=== PATIENT | female | born 1965 | race Hispanic/Latino ===

== ENCOUNTER 2017-12-25 00:12 | Emergency (ER) | payer OTHER, SELFPAY ==
[2017-12-25 00:47] LABS: Urine Bacteria <20 /HPF (<20); Urine Culture Reflex Order REFLEXED; Urine RBC 20-50 /HPF (NONE SEEN)
[2017-12-25 00:52] LABS: Urine Blood 1+ (NEG); Urine Glucose TRACE (NEG); Urine Protein 2+ (NEG); Urine Specific Gravity 1.015 (1.005-1.030)
[2017-12-25] MEDS ORDERED: MORPHINE 4 MG/ML SYR ONE (01:25)
[2017-12-25] MEDS ORDERED: ONDANSETRON 4 MG/2 ML VIAL ONE (01:26)
[2017-12-25 01:29] LABS: Absolute Lymphocytes (CBC) 1.8 K/uL (0.7-4.9); Absolute Monocytes 0.6 K/uL (0.1-1.3); Absolute Neutrophil 4.7 K/uL (1.8-8.0); Basophils % 0.4 % (0-1.3); Eosinophils % 2.8 % (0-4.4); Hematocrit 34.9 % (36.0-45.0); Lymphocytes % 24.3 % (15.3-44.8); MCH 26.4 pg (27.0-35.0); MCV 80.6 fL (80-100); MPV 8.3 fL (7.6-11.3); Monocytes % 8.2 % (3.3-12.3); RBC Red Blood Cell Count 4.33 M/uL (3.86-4.86)
[2017-12-25 01:46] LABS: Bicarbonate 27 mEq/L (21-31); Glucose Level 111 mg/dL (65-120); Potassium 3.4 mEq/L (3.6-5.0); Sodium Level 139 mEq/L (135-145)
[2017-12-25 01:49] LABS: ALT/SGPT 16 IU/L (10-60); AST/SGOT 22 IU/L (10-42); Albumin 3.9 g/dL (3.2-5.5); BUN Blood Urea Nitrogen 8 mg/dL (6-20); Bilirubin Total 0.8 mg/dL (0.3-1.2); Protein, Total 7.7 g/dL (6.0-8.3)
[2017-12-25] MEDS ORDERED: NA CHLORIDE 0.9% 1,000 ML ONE (01:50)
[2017-12-25 01:52] LABS: Amylase Level 69 U/L (28-100); Bilirubin Direct < 0.1 mg/dL (0-0.2)
[2017-12-25 02:11] LABS: Alkaline Phosphatase 107 IU/L (42-121); Lipase 23 U/L (22-51)
[2017-12-25] MEDS ORDERED: POTASSIUM CL SA 10 MEQ TAB PO ONE (03:31)
[2017-12-25] MEDS ORDERED: CEFTRIAXONE/SWI 1gm 1 GM/10 ML SYR ONE (04:10)
--- NOTE | 2017-12-25 04:21 | ER ---
Nurse's Notes [facility] Name: Mi Escoto Age: 52 yrs Sex: Female : 1965 Arrival Date: 12/25/2017 Time: 00:15 Bed 20 Private MD: Diagnosis: Abdominal pain Urinary tract infection Presentation: 12/25 00:33 Presenting complaint: Patient states: she started having lower abdominal pain and bb difficulty urinating since approx 2200 last night. Transition of care: patient was not received from another setting of care. Onset of symptoms was December 24, 2017. Initial Sepsis Screen: Does the patient meet any 2 criteria? No. Patient's initial sepsis screen is negative. Does the patient have a suspected source of infection? No. Patient's initial sepsis screen is negative. Care prior to arrival: None. 00:33 Method Of Arrival: Ambulatory bb 00:33 Acuity: CARMEN 3 bb Triage Assessment: 00:35 General: Appears uncomfortable, Behavior is cooperative, anxious. Pain: Complains of bb pain in abdomen Pain currently is 10 out of 10 on a pain scale. Neuro: Level of Consciousness is awake, alert, obeys commands, Oriented to person, place, time, situation. Cardiovascular: No deficits noted. Respiratory: Respiratory effort is even, unlabored. GI: Abdomen is non-distended. GI: Reports lower abdominal pain. : Reports burning with urination. Derm: Skin is pink, warm \T\ dry. Musculoskeletal: Circulation, motion, and sensation intact. 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 - Social history:: Smoking status: Patient/guardian denies using tobacco, Patient/guardian denies using alcohol, street drugs. Screenin:37 Abuse screen: Denies threats or abuse. Nutritional screening: No deficits noted. bb Tuberculosis screening: No symptoms or risk factors identified. Fall Risk None identified. Assessment: 00:37 Reassessment: No changes from previously documented assessment. see triage assessment. bb 00:38 GI: Bowel sounds present X 4 quads. Abd is soft X 4 quads. bb 01:48 Reassessment: Patient and/or family updated on plan of care and expected duration. Pain bb level reassessed. Patient is alert, oriented x 3, equal unlabored respirations, skin warm/dry/pink. Patient states feeling better. 02:25 Reassessment: pt returned from CT scan via wheelchair tolerated procedure well. bb 03:00 Reassessment: pt appears to be sleeping, eyes closed, resp unlabored, states she is bb feeling better awaiting results of CT scan, IV site intact, patent, with fluids infusing, family at bedside. 04:15 Reassessment: Patient and/or family updated on plan of care and expected duration. Pain bb level reassessed. Patient is alert, oriented x 3, equal unlabored respirations, skin warm/dry/pink. Dr Godfrey at bedside for discussion of findings and recommendations pt to be discharged home on antibiotics and follow-up with PCP as needed. Pt verbalized understanding of and agrees to plan of care discharge instructions given. 04:30 Reassessment: Patient is alert, oriented x 3, equal unlabored respirations, skin bb warm/dry/pink. pt states pain is gone, verbalized understanding of and agrees to plan of care discharge instructions given pt ambulated with steady gait accompanied by spouse. Vital Signs: 00:35 BP 150 / 103; Pulse 110; Resp 20 S; Temp 99(O); Pulse Ox 96% on R/A; Weight 83.01 kg bb (R); Height 5 ft. 5 in. (165.10 cm) (R); Pain 10/10; 01:47 BP 146 / 86; Pulse 70; Resp 20 S; Pulse Ox 97% on R/A; Pain 6/10; bb 02:59 BP 125 / 73; Pulse 67; Resp 18 S; Pulse Ox 96% on R/A; bb 04:16 BP 134 / 82; Pulse 67; Resp 16 S; Temp 98.1(O); Pulse Ox 99% on R/A; Pain 0/10; bb 00:35 Body Mass Index 30.45 (83.01 kg, 165.10 cm) bb ED Course: 00:15 Patient arrived in ED. es 00:22 Jarred Godfrey MD is Attending Physician. pkl 00:31 Josie Flynn, LOGAN is Primary Nurse. bb 00:34 Triage completed. bb 00:35 Arm band placed on Patient placed in an exam room, on a stretcher, on pulse oximetry. bb Family accompanied patient. 00:37 Patient has correct armband on for positive identification. Call light in reach. Side bb rails up X 1. Adult w/ patient. Pulse ox on. NIBP on. 00:37 Urine collected: clean catch specimen. bb 01:20 Initial lab(s) drawn, by me, sent to lab. Inserted saline lock: 20 gauge in right bb antecubital area, using aseptic technique. Blood collected. 02:[address] nj 02:22 CT completed. Patient tolerated procedure well. Patient moved back from [place]. nj 02:23 CT Abd/Pelvis - W/Contrast In Process Unspecified. EDMS 02:57 Urine Culture Sent. bb 04:31 No provider procedures requiring assistance completed. IV discontinued, intact, bb bleeding controlled, No redness/swelling at site. Pressure dressing applied. Administered Medications: 01:27 Drug: morphine 4 mg Route: IVP; Site: right antecubital; bb 01:48 Follow up: Response: No adverse reaction; Pain is decreased bb 01:28 Drug: Zofran 4 mg Route: IVP; Site: right antecubital; bb 01:48 Follow up: Response: No adverse reaction bb 01:47 Drug: NS 0.9% 1000 ml Route: IV; Rate: 1000 ml; Site: right antecubital; bb 03:34 Follow up: IV Status: Completed infusion; IV Intake: 1000ml bb 03:34 Drug: K-Dur 20 mEq Route: PO; bb 04:03 Follow up: Response: No adverse reaction bb 04:15 Drug: Rocephin 1 grams Route: IV; Rate: calculated rate; Site: right antecubital; bb 04:20 Follow up: IV Status: Completed infusion; IV Intake: 10ml bb Intake: 03:34 IV: 1000ml; Total: 1000ml. bb 04:20 IV: 10ml; Total: 1010ml. bb Outcome: 04:20 Discharge ordered by . pkl 04:32 Discharged to home ambulatory, with family. bb 04:32 Condition: stable 04:32 Discharge instructions given to patient, Instructed on discharge instructions, follow up and referral plans. medication usage, Demonstrated understanding of instructions, follow-up care, medications, Prescriptions given X 2. 04:32 Patient left the ED. [email or web address] Addendum: 12/28/2017 08:17 Addendum: Culture Results: Positive urine culture. No further action required. Bacteria a a5 sensitive to prescribed antibiotic. Signatures: Dispatcher [employer] Jarred Nolasco MD MD pkl Salyer, Edna es Ballard, Brenda RN RN Tanya Roman RN RN aa5 Patrick Stacy
--- NOTE | 2017-12-25 04:21 | EDPHYS ---
Physician Documentation [facility] Name: Mi Escoto Age: 52 yrs Sex: Female : 1965 Arrival Date: 12/25/2017 Time: 00:15 Bed 20 Private MD: ED Physician Jarred Godfrey HPI: 12/25 01:39 This 52 yrs old Female presents to ER via Ambulatory with complaints of pkl Abdominal Pain. 01:39 The patient presents with pelvic pain, urinary symptoms, dysuria, frequency. Onset: The pkl symptoms/episode began/occurred just prior to arrival, 3 hour(s) ago. 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 - Social history:: Smoking status: Patient/guardian denies using tobacco, Patient/guardian denies using alcohol, street drugs. ROS: 01:39 Positive for urinary symptoms, urinary frequency, burning with urination, difficulty pkl urinating. 01:39 Eyes: Negative for injury, pain, redness, and discharge, ENT: Negative for injury, pain, and discharge, Neck: Negative for injury, pain, and swelling, Cardiovascular: Negative for chest pain, palpitations, and edema, Respiratory: Negative for shortness of breath, cough, wheezing, and pleuritic chest pain. 01:39 Abdomen/GI: Positive for abdominal pain, of the right lower quadrant and left lower quadrant. 01:39 Back: Negative for acute changes. 01:39 MS/extremity: Negative for acute changes. 01:39 Skin: Negative for rash. 01:39 Neuro: Negative for altered mental status. Exam: 01:39 Head/Face: Normocephalic, atraumatic. Eyes: Pupils equal round and reactive to light, pkl extra-ocular motions intact. Lids and lashes normal. Conjunctiva and sclera are non-icteric and not injected. Cornea within normal limits. Periorbital areas with no swelling, redness, or edema. ENT: Nares patent. No nasal discharge, no septal abnormalities noted. Tympanic membranes are normal and external auditory canals are clear. Oropharynx with no redness, swelling, or masses, exudates, or evidence of obstruction, uvula midline. Mucous membranes moist. Neck: Trachea midline, no thyromegaly or masses palpated, and no cervical lymphadenopathy. Supple, full range of motion without nuchal rigidity, or vertebral point tenderness. No Meningismus. Chest/axilla: Normal chest wall appearance and motion. Nontender with no deformity. No lesions are appreciated. Cardiovascular: Regular rate and rhythm with a normal S1 and S2. No gallops, murmurs, or rubs. Normal PMI, no JVD. No pulse deficits. Respiratory: Lungs have equal breath sounds bilaterally, clear to auscultation and percussion. No rales, rhonchi or wheezes noted. No increased work of breathing, no retractions or nasal flaring. 01:39 Abdomen/GI: Bowel sounds: normal, Palpation: soft, in the right lower quadrant and left lower quadrant, mild abdominal tenderness. 01:39 Back: Exam negative for acute changes. 01:39 Musculoskeletal/extremity: Exam is negative for abrasion. 01:39 Skin: Exam negative for rash. 01:39 Neuro: Orientation: is normal, Mentation: is normal, Cranial nerves: grossly normal, Motor: is normal. Vital Signs: 00:35 BP 150 / 103; Pulse 110; Resp 20 S; Temp 99(O); Pulse Ox 96% on R/A; Weight 83.01 kg bb (R); Height 5 ft. 5 in. (165.10 cm) (R); Pain 10/10; 01:47 BP 146 / 86; Pulse 70; Resp 20 S; Pulse Ox 97% on R/A; Pain 6/10; bb 02:59 BP 125 / 73; Pulse 67; Resp 18 S; Pulse Ox 96% on R/A; bb 04:16 BP 134 / 82; Pulse 67; Resp 16 S; Temp 98.1(O); Pulse Ox 99% on R/A; Pain 0/10; bb 00:35 Body Mass Index 30.45 (83.01 kg, 165.10 cm) MDM: 00:22 Patient medically screened. pkl 04:19 Data reviewed: vital signs, nurses notes, lab test result(s), radiologic studies, CT pkl scan. 12/25 00:32 Order name: Urine Dipstick--Ancillary (enter results); Complete Time: 01:30 12/25 00:32 Order name: UA MICROSCOPIC; Complete Time: 01:30 12/25 00:49 Order name: Urine Culture EDMS 12/25 01:15 Order name: Amylase, Serum; Complete Time: 03:13 12/25 01:15 Order name: Basic Metabolic Panel; Complete Time: 03:13 12/25 01:15 Order name: CBC with Diff; Complete Time: 01:42 12/25 01:15 Order name: Hepatic Function; Complete Time: 03:13 12/25 01:15 Order name: Lipase; Complete Time: 03:13 12/25 01:50 Order name: CT Abd/Pelvis - W/Contrast pkl 12/25 00:32 Order name: Urine Dipstick-Ancillary (obtain specimen); Complete Time: 00:32 12/25 01:15 Order name: IV Saline Lock; Complete Time: 01:15 12/25 01:15 Order name: Labs collected and sent; Complete Time: 01:23 bb Administered Medications: 01:27 Drug: morphine 4 mg Route: IVP; Site: right antecubital; bb 01:48 Follow up: Response: No adverse reaction; Pain is decreased bb 01:28 Drug: Zofran 4 mg Route: IVP; Site: right antecubital; bb 01:48 Follow up: Response: No adverse reaction bb 01:47 Drug: NS 0.9% 1000 ml Route: IV; Rate: 1000 ml; Site: right antecubital; bb 03:34 Follow up: IV Status: Completed infusion; IV Intake: 1000ml bb 03:34 Drug: K-Dur 20 mEq Route: PO; bb 04:03 Follow up: Response: No adverse reaction bb 04:15 Drug: Rocephin 1 grams Route: IV; Rate: calculated rate; Site: right antecubital; bb 04:20 Follow up: IV Status: Completed infusion; IV Intake: 10ml bb Disposition: 12/25/17 04:20 Discharged to Home. Impression: Abdominal pain Urinary tract infection. - Condition is Stable. - Prescriptions for Ultram 50 mg Oral Tablet - take 1 tablet by ORAL route every 8 hours As needed; 20 tablet. Cipro 500 mg Oral Tablet - take 1 tablet by ORAL route every 12 hours for 7 days; 14 tablet. - Medication Reconciliation Form, Thank You Letter, Antibiotic Education, Prescription Opioid Use, Work release form form. - Follow up: Private Physician; When: 2 - 3 days; Reason: Re-evaluation by your physician. - Problem is new. - Symptoms have improved. Signatures: Dispatcher [employer] [facility] Jarred Godfrey MD MD pkl Josie Flynn RN RN bb Corrections: (The following items were deleted from the chart) 01:26 01:15 Creatinine for Radiology+C.LAB.BRZ ordered. [facility] EDPA 04:32 04:20 12/25/2017 04:20 Discharged to Home. Impression: Abdominal pain Urinary tract bb infection. Condition is Stable. Forms are Work release form, Medication Reconciliation Form, Thank You Letter, Antibiotic Education, Prescription Opioid Use. Follow up: Private Physician; When: 2 - 3 days; Reason: Re-evaluation by your physician. Problem is new. Symptoms have improved. pkl
[2017-12-25 04:44] VITALS: BP 134/82; TEMP 98.1; O2SAT 99
--- NOTE | 2017-12-25 09:28 | RAD REPORT ---
EXAM DESCRIPTION: CT - Abdomen Pelvis W Contrast - 12/25/2017 6:05 am CLINICAL HISTORY: Abdominal pain with dysuria COMPARISON: none. TECHNIQUE: Computed axial tomography of the abdomen pelvis was obtained. 100 cc Isovue-300 was admin istered intravenously. Oral contrast was not requested which limits evaluation of bowel. Preliminary report was generated a virtual radiologic and reviewed prior to this dictation All CT scans are performed using dose optimization technique as appropriate and may include automated exposure control or mA/KV adjustment according to patient size. FINDINGS: The liver, spleen, pancreas, adrenal and kidneys appear unremarkable. There is no evidence of diverticulitis. The appendix is normal. An adnexal mass is not seen IMPRESSION: No acute abnormality is displayed.
== END 2017-12-25 04:32 | disposition home or self-care (01) ==
LOC: ER 00:12
DX: N39.0 Urinary tract infection, site not specified (principal); I10 Essential (primary) hypertension
CPT/HCPCS: 36415; 74177; 80048; 80076; 81003; 81015; 82150; 83690; 85025; 87077; 87086; 87088; 87186; 96361; 96374; 96375; 99284; J0696; J2405; J7030; Q9967

== ENCOUNTER 2018-01-14 22:20 | Observation (INO) | payer SELFPAY ==
[2018-01-15] MEDS ORDERED: FAMOTIDINE 20 MG/2 ML VIAL IV ONE (00:16)
[2018-01-15] MEDS ORDERED: ONDANSETRON 4 MG/2 ML VIAL ONE ×2 (00:17→01:21)
[2018-01-15 00:25] LABS: Absolute Lymphocytes (CBC) 0.8 K/uL (0.7-4.9); Absolute Monocytes 0.9 K/uL (0.1-1.3); Absolute Neutrophil 11.2 K/uL (1.8-8.0); Basophils % 0.2 % (0-1.3); Eosinophils % 0.2 % (0-4.4); Hematocrit 35.9 % (36.0-45.0); Lymphocytes % 6.5 % (15.3-44.8); MCH 26.6 pg (27.0-35.0); MCV 82.1 fL (80-100); MPV 8.7 fL (7.6-11.3); RBC Red Blood Cell Count 4.37 M/uL (3.86-4.86)
[2018-01-15 00:35] LABS: Potassium 3.5 mEq/L (3.6-5.0)
[2018-01-15] MEDS ORDERED: MORPHINE 4 MG/ML SYR ONE (00:38)
[2018-01-15 00:42] LABS: Albumin 4.3 g/dL (3.2-5.5); Bilirubin Direct 0.1 mg/dL (0-0.2); Bilirubin Total 0.9 mg/dL (0.3-1.2); Protein, Total 8.4 g/dL (6.0-8.3)
[2018-01-15 01:02] LABS: Blood Morphology Comment NOT SEEN (NOT SEEN); Platelet Estimate ADEQ
--- NOTE | 2018-01-15 05:42 | EDPHYS ---
Physician Documentation [facility] Name: Mi Escoto Age: 52 yrs Sex: Female : 1965 Arrival Date: 01/14/2018 Time: 22:26 Bed 19 Private MD: ED Physician Jarred Godfrey HPI: 01/14 23:50 This 52 yrs old Female presents to ER via Ambulatory with complaints of Flank cp Pain, Epigastric Pain. 23:50 The patient presents with abdominal pain in the epigastric area. The symptoms radiate cp to right back. 23:50 Associated signs and symptoms: Pertinent positives: nausea and vomiting, Pertinent cp negatives: anorexia, blood in stools, constipation, diarrhea, dysuria, fever, vomiting blood. The symptoms are described as constant. Modifying factors: the symptoms are aggravated by pressure. Severity of pain: in the emergency department the pain is unchanged despite home interventions. 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 - Social history:: Smoking status: Patient/guardian denies using tobacco. - Ebola Screening: : Patient negative for fever greater than or equal to 101.5 degrees Fahrenheit, and additional compatible Ebola Virus Disease symptoms. ROS: 01/15 00:00 Constitutional: Negative for body aches, chills, fever. cp 00:00 Eyes: Negative for injury, pain, redness, and discharge. cp 00:00 ENT: Negative for drainage from ear(s), ear pain, sore throat, difficulty swallowing, difficulty handling secretions. 00:00 Cardiovascular: Negative for edema, palpitations. 00:00 Respiratory: Negative for cough, shortness of breath, wheezing. 00:00 Abdomen/GI: Positive for abdominal pain, nausea, vomiting, of the epigastric area, Negative for diarrhea, constipation, hematemesis, black/tarry stool, rectal bleeding. 00:00 Back: Positive for radiated pain, of the right mid back, Negative for injury or acute deformity, decreased range of motion. 00:00 : Negative for urinary symptoms, hematuria. 00:00 Skin: Negative for cellulitis, rash. 00:00 Neuro: Negative for altered mental status, dizziness, headache, weakness. 00:00 All other systems are negative. Exam: 00:05 Constitutional: The patient appears in no acute distress, alert, awake, cp non-diaphoretic, non-toxic, well developed, well nourished, uncomfortable. 00:05 Head/Face: Normocephalic, atraumatic. Eyes: Pupils equal round and reactive to light, cp extra-ocular motions intact. Lids and lashes normal. Conjunctiva and sclera are non-icteric and not injected. Cornea within normal limits. Periorbital areas with no swelling, redness, or edema. ENT: Nares patent. No nasal discharge, no septal abnormalities noted. Tympanic membranes are normal and external auditory canals are clear. Oropharynx with no redness, swelling, or masses, exudates, or evidence of obstruction, uvula midline. Mucous membranes moist. Neck: Trachea midline, no thyromegaly or masses palpated, and no cervical lymphadenopathy. Supple, full range of motion without nuchal rigidity, or vertebral point tenderness. No Meningismus. 00:05 Chest/axilla: Inspection: normal, Palpation: crepitus, is not appreciated, tenderness, that is mild, of the xyphoid area and mid-sternal area. 00:05 Cardiovascular: Rate: normal, Rhythm: regular, Pulses: Pulses are 2+ in right radial artery and left radial artery. 00:05 Respiratory: the patient does not display signs of respiratory distress, Respirations: normal, no use of accessory muscles, no retractions, no splinting, no tachypnea, labored breathing, is not present, Breath sounds: are clear throughout, no decreased breath sounds, no stridor, no wheezing. 00:05 Abdomen/GI: Inspection: scar(s), are noted in the lower anterior aspect of right cp lateral abdomen, Bowel sounds: active, all quadrants, Palpation: soft, in all quadrants, severe abdominal tenderness, in the epigastric area, rebound tenderness, is not appreciated, voluntary guarding, is elicited in the epigastric area. 00:05 Back: pain, that is moderate, of the right mid back, ROM is painful. 00:05 Skin: cellulitis, is not appreciated, no rash present. 00:05 Neuro: Orientation: to person, place \T\ time. Mentation: lucid, able to follow commands, cp Cerebellar function: is grossly normal, Motor: moves all fours, strength is normal, Sensation: no obvious gross deficits. Vital Signs: 01/14 22:54 BP 140 / 91; Pulse 82; Resp 19 S; Temp 98.1(O); Pulse Ox 99% on R/A; Weight 81.65 kg jd3 (R); Height 5 ft. 5 in. (165.10 cm) (R); Pain 04/16; 01/15 01:43 BP 148 / 90; Pulse 69; Resp 18 S; Pulse Ox 99% on R/A; Pain 04/16; jd3 02:48 BP 133 / 76; Pulse 75; Resp 17 S; Pulse Ox 97% on R/A; jd3 04:21 BP 111 / 71; Pulse 71; Resp 17 S; Pulse Ox 95% on R/A; jd3 05:22 BP 131 / 86; Pulse 71; Resp 17 S; Pulse Ox 97% on R/A; jd3 06:54 BP 139 / 91; Pulse 71; Resp 17 S; Pulse Ox 99% on R/A; jd3 01/14 22:54 Body Mass Index 29.95 (81.65 kg, 165.10 cm) jd3 MDM: 01/14 23:26 Patient medically screened. cp 01/15 00:00 Differential diagnosis: cholecystitis, Cholelithiasis, gastritis, pancreatitis, Peptic cp Ulcer Disease, Perf. Duodenal Ulcer, Perf. Gastric Ulcer, Ureterolithiasis, urinary tract infection, acute kidney failure. 03:55 Transition of care: After a detail discussion of the patient's case, care is cp transferred to Jarred Godfrey MD. 05:39 Data reviewed: vital signs, nurses notes, radiologic studies, CT scan. ED course: pkl Talked to Dr. Almeida, for observation. 01/14 23:46 Order name: Amylase, Serum; Complete Time: 01:12 cp 01/14 23:46 Order name: Basic Metabolic Panel; Complete Time: 01:12 cp 01/15 01:14 Interpretation: Normal except: K 3.5; CRE 1.33; GFR 42. 01/14 23:46 Order name: CBC with Diff; Complete Time: 01:12 01/15 01:14 Interpretation: Normal except: WBC 13.0; HGB 11.6; HCT 35.9; MCH 26.6; RDW 15.4; TAMICA% cp 86.1; LYM% 6.5; NEUT A 11.2. 01/14 23:46 Order name: Creatinine for Radiology; Complete Time: 01:12 01/14 23:46 Order name: Hepatic Function; Complete Time: 01:12 01/14 23:46 Order name: Lipase; Complete Time: 01:12 01/14 23:46 Order name: Urine Microscopic Only; Complete Time: 19:06 01/14 23:46 Order name: Troponin I; Complete Time: 01:12 01/15 00:27 Order name: Manual Differential; Complete Time: 01:12 [facility] 01/15 01:15 Interpretation: Normal except: BANDS [F] 6; LYM 10. 01/15 04:01 Order name: Urine Dipstick--Ancillary (enter results) [facility] 01/15 04:01 Order name: Urine --Ancillary (enter results) [facility] 01/15 04:01 Order name: Urine Dipstick-Ancillary; Complete Time: 19:06 [facility] 01/15 04:02 Order name: Urine --Ancillary; Complete Time: 19:06 [facility] 01/15 05:48 Order name: Basic Metabolic Panel [facility] 01/14 23:46 Order name: Urine Test (obtain specimen); Complete Time: 04:22 01/14 23:46 Order name: IV Saline Lock; Complete Time: 00:20 01/14 23:46 Order name: Labs collected and sent; Complete Time: 00:20 01/14 23:46 Order name: Urine Dipstick-Ancillary (obtain specimen); Complete Time: 04:22 01/14 23:46 Order name: EKG; Complete Time: 23:47 01/14 23:49 Order name: XRAY Chest (1 view); Complete Time: 19:06 01/15 01:21 Order name: CT Abd/Pelvis - Without Cont: elevated creatine; Complete Time: 19:06 01/15 05:48 Order name: Basic Metabolic Panel [facility] 01/15 05:48 Order name: CBC with Automated Diff EDMS 01/15 05:48 Order name: CBC with Automated Diff EDMS 01/14 23:46 Order name: EKG - Nurse/Tech; Complete Time: 01:02 cp Administered Medications: 00:45 Drug: morphine 4 mg Route: IVP; Site: right antecubital; jd3 06:52 Follow up: Response: No adverse reaction; Pain is decreased jd3 00:45 Drug: Zofran 4 mg Route: IVP; Site: right antecubital; jd3 06:53 Follow up: Response: No adverse reaction jd3 00:45 Drug: Pepcid 20 mg Route: IVP; Site: right antecubital; jd3 06:53 Follow up: Response: No adverse reaction jd3 01:39 Drug: Zofran 4 mg Route: IVP; Site: right antecubital; jd3 06:53 Follow up: Response: No adverse reaction; Nausea is decreased jd3 05:50 Drug: NS 0.9% 500 ml Route: IV; Rate: bolus; Site: right antecubital; jd3 06:52 Follow up: Response: No adverse reaction; IV Status: Completed infusion; IV Intake: jd3 500ml Disposition: 05:39 Co-signature as Attending Physician, Jarred Godfrey MD. [facility] Disposition: 01/15/18 05:42 Hospitalization ordered by Ghanshyam Almeida for Observation. Preliminary diagnosis is Abdominal pain. Transduodenal internal hernia containing the proximal-mid sigmoid colon. - Bed requested for Telemetry/MedSurg (observation). - Status is Observation. ph - Condition is Stable. - Problem is new. - Symptoms have improved. UTI on Admission? No Signatures: Dispatcher [employer] [facility] Brii Ruiz RN RN mw Lam, Pin, MD MD pkDeepika Hicks RN RN ph Page, Corey, PA PA cp Davies, Jonathon, RN RN jd3 Corrections: (The following items were deleted from the chart) 02:04 01/14 23:47 Abdomen Pelvis W Con+CT.RAD.BRZ ordered. [facility] EDVT 01/15 05:51 05:42 Hospitalization Ordered by Ghanshyam Almeida MD for Observation. Preliminary diagnosis is Abdominal pain. Transduodenal internal hernia containing the proximal-mid sigmoid colon. Bed requested for Telemetry/MedSurg (observation). Status is Observation. Condition is Stable. Problem is new. Symptoms have improved. UTI on Admission? No. pkl 05:58 05:51 01/15/2018 05:42 Hospitalization Ordered by Ghanshyam Almeida MD for Observation. mw Preliminary diagnosis is Abdominal pain. Transduodenal internal hernia containing the proximal-mid sigmoid colon. Bed requested for Telemetry/MedSurg (observation). Status is Observation. Condition is Stable. Problem is new. Symptoms have improved. UTI on Admission? No. mw 08:26 05:58 01/15/2018 05:42 Hospitalization Ordered by Ghanshyam Almeida MD for Observation. ph Preliminary diagnosis is Abdominal pain. Transduodenal internal hernia containing the proximal-mid sigmoid colon. Bed requested for Telemetry/MedSurg (observation). Status is Observation. Condition is Stable. Problem is new. Symptoms have improved. UTI on Admission? No. mw
--- NOTE | 2018-01-15 05:42 | ER ---
Nurse's Notes [facility] Name: Mi Escoto Age: 52 yrs Sex: Female : 1965 Arrival Date: 01/14/2018 Time: 22:26 Bed 19 Private MD: Diagnosis: Abdominal pain. Transduodenal internal hernia containing the proximal-mid sigmoid colon Presentation: 01/14 22:51 Presenting complaint: Patient states: "the upper part of my stomach hurts, and the pain jd3 comes around to my back.". Transition of care: patient was not received from another setting of care. Onset of symptoms was January 13, 2018. Risk Assessment: Do you want to hurt yourself or someone else? Patient reports no desire to harm self or others. Initial Sepsis Screen: Does the patient meet any 2 criteria? No. Patient's initial sepsis screen is negative. Does the patient have a suspected source of infection? No. Patient's initial sepsis screen is negative. Care prior to arrival: None. 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 - Social history:: Smoking status: Patient/guardian denies using tobacco. - Ebola Screening: : Patient negative for fever greater than or equal to 101.5 degrees Fahrenheit, and additional compatible Ebola Virus Disease symptoms. Screenin:58 Abuse screen: Denies threats or abuse. Nutritional screening: No deficits noted. jd3 Tuberculosis screening: No symptoms or risk factors identified. Fall Risk Gait- Normal/Bed Rest/Wheelchair (0 pts) Mental Status- Oriented to own ability (0 pts). Total King Fall Scale indicates No Risk (0-24 pts). Assessment: 22:55 General: Appears uncomfortable, Behavior is cooperative, appropriate for age. Pain: jd3 Complains of pain in epigastric area Pain radiates to back Pain currently is 9 out of 10 on a pain scale. Quality of pain is described as aching, sharp, Pain began 1 day ago. Is continuous, Also complains of nausea. Neuro: Level of Consciousness is awake, alert, obeys commands, Oriented to person, place, time, situation. Cardiovascular: Heart tones S1 S2 present Capillary refill < 3 seconds Patient's skin is warm and dry. Respiratory: Airway is patent Respiratory effort is even, unlabored, Respiratory pattern is regular, symmetrical, Breath sounds are clear bilaterally. GI: Abdomen is round Bowel sounds present X 4 quads. Abd is soft and non tender X 4 quads. Abdomen is tender to palpation in epigastric area Reports nausea, vomiting. : No signs and/or symptoms were reported regarding the genitourinary system. EENT: No signs and/or symptoms were reported regarding the EENT system. Derm: Skin is intact, Skin is dry, Skin is normal, Skin temperature is warm. Musculoskeletal: Circulation, motion, and sensation intact. Range of motion: intact in all extremities. 01/15 01:44 Reassessment: Patient appears in no apparent distress at this time. Patient and/or jd3 family updated on plan of care and expected duration. Pain level reassessed. Patient is alert, oriented x 3, equal unlabored respirations, skin warm/dry/pink. 01:53 Reassessment: CT notified of pt finishing oral contrast. jd3 02:49 Reassessment: Patient appears in no apparent distress at this time. Patient and/or jd3 family updated on plan of care and expected duration. Pain level reassessed. Patient is alert, oriented x 3, equal unlabored respirations, skin warm/dry/pink. awaiting CT scan. 04:21 Reassessment: Patient appears in no apparent distress at this time. Patient and/or jd3 family updated on plan of care and expected duration. Pain level reassessed. Patient is alert, oriented x 3, equal unlabored respirations, skin warm/dry/pink. awaiting CT results and providers disposition. 05:21 Reassessment: Patient appears in no apparent distress at this time. Patient and/or jd3 family updated on plan of care and expected duration. Pain level reassessed. Patient is alert, oriented x 3, equal unlabored respirations, skin warm/dry/pink. waiting on disposition after the provider speaks to surgeon. 06:56 Reassessment: Patient appears in no apparent distress at this time. Patient and/or jd3 family updated on plan of care and expected duration. Pain level reassessed. Patient is alert, oriented x 3, equal unlabored respirations, skin warm/dry/pink. pt waiting for after shift change to be admitted. 08:22 Reassessment: Patient appears in no apparent distress at this time. Patient and/or ph family updated on plan of care and expected duration. Pain level reassessed. Patient is alert, oriented x 3, equal unlabored respirations, skin warm/dry/pink. Report called to Vaishali FORD, pt taken to second floor via wheelchair. Vital Signs: 01/14 22:54 BP 140 / 91; Pulse 82; Resp 19 S; Temp 98.1(O); Pulse Ox 99% on R/A; Weight 81.65 kg jd3 (R); Height 5 ft. 5 in. (165.10 cm) (R); Pain /; 01/15 01:43 BP 148 / 90; Pulse 69; Resp 18 S; Pulse Ox 99% on R/A; Pain 9/10; jd3 02:48 BP 133 / 76; Pulse 75; Resp 17 S; Pulse Ox 97% on R/A; jd3 04:21 BP 111 / 71; Pulse 71; Resp 17 S; Pulse Ox 95% on R/A; jd3 05:22 BP 131 / 86; Pulse 71; Resp 17 S; Pulse Ox 97% on R/A; jd3 06:54 BP 139 / 91; Pulse 71; Resp 17 S; Pulse Ox 99% on R/A; jd3 01/14 22:54 Body Mass Index 29.95 (81.65 kg, 165.10 cm) jd3 ED Course: 01/14 22:26 Patient arrived in ED. am2 22:51 Sarwat Ruiz, LOGAN is Primary Nurse. jd3 22:53 Triage completed. jd3 22:55 Arm band placed on. jd3 22:58 Patient has correct armband on for positive identification. Placed in gown. Bed in low jd3 position. Call light in reach. Side rails up X 1. Adult w/ patient. 23:20 Marciano Pearson PA is PHCP. cp 23:20 Jarred Godfrey MD is Attending Physician. cp 01/15 00:02 Inserted saline lock: 22 gauge in right antecubital area, using aseptic technique. jd3 Blood collected. 00:21 X-ray completed. Portable x-ray completed in exam room. Patient tolerated procedure kw well. 00:22 XRAY Chest (1 view) In Process Unspecified. EDMS 04:08 CT Abd/Pelvis - Without Cont: elevated creatine In Process Unspecified. EDMS 04:12 CT completed. Patient tolerated procedure well. Patient moved to CT via stretcher. Patient moved back from CT. 05:40 Ghanshyam Almeida MD is Hospitalizing Provider. pkl 06:55 No provider procedures requiring assistance completed. Patient admitted, IV remains in jd3 place. Administered Medications: 00:45 Drug: morphine 4 mg Route: IVP; Site: right antecubital; jd3 06:52 Follow up: Response: No adverse reaction; Pain is decreased jd3 00:45 Drug: Zofran 4 mg Route: IVP; Site: right antecubital; jd3 06:53 Follow up: Response: No adverse reaction jd3 00:45 Drug: Pepcid 20 mg Route: IVP; Site: right antecubital; jd3 06:53 Follow up: Response: No adverse reaction jd3 01:39 Drug: Zofran 4 mg Route: IVP; Site: right antecubital; jd3 06:53 Follow up: Response: No adverse reaction; Nausea is decreased jd3 05:50 Drug: NS 0.9% 500 ml Route: IV; Rate: bolus; Site: right antecubital; jd3 06:52 Follow up: Response: No adverse reaction; IV Status: Completed infusion; IV Intake: jd3 500ml Intake: 06:52 IV: 500ml; Total: 500ml. jd3 Outcome: 05:42 Decision to Hospitalize by Provider. pkl 08:25 Admitted to Med/surg accompanied by tech, family with patient, via wheelchair, room ph 211, with chart, Report called to LOGAN Garcia 08:25 Condition: stable 08:25 Instructed on the need for admit. 08:26 Patient left the ED. ph Signatures: Dispatcher [employer] EDJarred Smith MD MD pkl Kaushal, LgMarsha Galindo Patricia, RN RN ph Lili, LEYDI Tariq cp, Amanda am2 Sarwat Ruiz RN RN jd3
[2018-01-15] MEDS ORDERED: MORPHINE 4 MG/ML SYR IV PRN (05:46)
[2018-01-15] MEDS ORDERED: ONDANSETRON 4 MG/2 ML VIAL IV PRN (05:46)
[2018-01-15] MEDS ORDERED: NA CHLORIDE 0.9% 500 ML ONE (05:55)
[2018-01-15 06:01] LABS: Urine Blood NEGATIVE (NEG); Urine Glucose NEGATIVE (NEG); Urine Protein TRACE (NEG); Urine Specific Gravity 1.015 (1.005-1.030); Urine pH 6.5 (5.0-7.0)
[2018-01-15 06:02] LABS: Urine Bacteria <20 /HPF (<20); Urine RBC <5 /HPF (NONE SEEN)
[2018-01-15 06:03] LABS: Urine Culture Reflex Order NOT NEEDED
--- NOTE | 2018-01-15 06:28 | EKG ---
Test Date: 2018-01-15 Test Time: 00:54:42 Phy Therapist: MARY MEASUREMENT RESULTS: Intervals: Rate: 71 WA: 172 QRSD: 78 QT: 436 QTc: 473 Moos[place]: P: 58 WA: 172 QRS: 76 T: 75 INTERPRETIVE STATEMENTS: Normal sinus rhythm Normal ECG Compared to ECG 11/18/2015 10:42:53 No significant changes Electronically Signed On 01-15-18 06:27:52 CDT by Ab Jesus
--- NOTE | 2018-01-15 08:14 | RAD REPORT ---
EXAM DESCRIPTION: Kitty Single View01/15/2018 12:21 am CLINICAL HISTORY: Abdominal pain COMPARISON: April 2017 FINDINGS: The lungs appear clear of acute infiltrate. The heart is normal size IMPRESSION: No acute abnormalities displayed
--- NOTE | 2018-01-15 09:59 | RAD REPORT ---
EXAM DESCRIPTION: CT - Abdomen Pelvis Wo Contrast - 01/15/2018 4:35 am CLINICAL HISTORY: Abdominal pain with with nausea and vomiting. Epigastric pain COMPARISON: December 2017 TECHNIQUE: Computed axial tomography of the abdomen and pelvis was obtained. IV was not requested. O ral contrast was given. Coronal reconstructions performed.A preliminary report was generated by joi pina and reviewed prior to this dictation All CT scans are performed using dose optimization technique as appropriate and may include automated exposure control or mA/KV adjustment according to patient size. FINDINGS: The evaluation of solid organs and vessels is limited secondary to the lack of contrast a dministration. The liver, spleen, pancreas, adrenals and kidneys appear grossly normal. A loop of sigmoid colon measuring 3.9 centimeters has a U shaped appearance within the distal left ab domen at the level of the kidneys. This has developed since the prior exam. The the colon proximal an d distal to this is normal caliber. An adnexal mass is not seen. A trace amount of free fluid is present within the pelvis. IMPRESSION: Loop of sigmoid colon with a U shaped appearance and mild narrowing of the proximal and distal component within the left abdomen may indicate an internal hernia. Currently it does not resul t in an obstruction.
[2018-01-15] MEDS: D5 0.45 NS 1,000 ML IV SCH ×3 (11:27→22:00)
[2018-01-15 11:32] VITALS: BMI 29.9
[2018-01-15] MEDS: ACETAMINOPHEN 500 MG TAB PO PRN (11:39)
--- NOTE | 2018-01-15 14:58 | P.HP ---
Date of Service: 01/15/18 PC: This 52-year-old female presents emergency room with severe abdominal pain for diagnosis and treatment. HPC: Patient had sudden onset of abdominal pain, describes it as severe, associated with nausea and vomiting. Located in the upper portion of her abdomen. No aggravating factors. Had been out working in the [employer] during the weekend. PMH: Takes lisinopril for hypertension PSHx: Previous tubal ligation in [place] SOC: No known allergies SYS REVIEW: No cough, wheeze, shortness of breath. No chest pain or palpitations. No change in bowel habit. States he has otherwise been a healthy lady. No urinary complaints. Good exercise tolerance O/E awake alert comfortable at the moment HEENT: Not jaundice Chest: Clear ABD: Soft nontender no masses are palpable. Abdomen is flat. LOCO: Intact DATA: Elevated white cell count on admission, CT scan suggests some type of internal hernia ever sigmoid colon IMPRESSION: Patient is relatively asymptomatic at the moment. PLAN: Get patient up ambulating, IV fluids, will start on liquid diet and if tolerated anticipate will also give her some mineral oil. She could follow up with her primary care physician. She does not require emergency intervention at this time.
[2018-01-15] MEDS ORDERED: MINERAL OIL 30 ML UCUP PO ONE (16:00)
[2018-01-15 21:52] LABS: Urine Appearance CLEAR; Urine Bilirubin NEGATIVE (NEG); Urine Blood NEGATIVE (NEG); Urine Color YELLOW; Urine Glucose NEGATIVE (NEG); Urine Protein NEGATIVE (NEG); Urine Specific Gravity <=1.005 (1.005-1.030); Urine Urobilinogen 0.2 mg/dL (0.2-1.0); Urine pH 6.5 (5.0-7.0)
[2018-01-15 21:55] LABS: Urine Microscopic Reflex NO UMIC
[2018-01-15 22:46] VITALS: O2SAT 97
[2018-01-16 05:46] LABS: Potassium 3.6 mEq/L (3.6-5.0)
[2018-01-16 05:51] LABS: Absolute Lymphocytes (CBC) 1.7 K/uL (0.7-4.9); Absolute Monocytes 0.5 K/uL (0.1-1.3); Absolute Neutrophil 1.7 K/uL (1.8-8.0); Basophils % 0.7 % (0-1.3); Eosinophils % 5.9 % (0-4.4); Lymphocytes % 40.7 % (15.3-44.8); MCH 26.9 pg (27.0-35.0); MCV 82.4 fL (80-100); MPV 8.6 fL (7.6-11.3); Monocytes % 12.1 % (3.3-12.3)
[2018-01-16] MEDS: D5 0.45 NS 1,000 ML IV SCH ×2 (06:10→14:00)
[2018-01-16] MEDS: ACETAMINOPHEN 500 MG TAB PO PRN (06:14)
[2018-01-16 17:23] VITALS: BP 141/75; TEMP 97.7
== END 2018-01-16 19:36 | disposition home or self-care (01) ==
LOC: ER 22:20 → ERHOLD 01-15 05:48 → 2ND 01-15 06:15
PROVIDERS: ADMIT Surgery; ATTEND Surgery
DX: R10.10 Upper abdominal pain, unspecified (principal); R11.2 Nausea with vomiting, unspecified; I10 Essential (primary) hypertension
CPT/HCPCS: 36415; 71045; 74176; 80048; 80076; 81003; 81015; 81025; 82150; 83690; 84484; 85025; 93005; 96361; 96374; 96375; 99285; G0378; J2405

== ENCOUNTER 2019-06-09 09:39 | Emergency (ER) | payer OTHER ==
[2019-06-09] MEDS ORDERED: HYDROCODONE/APAP 10/325 TAB ONE (10:19)
--- NOTE | 2019-06-09 11:01 | ER ---
Nurse's Notes [facility] Name: Mi Escoto Age: 53 yrs Sex: Female : 1965 Arrival Date: 06/09/2019 Time: 09:41 Bed 6 Private MD: Diagnosis: Pain in left foot Presentation: 06/09 09:43 Presenting complaint: Patient states: Left foot pain since last night, no trauma la1 reported. Transition of care: patient was not received from another setting of care. Onset of symptoms was June 09, 2019. Risk Assessment: Do you want to hurt yourself or someone else? Patient reports no desire to harm self or others. Initial Sepsis Screen: Does the patient meet any 2 criteria? No. Patient's initial sepsis screen is negative. Does the patient have a suspected source of infection? No. Patient's initial sepsis screen is negative. Care prior to arrival: None. 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 - Social history:: Smoking status: Patient/guardian denies using tobacco. - Ebola Screening: : No symptoms or risks identified at this time. - Family history:: not pertinent. - Hospitalizations: : No recent hospitalization is reported. Screenin:59 Abuse screen: Denies threats or abuse. Denies injuries from another. Nutritional ch screening: No deficits noted. Tuberculosis screening: No symptoms or risk factors identified. Fall Risk None identified. Assessment: 09:51 General: Appears in no apparent distress. comfortable, Behavior is calm, cooperative, ch appropriate for age. Pain: Complains of pain in left foot Pain currently is 7 out of 10 on a pain scale. Neuro: No deficits noted. Cardiovascular: No deficits noted. Respiratory: Airway is patent Respiratory effort is even, unlabored, Breath sounds are clear bilaterally. GI: No signs and/or symptoms were reported involving the gastrointestinal system. Derm: Skin is pink, warm \T\ dry. Reports pain that is 7 out of 10 on a pain scale. Musculoskeletal: Capillary refill < 3 seconds, Range of motion: intact in all extremities, Swelling absent Tenderness present in ball of left foot and dorsum of left foot. 10:51 Reassessment: Patient appears in no apparent distress at this time. Patient and/or ch family updated on plan of care and expected duration. Pain level reassessed. Patient is alert, oriented x 3, equal unlabored respirations, skin warm/dry/pink. 11:11 Reassessment: Patient appears in no apparent distress at this time. Patient and/or ch family updated on plan of care and expected duration. Pain level reassessed. Patient is alert, oriented x 3, equal unlabored respirations, skin warm/dry/pink. Patient states feeling better. Patient states symptoms have improved. Vital Signs: 09:44 BP 114 / 80; Pulse 84; Resp 16; Temp 97.5; Pulse Ox 100% on R/A; Weight 86.18 kg; la1 Height 5 ft. 5 in. (165.10 cm); 10:51 BP 120 / 78; Pulse 65; Resp 14; Temp 98.5; Pulse Ox 99% on R/A; Pain 7/10; ch 09:44 Body Mass Index 31.62 (86.18 kg, 165.10 cm) la1 ED Course: 09:41 Patient arrived in ED. as 09:44 Triage completed. la1 09:45 Colt Gusman MD is Attending Physician. rn 09:45 Arm band placed on left wrist. la1 09:47 Marion Christensen, LOGAN is Primary Nurse. jl7 09:51 Deena Crocker, RN is Primary Nurse. ch 09:59 No apparent distress. Resting quietly. ch 09:59 Patient has correct armband on for positive identification. Bed in low position. Call light in reach. Side rails up X 1. Warm blanket given. 09:59 No provider procedures requiring assistance completed. Patient did not have IV access ch during this emergency room visit. 10:23 XRAY Foot LEFT 3 View In Process Unspecified. EDMS Administered Medications: 10:25 Drug: [place] 10 mg-325 mg 1 tabs Route: PO; ch 10:51 Follow up: Response: No adverse reaction ch Outcome: 11:01 Discharge ordered by . rn 11:11 Discharged to home ambulatory, with family. ch 11:11 Condition: stable 11:11 Discharge instructions given to patient, family, Instructed on discharge instructions, follow up and referral plans. medication usage, Demonstrated understanding of instructions, follow-up care, medications, Prescriptions given X 1. 11:13 Discharged to home ambulatory. jl7 11:13 Condition: stable 11:13 Discharge instructions given to patient, Instructed on discharge instructions, follow up and referral plans. medication usage, Demonstrated understanding of instructions, follow-up care, medications, Prescriptions given X 1. 11:14 Patient left the ED. jl7 Signatures: Dispatcher [employer] EDMS Deena Crocker, RN RN Eliana Delatorre Roman, MD MD rn Attema, Lee, RN RN Marion Babin RN RN jl7
--- NOTE | 2019-06-09 11:01 | EDPHYS ---
Physician Documentation [facility] Name: Mi Escoto Age: 53 yrs Sex: Female : 1965 Arrival Date: 06/09/2019 Time: 09:41 Bed 6 Private MD: ED Physician Colt Gusman HPI: 06/09 09:52 This 53 yrs old Female presents to ER via Ambulatory with complaints of Foot rn Pain. 09:52 The patient presents with pain. The complaints affect the left foot. Onset: The rn symptoms/episode began/occurred last night. Modifying factors: The symptoms are alleviated by nothing, the symptoms are aggravated by weight bearing, movement. Severity of symptoms: At their worst the symptoms were moderate, in the emergency department the symptoms are unchanged. The patient has experienced a previous episode. Reports left foot pain, worse with ambulation, no injury, no new shoes, no known trauma. Reports happened once before and got better with OTC meds and home remedy. Reports injury to foot with fractures 1 year ago. . 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 - Social history:: Smoking status: Patient/guardian denies using tobacco. - Ebola Screening: : No symptoms or risks identified at this time. - Family history:: not pertinent. - Hospitalizations: : No recent hospitalization is reported. ROS: 09:52 Constitutional: Negative for fever, chills, and weight loss, MS/Extremity: Negative for rn injury and deformity, Skin: Negative for injury, rash, and discoloration, Neuro: Negative for weakness, numbness, tingling, and seizure. Exam: 09:52 Constitutional: This is a well developed, well nourished patient who is awake, alert, rn and in no acute distress. MS/ Extremity: Pulses equal, no cyanosis. Neurovascular intact. Full, normal range of motion. Equal circumference. + pain with squeezing mid-foot of left foot but no focal bony tenderness or deformity. NO pain with ROM of any toes. No skin changes or cellulitis. Vital Signs: 09:44 BP 114 / 80; Pulse 84; Resp 16; Temp 97.5; Pulse Ox 100% on R/A; Weight 86.18 kg; la1 Height 5 ft. 5 in. (165.10 cm); 10:51 BP 120 / 78; Pulse 65; Resp 14; Temp 98.5; Pulse Ox 99% on R/A; Pain 7/10; ch 09:44 Body Mass Index 31.62 (86.18 kg, 165.10 cm) la1 MDM: 09:45 Patient medically screened. rn 09:52 ED course: Reports feels like burning sensation. . rn 11:00 Differential diagnosis: sprain, arthritis, gout. Data reviewed: vital signs, nurses rn notes, radiologic studies, plain films, and as a result, I will discharge patient. Counseling: I had a detailed discussion with the patient and/or guardian regarding: the historical points, exam findings, and any diagnostic results supporting the discharge/admit diagnosis, radiology results, the need for outpatient follow up, to return to the emergency department if symptoms worsen or persist or if there are any questions or concerns that arise at home. Response to treatment: the patient's symptoms have mildly improved after treatment, and as a result, I will discharge patient. ED course: Ambulatory to bathroom, no acute findings on xray foot. . 06/09 09:51 Order name: XRAY Foot LEFT 3 View rn Administered Medications: 10:25 Drug: [place] 10 mg-325 mg 1 tabs Route: PO; 10:51 Follow up: Response: No adverse reaction Disposition: 06/09/19 11:01 Discharged to Home. Impression: Pain in left foot. - Condition is Stable. - Discharge Instructions: Musculoskeletal Pain, Pain Without a Known Cause, Foot Pain. - Prescriptions for Ultram 50 mg Oral Tablet - take 1 tablet by ORAL route every 6 hours As needed; 15 tablet. - Medication Reconciliation Form, Thank You Letter, Antibiotic Education, Prescription Opioid Use form. - Follow up: Private Physician; When: As needed; Reason: Recheck today's complaints, Re-evaluation by your physician. - Problem is new. - Symptoms have improved. Signatures: Dispatcher [employer] EDMS Deena Crocker RN RN Colt Gusman MD MD rn Attema, Lee, RN RN la1 Marion Christensen RN RN jl7 Corrections: (The following items were deleted from the chart) 11:14 11:01 06/09/2019 11:01 Discharged to Home. Impression: Pain in left foot. Condition is jl7 Stable. Forms are Medication Reconciliation Form, Thank You Letter, Antibiotic Education, Prescription Opioid Use. Follow up: Private Physician; When: As needed; Reason: Recheck today's complaints, Re-evaluation by your physician. Problem is new. Symptoms have improved. rn
[2019-06-09 11:57] VITALS: BP 120/78; TEMP 98.5; O2SAT 99
--- NOTE | 2019-06-09 13:07 | RAD REPORT ---
EXAM DESCRIPTION: RAD - Foot Left 3 View - 06/09/2019 10:20 am CLINICAL HISTORY: PAIN COMPARISON: <Comparisons> FINDINGS: No fracture, dislocation or aggressive marrow pattern. Small calcaneal spurs.
== END 2019-06-09 11:14 | disposition home or self-care (01) ==
LOC: ER 09:39
DX: M79.672 Pain in left foot (principal)
CPT/HCPCS: 99283

== ENCOUNTER 2019-07-14 10:36 | Emergency (ER) | payer OTHER ==
--- OUTSIDE RECORDS SUMMARY | 2019-07-14 10:38 | XMS REPORT ---
:1965 [facility] [address] [place] [address] Dr. Lopez [address] [place] [id number] Care Team Providers Name Role Phone Unavailable Unavailable Unavailable Problems This patient has no known problems. Allergies, Adverse Reactions, Alerts This patient has no known allergies or adverse reactions. Medications This patient has no known medications.
[2019-07-14] MEDS ORDERED: dexAMETHasone 10 MG/ML VIAL ONE (11:13)
--- NOTE | 2019-07-14 11:50 | EDPHYS ---
Physician Documentation [facility] Name: Mi Escoto Age: 53 yrs Sex: Female : 1965 Arrival Date: 07/14/2019 Time: 10:39 Bed 11 Private MD: ED Physician Pedro Pablo Ralph HPI: 07/14 11:07 This 53 yrs old Female presents to ER via Ambulatory with complaints of Sore jmm Throat. 11:07 The patient presents with sore throat. The patient describes throat pain as burning. jmm Onset: The symptoms/episode began/occurred gradually, 3 day(s) ago. Modifying factors: The symptoms are alleviated by nothing, the symptoms are aggravated by nothing. Associated signs and symptoms: Pertinent positives: chills, cough. This is a 53 year old female with a history of htn, that presents to the ED with complaints of sore throat, chills, sinus pressure beginning 3 days ago. . Historical: - Allergies: 10:41 NKA; sg - Home Meds: 10:41 fluoxetine 20 mg Oral cap 1 cap once daily [Active]; lisinopril-hydrochlorothiazide sg 10-12.5 mg Oral tab 1 tab twice a day [Active]; - PMHx: 10:41 Arthritis; Hypertension; sg - Immunization history:: Adult Immunizations up to date. - Social history:: Smoking status: . - Ebola Screening: : Patient negative for fever greater than or equal to 101.5 degrees Fahrenheit, and additional compatible Ebola Virus Disease symptoms Patient denies exposure to infectious person Patient denies travel to an Ebola-affected area in the 21 days before illness onset No symptoms or risks identified at this time. ROS: 11:07 Constitutional: Positive for body aches, chills. jmm 11:07 ENT: Positive for sore throat. 11:07 Respiratory: Positive for cough. 11:07 All other systems are negative. Exam: 11:07 Constitutional: This is a well developed, well nourished patient who is awake, alert, jmm and in no acute distress. Head/Face: atraumatic. Eyes: EOMI, no conjunctival erythema appreciated ENT: Moist Mucus Membranes Neck: Trachea midline, Supple Chest/axilla: Normal chest wall appearance and motion. Cardiovascular: Regular rate and rhythm. No edema appreciated Respiratory: Normal respirations, no respiratory distress appreciated Abdomen/GI: Non distended, soft Back: Normal ROM Skin: General appearance color normal MS/ Extremity: Moves all extremities, no obvious deformities appreciated, no edema noted to the lower extremities Neuro: Awake and alert, normal gait Psych: Behavior is normal, Mood is normal, Patient is cooperative and pleasant 11:07 ENT: Posterior pharynx: Airway: normal, Uvula: midline, erythema, that is moderate. Vital Signs: 10:42 BP 124 / 88; Pulse 87; Resp 16; Temp 98.3; Pulse Ox 99% on R/A; iw MDM: 11:04 Patient medically screened. [facility] 11:45 Data reviewed: vital signs, nurses notes. Counseling: I had a detailed discussion with [facility] the patient and/or guardian regarding: the historical points, exam findings, and any diagnostic results supporting the discharge/admit diagnosis, lab results, the need for outpatient follow up, to return to the emergency department if symptoms worsen or persist or if there are any questions or concerns that arise at home. ED course: Patient is alert and non toxic in appearance in the ED. Advised to follow up with pcp and otherwise given strict return precautions. Patient understood and agrees with the plan of care. . 07/14 11:07 Order name: Flu; Complete Time: 11:45 [facility] 12 11:07 Order name: Strep; Complete Time: 11:45 [facility] 07/14 11:37 Order name: Throat Culture EDMS Administered Medications: 11:17 Drug: Dexamethasone 10 mg Route: IM; Site: left deltoid; iw Disposition: 07/15 08:31 Co-signature as Attending Physician, Pedro Pablo Ralph MD I agree with the assessment and kdr plan of care. Disposition: 07/14/19 11:48 Discharged to Home. Impression: Acute pharyngitis. - Condition is Stable. - Discharge Instructions: Pharyngitis. - Prescriptions for Zithromax Z- Oleg 250 mg Oral Tablet - take 1 tablet by ORAL route as directed for 5 days Day 1 - take two (2) tablets one time. Day 2, 3, 4 , 5 take one (1) tablet once daily.; 6 tablet. - Medication Reconciliation Form, Thank You Letter, Antibiotic Education, Prescription Opioid Use form. - Follow up: Private Physician; When: 2 - 3 days; Reason: Recheck today's complaints, Continuance of care, Re-evaluation by your physician. Signatures: Dispatcher [employer] Tiago Angeles, RN RN Pedro Pablo Abel MD MD kdr Mickail, Joel, PA PA jmm Williams, Irene, RN RN iw Corrections: (The following items were deleted from the chart) 07/14 11:56 11:48 07/14/2019 11:48 Discharged to Home. Impression: Acute pharyngitis. Condition is iw Stable. Forms are Medication Reconciliation Form, Thank You Letter, Antibiotic Education, Prescription Opioid Use. Follow up: Private Physician; When: 2 - 3 days; Reason: Recheck today's complaints, Continuance of care, Re-evaluation by your physician. aletha
--- NOTE | 2019-07-14 11:50 | ER ---
Nurse's Notes [facility] Name: Mi Escoto Age: 53 yrs Sex: Female : 1965 Arrival Date: 07/14/2019 Time: 10:39 Bed 11 Private MD: Diagnosis: Acute pharyngitis Presentation: 07/14 10:42 Presenting complaint: Patient states: Sorethroat, jaw pain and pain when swallowing x3 sg days, reports painful with deep breathing in chest as well, unsure if any fever at home. Transition of care: patient was not received from another setting of care. Onset of symptoms was July 14, 2019. Risk Assessment: Do you want to hurt yourself or someone else? Patient reports no desire to harm self or others. Initial Sepsis Screen: Does the patient meet any 2 criteria? No. Patient's initial sepsis screen is negative. Does the patient have a suspected source of infection? No. Patient's initial sepsis screen is negative. Care prior to arrival: None. 10:42 Method Of Arrival: Ambulatory sg 10:42 Acuity: CARMEN 4 sg Historical: - Allergies: 10:41 NKA; sg - Home Meds: 10:41 fluoxetine 20 mg Oral cap 1 cap once daily [Active]; lisinopril-hydrochlorothiazide sg 10-12.5 mg Oral tab 1 tab twice a day [Active]; - PMHx: 10:41 Arthritis; Hypertension; sg - Immunization history:: Adult Immunizations up to date. - Social history:: Smoking status: . - Ebola Screening: : Patient negative for fever greater than or equal to 101.5 degrees Fahrenheit, and additional compatible Ebola Virus Disease symptoms Patient denies exposure to infectious person Patient denies travel to an Ebola-affected area in the 21 days before illness onset No symptoms or risks identified at this time. Assessment: 10:39 Pain: Complains of pain in left aspect of posterior pharynx, right aspect of posterior sg pharynx, right jaw and left jaw Quality of pain is described as aching. Cardiovascular: Capillary refill is brisk in bilateral fingers Patient's skin is warm and dry. Chest pain is denied. Respiratory: Reports pain with respiration Airway is patent Respiratory effort is even, unlabored, Respiratory pattern is regular, symmetrical, Breath sounds are clear. GI: Abdomen is round non-distended. : No signs and/or symptoms were reported regarding the genitourinary system. EENT: Oral mucosa is moist. Throat is reddened. Derm: Skin is pink, warm \T\ dry. Musculoskeletal: Circulation, motion, and sensation intact. Range of motion: intact in all extremities. Vital Signs: 10:42 BP 124 / 88; Pulse 87; Resp 16; Temp 98.3; Pulse Ox 99% on R/A; iw ED Course: 10:39 Patient arrived in ED. mr 10:41 Arm band placed on. sg 10:42 Triage completed. sg 10:50 Adan Ordonez PA is PHCP. [facility] 10:51 Pedro Pablo Ralph MD is Attending Physician. [facility] 11:10 Mirela Vang, LOGAN is Primary Nurse. iw 11:13 Flu and/or RSV swab sent to lab. St[facility] sg Administered Medications: 11:17 Drug: Dexamethasone 10 mg Route: IM; Site: left deltoid; iw Outcome: 11:48 Discharge ordered by . [facility] 11:56 Patient left the ED. iw Signatures: Tiago Nuñez, RN RN Adan Ordonez PA PA jmm Rivera, Mary mr Mirela Vang, LOGAN RN iw Corrections: (The following items were deleted from the chart) 11:18 10:42 BP 124 / 88; Pulse 87bpm; Resp 16bpm; Pulse Ox 99% RA; sg iw
[2019-07-14 12:39] VITALS: BP 124/88; TEMP 98.3; O2SAT 99
== END 2019-07-14 11:56 | disposition home or self-care (01) ==
LOC: ER 10:36
DX: J02.9 Acute pharyngitis, unspecified (principal); I10 Essential (primary) hypertension
CPT/HCPCS: 87070; 87081; 87804 ×2; 96372; 99283; J1100

== ENCOUNTER 2019-09-05 14:36 | Emergency (ER) | payer OTHER ==
--- OUTSIDE RECORDS SUMMARY | 2019-09-05 14:37 | XMS REPORT ---
:1965 [facility] Address [address] [place] [address] Dr. Osborn[address] [place] [id number] Care Team Providers Name Role Phone Unavailable Unavailable Unavailable Problems This patient has no known problems. Allergies, Adverse Reactions, Alerts This patient has no known allergies or adverse reactions. Medications This patient has no known medications.
--- NOTE | 2019-09-05 15:45 | EDPHYS ---
Physician Documentation [facility] Name: Mi Ortiz Age: 54 yrs Sex: Female : 1965 Arrival Date: 09/05/2019 Time: 14:38 Bed 26 Private MD: ED Physician Colt Gusman HPI: 09/05 15:41 This 54 yrs old Female presents to ER via Ambulatory with complaints of Pain kb With Urination. 15:41 The patient presents with urinary symptoms, dysuria. Onset: The symptoms/episode kb began/occurred 1 week(s) ago. Modifying factors: The symptoms are alleviated by nothing, the symptoms are aggravated by urinating. Associated signs and symptoms: Pertinent positives: dysuria. Severity of symptoms: At their worst the symptoms were moderate, in the emergency department the symptoms are unchanged. The patient has not experienced similar symptoms in the past. The patient has not recently seen a physician. Dysuria for one week. Reports has had bladder prolapse for 6 months. 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 - Coronavirus screen:: The patient has NOT traveled to [place], [place], or [place] in the past 14 days. The patient has NOT had contact with known/suspected case of Coronavirus?. - Social history:: Smoking status: Patient denies any tobacco usage or history of. - Ebola Screening: : Patient negative for fever greater than or equal to 101.5 degrees Fahrenheit, and additional compatible Ebola Virus Disease symptoms Patient denies exposure to infectious person Patient denies travel to an Ebola-affected area in the 21 days before illness onset No symptoms or risks identified at this time. ROS: 15:34 Constitutional: Negative for fever, chills, and weight loss, Cardiovascular: Negative kb for chest pain, palpitations, and edema, Respiratory: Negative for shortness of breath, cough, wheezing, and pleuritic chest pain, Abdomen/GI: Negative for abdominal pain, nausea, vomiting, diarrhea, and constipation, Back: Negative for injury and pain, MS/Extremity: Negative for injury and deformity, Skin: Negative for injury, rash, and discoloration, Neuro: Negative for headache, weakness, numbness, tingling, and seizure. 15:34 : Positive for burning with urination. Exam: 15:34 Constitutional: This is a well developed, well nourished patient who is awake, alert, kb and in no acute distress. Head/Face: Normocephalic, atraumatic. ENT: Nares patent. No nasal discharge, no septal abnormalities noted. Tympanic membranes are normal and external auditory canals are clear. Oropharynx with no redness, swelling, or masses, exudates, or evidence of obstruction, uvula midline. Mucous membranes moist. Neck: Trachea midline, no thyromegaly or masses palpated, and no cervical lymphadenopathy. Supple, full range of motion without nuchal rigidity, or vertebral point tenderness. No Meningismus. Chest/axilla: Normal chest wall appearance and motion. Nontender with no deformity. No lesions are appreciated. Cardiovascular: Regular rate and rhythm with a normal S1 and S2. No gallops, murmurs, or rubs. Normal PMI, no JVD. No pulse deficits. Respiratory: Lungs have equal breath sounds bilaterally, clear to auscultation and percussion. No rales, rhonchi or wheezes noted. No increased work of breathing, no retractions or nasal flaring. Abdomen/GI: Soft, non-tender, with normal bowel sounds. No distension or tympany. No guarding or rebound. No evidence of tenderness throughout. Skin: Warm, dry with normal turgor. Normal color with no rashes, no lesions, and no evidence of cellulitis. MS/ Extremity: Pulses equal, no cyanosis. Neurovascular intact. Full, normal range of motion. Neuro: Awake and alert, GCS 15, oriented to person, place, time, and situation. Cranial nerves II-XII grossly intact. Motor strength 5/5 in all extremities. Sensory grossly intact. Cerebellar exam normal. Normal gait. 15:34 : Pelvic Exam: pelvic organ prolapse. Vital Signs: 14:48 BP 102 / 65; Pulse 64; Resp 19 S; Temp 98(O); Pulse Ox 99% on R/A; Weight 88.45 kg (R); ca1 Height 5 ft. 5 in. (165.10 cm); 16:09 BP 118 / 77; Pulse 73; Resp 16; Pulse Ox 100% ; sv 14:48 Body Mass Index 32.45 (88.45 kg, 165.10 cm) ca1 MDM: 14:51 Patient medically screened. kb 15:40 Data reviewed: vital signs, nurses notes. Data interpreted: Pulse oximetry: on room air kb is 99 %. Interpretation: normal. Counseling: I had a detailed discussion with the patient and/or guardian regarding: the historical points, exam findings, and any diagnostic results supporting the discharge/admit diagnosis, lab results, the need for outpatient follow up, a family practitioner, an OB/Gyne specialist, to return to the emergency department if symptoms worsen or persist or if there are any questions or concerns that arise at home. 09/05 15:05 Order name: Urine Dipstick--Ancillary (enter results); Complete Time: 16:06 eb 09/05 14:39 Order name: Urine Dipstick-Ancillary (obtain specimen); Complete Time: 15:05 kb 09/05 15:05 Order name: Urine --Ancillary (enter results); Complete Time: 16:06 eb Administered Medications: 16:08 Drug: Macrobid 100 mg Route: PO; sv 16:08 Follow up: Response: Medication administered at discharge. sv Disposition: 17:09 Co-signature as Attending Physician, Colt Gusman MD. rn Disposition: 09/05/19 15:45 Discharged to Home. Impression: Urinary tract infection, site not specified. - Condition is Stable. - Discharge Instructions: Urinary Tract Infection, Adult, [id number], Pelvic Organ Prolapse. - Prescriptions for Macrobid 100 mg Oral Capsule - take 1 capsule by ORAL route every 12 hours for 10 days; 20 capsule. - Medication Reconciliation Form, Thank You Letter, Antibiotic Education, Prescription Opioid Use form. - Work release form (09/05/19 16:17). kb - Follow up: Emergency Department; When: As needed; Reason: Worsening of condition. Follow up: Private Physician; When: 2 - 3 days; Reason: Recheck today's complaints, Continuance of care, Re-evaluation by your physician. Signatures: Dispatcher [employer] Rhiannon Ramirez, Rafaela Calderon RN RN sv Colt Gusman MD MD rn Acob, Tiffani RN RN ca1 Corrections: (The following items were deleted from the chart) 15:41 15:40 Counseling: I had a detailed discussion with the patient and/or guardian susie regarding: the historical points, exam findings, and any diagnostic results supporting the discharge/admit diagnosis, lab results, the need for outpatient follow up, a family practitioner, to return to the emergency department if symptoms worsen or persist or if there are any questions or concerns that arise at home, susie 16:09 15:45 09/05/2019 15:45 Discharged to Home. Impression: Urinary tract infection, site sv not specified. Condition is Stable. Forms are Medication Reconciliation Form, Thank You Letter, Antibiotic Education, Prescription Opioid Use. Follow up: Emergency Department; When: As needed; Reason: Worsening of condition. Follow up: Private Physician; When: 2 - 3 days; Reason: Recheck today's complaints, Continuance of care, Re-evaluation by your physician. kb
--- NOTE | 2019-09-05 15:45 | ER ---
Nurse's Notes [facility] Name: Mi Ortiz Age: 54 yrs Sex: Female : 1965 Arrival Date: 09/05/2019 Time: 14:38 Bed 26 Private MD: Diagnosis: Urinary tract infection, site not specified Presentation: 09/05 14:45 Presenting complaint: Patient states: Vaginal pain and pain with urination x 1 weak. ca1 Denies fever, N/V. Transition of care: patient was not received from another setting of care. Onset of symptoms was September 05, 2019. Risk Assessment: Do you want to hurt yourself or someone else? Patient reports no desire to harm self or others. Initial Sepsis Screen: Does the patient meet any 2 criteria? No. Patient's initial sepsis screen is negative. Does the patient have a suspected source of infection? No. Patient's initial sepsis screen is negative. Care prior to arrival: None. 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 - Coronavirus screen:: The patient has NOT traveled to [place], [place], or [place] in the past 14 days. The patient has NOT had contact with known/suspected case of Coronavirus?. - Social history:: Smoking status: Patient denies any tobacco usage or history of. - Ebola Screening: : Patient negative for fever greater than or equal to 101.5 degrees Fahrenheit, and additional compatible Ebola Virus Disease symptoms Patient denies exposure to infectious person Patient denies travel to an Ebola-affected area in the 21 days before illness onset No symptoms or risks identified at this time. Screenin:10 Abuse screen: Denies threats or abuse. Nutritional screening: No deficits noted. vc Tuberculosis screening: No symptoms or risk factors identified. Fall Risk None identified. Assessment: 15:06 General: Appears in no apparent distress. uncomfortable, Behavior is calm, cooperative, vc quiet. Pain: Complains of pain in burning with urination. Neuro: Level of Consciousness is awake, alert, obeys commands, Oriented to person, place, time. Cardiovascular: Capillary refill < 3 seconds Patient's skin is warm and dry. Respiratory: Airway Respiratory effort is even, unlabored, Respiratory pattern is regular. GI: No deficits noted. : Urine is cloudy, Reports burning with urination, pain with urination. EENT: No signs and/or symptoms were reported regarding the EENT system. Derm: Skin temperature is warm. Musculoskeletal: Circulation, motion, and sensation intact. Range of motion: intact in all extremities. 16:08 Reassessment: Patient appears in no apparent distress at this time. No changes from sv previously documented assessment. Patient and/or family updated on plan of care and expected duration. Pain level reassessed. Patient is alert, oriented x 3, equal unlabored respirations, skin warm/dry/pink. Vital Signs: 14:48 BP 102 / 65; Pulse 64; Resp 19 S; Temp 98(O); Pulse Ox 99% on R/A; Weight 88.45 kg (R); ca1 Height 5 ft. 5 in. (165.10 cm); 16:09 BP 118 / 77; Pulse 73; Resp 16; Pulse Ox 100% ; sv 14:48 Body Mass Index 32.45 (88.45 kg, 165.10 cm) ca1 ED Course: 14:38 Patient arrived in ED. as 14:39 Rhiannon Ramirez FNP-C is [facility]. kb 14:39 Colt Gusman MD is Attending Physician. kb 14:47 Triage completed. ca1 14:48 Arm band placed on right wrist. ca1 14:55 Angela Rothman, RN is Primary Nurse. vc 15:10 Patient has correct armband on for positive identification. vc 16:09 Patient did not have IV access during this emergency room visit. sv 16:09 Assist provider with pelvic exam: Set up pelvic tray. Performed by Rhiannon SALAZAR Patient tolerated well. Administered Medications: 16:08 Drug: Macrobid 100 mg Route: PO; sv 16:08 Follow up: Response: Medication administered at discharge. sv Outcome: 15:45 Discharge ordered by . kb 16:09 Discharged to home ambulatory, with family. sv 16:09 Condition: stable 16:09 Discharge instructions given to patient, family, Instructed on discharge instructions, follow up and referral plans. medication usage, increase fluid intake Demonstrated understanding of instructions, follow-up care, medications, Prescriptions given X 1. 16:09 Patient left the ED. sv Signatures: Rhiannon Ramirez FNP-C FNP-Rafaela Davis RN RN Eliana Lara Cheryl RN LOGAN ca1 Angela Rothman RN RN vc Corrections: (The following items were deleted from the chart) 19:03 16:09 No provider procedures requiring assistance completed. sv vc
[2019-09-05] MEDS ORDERED: NITROFURAN MACRO 100 MG CAP PO ONE (16:03)
[2019-09-05 16:06] LABS: Urine Blood NEGATIVE (NEG); Urine Glucose NEGATIVE (NEG); Urine Protein NEGATIVE (NEG); Urine Specific Gravity 1.025 (1.005-1.030)
[2019-09-05 20:00] VITALS: TEMP 98
[2019-09-05 20:02] VITALS: BP 118/77; O2SAT 100
== END 2019-09-05 16:09 | disposition home or self-care (01) ==
LOC: ER 14:36
DX: N39.0 Urinary tract infection, site not specified (principal)
CPT/HCPCS: 81003; 81025; 99283

== ENCOUNTER 2019-10-19 13:41 | Emergency (ER) | payer OTHER ==
--- OUTSIDE RECORDS SUMMARY | 2019-10-19 13:43 | XMS REPORT ---
:1965 [facility] Address [address] [place] [address] Dr. Lopez [address] [place] [id number] Care Team Providers Name Role Phone Unavailable Unavailable Unavailable Problems This patient has no known problems. Allergies, Adverse Reactions, Alerts This patient has no known allergies or adverse reactions. Medications This patient has no known medications.
[2019-10-19 16:05] LABS: Absolute Lymphocytes (CBC) 1.5 K/uL (0.7-4.9); Basophils % 0.7 % (0-1.3); Hematocrit 37.1 % (36.0-45.0); Lymphocytes % 20.5 % (15.3-44.8); MPV 8.8 fL (7.6-11.3); RBC Red Blood Cell Count 4.59 M/uL (3.86-4.86)
[2019-10-19 16:08] LABS: Protime INR 1.1
[2019-10-19 16:23] LABS: ALT/SGPT 21 U/L (12-78); AST/SGOT 20 U/L (15-37); Albumin 3.9 g/dL (3.4-5.0); Alkaline Phosphatase 110 U/L (45-117); BUN Blood Urea Nitrogen 8 mg/dL (7-18); Bicarbonate 28 mmol/L (21-32); Bilirubin Direct 0.1 mg/dL (0-0.2); Bilirubin Total 0.5 mg/dL (0.2-1.0); Glucose Level 84 mg/dL (74-106); NT PRO-BNP 168 pg/mL (<125); Potassium 3.5 mmol/L (3.5-5.1); Protein, Total 8.7 g/dL (6.4-8.2); Sodium Level 140 mmol/L (136-145); Troponin (Emerg Dept Use Only) < 0.02 ng/mL (0.0-0.045)
--- NOTE | 2019-10-19 17:48 | RAD REPORT ---
EXAM DESCRIPTION: CT - Angio Aorta For Dissection - 10/19/2019 4:54 pm CLINICAL HISTORY: chest pain, abdominal pain COMPARISON: CT angio dissection November 2015 TECHNIQUE: Dynamically enhanced 3 mm thick images of the chest, abdomen, and upper pelvis were obtai roger during administration of approximately 150mL Isovue 370 IV contrast. Sagittal and coronal reconst ruction images were generated using MIP and reviewed. Exam utilizes a protocol to evaluate entire cou rse of the aorta. All CT scans are performed using dose optimization technique as appropriate and may include automated exposure control or mA/KV adjustment according to patient size. FINDINGS: Aorta is normal in diameter with no dissection or other acute aortic findings. Reconstruct ion images show no significant findings. Pulmonary arteries are normal as well. No cardiomegaly, pericardial thickening or pericardial effusio n. No mass or infiltrate in the lung parenchyma. No pleural thickening, pleural effusion or pneumothorax . No abnormal mediastinal or hilar mass or lymphadenopathy seen. No chest wall mass or abnormal axillar y lymphadenopathy. Celiac, SMA and renal arteries show no suspicious findings. Solid abdominal viscera and bowel show no significant findings. No mass or abnormal lymphadenopathy. No free air, free fluid or inflammatory stranding. No urinary bladder abnormality. Uterus and ovaries show no suspicious findings. No acute bone finding. IMPRESSION: Negative CT scan of the aorta. No other significant findings on chest, abdomen and upper pelvis examination.
--- NOTE | 2019-10-19 17:52 | ER ---
Nurse's Notes [facility] Name: Mi Ortiz Age: 54 yrs Sex: Female : 1965 Arrival Date: 10/19/2019 Time: 13:45 Bed 18 Private MD: Diagnosis: Acute upper respiratory infection, unspecified Presentation: 10/18 14:09 Chief complaint: Patient states: cough congestion x 3 days, pain in chest and back, dm5 unknown temp at home but reports sometimes being hot and sometimes being cold. Pain in left groin area. Coronavirus screen: The patient has NOT traveled to a country currently being monitored by the [facility] within the last 14 days. Proceed with normal triage procedures. The patient has NOT had contact with any known and/or suspected case of coronavirus. Proceed with normal triage procedures. Ebola Screen: Patient negative for fever greater than or equal to 101.5 degrees Fahrenheit, and additional compatible Ebola Virus Disease symptoms Patient denies exposure to infectious person. Patient denies travel to an Ebola-affected area in the 21 days before illness onset. No symptoms or risks identified at this time. Resp Distress? No respiratory distress is noted at this time. Initial Sepsis Screen: Does the patient meet any 2 criteria? No. Patient's initial sepsis screen is negative. Does the patient have a suspected source of infection? No. Patient's initial sepsis screen is negative. Risk Assessment: Do you want to hurt yourself or someone else? Patient reports no desire to harm self or others. 14:09 Method Of Arrival: Ambulatory dm5 14:09 Acuity: CARMEN 4 dm5 15:09 Onset of symptoms was October 16, 2019. jl7 Triage Assessment: 15:16 General: Appears Behavior is. 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 - Social history:: Smoking status: unknown. Screenin:10 Abuse screen: Denies threats or abuse. Denies injuries from another. Nutritional jl7 screening: No deficits noted. Tuberculosis screening: No symptoms or risk factors identified. 15:51 Fall Risk IV access (20 points). Total King Fall Scale indicates No Risk (0-24 pts). jl7 Assessment: 15:17 General: Appears in no apparent distress. uncomfortable, Behavior is calm, cooperative, jl7 appropriate for age. Pain: Complains of pain in chest Pain currently is 9 out of 10 on a pain scale. Quality of pain is described as hurts from coughing Pain began 2-3 days ago. Neuro: Level of Consciousness is awake, alert, obeys commands, Oriented to person, place, time, situation. Cardiovascular: Heart tones S1 S2 present Patient's skin is warm and dry. Respiratory: Airway is patent Respiratory effort is even, unlabored, Respiratory pattern is regular, symmetrical, Breath sounds are clear bilaterally. Derm: Skin is pink, warm \T\ dry. 15:30 Reassessment: LEYDI Arellano at bedside. jl7 17:00 Reassessment: Patient appears in no apparent distress at this time. No changes from jl7 previously documented assessment. Patient and/or family updated on plan of care and expected duration. Pain level reassessed. Patient is alert, oriented x 3, equal unlabored respirations, skin warm/dry/pink. Vital Signs: 14:09 BP 134 / 96; Pulse 77; Resp 18; Temp 98.7; Pulse Ox 98% on R/A; Weight 87.09 kg (R); dm5 Height 5 ft. 5 in. (165.10 cm); Pain 9/10; 15:10 BP 132 / 76; Pulse 68; Resp 16 S; Pulse Ox 100% on R/A; Pain 9/10; jl7 16:07 BP 120 / 88; Pulse 70; Resp 16; Temp 97.6(TE); Pulse Ox 98% on R/A; mh5 17:30 BP 122 / 71; Pulse 67; Resp 16 S; Pulse Ox 100% on R/A; jl7 14:09 Body Mass Index 31.95 (87.09 kg, 165.10 cm) 5 ED Course: 13:45 Patient arrived in ED. mr 14:13 Triage completed. 5 14:20 Flu and/or RSV swab sent to lab. Strep swab sent to lab. jl7 14:56 Adan Ordonez PA is PHCP. [facility] 14:56 Marciano Olivas MD is Attending Physician. [facility] 15:08 Marion Christensen, RN is Primary Nurse. jl 15:10 Patient has correct armband on for positive identification. Placed in gown. Bed in low jl7 position. Call light in reach. Side rails up X 1. cardiac monitor on. Pulse ox on. NIBP on. Warm blanket given. 15:16 Arm band placed on right wrist. jl7 15:51 Initial lab(s) drawn, by co, sent to lab. Inserted saline lock: 20 gauge in left jl7 forearm, using aseptic technique. Blood collected. 16:52 CT completed. Patient tolerated procedure well. Patient moved back from CT. 17:01 CT Aorta for Dissection In Process Unspecified. EDMS 18:34 No provider procedures requiring assistance completed. IV discontinued, intact, jl7 bleeding controlled, No redness/swelling at site. Pressure dressing applied. Administered Medications: No medications were administered Outcome: 17:51 Discharge ordered by MD. [facility] 18:34 Discharged to home ambulatory. jl 18:34 Condition: stable 18:34 Discharge instructions given to patient, Instructed on discharge instructions, follow up and referral plans. medication usage, Demonstrated understanding of instructions, follow-up care, medications, Prescriptions given X 1. 18:36 Patient left the ED. jl7 Signatures: Dispatcher [employer] EDMS Aleisha Murdock, RN RN dm5 Adan Ordonez PA PA [facility] FlynnWendy mr Israel Snehal [facility] [place] [id number] Marion Christensen, RN RN jl7
--- NOTE | 2019-10-19 17:52 | EDPHYS ---
Physician Documentation [facility] Name: Mi Ortiz Age: 54 yrs Sex: Female : 1965 Arrival Date: 10/19/2019 Time: 13:45 Bed 18 Private MD: ED Physician Marciano Olivas HPI: 10/18 16:35 This 54 yrs old Female presents to ER via Ambulatory with complaints of Cough, jmm Congestion. 16:35 The patient or guardian reports cough. Onset: The symptoms/episode began/occurred jmm gradually, 3 day(s) ago. Modifying factors: The symptoms are alleviated by nothing, the symptoms are aggravated by nothing. This is a 54 year old female with a history of htn that presents to the ED with complaints of flu like symptoms beginning 3 days ago. Cough, sore throat headache, patient states she then developed chest pain which radiates to the back along with left lower abdominal pain which radiates down her left leg. Denies vomiting or diarrhea. . 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 - Social history:: Smoking status: unknown. ROS: 16:35 Back: Negative for injury and pain. jmm 16:35 Constitutional: Positive for body aches, fever. 16:35 Respiratory: Positive for cough. 16:35 Abdomen/GI: Positive for abdominal pain. 16:35 MS/extremity: Positive for pain. 16:35 Neuro: Positive for headache. 16:35 All other systems are negative. Exam: 16:35 Constitutional: This is a well developed, well nourished patient who is awake, alert, jmm and in no acute distress. Head/Face: atraumatic. Eyes: EOMI, no conjunctival erythema appreciated Neck: Trachea midline, Supple 16:35 Respiratory: Normal respirations, no respiratory distress appreciated 16:35 Back: Normal ROM Skin: General appearance color normal MS/ Extremity: Moves all extremities, no obvious deformities appreciated, no edema noted to the lower extremities Neuro: Awake and alert, normal gait Psych: Behavior is normal, Mood is normal, Patient is cooperative and pleasant 16:35 ENT: Posterior pharynx: erythema, that is moderate. 16:35 Abdomen/GI: Inspection: abdomen appears normal, Bowel sounds: normal, Palpation: soft, mild abdominal tenderness, in the left lower quadrant. Vital Signs: 14:09 BP 134 / 96; Pulse 77; Resp 18; Temp 98.7; Pulse Ox 98% on R/A; Weight 87.09 kg (R); dm5 Height 5 ft. 5 in. (165.10 cm); Pain 9/10; 15:10 BP 132 / 76; Pulse 68; Resp 16 S; Pulse Ox 100% on R/A; Pain 9/10; jl7 16:07 BP 120 / 88; Pulse 70; Resp 16; Temp 97.6(TE); Pulse Ox 98% on R/A; 5 17:30 BP 122 / 71; Pulse 67; Resp 16 S; Pulse Ox 100% on R/A; jl7 14:09 Body Mass Index 31.95 (87.09 kg, 165.10 cm) [facility] MDM: 15:00 Patient medically screened. jay 17:50 Data reviewed: vital signs, nurses notes. Counseling: I had a detailed discussion with aletha the patient and/or guardian regarding: the historical points, exam findings, and any diagnostic results supporting the discharge/admit diagnosis, lab results, radiology results, the need for outpatient follow up, to return to the emergency department if symptoms worsen or persist or if there are any questions or concerns that arise at home. ED course: Patient is alert and non toxic in appearance. Imaging studies negative. Patient is advised to follow up with pcp and otherwise given strict return precautions. Patient understood and agrees with the plan of care. . 10/18 14:14 Order name: Flu; Complete Time: 15:08 [facility] 10/18 14:14 Order name: Strep; Complete Time: 15:08 [facility] 10/18 14:52 Order name: Throat Culture [facility] 10/18 15:36 Order name: Basic Metabolic Panel; Complete Time: 16:28 [facility] 10/18 15:36 Order name: CBC with Diff; Complete Time: 16:22 [facility] 10/18 15:36 Order name: LFT's; Complete Time: 16:28 [facility] 10/18 15:36 Order name: Magnesium; Complete Time: 16:28 [facility] 10/18 15:36 Order name: NT PRO-BNP; Complete Time: 16:28 [facility] 10/18 15:36 Order name: PT-INR; Complete Time: 17:10 [facility] 10/18 15:36 Order name: Troponin (emerg Dept Use Only); Complete Time: 16:28 [facility] 10/18 15:36 Order name: EKG; Complete Time: 15:38 [facility] 10/18 15:36 Order name: Cardiac monitoring; Complete Time: 15:38 [facility] 10/18 15:36 Order name: EKG - Nurse/Tech; Complete Time: 15:38 [facility] 10/18 15:37 Order name: CT Aorta for Dissection [facility] 10/18 15:36 Order name: IV Saline Lock; Complete Time: 15:54 [facility] 10/18 15:36 Order name: Labs collected and sent; Complete Time: 15:54 [facility] 10/18 15:36 Order name: O2 Per Protocol; Complete Time: 15:53 [facility] 10/18 15:36 Order name: O2 Sat Monitoring; Complete Time: 15:53 [facility] Administered Medications: No medications were administered Disposition: 10/19/19 17:51 Discharged to Home. Impression: Acute upper respiratory infection, unspecified. - Condition is Stable. - Discharge Instructions: Upper Respiratory Infection, Adult. - Prescriptions for Bromfed DM 2- 30-10 mg/5 mL Oral syrup - take 10 milliliter by ORAL route every 4 hours; 1 bottle. - Medication Reconciliation Form, Thank You Letter, Antibiotic Education, Prescription Opioid Use form. - Follow up: Private Physician; When: 2 - 3 days; Reason: Recheck today's complaints, Continuance of care, Re-evaluation by your physician. Addendum: 10/21/2019 09:22 Co-signature as Attending Physician, Marciano Olivas MD I agree with the assessment and c roque plan of care. Signatures: Dispatcher [employer] Marciano Vallejo MD MD cha Mickail, Joel, PA PA Marion García, RN RN jl7 Corrections: (The following items were deleted from the chart) 10/18 18:36 17:51 10/19/2019 17:51 Discharged to Home. Impression: Acute upper respiratory jl7 infection, unspecified. Condition is Stable. Forms are Medication Reconciliation Form, Thank You Letter, Antibiotic Education, Prescription Opioid Use. Follow up: Private Physician; When: 2 - 3 days; Reason: Recheck today's complaints, Continuance of care, Re-evaluation by your physician. aletha
[2019-10-19 19:09] VITALS: O2SAT 100
[2019-10-19 19:14] VITALS: BP 122/71
[2019-10-19 19:15] VITALS: TEMP 97.6
--- NOTE | 2019-10-21 06:57 | EKG ---
Test Date: 2019-10-19 Test Time: 15:47:37 Manager Market Development: SHRUTI MEASUREMENT RESULTS: Intervals: Rate: 65 [place]: 162 QRSD: 74 QT: 422 QTc: 438 [place]: P: 65 [place]: 162 QRS: 79 T: 81 INTERPRETIVE STATEMENTS: Normal sinus rhythm Normal ECG No previous ECG available for comparison Electronically Signed On 10-21-19 06:55:10 CDT by Dudley Valdez
== END 2019-10-19 18:36 | disposition home or self-care (01) ==
LOC: ER 13:41
DX: J06.9 Acute upper respiratory infection, unspecified (principal); R10.32 Left lower quadrant pain; R07.9 Chest pain, unspecified; I10 Essential (primary) hypertension
CPT/HCPCS: 93005; 87070; 85025; 80048; 36415; 83735; 85610; 80076; 87081; 84484; 83880; 87804 ×2; 71275; 74175; 99285; Q9967

== ENCOUNTER 2019-10-27 | Emergency (ER) | payer OTHER ==
--- OUTSIDE RECORDS SUMMARY | 2019-10-27 14:32 | XMS REPORT ---
:1965 [facility] Address [address] [place] [address] Dr. Lopez [address] [place] [id number] Care Team Providers Name Role Phone Unavailable Unavailable Unavailable Problems This patient has no known problems. Allergies, Adverse Reactions, Alerts This patient has no known allergies or adverse reactions. Medications This patient has no known medications.
--- NOTE | 2019-10-27 15:01 | ER ---
Nurse's Notes [facility] Name: Mi Ortiz Age: 54 yrs Sex: Female : 1965 Arrival Date: 10/27/2019 Time: 14:32 Bed 24 Private MD: Diagnosis: Conjunctival hemorrhage, right eye Presentation: 10/26 14:59 Chief complaint: Patient states: redness to right eye X 3 days, denies injury. iw Coronavirus screen: Patient denies fever greater than 100.4F, cough, shortness of breath, or difficulty breathing. Proceed with normal triage process. Ebola Screen: Patient negative for fever greater than or equal to 101.5 degrees Fahrenheit, and additional compatible Ebola Virus Disease symptoms Patient denies exposure to infectious person. Patient denies travel to an Ebola-affected area in the 21 days before illness onset. No symptoms or risks identified at this time. Initial Sepsis Screen: Does the patient meet any 2 criteria? No. Patient's initial sepsis screen is negative. Does the patient have a suspected source of infection? No. Patient's initial sepsis screen is negative. Risk Assessment: Do you want to hurt yourself or someone else? Patient reports no desire to harm self or others. 14:59 Method Of Arrival: Ambulatory iw 14:59 Acuity: CARMEN 5 iw Historical: - Allergies: 15:02 NKA; iw - Home Meds: 15:02 fluoxetine 20 mg Oral cap 1 cap once daily [Active]; lisinopril-hydrochlorothiazide iw 10-12.5 mg Oral tab 1 tab twice a day [Active]; - PMHx: 15:02 Arthritis; Hypertension; iw - Immunization history:: Adult Immunizations. - Social history:: Smoking status: Patient denies any tobacco usage or history of. Assessment: 15:05 General: Appears Behavior is calm, cooperative. Pain: Denies pain. Neuro: Level of iw Consciousness is awake, alert, obeys commands, Oriented to person, place, time, situation, Moves all extremities. Full function. Cardiovascular: Capillary refill < 3 seconds in bilateral fingers Patient's skin is warm and dry. Respiratory: Respiratory effort is even, unlabored, Respiratory pattern is regular, symmetrical. Derm: Skin is intact. Musculoskeletal: Capillary refill < 3 seconds, in bilateral fingers. Vital Signs: 14:59 BP 110 / 81; Pulse 74; Resp 16; Temp 98.2; Pulse Ox 99% on R/A; Weight 87.09 kg; Height iw 5 ft. 5 in. (165.10 cm); Pain 0/10; 14:59 Body Mass Index 31.95 (87.09 kg, 165.10 cm) iw ED Course: 14:32 Patient arrived in ED. as 14:40 Luis Daniel Waldron FNP-C is [facility]. la1 14:40 Pedro Pablo Ralph MD is Attending Physician. la1 14:48 Mirela Vang, RN is Primary Nurse. iw 15:01 Triage completed. iw 15:03 Arm band placed on. iw Administered Medications: No medications were administered Outcome: 15:01 Discharge ordered by . la1 15:20 Patient left the ED. lt1 Signatures: Eliana Sparks as Mirela Vang, RN RN iw Luis Daniel Waldron FNP-C FNP-Cla1 Joslyn Shultz lt1
--- NOTE | 2019-10-27 15:02 | EDPHYS ---
Physician Documentation [facility] Name: Mi Ortiz Age: 54 yrs Sex: Female : 1965 Arrival Date: 10/27/2019 Time: 14:32 Bed 24 Private MD: ED Physician Pedro Pablo Ralph HPI: 10/26 14:57 This 54 yrs old Female presents to ER via Unassigned with complaints of la1 Redness of Eye. 14:57 The patient is experiencing redness, to the right eye. Onset: The symptoms/episode la1 began/occurred yesterday. Duration: the symptoms are continuous. Associated signs and symptoms: Pertinent negatives: chills, dizziness, ear ache, fever, headache, runny nose. Patient does not utilize any form of vision correction. Severity of symptoms: in the emergency department the symptoms are unchanged. The patient has not experienced similar symptoms in the past. Historical: - Allergies: 15:02 NKA; iw - Home Meds: 15:02 fluoxetine 20 mg Oral cap 1 cap once daily [Active]; lisinopril-hydrochlorothiazide iw 10-12.5 mg Oral tab 1 tab twice a day [Active]; - PMHx: 15:02 Arthritis; Hypertension; iw - Immunization history:: Adult Immunizations. - Social history:: Smoking status: Patient denies any tobacco usage or history of. ROS: 14:58 Constitutional: Negative for fever, chills, and weight loss, ENT: Negative for injury, la1 pain, and discharge, Cardiovascular: Negative for chest pain, palpitations, and edema, Respiratory: + cough Abdomen/GI: Negative for abdominal pain, nausea, vomiting, diarrhea, and constipation, MS/Extremity: Negative for injury and deformity, Skin: Negative for injury, rash, and discoloration. 14:58 Eyes: Positive for redness, of the inner aspect of conjuctiva of right eye. Exam: 14:58 Visual Acuity: Visual acuity is within normal limits. la1 14:58 Constitutional: This is a well developed, well nourished patient who is awake, alert, and in no acute distress. Head/Face: Normocephalic, atraumatic. 14:58 Chest/axilla: Normal chest wall motion. Cardiovascular: Regular rate and rhythm with a normal S1 and S2. Respiratory: No increased work of breathing Skin: Warm, dry with normal turgor. Normal color with no rashes, no lesions, and no evidence of cellulitis. Neuro: Awake and alert, GCS 15, oriented to person, place, time, and situation. 14:58 Eyes: Periorbital structures: appear normal, Pupils: no acute changes, equal, round, and reactive to light and accomodation, Extraocular movements: intact throughout, Conjunctiva: subconjunctival hemorrhage(s), seen in the right eye. Vital Signs: 14:59 BP 110 / 81; Pulse 74; Resp 16; Temp 98.2; Pulse Ox 99% on R/A; Weight 87.09 kg; Height iw 5 ft. 5 in. (165.10 cm); Pain 0/10; 14:59 Body Mass Index 31.95 (87.09 kg, 165.10 cm) iw MDM: 14:53 Patient medically screened. la1 15:00 Data reviewed: vital signs, nurses notes. Data interpreted: Pulse oximetry: on room air la1 is 99 %. Interpretation: normal. Administered Medications: No medications were administered Disposition: 18:12 Co-signature as Attending Physician, Pedro Pablo Ralph MD I agree with the assessment and kdr plan of care. Disposition: 10/27/19 15:01 Discharged to Home. Impression: Conjunctival hemorrhage, right eye. - Condition is Stable. - Discharge Instructions: Subconjunctival Hemorrhage. - Medication Reconciliation Form, Thank You Letter form. - Follow up: Private Physician; When: As needed. - Problem is new. - Symptoms are unchanged. Signatures: Pedro Pablo Ralph MD MD [facility] Mirela Vang RN RN iw Luis Daniel Waldron, STACKER TENDER-C STACKER TENDER-Cla1 Joslyn Shultz [facility] Corrections: (The following items were deleted from the chart) 15:20 15:01 10/27/2019 15:01 Discharged to Home. Impression: Conjunctival hemorrhage, right lt1 eye. Condition is Stable. Forms are Medication Reconciliation Form, Thank You Letter, Antibiotic Education, Prescription Opioid Use. Follow up: Private Physician; When: As needed. Problem is new. Symptoms are unchanged. la1
== END 2019-10-27 15:20 | disposition home or self-care (01) ==
DX: H11.31 Conjunctival hemorrhage, right eye (principal)
CPT/HCPCS: 99281

== ENCOUNTER 2019-12-20 21:40 | Emergency (ER) | payer OTHER ==
--- OUTSIDE RECORDS SUMMARY | 2019-12-20 21:42 | XMS REPORT ---
:1965 Author Organization [facility] t Address [address] [place] [address] Dr. Lopez [address] [place] [address] Care Team Providers Name Role Phone Unavailable Unavailable Unavailable Problems This patient has no known problems. Allergies, Adverse Reactions, Alerts This patient has no known allergies or adverse reactions. Medications This patient has no known medications. Procedures This patient has no known procedures. Results This patient has no known results.
--- NOTE | 2019-12-20 22:34 | ER ---
Nurse's Notes [facility] Name: Mi Ortiz Age: 54 yrs Sex: Female : 1965 Arrival Date: 12/20/2019 Time: 21:41 Bed 7 Private MD: Diagnosis: Dry mouth, unspecified Presentation: 12/19 21:53 Chief complaint: Patient states: having dry mouth and in my throat for one month. rr5 denies pain, cough, fever. Coronavirus screen: Proceed with normal triage. Ebola Screen: Patient negative for fever greater than or equal to 101.5 degrees Fahrenheit, and additional compatible Ebola Virus Disease symptoms Patient denies exposure to infectious person. Patient denies travel to an Ebola-affected area in the 21 days before illness onset. Initial Sepsis Screen: Does the patient meet any 2 criteria? No. Patient's initial sepsis screen is negative. Does the patient have a suspected source of infection? No. Patient's initial sepsis screen is negative. Risk Assessment: Do you want to hurt yourself or someone else? Patient reports no desire to harm self or others. Onset of symptoms was November 2019. 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 - Social history:: Smoking status: unknown Patient/guardian denies using alcohol, street drugs, tobacco products. - Family history:: not pertinent. Screenin:57 Abuse screen: Denies threats or abuse. Denies injuries from another. Nutritional rr5 screening: No deficits noted. Tuberculosis screening: No symptoms or risk factors identified. Fall Risk None identified. Total King Fall Scale indicates No Risk (0-24 pts). 22:08 Patient has been NPO before screening. The patient is alert, able to follow commands. rr5 The patient does not exhibit slurred or garbled speech The patient is not exhibiting difficulty speaking. The patient does not exhibit difficulty understanding words. The patient is able to swallow own secretions with no drooling or need for suction. Patient tolerated one teaspoon of water. No drooling, immediate coughing, gurgling, or clearing of the throat was noted. The patient tolerated 90mL of water. No drooling, immediate coughing, gurgling, or clearing of the throat was noted. The patient passed the bedside swallow screening. Oral medications may be given as ordered. Contact Physician for further diet orders. Provider notified of bedside swallow screening results: Marciano Olivas MD. Assessment: 21:55 General: Appears in no apparent distress. comfortable, Behavior is calm, cooperative, rr5 appropriate for age. 21:55 Pain: Denies pain. Neuro: Level of Consciousness is awake, alert, Oriented to person, rr5 place, time. Cardiovascular: Capillary refill < 3 seconds Patient's skin is warm and dry. Respiratory: Airway is patent Respiratory effort is even, unlabored, Respiratory pattern is regular, symmetrical, Breath sounds are clear bilaterally. GI: No signs and/or symptoms were reported involving the gastrointestinal system. : No signs and/or symptoms were reported regarding the genitourinary system. EENT: Throat is clear with gag reflex present, Reports dry mouth and throat. Derm: Skin is intact, is healthy with good turgor, Skin temperature is warm. Musculoskeletal: Circulation, motion, and sensation intact. Capillary refill < 3 seconds. 22:57 Reassessment: Patient appears in no apparent distress at this time. Patient is alert, rr5 oriented x 3, equal unlabored respirations, skin warm/dry/pink. discharge instruction given and explained without complaints made. Vital Signs: 21:53 BP 126 / 80; Pulse 82; Resp 20; Temp 98.6; Pulse Ox 99% ; Weight 88.9 kg; Height 5 ft. rr5 5 in. (165.10 cm); Pain 0/10; 22:50 BP 121 / 70; Pulse 85; Resp 19; Pulse Ox 99% ; rr5 21:53 Body Mass Index 32.62 (88.90 kg, 165.10 cm) rr5 ED Course: 21:41 Patient arrived in ED. ds1 21:44 Marciano Olivas MD is Attending Physician. [facility] 21:45 Irwin Hodgson, RN is Primary Nurse. rr5 21:55 Triage completed. rr5 21:56 Arm band placed on right wrist. rr5 21:57 Patient has correct armband on for positive identification. Bed in low position. Call rr5 light in reach. 22:25 Neck Soft Tissue XRAY In Process Unspecified. EDID 22:33 Amanda Araiza MD is Referral Physician. [facility] 22:33 Rafaela Hill MD is Referral Physician. jay 22:57 No provider procedures requiring assistance completed. Patient did not have IV access rr5 during this emergency room visit. Administered Medications: No medications were administered Outcome: 22:33 Discharge ordered by . jay 22:57 Discharged to home ambulatory. rr5 22:57 Condition: stable 22:57 Discharge instructions given to patient, Instructed on discharge instructions, follow up and referral plans. medication usage, Demonstrated understanding of instructions, follow-up care, medications, Prescriptions given X 1. 22:58 Patient left the ED. rr5 Signatures: Dispatcher [employer] EDID Marciano Olivas MD MD cha Sanford, Demi ds1 Irwin Hodgson, RN RN rr5
--- NOTE | 2019-12-20 22:34 | EDPHYS ---
Physician Documentation [facility] Name: Mi Ortiz Age: 54 yrs Sex: Female : 1965 Arrival Date: 12/20/2019 Time: 21:41 Bed 7 Private MD: LEATHA Physician Marciano Olivas HPI: 12/19 21:55 This 54 yrs old Female presents to ER via Unassigned with complaints of Sore jay Throat. 21:55 The patient presents with sore throat, dysphagia. The patient describes throat pain as jay dry. Onset: The symptoms/episode began/occurred 1 month(s) ago. Severity of symptoms: At their worst the symptoms were mild, in the emergency department the symptoms are unchanged. Modifying factors: The symptoms are alleviated by fluids, the symptoms are aggravated by foods, swallowing, Patient's oral intake status: good. Associated signs and symptoms: The patient has no apparent associated signs or symptoms. The patient has experienced similar episodes in the past, chronically, for about a month. 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 - Social history:: Smoking status: unknown Patient/guardian denies using alcohol, street drugs, tobacco products. - Family history:: not pertinent. ROS: 21:55 Constitutional: Negative for fever, chills, and weight loss, Eyes: Negative for injury, jay pain, redness, and discharge, Neck: Negative for injury, pain, and swelling, Cardiovascular: Negative for chest pain, palpitations, and edema, Respiratory: Negative for shortness of breath, cough, wheezing, and pleuritic chest pain, Abdomen/GI: Negative for abdominal pain, nausea, vomiting, diarrhea, and constipation, Back: Negative for injury and pain, : Negative for injury, bleeding, discharge, and swelling, MS/Extremity: Negative for injury and deformity, Skin: Negative for injury, rash, and discoloration, Neuro: Negative for headache, weakness, numbness, tingling, and seizure, Psych: Negative for depression, anxiety, suicide ideation, homicidal ideation, and hallucinations, Allergy/Immunology: Negative for hives, rash, and allergies, Endocrine: Negative for neck swelling, polydipsia, polyuria, polyphagia, and marked weight changes, Hematologic/Lymphatic: Negative for swollen nodes, abnormal bleeding, and unusual bruising. 21:55 ENT: Positive for difficulty swallowing, sore throat, mouth feels dry, on lisinopril for years, no med changes. Exam: 21:55 Constitutional: This is a well developed, well nourished patient who is awake, alert, jay and in no acute distress. Head/Face: Normocephalic, atraumatic. Eyes: Pupils equal round and reactive to light, extra-ocular motions intact. Lids and lashes normal. Conjunctiva and sclera are non-icteric and not injected. Cornea within normal limits. Periorbital areas with no swelling, redness, or edema. Neck: Trachea midline, no thyromegaly or masses palpated, and no cervical lymphadenopathy. Supple, full range of motion without nuchal rigidity, or vertebral point tenderness. No Meningismus. Chest/axilla: Normal chest wall appearance and motion. Nontender with no deformity. No lesions are appreciated. Cardiovascular: Regular rate and rhythm with a normal S1 and S2. No gallops, murmurs, or rubs. Normal PMI, no JVD. No pulse deficits. Respiratory: Lungs have equal breath sounds bilaterally, clear to auscultation and percussion. No rales, rhonchi or wheezes noted. No increased work of breathing, no retractions or nasal flaring. Abdomen/GI: Soft, non-tender, with normal bowel sounds. No distension or tympany. No guarding or rebound. No evidence of tenderness throughout. Back: No spinal tenderness. No costovertebral tenderness. Full range of motion. Skin: Warm, dry with normal turgor. Normal color with no rashes, no lesions, and no evidence of cellulitis. MS/ Extremity: Pulses equal, no cyanosis. Neurovascular intact. Full, normal range of motion. Neuro: Awake and alert, GCS 15, oriented to person, place, time, and situation. Cranial nerves II-XII grossly intact. Motor strength 5/5 in all extremities. Sensory grossly intact. Cerebellar exam normal. Normal gait. Psych: Awake, alert, with orientation to person, place and time. Behavior, mood, and affect are within normal limits. 21:59 ENT: Posterior pharynx: no acute changes, Airway: normal, no evidence of obstruction, jay Tonsils: are normal in appearance, Uvula: normal, midline, non-edematous, no erythema, peritonsillar mass, is not appreciated, pooling of secretions, is not appreciated, Dental exam: dental caries, that is mild, gum swelling, not appreciated, malocclusion, is not appreciated, missing teeth, diffusely. Vital Signs: 21:53 BP 126 / 80; Pulse 82; Resp 20; Temp 98.6; Pulse Ox 99% ; Weight 88.9 kg; Height 5 ft. rr5 5 in. (165.10 cm); Pain 0/10; 22:50 BP 121 / 70; Pulse 85; Resp 19; Pulse Ox 99% ; rr5 21:53 Body Mass Index 32.62 (88.90 kg, 165.10 cm) rr5 MDM: 21:46 Patient medically screened. [facility] 22:00 Data reviewed: vital signs, nurses notes, radiologic studies, plain films. [facility] 22:00 Differential diagnosis: group A strep tonsillitis, pharyngitis, retropharyngeal abcess jay tonsillitis, upper respiratory infection, uvulitis. Data interpreted: nuclear monitoring technician: not applicable for this patient encounter. Pulse oximetry: on room air is 99 %. Counseling: I had a detailed discussion with the patient and/or guardian regarding: the historical points, exam findings, and any diagnostic results supporting the discharge/admit diagnosis, the need for outpatient follow up, for definitive care, an ENT specialist, a manager infrastructure. 22:09 ED course: no new meds, lisinipril/ hctz/ prozac.... soft tissue neck neg, will follow [facility] up , return if worse, Biotene perscribed otc. 22:32 ED course: soft tissue of the neck , negative. [facility] 12/19 21:51 Order name: Neck Soft Tissue XRAY [facility] 12/19 21:51 Order name: PO challenge; Complete Time: 22:07 jay Administered Medications: No medications were administered Disposition: 12/20/19 22:33 Discharged to Home. Impression: Dry mouth, unspecified. - Condition is Stable. - Discharge Instructions: Dysphagia. - Medication Reconciliation Form, Thank You Letter, Antibiotic Education, Prescription Opioid Use form. - Follow up: Private Physician; When: 2 - 3 days; Reason: Recheck today's complaints, Continuance of care, Re-evaluation by your physician. Follow up: Amanda Araiza; When: 2 - 3 days; Reason: Recheck today's complaints, Re-evaluation by your physician. Follow up: Rafaela Hill; When: 2 - 3 days; Reason: Recheck today's complaints, Re-evaluation by your physician. - Problem is new. - Symptoms have improved. Signatures: Dispatcher [employer] EDMarciano Kevin MD MD cha Roque, Raymond RN RN rr5 Corrections: (The following items were deleted from the chart) 22:58 22:33 12/20/2019 22:33 Discharged to Home. Impression: Dry mouth, unspecified. rr5 Condition is Stable. Discharge Instructions: Dysphagia. Forms are Medication Reconciliation Form, Thank You Letter, Antibiotic Education, Prescription Opioid Use. Follow up: Private Physician; When: 2 - 3 days; Reason: Recheck today's complaints, Continuance of care, Re-evaluation by your physician. Follow up: Amanda Araiza; When: 2 - 3 days; Reason: Recheck today's complaints, Re-evaluation by your physician. Follow up: Rafaela Hill; When: 2 - 3 days; Reason: Recheck today's complaints, Re-evaluation by your physician. Problem is new. Symptoms have improved. jay
[2019-12-20 23:04] VITALS: TEMP 98.6; O2SAT 99
[2019-12-20 23:05] VITALS: BP 121/70
--- NOTE | 2019-12-21 08:53 | RAD REPORT ---
EXAM DESCRIPTION: RAD - Neck Soft Tissue - 12/20/2019 10:26 pm CLINICAL HISTORY: Sore throat;Pain COMPARISON: None. TECHNIQUE: Single lateral soft tissue neck exam performed. FINDINGS: No prevertebral soft tissue thickening. No foreign body or abnormal air density. Epiglotti s is prominent but not clearly outside of range of normal. Tonsillar and adenoid tissue within normal limits as well. No acute disc or bone abnormality of the cervical spine. Lucent striations in the n dominique soft tissues on the AP projection may reflect external artifact. These are not as lucent as the a ir in the trachea. Soft tissue neck area is not suspected. IMPRESSION: Soft tissue neck examination shows no significant finding. If symptoms persist and there is concern for cervical soft tissue abnormality, follow-up contrast CT neck examination could be performed.
== END 2019-12-20 22:58 | disposition home or self-care (01) ==
LOC: ER 21:40
DX: R68.2 Dry mouth, unspecified (principal); I10 Essential (primary) hypertension
CPT/HCPCS: 70360; 99283

== ENCOUNTER 2020-01-27 23:16 | Emergency (ER) | payer OTHER ==
--- OUTSIDE RECORDS SUMMARY | 2020-01-27 23:18 | XMS REPORT | Continuity of Care Document ---
:1965 Author Organization [facility] t Address [address] [place] [address] Care Team Providers Name Role Phone Lesvia Aparicio Attending Clinician Problems This patient has no known problems. Allergies, Adverse Reactions, Alerts This patient has no known allergies or adverse reactions. Medications This patient has no known medications. Procedures This patient has no known procedures. Encounters Start End Encounter Admission Attending Care Care Encounter Source Date/Time Date/Time Type Type Clinicians Facility Department ID 2020-01-27 2020-01-27 Office ANABELLA Denson [phone] [id number] 10:43:44 11:39:23 Visit Lesvia COE [id number] [place] [id number] Results This patient has no known results.
--- OUTSIDE RECORDS SUMMARY | 2020-01-27 23:18 | XMS REPORT | Summary of Care ---
:1965 Author Organization [facility] Address [address] [place] [address] Care Team Providers Name Role Phone Pcp, Patient Does Not Have A Primary Care Provider +1-000-00 0-0000 Reason for Referral (Routine) Status Reason Specialty Diagnoses / Referred By Referred To Procedures Contact Contact New Request Speech-Language Diagnoses Dysphagia, oropharyngeal phase Jarett, Pathologist Procedures CONSULT SPEECH VARGAS [address] [place] [address] (Routine) Status Reason Specialty Diagnoses / Referred By Referred To Procedures Contact Contact New Request Diagnostic Diagnoses Dysphagia, oropharyngeal phase Lesvia Denson Radiology Procedures MOD BARIUM SWALLOW, (ARIS JOHNSON [address] [place] [address] [address] [place] [address] Reason for Visit Reason Comments Establish Care Encounter Details Date Type Department Care Team Description 01/27/2020 Office Visit [facility] Lesvia Denson, Dysphagia , oropharyngeal phase (Primary Dx); [facility] [address] [facility] [address] [place] [place] [address] [address] [place], [place] [phone] [phone] Allergies No Known Allergiesdocumented as of this encounter (statuses as of 01/27/2020) Medications Medication Sig Dispensed Refills Start Date End Date Status hydroCHLOROthiazide 25 mg Take 1 tablet 30 tablet 0 06/13/2017 Active tablet by mouth every morning. ibuprofen 800 mg tablet Take 1 tablet 30 tablet 0 05/03/2018 Active by mouth every 8 (eight) hours. diazePAM (VALIUM) 5 mg Take 1 tablet 20 tablet 0 05/03/2018 Active tablet by mouth 2 (two) times daily as needed for Muscle Spasms. traMADOL (ULTRAM) 50 mg Take 1 tablet 20 tablet 0 10/14/2018 Active tabletIndications: Dental by mouth abscess, Uterine prolapse every 6 (six) hours as needed for Pain (scale 7-10). clindamycin 300 mg Take 1 21 capsule 0 10/14/2018 Active capsuleIndications: Dental capsule by abscess, Uterine prolapse mouth 3 (three) times daily. pantoprazole 40 mg EC Take 1 tablet 30 tablet 2 01/27/2020 Active tabletIndications: by mouth Dysphagia, oropharyngeal daily. phase documented as of this encounter (statuses as of 01/27/2020) Active Problems Problem Noted Date BMI 29.0-29.9,adult 06/16/2017 Prolapse of female bladder, acquired 06/16/2017 Prolapse of anterior vaginal wall 03/15/2017 Obesity 05/12/2016 Encounter for screening breast examination 05/12/2016 Depo-Provera contraceptive status 06/26/2015 Essential hypertension, benign 06/26/2015 Contraceptive management 06/19/2015 Acute cystitis without hematuria 06/17/2015 documented as of this encounter (statuses as of 01/27/2020) Resolved Problems Problem Noted Date Resolved Date Cervicitis 06/26/2015 09/14/2015 Vaginal bleeding, abnormal 11/24/2013 06/19/2015 Elevated blood pressure reading without diagnosis of 014 06/26/2015 hypertension documented as of this encounter (statuses as of 01/27/2020) Immunizations Name Administration Dates Next Due TDAP (ADACEL) VACCINE 02/04/2015 documented as of this encounter Social History Tobacco Use Types Packs/Day Years Used Date Never Smoker Smokeless Tobacco: Never Used Alcohol Use Drinks/Week oz/Week Comments No 0 Standard drinks or equivalent 0.0 Sex Assigned at Date Recorded Not on file Job Start Date Occupation Industry Not on file Not on file Not on file Travel History Travel Start Travel End No recent travel history available. COVID-19 Exposure Response Date Recorded In the last month, have you been in contact with No / Unsure 01/27/2020 10:33 AM CDT someone who was confirmed or suspected to have Coronavirus / COVID-19? documented as of this encounter Last Filed Vital Signs Vital Sign Reading Time Taken Comments Blood Pressure 126/89 01/27/2020 10:55 AM CDT Pulse 83 01/27/2020 10:55 AM CDT Temperature 36.3 C (97.4 F) 01/27/2020 10:55 AM CDT Respiratory Rate - - Oxygen Saturation - - Inhaled Oxygen Concentration - - Weight 87.9 kg (193 lb 12.8 oz) 01/27/2020 10:55 AM CDT Height 165.1 cm (5' 5") 01/27/2020 10:55 AM CDT Body Mass Index 32.25 01/27/2020 10:55 AM CDT documented in this encounter Progress Notes Lesvia Denson, ARIS - 01/27/2020 10:30 AM CDT GI Clinic Note Date: 01/27/2020 11:15 Chief Complaint: dysphagia History of Present Illness: Mi Escoto is a 54 year old female with PHx of HTN presents in the clinic for dysphagia. She reports that >6 months ago her throat feels dry and sore and has difficulty swallowing and feels like food gets stuck in back of throat. She thinks the "dryness" causes her to have increased coughing. So she has to swallow multiple times to get the foods down. This does not occur with liquids. She was initially told she had allergies but did not take any allergy medications. She also reports a"little white ball" in back of throat that she was given antibiotics for this, denies any pain from this and it comes and goes. Denies heartburn, reflux, nausea, vomiting, taking NSAIDs, drinking etoh, smoking. She is taking weight loss pills and has lost 10 lbs in the last 3 months. Her smokes cigarettes and she reports the smoke and smell bothers her a lot. She is unsure if this worsens herswallowing or not. She has sinus congestions and reports having to clear her throat often. At outside facility she had an ultrasound done and was told she has fatty liver. She is currently trying to lose weight with phentermine. Past Medical History: Past Medical History: Diagnosis Date Anemia not sure if she still has anemia has not followe up Blood transfusion, without reported diagnosis 10/30/2013 Cervicitis 06/26/2015 resolved Essential hypertension, benign 06/26/2015 ongoing, on medication Past Surgical History: She has a past surgical history that includes umbiliculectomy. Social History: Her reports that she has never smoked. She has never used smokeless tobacco. She reports that she does not drink alcohol or use drugs., , Family History: She family history includes Asthma in her mother; Breast Cancer in her mother. Allergies: has No Known Allergies. Medications: Scheduled Medications: Current Outpatient Medications Medication Sig Dispense Refill traMADOL (ULTRAM) 50 mg tablet Take 1 tablet by mouth every 6 (six) hours as needed for Pain (scale 7-10). 20 tablet 0 diazePAM (VALIUM) 5 mg tablet Take 1 tablet by mouth 2 (two) times daily as needed for Muscle Spasms. 20 tablet 0 ibuprofen 800 mg tablet Take 1 tablet by mouth every 8 (eight) hours. 30 tablet 0 hydroCHLOROthiazide 25 mg tablet Take 1 tablet by mouth every morning. 30 tablet 0 clindamycin 300 mg capsule Take 1 capsule by mouth 3 (three) times daily. 21 capsule 0 No current facility-administered medications for this visit. Review of Systems: General: No recent fever or chills, no recent weight loss nor weight gain CVS: No chest pain, palpitations Resp: No dyspnea, asthma GI: No abdominal pain, nausea, vomiting, diarrhea, constipation, melena, hematochezia, hematemesis Neuro: No seizures, nor stroke Endo: No diabetes nor thyroid disease Heme: No clotting or bleeding disorders Skin: No rash, suspicious skin lesions, skin cancer nor skin ulcers Psych: No depression, anxiety Physical Exam: Temp: [36.3 C (97.4 F)] Pulse: [83] BP: (126)/(89) @LASTSAO2(3)@ General: no acute distress, ambul atory without assistance Head: normocephalic, no hair loss Eyes: no pallor/erythema/icterus Mouth: tongue wnl, no ulcers/lesions in mouth Neck: thyroid wnl, no LAD Abdomen: soft, non-distended, non-tender, no organomegaly/mass/ascites Extremities: no oakes erythema/rashes Skin: no jaundice/rash/pallor Psych: good affect with clear mentation, no asterixis Labs: CBC WBC x10^3 (/uL) Date Value 10/08/2014 5.2 WBC (10*3/uL) Date Value 06/13/2017 6.70 RBC x10^6 (/uL) Date Value 10/08/2014 4.86 RBC (10*6/uL) Date Value 06/13/2017 4.57 PLT x10^3 (/uL) Date Value 10/08/2014 333 PLT (10*3/uL) Date Value 06/13/2017 269 HGB Date Value 06/13/2017 11.7 g/dL (L) 10/08/2014 9.9 G/DL (L) HCT (%) Date Value 06/13/2017 36.6 (L) 10/08/2014 33.5 (L) CMP NA (mmol/L) Date Value 06/13/2017 142 K Date Value 06/13/2017 4.2 mmol/L 12/10/2014 4.3 MMOL/L CALCIUM Date Value 06/13/2017 9.0 mg/dL 12/10/2014 9.1 MG/DL CL (mmol/L) Date Value 06/13/2017 108 BUN (mg/dL) Date Value 06/13/2017 8 CREATININE Date Value 06/13/2017 0.60 mg/dL 12/10/2014 0.71 MG/DL GLUCOSE (mg/dL) Date Value 06/13/2017 99 CO2 TOTAL (mmol/L) Date Value 06/13/2017 24 ALBUMIN (g/dL) Date Value 06/13/2017 4.5 T PROTEIN (g/dL) Date Value 06/13/2017 8.1 TOTAL BILI (mg/dL) Date Value 06/13/2017 0.6 ALT(SGPT) (U/L) Date Value 06/13/2017 30 AST(SGOT) (U/L) Date Value 06/13/2017 31 ALK PHOS (U/L) Date Value 06/13/2017 116 Radiology: Endoscopy: Assessment and Plan: Dysphagia - experiencing dysphagia to solids and liquids - start pantoprazole 40mg daily - modified barium swallow - consider EGD - consider ENT referral as patient complaints of sinus congestion and frequent throat clearing Fatty liver - request ultrasound results from outside facility - recommended to avoid alcohol and continue weight loss with diet and exercise Follow-up in 4 weeks Signed: Lesvia Denson, Nurse Practitioner Department of Internal Medicine - Gastroenterology and Hepatology documented in this encounter Plan of Treatment Date Type Specialty Care Team Description 02/24/2020 Office Visit Gastroenterology Lesvia Denson ACNP [address] [facility] [address] [place] [address] [phone] Name Type Priority Associated Diagnoses Order S chedule MOD BARIUM SWALLOW, IMAGING Routine Dysphagia, oropharyng eal Expected: 01/27/2020, (COOKIE) phase Expires: 2020 Health Maintenance Due Date Last Done Comments Breast Cancer Screening 03/09/2016 03/09/2015, 03/11/2014, (MAMMOGRAM) 11/12/2012, Additional history exists PAP SMEAR 12/27/2016 12/27/2013, 04/28/2010, 04/09/2009, Additional history exists COLONOSCOPY 2017 Zoster Recombinant Vaccine 2017 (SHINGRIX) (1 of 2) INFLUENZA VACCINE (Season 04/07/2020 Ended) Depression Screening 01/26/2021 01/27/2020 DTaP,Tdap,and Td Vaccines 02/04/2025 02/04/2015 (2 - Td) PNEUMOCOCCAL 0-64 YEARS Aged Out No longe r eligible COMBINED SERIES based on patient 's age to complete this topic documented as of this encounter Results Not on filedocumented in this encounter Visit Diagnoses Diagnosis Dysphagia, oropharyngeal phase - Primary Fatty liver Other chronic nonalcoholic liver disease documented in this encounter documented as of this encounter Advance Directives Type Date Recorded Patient Chemistry Teacher Explanati on Advance Directives and Living 03/11/2015 2:54 PM Will Power of Docent Coordinator Name Relationship Healthcare Agent Communication Relationship Dre Vazquez Spouse Primary healthcare agent Neshaashok Callahan Child First [facility] [phone] agent (Mobile)
--- OUTSIDE RECORDS SUMMARY | 2020-01-27 23:18 | XMS REPORT | Summary of Care ---
:1965 Author Organization [facility] - [facility] Address [address] [place] [id number] Care Team Providers Name Role Phone Pcp, Patient Does Not Have A Primary Care Provider +[id number] 0-0000 Encounter Details Date Type Department Care Team Description 01/27/2020 Orders Only [facility] Doctor Unassigned, No [address] [facility] [place] [address] [address] [place] [address] Allergies No Known Allergiesdocumented as of this [...] Uterine prolapse mouth 3 (three) times daily. documented as of this encounter (statuses as [...] of this encounter Last Filed Vital Signs Not on filedocumented in this encounter Plan of Treatment Health Maintenance Due Date Last Done Comments Depression Screening 1979 Breast Cancer Screening 03/09/2016 03/09/2015, 03/11/2014, (MAMMOGRAM) 11/12/2012, Additional history exists PAP SMEAR 12/27/2016 12/27/2013, 04/28/2010, 04/09/2009, Additional history exists COLONOSCOPY 2017 Zoster Recombinant Vaccine 2017 (SHINGRIX) (1 of 2) INFLUENZA VACCINE (Season 04/07/2020 Ended) DTaP,Tdap,and Td Vaccines 02/04/2025 02/04/2015 (2 - Td) PNEUMOCOCCAL 0-64 YEARS Aged Out No longe r eligible COMBINED SERIES based on patient 's age to complete this topic documented as of this encounter Procedures Procedure Name Priority Date/Time Associated Diagnosis Comme nts ASSIGNMENT OF BENEFITS Routine 01/27/2020 10:36 AM CDT documented in this encounter Results Not on filedocumented in this encounter Insurance Payer Benefit Plan / Group Subscriber ID Effective Dates Phone Address Type REYNA[employer]O [employer] T[employer] CARE [id number] 2014-Present PPO [employer] [facility] CARE [id number] 2019-Present PPO documented as of this encounter Advance Directives Type Date Recorded Patient [employer] Sprayer Explanati on Advance Directives and Living 03/11/2015 2:54 PM Will Power of Electronic Science Teacher Name Relationship Healthcare Agent Communication Relationship Dre Vazquez Spouse Primary healthcare agent Nesha Callahan Child First [facility] healthcare agent (Mobile)
--- OUTSIDE RECORDS SUMMARY | 2020-01-27 23:19 | XMS REPORT | Summary of Care ---
:1965 Author Organization [facility] Address [address] [place] [address] Care Team Providers Name Role Phone Pcp, Patient Does Not Have A Primary Care Provider +[id number] 0-0000 Reason for Referral (Routine) Status Reason Specialty Diagnoses / Referred By Referred To Procedures Contact Contact New Request Speech-Language Diagnoses Dysphagia, oropharyngeal phase Jarett, Pathologist Procedures CONSULT SPEECH VARGAS [address] [place] [address] (Routine) Status Reason Specialty Diagnoses / Referred By Referred To Procedures Contact Contact New Request Diagnostic Diagnoses Dysphagia, oropharyngeal phase Lesvia Denson Radiology Procedures MOD BARIUM SWALLOW, (ARIS JOHNSON [address] [place] [address] [address] [place] [address] Reason for Visit Reason Comments Establish Care Encounter Details Date Type Department Care Team Description 01/27/2020 Office Visit [facility] Lesvia Denson, Dysphagia , oropharyngeal phase (Primary Dx); Gastroenterology-[facility] Fatty liver ves[facility] [address] [facility] [address] [place] [place] [address], 6[address] [address] [place], [place] [phone] [id number] [phone] Allergies No Known Allergiesdocumented as of this [...] Office Visit Gastroenterology Lesvia Denson ACNP [address] [facility] [address] [place] [address] [phone] Name Type Priority Associated Diagnoses Order S [...] encounter Advance Directives Type Date Recorded Patient Measurement Coordinator Explanati on Advance Directives and Living 03/11/2015 2:54 PM Will Power of Distribution Sales Manager Name Relationship Healthcare Agent Communication Relationship Dre Vazquez Spouse Primary healthcare agent Neshaashok Callahan Child [facility] agent (Mobile)
[2020-01-28] MEDS ORDERED: ONDANSETRON 4 MG/2 ML VIAL ONE (01:29)
[2020-01-28] MEDS ORDERED: NA CHLORIDE 0.9% 1,000 ML ONE (01:29)
[2020-01-28] MEDS ORDERED: FAMOTIDINE 20 MG/2 ML VIAL IV ONE (01:29)
[2020-01-28] MEDS ORDERED: MORPHINE 4 MG/ML SYR ONE (01:29)
[2020-01-28 02:08] LABS: Absolute Lymphocytes (CBC) 0.9 K/uL (0.7-4.9); Basophils % 0.3 % (0-1.3); Hematocrit 39.5 % (36.0-45.0); Lymphocytes % 9.4 % (15.3-44.8); MPV 8.6 fL (7.6-11.3); RBC Red Blood Cell Count 4.78 M/uL (3.86-4.86)
[2020-01-28 02:09] LABS: Albumin 4.1 g/dL (3.4-5.0); Bilirubin Direct 0.1 mg/dL (0-0.2); Bilirubin Total 0.6 mg/dL (0.2-1.0); Potassium 3.3 mmol/L (3.5-5.1); Protein, Total 8.8 g/dL (6.4-8.2)
[2020-01-28 03:06] LABS: Urine Blood NEGATIVE (NEG); Urine Glucose NEGATIVE (NEG); Urine Protein NEGATIVE (NEG); Urine Specific Gravity >1.030 (1.005-1.030)
--- NOTE | 2020-01-28 04:45 | EDPHYS ---
Physician Documentation [facility] Name: Mi Ortiz Age: 54 yrs Sex: Female : 1965 Arrival Date: 01/27/2020 Time: 23:18 Bed 14 Private MD: LEATHA Physician Robert Hargrove HPI: 01/27 01:11 This 54 yrs old Female presents to ER via Ambulatory with complaints of mh7 Vomiting. 01:11 The patient presents to the emergency department with nausea, that is moderate, mh7 vomiting, that is intermittent, 2 times since the onset of symptoms, diarrhea, that is intermittent, 7 times since the onset of symptoms, abdominal pain, of the epigastric area, described as intermittent, vague,\E\ waxing and waning. Onset: The symptoms/episode began/occurred last night. Possible causes: bad food exposure, chicken. The symptoms are aggravated by nothing. The symptoms are alleviated by nothing. Associated signs and symptoms: Pertinent positives: abdominal pain, diarrhea, nausea, vomiting, Pertinent negatives: anorexia, belching, constipation, dysuria, fever, flatulence, GI bleeding, hematuria, vaginal discharge. Severity of symptoms: At their worst the symptoms were moderate today, in the emergency department the symptoms have improved moderately. Historical: - Allergies: 01/26 23:48 NKA; sg - PMHx: 23:48 Arthritis; Hypertension; sg - PSHx: 23:48 umbilical surgery; sg - Immunization history:: Adult Immunizations up to date. - Social history:: Smoking status: Patient denies any tobacco usage or history of. ROS: 01/27 01:11 Constitutional: Negative for fever, chills, and weight loss, Eyes: Negative for injury, mh7 pain, redness, and discharge, ENT: Negative for injury, pain, and discharge, Neck: Negative for injury, pain, and swelling, Cardiovascular: Negative for chest pain, palpitations, and edema, Respiratory: Negative for shortness of breath, cough, wheezing, and pleuritic chest pain, Back: Negative for injury and pain, : Negative for injury, bleeding, discharge, and swelling, MS/Extremity: Negative for injury and deformity, Skin: Negative for injury, rash, and discoloration, Neuro: Negative for headache, weakness, numbness, tingling, and seizure, Psych: Negative for depression, anxiety, suicide ideation, homicidal ideation, and hallucinations, Allergy/Immunology: Negative for hives, rash, and allergies, Endocrine: Negative for neck swelling, polydipsia, polyuria, polyphagia, and marked weight changes, Hematologic/Lymphatic: Negative for swollen nodes, abnormal bleeding, and unusual bruising. Exam: 01:11 Constitutional: This is a well developed, well nourished patient who is awake, alert, mh7 and in no acute distress. Head/Face: Normocephalic, atraumatic. Neck: Trachea midline, no thyromegaly or masses palpated, and no cervical lymphadenopathy. Supple, full range of motion without nuchal rigidity, or vertebral point tenderness. No Meningismus. Chest/axilla: Normal chest wall appearance and motion. Nontender with no deformity. No lesions are appreciated. Cardiovascular: Regular rate and rhythm with a normal S1 and S2. No gallops, murmurs, or rubs. Normal PMI, no JVD. No pulse deficits. 01:11 Back: No spinal tenderness. No costovertebral tenderness. Full range of motion. Skin: Warm, dry with normal turgor. Normal color with no rashes, no lesions, and no evidence of cellulitis. MS/ Extremity: Pulses equal, no cyanosis. Neurovascular intact. Full, normal range of motion. Neuro: Awake and alert, GCS 15, oriented to person, place, time, and situation. Cranial nerves II-XII grossly intact. Motor strength 5/5 in all extremities. Sensory grossly intact. Cerebellar exam normal. Normal gait. Psych: Awake, alert, with orientation to person, place and time. Behavior, mood, and affect are within normal limits. 01:11 Abdomen/GI: Inspection: abdomen appears normal, Bowel sounds: normal, in all quadrants, Palpation: moderate abdominal tenderness, in the epigastric area, Rectal exam: the exam is deferred, because of patient request, Indicators: McBurney's point is not tender, Johnson's sign is negative, Rovsing's sign is negative, Obturator sign is negative, Psoas sign is negative, Liver: no appreciated palpable abnormalities, Hernia: not appreciated. Vital Signs: 00:00 BP 126 / 84; Pulse 66; Resp 18; Temp 98.2(O); Pulse Ox 98% on R/A; Weight 87.54 kg (R); jb4 Height 5 ft. 5 in. (165.10 cm) (R); Pain 7/10; 01:30 BP 114 / 73; Pulse 80; Resp 16; Pulse Ox 100% on R/A; jb4 02:45 BP 119 / 78; Pulse 80; Resp 16; Pulse Ox 98% on R/A; jb4 04:30 BP 106 / 69; Pulse 76; Resp 16; Pulse Ox 99% on R/A; jb4 00:00 Body Mass Index 32.12 (87.54 kg, 165.10 cm) 4 MDM: 00:52 Patient medically screened. [facility] 04:41 Differential diagnosis: Nonspecific abd pain, gastritis, cholecystitis, pancreatitis, mh7 appendicitis, diverticulitis, viral gastroenteritis, gastroenteritis. Data reviewed: vital signs, nurses notes, lab test result(s), CBC, electrolytes, urinalysis, radiologic studies, CT scan. Data interpreted: Pulse oximetry: on room air is 98 %. Interpretation: normal. Counseling: I had a detailed discussion with the patient and/or guardian regarding: the historical points, exam findings, and any diagnostic results supporting the discharge/admit diagnosis, lab results, radiology results, the need for outpatient follow up, to return to the emergency department if symptoms worsen or persist or if there are any questions or concerns that arise at home. Response to treatment: the patient's symptoms have resolved after treatment, the patient's blood pressure is in an acceptable range, mental status has returned to baseline, the patient no longer shows bradycardia, the patient is not short of breath, the patient is not tachycardic, the patient's pain is gone, the patient's temperature has normalized. 01/27 00:54 Order name: Basic Metabolic Panel; Complete Time: 02:48 [facility] 01/27 00:54 Order name: CBC with Diff; Complete Time: 02:48 [facility] 01/27 00:54 Order name: Hepatic Function; Complete Time: 02:48 [facility] 01/27 00:54 Order name: Lipase; Complete Time: 02:48 [facility] 01/27 01:45 Order name: CT Abd/Pelvis - IV Contrast Only [facility] 01/27 02:06 Order name: Urine Dipstick--Ancillary (enter results); Complete Time: 03:21 [facility] 01/27 00:54 Order name: IV Saline Lock; Complete Time: 01:38 01/27 00:54 Order name: Labs collected and sent; Complete Time: :38 01/27 00:54 Order name: Urine Dipstick-Ancillary (obtain specimen); Complete Time: 01:57 01/27 01:14 Order name: EKG - Nurse/Tech; Complete Time: 02:15 7 Administered Medications: 01:37 Drug: Pepcid 20 mg Route: IVP; Site: left antecubital; ea 02:00 Follow up: Response: No adverse reaction 4 01:37 Drug: NS 0.9% 1000 ml Route: IV; Rate: 1000 ml; Site: left antecubital; ea 02:30 Follow up: Response: No adverse reaction; IV Status: Completed infusion 4 :38 Drug: morphine 4 mg Route: IVP; Site: left antecubital; ea 02:00 Follow up: Response: No adverse reaction; Pain is decreased; RASS: Alert and Calm (0) [facility] :38 Drug: Zofran (Ondansetron) 4 mg Route: IVP; Site: left antecubital; ea 02:00 Follow up: Response: No adverse reaction; Nausea is decreased [facility] Disposition: 01/28/20 04:45 Discharged to Home. Impression: Gastroenteritis. - Condition is Stable. - Discharge Instructions: Salmonella Gastroenteritis, Adult. - Prescriptions for Zofran ODT 4 mg Oral tablet,disintegrating - place 1 tablet by TRANSLINGUAL route every 8 hours; 10 tablet. Bentyl 20 mg Oral Tablet - take 1 tablet by ORAL route every 6 hours As needed; 20 tablet. Pepcid 20 mg Oral Tablet - take 1 tablet by ORAL route every 12 hours for 5 days; 10 tablet. Bactrim DS 800- 160 mg Oral Tablet - take 1 tablet by ORAL route every 12 hours for 7 days; 14 tablet. - Work release form, Medication Reconciliation Form, Thank You Letter, Antibiotic Education, Prescription Opioid Use form. - Follow up: Private Physician; When: 1 - 2 days; Reason: Worsening of condition, Recheck today's complaints, Re-evaluation by your physician. - Problem is new. - Symptoms have improved. Signatures: Dispatcher [employer] EDTiago Pettit RN RN sg Dominique Madden, AMMONIA OPERATOR-C AMMONIA OPERATOR-Csnw Ghanshyam Brown, RN RN jb4 Jo Ann Patel, RN RN oRbert Brady MD MD mh7 Corrections: (The following items were deleted from the chart) 05:11 04:45 01/28/2020 04:45 Discharged to Home. Impression: Gastroenteritis. Condition is jb4 Stable. Forms are Medication Reconciliation Form, Thank You Letter, Antibiotic Education, Prescription Opioid Use. Follow up: Private Physician; When: 1 - 2 days; Reason: Worsening of condition, Recheck today's complaints, Re-evaluation by your physician. Problem is new. Symptoms have improved. mh7
--- NOTE | 2020-01-28 04:45 | ER ---
Nurse's Notes [facility] Name: Mi Ortiz Age: 54 yrs Sex: Female : 1965 Arrival Date: 01/27/2020 Time: 23:18 Bed 14 Private MD: Diagnosis: Gastroenteritis Presentation: 01/26 23:49 Chief complaint: Patient states: I have had diarrhea,watery stool and vomiting that sg began this morning, worsening this evening, feeling weak now, denies chills/fever at this time. Coronavirus screen: Proceed with normal triage. Ebola Screen: Patient negative for fever greater than or equal to 101.5 degrees Fahrenheit, and additional compatible Ebola Virus Disease symptoms Patient denies exposure to infectious person. Patient denies travel to an Ebola-affected area in the 21 days before illness onset. No symptoms or risks identified at this time. Initial Sepsis Screen: Does the patient meet any 2 criteria? No. Patient's initial sepsis screen is negative. Does the patient have a suspected source of infection? No. Patient's initial sepsis screen is negative. Onset of symptoms was January 27, 2020. Care prior to arrival: None. Transition of care: patient was not received from another setting of care. 23:49 Method Of Arrival: Ambulatory sg 23:49 Acuity: CARMEN 3 sg 01/27 00:00 Risk Assessment: Do you want to hurt yourself or someone else? Patient reports no jb4 desire to harm self or others. Historical: - Allergies: 01/26 23:48 NKA; sg - PMHx: 23:48 Arthritis; Hypertension; sg - PSHx: 23:48 umbilical surgery; sg - Immunization history:: Adult Immunizations up to date. - Social history:: Smoking status: Patient denies any tobacco usage or history of. Screenin/23 00:00 Abuse screen: Denies threats or abuse. Nutritional screening: No deficits noted. jb4 Tuberculosis screening: No symptoms or risk factors identified. Fall Risk None identified. Assessment: 00:00 General: Appears in no apparent distress. uncomfortable, Behavior is calm, cooperative, jb4 appropriate for age, Pt reports that her and her son both began having abdominal pain with vomiting after eating the same meal. Her son began to have a fever, pt denies fever.. Pain: Complains of pain in epigastric area Pain radiates to back Pain currently is 7 out of 10 on a pain scale. Quality of pain is described as burning, crampy, Pain began 1 day ago. Neuro: Level of Consciousness is awake, alert, obeys commands, Oriented to person, place, time, situation. Cardiovascular: Patient's skin is warm and dry. Respiratory: Airway is patent Respiratory effort is even, unlabored, Respiratory pattern is regular, symmetrical. GI: Abdomen is non-distended, obese, Bowel sounds present X 4 quads. Abd is soft and non tender X 4 quads. Abdomen is tender to palpation in epigastric area Reports upper abdominal pain, cramping, indigestion, nausea. : No signs and/or symptoms were reported regarding the genitourinary system. EENT: No signs and/or symptoms were reported regarding the EENT system. Derm: Skin is intact, Skin is pink, warm \T\ dry. Musculoskeletal: Circulation, motion, and sensation intact. Range of motion: intact in all extremities. 01:00 Reassessment: Patient appears in no apparent distress at this time. Patient and/or jb4 family updated on plan of care and expected duration. Pain level reassessed. Patient is alert, oriented x 3, equal unlabored respirations, skin warm/dry/pink. 02:00 Reassessment: Patient appears in no apparent distress at this time. Patient and/or jb4 family updated on plan of care and expected duration. Pain level reassessed. Patient is alert, oriented x 3, equal unlabored respirations, skin warm/dry/pink. 03:00 Reassessment: Patient appears in no apparent distress at this time. Patient and/or jb4 family updated on plan of care and expected duration. Pain level reassessed. Patient is alert, oriented x 3, equal unlabored respirations, skin warm/dry/pink. Patient states feeling better. 04:00 Reassessment: Patient appears in no apparent distress at this time. Patient and/or jb4 family updated on plan of care and expected duration. Pain level reassessed. Patient is alert, oriented x 3, equal unlabored respirations, skin warm/dry/pink. 05:06 Reassessment: Patient appears in no apparent distress at this time. Patient and/or jb4 family updated on plan of care and expected duration. Pain level reassessed. Patient is alert, oriented x 3, equal unlabored respirations, skin warm/dry/pink. Vital Signs: 00:00 BP 126 / 84; Pulse 66; Resp 18; Temp 98.2(O); Pulse Ox 98% on R/A; Weight 87.54 kg (R); jb4 Height 5 ft. 5 in. (165.10 cm) (R); Pain 7/10; 01:30 BP 114 / 73; Pulse 80; Resp 16; Pulse Ox 100% on R/A; jb4 02:45 BP 119 / 78; Pulse 80; Resp 16; Pulse Ox 98% on R/A; jb4 04:30 BP 106 / 69; Pulse 76; Resp 16; Pulse Ox 99% on R/A; jb4 00:00 Body Mass Index 32.12 (87.54 kg, 165.10 cm) jb4 ED Course: 01/26 23:18 Patient arrived in ED. ag3 23:48 Arm band placed on. sg 23:50 Triage completed. sg 01/27 00:00 Patient has correct armband on for positive identification. Bed in low position. Call jb4 light in reach. Side rails up X 1. Pulse ox on. NIBP on. 00:20 Robert Hargrove MD is Attending Physician. 7 00:24 Ghanshyam Brown, RN is Primary Nurse. jb4 01:37 Inserted saline lock: 20 gauge in left antecubital area, using aseptic technique. Blood ea collected. 03:25 CT Abd/Pelvis - IV Contrast Only In Process Unspecified. EDMS 05:10 No provider procedures requiring assistance completed. IV discontinued, intact, jb4 bleeding controlled, No redness/swelling at site. Pressure dressing applied. Administered Medications: 01:37 Drug: Pepcid 20 mg Route: IVP; Site: left antecubital; ea 02:00 Follow up: Response: No adverse reaction jb4 01:37 Drug: NS 0.9% 1000 ml Route: IV; Rate: 1000 ml; Site: left antecubital; ea 02:30 Follow up: Response: No adverse reaction; IV Status: Completed infusion jb4 01:38 Drug: morphine 4 mg Route: IVP; Site: left antecubital; ea 02:00 Follow up: Response: No adverse reaction; Pain is decreased; RASS: Alert and Calm (0) jb4 01:38 Drug: Zofran (Ondansetron) 4 mg Route: IVP; Site: left antecubital; ea 02:00 Follow up: Response: No adverse reaction; Nausea is decreased jb4 Outcome: 04:45 Discharge ordered by . adonay 05:10 Discharged to home ambulatory. jb4 05:10 Condition: stable 05:10 Discharge instructions given to patient, Instructed on discharge instructions, follow up and referral plans. medication usage, Demonstrated understanding of instructions, follow-up care, medications, Prescriptions given X 4. 05:11 Patient left the ED. jb4 Signatures: Dispatcher [employer] EDMS Tiago Nuñez RN Ghanshyam Cabello RN LOGAN jb4 Jo Ann Patel RN Telma Flowers ea, Maurice, MD MD mh7 Corrections: (The following items were deleted from the chart) 00:40 00:00 General: Appears in no apparent distress. uncomfortable, Behavior is calm, jb4 cooperative, appropriate for age, jb4
[2020-01-28 05:19] VITALS: TEMP 98.2
[2020-01-28 05:24] VITALS: BP 106/69; O2SAT 99
--- NOTE | 2020-01-29 12:26 | EKG ---
Test Date: 2020-01-28 Test Time: 02:11:06 Director Asset: TT MEASUREMENT RESULTS: Intervals: Rate: 77 CA: 160 QRSD: 76 QT: 418 QTc: 473 [place]: P: 63 CA: 160 QRS: 66 T: 64 INTERPRETIVE STATEMENTS: Normal sinus rhythm Normal ECG Compared to ECG 10/19/2019 15:47:37 No significant changes Electronically Signed On 01-29-20 12:22:37 CDT by Dudley Valdez
--- NOTE | 2020-01-29 14:21 | RAD REPORT ---
EXAM DESCRIPTION: CT - Abdomen Pelvis W Contrast - 01/28/2020 7:10 am CLINICAL HISTORY: ABD PAIN COMPARISON: None. TECHNIQUE: CT ABDOMEN PELVIS WITH IV CONTRAST on 01/28/2020 1:45 AM CDT This exam was performed according to our departmental dose-optimization program, which includes autom ated exposure control, adjustment of the mA and/or kV according to patient size and/or use of iterati ve reconstruction technique. FINDINGS: Lower lungs are clear. Abdomen: The liver is normal in appearance. There is no biliary dilatation. Gallbladder is normal in appearance. The pancreas and spleen are normal in appearance. The adrenal glands and kidneys are unre markable. Abdominal aorta is normal in course and caliber without aneurysm. There is no free air. There is no r etroperitoneal adenopathy. Pelvis: There is no bowel obstruction. Urinary bladder is unremarkable. There is no free fluid. Appen juanito is normal. Uterus is normal in size. Skeleton: There are no acute osseous findings. No suspicious bony lesions. IMPRESSION: No definite acute inflammatory process. Electronically signed by: Rajat Clark MD 01/28/2020 4:28 AM CDT Due to temporary technical issues with the PACS/Fluency reporting system, reports are being signed by the in house radiologist without review as a courtesy to ensure prompt reporting. The interpreting r adiologist is fully responsible for the content of the report.
== END 2020-01-28 05:11 | disposition home or self-care (01) ==
LOC: ER 23:16
DX: K52.9 Noninfective gastroenteritis and colitis, unspecified (principal); I10 Essential (primary) hypertension
CPT/HCPCS: 96361; 93005; 85025; 80048; 36415; 80076; 81003; 83690; 74177; 96375; 96374; 99284; Q9967; J7030; J2405

== ENCOUNTER 2020-03-23 18:58 | Emergency (ER) | payer OTHER ==
--- OUTSIDE RECORDS SUMMARY | 2020-03-23 19:00 | XMS REPORT | Continuity of Care Document ---
:1965 Author Organization [facility] t Address [address] [place] [address] Care Team Providers Name Role Phone Doctor Unassigned, [place] Attending Clinician Unavailable Swallows, Speech Modified Barium Attending Clinician Suzanne HURST, E Attending Clinician Problems This patient has no known problems. Allergies, Adverse Reactions, Alerts This patient has no known allergies or adverse reactions. Medications This patient has no known medications. Procedures This patient has no known procedures. Encounters Start End Encounter Admission Attending Care Care Encounter Source Date/Time Date/Time Type Type Clinicians Facility Department ID 2020-03-02 2020-03-02 Orders Doctor ONESIMO [id number] 00:00:00 00:00:00 Only Unassigned, EUNICE [id number] [place] [facility] [id number] 2020-02-13 2020-02-13 Ancillary Swallows, [facility] [id number] 11:00:12 11:30:12 Visit Gal Speech Y [id number] Modified NATIONAL [id number] [facility] [id number] BLDG. [id number] 2020-01-27 2020-01-27 Office ANABELLA Denson [id number] 10:43:44 11:39:23 Visit [facility] [id number] [facility] [id number] Results This patient has no known results.
--- OUTSIDE RECORDS SUMMARY | 2020-03-23 19:01 | XMS REPORT | Summary of Care ---
:1965 Author Organization [facility] - Health Address [address] [place] [address] Care Team Providers Name Role Phone Pcp, Patient Does Not Have A Primary Care Provider +1-000-00 0-0000 Reason for Visit Reason Comments Swallowing Problem (Routine) Status Reason Specialty Diagnoses / Referred By Referred To Procedures Contact Contact Closed Speech-Language Diagnoses Dysphagia, oropharyngeal phase Lesvia Denson-Speech Pathologist Procedures CONSULT SPEECH SC EVAL,SWALLOW FUNCTION,CINE/VIDEO RECORD E, ACNP [address] [place] [address] 3rd [address] [place] [address] Phone: Encounter Details Date Type Department Care Team Description 02/13/2020 Ancillary Visit [facility] Janet Mckeon, PHD [address] [facility] [id number] [place], [place] [id number] Dysphagia, oropharyngeal phase (Primary Dx); for Audiology & Swallows, Jasper Dempsey Modified Barium Feeding difficulty Speech Pathology [address] [place] [address] 3rd [place] [address] Allergies No Known Allergiesdocumented as of this encounter (statuses as of 02/13/2020) Medications Medication Sig Dispensed Refills Start Date [...] as of this encounter (statuses as of 02/13/2020) Active Problems Problem Noted Date BMI 29.0-29.9,adult 06/16/2017 Prolapse of female bladder, acquired 06/16/2017 Prolapse of anterior vaginal wall 03/15/2017 Obesity 05/12/2016 Encounter for screening breast examination 05/12/2016 Depo-Provera contraceptive status 06/26/2015 Essential hypertension, benign 06/26/2015 Contraceptive management 06/19/2015 Acute cystitis without hematuria 06/17/2015 documented as of this encounter (statuses as of 02/13/2020) Resolved Problems Problem Noted Date Resolved Date Cervicitis 06/26/2015 09/14/2015 Vaginal bleeding, abnormal 11/24/2013 06/19/2015 Elevated blood pressure reading without diagnosis of 014 06/26/2015 hypertension documented as of this encounter (statuses as of 02/13/2020) Immunizations Name Administration Dates Next Due TDAP [...] Signs Not on filedocumented in this encounter Progress Notes Miri Chand, CHRIS - 02/13/2020 9:00 AM CDT Modified Barium Swallow Speech-Language Pathology Services Mi Escoto : 1965 Age: [age] year old Sex: female RAMOS: 02/13/2020 Time In/Out: Referring Physician: Lesvia Denson ACNP Date of Referral: 01/27/2020 Medical Diagnosis: oropharyngeal dysphagia; feeding difficulty Reason for Referral: r/o aspiration; objectively evaluate the oropharyngeal swallow with imaging; SUBJECTIVE: Patient arrived ambulatory, accompanied by her granddaughter and agreeable to participate. 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 She reports that she has occasional difficulty swallowing, stating that it feels as though "things get stuck". This reportedly began ~3 months ago without clear cause. She denies recent pna/uri, reflux, or unexplained weight loss. OBJECTIVE: Mi Escoto was seen for modified barium swallow study (MBS). Patient is a 54 year old female with PMH significant for HTN, otherwise as stated below. Pertinent Imaging: No final results containing an impression from the past 30 days were found. Previous TOURIST AGENT Services/Swallow History: None identified by chart or reported by patient. Past Medical History: Diagnosis Date Anemia not sure if she still has anemia has not followe up Blood transfusion, without reported diagnosis 10/30/2013 Cervicitis 06/26/2015 resolved Essential hypertension, benign 06/26/2015 ongoing, on medication Past Surgical History: Procedure Laterality Date UMBILICULECTOMY 28 years ago General Behavior: Alert and Cooperative Hearing: Within Functional Limits for speech Oral Mechanism: Structure: dentate - missing some teeth; moist oral mucosa Function: Unremarkable - no facial droop/weakness, no subjective trismus, symmetric labial spread and pucker, lingual protrusion midline with equal lateralization, symmetrical palatal retraction, no dysphonia, no dysarthria, no apraxia Respiratory Status: room air Orientation/Cognition: - Patient oriented to: person, place, time and situation - Response type: verbal - If verbal, describe speech: clear - Follows 1-step commands: Yes EVALUATION: Patient presented with barium in thin liquids, nectar-thick liquids, puree and chewable solid consistencies viewed under fluoroscopy in the lateral and A/P plane with Dr. Martinez from radiology. COMPONENTS AND SCORES ORAL IMPAIRMENT Component 1-Lip Closure: 0= No labial escape Component 2-Tongue Control During Bolus Hold: 0= Cohesive bolus between tongue to palatal seal Component 3-Bolus Preparation/Mastication: 0= Timely & efficient chewing and mashing Component 4-Bolus Transport/Lingual Motion: typically 0= Brisk tongue action though occasionally 1= Delayed initiation of tongue motion Component 5-Oral Residue: 1= Trace residue lining oral structures Component 6-Initiation of Pharyngeal Swallow: 1= Bolus head in valleculae and 3= Bolus head in pyriforms with thin liquids PHARYNGEAL IMPAIRMENT Component 7-Soft Palate Elevation: 1= Trace column of contrast or air between SP and PW Component 8-Laryngeal Elevation: 0= Complete superior movement of thyroid cartilage with complete approximation of arytenoids to epiglottic petiole Component 9-Anterior Hyoid Excursion: 0= Complete anterior movement Component 10-Epiglottic Movement: 0= Complete inversion Component 11-Laryngeal Vestibular Closure-Height Swallow: 0=Complete; no air/contrast in laryngeal vestibule Component 12-Pharyngeal Stripping Wave: 0= Present - complete Component 13-Pharyngeal Contraction (A/P view only): 0= Complete Component 14-Pharyngoesophageal Segment Openin= Complete distension and complete duration; no obstruction of flow Component 15-Tongue Base (TB) Retraction: 0= No contrast between TB and posterior pharyngeal wall (PW) Component 16-Pharyngeal Residue: 0= Complete pharyngeal clearance ESOPHAGEAL IMPAIRMENT Component 17-Esophageal Clearance Upright Position: 0= Complete clearance; esophageal coating and occasional 2= Esophageal retention with retrograde flow below pharyngoesophageal segment (PES) PENETRATION/ASPIRATION thin liquid: Penetration occurred: single event. Aspiration did not occur: N/A PAS: 1-material does not enter airway nectar thick liquid: Penetration did not occur: N/A. Aspiration did not occur: N/A PAS: 1-material does not enter airway puree: Penetration did not occur: N/A. Aspiration did not occur: N/A PAS: 1- material does not enter airway chewable solids: Penetration did not occur: N/A. Aspiration did not occur: N/A PAS: 1-material does not enter airway Penetration/Aspiration Scale Legend: 1-material does not enter airway 2-enters the airway, remains above vocal folds and is ejected 3-enters the airway, remains above vocal cords and is not ejected 4-enters the airway, contacts the vocal folds and is ejected 5-enters the airway, contacts the vocal folds and is not ejected 6-enters the airway, passes below the vocal folds and is ejected into the larynx or out of the airway 7-enters the airway, passes below the vocal folds and is not ejected from the trachea despite effort 8-enters the airway, passes below the vocal folds and no effort is made to eject FACILITATIVE TECHNIQUES ATTEMPTED: bolus modification and mode of presentation Images/loops available for review in PACS. Patient/Family Education: Provided verbally. Reviewed MBS loops/images. Patient/Family Goal: safe po intake, more comfortable po intake ASSESSMENT: Mi Escoto presents with grossly safe and functional oropharyngeal swallow. Patient did have intermittently prolonged oral phase/bolus holding behavior which she reported to be due to distaste of barium though this TOURIST AGENT suspects fear/anxiety related to swallowing to be a possible factor. Swallow initiation occurs at the level of the vallecula in the majority of trials though occasionally at the level of the pyriforms with thin liquids which resulted in intermittent flash penetration of thin liquids that was immediately/spontaneously ejected (PAS 2). Patient otherwise demonstrates adequate airway protection with no other instances of penetration/aspiration observed. Tongue base retraction and pharyngeal constriction are evident resulting in complete pharyngeal clearance. Of note, patient had somewhat poor tolerance of exam/distaste of barium and had occasional gagging behaviors. This seemingly resulted in what appeared to be occasional retrograde flow of material below the UES. However, given that radiologist also noted delayed motility through the esophagus in the A-P view, it is possible that patient has an underlying esophageal dysphagia. Given results today, patient is safe for continuedPO diet from an oropharyngeal standpoint. Results/recs discussed thoroughly with patient and granddaughter who verbalized understanding. No further acute TOURIST AGENT services indicated at this time. Impressions: grossly safe and functional oropharyngeal swallow; intermittent flash penetration of thin liquids (PAS 2); no aspiration Prognosis is good for safe po intake with adherence to swallow precautions due to above findings. PLAN: 1. Recommend patient continue a regular-textured diet with thin liquids and swallow precautions: sitfully upright/chair, small single sips/bites, alternate sips/bites and remain upright for 30 minutesafter meals 2. Patient would benefit from continued, close follow up with GI. May consider further investigationof possible esophageal dysphagia with completion of full barium swallow study. May also consider psych consult given possible fear/anxiety related to swallowing especially if further work-up is negative. 3. No further TOURIST AGENT services indicated at this time. Please re-consult if indicated. Thank you. Miri Chand MS, CCC-TOURIST AGENT Speech Language Pathology Pager: [phone] Office Number: [phone] signed by Miri Chand, TOURIST AGENT at 02/13/2020 11:27 AM CDTdocumented in this encounter Plan of Treatment Date Type Specialty Care Team Description 02/24/2020 Office Visit Gastroenterology Lesvia Denson, [facility] [address] [place] [address] [place] [address] [phone] Health Maintenance Due Date Last Done Comments Breast Cancer Screening 03/09/2016 03/09/2015, 03/11/2014, (MAMMOGRAM) 11/12/2012, Additional history exists PAP SMEAR 12/27/2016 12/27/2013, 04/28/2010, 04/09/2009, Additional history exists COLONOSCOPY 2017 Zoster Recombinant Vaccine 2017 (SHINGRIX) (1 of 2) INFLUENZA VACCINE (#1) 2020 Depression Screening 01/26/2021 01/27/2020 DTaP,Tdap,and Td Vaccines 02/04/2025 02/04/2015 (2 - Td) PNEUMOCOCCAL 0-64 YEARS Aged Out No longe r eligible COMBINED SERIES based on patient 's age to complete this topic documented as of this encounter Results Not on filedocumented in this encounter Visit Diagnoses Diagnosis Dysphagia, oropharyngeal phase - Primary Feeding difficulty Feeding difficulties and mismanagement documented in this encounter documented as of this encounter Advance Directives Type Date Recorded 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
--- OUTSIDE RECORDS SUMMARY | 2020-03-23 19:01 | XMS REPORT | Summary of Care ---
:1965 Author Organization [facility] - Health Address [address] [place] [address] Care Team Providers Name Role Phone Pcp, Patient Does Not Have A Primary Care Provider +1-000-00 0-0000 Encounter Details Date Type Department Care Team Description 03/02/2020 Orders Only [facility] Doctor Unassigned, No [address] [facility] [place] [address] [address] [place] [address] Allergies No Known Allergiesdocumented as of this encounter (statuses as of 03/02/2020) Medications Medication Sig Dispensed Refills Start Date [...] as of this encounter (statuses as of 03/02/2020) Active Problems Problem Noted Date BMI 29.0-29.9,adult 06/16/2017 Prolapse of female bladder, acquired 06/16/2017 Prolapse of anterior vaginal wall 03/15/2017 Obesity 05/12/2016 Encounter for screening breast examination 05/12/2016 Depo-Provera contraceptive status 06/26/2015 Essential hypertension, benign 06/26/2015 Contraceptive management 06/19/2015 Acute cystitis without hematuria 06/17/2015 documented as of this encounter (statuses as of 03/02/2020) Resolved Problems Problem Noted Date Resolved Date Cervicitis 06/26/2015 09/14/2015 Vaginal bleeding, abnormal 11/24/2013 06/19/2015 Elevated blood pressure reading without diagnosis of 014 06/26/2015 hypertension documented as of this encounter (statuses as of 03/02/2020) Immunizations Name Administration Dates Next Due TDAP [...] Travel End No recent travel history available. 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
--- NOTE | 2020-03-23 21:56 | ER ---
Nurse's Notes [facility] Name: Mi Ortiz Age: 54 yrs Sex: Female : 1965 Arrival Date: 03/23/2020 Time: 19:00 Bed 16 Private MD: Diagnosis: Pain in left foot Presentation: 03/23 19:21 Chief complaint: Patient states: 4th toe pain on L foot, sole on L foot pain x 1 week. ca1 Denies injury. Coronavirus screen: Client denies travel out of the [place] in the last 14 days. At this time, the client does not indicate any symptoms associated with coronavirus-19. Ebola Screen: Patient negative for fever greater than or equal to 101.5 degrees Fahrenheit, and additional compatible Ebola Virus Disease symptoms Patient denies exposure to infectious person. Patient denies travel to an Ebola-affected area in the 21 days before illness onset. No symptoms or risks identified at this time. Initial Sepsis Screen: Does the patient meet any 2 criteria? No. Patient's initial sepsis screen is negative. Does the patient have a suspected source of infection? No. Patient's initial sepsis screen is negative. Risk Assessment: Do you want to hurt yourself or someone else? Patient reports no desire to harm self or others. Onset of symptoms was March 23, 2020. 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 - Social history:: Smoking status: Patient denies any tobacco usage or history of. Screenin:07 Abuse screen: Denies threats or abuse. Denies injuries from another. Nutritional mg2 screening: No deficits noted. Tuberculosis screening: No symptoms or risk factors identified. Fall Risk None identified. Assessment: 21:06 General: Appears in no apparent distress. comfortable, Behavior is calm, cooperative. mg2 Pain: Complains of pain in left foot Pain does not radiate. Pain currently is 3 out of 10 on a pain scale. Quality of pain is described as aching. Neuro: Level of Consciousness is awake, alert, obeys commands, Oriented to person, place, time, situation. Cardiovascular: Capillary refill < 3 seconds Patient's skin is warm and dry. Respiratory: Airway is patent Respiratory effort is even, unlabored, Respiratory pattern is regular, symmetrical. GI: No signs and/or symptoms were reported involving the gastrointestinal system. : No signs and/or symptoms were reported regarding the genitourinary system. EENT: No signs and/or symptoms were reported regarding the EENT system. Derm: Skin is intact, is healthy with good turgor, Skin is pink, warm \T\ dry. normal. Musculoskeletal: Circulation, motion, and sensation intact. Capillary refill < 3 seconds, Reports pain in left foot. Vital Signs: 19:21 BP 128 / 82; Pulse 81; Resp 15; Temp 98.6(O); Pulse Ox 100% on R/A; Weight 84.37 kg ca1 (R); Height 5 ft. 5 in. (165.10 cm) (R); 22:14 BP 121 / 80; Pulse 80; Resp 18; Temp 98; Pulse Ox 100% on R/A; mg2 19:21 Body Mass Index 30.95 (84.37 kg, 165.10 cm) ca1 ED Course: 19:00 Patient arrived in ED. as 19:21 Arm band placed on right wrist. ca1 19:23 Triage completed. ca1 20:30 Carson Carpenter PA is PHCP. jr8 20:30 Marciano Olivas MD is Attending Physician. jr8 20:42 Salvatore Brewster, LOGAN is Primary Nurse. mg2 21:07 No provider procedures requiring assistance completed. Patient did not have IV access mg2 during this emergency room visit. 21:08 Patient has correct armband on for positive identification. mg2 21:55 Juma Amor DPM is Referral Physician. jr8 22:06 XRAY Foot LEFT 3 View In Process Unspecified. EDMS Administered Medications: No medications were administered Outcome: 21:55 Discharge ordered by . jr8 22:14 Discharged to home ambulatory. mg2 22:14 Condition: stable 22:14 Discharge instructions given to patient, Instructed on discharge instructions, follow up and referral plans. medication usage, Demonstrated understanding of instructions, follow-up care, medications, Prescriptions given X 1. 22:14 Patient left the ED. mg2 Signatures: Dispatcher [employer] Eliana Small Josh, PA PA jr8 Salvatore Brewster RN RN mg2 Tiffani Louis RN RN ca1 Corrections: (The following items were deleted from the chart) 19:24 19:21 Pulse 81bpm; Resp 15bpm; Pulse Ox 100% RA; Temp 98.6F Oral; 84.37 kg Reported; ca1 Height 5 ft. 5 in. Reported; BMI: 30.9; ca1
--- NOTE | 2020-03-23 21:56 | EDPHYS ---
Physician Documentation [facility] Name: Mi Ortiz Age: 54 yrs Sex: Female : 1965 Arrival Date: 03/23/2020 Time: 19:00 Bed 16 Private MD: LEATHA Physician Marciano Olivas HPI: 03/23 21:51 This 54 yrs old Female presents to ER via Ambulatory with complaints of Foot jr8 Pain. 21:51 The patient presents with pain. The complaints affect the dorsum of left foot. Onset: jr8 The symptoms/episode began/occurred acutely, today. Modifying factors: The symptoms are alleviated by nothing. the symptoms are aggravated by movement, weight bearing. Associated signs and symptoms: The patient has no apparent associated signs or symptoms. Severity of symptoms: At their worst the symptoms were moderate, in the emergency department the symptoms are unchanged. The patient has not experienced similar symptoms in the past. The patient has not recently seen a physician. 21:51 Patient states that she has had foot pain in past from previous injury but denies jr8 recent injury to affected foot. Stated that it started to hurt and will not go away . 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 - Social history:: Smoking status: Patient denies any tobacco usage or history of. ROS: 21:51 Eyes: Negative for injury, pain, redness, and discharge, ENT: Negative for injury, jr8 pain, and discharge, Neck: Negative for injury, pain, and swelling, Cardiovascular: Negative for chest pain, palpitations, and edema, Respiratory: Negative for shortness of breath, cough, wheezing, and pleuritic chest pain, Abdomen/GI: Negative for abdominal pain, nausea, vomiting, diarrhea, and constipation, Back: Negative for injury and pain, Skin: Negative for injury, rash, and discoloration, Neuro: Negative for headache, weakness, numbness, tingling, and seizure. 21:51 MS/extremity: Positive for pain, tenderness, of the dorsum of left foot. Exam: 21:51 Constitutional: This is a well developed, well nourished patient who is awake, alert, jr8 and in no acute distress. Cardiovascular: Regular rate and rhythm with a normal S1 and S2. No gallops, murmurs, or rubs. Normal PMI, no JVD. No pulse deficits. Respiratory: Lungs have equal breath sounds bilaterally, clear to auscultation and percussion. No rales, rhonchi or wheezes noted. No increased work of breathing, no retractions or nasal flaring. Skin: Warm, dry with normal turgor. Normal color with no rashes, no lesions, and no evidence of cellulitis. Neuro: Awake and alert, GCS 15, oriented to person, place, time, and situation. Cranial nerves II-XII grossly intact. Motor strength 5/5 in all extremities. Sensory grossly intact. Cerebellar exam normal. Normal gait. 21:51 Musculoskeletal/extremity: Extremities: grossly normal except: noted in the left foot: Patient has tenderness to 2nd digit and MTP joint without bruising or swelling noted , ROM: intact in all extremities, full active range of motion, full passive range of motion, Circulation is intact in all extremities. Sensation intact. Vital Signs: 19:21 BP 128 / 82; Pulse 81; Resp 15; Temp 98.6(O); Pulse Ox 100% on R/A; Weight 84.37 kg ca1 (R); Height 5 ft. 5 in. (165.10 cm) (R); 22:14 BP 121 / 80; Pulse 80; Resp 18; Temp 98; Pulse Ox 100% on R/A; mg2 19:21 Body Mass Index 30.95 (84.37 kg, 165.10 cm) ca1 MDM: 20:31 Patient medically screened. jr8 21:51 Data reviewed: vital signs, nurses notes, radiologic studies, plain films. Data jr8 interpreted: Pulse oximetry: on room air is 100 %. Interpretation: normal. 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 ED course: No acute fracture noted to left foot. Will put on NSAID based product and have patient f/u with podiatry. Knows to come back if worse. Patient good with plan . 03/23 21:06 Order name: XRAY Foot LEFT 3 View jr8 Administered Medications: No medications were administered Disposition: 03/24 10:50 Co-signature as Attending Physician, Marciano Olivas MD I agree with the assessment and jay plan of care. Disposition: 03/23/20 21:55 Discharged to Home. Impression: Pain in left foot. - Condition is Stable. - Discharge Instructions: Foot Pain. - Prescriptions for meloxicam 15 mg Oral tablet - take 1 tablet by ORAL route once daily As needed; 20 tablet. - Medication Reconciliation Form, Thank You Letter, Antibiotic Education, Prescription Opioid Use form. - Follow up: Juma Amor DPM; When: 5 - 6 days; Reason: Recheck today's complaints, Continuance of care, Re-evaluation by your physician. - Problem is new. - Symptoms have improved. Signatures: Dispatcher [employer] EDMS Marciano Olivas MD MD cha Roszak, Josh, PA PA jr8 Salvatore Brewster, RN RN mg2 Tiffani Louis RN RN ca1 Corrections: (The following items were deleted from the chart) 03/23 22:14 21:55 03/23/2020 21:55 Discharged to Home. Impression: Pain in left foot. Condition is mg2 Stable. Forms are Medication Reconciliation Form, Thank You Letter, Antibiotic Education, Prescription Opioid Use. Follow up: Dr. Juma Amor; When: 5 - 6 days; Reason: Recheck today's complaints, Continuance of care, Re-evaluation by your physician. Problem is new. Symptoms have improved. jr8
--- NOTE | 2020-03-23 22:34 | RAD REPORT ---
EXAM DESCRIPTION: RAD - Foot Left 3 View - 03/23/2020 10:05 pm CLINICAL HISTORY: PAIN COMPARISON: Foot Left 3 View dated 06/09/2019 FINDINGS: Small posterior calcaneal spur is present. No acute fracture or dislocation is seen.
[2020-03-23 23:22] VITALS: O2SAT 100
[2020-03-23 23:26] VITALS: BP 121/80; TEMP 98
== END 2020-03-23 22:14 | disposition home or self-care (01) ==
LOC: ER 18:58
DX: M79.672 Pain in left foot (principal); I10 Essential (primary) hypertension

== ENCOUNTER 2020-06-02 09:22 | Day surgery (SDC) | payer BC ==
[2020-05-26 10:51] LABS: Absolute Lymphocytes (CBC) 1.8 K/uL (0.7-4.9); Basophils % 0.6 % (0-1.3); Hematocrit 37.7 % (36.0-45.0); Lymphocytes % 30.9 % (15.3-44.8); MPV 8.5 fL (7.6-11.3); RBC Red Blood Cell Count 4.45 M/uL (3.86-4.86)
[2020-05-26 10:56] LABS: Protime INR 1.06
[2020-05-26 11:16] LABS: Potassium 3.7 mmol/L (3.5-5.1)
[2020-05-26 11:59] LABS: Urine Appearance CLEAR; Urine Bilirubin NEGATIVE (NEG); Urine Blood NEGATIVE (NEG); Urine Color YELLOW; Urine Glucose NEGATIVE (NEG); Urine Protein NEGATIVE (NEG); Urine Urobilinogen 0.2 mg/dL (0.2-1.0)
[2020-05-26 12:27] LABS: Urine Microscopic Reflex NO UMIC
--- OUTSIDE RECORDS SUMMARY | 2020-06-02 09:45 | XMS REPORT | Continuity of Care Document ---
:1965 Author Organization [facility] t Address [address] [place] [address] Care Team Providers Name Role Phone Doctor Unassigned, [place] Attending Clinician Unavailable Swallows, Speech Modified Barium [...] ID 2020-03-02 2020-03-02 Orders Doctor ONESIMO [id number] 00:00:00 00:00:00 Only UnassignedEUNICE [id number] [place] [facility] [id number] 2020-02-13 2020-02-13 Ancillary Swallows, UNIVERSIT [id number] 11:00:12 11:30:12 Visit Gal Speech Y [id number] Modified NATIONAL [id number] [facility] [id number] BLDG. 145 2020-01-27 2020-01-27 Office ANABELLA Denson [id number] 10:43:44 11:39:23 Visit [facility] [id number] [facility] [id number] Results This patient has no known results.
[2020-06-02] MEDS ORDERED: Ringers Lactate 1,000 ML IV ONE ×4 (09:56→16:52)
[2020-06-02] MEDS ORDERED: SCOPOLAMINE HYDROBROMIDE PATCH TD ONE (09:56)
[2020-06-02] MEDS ORDERED: CEFAZOLIN/SWI 2gm 2 GM/20 ML SYR ONE (09:57)
[2020-06-02] MEDS ORDERED: BUPIVACAINE 0.25% PF 30 ML VIAL ONE (11:04)
[2020-06-02] MEDS ORDERED: NA CHLORIDE 0.9% 100 ML IV ONE (11:04)
[2020-06-02] MEDS ORDERED: CEFAZOLIN/SWI 1gm 1 GM/10 ML SYR ONE (11:05)
[2020-06-02] MEDS ORDERED: Phenylephrine HCl 10 MG/ML 1 ML VIAL ONE (11:45)
[2020-06-02] MEDS ORDERED: NS 0.9% VIAL 10 ML ONE (11:46)
[2020-06-02] MEDS ORDERED: propofoL 200 MG/20 ML VIAL IV ONE (13:13)
[2020-06-02] MEDS ORDERED: KETOROLAC 30 MG/ML INJ ONE (13:13)
[2020-06-02] MEDS ORDERED: ROCURONIUM 50 MG/5 ML VIAL IV ONE (13:13)
[2020-06-02] MEDS ORDERED: FENTANYL CITR 100 MCG/2 ML ONE ×2 (13:13→14:26)
[2020-06-02] MEDS ORDERED: MIDAZOLAM HCL 2 MG/2 ML INJ ONE (13:13)
[2020-06-02] MEDS ORDERED: ONDANSETRON 4 MG/2 ML VIAL ONE (13:13)
[2020-06-02] MEDS ORDERED: dexAMETHasone 4 MG/ML VIAL ONE (13:13)
[2020-06-02] MEDS ORDERED: LIDOCAINE 2% MPF 5 ML VIAL ONE (13:13)
[2020-06-02] MEDS ORDERED: CEFAZOLIN SODIUM 1 GM/VIAL ONE (14:21)
[2020-06-02] MEDS ORDERED: NS 0.9% VIAL 20 ML ONE (14:21)
[2020-06-02] MEDS: VASOPRESSIN 20 UNIT/ML VIAL ONE ×2 (14:45→15:30)
[2020-06-02] MEDS ORDERED: GLYCOPYRROLATE 0.2 MG/ML SYR ONE (15:42)
[2020-06-02] MEDS ORDERED: NEOSTIGMINE 1 MG/ML -5 ML ONE (15:42)
[2020-06-02] MEDS: HYDROMORPHONE HCL 1 MG/ML INJ ONE ×2 (16:37→16:42)
[2020-06-02] MEDS ORDERED: PROMETHAZINE INJ 25 MG/ML AMP ONE (16:51)
[2020-06-02] MEDS ORDERED: HYDROCODONE/APAP 5/325 MG TAB ONE (19:48)
[2020-06-02 20:54] VITALS: BP 127/84; TEMP 97.7; O2SAT 96
--- NOTE | 2020-06-04 02:20 | OP ---
Date of Procedure: 06/02/2020 Surgeon: Cindy Celaya MD Commercial Leasing Agent: Leeann Rodriguez. Preoperative Diagnoses: Incomplete uterovaginal prolapse, mixed urinary incontinence, pelvic pain. Postoperative Diagnoses: Stage II uterovaginal prolapse, pelvic pain, mixed urinary incontinence, an d rectocele. Procedures Performed: 1.Total laparoscopic hysterectomy, bilateral salpingo-oophorectomy. 2.Bilateral uterosacral ligament suspension colpopexy. 3.Mid urethral sling and cystoscopy (tension-free vaginal tape obturator). 4.Posterior colporrhaphy, perineorrhaphy. Anesthesia: General endotracheal. Estimated Blood Loss: 100. Urine Output: 300. Specimens: Uterus, bilateral tubes and ovaries. Complication: None. Drains: Wilkes catheter and vaginal packing. Findings: Pop-Q is as follows 0, +1, -2. Size moderate, 7, -2, -1, and -3. Ov diamond and tubes and uterus unremarkable. There was anterior wall left epigastric vessel bleeding from Antonio-Maty ne edle entry to retract suture. This was tied with the help of 3-0 Monocryl suture and it was complete ly hemostatic without any problems. Uterosacral suspension was performed with the help of Miami-Isaías sutures, 1 Ethibond and 1 Miami-Isaías sut ure on the right, and both Miami-Isaías sutures on the left side. There is posterior repair in the dista l half and the sling was TVT-O placed without any problems. Description Of Procedure: After informed consent was verified, the patient was taken back to OR and placed in supine fashion on the operating table. 3 g of Ancef were given, SCDs were started, and she was placed in a supine fashion on the operating table. General anesthesia was given and she was sumi matthew in a dorsal lithotomy position. Using Sumanth stirrups, arms tucked by the side and positioning ch ecked. SCDs were started. Time-out was done. Abdomen, vulva, vagina, and perineum were prepped and draped in a sterile fashion. Wilkes was draining the bladder and attached for retrograde filling and large VCare introduced into the uterus and fixed in place. On the abdomen, an incision was made at the level of the umbilical scar. The umbilicus was absent for this patient due to prior umbilical re moval in 1988. Fascia was incised, tagged with 0 Vicryl sutures, S-retractors placed, and after the peritoneum was entered bluntly, then Tanya was introduced. The peritoneal cavity was insufflated wi th carbon dioxide, and site of entry was checked, unremarkable. She was placed in a Trendelenburg po sition and completely unremarkable uterus, tubes. No adhesions. The patient's trocars were placed, 10 suprapubic and 2 right and left, 5 ports were placed. A left upper quadrant entry was made for a 3-0 Monocryl that was placed on the epiploica of the sigmoid colon for retraction; however, when I wa s retracting this and pulling out the suture retracting this through the left upper quadrant, there w as a vessel injury that was bleeding and so a 3-0 Monocryl suture was placed on each side and tied do wn at the level of the fascia and there was excellent hemostasis. Then, the Antonio-Maty needle w as reintroduced lateral to it and the suture was retracted and there were no problems during the enti re case, and after desufflation was done, this was also checked and there was no bleeding. The hysterectomy was performed first. Utero-ovarian ligament, mesosalpinx, round ligament, broad lig ament were all taken down. Bladder flap was raised. Bladder was dissected inferiorly. Anterior vag inal wall was opened up and vesicovaginal space was opened up. Posteriorly, dissection tearing to the posterior wall, here there was a detachment of the posterior v aginal connective tissue to the apical wall. The peritoneum was incised. Then, on the opposite side , similar dissection was performed. Utero-ovarian ligament was taken down, mesosalpinx taken down th e round ligament, broad ligament, and then the bladder flap anteriorly connected by dissecting inferi mala and completely exposing the anterior vaginal wall for the colpotomy and posteriorly taken down t o the posterior peritoneum around the VCare cup. Then, vessels were taken down on the right side and on the left side with the help of the LigaSure and the cardinal ligaments as well was left with them . After the vessels were taken down on both sides, a circumferential colpotomy was performed with a mon opolar hook blade and the specimen detached and pulled out through the vagina. Thorough irrigation and suction were performed. There was a very small amount of bleeding from the r ight lateral wall. Here, this was cauterized with the tip of a bipolar [place]. There was moderate hemostasis, but later on there was excellent hemostasis without any further cautery, should have bee n in a small vessel that was bleeding that completely stopped. The vaginal cuff was closed with the help of a 2-0 PDS, 2 simple angle sutures, and 3 [id number]-hk-yupix in the center. There was excellent closure. Then, after this the dissection of the anterior vagina l wall was conducted pushing the bladder down for at least another 2 cm and posterior wall was expose d here as well for another centimeter and a half. Then, uterosacral ligaments were picked up. These were pre-prominent. In the distal one-half, a 3-0 Monocryl suture was placed for traction on the ut erosacral at least 5 cm away from the distal attachment a stitch was taken with the Ethibond medial t o lateral and lateral to medial, then passing through the posterior wall connective tissue and the an terior wall connective tissue. The suture was held on a hemostat. Then, the Miami-Isaías suture was yojana en and placed proximally through the uterosacral ligament again from lateral to medial and medial to lateral and taken up to the posterior vaginal wall connective tissue and anterior vaginal connective tissue onto the right side. So, these 2 sutures were first tied down. Once this was done, then the stay suture was placed with a 3-0 Monocryl on the left uterosacral. Once this was pulled up adequate ly and at least 4-5 cm proximal from the distal end of the attachment without kinking the ureter, two Miami-Isaías sutures were placed in a U-shaped fashion and then through the posterior vaginal and anteri or vaginal alvarez pulling up the entire vaginal apex and the anterior wall straightening it out. Dist al suture was placed laterally and proximal suture was placed medially to pull the cuff up to the lig aments. Once these sutures were tied down snugly without being too tight, then the entire area was i rrigated with warm normal saline. There was excellent peristalsis of ureters from both sides without any displacement. No evidence of any bleeding. Cystoscopy was performed with a 17-English sheath, 3 0-degree lens, and normal saline. There were excellent squirts of urine from both ureteric orifices. The one on the left side was initially slow but later reassuring. No evidence of any sutures or foreign body in the bladder. No tumors. The bladder was drained Wilkes was replaced. Gloves were changed. The closure was done after the ports were removed, gas was desufflated, injected with Marcaine at the entry and exit for all the ports, and after the stay suture was removed from the epiploicae, there w as no bleeding here and no bleeding at the site of entry. All the skin incisions were closed with the help of 4-0 Vicryl interrupted sutures. The fascia at th e umbilicus and the suprapubic area was closed with 0 Vicryl sutures. Staple for closure. After the catheter was retracted superiorly, midurethral area was picked up with Allis clamps, inject ed with dilute vasopressin 20 units mixed with 50 cc of normal saline and 10 cc was injected for hydr odissection and on the lateral aspects as well hugging the inferior pubic ramus. 1 cm incision was m robbie in the mid urethral area slightly more proximal through the epithelium, sub-epithelium, and conne ctive tissue. Then, a track was made on each side at a 40-degrees angle to the horizontal and vertic al planes towards the ipsilateral shoulder hugging the inferior pubic ramus. Once the track was crea leroy and the obturator space was entered, the membrane was perforated and track was opened up. Simila r dissection was performed on the opposite side. Then, wing guide was taken and placed on the left s anne first and spike was passed without any problems exiting at a horizontal line dropped 2 cm above t he level of the external meatus, 1 cm outside the groin fold, and a cut was made on the skin, metal p in removed, and then plastic dilator pulled out from the skin mesh and the plastic sheaths were held with Gerda's and the dilator cut. On the opposite side, similar pass was taken without any problems at a very similar location on the o pposite side. Then once both sheaths then mesh were held, tensioning was performed in the center wit h the help of Metzenbaum scissors, and once well tensioned, the sheaths were pulled out and mesh trim med very flushed with the skin. There was slight bleeding from the left groin incision and pressure was held and there was excellent hemostasis. The closure after antibiotic irrigation was done at the epithelium with the help of 3-0 Vicryl in a continuous running horizontal mattress fashion. There w as good hemostasis. Cystoscopy was performed. No evidence of any trauma or foreign body here. Fole y was replaced. Then, posterior repair was done at the level of the hymen. Two Allis clamps were placed, injected th e posterior 1/3rd with the help of dilute vasopressin 30 cc. Then, a elizabeth-shaped incision was mad e and skin excised. There was 1 area of defect in the right lateral aspect distally towards the jimy brandee body, so once this was reflected and the connective tissue defect was well visualized, then all the epithelial edges were raised and the remnants of the fascial attachments were picked up, perineal body was rebuilt with the help of interrupted 2-0 Vicryl sutures. Then, with the help of 2-0 PDS, t he connective tissue defect was closed in a continuous running fashion. Then, 2-0 Vicryl was used to bring together an another stitch with a pair for the perineal body, and after this was satisfactory, the epithelium was closed with the help of 2-0 Vicryl in a continuous running fashion all the way to the hymen and then tied and sent. The perineal body defect was repair was done at this site and the n closure was performed. Rectal exam was performed. No evidence of any trauma. Vaginal packing was done after gloves were ch anged. Dermabond was placed on the skin incisions. Instrument, needle, and sponge counts were corre ct at the end of the case. The patient tolerated the procedure well. Wilkes was left in place. She was discharged home without any problems and she has a voiding trial on Monday. Vaginal packing inst ructions were given to be removed on Monday morning. Pain prescription Tylenol No. 3 called in an d instructions were given in Slovak. SARIKA/MANUEL Voice ID: [id number] Report ID: [id number]
== END 2020-06-02 20:40 | disposition home or self-care (01) ==
LOC: OR 09:22
PROVIDERS: ATTEND Obstetrics & Gynecology
PROC: 0UT24ZZ Resection of Bilateral Ovaries, Percutaneous Endoscopic Approach (ICD-10-PCS; 2020-06-02)
PROC: 0UT74ZZ Resection of Bilateral Fallopian Tubes, Percutaneous Endoscopic Approach (ICD-10-PCS; 2020-06-02)
PROC: 0TSD4ZZ Reposition Urethra, Percutaneous Endoscopic Approach (ICD-10-PCS; 2020-06-02)
PROC: 0USG7ZZ Reposition Vagina, Via Natural or Artificial Opening (ICD-10-PCS; 2020-06-02)
PROC: 0JQC0ZZ Repair Pelvic Region Subcutaneous Tissue and Fascia, Open Approach (ICD-10-PCS; 2020-06-02)
PROC: 0HQ9XZZ Repair Perineum Skin, External Approach (ICD-10-PCS; 2020-06-02)
PROC: 0UT94ZZ Resection of Uterus, Percutaneous Endoscopic Approach (ICD-10-PCS; principal; 2020-06-02 10:30)
DX: N81.2 Incomplete uterovaginal prolapse (principal); N39.46 Mixed incontinence; R10.2 Pelvic and perineal pain; N95.2 Postmenopausal atrophic vaginitis; I10 Essential (primary) hypertension; E03.9 Hypothyroidism, unspecified; N84.0 Polyp of corpus uteri; R12 Heartburn; Z20.828 Contact with and (suspected) exposure to other viral communicable diseases
CPT/HCPCS: 58571; 57288; 57283; 57250; 85025; 80048; 36415; 86900; 86850; 85610; 86901; 88305; 85730; 81003; U0002; J2704; J1100; J2550; J2370; J2250; J3010 ×2; J1170; J2710; J0690 ×3; J7120 ×4; J2405; 88307

== ENCOUNTER 2020-06-12 10:15 | Emergency (ER) | payer BC ==
[2020-06-12] MEDS ORDERED: LORazepam 2 MG/ML VIAL ONE (10:51)
[2020-06-12 11:03] LABS: Absolute Lymphocytes (CBC) 1.8 K/uL (0.7-4.9); Basophils % 0.8 % (0-1.3); Hematocrit 37.1 % (36.0-45.0); Lymphocytes % 23.4 % (15.3-44.8); MPV 8.5 fL (7.6-11.3); RBC Red Blood Cell Count 4.51 M/uL (3.86-4.86)
[2020-06-12 11:04] LABS: Protime INR 1.1
[2020-06-12 11:13] LABS: Albumin 3.7 g/dL (3.4-5.0); Bilirubin Total 0.4 mg/dL (0.2-1.0); Potassium 3.7 mmol/L (3.5-5.1); Protein, Total 8.5 g/dL (6.4-8.2)
--- NOTE | 2020-06-12 11:14 | RAD REPORT ---
EXAM DESCRIPTION: CTAbdomen Pelvis W Contrast - 06/12/2020 11:07 am CLINICAL HISTORY: Abdominal pain. pelvic pain, s/p surgery COMPARISON: Abdomen Pelvis W Contrast dated 01/28/2020; Abdomen Pelvis W Contrast dated 12/25/2017 TECHNIQUE: Biphasic CT imaging of the abdomen and pelvis was performed with 100 ml non-ionic IV cont rast. All CT scans are performed using dose optimization technique as appropriate and may include automated exposure control or mA/KV adjustment according to patient size. FINDINGS: The lung bases are clear. The liver, spleen, pancreas, adrenal glands and kidneys are within normal limits. No bowel obstruction, free air, free fluid or abscess. The appendix is normal. No evidence of signi ficant lymphadenopathy. No suspicious bony findings. IMPRESSION: No acute intra-abdominal or pelvic finding.
--- NOTE | 2020-06-12 11:57 | RAD REPORT ---
EXAM DESCRIPTION: US - Extremity Venous Uni Ltd - 06/12/2020 11:51 am CLINICAL HISTORY: pain, s/p surgery Leg swelling and edema. COMPARISON: Extrem Venous W Compress Pietro dated 11/19/2015 FINDINGS: Right lower extremity venous system was interrogated with Doppler technique. Normal flow, compressibility and augmentation was noted. There is no DVT present. IMPRESSION: No evidence of right lower extremity deep venous thrombosis.
--- NOTE | 2020-06-12 12:21 | ER ---
Nurse's Notes [facility] Name: Mi Ortiz Age: 54 yrs Sex: Female : 1965 Arrival Date: 06/12/2020 Time: 10:19 Bed 18 Private MD: Lubna Bentley Diagnosis: Pain in right leg Presentation: 06/12 10:30 Chief complaint: Patient states: pain to R groin and upper thigh since having bladder ss sling and partial hysterectomy on 06/02. Sent by Dr. Celaya for further evaluation and treatment. Coronavirus screen: Client denies travel out of the [place] in the last 14 days. Ebola Screen: Patient denies exposure to infectious person. Patient denies travel to an Ebola-affected area in the 21 days before illness onset. Initial Sepsis Screen: Does the patient meet any 2 criteria? No. Patient's initial sepsis screen is negative. Does the patient have a suspected source of infection? No. Patient's initial sepsis screen is negative. Risk Assessment: Do you want to hurt yourself or someone else? Patient reports no desire to harm self or others. Onset of symptoms was June 02, 2020. 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 - Social history:: Smoking status: Patient denies any tobacco usage or history of. Screenin:28 Abuse screen: Denies threats or abuse. Denies injuries from another. Nutritional sv screening: No deficits noted. Tuberculosis screening: No symptoms or risk factors identified. 10:40 Fall Risk No fall in past 12 months (0 pts). No secondary diagnosis (0 pts). IV access sv (20 points). Ambulatory Aid- None/Bed Rest/Nurse Assist (0 pts). Gait- Normal/Bed Rest/Wheelchair (0 pts) Mental Status- Oriented to own ability (0 pts). Total King Fall Scale indicates No Risk (0-24 pts). Assessment: 10:40 General: Appears in no apparent distress. uncomfortable, well groomed, well developed, sv Behavior is calm, cooperative, appropriate for age. Pain: Complains of pain in right femoral area, right inguinal area and right leg. Neuro: Level of Consciousness is awake, alert, obeys commands, Oriented to person, place, time, situation, Moves all extremities. Full function Gait is steady. Respiratory: Airway is patent Respiratory effort is even, unlabored, Respiratory pattern is regular, symmetrical. Derm: Skin is intact, Skin is pink, warm \T\ dry. Musculoskeletal: Range of motion: intact in all extremities. 11:20 Reassessment: Patient appears in no apparent distress at this time. Patient and/or sv family updated on plan of care and expected duration. Pain level reassessed. Patient is alert, oriented x 3, equal unlabored respirations, skin warm/dry/pink. 12:40 Reassessment: Patient appears in no apparent distress at this time. Patient and/or sv family updated on plan of care and expected duration. Pain level reassessed. Patient is alert, oriented x 3, equal unlabored respirations, skin warm/dry/pink. Patient states feeling better. Patient states symptoms have improved. Vital Signs: 10:30 BP 128 / 82; Pulse 90; Resp 17; Temp 98.4(TE); Pulse Ox 99% on R/A; Weight 79.83 kg; ss Height 5 ft. 5 in. (165.10 cm); Pain 0/10; 10:30 Body Mass Index 29.29 (79.83 kg, 165.10 cm) ED Course: 10:19 Patient arrived in ED. mr 10:19 Lubna Bentley is Private Physician. mr 10:24 Adan Ordonez PA is PHCP. jmm 10:24 Pedro Pablo Ralph MD is Attending Physician. [facility] 10:28 Rafaela Strickland RN is Primary Nurse. sv 10:28 Nurse Practitioner and/or Physician Telephone Coin Box Collector to see patient. sv 10:28 Patient has correct armband on for positive identification. Bed in low position. Call sv light in reach. Adult w/ patient. Pulse ox on. NIBP on. 10:30 Arm band placed on right wrist. ss 10:34 Triage completed. ss 10:40 Inserted saline lock: 20 gauge in right forearm, using aseptic technique. Blood sv collected. Flushed right forearm with 5 ml normal saline. 10:[address] Scan, Awaiting: and Ultrasound. sv 11:07 CT Abd/Pelvis - IV Contrast Only In Process Unspecified. EDMS 11:52 US Extremity Venous Unilateral Ltd In Process Unspecified. EDMS 12:41 No provider procedures requiring assistance completed. IV discontinued, intact, ss bleeding controlled, No redness/swelling at site. Pressure dressing applied. Administered Medications: 10:49 Drug: Ativan 1 mg Route: IVP; Site: right forearm; sv 11:00 Follow up: Response: No adverse reaction sv Outcome: 12:20 Discharge ordered by MD. malam 12:41 Discharged to home via wheelchair, with family. ss 12:41 Condition: good 12:41 Discharge instructions given to patient, family, Instructed on discharge instructions, follow up and referral plans. medication usage, Demonstrated understanding of instructions, follow-up care, medications, Prescriptions given X 1. 12:41 Patient left the ED. ss Signatures: Dispatcher [employer] Rafaela Barrera, RN RN Adan Ordonez PA PA jmm Rivera, Mary mr Madison Delgado, RN RN
--- NOTE | 2020-06-12 12:21 | EDPHYS ---
Physician Documentation [facility] Name: Mi Ortiz Age: 54 yrs Sex: Female : 1965 Arrival Date: 06/12/2020 Time: 10:19 Bed 18 Private MD: Lubna Bentley ED Physician Pedro Pablo Ralph HPI: 06/12 10:36 This 54 yrs old Female presents to ER via Ambulatory with complaints of Leg jmm Pain, Unable to sleep. 10:36 The patient presents with pain. Onset: The symptoms/episode began/occurred gradually, 3 jmm day(s) ago. Modifying factors: The symptoms are alleviated by nothing. the symptoms are aggravated by nothing. Associated signs and symptoms: Pertinent negatives swelling. This is a 54 year old female with a history of arthritis, htn that presents to the ED with complaints of right groin discomfort and right leg pain. S/p hysterectomy and surgical bladder suspension. Patient denies fever, vomiting, chest pain. . 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 - Social history:: Smoking status: Patient denies any tobacco usage or history of. ROS: 10:36 Constitutional: Negative for fever, chills, and weight loss, Cardiovascular: Negative jmm for chest pain, palpitations, and edema, Respiratory: Negative for shortness of breath, cough, wheezing, and pleuritic chest pain. 10:36 MS/extremity: Positive for pain. 10:36 All other systems are negative. Exam: 10:36 Constitutional: This is a well developed, well nourished patient who is awake, alert, jmm and in no acute distress. Head/Face: atraumatic. Eyes: EOMI, no conjunctival erythema appreciated ENT: Moist Mucus Membranes Neck: Trachea midline, Supple Chest/axilla: Normal chest wall appearance and motion. Cardiovascular: Regular rate and rhythm. No edema appreciated Respiratory: Normal respirations, no respiratory distress appreciated Abdomen/GI: Non distended, soft Back: Normal ROM Skin: General appearance color normal MS/ Extremity: Moves all extremities, no obvious deformities appreciated, no edema noted to the lower extremities Neuro: Awake and alert, normal gait Psych: Behavior is normal, Mood is normal, Patient is cooperative and pleasant Vital Signs: 10:30 BP 128 / 82; Pulse 90; Resp 17; Temp 98.4(TE); Pulse Ox 99% on R/A; Weight 79.83 kg; ss Height 5 ft. 5 in. (165.10 cm); Pain 0/10; 10:30 Body Mass Index 29.29 (79.83 kg, 165.10 cm) ss MDM: 10:26 Patient medically screened. [facility] 12:19 Data reviewed: vital signs, nurses notes. Counseling: I had a detailed discussion with [facility] the patient and/or guardian regarding: the historical points, exam findings, and any diagnostic results supporting the discharge/admit diagnosis, lab results, radiology results, the need for outpatient follow up, to return to the emergency department if symptoms worsen or persist or if there are any questions or concerns that arise at home. ED course: Patient is alert and non toxic in appearance in the ED. Patient is advised to follow up with Dr. Celaya for further evaluation. Patient understood and agrees with the plan of care. . 06/12 10:35 Order name: CBC with Diff; Complete Time: 11:13 [facility] 06/12 10:35 Order name: CMP; Complete Time: 11:13 [facility] 06/12 10:35 Order name: PT-INR; Complete Time: 11:13 [facility] 06/12 10:35 Order name: US Extremity Venous Unilateral Ltd; Complete Time: 12:02 [facility] 06/12 11:38 Order name: CREATININE WHOLE BLOOD; Complete Time: 11:49 [facility] [place] 06/12 12:31 Order name: Urine Dipstick--Ancillary (enter results) 06/12 10:35 Order name: Saline Lock; Complete Time: 10:49 [facility] 06/12 10:35 Order name: CT Abd/Pelvis - IV Contrast Only; Complete Time: 11:15 [facility] 06/12 10:36 Order name: Urine Dipstick-Ancillary (obtain specimen); Complete Time: 12:19 [facility] Administered Medications: 10:49 Drug: Ativan 1 mg Route: IVP; Site: right forearm; sv 11:00 Follow up: Response: No adverse reaction sv Disposition: 11/06/20 12:20 Discharged to Home. Impression: Pain in right leg. - Condition is Stable. - Prescriptions for Hydroxyzine HCl 50 mg Oral Tablet - take 1 tablet by ORAL route every 8 hours As needed; 20 tablet. - Medication Reconciliation Form, Thank You Letter, Antibiotic Education, Prescription Opioid Use form. - Follow up: Private Physician; When: 2 - 3 days; Reason: Recheck today's complaints, Continuance of care, Re-evaluation by your physician. Addendum: 06/14/2020 18:41 Co-signature as Attending Physician, Pedro Pablo Ralph MD I agree with the assessment and k dr plan of care. Signatures: Dispatcher [employer] Rafaela Barrera, RN RN Pedro Pablo Ralph MD MD kdr Mickail, Joel, PA PA jmm Smirch, Shelby, RN RN ss Corrections: (The following items were deleted from the chart) 06/12 12:41 12:20 06/12/2020 12:20 Discharged to Home. Impression: Pain in right leg. Condition is ss Stable. Forms are Medication Reconciliation Form, Thank You Letter, Antibiotic Education, Prescription Opioid Use. Follow up: Private Physician; When: 2 - 3 days; Reason: Recheck today's complaints, Continuance of care, Re-evaluation by your physician. aletha
[2020-06-12 12:52] VITALS: BP 128/82; TEMP 98.4; O2SAT 99
[2020-06-12 13:04] LABS: Urine Blood 1+ (NEG); Urine Glucose NEGATIVE (NEG); Urine Protein NEGATIVE (NEG); Urine Specific Gravity 1.015 (1.005-1.030)
== END 2020-06-12 12:41 | disposition home or self-care (01) ==
LOC: ER 10:15
DX: M79.604 Pain in right leg (principal); Z90.710 Acquired absence of both cervix and uterus; I10 Essential (primary) hypertension
CPT/HCPCS: 85025; 36415; 85610; 82565; 81003; 80053; 74177; 93971; 96374; 99284; Q9967

== ENCOUNTER 2020-08-17 22:54 | Emergency (ER) | payer BC ==
--- OUTSIDE RECORDS SUMMARY | 2020-08-17 22:56 | XMS REPORT | Continuity of Care Document ---
:1965 Author Organization [facility] t Address [address] [place] [address] Dr. Lopez [address] [place] [address] Care Team Providers Name Role Phone Doctor Unassigned, [place] Attending Clinician Unavailable Swallows, Speech Modified [place]ium Attending Clinician Suzanne Denson ACNP, E Attending Clinician Problems This patient has no known problems. Allergies, Adverse Reactions, Alerts This patient has no known allergies or adverse reactions. Medications This patient has no known medications. Procedures This patient has no known procedures. Encounters Start End Encounter Admission Attending Care Care Encounter Source Date/Time Date/Time Type Type Clinicians Facility Department ID 2020-03-02 2020-03-02 Orders Doctor ONESIMO [id number] 00:00:00 00:00:00 Only Unassigned, EUNICE [id number] [place] [facility] [id number] 2020-02-13 2020-02-13 Ancillary Swallows, UNIV[place] [id number] 11:00:12 11:30:12 Visit Gal Speech Y [id number] Modified NATIONAL [id number] [facility] [id number] BLDG. 145 2020-01-27 2020-01-27 Office ANABELLA Denson [id number] 10:43:44 11:39:23 Visit [facility] [id number] [facility] [id number] Results This patient has no known results.
[2020-08-17 23:40] LABS: Absolute Lymphocytes (CBC) 1.9 K/uL (0.7-4.9); Basophils % 0.4 % (0-1.3); Hematocrit 36.7 % (36.0-45.0); MPV 8.1 fL (7.6-11.3); RBC Red Blood Cell Count 4.42 M/uL (3.86-4.86)
[2020-08-17 23:58] LABS: ALT/SGPT 17 U/L (12-78); AST/SGOT 15 U/L (15-37); Albumin 3.9 g/dL (3.4-5.0); Alkaline Phosphatase 134 U/L (45-117); BUN Blood Urea Nitrogen 16 mg/dL (7-18); Bicarbonate 27 mmol/L (21-32); Bilirubin Direct < 0.1 mg/dL (0-0.2); Bilirubin Total 0.4 mg/dL (0.2-1.0); Glucose Level 114 mg/dL (74-106); Lipase 103 U/L (73-393); Protein, Total 8.7 g/dL (6.4-8.2); Sodium Level 139 mmol/L (136-145)
[2020-08-18] MEDS ORDERED: NA CHLORIDE 0.9% 1,000 ML ONE (00:14)
[2020-08-18] MEDS ORDERED: MORPHINE 4 MG/ML SYR ONE (00:14)
[2020-08-18] MEDS ORDERED: ONDANSETRON 4 MG/2 ML VIAL ONE (00:14)
[2020-08-18 00:45] LABS: Troponin (Emerg Dept Use Only) < 0.02 ng/mL (0.0-0.045)
--- NOTE | 2020-08-18 02:04 | EDPHYS ---
Physician Documentation [facility] Name: Mi Ortiz Age: 55 yrs Sex: Female : 1965 Arrival Date: 08/17/2020 Time: 22:58 Bed 28 Private MD: ED Physician Jarred Godfrey HPI: 08/18 00:08 This 55 yrs old Female presents to ER via EMS with complaints of Abdominal pkl Pain. 00:08 The patient presents with abdominal pain in the epigastric area. Onset: The pkl symptoms/episode began/occurred suddenly, just prior to arrival. The symptoms do not radiate. Associated signs and symptoms: Pertinent positives: diaphoresis both hands. The patient has not experienced similar symptoms in the past. Historical: - Allergies: 08/17 23:08 NKA; vg1 - Home Meds: 23:08 fluoxetine 20 mg Oral cap 1 cap once daily [Active]; lisinopril-hydrochlorothiazide vg1 10-12.5 mg Oral tab 1 tab twice a day [Active]; - PMHx: 23:08 Arthritis; Hypertension; vg1 - Immunization history:: Adult Immunizations up to date, Flu vaccine is up to date. - Social history:: Smoking status: Patient denies any tobacco usage or history of. ROS: 08/18 00:08 Eyes: Negative for injury, pain, redness, and discharge, ENT: Negative for injury, pkl pain, and discharge, Neck: Negative for injury, pain, and swelling, Cardiovascular: Negative for chest pain, palpitations, and edema, Respiratory: Negative for shortness of breath, cough, wheezing, and pleuritic chest pain. Abdomen/GI: Positive for abdominal pain, nausea. Back: Negative for acute changes. : Negative for urinary symptoms. MS/extremity: Negative for acute changes. Skin: Positive for diaphoresis, of the both hands. Neuro: Negative for altered mental status, loss of consciousness. Exam: 00:08 Head/Face: Normocephalic, atraumatic. Eyes: Pupils equal round and reactive to light, pkl extra-ocular motions intact. Lids and lashes normal. Conjunctiva and sclera are non-icteric and not injected. Cornea within normal limits. Periorbital areas with no swelling, redness, or edema. ENT: Nares patent. No nasal discharge, no septal abnormalities noted. Tympanic membranes are normal and external auditory canals are clear. Oropharynx with no redness, swelling, or masses, exudates, or evidence of obstruction, uvula midline. Mucous membranes moist. Neck: Trachea midline, no thyromegaly or masses palpated, and no cervical lymphadenopathy. Supple, full range of motion without nuchal rigidity, or vertebral point tenderness. No Meningismus. Chest/axilla: Normal chest wall appearance and motion. Nontender with no deformity. No lesions are appreciated. Cardiovascular: Regular rate and rhythm with a normal S1 and S2. No gallops, murmurs, or rubs. Normal PMI, no JVD. No pulse deficits. Respiratory: Lungs have equal breath sounds bilaterally, clear to auscultation and percussion. No rales, rhonchi or wheezes noted. No increased work of breathing, no retractions or nasal flaring. 00:08 Abdomen/GI: Bowel sounds: normal, Palpation: soft, mild abdominal tenderness, in the epigastric area. 00:08 Back: Exam negative for acute changes. 00:08 : Exam negative for acute changes. 00:08 Musculoskeletal/extremity: Exam is negative for acute changes. 00:08 Skin: Exam negative for rash. 00:08 Neuro: Orientation: is normal, Mentation: is normal, Cranial nerves: grossly normal, Motor: is normal. Vital Signs: 08/17 23:04 BP 126 / 88; Pulse 75; Resp 20; Temp 98.0; Pulse Ox 100% on R/A; Weight 83.01 kg; vg1 Height 5 ft. 5 in. (165.10 cm); Pain 10/10; 08/18 00:00 BP 125 / 85; Pulse 71; Resp 20; Pulse Ox 100% on R/A; vg1 08/17 23:04 Body Mass Index 30.45 (83.01 kg, 165.10 cm) vg1 MDM: 08/17 23:44 Patient medically screened. pkl 08/18 00:15 Data reviewed: vital signs, nurses notes. pkl 02:01 Data reviewed: lab test result(s), radiologic studies, CT scan. ED course: Patient pkl feeling better. Discussed lab and CT Scan result with patient. Advised to follow up with her PCP in 2 to 3 days. Patient understood instructions. 08/17 23:14 Order name: Basic Metabolic Panel; Complete Time: 01:58 5 08/17 23:14 Order name: CBC with Diff; Complete Time: 23:50 [facility] 08/17 23:14 Order name: Hepatic Function; Complete Time: 01:58 5 08/17 23:14 Order name: Lipase; Complete Time: 01:58 5 08/18 00:22 Order name: Troponin (Emerg Dept Use Only); Complete Time: 01:58 [facility] 08/17 23:14 Order name: IV Saline Lock; Complete Time: 23:21 5 08/17 23:14 Order name: Labs collected and sent; Complete Time: 23:28 5 08/17 23:54 Order name: CT Abd/Pelvis - IV Contrast Only pkl Administered Medications: 00:09 Drug: NS 0.9% 1000 ml Route: IV; Rate: 1000 ml; Site: right antecubital; vg1 00:09 Drug: morphine 4 mg {Note: rass 1.} Route: IVP; Site: right antecubital; vg1 00:09 Drug: Zofran (Ondansetron) 4 mg Route: IVP; Site: right antecubital; vg1 02:13 Drug: Cipro 500 mg Route: PO; dm5 Disposition: 08/18/20 02:03 Discharged to Home. Impression: Abdominal pain. Colitis. - Condition is Stable. - Prescriptions for Zofran 4 mg Oral Tablet - take 1 tablet by ORAL route every 12 hours As needed; 10 tablet. Cipro 500 mg Oral Tablet - take 1 tablet by ORAL route every 12 hours for 5 days; 10 tablet. - Medication Reconciliation Form, Thank You Letter, Antibiotic Education, Prescription Opioid Use form. - Follow up: Private Physician; When: 2 - 3 days; Reason: Re-evaluation by your physician. - Problem is new. - Symptoms have improved. Signatures: Dispatcher [employer] [facility] Aleisha Murdock, RN RN dm5 Jarred Godfrey MD MD pkNicky Grant RN RN vg1 Corrections: (The following items were deleted from the chart) 00:22 00:15 TROPONIN (EMERG DEPT USE ONLY)+C.LAB.BRZ ordered. [facility] EDMS 02:51 02:03 08/18/2020 02:03 Discharged to Home. Impression: Abdominal pain. Colitis. dm5 Condition is Stable. Forms are Medication Reconciliation Form, Thank You Letter, Antibiotic Education, Prescription Opioid Use. Follow up: Private Physician; When: 2 - 3 days; Reason: Re-evaluation by your physician. Problem is new. Symptoms have improved. pkl
--- NOTE | 2020-08-18 02:04 | ER ---
Nurse's Notes [facility] Name: Mi Ortiz Age: 55 yrs Sex: Female : 1965 Arrival Date: 08/17/2020 Time: 22:58 Bed 28 Private MD: Diagnosis: Abdominal pain. Colitis Presentation: 08/17 23:04 Chief complaint: EMS states: Patient had sudden ABD pain and became diaphoretic and vg1 hands and feet became tingling. Patient was given 1000 mg of Tylenol upon transportation. Coronavirus screen: Client denies travel out of the [place] in the last 14 days. Ebola Screen: Patient negative for fever greater than or equal to 101.5 degrees Fahrenheit, and additional compatible Ebola Virus Disease symptoms. Initial Sepsis Screen: Does the patient meet any 2 criteria? No. Patient's initial sepsis screen is negative. Does the patient have a suspected source of infection? No. Patient's initial sepsis screen is negative. Risk Assessment: Do you want to hurt yourself or someone else? Patient reports no desire to harm self or others. Onset of symptoms was August 17, 2020. 23:04 Method Of Arrival: EMS: [facility] vg1 23:04 Acuity: CARMEN 3 vg1 Historical: - Allergies: 23:08 NKA; vg1 - Home Meds: 23:08 fluoxetine 20 mg Oral cap 1 cap once daily [Active]; lisinopril-hydrochlorothiazide vg1 10-12.5 mg Oral tab 1 tab twice a day [Active]; - PMHx: 23:08 Arthritis; Hypertension; vg1 - Immunization history:: Adult Immunizations up to date, Flu vaccine is up to date. - Social history:: Smoking status: Patient denies any tobacco usage or history of. Screenin:10 Abuse screen: Denies threats or abuse. Nutritional screening: No deficits noted. vg1 Tuberculosis screening: No symptoms or risk factors identified. Fall Risk None identified. Assessment: 23:09 General: Appears in no apparent distress. uncomfortable, Behavior is calm, cooperative. vg1 Pain: Complains of pain in abdomen Pain currently is 10 out of 10 on a pain scale. Pain began 1 hour ago. Neuro: Level of Consciousness is awake, alert, obeys commands, Oriented to person, place, time, situation. Cardiovascular: Patient's skin is warm and dry. Respiratory: Airway is patent Respiratory effort is even, unlabored, Respiratory pattern is regular, symmetrical. GI: Bowel sounds present X 4 quads. Abd is soft and non tender Reports constipation, Patient currently denies diarrhea, nausea, vomiting. : No signs and/or symptoms were reported regarding the genitourinary system. EENT: No signs and/or symptoms were reported regarding the EENT system. Derm: Skin is intact, is healthy with good turgor. Musculoskeletal: Circulation, motion, and sensation intact. 08/18 00:11 Reassessment: Patient is alert, oriented x 3, equal unlabored respirations, skin vg1 warm/dry/pink. Patient is grimacing and guarding ABD. States pain is still 05/16. Vital Signs: 08/17 23:04 BP 126 / 88; Pulse 75; Resp 20; Temp 98.0; Pulse Ox 100% on R/A; Weight 83.01 kg; vg1 Height 5 ft. 5 in. (165.10 cm); Pain 05/16; 08/18 00:00 BP 125 / 85; Pulse 71; Resp 20; Pulse Ox 100% on R/A; vg1 08/17 23:04 Body Mass Index 30.45 (83.01 kg, 165.10 cm) vg1 ED Course: 08/17 22:58 Patient arrived in ED. mw2 23:04 Nicky Fagan, RN is Primary Nurse. vg1 23:07 Triage completed. vg1 23:10 Maintain EMS IV. Dressing intact. Good blood return noted. Site clean \T\ dry. Gauge \T\ vg 1 site: 20 G R AC. 23:10 Arm band placed on. vg1 23:10 Patient has correct armband on for positive identification. Bed in low position. Call vg1 light in reach. Side rails up X2. 23:29 Initial lab(s) drawn, by me, sent to lab. vg1 23:44 Jarred Godfrey MD is Attending Physician. pkl 08/18 00:42 CT Abd/Pelvis - IV Contrast Only In Process Unspecified. EDMS Administered Medications: 00:09 Drug: NS 0.9% 1000 ml Route: IV; Rate: 1000 ml; Site: right antecubital; vg1 00:09 Drug: morphine 4 mg {Note: rass 1.} Route: IVP; Site: right antecubital; vg1 00:09 Drug: Zofran (Ondansetron) 4 mg Route: IVP; Site: right antecubital; vg1 02:13 Drug: Cipro 500 mg Route: PO; dm5 Outcome: 02:03 Discharge ordered by MD. turk 02:51 Patient left the ED. dm5 Signatures: Dispatcher [employer] Aleisha Raymundo RN RN dm5 Jarred Godfrey MD MD pkl [place], MyKena mw2 Nicky Fagan RN RN vg1 Corrections: (The following items were deleted from the chart) 08/17 23:30 23:10 Maintain EMS IV. Dressing intact. Gauge \T\ site: 20 G R AC. vg1 vg1
[2020-08-18] MEDS ORDERED: CIPROFLOXACIN HCL 500 MG TAB ONE (02:30)
[2020-08-18 02:57] VITALS: TEMP 98; O2SAT 100
[2020-08-18 02:58] VITALS: BP 125/85
[2020-08-18] MEDS ORDERED: ONDANSETRON 4 MG (ODT) TAB ONE (03:08)
--- NOTE | 2020-08-18 12:28 | RAD REPORT ---
EXAM DESCRIPTION: CT - Abdomen Pelvis W Contrast - 08/18/2020 6:22 am CLINICAL HISTORY: The patient is 55 years old and is Female; ABD PAIN TECHNIQUE: Axial computed tomography images of the abdomen and pelvis with intravenous contrast. S agittal and coronal reformatted images were created and reviewed. This CT exam was performed using one or more of the following dose reduction techniques: automated exposure control, adjustment of t he mA and/or kV according to patient size, and/or use of iterative reconstruction technique. COMPARISON: CT of the abdomen and pelvis June 12, 2020 FINDINGS: LUNG BASES: Unremarkable. No mass. No consolidation. ABDOMEN: LIVER: Unremarkable. No mass. GALLBLADDER AND BILE DUCTS: The gallbladder is physiologically distended. PANCREAS: No ductal dilation. No mass. SPLEEN: Unremarkable. ADRENALS: Unremarkable. No mass. KIDNEYS AND URETERS: Unremarkable. The kidneys enhance symmetrically. No obstructing renal or ur eteral calculus is seen. No hydronephrosis or hydroureter. No perinephric fluid or stranding. STOMACH AND BOWEL: The stomach is distended with food contents. The small bowel is normal in tuyet iber. Stool is present throughout colon. Mild mucosal enhancement/thickening involving the left colon at the level of the rectum is noted. A few scattered colonic diverticula are present without surroun ding inflammation. There is no bowel obstruction. PELVIS: APPENDIX: The appendix is normal in caliber without surrounding inflammation. BLADDER: The bladder is moderately distended. REPRODUCTIVE: The patient is status post hysterectomy. ABDOMEN and PELVIS: INTRAPERITONEAL SPACE: Unremarkable. No free air. No significant fluid collection. BONES/JOINTS: No acute fracture. SOFT TISSUES: The soft tissues are normal. VASCULATURE: Several calcified phleboliths are present within the pelvis. The vascular structure s are normal in course and caliber and patent. No abdominal aortic aneurysm. LYMPH NODES: Unremarkable. No enlarged lymph nodes. IMPRESSION: Findings suggest mild colitis involving the left colon. There is no evidence of obstruct ion. Electronically signed by: Alanis Calderón MD 08/18/2020 12:57 AM SAS SQL DEVELOPER Due to temporary technical issues with the PACS/Fluency reporting system, reports are being signed by the in house radiologist without review as a courtesy to ensure prompt reporting. The interpreting r adiologist is fully responsible for the content of the report.
== END 2020-08-18 02:51 | disposition home or self-care (01) ==
LOC: ER 22:54
DX: K52.9 Noninfective gastroenteritis and colitis, unspecified (principal); I10 Essential (primary) hypertension
CPT/HCPCS: 85025; 80048; 36415; 80076; 84484; 83690; 74177; Q9967; 96374; 96375; 99284

== ENCOUNTER 2020-11-01 15:20 | Emergency (ER) | payer BC ==
--- OUTSIDE RECORDS SUMMARY | 2020-11-01 15:22 | XMS REPORT | Continuity of Care Document ---
:1965 Author Organization [facility] t Address [address] [place] [address] Dr. Lopez [address] [place] [address] Care Team Providers Name Role Phone Doctor Unassigned, [place] Attending Clinician Unavailable Swallows, Speech Modified Barium [...] ID 2020-03-02 2020-03-02 Orders Doctor ONESIMO [id number] 00:00:00 00:00:00 Only Unassigned, EUNICE [id number] [place] [facility] [id number] 2020-02-13 2020-02-13 Ancillary Swallows, UN[place] [id number] 11:00:12 11:30:12 Visit Gal Speech Y [id number] Modified NATIONAL [id number] Barium BANK [id number] BLDG. 145 2020-01-27 2020-01-27 Office ANABELLA Denson [id number] 10:43:44 11:39:23 Visit [facility] [id number] [facility] [id number] Results This patient has no known results.
--- NOTE | 2020-11-01 16:53 | RAD REPORT ---
EXAM DESCRIPTION: RAD - Knee Right 3 View - 11/01/2020 4:46 pm CLINICAL HISTORY: Right knee pain status post injury FINDINGS: No fracture or dislocation is seen. Small joint effusion. If patient continues have symptoms to suggest an occult fracture, ligamentous or meniscal injury then MRI would be recommended
--- NOTE | 2020-11-01 17:22 | EDPHYS ---
Physician Documentation [facility] Name: Mi Ortiz Age: 55 yrs Sex: Female : 1965 Arrival Date: 11/01/2020 Time: 15:24 Bed Waiting Private MD: ED Physician Colt Gusman HPI: 11/01 17:43 This 55 yrs old Female presents to ER via Ambulatory with complaints of Knee kb Pain. 17:44 The patient presents with pain, that is acute. The complaints affect the right knee. kb Context: The problem was sustained at home, resulted from the patient falling, the patient can fully bear weight, the patient is able to ambulate. Onset: The symptoms/episode began/occurred last week, and became worse 3 day(s) ago. Modifying factors: The symptoms are alleviated by nothing. the symptoms are aggravated by movement. Associated signs and symptoms: The patient has no apparent associated signs or symptoms. Treatment prior to arrival includes: no previous treatment. Severity of symptoms: At their worst the symptoms were moderate, in the emergency department the symptoms are unchanged. The patient has not experienced similar symptoms in the past. The patient has not recently seen a physician. pt reports right knee pain. STates she feels like it clicks when she walks and when she's sleeping. 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 - Social history:: Smoking status: Patient denies any tobacco usage or history of. ROS: 17:54 Constitutional: Negative for fever, chills, and weight loss, Skin: Negative for injury, kb rash, and discoloration, Neuro: Negative for headache, weakness, numbness, tingling, and seizure. 17:54 MS/extremity: Positive for pain, of the right knee. Exam: 17:55 Constitutional: This is a well developed, well nourished patient who is awake, alert, kb and in no acute distress. Head/Face: Normocephalic, atraumatic. Respiratory: Respirations even and unlabored. No increased work of breathing, no retractions or nasal flaring. Skin: Warm, dry with normal turgor. Normal color. MS/ Extremity: Pulses equal, no cyanosis. Neurovascular intact. Full, normal range of motion. Neuro: Awake and alert, GCS 15, oriented to person, place, time, and situation. Moves all extremities. Normal gait. Vital Signs: 15:37 BP 125 / 90; Pulse 73; Resp 16; Temp 98.3; Pulse Ox 100% ; Weight 83.46 kg; Height 5 ll1 ft. 5 in. (165.10 cm); Pain 7/10; 15:37 Body Mass Index 30.62 (83.46 kg, 165.10 cm) ll1 MDM: 17:17 Patient medically screened. kb 17:43 Data reviewed: vital signs, nurses notes. Data interpreted: Pulse oximetry: on room air kb is 100 %. Interpretation: normal. Counseling: I had a detailed discussion with the patient and/or guardian regarding: the historical points, exam findings, and any diagnostic results supporting the discharge/admit diagnosis, radiology results, the need for outpatient follow up, a orthopedic surgeon, to return to the emergency department if symptoms worsen or persist or if there are any questions or concerns that arise at home. 11/01 16:06 Order name: Knee Right 3 View XRAY; Complete Time: 16:56 kb 11/01 17:21 Order name: Knee Immobilizer; Complete Time: 17:30 kb Administered Medications: No medications were administered Disposition: 17:44 Co-signature as Attending Physician, Colt Gusman MD. rn Disposition: 11/01/20 17:21 Discharged to Home. Impression: Pain in right knee. - Condition is Stable. - Discharge Instructions: Knee Pain, [id number]. - Prescriptions for Cyclobenzaprine 10 mg Oral Tablet - take 1 tablet by ORAL route every 8 hours As needed; 21 tablet. Diclofenac Sodium 75 mg Oral Tablet, Delayed Release (E.C.) - take 1 tablet by ORAL route 2 times per day As needed; 30 tablet. - Medication Reconciliation Form, Thank You Letter, Antibiotic Education, Prescription Opioid Use form. - Follow up: Emergency Department; When: As needed; Reason: Worsening of condition. Follow up: Private Physician; When: 2 - 3 days; Reason: Recheck today's complaints, Continuance of care, Re-evaluation by your physician. Signatures: Dispatcher [employer] Rhiannon Ramirez, CERTIFIED VEHICLE FIRE INVESTIGATOR-C CERTIFIED VEHICLE FIRE INVESTIGATOR-Ckb Colt Gusman MD MD rn Lewis, Lynsay, RN RN ll1 Corrections: (The following items were deleted from the chart) 17:32 17:21 11/01/2020 17:21 Discharged to Home. Impression: Pain in right knee. Condition is ll1 Stable. Forms are Medication Reconciliation Form, Thank You Letter, Antibiotic Education, Prescription Opioid Use. Follow up: Emergency Department; When: As needed; Reason: Worsening of condition. Follow up: Private Physician; When: 2 - 3 days; Reason: Recheck today's complaints, Continuance of care, Re-evaluation by your physician. kb
--- NOTE | 2020-11-01 17:22 | ER ---
Nurse's Notes [facility] Name: Mi Ortiz Age: 55 yrs Sex: Female : 1965 Arrival Date: 11/01/2020 Time: 15:24 Bed Waiting Private MD: Diagnosis: Pain in right knee Presentation: 11/01 15:37 Chief complaint: Patient states: R knee pain for 1 week. s/p slip and fall last week. ll1 Pain has gotten worse the past 2 days. Gait steady. Coronavirus screen: Client denies travel out of the [place] in the last 14 days. At this time, the client does not indicate any symptoms associated with coronavirus-19. Ebola Screen: Patient denies travel to an Ebola-affected area in the 21 days before illness onset. Initial Sepsis Screen: Does the patient meet any 2 criteria? No. Patient's initial sepsis screen is negative. Does the patient have a suspected source of infection? Yes: Bone or joint infection. Risk Assessment: Do you want to hurt yourself or someone else? Patient reports no desire to harm self or others. Onset of symptoms was October 25, 2020. 15:37 Method Of Arrival: Ambulatory ll1 15:37 Acuity: CARMEN 4 ll1 Triage Assessment: 15:40 General: Appears uncomfortable, Behavior is calm, cooperative, appropriate for age. ll1 Pain: Complains of pain in R knee Quality of pain is described as aching, Aggravated by increased activity. Neuro: No deficits noted. Cardiovascular: No deficits noted. Respiratory: No deficits noted. GI: No deficits noted. Musculoskeletal: Circulation, motion, and sensation intact. Capillary refill < 3 seconds, Range of motion: intact in all extremities, Tenderness present in R knee Reports pain in R knee. Injury Description: Bruise. 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 - Social history:: Smoking status: Patient denies any tobacco usage or history of. Screenin:15 Abuse screen: Denies threats or abuse. Nutritional screening: No deficits noted. ll1 Tuberculosis screening: No symptoms or risk factors identified. Fall Risk None identified. Gait- Weak (10 pts.). Total King Fall Scale indicates No Risk (0-24 pts). Assessment: 17:31 Reassessment: No changes from previously documented assessment. Patient and/or family ll1 updated on plan of care and expected duration. Pain level reassessed. Patient is alert, oriented x 3, equal unlabored respirations, skin warm/dry/pink. Musculoskeletal: Circulation, motion, and sensation intact. Capillary refill < 3 seconds, Range of motion: intact in all extremities. Vital Signs: 15:37 BP 125 / 90; Pulse 73; Resp 16; Temp 98.3; Pulse Ox 100% ; Weight 83.46 kg; Height 5 ll1 ft. 5 in. (165.10 cm); Pain 7/10; 15:37 Body Mass Index 30.62 (83.46 kg, 165.10 cm) ll1 ED Course: 15:24 Patient arrived in ED. mr 15:39 Triage completed. ll1 15:39 Arm band placed on Patient notified of wait time. ll1 16:46 Knee Right 3 View XRAY In Process Unspecified. EDMS 16:56 Rhiannon Ramirez FNP-C is PSYCHIATRICP. kb 16:56 Colt Gusman MD is Attending Physician. kb 17:16 Patient has correct armband on for positive identification. Bed in low position. Call ll1 light in reach. Side rails up X 1. Cardiac monitoring not applicable on this patient. 17:30 Knee immobilizer applied on right knee. ll1 17:31 No provider procedures requiring assistance completed. Patient did not have IV access ll1 during this emergency room visit. Administered Medications: No medications were administered Outcome: 17:21 Discharge ordered by . kb 17:32 Discharged to home ambulatory. ll1 17:32 Condition: stable 17:32 Discharge instructions given to patient, Instructed on discharge instructions, follow up and referral plans. no drinking with medication, medication usage, Demonstrated understanding of instructions, follow-up care, medications, splint care, Prescriptions given X 2. 17:32 Patient left the ED. ll1 Signatures: Dispatcher [employer] EDMS Rhiannon Ramirez FNP-C FNP-Ckb Rivera, Mary mr Lala Kim, RN RN ll1
[2020-11-01 17:41] VITALS: BP 125/90; TEMP 98.3; O2SAT 100
== END 2020-11-01 17:32 | disposition home or self-care (01) ==
LOC: ER 15:20
DX: M25.561 Pain in right knee (principal); I10 Essential (primary) hypertension
CPT/HCPCS: 99283

== ENCOUNTER 2021-04-22 20:54 | Emergency (ER) | payer BC ==
[2021-04-22] MEDS ORDERED: IBUPROFEN 400 MG TAB ONE (21:56)
[2021-04-22] MEDS ORDERED: IBUPROFEN 200 MG TAB PO ONE (21:56)
--- NOTE | 2021-04-22 22:10 | RAD REPORT ---
EXAM DESCRIPTION: RAD - Knee Right 3 View - 04/22/2021 9:52 pm CLINICAL HISTORY: PAIN COMPARISON: Knee Right 3 View dated 11/01/2020; Knee Right 3 View dated 04/16/2016 FINDINGS: No acute fracture. No malalignment. Mild medial and lateral compartment narrowing. Small k nee effusion which is likely related to underlying degenerative changes. IMPRESSION: No acute osseous abnormality involving the right knee.
--- NOTE | 2021-04-22 22:14 | ER ---
Nurse's Notes [facility] Name: Mi Ortiz Age: 55 yrs Sex: Female : 1965 Arrival Date: 04/22/2021 Time: 20:56 Bed Treatment Private MD: Diagnosis: Right knee pain Presentation: 04/22 21:09 Chief complaint: Patient states: mechanical fall today, has been having right knee pain em for 6 months and today fell on right knee, denies other injuries. Coronavirus screen: Vaccine status: Patient reports being unvaccinated. Ebola Screen: Patient negative for fever greater than or equal to 101.5 degrees Fahrenheit, and additional compatible Ebola Virus Disease symptoms Patient denies exposure to infectious person. Patient denies travel to an Ebola-affected area in the 21 days before illness onset. No symptoms or risks identified at this time. Initial Sepsis Screen: Does the patient meet any 2 criteria? Does the patient have a suspected source of infection? No. Patient's initial sepsis screen is negative. Risk Assessment: Do you want to hurt yourself or someone else? Patient reports no desire to harm self or others. Onset of symptoms was April 22, 2021. 21:09 Method Of Arrival: Ambulatory em 21:09 Acuity: CARMEN 4 em 21:41 Care prior to arrival: None. Mechanism of Injury: Fall. Trauma event details: Injury bc5 occurred: April 22, 2021. Triage Assessment: 21:41 General: Appears in no apparent distress. Behavior is calm, cooperative, appropriate bc5 for age. Pain: Complains of pain in right leg. GROUP DIRECTOR: 21:43 LMP N/A - Post-menopause bc5 Trauma Activation: Physician: ED Physician; Name: ; Notified At: ; Arrived At: Physician: General Surgeon; Name: ; Notified At: ; Arrived At: Physician: Radiology; Name: ; Notified At: ; Arrived At: Physician: Respiratory; Name: ; Notified At: ; Arrived At: Physician: Lab; Name: ; Notified At: ; Arrived At: 21:41 NA bc5 Historical: - Allergies: 21:12 NKA; em - PMHx: 21:12 Arthritis; Hypertension; em - PSHx: 21:12 None; em - Immunization history:: Adult Immunizations up to date. - Social history:: Smoking status: Patient denies any tobacco usage or history of. - Immunization history: Last tetanus immunization: > 10 years ago. Screenin:39 Abuse screen: Denies threats or abuse. Denies injuries from another. Nutritional bc5 screening: No deficits noted. Tuberculosis screening: No symptoms or risk factors identified. Fall Risk Fall in past 12 months (25 points). No secondary diagnosis (0 pts). No IV (0 pts). Ambulatory Aid- None/Bed Rest/Nurse Assist (0 pts). Gait- Normal/Bed Rest/Wheelchair (0 pts) Mental Status- Oriented to own ability (0 pts). Total King Fall Scale indicates Low Risk Score (25-44 pts). Fall prevention measures have been instituted. Frequent Obs/Assesments occuring As available Patient and Family Educated on Fall Prevention Program and strategies. Primary Survey: 21:39 NO uncontrolled hemorrhage observed. A: Airway: patent. Breathing/Chest: Respiratory bc5 pattern: regular, Respiratory effort: spontaneous, unlabored. Circulation: NA. Disability Alert. Exposure/Environment: No obvious injuries are noted at this time. Reassessment Airway Airway Patent Breathing/Chest Respiratory pattern Regular Respiratory effort Spontaneous Unlabored Circulation Other Disability Alert. Vital Signs: 21:09 Pulse 69; Resp 18; Temp 97.8; Pulse Ox 100% on R/A; Weight 83.01 kg; em 21:15 BP 131 / 92; em 22:59 BP 135 / 95; Pulse 75; Resp 15; Temp 98.7(O); Pulse Ox 100% on R/A; Pain 2/10; bc5 [place] Coma Score: 21:40 Eye Response: spontaneous(4). Verbal Response: oriented(5). Motor Response: obeys bc5 commands(6). Total: 15. Trauma Score (Adult): 21:40 Eye Response: spontaneous(1); Verbal Response: oriented(1); Motor Response: obeys bc5 commands(2); Systolic BP: > 89 mm Hg(4); Respiratory Rate: 10 to 29 per min(4); Zach Score: 15; Trauma Score: 12 ED Course: 20:56 Patient arrived in ED. wm 21:12 Triage completed. em 21:12 Arm band placed on. em 21:17 Nida Richardson, RN is Primary Nurse. bc5 21:21 Jarred Godfrey MD is Attending Physician. pkl 21:41 No provider procedures requiring assistance completed. Patient did not have IV access bc5 during this emergency room visit. 21:42 Patient maintains SpO2 saturation greater than 95% on room air. Thermoregulation: NA. bc5 21:43 Patient has correct armband on for positive identification. Call light in reach. bc5 21:52 Knee Right 3 View XRAY In Process Unspecified. EDMS 22:13 Tiago Zimmerman MD is Referral Physician. pkl Administered Medications: 21:38 Drug: Motrin (ibuprofen) 600 mg Route: PO; bc5 23:00 Follow up: Response: Pain is decreased bc5 Intake: 21:40 NA bc5 Outcome: 22:14 Discharge ordered by . pkl 22:57 Discharged to home ambulatory, via wheelchair, with crutches. bc5 22:57 Condition: improved 22:57 Discharge instructions given to patient, Instructed on discharge instructions, follow up and referral plans. medication usage, crutch walking. 23:00 Patient left the ED. bc5 Signatures: Dispatcher [employer] EDLA Jarred Godfrey MD MD pkVirgilio Alvarez, RN RN Abimbola Carranza Bella, RN RN bc5
--- NOTE | 2021-04-22 22:14 | EDPHYS ---
Physician Documentation [facility] Name: Mi Ortiz Age: 55 yrs Sex: Female : 1965 Arrival Date: 04/22/2021 Time: 20:56 Bed Treatment Private MD: ED Physician Jarred Godfrey HPI: 04/22 22:06 This 55 yrs old Female presents to ER via Ambulatory with complaints of Fall pkl Injury. 22:06 Details of fall: The patient fell from an upright position, Heavy object fell on right pkl knee. Onset: The symptoms/episode began/occurred today. Associated injuries: The patient sustained right knee, contusion. Patient said she has pain in her right knee for about 6 months. Pain is now worse after injury today. 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 - Social history:: Smoking status: Patient denies any tobacco usage or history of. - Immunization history: Last tetanus immunization: > 10 years ago. ROS: 22:06 Eyes: Negative for injury, pain, redness, and discharge, ENT: Negative for injury, pkl pain, and discharge, Neck: Negative for injury, pain, and swelling, Cardiovascular: Negative for chest pain, palpitations, and edema, Respiratory: Negative for shortness of breath, cough, wheezing, and pleuritic chest pain, Abdomen/GI: Negative for abdominal pain, nausea, vomiting, diarrhea, and constipation, Back: Negative for injury and pain, : Negative for injury, bleeding, discharge, and swelling, Skin: Negative for injury, rash, and discoloration, Neuro: Negative for headache, weakness, numbness, tingling, and seizure. 22:06 MS/extremity: Positive for contusion, pain, of the right knee. Exam: 22:06 Head/Face: Normocephalic, atraumatic. Eyes: Pupils equal round and reactive to light, pkl extra-ocular motions intact. Lids and lashes normal. Conjunctiva and sclera are non-icteric and not injected. Cornea within normal limits. Periorbital areas with no swelling, redness, or edema. ENT: Nares patent. No nasal discharge, no septal abnormalities noted. Tympanic membranes are normal and external auditory canals are clear. Oropharynx with no redness, swelling, or masses, exudates, or evidence of obstruction, uvula midline. Mucous membranes moist. Neck: Trachea midline, no thyromegaly or masses palpated, and no cervical lymphadenopathy. Supple, full range of motion without nuchal rigidity, or vertebral point tenderness. No Meningismus. Chest/axilla: Normal chest wall appearance and motion. Nontender with no deformity. No lesions are appreciated. Cardiovascular: Regular rate and rhythm with a normal S1 and S2. No gallops, murmurs, or rubs. Normal PMI, no JVD. No pulse deficits. Respiratory: Lungs have equal breath sounds bilaterally, clear to auscultation and percussion. No rales, rhonchi or wheezes noted. No increased work of breathing, no retractions or nasal flaring. Abdomen/GI: Soft, non-tender, with normal bowel sounds. No distension or tympany. No guarding or rebound. No evidence of tenderness throughout. Back: No spinal tenderness. No costovertebral tenderness. Full range of motion. Skin: Warm, dry with normal turgor. Normal color with no rashes, no lesions, and no evidence of cellulitis. Neuro: Awake and alert, GCS 15, oriented to person, place, time, and situation. Cranial nerves II-XII grossly intact. Motor strength 5/5 in all extremities. Sensory grossly intact. Cerebellar exam normal. Normal gait. 22:06 Musculoskeletal/extremity: Extremities: grossly normal except: noted in the right knee: contusion, pain. Vital Signs: 21:09 Pulse 69; Resp 18; Temp 97.8; Pulse Ox 100% on R/A; Weight 83.01 kg; em 21:15 BP 131 / 92; em 22:59 BP 135 / 95; Pulse 75; Resp 15; Temp 98.7(O); Pulse Ox 100% on R/A; Pain 2/10; bc5 Zach Coma Score: 21:40 Eye Response: spontaneous(4). Verbal Response: oriented(5). Motor Response: obeys bc5 commands(6). Total: 15. Trauma Score (Adult): 21:40 Eye Response: spontaneous(1); Verbal Response: oriented(1); Motor Response: obeys bc5 commands(2); Systolic BP: > 89 mm Hg(4); Respiratory Rate: 10 to 29 per min(4); [place] Score: 15; Trauma Score: 12 MDM: 21:21 Patient medically screened. pkl 22:06 Data reviewed: vital signs, nurses notes, radiologic studies, plain films. ED course: pkl Discussed X' rays result with patient. Advised to follow up with Orthopedist in 2 to 3 days. Patient understood instructions. 04/22 21:15 Order name: Knee Right 3 View XRAY; Complete Time: 22:14 em 04/22 22:15 Order name: Jason Wrap; Complete Time: 23:00 pkl 04/22 22:15 Order name: Crutches; Complete Time: 23:00 pkl Administered Medications: 21:38 Drug: Motrin (ibuprofen) 600 mg Route: PO; bc5 23:00 Follow up: Response: Pain is decreased bc5 Disposition Summary: 04/22/21 22:14 Discharge Ordered Location: Home pkl Problem: new pkl Symptoms: are unchanged pkl Condition: Stable pkl Diagnosis - Right knee pain pkl Followup: pkl - With: Tiago Zimmerman MD - When: 2 - 3 days - Reason: Re-evaluation by your physician Discharge Instructions: - Discharge Summary Sheet pkl Forms: - Medication Reconciliation Form pkl - Thank You Letter pkl - Antibiotic Education pkl - Work release form pkl - Prescription Opioid Use pkl Prescriptions: - Diclofenac Sodium 75 mg Oral tablet,delayed release (DR/EC) - take 1 tablet by ORAL route 2 times per day; 20 tablet; Refills: 0, Product pkl Selection Permitted Signatures: Dispatcher [employer] Jarred Nolasco MD MD pkl Virgilio Abel, RN RN Nida Loomis, RN RN bc5
[2021-04-23 00:20] VITALS: O2SAT 100
[2021-04-23 00:23] VITALS: BP 135/95; TEMP 98.7
== END 2021-04-22 23:00 | disposition home or self-care (01) ==
LOC: ER 20:54
DX: S80.01XA Contusion of right knee, initial encounter (principal); W22.8XXA Striking against or struck by other objects, initial encounter; I10 Essential (primary) hypertension
CPT/HCPCS: 99284

== ENCOUNTER 2021-06-25 12:24 | Emergency (ER) | payer BC ==
--- OUTSIDE RECORDS SUMMARY | 2021-06-25 12:28 | XMS REPORT | Continuity of Care Document ---
:1965 Author Organization [facility] t Address [address] [place] [place] [address] Care Team Providers Name Role Phone Doctor Unassigned, [place] Attending Clinician Unavailable Jarett ACNP, E Attending Clinician Pamela CYR Attending Clinician Unavailable Swallows, Speech Modified Barium Attending Clinician Suzanne Mckeon PHD, L Attending Clinician Silas MCKEON Attending Clinician Unavailable Payers Payer Name Policy Type Policy Number Effective Date Expiration Date S ource Problems Condition Condition Condition Status Onset Resolution Last Treating Co mments Source Name Details Category Date Date Treatment Clinician Date BMI BMI Disease Active 2016-08 Univers 29.0-29.9, 29.0-29.9, 1-10 it y of adult adult 00:00: [place] 00 Medical Branch Prolapse Prolapse Disease Active 2016-08 Unive rs of female of female 1-10 ity of bladder, bladder, 00:00: [place] acquired acquired 00 Medica l Branch BMI BMI Disease Active 2016-08 Univers 29.0-29.9, 29.0-29.9, 1-10 it y of adult adult 00:00: [place] 00 Medical Branch Prolapse Prolapse Disease Active Unive rs of of 8-09 ity of anterior anterior 00:00: [place] vaginal vaginal 00 Medical wall wall Branch Obesity Obesity Disease Active 2015-08 Univers 0-06 ity of 00:00: [place] 00 Medical Branch Encounter Encounter Disease Active 2015-08 Uni vers for for 0-06 [place] breast 00 [place] examinatio examinatio Br anch n n Depo-Prove Depo-Prove Disease Active 2014-08 U oswaldo ra ra 1-20 [place] contrace[place]pt [place] status 00 Nv dical Branch Essential Essential Disease Active 2014-08 Uni vers hypertensi hypertensi 20 [place] of [place], benign [place], benign [place] Contracept Contracept Disease Active 2014-08 U oswaldo millere yulisa 1-13 [place] [facility] Acute Acute Disease Active 2014-08 Univers cystitis cystitis 1 ity of without without 00:00: [place] hematuria hematuria 00 [facility] Allergies, Adverse Reactions, Alerts Allergy Allergy Status Severity Reaction(s) Onset Inactive Treating Comm ents Source Name Type Date Date Clinician NO KNOWN Drug Active Univers ALLERGIE Class ity of S [facility] Social History Social Habit Start Date Stop Date Quantity Comments Source Exposure to Not sure [facility] SARS-CoV-2 [facility] (event) Branch Alcohol intake 2020-01-27 2020-01-27 Current [facility] 00:00:00 00:00:00 non-drinker of [facility] alcohol [place] (finding) Tobacco use and 2020-01-27 2020-01-27 Never used Universit y of exposure 00:00:00 00:00:00 [facility] Sex Ass[birth year] At [birth year] Universit y of 00:00:00 00:00:00 [facility] Smoking Status Start Date Stop Date Source Never smoker [facility] Medications Ordered Filled Start Stop Current Ordering Indication Dosage Frequency Signature Comments Components Source Medication Medication Date Date Medication? Clinician (SIG) Name Name pantoprazol Yes [id number] 40mg Take 1 Univers e 40 mg EC 6-22 tablet by ity of tablet 00:00: mouth 00 daily. Medical Branch pantoprazol Yes [id number] 40mg Take 1 Univers e 40 mg EC 6-22 tablet by ity of tablet 00:00: mouth daily. Medical Branch pantoprazol Yes [id number] 40mg Take 1 Univers e 40 mg EC 6-22 tablet by ity of tablet 00:00: mouth [place] 00 daily. Medical Branch pantoprazol 2019-0 Yes [id number] 40mg Take 1 Univers e 40 mg EC 6-22 tablet by ity of tablet 00:00: mouth [place] 00 daily. Medical Branch pantoprazol 2019-0 Yes [id number] 40mg Take 1 Univers e 40 mg EC 6-22 tablet by ity of tablet 00:00: mouth [place] 00 daily. Medical Branch pantoprazol 2019-0 Yes [id number] 40mg Take 1 Univers e 40 mg EC 6-22 tablet by ity of tablet 00:00: mouth [place] 00 daily. Medical Branch traMADOL 2018-0 Yes [id number] 50mg Take 1 Uni vers (ULTRAM) 50 3-10 tablet by ity of mg tablet 00:00: mouth [place] 00 every 6 Medical (six) Branch hours as needed for Pain (scale 7-10). clindamycin 0 Yes [id number] 300mg Take 1 Univers 300 mg 3-10 capsule by ity of capsule 00:00: mouth 3 (three) Medical times Branch daily. traMADOL 0 Yes [id number] 50mg Take 1 Uni vers (ULTRAM) 50 3-10 tablet by ity of mg tablet 00:00: mouth [place] 00 every 6 Medical (six) Branch hours as needed for Pain (scale 7-10). clindamycin 2018-0 Yes [id number] 300mg Take 1 Univers 300 mg 3-10 capsule by ity of capsule 00:00: mouth 3 00 (three) Medical times Branch daily. traMADOL 2018-0 Yes [id number] 50mg Take 1 Uni vers (ULTRAM) 50 3-10 tablet by ity of mg tablet 00:00: mouth [place] 00 every 6 Medical (six) Branch hours as needed for Pain (scale 7-10). clindamycin 2019-0 Yes [id number] 300mg Take 1 Univers 300 mg 3-10 capsule by ity of capsule 00:00: mouth 3 00 (three) Medical times Branch daily. traMADOL 2019-0 Yes [id number] 50mg Take 1 Uni vers (ULTRAM) 50 3-10 tablet by ity of mg tablet 00:00: mouth [place] 00 every 6 Medical (six) Branch hours as needed for Pain (scale 7-10). clindamycin 2019-0 Yes [id number] 300mg Take 1 Univers 300 mg 3-10 capsule by ity of capsule 00:00: mouth 3 00 (three) Medical times Branch daily. traMADOL 2019-0 Yes [id number] 50mg Take 1 Uni vers (ULTRAM) 50 3-10 tablet by ity of mg tablet 00:00: mouth [place] 00 every 6 Medical (six) Branch hours as needed for Pain (scale 7-10). clindamycin 2019-0 Yes [id number] 300mg Take 1 Univers 300 mg 3-10 capsule by ity of capsule 00:00: mouth 3 [place] 00 (three) Medical times Branch daily. traMADOL 2019-0 Yes [id number] 50mg Take 1 Uni vers (ULTRAM) 50 3-10 tablet by ity of mg tablet 00:00: mouth [place] 00 every 6 Medical (six) Branch hours as needed for Pain (scale 7-10). clindamycin 2019-0 Yes [id number] 300mg Take 1 Univers 300 mg 3-10 capsule by ity of capsule 00:00: mouth 3 00 (three) Medical times Branch daily. traMADOL 2019-0 Yes [id number] 50mg Take 1 Uni vers (ULTRAM) 50 3-10 tablet by ity of mg tablet 00:00: mouth [place] 00 every 6 Medical (six) Branch hours as needed for Pain (scale 7-10). clindamycin 2019-0 Yes [id number] 300mg Take 1 Univers 300 mg 3-10 capsule by ity of capsule 00:00: mouth 3 00 (three) Medical times Branch daily. ibuprofen 2018-0 Yes 800mg Take 1 Unive rs 800 mg 9-27 tablet by ity of tablet 00:00: mouth [place] 00 every 8 Medical (eight) Branch hours. diazePAM 2018-0 Yes 5mg Take 1 Univers (VALIUM) 5 9-27 tablet by ity of mg tablet 00:00: mouth 2 [place] 00 (two) Medical times Branch daily as needed for Muscle Spasms. ibuprofen 2018-0 Yes 800mg Take 1 Unive rs 800 mg 9-27 tablet by ity of tablet 00:00: mouth [place] 00 every 8 Medical (eight) Branch hours. diazePAM 2018-0 Yes 5mg Take 1 Univers (VALIUM) 5 9-27 tablet by ity of mg tablet 00:00: mouth 2 00 (two) Medical times Branch daily as needed for Muscle Spasms. ibuprofen 2018-0 Yes 800mg Take 1 Unive rs 800 mg 9-27 tablet by ity of tablet 00:00: mouth [place] 00 every 8 Medical (eight) Branch hours. diazePAM 2018-0 Yes 5mg Take 1 Univers (VALIUM) 5 9-27 tablet by ity of mg tablet 00:00: mouth 2 [place] 00 (two) Medical times Branch daily as needed for Muscle Spasms. ibuprofen 2018-0 Yes 800mg Take 1 Unive rs 800 mg 9-27 tablet by ity of tablet 00:00: mouth [place] 00 every 8 Medical (eight) Branch hours. diazePAM 2018-0 Yes 5mg Take 1 Univers (VALIUM) 5 9-27 tablet by ity of mg tablet 00:00: mouth 2 [place] 00 (two) Medical times Branch daily as needed for Muscle Spasms. ibuprofen 2018-0 Yes 800mg Take 1 Unive rs 800 mg 9-27 tablet by ity of tablet 00:00: mouth [place] 00 every 8 Medical (eight) Branch hours. diazePAM 2018-0 Yes 5mg Take 1 Univers (VALIUM) 5 9-27 tablet by ity of mg tablet 00:00: mouth 2 [place] 00 (two) Medical times Branch daily as needed for Muscle Spasms. ibuprofen 2018-0 Yes 800mg Take 1 Unive rs 800 mg 9-27 tablet by ity of tablet 00:00: mouth [place] 00 every 8 Medical (eight) Branch hours. diazePAM 2018-0 Yes 5mg Take 1 Univers (VALIUM) 5 9-27 tablet by ity of mg tablet 00:00: mouth 2 [place] 00 (two) Medical times Branch daily as needed for Muscle Spasms. ibuprofen 2018-0 Yes 800mg Take 1 Unive rs 800 mg 9-27 tablet by ity of tablet 00:00: mouth [place] 00 every 8 Medical (eight) Branch hours. diazePAM 2018-0 Yes 5mg Take 1 Univers (VALIUM) 5 9-27 tablet by ity of mg tablet 00:00: mouth 2 [place] 00 (two) Medical times Branch daily as needed for Muscle Spasms. hydroCHLORO 2017-1 Yes 25mg Take 1 Univ ers thiazide 25 1-07 tablet by ity of mg tablet 00:00: mouth [place] 00 every Medical morning. Branch hydroCHLORO 2017-1 Yes 25mg Take 1 Univ ers thiazide 25 1-07 tablet by ity of mg tablet 00:00: mouth [place] 00 every Medical morning. Branch hydroCHLORO 2016-08 Yes 25mg Take 1 Univ ers thiazide 25 1-07 tablet by ity of mg tablet 00:00: mouth [place] 00 every Medical morning. Branch hydroCHLORO 2016-08 Yes 25mg Take 1 Univ ers thiazide 25 1-07 tablet by ity of mg tablet 00:00: mouth [place] 00 every Medical morning. Branch hydroCHLORO 2016-08 Yes 25mg Take 1 Univ ers thiazide 25 1-07 tablet by ity of mg tablet 00:00: mouth [place] 00 every Medical morning. Branch hydroCHLORO 2016-08 Yes 25mg Take 1 Univ ers thiazide 25 1-07 tablet by ity of mg tablet 00:00: mouth [place] 00 every Medical morning. Branch hydroCHLORO 2016-08 Yes 25mg Take 1 Univ ers thiazide 25 1-07 tablet by ity of mg tablet 00:00: mouth [place] 00 every Medical morning. Branch Immunizations Ordered Filled Immunization Date Status Comments [facility] Immunization Name Name TDAP (ADACEL) 2015-02-04 Completed University of VACCINE 00:00:00 [facility] TDAP (ADACEL) 2015-02-04 Completed University of VACCINE 00:00:00 [facility] TDAP (ADACEL) 2015-02-04 Completed University of VACCINE 00:00:00 [facility] TDAP (ADACEL) 2015-02-04 Completed University of VACCINE 00:00:00 [facility] TDAP (ADACEL) 2015-02-04 Completed University of VACCINE 00:00:00 [facility] TDAP (ADACEL) 2015-02-04 Completed University of VACCINE 00:00:00 [facility] TDAP (ADACEL) 2015-02-04 Completed University of VACCINE 00:00:00 [facility] Vital Signs Vital Name Observation Time Observation Value Comments Source Systolic blood 2020-01-27 15:55:00 126 mm[Hg] Univer sity of pressure [facility] Diastolic blood 2020-01-27 15:55:00 89 mm[Hg] Unive rsity of pressure [facility] Heart rate 2020-01-27 15:55:00 83 /min General acute hospital Body temperature 2020-01-27 15:55:[address] [facility] Body height 2020-01-27 15:55:00 165.1 cm General acute hospital Body weight 2020-01-27 15:55:00 87.907 kg Universi ty of [facility] BMI 2020-01-27 15:55:00 32.25 kg/m2 Universi ty of [facility] Systolic blood 2020-01-27 15:55:00 126 mm[Hg] Univer sity of pressure [facility] Diastolic blood 2020-01-27 15:55:00 89 mm[Hg] Unive rsity of pressure [facility] Heart rate 2020-01-27 15:55:00 83 /min Universi ty of [facility] Body temperature 2020-01-27 15:55:00 36.33 [place] Univ ersity of [facility] Body height 2020-01-27 15:55:00 165.1 cm Universi ty of [facility] Body weight 2020-01-27 15:55:[address] [facility] BMI 2020-01-27 15:55:00 32.25 kg/m2 Universi ty [facility] Procedures Procedure Date / Time Performed Performing Clinician [facility] EXTERNAL PROVIDER 2021-02-17 05:01:00 Doctor Unassigned, No [facility] Branch EXTERNAL PROVIDER 2020-03-02 05:01:00 Doctor Unassigned, No [facility] Name Medical [place] ASSIGNMENT OF BENEFITS 2020-01-27 15:36:07 Doctor Unassigned, No [facility] Encounters Start End Encounter Admission Attending Care Care Encounter Source Date/Time Date/Time Type Type Clinicians Facility Department ID 2021-02-17 2021-02-17 Orders Doctor ECHOLS [id number] Univers 00:00:00 00:00:00 Only Unassigned, EUNICE 350.1.13.10 ity of [place] [facility] 4.2.7.2.686 Isaías as [phone] [facility] 009 Branch 2021-02-09 2021-02-09 Telephone ANABELLA Cyr [id number] Univers 00:00:00 00:00:00 Annmarie E Y HEALTH 350.1.13.10 ity of [place] 4[place]2.[place] [phone] [facility] 071 Branch 2020-03-02 2020-03-02 Orders Doctor ONESIMO 1.2.840.114 [id number] 00:00:00 00:00:00 Only Unassigned, EUNICE [id number] [place] [facility] 4.2.7.2.686 [id number] 2020-03-02 2020-03-02 Orders Doctor ONESIMO 1.2.840.114 [id number] Univers 00:00:00 00:00:00 Only Unassigned, EUNICE [id number] ity of [place] [facility] 4.2.7.2.686 Isaías as [id number] [address] 2020-02-24 2020-02-24 [facility] [id number] Univers 10:30:00 10:30:00 ANNMARIE whitman o [facility] 2020-02-24 2020-02-24 Outpatient R [facility] [id number] Univers 10:30:00 10:30:00 ANNMARIE j carlos o [facility] 2020-02-13 2020-02-13 Ancillary Swallows, UNIVERSIT 1.2.840.114 [id number] 11:00:12 11:30:12 Visit Gal Speech Y 350.1.13.10 Modified NATIONAL 4.2.7.2.686 [place] BANK [id number] [facility]. 145 2020-02-13 2020-02-13 Ancillary Swallows, Gal Speech Modifie d Barium UNIVERSIT 1.2.840.114 [id number] Univers 11:00:12 11:30:12 Visit Yee Mckeon 350.1.13.10 ity of NATIONAL 4.2.7.2.686 Isaías as [id number] [facility] [place] 2020-02-13 2020-02-13 [facility] [id number] Univers 09:00:00 09:00:00 ANNMARIE harrietty o [facility] 2020-02-13 2020-02-13 [facility] [id number] Univers 09:00:00 09:00:00 YEE whitman of [facility] 2020-01-27 2020-01-27 Office [facility], [facility] [id number] 10:43:44 11:39:23 Visit [facility] HEALTH [id number] CLINICS 4.2.7.2.686 [id number] [facility] 2020-01-27 2020-01-27 Office ANABELLA Cyr [id number] [facility] 10:43:44 11:39:23 Visit Annmarie E Y HEALTH [id number] ity of CL[place]ICS 4[place].2.[place] [id number] [place] [address] Branch 2020-01-27 2020-01-27 [facility] [id number] Univers 10:30:00 10:30:00 ANNMARIE [id number] j carlos garcia [facility] 2020-01-27 2020-01-27 [facility] [id number] Univers 10:30:00 10:30:00 ANNMARIE partida [facility] 2020-01-27 2020-01-27 Orders Doctor ONESIMO 1.2.840.114 [id number] Univers 00:00:00 00:00:00 Only Unassigned, EUNICE 350.1.13.10 ity of [place] [facility] 4.2.7.2.686 Isaías as [phone] [place] [address] Branch Results This patient has no known results.
[2021-06-25 13:09] LABS: Urine Bacteria <20 /HPF (<20); Urine RBC <5 /HPF (NONE SEEN)
--- NOTE | 2021-06-25 14:40 | RAD REPORT ---
EXAM DESCRIPTION: CT - Stone Protocol - 06/25/2021 2:19 pm CLINICAL HISTORY: Abdominal pain. COMPARISON: August 2020 TECHNIQUE: Computed axial tomography of the abdomen pelvis was obtained without oral or IV contrast. Lack of IV and oral contrast limits evaluation of solid organs, bowel, and vessels. Coronal reformat leroy images were obtained and reviewed. All CT scans are performed using dose optimization technique as appropriate and may include automated exposure control or mA/KV adjustment according to patient size. FINDINGS: A renal calculus is not seen. An ureteral calculus is not noted. A bladder calculus is not present. The liver, spleen, pancreas and adrenals appear grossly normal There is no evidence of diverticulitis. A hysterectomy. No adnexal mass IMPRESSION: Negative for a genitourinary calculus
--- NOTE | 2021-06-25 14:42 | ER ---
Nurse's Notes [facility] Name: Mi Ortiz Age: 55 yrs Sex: Female : 1965 Arrival Date: 06/25/2021 Time: 12:29 Bed Treatment Private MD: Diagnosis: Dysuria Presentation: 06/25 12:35 Chief complaint: Patient states: pain when she urinates and feels pressure inside her iw pelvic region X 4days , vomited yesterday and feels nauseous after she eats. Coronavirus screen: At this time, the client does not indicate any symptoms associated with coronavirus-19. Ebola Screen: Patient negative for fever greater than or equal to 101.5 degrees Fahrenheit, and additional compatible Ebola Virus Disease symptoms Patient denies exposure to infectious person. Patient denies travel to an Ebola-affected area in the 21 days before illness onset. No symptoms or risks identified at this time. Initial Sepsis Screen: Does the patient meet any 2 criteria? No. Patient's initial sepsis screen is negative. Does the patient have a suspected source of infection? No. Patient's initial sepsis screen is negative. Risk Assessment: Do you want to hurt yourself or someone else?. Onset of symptoms was June 21, 2021. 12:35 Method Of Arrival: Ambulatory iw 12:35 Acuity: CARMEN 3 iw Historical: - Allergies: 12:37 NKA; iw - Home Meds: 12:37 fluoxetine 20 mg Oral cap 1 cap once daily [Active]; lisinopril-hydrochlorothiazide iw 10-12.5 mg Oral tab 1 tab twice a day [Active]; - PMHx: 12:37 Arthritis; Hypertension; iw - PSHx: 12:37 hysterectomy; iw - Immunization history:: Client reports receiving the 2nd dose of the Covid vaccine. - Social history:: Smoking status: Patient denies any tobacco usage or history of. Screenin:02 Abuse screen: Denies threats or abuse. Denies injuries from another. Nutritional aj1 screening: No deficits noted. Tuberculosis screening: No symptoms or risk factors identified. Assessment: 13:02 General: Appears in no apparent distress. uncomfortable, Behavior is calm, cooperative, aj1 appropriate for age. Pain: Complains of pain in pelvis Quality of pain is described as pressure. Neuro: Level of Consciousness is awake, alert, obeys commands, Oriented to person, place, time, situation. Cardiovascular: Patient's skin is warm and dry. Respiratory: Airway is patent Respiratory effort is even, unlabored, Respiratory pattern is regular, symmetrical. GI: Abdomen is flat, non-distended, Reports nausea, vomiting, Patient currently denies fever. : Reports burning with urination, pelvic pressure. EENT: No signs and/or symptoms were reported regarding the EENT system. Derm: No signs and/or symptoms reported regarding the dermatologic system. Skin is pink, warm \T\ dry. normal. Musculoskeletal: No signs and/or symptoms reported regarding the musculoskeletal system. Circulation, motion, and sensation intact. 14:06 Reassessment: Patient appears in no apparent distress at this time. No changes from aj1 previously documented assessment. Patient and/or family updated on plan of care and expected duration. Pain level reassessed. Patient is alert, oriented x 3, equal unlabored respirations, skin warm/dry/pink. 15:09 Reassessment: Patient appears in no apparent distress at this time. No changes from aj1 previously documented assessment. Patient and/or family updated on plan of care and expected duration. Pain level reassessed. Patient is alert, oriented x 3, equal unlabored respirations, skin warm/dry/pink. Vital Signs: 12:35 BP 107 / 79; Pulse 78; Resp 16; Temp 98.1; Pulse Ox 98% on R/A; iw ED Course: 12:29 Patient arrived in ED. mr 12:37 Triage completed. iw 12:38 Arm band placed on. iw 12:40 Rhiannon Ramirez FNP-C [facility] kb 12:40 Pedro Pablo Ralph MD is Attending Physician. kb 13:01 Anisa Mott, RN is Primary Nurse. aj1 13:02 Patient has correct armband on for positive identification. Bed in low position. Call aj1 light in reach. Side rails up X 1. 13:02 No provider procedures requiring assistance completed. aj1 13:46 TRANSLATE IVORIAN SPEAKING ONLY. [facility] 14:18 CT Stone Protocol In Process Unspecified. EDMS 15:09 Patient did not have IV access during this emergency room visit. aj1 Administered Medications: No medications were administered Outcome: 14:42 Discharge ordered by . kb 15:12 Discharged to home ambulatory. aj1 15:12 Condition: good 15:12 Discharge instructions given to patient, Instructed on discharge instructions, follow up and referral plans. medication usage, Demonstrated understanding of instructions, follow-up care, medications, Prescriptions given X 1. 15:12 Patient left the ED. aj1 Signatures: Dispatcher [employer] EDGA Rhiannon Ramirez, PER DIEM NURSEClaytonC RAFAEL-Anisa Ward RN RN aj1 Wendy Flynn Irene, RN RN Maryjane Sparks [facility] Corrections: (The following items were deleted from the chart) 12:37 12:35 Chief complaint: Patient states: pain when she urinates and feels pressure inside iw her pelvic region X 4days iw
--- NOTE | 2021-06-25 14:42 | EDPHYS ---
Physician Documentation [facility] Name: Mi Ortiz Age: 55 yrs Sex: Female : 1965 Arrival Date: 06/25/2021 Time: 12:29 Bed Treatment Private MD: ED Physician Pedro Pablo Ralph HPI: 06/25 15:01 This 55 yrs old Female presents to ER via Ambulatory with complaints of kb Urinary Problem. 15:01 The patient presents with urinary symptoms, dysuria. Onset: The symptoms/episode kb began/occurred 4 day(s) ago. Modifying factors: The symptoms are alleviated by nothing, the symptoms are aggravated by urinating. Associated signs and symptoms: Pertinent positives: dysuria, Pertinent negatives: fever. Severity of symptoms: At their worst the symptoms were moderate, in the emergency department the symptoms are unchanged. The patient has not experienced similar symptoms in the past. The patient has not recently seen a physician. Historical: - Allergies: 12:37 NKA; iw - Home Meds: 12:37 fluoxetine 20 mg Oral cap 1 cap once daily [Active]; lisinopril-hydrochlorothiazide iw 10-12.5 mg Oral tab 1 tab twice a day [Active]; - PMHx: 12:37 Arthritis; Hypertension; iw - PSHx: 12:37 hysterectomy; iw - Immunization history:: Client reports receiving the 2nd dose of the Covid vaccine. - Social history:: Smoking status: Patient denies any tobacco usage or history of. ROS: 15:00 Constitutional: Negative for fever, chills, and weight loss. kb 15:00 : Positive for burning with urination. 15:00 All other systems are negative. Exam: 15:01 Constitutional: This is a well developed, well nourished patient who is awake, alert, kb and in no acute distress. Head/Face: Normocephalic, atraumatic. ENT: Moist Mucous membranes Respiratory: Respirations even and unlabored. No increased work of breathing, no retractions or nasal flaring. Abdomen/GI: Soft, non-tender. No distention Skin: Warm, dry with normal turgor. Normal color. MS/ Extremity: Pulses equal, no cyanosis. Neurovascular intact. Full, normal range of motion. Neuro: Awake and alert, GCS 15, oriented to person, place, time, and situation. Moves all extremities. Normal gait. Psych: Awake, alert, with orientation to person, place and time. Behavior, mood, and affect are within normal limits. Vital Signs: 12:35 BP 107 / 79; Pulse 78; Resp 16; Temp 98.1; Pulse Ox 98% on R/A; iw MDM: 12:40 Patient medically screened. kb 15:00 Data reviewed: vital signs, nurses notes. Data interpreted: Pulse oximetry: on room air kb is 98 %. Interpretation: normal. Counseling: I had a detailed discussion with the patient and/or guardian regarding: the historical points, exam findings, and any diagnostic results supporting the discharge/admit diagnosis, lab results, radiology results, the need for outpatient follow up, a family practitioner, to return to the emergency department if symptoms worsen or persist or if there are any questions or concerns that arise at home. 06/25 12:40 Order name: Urine Microscopic Only; Complete Time: 13:24 kb 06/25 13:10 Order name: Urine Culture [facility] 06/25 12:40 Order name: Urine Dipstick-Ancillary (obtain specimen); Complete Time: 12:49 kb 06/25 13:45 Order name: CT Stone Protocol; Complete Time: 14:41 kb Administered Medications: No medications were administered Disposition: 17:58 Co-signature as Attending Physician, Pedro Pablo Ralph MD I agree with the assessment and kdr plan of care. Disposition Summary: 06/25/21 14:42 Discharge Ordered Location: Home kb Condition: Stable kb Diagnosis - Dysuria kb Followup: kb - With: Emergency Department - When: As needed - Reason: Worsening of condition Followup: kb - With: Private Physician - When: 2 - 3 days - Reason: Recheck today's complaints, Continuance of care, Re-evaluation by your physician Discharge Instructions: - Discharge Summary Sheet kb - Dysuria kb Forms: - Medication Reconciliation Form kb - Thank You Letter kb - Antibiotic Education kb - Prescription Opioid Use kb Prescriptions: - Pyridium 200 mg Oral Tablet - take 1 tablet by ORAL route every 8 hours for 3 days; 9 tablet; Refills: 0, kb Product Selection Permitted Signatures: Dispatcher [employer] [facility] Rhiannon Ramirez, RAFAEL-C INFRASTRUCTURE MANAGER-Ckb Rittger, Pedro Pablo, MD MD kdr Taj, Mirela, RN RN iw
[2021-06-25 15:32] VITALS: BP 107/79; TEMP 98.1; O2SAT 98
== END 2021-06-25 15:12 | disposition home or self-care (01) ==
LOC: ER 12:24
DX: R30.0 Dysuria (principal); I10 Essential (primary) hypertension
CPT/HCPCS: 74176; 76377; 81015; 87086; 87088; 99283

== ENCOUNTER 2021-08-28 10:37 | Emergency (ER) | payer BC ==
--- OUTSIDE RECORDS SUMMARY | 2021-08-28 10:40 | XMS REPORT | Continuity of Care Document ---
:1965 Author Organization [facility] t Address [address] [place] [address] Care Team Providers Name Role Phone Doctor Unassigned, [place] Attending Clinician Unavailable Jarett ACNP, E Attending [...] 1-10 it y of adult adult 00:00: [place] 00 Medical Branch Prolapse Prolapse Disease Active [...] [place]isa status yulisa status 00 Wi dical Branch Essential Essential Disease Active 2014-08 Uni vers hypertensi hypertensi 20 it [place] of [place], benign [place], benign [place] Contracept Contracept Disease Active 2014-08 U oswaldo millere yulisa 1-13 [place] of management [place] [facility] Acute Acute Disease Active 2014-08 Univers cystitis cystitis 1 ity of without without 00:00: [place] hematuria hematuria 00 [facility] Allergies, Adverse Reactions, Alerts Allergy Allergy Status Severity Reaction(s) Onset Inactive Treating Comm ents Source Name Type Date Date Clinician NO KNOWN Drug Active Univers ALLERGIE Class ity of S [facility] Social History Social Habit Start Date Stop Date Quantity Comments Source Exposure to Not sure [facility] SARS-CoV-2 [facility] (event) Branch Alcohol intake 2020-01-27 2020-01-27 Current [facility] 00:00:00 00:00:00 non-drinker of [facility] alcohol [place] (finding) Tobacco use and 2020-01-27 2020-01-27 Never used Universit y of exposure 00:00:00 00:00:00 [facility] Sex Ass[birth year] At [birth year] Universit y of 00:00:00 00:00:00 [facility] Smoking Status Start Date Stop Date Source Never smoker [facility] Medications Ordered Filled Start Stop Current Ordering Indication Dosage Frequency Signature Comments Components Source Medication Medication Date Date Medication? Clinician (SIG) Name Name pantoprazol Yes [id number] 40mg Take 1 Univers e 40 mg EC 6-22 tablet by ity of tablet 00:00: mouth 00 daily. Medical Branch pantoprazol Yes [id number] 40mg Take 1 Univers e 40 mg EC 6-22 tablet by ity of tablet 00:00: mouth daily. Medical Branch pantoprazol Yes [id number] 40mg Take 1 Univers e 40 mg EC 6-22 tablet by ity of tablet 00:00: mouth [place] 00 daily. Medical Branch pantoprazol 2019-0 Yes [id number] 40mg Take 1 Univers e 40 mg EC 6-22 tablet by ity of tablet 00:00: mouth [place] 00 daily. Medical Branch pantoprazol 2019-0 Yes [id number] 40mg Take 1 Univers e 40 mg EC 6-22 tablet by ity of tablet 00:00: mouth [place] 00 daily. Medical Branch pantoprazol 2019-0 Yes [id number] 40mg Take 1 Univers e 40 mg EC 6-22 tablet by ity of tablet 00:00: mouth [place] 00 daily. Medical Branch traMADOL 2018-0 Yes [id number] 50mg Take 1 Uni vers (ULTRAM) 50 3-10 tablet by ity of mg tablet 00:00: mouth [place] 00 every 6 Medical (six) Branch hours as needed for Pain (scale 7-10). clindamycin 0 Yes [id number] 300mg Take 1 Univers 300 mg 3-10 capsule by ity of capsule 00:00: mouth 3 (three) Medical times Branch daily. traMADOL 0 Yes [id number] 50mg Take 1 Uni vers (ULTRAM) 50 3-10 tablet by ity of mg tablet 00:00: mouth [place] 00 every 6 Medical (six) Branch hours as needed for Pain (scale 7-10). clindamycin 2018-0 Yes [id number] 300mg Take 1 Univers 300 mg 3-10 capsule by ity of capsule 00:00: mouth 3 00 (three) Medical times Branch daily. traMADOL 2018-0 Yes [id number] 50mg Take 1 Uni vers (ULTRAM) 50 3-10 tablet by ity of mg tablet 00:00: mouth [place] 00 every 6 Medical (six) Branch hours as needed for Pain (scale 7-10). clindamycin 2019-0 Yes [id number] 300mg Take 1 Univers 300 mg 3-10 capsule by ity of capsule 00:00: mouth 3 00 (three) Medical times Branch daily. traMADOL 2019-0 Yes [id number] 50mg Take 1 Uni vers (ULTRAM) 50 3-10 tablet by ity of mg tablet 00:00: mouth [place] 00 every 6 Medical (six) Branch hours as needed for Pain (scale 7-10). clindamycin 2019-0 Yes [id number] 300mg Take 1 Univers 300 mg 3-10 capsule by ity of capsule 00:00: mouth 3 00 (three) Medical times Branch daily. traMADOL 2019-0 Yes [id number] 50mg Take 1 Uni vers (ULTRAM) 50 3-10 tablet by ity of mg tablet 00:00: mouth [place] 00 every 6 Medical (six) Branch hours as needed for Pain (scale 7-10). clindamycin 2019-0 Yes [id number] 300mg Take 1 Univers 300 mg 3-10 capsule by ity of capsule 00:00: mouth 3 [place] 00 (three) Medical times Branch daily. traMADOL 2019-0 Yes [id number] 50mg Take 1 Uni vers (ULTRAM) 50 3-10 tablet by ity of mg tablet 00:00: mouth [place] 00 every 6 Medical (six) Branch hours as needed for Pain (scale 7-10). clindamycin 2019-0 Yes [id number] 300mg Take 1 Univers 300 mg 3-10 capsule by ity of capsule 00:00: mouth 3 00 (three) Medical times Branch daily. traMADOL 2019-0 Yes [id number] 50mg Take 1 Uni vers (ULTRAM) 50 3-10 tablet by ity of mg tablet 00:00: mouth [place] 00 every 6 Medical (six) Branch hours as needed for Pain (scale 7-10). clindamycin 2019-0 Yes [id number] 300mg Take 1 Univers 300 mg 3-10 [...] Immunizations Ordered Filled Immunization Date Status Comments [facility] e Immunization Name Name TDAP (ADACEL) 2015-02-04 Completed University of VACCINE 00:00:00 [facility] TDAP (ADACEL) 2015-02-04 Completed University of VACCINE 00:00:00 [facility] TDAP (ADACEL) 2015-02-04 Completed University of VACCINE 00:00:00 [facility] TDAP (ADACEL) 2015-02-04 Completed University of VACCINE 00:00:00 [facility] TDAP (ADACEL) 2015-02-04 Completed University of VACCINE 00:00:00 [facility] TDAP (ADACEL) 2015-02-04 Completed University of VACCINE 00:00:00 [facility] TDAP (ADACEL) 2015-02-04 Completed University of VACCINE 00:00:00 [facility] Vital Signs Vital Name Observation Time Observation Value Comments Source Systolic blood 2020-01-27 15:55:00 126 mm[Hg] Univer sity of pressure [facility] Diastolic blood 2020-01-27 15:55:00 89 mm[Hg] Unive rsity of pressure [facility] Heart rate 2020-01-27 15:55:00 83 /min [facility] Body temperature 2020-01-27 15:55:00 36.33 Rossi Univ ersity [facility] Body height 2020-01-27 15:55:00 165.1 cm [facility] Body weight 2020-01-27 15:55:00 87.907 kg Universi ty of [facility] BMI 2020-01-27 15:55:00 32.25 kg/m2 Universi ty of [facility] Systolic blood 2020-01-27 15:55:00 126 mm[Hg] Univer sity of pressure [facility] Diastolic blood 2020-01-27 15:55:00 89 mm[Hg] Unive rsity of pressure [facility] Heart rate 2020-01-27 15:55:00 83 /min Universi ty of [facility] Body temperature 2020-01-27 15:55:00 36.33 Rossi Univ ersity of [facility] Body height 2020-01-27 15:55:00 165.1 cm Universi ty of [facility] Body weight 2020-01-27 15:55:00 87.907 kg Universi ty [facility] BMI 2020-01-27 15:55:00 32.25 kg/m2 Universi ty [facility] Procedures Procedure Date / Time Performed Performing Clinician [facility] e EXTERNAL PROVIDER 2021-02-17 05:01:00 Doctor Unassigned, No [facility] Medical Branch EXTERNAL PROVIDER 2020-03-02 05:01:00 Doctor Unassigned, No [facility] Name Medical [place] ASSIGNMENT OF BENEFITS 2020-01-27 15:36:07 Doctor Unassigned, No [facility] Encounters Start End Encounter Admission Attending Care Care Encounter Source Date/Time Date/Time Type Type Clinicians Facility Department ID 2021-02-17 2021-02-17 Orders Doctor ECHOLS [id number] Univers 00:00:00 00:00:00 Only Unassigned, EUNICE [id number] ity of [place] [facility] [id number] Isaías as [id number] [facility] 009 Branch 2021-02-09 2021-02-09 Telephone ANABELLA Cyr [id number] Univers 00:00:00 00:00:00 Annmarie E Y HEALTH [id number] ity of [id number] [id number] [facility] 071 Branch 2020-03-02 2020-03-02 Orders Doctor ONESIMO [id number] 00:00:00 00:00:00 Only Unassigned, EUNICE [id number] [place] [facility] [id number] 2020-03-02 2020-03-02 Orders Doctor ONESIMO [id number] Univers 00:00:00 00:00:00 Only Unassigned, EUNICE [id number] ity of [place] [facility] [id number] Isaías as [id number] [address] 2020-02-24 2020-02-24 [facility] [id number] Univers 10:30:00 10:30:00 ANNMARIE whitman o [facility] 2020-02-24 2020-02-24 Outpatient R [facility] [id number] Univers 10:30:00 10:30:00 ANNMARIE j carlos o [facility] 2020-02-13 2020-02-13 Ancillary Swallows, UNIVERSIT [id number] 11:00:12 11:30:12 Visit Gal Speech Y [id number] Modified NATIONAL [id number] [facility] [id number] [facility]. 145 2020-02-13 2020-02-13 Ancillary Swallows, Gal Speech Modifie d Barium UNIVERSIT [id number] Univers 11:00:12 11:30:12 Visit Yee Mckeon [id number] ity of NATIONAL [id number] Isaías as BANK [phone] [facility] [place] 2020-02-13 2020-02-13 [facility] [id number] Univers 09:00:00 09:00:00 ANNMARIE harrietty o [facility] 2020-02-13 2020-02-13 [facility] [id number] Univers 09:00:00 09:00:00 YEE whitman of [facility] 2020-01-27 2020-01-27 Office [facility], [facility] [id number] 10:43:44 11:39:23 Visit [facility] HEALTH [id number] CLINICS [id number] [facility] 2020-01-27 2020-01-27 Office ANABELLA Cyr [id number] [facility] 10:43:44 11:39:23 Visit Annmarie E Y HEALTH [id number] ity of [id number] [id number] [place] [address] Branch 2020-01-27 2020-01-27 [facility] [id number] Univers 10:30:00 10:30:00 ANNMARIE [id number] j carlos garcia [facility] 2020-01-27 2020-01-27 Outpatient [facility] [id number] Univers 10:30:00 10:30:00 ANNMARIE partida [facility] 2020-01-27 2020-01-27 Orders Doctor ONESIMO [id number] [id number] Univers 00:00:00 00:00:00 Only Unassigned, EUNICE [id number] ity of [place] [facility] [id number] Isaías as [phone] [place] [address] Branch Results This patient has no known results.
--- NOTE | 2021-08-28 10:59 | ER ---
Nurse's Notes [facility] Name: Mi Ortiz Age: 56 yrs Sex: Female : 1965 Arrival Date: 08/28/2021 Time: 10:40 Bed 10 Private MD: Diagnosis: Pain in right knee Presentation: 08/28 10:51 Chief complaint: Patient states: C/o R upper leg pain x 5 days. Denies recent trauma. ic1 States she usually has pain in that leg. Coronavirus screen: Vaccine status: Patient reports receiving the 2nd dose of the covid vaccine. Ebola Screen: No symptoms or risks identified at this time. Initial Sepsis Screen: Does the patient meet any 2 criteria? No. Patient's initial sepsis screen is negative. Does the patient have a suspected source of infection? No. Patient's initial sepsis screen is negative. Risk Assessment: Do you want to hurt yourself or someone else? Patient reports no desire to harm self or others. Onset of symptoms is unknown. 10:51 Method Of Arrival: Ambulatory ic1 10:51 Acuity: CARMEN 4 ic1 Triage Assessment: 10:53 General: Appears in no apparent distress. comfortable, Behavior is calm, cooperative. ic1 Pain: Complains of pain in right leg. 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 - Social history:: Smoking status: Patient denies any tobacco usage or history of. - Family history:: not pertinent. - Hospitalizations: : No recent hospitalization is reported. Screenin:08 Abuse screen: Denies threats or abuse. Denies injuries from another. Nutritional roque screening: No deficits noted. Tuberculosis screening: No symptoms or risk factors identified. Fall Risk None identified. Vital Signs: 10:51 BP 113 / 62; Pulse 71; Resp 16; Temp 97.5(T); Pulse Ox 100% on R/A; Weight 88 kg (M); ic1 ED Course: 10:40 Patient arrived in ED. as 10:48 Colt Gusman MD is Attending Physician. rn 10:53 Triage completed. ic1 11:08 Patient has correct armband on for positive identification. Bed in low position. roque 11:08 Arm band placed on. roque 11:08 No provider procedures requiring assistance completed. roque 11:15 Patient did not have IV access during this emergency room visit. roque Administered Medications: 11:15 Drug: Ketorolac 30 mg Route: IM; Site: right gluteus; roque 11:15 Follow up: Response: No adverse reaction roque Outcome: 10:59 Discharge ordered by . rn 11:15 Discharged to home roque 11:15 Condition: good 11:15 Discharge instructions given to patient, Prescriptions given X 1. 11:16 Patient left the ED. roque Signatures: Eliana Sparks as Colt Gusman MD MD rn Au-StagerNikki RN RN roque Cynthia Arellano RN RN ic1
--- NOTE | 2021-08-28 10:59 | EDPHYS ---
Physician Documentation [facility] Name: Mi Ortiz Age: 56 yrs Sex: Female : 1965 Arrival Date: 08/28/2021 Time: 10:40 Bed 10 Private MD: ED Physician Colt Gusman HPI: 08/28 10:56 This 56 yrs old Female presents to ER via Ambulatory with complaints of Leg rn Pain. 10:56 The patient presents with pain, that is chronic. The complaints affect the right knee. rn Onset: The symptoms/episode began/occurred at an unknown time. Modifying factors: The symptoms are alleviated by nothing. the symptoms are aggravated by movement, weight bearing, bending knee. Associated signs and symptoms: Pertinent negatives fever, numbness, rash, tingling, warmth, weakness. Severity of symptoms: At their worst the symptoms were moderate, in the emergency department the symptoms are unchanged. The patient has experienced similar episodes in the past, chronically. The patient has been recently seen by a physician:. Patient reports chronic knee pain, has been seen multiple times for this in the past. Denies any new injury or symptoms. Reports lately has been causing more pain and pain is shooting upward toward the right hip. Hurts to walk and bend right knee. No warmth or fever.. 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 - Social history:: Smoking status: Patient denies any tobacco usage or history of. - Family history:: not pertinent. - Hospitalizations: : No recent hospitalization is reported. ROS: 10:56 Constitutional: Negative for fever, chills, and weight loss, Cardiovascular: Negative rn for chest pain, palpitations, and edema, Respiratory: Negative for shortness of breath, cough, wheezing, and pleuritic chest pain, Abdomen/GI: Negative for abdominal pain, nausea, vomiting, diarrhea, and constipation, Back: Negative for injury and pain, MS/Extremity: Positive for right knee pain Skin: Negative for injury, rash, and discoloration, Neuro: Negative for headache, weakness, numbness, tingling, and seizure. Exam: 10:56 Constitutional: This is a well developed, well nourished patient who is awake, alert, rn and in no acute distress. Skin: Warm, dry MS/ Extremity: Pulses equal, no cyanosis. Neurovascular intact. Full, passive range of motion. Mild pain with active range of motion of right knee. No warmth or erythema of the knee. No focal bony tenderness. Equal circumference. Vital Signs: 10:51 BP 113 / 62; Pulse 71; Resp 16; Temp 97.5(T); Pulse Ox 100% on R/A; Weight 88 kg (M); ic1 MDM: 10:48 Patient medically screened. rn 10:56 Differential diagnosis: tendonitis, arthritis, chronic knee pain. Data reviewed: vital rn signs, nurses notes, old medical records, and as a result, I will discharge patient. Counseling: I had a detailed discussion with the patient and/or guardian regarding: the historical points, exam findings, and any diagnostic results supporting the discharge/admit diagnosis, the need for outpatient follow up, to return to the emergency department if symptoms worsen or persist or if there are any questions or concerns that arise at home. Special discussion: I discussed with the patient/guardian in detail that at this point there is no indication for admission to the hospital. It is understood, however, that if the symptoms persist or worsen the patient needs to return immediately for re-evaluation. Further emergent ED testing is not indicated at this point in time. I discussed with the patient/guardian in detail the need to arrange with the PCP or specialist further outpatient testing, MRI, Based on the history and exam findings, there is no indication for further emergent testing or inpatient evaluation. I discussed with the patient/guardian the need to see the orthopedic surgeon for further evaluation of the symptoms. Administered Medications: 11:15 Drug: Ketorolac 30 mg Route: IM; Site: right gluteus; roque 11:15 Follow up: Response: No adverse reaction roque Disposition Summary: 08/28/21 10:59 Discharge Ordered Location: Home rn Problem: chronic rn Symptoms: have improved rn Condition: Stable rn Diagnosis - Pain in right knee rn Followup: rn - With: Private Physician - When: As needed - Reason: Recheck today's complaints, Re-evaluation by your physician Discharge Instructions: - Discharge Summary Sheet rn - Joint Pain rn Forms: - Medication Reconciliation Form rn - Thank You Letter rn - Antibiotic turning sander tender - Prescription Opioid Use rn Prescriptions: - Diclofenac Sodium 75 mg Oral tablet,delayed release (DR/EC) - take 1 tablet by ORAL route 2 times per day; 20 tablet; Refills: 0, Product rn Selection Permitted Signatures: Colt Gusman MD MD rn Dixie-StagerNikki RN RN Cynthia Marsh RN RN ic1
[2021-08-28 11:34] VITALS: BP 113/62; TEMP 97.5; O2SAT 100
== END 2021-08-28 11:16 | disposition home or self-care (01) ==
LOC: ER 10:37
DX: M25.561 Pain in right knee (principal); I10 Essential (primary) hypertension
CPT/HCPCS: 96372; 99283

== ENCOUNTER 2021-10-06 18:09 | Emergency (ER) | payer BC ==
--- OUTSIDE RECORDS SUMMARY | 2021-10-06 18:13 | XMS REPORT | Continuity of Care Document ---
:1965 Author Organization [facility] t Address [address] [place] [address] Care Team Providers Name Role Phone PCP, PATIENT DOES NOT HAVE A Primary Care Physician Unavaila ble Only, Pob2 Test Attending Clinician Unavailable Branden Pisano DO Attending Clinician BRANDEN PISANO Attending Clinician Unavailable Rivka RN Attending Clinician Unavailable Jsoe FORD, T Attending Clinician Unavailable Doctor Unassigned, Name Attending Clinician Unavailable Jarett ACNP, E Attending Clinician Pamela CYR Attending Clinician Unavailable Swallows, Speech Modified Barium Attending Clinician Unashilpa Mckeon PHD, L Attending Clinician Silas MCKEON Attending Clinician Unavailable Payers Payer Name Policy Type Policy Number Effective Date Expiration Date S ource Problems Condition Condition Condition Status Onset Resolution Last Treating Co mments Source Name Details Category Date Date Treatment Clinician Date BMI BMI Disease Active 2016-08 Univers 29.0-29.9, 29.0-29.9, 1-10 it y of adult adult 00:00: [place] 00 Medical Branch Prolapse Prolapse Disease Active [...] n Depo-Prove Depo-Prove Disease Active 2014-08 U nivers ra ra 1-20 [place] y[place]isa status 00 Me dical Branch Essential Essential Disease Active 2014-08 Uni vers hypertensi hypertensi 1-20 [place] benign [place] Contracept Contracept Disease Active 2014-08 U oswaldo millere yulisa 1-13 [place] [facility] Branch Acute Acute Disease Active 2014-08 Univers cystitis cystitis 1-11 ity of without without 00:00: [place] hematuria hematuria 00 [facility] Allergies, Adverse Reactions, Alerts Allergy Allergy Status Severity Reaction(s) Onset Inactive Treating Comm ents Source Name Type Date Date Clinician NO KNOWN Drug Active Univers ALLERGIE Class ity of S [facility] Social History Social Habit Start Date Stop Date Quantity Comments Source Exposure to Not sure [facility] SARS-CoV-2 (event) Medica l Branch Alcohol intake 2020-01-27 2020-01-27 0 /d [facility] 00:00:00 00:00:00 [facility] Tobacco use and 2013-11-20 2013-11-20 Never used [facility] exposure 00:00:00 00:00:00 [facility] Sex [birth year] [facility] 00:00:00 00:00:00 [facility] Smoking Status Start Date Stop Date Source Never smoker [facility] Medications Ordered Filled Start Stop Current Ordering Indication Dosage Frequency Signature Comments Components Source Medication Medication Date Date Medication? Clinician (SIG) Name Name pantoprazol Yes [id number] 40mg Take 1 Univers e 40 mg EC 6-22 tablet by ity of tablet 00:00: [facility] 00 daily. Medical Branch pantoprazol Yes [id number] 40mg Take 1 Univers e 40 mg EC 6-22 tablet by ity of tablet 00:00: mouth [place] 00 daily. Medical Branch pantoprazol 2019-0 Yes [id number] 40mg Take 1 Univers e 40 mg EC 6-22 tablet by ity of tablet 00:00: mouth [place] 00 daily. Medical Branch pantoprazol 2019-0 Yes [id number] 40mg Take 1 Univers e 40 mg EC 6-22 tablet by ity of tablet 00:00: mouth [place] 00 daily. Medical Branch pantoprazol 2019-0 Yes [id number] 40mg Take 1 Univers e 40 mg EC 6-22 tablet by ity of tablet 00:00: mouth [place] 00 daily. Medical Branch pantoprazol 2019-0 Yes [id number] 40mg Take 1 Univers e 40 mg EC 6-22 tablet by ity of tablet 00:00: mouth [place] 00 daily. Medical Branch pantoprazol 2019-0 Yes [id number] 40mg Take 1 Univers e 40 mg EC 6-22 tablet by ity of tablet 00:00: mouth [place] 00 daily. Medical Branch pantoprazol 2019-0 Yes [id number] 40mg Take 1 Univers e 40 mg EC 6-22 tablet by ity of tablet 00:00: mouth [place] 00 daily. Medical Branch pantoprazol 2019-0 Yes [id number] 40mg Take 1 Univers e 40 mg EC 6-22 tablet by ity of tablet 00:00: mouth [place] 00 daily. Medical Branch pantoprazol 2019-0 Yes [id number] 40mg Take 1 Univers e 40 mg EC 6-22 tablet by ity of tablet 00:00: mouth [place] 00 daily. Medical Branch traMADOL 2019-0 Yes [id number] 50mg Take 1 Uni vers (ULTRAM) 50 3-10 tablet by ity of mg tablet 00:00: mouth [place] 00 every 6 Medical (six) Branch hours as needed for Pain (scale 7-10). clindamycin 2019-0 Yes [id number] 300mg Take 1 Univers 300 mg 3-10 capsule by ity of capsule 00:00: mouth 3 [place] 00 (three) Medical times Branch daily. traMADOL 2019-0 Yes [id number] 50mg Take 1 Uni vers (ULTRAM) 50 3-10 tablet by ity of mg tablet 00:00: mouth [place] 00 every 6 Medical (six) Branch hours as needed for Pain (scale 7-10). clindamycin 2019-0 Yes [id number] 300mg Take 1 Univers 300 mg 3-10 capsule by ity of capsule 00:00: mouth 3 00 (three) Medical times Branch daily. traMADOL 2019-0 Yes [id number] 50mg Take 1 Uni vers (ULTRAM) 50 3-10 tablet by ity of mg tablet 00:00: mouth [place] 00 every 6 Medical (six) Branch hours as needed for Pain (scale 7-10). clindamycin 2019-0 Yes [id number] 300mg Take 1 Univers 300 mg 3-10 capsule by ity of capsule 00:00: mouth 3 00 (three) Medical times Branch daily. traMADOL 2019-0 Yes [id number] 50mg Take 1 Uni vers (ULTRAM) 50 3-10 tablet by ity of mg tablet 00:00: mouth [place] 00 every 6 Medical (six) Branch hours as needed for Pain (scale 7-10). clindamycin 2019-0 Yes [id number] 300mg Take 1 Univers 300 mg 3-10 capsule by ity of capsule 00:00: mouth (three) Medical times Branch daily. traMADOL 2019-0 Yes [id number] 50mg Take 1 Uni vers (ULTRAM) 50 3-10 tablet by ity of mg tablet 00:00: mouth [place] 00 every 6 Medical (six) Branch hours as needed for Pain (scale 7-10). clindamycin 2019-0 Yes [id number] 300mg Take 1 Univers 300 mg 3-10 capsule by ity of capsule 00:00: mouth (three) Medical times Branch daily. traMADOL 2019-0 Yes [id number] 50mg Take 1 Uni vers (ULTRAM) 50 3-10 tablet by ity of mg tablet 00:00: mouth [place] 00 every 6 Medical (six) Branch hours as needed for Pain (scale 7-10). clindamycin 2019-0 Yes [id number] 300mg Take 1 Univers 300 mg 3-10 capsule by ity of capsule 00:00: mouth 3 00 (three) Medical times Branch daily. traMADOL 2019-0 Yes [id number] 50mg Take 1 Uni vers (ULTRAM) 50 3-10 tablet by ity of mg tablet 00:00: mouth [place] 00 every 6 Medical (six) Branch hours as needed for Pain (scale 7-10). clindamycin 2019-0 Yes [id number] 300mg Take 1 Univers 300 mg 3-10 capsule by ity of capsule 00:00: mouth 3 (three) Medical times Branch daily. traMADOL 2019-0 Yes [id number] 50mg Take 1 Uni vers (ULTRAM) 50 3-10 tablet by ity of mg tablet 00:00: mouth [place] 00 every 6 Medical (six) Branch hours as needed for Pain (scale 7-10). clindamycin 2019-0 Yes [id number] 300mg Take 1 Univers 300 mg 3-10 capsule by ity of capsule 00:00: mouth 3 (three) Medical times Branch daily. traMADOL 2019-0 Yes [id number] 50mg Take 1 Uni vers (ULTRAM) 50 3-10 tablet by ity of mg tablet 00:00: mouth [place] 00 every 6 Medical (six) Branch hours as needed for Pain (scale 7-10). clindamycin 2019-0 Yes [id number] 300mg Take 1 Univers 300 mg 3-10 capsule by ity of capsule 00:00: mouth (three) Medical times Branch daily. traMADOL 2019-0 Yes [id number] 50mg Take 1 Uni vers (ULTRAM) 50 3-10 tablet by ity of mg tablet 00:00: mouth [place] 00 every 6 Medical (six) Branch hours as needed for Pain (scale 7-10). clindamycin 2019-0 Yes [id number] 300mg Take 1 Univers 300 mg 3-10 capsule by ity of capsule 00:00: mouth (three) Medical times Branch daily. traMADOL 2019-0 Yes [id number] 50mg Take 1 Uni vers (ULTRAM) 50 3-10 tablet by ity of mg tablet 00:00: mouth [place] 00 every 6 Medical (six) Branch hours as needed for Pain (scale 7-10). clindamycin 2019-0 Yes [id number] 300mg Take 1 Univers 300 mg 3-10 capsule by ity of capsule 00:00: mouth 3 (three) Medical times Branch daily. ibuprofen 2018-0 Yes 800mg Take 1 Unive rs 800 mg 9-27 tablet by ity of tablet 00:00: mouth [place] 00 every 8 Medical (eight) Branch hours. diazePAM 2018-0 Yes 5mg Take 1 Univers (VALIUM) 5 9-27 tablet by ity of mg tablet 00:00: mouth 2 (two) Medical times Branch daily as needed [...] ity of mg tablet 00:00: mouth 2 (two) Medical times Branch daily as needed for Muscle Spasms. ibuprofen 2018-0 Yes 800mg Take 1 Unive rs 800 mg 9-27 tablet by ity of tablet 00:00: mouth [place] 00 every 8 Medical (eight) Branch hours. diazePAM 2018-0 Yes 5mg Take 1 Univers (VALIUM) 5 9-27 tablet by ity of mg tablet 00:00: mouth (two) Medical times Branch daily as needed for Muscle Spasms. ibuprofen 2018-0 Yes 800mg Take 1 Unive rs 800 mg 9-27 tablet by ity of tablet 00:00: mouth [place] 00 every 8 Medical (eight) Branch hours. diazePAM 2018-0 Yes 5mg Take 1 Univers (VALIUM) 5 9-27 tablet by ity of mg tablet 00:00: mouth 2 (two) Medical times Branch daily as needed [...] daily as needed for Muscle Spasms. hydroCHLORO 2017- Yes 25mg Take 1 Univ ers thiazide 25 1-07 tablet by ity of mg tablet 00:00: mouth [place] 00 every Medical morning. Branch hydroCHLORO 2016- Yes 25mg Take 1 Univ ers thiazide 25 1-07 tablet by ity of mg tablet 00:00: mouth [place] 00 every Medical morning. Branch hydroCHLORO 2016- Yes 25mg Take 1 Univ ers thiazide 25 1-07 tablet by ity of mg tablet 00:00: mouth [place] 00 every Medical morning. Branch hydroCHLORO 2016 Yes 25mg Take 1 Univ ers thiazide [...] 00:00: mouth [place] 00 every Medical morning. [place] Immunizations Ordered Filled Immunization Date Status Comments [facility] e Immunization Name Name TDAP (ADACEL) 2015-02-04 Completed University of VACCINE 00:00:00 [facility] TDAP (ADACEL) 2015-02-04 Completed University of VACCINE 00:00:00 [facility] TDAP (ADACEL) 2015-02-04 Completed University of VACCINE 00:00:00 [facility] TDAP (ADACEL) 2015-02-04 Completed University of VACCINE 00:00:00 [facility] TDAP (ADACEL) 2015-02-04 Completed University of VACCINE 00:00:00 [facility] TDAP (ADACEL) 2015-02-04 Completed University of VACCINE 00:00:00 [facility] TDAP (ADACEL) 2015-02-04 Completed University of VACCINE 00:00:00 [facility] TDAP (ADACEL) 2015-02-04 Completed University of VACCINE 00:00:00 [facility] TDAP (ADACEL) 2015-02-04 Completed University of VACCINE 00:00:00 [facility] TDAP (ADACEL) 2015-02-04 Completed University of VACCINE 00:00:00 [facility] TDAP (ADACEL) 2015-02-04 Completed University of VACCINE 00:00:00 [facility] Vital Signs Vital Name Observation Time Observation Value Comments Source Systolic blood 2020-01-27 15:55:00 126 mm[Hg] Univer sity of pressure [facility] Diastolic blood 2020-01-27 15:55:00 89 mm[Hg] Unive rsity of pressure [facility] Heart rate 2020-01-27 15:55:00 83 /min Universi ty of [facility] Body temperature 2020-01-27 15:55:00 36.33 Rossi [address] [facility] Body height 2020-01-27 15:55:00 165.[address] [facility] Body weight 2020-01-27 15:55:00 87.[address] [facility] BMI 2020-01-27 15:55:00 32.25 kg/m2 Universi ty of [facility] Systolic blood 2020-01-27 15:55:00 126 mm[Hg] Univer sity of pressure [facility] Diastolic blood 2020-01-27 15:55:00 89 mm[Hg] Unive rsity of pressure [facility] Heart rate 2020-01-27 15:55:00 83 /min Universi ty of [facility] Body temperature 2020-01-27 15:55:00 36.33 Rossi [address] of [facility] Body height 2020-01-27 15:55:00 165.[address] [facility] Body weight 2020-01-27 15:55:00 87.907 kg Universi ty of [place] [facility] BMI 2020-01-27 15:55:00 32.25 kg/m2 Universi ty of [facility] Branch Procedures Procedure Date / Time Performed Performing Clinician Abdon e EXTERNAL PROVIDER 2021-02-17 05:01:00 Doctor Unassigned, No Univ ersity of [place] RECORDS Name Medical Branch EXTERNAL PROVIDER 2020-03-02 05:01:00 Doctor Unassigned, No Univ ersity [facility] RECORDS Name Medical Branch ASSIGNMENT OF BENEFITS 2020-01-27 15:36:07 Doctor Unassigned, No [facility] Name Medical Branch Encounters Start End Encounter Admission Attending Care Care Encounter Source Date/Time Date/Time Type Type Clinicians Facility Department ID 2021-09-01 2021-09-01 Laboratory Only, Adc Pob2 Test [facility] 1.2 .840.114 [id number] Univers 11:00:00 11:15:00 Only Gibran Pisano 350.1.13 .10 ity [facility] [id number] PROF[place] [phone] Wy dical NAL [address] [place] [address] 2021-09-01 2021-09-01 Outpatient R SELENA [facility] [id number] Univers 11:00:00 11:05:11 GIBRAN ity [facility] 2021-09-01 2021-09-01 Outpatient R [facility] [id number] Univers 11:00:00 11:00:00 [id number] ity [facility] 2021-09-01 2021-09-01 Telephone ONESIMO Tineo [id number] Univers 00:00:00 00:00:00 Izabela DAWSON 350.1.13.10 it [facility] [id number] Isaías as [phone] [address] 2021-08-30 2021-08-30 Outpatient R SELENA [facility] [id number] Univers 10:30:00 10:41:00 GIBRAN whitman [facility] 2021-08-30 2021-08-30 Laboratory Only, Adc Pob2 Test [facility] 1.2 .840.114 [id number] Univers 10:30:00 10:41:00 Only Gibran Pisano 350.1.13 .10 ity [facility] [id number] PROF[place] [phone] Wy dical NAL [address] [place] [address] 2021-08-30 2021-08-30 Outpatient R [facility] [id number] Univers 10:30:00 10:30:00 [id number] ity [facility] 2021-08-30 2021-08-30 Letter ONESIMO Garcia 1.2.840.114 [id number] Univers 00:00:00 00:00:00 (Out) Elicia T EUNICE [id number] it y of HOSPITAL [id number] Isaías as [phone] [facility] 019 Branch 2021-02-17 2021-02-17 Orders Doctor ONESIMO 1.2.840.114 [id number] Univers 00:00:00 00:00:00 Only Unassigned, EUNICE 350.1.13.10 ity of [facility] 4.2.7.2.686 Isaías as [phone] [facility] 009 Branch 2021-02-09 2021-02-09 Telephone Jarett, UNIVERSIT 1.2.840.114 [id number] Univers 00:00:00 00:00:00 Annmarie E Y HEALTH [id number] ity of [place] [phone] [address] 2020-03-02 2020-03-02 Orders Doctor ONESIMO 1.2.840.114 [id number] 00:00:00 00:00:00 Only Unassigned, EUNICE 350.1.13.10 [facility] 4.2.7.2.686 [id number] [facility] 2020-03-02 2020-03-02 Orders Doctor ONESIMO 1.2.840.114 [id number] Univers 00:00:00 00:00:00 Only Unassigned, EUNICE 350.1.13.10 ity of [place] 4.2.7.2.686 Isaías as [id number] [address] 2020-02-24 2020-02-24 [facility] [id number] Univers 10:30:00 10:30:00 ANNMARIE ity o f [facility] 2020-02-24 2020-02-24 [facility] [id number] Univers 10:30:00 10:30:00 ANNMARIE [id number] ity o f [facility] 2020-02-13 2020-02-13 Ancillary Elijah, UNIVERSIT 1.2.840.114 [id number] 11:00:12 11:30:12 Visit Gal Speech Y 350.1.13.10 Modified NATIONAL [id number] [facility] BANK [phone] BLDG. 145 2020-02-13 2020-02-13 Ancillary Swallows, Gal Speech Modifie d Barium UNIVERSIT 1.2.840.114 [id number] Univers 11:00:12 11:30:12 Visit Mckeon, Yee Ross 350.1.13.10 ity of [facility] 4.2.7.2.686 Isaías as BANK [phone] [facility] BLDG. 145 Branch 2020-02-13 2020-02-13 [facility] [id number] Univers 09:00:00 09:00:00 ANNMARIE [id number] ity o f [facility] 2020-02-13 2020-02-13 Outpatient [facility] [id number] Univers 09:00:00 09:00:[address] [facility] 2020-01-27 2020-01-27 Office [facility], [facility] [id number] 10:43:44 11:39:23 Visit Annmarie E Y HEALTH 350.1.13.10 CLINICS 4.2.7.2.686 [phone] [facility] 2020-01-27 2020-01-27 Office [facility] [id number] Univers 10:43:44 11:39:23 Visit Annmarie E Y HEALTH 350.1.13.10 ity of [facility] 4.2.7.2.[place] [id number] [place] [address] Branch 2020-01-27 2020-01-27 Out[facility] [id number] Univers 10:30:00 10:30:00 ANNMARIE [id number] ity o f [facility] 2020-01-27 2020-01-27 [facility] [id number] Univers 10:30:00 10:30:00 [address]ARIE ity o f [facility] 2020-01-27 2020-01-27 Orders Doctor ECHOLS 1.2.840.114 [id number] Univers 00:00:00 00:00:00 Only Unassigned, EUNICE 350.1.13.10 ity of [place] [facility] [id number] Isaías as [phone] Medi tuyet 009 Branch Results This patient has no known results.
--- NOTE | 2021-10-06 19:24 | ER ---
Nurse's Notes [facility] Name: Mi Ortiz Age: 56 yrs Sex: Female : 1965 Arrival Date: 10/06/2021 Time: 18:17 Bed 15 Private MD: Diagnosis: Acute gingivitis;Dental caries, unspecified Presentation: 10/06 18:58 Chief complaint: Patient states: painful gums starting yesterday but worse today, jg9 redness noted. Coronavirus screen: Vaccine status: Patient reports receiving the 2nd dose of the covid vaccine. not sure which one she received. Ebola Screen: Patient negative for fever greater than or equal to 101.5 degrees Fahrenheit, and additional compatible Ebola Virus Disease symptoms Patient denies exposure to infectious person. Patient denies travel to an Ebola-affected area in the 21 days before illness onset. Initial Sepsis Screen: Does the patient meet any 2 criteria? No. Patient's initial sepsis screen is negative. Does the patient have a suspected source of infection? No. Patient's initial sepsis screen is negative. Risk Assessment: Do you want to hurt yourself or someone else? Patient reports no desire to harm self or others. 18:58 Method Of Arrival: Ambulatory [facility] 18:58 Acuity: CARMEN 5 [facility] 19:05 Onset of symptoms was October 05, 2021. j9 Triage Assessment: 19:04 General: Appears uncomfortable, Behavior is restless. Pain: Complains of pain in jg9 mouth-gums. 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 - Social history:: Smoking status: Patient denies any tobacco usage or history of. - Family history:: not pertinent. - Hospitalizations: : No recent hospitalization is reported. Screenin:04 Abuse screen: Denies threats or abuse. Denies injuries from another. Nutritional j9 screening: Difficulty chewing/swallowing? Yes. Tuberculosis screening: No symptoms or risk factors identified. Fall Risk None identified. Assessment: 19:31 General: Appears uncomfortable, Behavior is calm, cooperative, appropriate for age. tk1 19:41 Pain: Complains of pain in mouth Pain does not radiate. Pain currently is 10 out of 10 tk1 on a pain scale. Quality of pain is described as aching, Pain began gradually, 2-3 days ago. Is continuous. Neuro: Level of Consciousness is awake, alert, obeys commands, Oriented to person, place, time, situation, Appropriate for age Pelt Salter are equal bilaterally Moves all extremities. Gait is steady, Speech is normal, Facial symmetry appears normal, Pupils are PERRLA. Cardiovascular: Capillary refill < 3 seconds is brisk in bilateral fingers. Respiratory: Airway is patent Trachea midline Respiratory effort is even, unlabored, Respiratory pattern is regular, symmetrical. GI: No deficits noted. No signs and/or symptoms were reported involving the gastrointestinal system. : No deficits noted. No signs and/or symptoms were reported regarding the genitourinary system. EENT: Oral mucosa is moist. Poor dentition noted. edema to gums. Derm: No deficits noted. No signs and/or symptoms reported regarding the dermatologic system. Musculoskeletal: No deficits noted. No signs and/or symptoms reported regarding the musculoskeletal system. 20:06 Reassessment: D/C per MD order. Discharge/Prescription instructions given to patient. tk1 Verbalized understanding. Vital Signs: 18:58 BP 128 / 95; Pulse 66; Resp 17 S; Temp 97.7(TE); Pulse Ox 100% on R/A; Weight 76.2 kg; jg9 Height 5 ft. 5 in. (165.10 cm) (R); 19:41 BP 125 / 88 LA Sitting (auto/reg); Pulse 60 MON; Resp 18 S; Temp 98(O); Pulse Ox 100% tk1 on R/A; Pain 10/10; 18:58 Body Mass Index 27.96 (76.20 kg, 165.10 cm) jg9 ED Course: 18:17 Patient arrived in ED. ds1 19:03 Triage completed. jg9 19:04 Arm band placed on right wrist. jg9 19:06 Colt Gusman MD is Attending Physician. rn 19:31 Molly Molina is Primary Nurse. tk1 19:41 Patient has correct armband on for positive identification. Bed in low position. Call tk1 light in reach. 19:41 No provider procedures requiring assistance completed. Patient did not have IV access tk1 during this emergency room visit. Administered Medications: 19:41 Drug: Ketorolac 30 mg Route: IM; Site: right gluteus; tk1 20:07 Follow up: Response: No adverse reaction; Medication administered at discharge. tk1 19:41 Drug: predniSONE 60 mg Route: PO; tk1 20:07 Follow up: Response: No adverse reaction tk1 Outcome: 19:23 Discharge ordered by . rn 20: Discharged to home ambulatory. tk1 20:07 Condition: stable 20:07 Discharge instructions given to patient, Instructed on discharge instructions, follow up and referral plans. medication usage, Demonstrated understanding of instructions, follow-up care, medications. 20:17 Patient left the ED. tk1 Signatures: Ela Goins ds1 Colt Gusman MD MD rn Gilmore, Jennifer, RN RN jg9 Molly Molina tk1
--- NOTE | 2021-10-06 19:24 | EDPHYS ---
Physician Documentation [facility] Name: Mi Ortiz Age: 56 yrs Sex: Female : 1965 Arrival Date: 10/06/2021 Time: 18:17 Bed 15 Private MD: ED Physician Colt Gusman HPI: 10/06 19:21 This 56 yrs old Female presents to ER via Ambulatory with complaints of Mouth rn Problem. 19:21 The patient presents with pain, redness. The problem is located in the mouth. Onset: rn The symptoms/episode began/occurred 1 week(s) ago. Duration: The symptoms are continuous. Modifying factors: The symptoms are alleviated by nothing, the symptoms are aggravated by chewing. Associated signs and symptoms: Pertinent negatives: fever, inability to eat. Severity of symptoms: At their worst the symptoms were mild, in the emergency department the symptoms are unchanged. The patient has experienced similar episodes in the past. The patient has not recently seen a physician. Pt reports chronic dental problems and pain, worse over last week, feels like gums hurt and are swollen. No fever. Is able to eat. Denies trauma. . 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 - Social history:: Smoking status: Patient denies any tobacco usage or history of. - Family history:: not pertinent. - Hospitalizations: : No recent hospitalization is reported. ROS: 19:21 Constitutional: Negative for fever, chills, and weight loss, Eyes: Negative for injury, rn pain, redness, and discharge, ENT: + dental and gingival pain Neck: Negative for injury, pain, and swelling, Cardiovascular: Negative for chest pain, palpitations, and edema, Respiratory: Negative for shortness of breath, cough, wheezing, and pleuritic chest pain, Abdomen/GI: Negative for abdominal pain, nausea, vomiting, diarrhea, and constipation, Neuro: Negative for headache, weakness, numbness, tingling, and seizure. Exam: 19:21 Constitutional: This is a well developed, well nourished patient who is awake, alert, rn and in no acute distress. Head/Face: Normocephalic, atraumatic. Eyes: Pupils equal round and reactive to light, extra-ocular motions intact. Lids and lashes normal. Conjunctiva and sclera are non-icteric and not injected. Cornea within normal limits. Periorbital areas with no swelling, redness, or edema. ENT: Poor dentition, mild hyperemia of gums, no signs of abscess, no focal swelling. NO stridor. NO oral lesions. Neck: Trachea midline, no thyromegaly or masses palpated, and no cervical lymphadenopathy. Supple, full range of motion without nuchal rigidity, or vertebral point tenderness. No Meningismus. Cardiovascular: Regular rate and rhythm . No pulse deficits. Respiratory: No increased work of breathing, no retractions or nasal flaring. Vital Signs: 18:58 BP 128 / 95; Pulse 66; Resp 17 S; Temp 97.7(TE); Pulse Ox 100% on R/A; Weight 76.2 kg; jg9 Height 5 ft. 5 in. (165.10 cm) (R); 19:41 BP 125 / 88 LA Sitting (auto/reg); Pulse 60 MON; Resp 18 S; Temp 98(O); Pulse Ox 100% tk1 on R/A; Pain 10/10; 18:58 Body Mass Index 27.96 (76.20 kg, 165.10 cm) jg9 MDM: 19:06 Patient medically screened. rn 19:21 Differential diagnosis: dental caries, gingivitis. Data reviewed: vital signs, nurses rn notes, and as a result, I will discharge patient. Counseling: I had a detailed discussion with the patient and/or guardian regarding: the historical points, exam findings, and any diagnostic results supporting the discharge/admit diagnosis, the need for outpatient follow up, to return to the emergency department if symptoms worsen or persist or if there are any questions or concerns that arise at home. Response to treatment: the patient's symptoms have mildly improved after treatment, and as a result, I will discharge patient. Special discussion: I discussed with the patient/guardian in detail that at this point there is no indication for admission to the hospital. It is understood, however, that if the symptoms persist or worsen the patient needs to return immediately for re-evaluation. Based on the history and exam findings, there is no indication for further emergent testing or inpatient evaluation. I discussed with the patient/guardian the need to see a dentist for further evaluation of the symptoms. ED course: States making dental appt tomorrow.. Administered Medications: 19:41 Drug: Ketorolac 30 mg Route: IM; Site: right gluteus; tk1 20:07 Follow up: Response: No adverse reaction; Medication administered at discharge. tk1 19:41 Drug: predniSONE 60 mg Route: PO; tk1 20:07 Follow up: Response: No adverse reaction tk1 Disposition Summary: 10/06/21 19:23 Discharge Ordered Location: Home rn Problem: an ongoing problem rn Symptoms: have improved rn Condition: Stable rn Diagnosis - Acute gingivitis rn - Dental caries, unspecified rn Followup: rn - With: Private Physician - When: As needed - Reason: Recheck today's complaints, Re-evaluation by your physician Discharge Instructions: - Discharge Summary Sheet rn - Dental Caries, Adult rn - Dental Pain rn Forms: - Medication Reconciliation Form rn - Thank You Letter rn - Antibiotic emergency department rn - Prescription Opioid Use rn Prescriptions: - chlorhexidine gluconate 0.12 % Mucous Membrane mouthwash - place 15 milliliter by MUCOUS MEMBRANE route 2 times per day for 10 days after rn brushing teeth, swish in mouth for 30 seconds then spit out; 1 bottle; Refills: 0, Product Selection Permitted - Augmentin 875-125 mg Oral Tablet - take 1 tablet by ORAL route every 12 hours for 10 days; 20 tablet; Refills: 0, rn Product Selection Permitted - Tramadol 50 mg Oral Tablet - take 1 tablet by ORAL route every 8 hours as needed; 12 tablet; Refills: 0, rn Product Selection Permitted Signatures: Colt Gusman MD MD rn Gilmore, Jennifer, RN RN ambrociogMolly Donohue tk1
[2021-10-06] MEDS ORDERED: KETOROLAC 30 MG/ML INJ ONE (19:39)
[2021-10-06] MEDS ORDERED: predniSONE 20 MG TAB ONE (19:39)
[2021-10-06 20:33] VITALS: BP 125/88; TEMP 98; O2SAT 100
== END 2021-10-06 20:17 | disposition home or self-care (01) ==
LOC: ER 18:09
DX: K02.9 Dental caries, unspecified (principal); K05.00 Acute gingivitis, plaque induced
CPT/HCPCS: 96372; 99283; J7512

== ENCOUNTER 2021-10-08 06:30 | Emergency (ER) | payer BC ==
--- OUTSIDE RECORDS SUMMARY | 2021-10-08 06:33 | XMS REPORT | Continuity of Care Document ---
:1965 Author Organization [facility] t Address [address] [place] [address] Care Team Providers Name Role Phone PCP, PATIENT DOES NOT HAVE A Primary Care Physician Unavaila ble Only, Pob2 Test Attending Clinician Unavailable Branden Pisano DO Attending Clinician BRANDEN PISANO Attending Clinician Unavailable Rivka RN Attending Clinician Unavailable Jose FORD, T Attending Clinician Unavailable Doctor Unassigned, [...] it[place] of [place] [facility] Acute Acute Disease Active 2014-08 Univers cystitis cystitis 1-11 ity of without without 00:00: [place] hematuria hematuria 00 [facility] Allergies, Adverse Reactions, Alerts Allergy Allergy Status Severity Reaction(s) Onset Inactive Treating Comm ents Source Name Type Date Date Clinician NO KNOWN Drug Active Univers ALLERGIE Class ity of S [facility] Social History Social Habit Start Date Stop Date Quantity Comments Source Exposure to Not sure [facility] SARS-CoV-2 (event) Medica l Branch Alcohol intake 2020-01-27 2020-01-27 0 /d [facility] 00:00:00 00:00:00 [facility] Tobacco use and 2013-11-20 2013-11-20 Never used [facility] exposure 00:00:00 00:00:00 [facility] Sex Ass[birth year] [facility] 00:00:00 00:00:00 [facility] Smoking Status Start Date Stop Date Source Never smoker [facility] Medications Ordered Filled Start Stop Current Ordering Indication Dosage Frequency Signature Comments Components Source Medication Medication Date Date Medication? Clinician (SIG) Name Name pantoprazol Yes [id number] 40mg Take 1 Univers e 40 mg EC 6-22 tablet by ity of tablet 00:00: [facility] 00 daily. Medical Branch pantoprazol Yes [id number] 40mg Take 1 Univers e 40 mg EC 6-22 tablet by ity of tablet 00:00: mouth [place] 00 daily. Medical Branch pantoprazol 2019-0 Yes [id number] 40mg Take 1 Univers e 40 mg EC 6-22 tablet by ity of tablet 00:00: mouth [place] 00 daily. Medical Branch pantoprazol 2019-0 Yes [id number] 40mg Take 1 Univers e 40 mg EC 6-22 tablet by ity of tablet 00:00: mouth [place] 00 daily. Medical Branch pantoprazol 2019-0 Yes [id number] 40mg Take 1 Univers e 40 mg EC 6-22 tablet by ity of tablet 00:00: mouth [place] 00 daily. Medical Branch pantoprazol 2019-0 Yes [id number] 40mg Take 1 Univers e 40 mg EC 6-22 tablet by ity of tablet 00:00: mouth [place] 00 daily. Medical Branch pantoprazol 2019-0 Yes [id number] 40mg Take 1 Univers e 40 mg EC 6-22 tablet by ity of tablet 00:00: mouth [place] 00 daily. Medical Branch pantoprazol 2019-0 Yes [id number] 40mg Take 1 Univers e 40 mg EC 6-22 tablet by ity of tablet 00:00: mouth [place] 00 daily. Medical Branch pantoprazol 2019-0 Yes [id number] 40mg Take 1 Univers e 40 mg EC 6-22 tablet by ity of tablet 00:00: mouth [place] 00 daily. Medical Branch pantoprazol 2019-0 Yes [id number] 40mg Take 1 Univers e 40 mg EC 6-22 tablet by ity of tablet 00:00: mouth [place] 00 daily. Medical Branch traMADOL 2019-0 Yes [id number] 50mg Take 1 Uni vers (ULTRAM) 50 3-10 tablet by ity of mg tablet 00:00: mouth [place] 00 every 6 Medical (six) Branch hours as needed for Pain (scale 7-10). clindamycin 2019-0 Yes [id number] 300mg Take 1 Univers 300 mg 3-10 capsule by ity of capsule 00:00: mouth 3 [place] 00 (three) Medical times Branch daily. traMADOL 2019-0 Yes [id number] 50mg Take 1 Uni vers (ULTRAM) 50 3-10 tablet by ity of mg tablet 00:00: mouth [place] 00 every 6 Medical (six) Branch hours as needed for Pain (scale 7-10). clindamycin 2019-0 Yes [id number] 300mg Take 1 Univers 300 mg 3-10 capsule by ity of capsule 00:00: mouth 3 00 (three) Medical times Branch daily. traMADOL 2019-0 Yes [id number] 50mg Take 1 Uni vers (ULTRAM) 50 3-10 tablet by ity of mg tablet 00:00: mouth [place] 00 every 6 Medical (six) Branch hours as needed for Pain (scale 7-10). clindamycin 2019-0 Yes [id number] 300mg Take 1 Univers 300 mg 3-10 capsule by ity of capsule 00:00: mouth 3 00 (three) Medical times Branch daily. traMADOL 2019-0 Yes [id number] 50mg Take 1 Uni vers (ULTRAM) 50 3-10 tablet by ity of mg tablet 00:00: mouth [place] 00 every 6 Medical (six) Branch hours as needed for Pain (scale 7-10). clindamycin 2019-0 Yes [id number] 300mg Take 1 Univers 300 mg 3-10 capsule by ity of capsule 00:00: mouth (three) Medical times Branch daily. traMADOL 2019-0 Yes [id number] 50mg Take 1 Uni vers (ULTRAM) 50 3-10 tablet by ity of mg tablet 00:00: mouth [place] 00 every 6 Medical (six) Branch hours as needed for Pain (scale 7-10). clindamycin 2019-0 Yes [id number] 300mg Take 1 Univers 300 mg 3-10 capsule by ity of capsule 00:00: mouth (three) Medical times Branch daily. traMADOL 2019-0 Yes [id number] 50mg Take 1 Uni vers (ULTRAM) 50 3-10 tablet by ity of mg tablet 00:00: mouth [place] 00 every 6 Medical (six) Branch hours as needed for Pain (scale 7-10). clindamycin 2019-0 Yes [id number] 300mg Take 1 Univers 300 mg 3-10 capsule by ity of capsule 00:00: mouth 3 00 (three) Medical times Branch daily. traMADOL 2019-0 Yes [id number] 50mg Take 1 Uni vers (ULTRAM) 50 3-10 tablet by ity of mg tablet 00:00: mouth [place] 00 every 6 Medical (six) Branch hours as needed for Pain (scale 7-10). clindamycin 2019-0 Yes [id number] 300mg Take 1 Univers 300 mg 3-10 capsule by ity of capsule 00:00: mouth 3 (three) Medical times Branch daily. traMADOL 2019-0 Yes [id number] 50mg Take 1 Uni vers (ULTRAM) 50 3-10 tablet by ity of mg tablet 00:00: mouth [place] 00 every 6 Medical (six) Branch hours as needed for Pain (scale 7-10). clindamycin 2019-0 Yes [id number] 300mg Take 1 Univers 300 mg 3-10 capsule by ity of capsule 00:00: mouth 3 (three) Medical times Branch daily. traMADOL 2019-0 Yes [id number] 50mg Take 1 Uni vers (ULTRAM) 50 3-10 tablet by ity of mg tablet 00:00: mouth [place] 00 every 6 Medical (six) Branch hours as needed for Pain (scale 7-10). clindamycin 2019-0 Yes [id number] 300mg Take 1 Univers 300 mg 3-10 capsule by ity of capsule 00:00: mouth (three) Medical times Branch daily. traMADOL 2019-0 Yes [id number] 50mg Take 1 Uni vers (ULTRAM) 50 3-10 tablet by ity of mg tablet 00:00: mouth [place] 00 every 6 Medical (six) Branch hours as needed for Pain (scale 7-10). clindamycin 2019-0 Yes [id number] 300mg Take 1 Univers 300 mg 3-10 capsule by ity of capsule 00:00: mouth (three) Medical times Branch daily. traMADOL 2019-0 Yes [id number] 50mg Take 1 Uni vers (ULTRAM) 50 3-10 tablet by ity of mg tablet 00:00: mouth [place] 00 every 6 Medical (six) Branch hours as needed for Pain (scale 7-10). clindamycin 2019-0 Yes [id number] 300mg Take 1 Univers 300 mg 3-10 [...] 00:00: mouth [place] 00 every Medical morning. [place] Immunizations Ordered Filled Immunization Date Status Comments [facility] e Immunization Name Name TDAP (ADACEL) 2015-02-04 Completed University of VACCINE 00:00:00 [facility] TDAP (ADACEL) 2015-02-04 Completed University of VACCINE 00:00:00 [facility] TDAP (ADACEL) 2015-02-04 Completed University of VACCINE 00:00:00 [facility] TDAP (ADACEL) 2015-02-04 Completed University of VACCINE 00:00:00 [facility] TDAP (ADACEL) 2015-02-04 Completed University of VACCINE 00:00:00 [facility] TDAP (ADACEL) 2015-02-04 Completed University of VACCINE 00:00:00 [facility] TDAP (ADACEL) 2015-02-04 Completed University of VACCINE 00:00:00 [facility] TDAP (ADACEL) 2015-02-04 Completed University of VACCINE 00:00:00 [facility] TDAP (ADACEL) 2015-02-04 Completed University of VACCINE 00:00:00 [facility] TDAP (ADACEL) 2015-02-04 Completed University of VACCINE 00:00:00 [facility] TDAP (ADACEL) 2015-02-04 Completed University of VACCINE 00:00:00 [facility] Vital Signs Vital Name Observation Time Observation Value Comments Source Systolic blood 2020-01-27 15:55:00 126 mm[Hg] Univer sity of pressure [facility] Diastolic blood 2020-01-27 15:55:00 89 mm[Hg] Unive rsity of pressure [facility] Heart rate 2020-01-27 15:55:00 83 /min Universi ty of [facility] Body temperature 2020-01-27 15:55:00 36.33 Rossi Univ ersity of [facility] Body height 2020-01-27 15:55:00 165.1 cm Universi ty of [facility] Body weight 2020-01-27 15:55:00 87.907 kg Universi ty of [facility] BMI 2020-01-27 15:55:00 32.25 kg/m2 Universi ty of [facility] Systolic blood 2020-01-27 15:55:00 126 mm[Hg] Univer sity of pressure [facility] Diastolic blood 2020-01-27 15:55:00 89 mm[Hg] Unive rsity of pressure [facility] Heart rate 2020-01-27 15:55:00 83 /min Universi ty of [facility] Body temperature 2020-01-27 15:55:00 36.33 Rossi Univ ersity of [facility] Body height 2020-01-27 15:55:00 165.1 cm Universi ty of [facility] Body weight 2020-01-27 15:55:00 87.907 kg Universi ty of [place] [facility] BMI 2020-01-27 15:55:00 32.25 kg/m2 Universi ty of [facility] Branch Procedures Procedure Date / Time Performed Performing Clinician Abdon e EXTERNAL PROVIDER 2021-02-17 05:01:00 Doctor Unassigned, No Univ ersity of [place] RECORDS Name Medical Branch EXTERNAL PROVIDER 2020-03-02 05:01:00 Doctor Unassigned, No Univ ersity [facility] RECORDS Name Medical Branch ASSIGNMENT OF BENEFITS 2020-01-27 15:36:07 Doctor Unassigned, No [facility] Name Medical Branch Encounters Start End Encounter Admission Attending Care Care Encounter Source Date/Time Date/Time Type Type Clinicians Facility Department ID 2021-09-01 2021-09-01 Laboratory Only, Adc Pob2 Test [facility] 1.2 .840.114 [id number] Univers 11:00:00 11:15:00 Only Gibran Pisano 350.1.13 .10 ity [facility] [id number] [id number] [place] N[place] [address] [place] [address] 2021-09-01 2021-09-01 Outpatient R SELENA [facility] [id number] Univers 11:00:00 11:05:11 GIBRAN ity [facility] 2021-09-01 2021-09-01 Outpatient R [facility] [id number] Univers 11:00:00 11:00:00 [id number] ity [facility] 2021-09-01 2021-09-01 Telephone ONESIMO Tineo [id number] Univers 00:00:00 00:00:00 Izabela DAWSON [id number] it [facility] [id number] Isaías as [phone] [address] 2021-08-30 2021-08-30 Outpatient R SELENA [facility] [id number] Univers 10:30:00 10:41:00 GIBRAN whitman [facility] 2021-08-30 2021-08-30 Laboratory Only, Adc Pob2 Test [facility] 1.2 .840.114 [id number] Univers 10:30:00 10:41:00 Only Gibran Pisano 350.1.13 .10 ity [facility] [id number] [id number] [place] N[place] [address] [place] [address] 2021-08-30 2021-08-30 Outpatient R [facility] [id number] Univers 10:30:00 10:30:00 [id number] ity [facility] 2021-08-30 2021-08-30 Letter ONESIMO Garcia [id number] Univers 00:00:00 00:00:00 (Out) Elicia T EUNICE [id number] it y of HOSPITAL [id number] [facility] 019 Branch 2021-02-17 2021-02-17 Orders Doctor ONESIMO 1.2.840.114 [id number] Univers 00:00:00 00:00:00 Only Unassigned, EUNICE [id number] ity of [place] [facility] 4.2.7.2.[id number] [facility] 009 Branch 2021-02-09 2021-02-09 Telephone Jarett, UNIVERSIT 1.2.840.114 [id number] Univers 00:00:00 00:00:00 Annmarie E Y HEALTH [id number] ity of [place] [id number] [address] 2020-03-02 2020-03-02 Orders Doctor ONESIMO 1.2.840.114 [id number] 00:00:00 00:00:00 Only Unassigned, EUNICE 350.1.13.10 [place] [facility] 4.2.7.2.686 [id number] [facility] 2020-03-02 2020-03-02 Orders Doctor ONESIMO 1.2.840.114 [id number] Univers 00:00:00 00:00:00 Only Unassigned, EUNICE [id number] ity of [place] [facility] 4.2.7.2.686 Isaías as [id number] [address] 2020-02-24 2020-02-24 [facility] [id number] Univers 10:30:00 10:30:00 ANNMARIE ity o f [facility] 2020-02-24 2020-02-24 [facility] [id number] Univers 10:30:00 10:30:00 ANNMARIE [id number] ity o f [facility] 2020-02-13 2020-02-13 Ancillary Elijah, UNIVERSIT 1.2.840.114 [id number] 11:00:12 11:30:12 Visit Gal Speech Y [id number] Modified NATIONAL [id number] [facility] BANK [id number] BLDG. 145 2020-02-13 2020-02-13 Ancillary Swallows, Gal Speech Modifie d Barium UNIVERSIT 1.2.840.114 [id number] Univers 11:00:12 11:30:12 Visit Mckeon, Yee Ross 350.1.13.10 ity of [facility] [id number] Isaías as BANK [id number] [facility] BLDG. 145 Branch 2020-02-13 2020-02-13 [facility] [id number] Univers 09:00:00 09:00:00 ANNMARIE [id number] ity o f [facility] 2020-02-13 2020-02-13 Out[facility] [id number] Univers 09:00:00 09:00:00 YEE whitman of [facility] 2020-01-27 2020-01-27 Office [facility], [facility] [id number] 10:43:44 11:39:23 Visit Annmarie E Y HEALTH [id number] CLINICS [id number] [id number] [facility] 2020-01-27 2020-01-27 Office [facility] [id number] Univers 10:43:44 11:39:23 Visit Annmarie E Y HEALTH [id number] [facility] 4[place]2.7.2.[place] [id number] [address] Branch 2020-01-27 2020-01-27 Out[facility] [id number] Univers 10:30:00 10:30:00 ANNMARIE [id number] ity o f [facility] 2020-01-27 2020-01-27 [facility] [id number] Univers 10:30:00 10:30:00 ANNMARIE ity o f [facility] 2020-01-27 2020-01-27 Orders Doctor ECHOLS 1.2.840.114 [id number] Univers 00:00:00 00:00:00 Only Unassigned, EUNICE [id number] ity of [place] [facility] [id number] Isaías as [id number] Medi tuyet 009 Branch Results This patient has no known results.
[2021-10-08] MEDS ORDERED: dexAMETHasone 10 MG/ML VIAL ONE (06:52)
[2021-10-08] MEDS ORDERED: KETOROLAC 30 MG/ML INJ ONE (06:52)
--- NOTE | 2021-10-08 07:21 | EDPHYS ---
Physician Documentation [facility] Name: Mi Ortiz Age: 56 yrs Sex: Female : 1965 Arrival Date: 10/08/2021 Time: 06:33 Bed 13 Private MD: ED Physician Marciano Olivas HPI: 10/08 06:47 This 56 yrs old Female presents to ER via Ambulatory with complaints of jmm Itching. 06:47 The patient's rash thought to be caused by an unknown cause. The rash is located on the jmm body diffusely. Is a 56-year-old female with recent prescription for Augmentin that presents the ED with a facial, chest, arm rash pain last night. Patient describes it is pruritic. Denies shortness of breath, vomiting. Patient complains of ongoing dental pain as well. 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 - Social history:: Smoking status: Patient denies any tobacco usage or history of. ROS: 06:47 Constitutional: Negative for fever, chills, and weight loss, Cardiovascular: Negative jmm for chest pain, palpitations, and edema, Respiratory: Negative for shortness of breath, cough, wheezing, and pleuritic chest pain. 06:47 ENT: Positive for dental pain. 06:47 Skin: Positive for rash. 06:47 All other systems are negative. Exam: 06:47 Constitutional: This is a well developed, well nourished patient who is awake, alert, jmm and in no acute distress. 06:47 Eyes: EOMI, no conjunctival erythema appreciated 06:47 Neck: Trachea midline, Supple Chest/axilla: Normal chest wall appearance and motion. Cardiovascular: Regular rate and rhythm. No edema appreciated Respiratory: Normal respirations, no respiratory distress appreciated Abdomen/GI: Non distended, soft Back: Normal ROM 06:47 Head/face: Noted is rash. 06:47 ENT: Dental exam: dental caries, that is moderate, diffusely. 06:47 ENT: No pharyngeal edema appreciated. 06:47 Skin: on the face, chest, right arm and left arm. 06:47 Neuro: Orientation: is normal, Mentation: is normal, Memory: is normal. 06:47 Psych: Behavior/mood is pleasant, cooperative. Vital Signs: 06:55 BP 124 / 83 LA Sitting (auto/reg); Pulse 80 MON; Resp 18 S; Pulse Ox 99% on R/A; Pain sv1 0/10; 07:36 BP 122 / 78; Pulse 77; Resp 18; Temp 98.6; Pulse Ox 99% ; Pain 0/10; cb5 MDM: 06:47 Patient medically screened. [facility] 07:20 Data reviewed: vital signs, nurses notes. Counseling: I had a detailed discussion with [facility] the patient and/or guardian regarding: the historical points, exam findings, and any diagnostic results supporting the discharge/admit diagnosis, the need for outpatient follow up, to return to the emergency department if symptoms worsen or persist or if there are any questions or concerns that arise at home. ED course: Patient patient is advised to discontinue Augmentin. Will prescribe an alternative antibiotic. . Administered Medications: 06:54 Drug: Ketorolac 30 mg Route: IM; Site: right deltoid; sv1 06:55 Drug: Decadron (dexamethasone) 10 mg Route: IM; Site: right deltoid; sv1 Disposition Summary: 10/08/21 07:21 Discharge Ordered Location: Home [facility] Condition: Stable [facility] Diagnosis - Rash and other nonspecific skin eruption [facility] Followup: [facility] - With: Private Physician - When: 2 - 3 days - Reason: Recheck today's complaints, Continuance of care, Re-evaluation by your physician Discharge Instructions: - Discharge Summary Sheet [facility] - Rash, Adult [facility] Forms: - Medication Reconciliation Form [facility] - Thank You Letter [facility] - Antibiotic Education [facility] - Prescription Opioid Use [facility] Prescriptions: - Clindamycin HCl 300 mg Oral Capsule - take 1 capsule by ORAL route every 6 hours for 10 days; 40 capsule; Refills: 0, [facility] Product Selection Permitted - Hydroxyzine HCl 25 mg Oral Tablet - take 1 tablet by ORAL route every 6 hours As needed; 30 tablet; Refills: 0, [facility] Product Selection Permitted - Pepcid 20 mg Oral Tablet - take 1 tablet by ORAL route every 12 hours for 10 days; 20 tablet; Refills: 0, [facility] Product Selection Permitted - Diclofenac Sodium 75 mg Oral Tablet Sustained Release - take 1 tablet by ORAL route 2 times per day; 30 tablet; Refills: 0, Product aletha Selection Permitted Signatures: Adan Ordonez PA PA jmm Villicano, Steven RN RN sv1 Corrections: (The following items were deleted from the chart) : 07:01 Allergies: NKA; sv1 sv1 : 07:01 PMHx: Hypertension; sv1 sv1 07: 07:01 PMHx: Arthritis; sv1 1 : 07:01 PSHx: hysterectomy; sv1 sv1
--- NOTE | 2021-10-08 07:21 | ER ---
Nurse's Notes [facility] Name: Mi Ortiz Age: 56 yrs Sex: Female : 1965 Arrival Date: 10/08/2021 Time: 06:33 Bed 13 Private MD: Diagnosis: Rash and other nonspecific skin eruption Presentation: 10/08 06:55 Chief complaint: Patient states: oral and body rash and itching. Coronavirus screen: sv1 Client denies travel out of the [place] in the last 14 days. Ebola Screen: No symptoms or risks identified at this time. Onset: The symptoms/episode began/occurred acutely. Anaphylaxis evaluation, no signs or symptoms of anaphylaxis were noted. Initial Sepsis Screen: Does the patient meet any 2 criteria? No. Patient's initial sepsis screen is negative. Initial Sepsis Screen: Does the patient have a suspected source of infection? No. Patient's initial sepsis screen is negative. Risk Assessment: Do you want to hurt yourself or someone else?. Onset of symptoms was October 07, 2021. 06:55 Method Of Arrival: Ambulatory sv1 06:55 Acuity: CARMEN 3 sv1 Triage Assessment: 07:01 General: Appears distressed. Pain: Denies pain. 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 - Social history:: Smoking status: Patient denies any tobacco usage or history of. Screenin:05 Abuse screen: Denies threats or abuse. Nutritional screening: No deficits noted. sv1 Tuberculosis screening: No symptoms or risk factors identified. Fall Risk None identified. Assessment: 07:08 Respiratory: Airway. Respiratory: Respiratory effort is even, unlabored, Breath sounds sv1 are clear. Vital Signs: 06:55 BP 124 / 83 LA Sitting (auto/reg); Pulse 80 MON; Resp 18 S; Pulse Ox 99% on R/A; Pain sv1 0/10; 07:36 BP 122 / 78; Pulse 77; Resp 18; Temp 98.6; Pulse Ox 99% ; Pain 0/10; cb5 ED Course: 06:33 Patient arrived in ED. wm 06:36 Adan Ordonez PA is PHCP. [facility] 06:36 Marciano Olivas MD is Attending Physician. [facility] 06:46 Tiago Campos, RN is Primary Nurse. sv1 07:01 Triage completed. sv1 07:01 Arm band placed on right wrist. sv1 07:05 Patient has correct armband on for positive identification. Bed in low position. Call sv1 light in reach. Side rails up X2. 07:05 No provider procedures requiring assistance completed. Patient did not have IV access sv1 during this emergency room visit. Administered Medications: 06:54 Drug: Ketorolac 30 mg Route: IM; Site: right deltoid; sv1 06:55 Drug: Decadron (dexamethasone) 10 mg Route: IM; Site: right deltoid; sv1 Outcome: 07:21 Discharge ordered by . [facility] 07:35 Discharged to home ambulatory. cb5 07:35 Condition: stable 07:35 Discharge instructions given to patient. 07:36 Patient left the ED. cb5 Signatures: Adan Ordonez PA PA [facility] [place] Tiago Campos, LOGAN RN [facility] Annelise Lee RN RN cb5 Corrections: (The following items were deleted from the chart) 07:03 07:01 Allergies: NKA; sv1 sv1 07:03 07:01 PMHx: Hypertension; sv1 sv1 07:03 07:01 PMHx: Arthritis; sv1 sv1 07:03 07:01 PSHx: hysterectomy; sv1 sv1
[2021-10-08 08:53] VITALS: O2SAT 99
[2021-10-08 08:56] VITALS: BP 122/78; TEMP 98.6
== END 2021-10-08 07:36 | disposition home or self-care (01) ==
LOC: ER 06:30
DX: R21 Rash and other nonspecific skin eruption (principal); Z88.1 Allergy status to other antibiotic agents
CPT/HCPCS: 96372; 99283; J1100

== ENCOUNTER 2021-11-14 22:12 | Emergency (ER) | payer BC ==
--- OUTSIDE RECORDS SUMMARY | 2021-11-14 22:16 | XMS REPORT | Continuity of Care Document ---
:1965 Author Organization [facility] t Address [address] [place] [address] Care Team Providers Name Role Phone PCP, [...] 1-10 it y of adult adult 00:00: [place] 00 Medical Branch Prolapse Prolapse Disease Active [...] it[place] of management [place] [facility] Acute Acute Disease Active 2014-08 Univers cystitis cystitis 1-11 ity of without without 00:00: [place] hematuria hematuria 00 [facility] Allergies, Adverse Reactions, Alerts Allergy Allergy Status Severity Reaction(s) Onset Inactive Treating Comm ents Source Name Type Date Date Clinician NO KNOWN Drug Active Univers ALLERGIE Class ity of [facility] Social History Social Habit Start Date Stop Date Quantity Comments Source Exposure to Not sure [facility] SARS-CoV-2 (event) Medica l Branch Alcohol intake 2020-01-27 2020-01-27 0 /d [facility] 00:00:00 00:00:00 [facility] Tobacco use and 2013-11-20 2013-11-20 Never used [facility] exposure 00:00:00 00:00:00 [facility] Sex Ass[birth year] At [birth year] [facility] 00:00:00 00:00:00 [facility] Smoking Status Start Date Stop Date Source Never smoker [facility] Medications Ordered Filled Start Stop Current Ordering Indication Dosage Frequency Signature Comments Components Source Medication Medication Date Date Medication? Clinician (SIG) Name Name pantoprazol Yes [id number] 40mg Take 1 Univers e 40 mg EC 6-22 tablet by ity of tablet 00:00: [facility] 00 daily. Medical Branch pantoprazol Yes [id number] 40mg Take 1 Univers e 40 mg EC 6-22 tablet by ity of tablet 00:00: mouth [place] 00 daily. Medical Branch pantoprazol 2019-0 Yes [id number] 40mg Take 1 Univers e 40 mg EC 6-22 tablet by ity of tablet 00:00: mouth [place] 00 daily. Medical Branch pantoprazol 2019-0 Yes [id number] 40mg Take 1 Univers e 40 mg EC 6-22 tablet by ity of tablet 00:00: mouth [place] 00 daily. Medical Branch pantoprazol 2019-0 Yes [id number] 40mg Take 1 Univers e 40 mg EC 6-22 tablet by ity of tablet 00:00: mouth [place] 00 daily. Medical Branch pantoprazol 2019-0 Yes [id number] 40mg Take 1 Univers e 40 mg EC 6-22 tablet by ity of tablet 00:00: mouth [place] 00 daily. Medical Branch pantoprazol 2019-0 Yes [id number] 40mg Take 1 Univers e 40 mg EC 6-22 tablet by ity of tablet 00:00: mouth [place] 00 daily. Medical Branch pantoprazol 2019-0 Yes [id number] 40mg Take 1 Univers e 40 mg EC 6-22 tablet by ity of tablet 00:00: mouth [place] 00 daily. Medical Branch pantoprazol 2019-0 Yes [id number] 40mg Take 1 Univers e 40 mg EC 6-22 tablet by ity of tablet 00:00: mouth [place] 00 daily. Medical Branch pantoprazol 2019-0 Yes [id number] 40mg Take 1 Univers e 40 mg EC 6-22 tablet by ity of tablet 00:00: mouth [place] 00 daily. Medical Branch traMADOL 2019-0 Yes [id number] 50mg Take 1 Uni vers (ULTRAM) 50 3-10 tablet by ity of mg tablet 00:00: mouth [place] 00 every 6 Medical (six) Branch hours as needed for Pain (scale 7-10). clindamycin 2019-0 Yes [id number] 300mg Take 1 Univers 300 mg 3-10 capsule by ity of capsule 00:00: mouth 3 [place] 00 (three) Medical times Branch daily. traMADOL 2019-0 Yes [id number] 50mg Take 1 Uni vers (ULTRAM) 50 3-10 tablet by ity of mg tablet 00:00: mouth [place] 00 every 6 Medical (six) Branch hours as needed for Pain (scale 7-10). clindamycin 2019-0 Yes [id number] 300mg Take 1 Univers 300 mg 3-10 capsule by ity of capsule 00:00: mouth 3 00 (three) Medical times Branch daily. traMADOL 2019-0 Yes [id number] 50mg Take 1 Uni vers (ULTRAM) 50 3-10 tablet by ity of mg tablet 00:00: mouth [place] 00 every 6 Medical (six) Branch hours as needed for Pain (scale 7-10). clindamycin 2019-0 Yes [id number] 300mg Take 1 Univers 300 mg 3-10 capsule by ity of capsule 00:00: mouth 3 00 (three) Medical times Branch daily. traMADOL 2019-0 Yes [id number] 50mg Take 1 Uni vers (ULTRAM) 50 3-10 tablet by ity of mg tablet 00:00: mouth [place] 00 every 6 Medical (six) Branch hours as needed for Pain (scale 7-10). clindamycin 2019-0 Yes [id number] 300mg Take 1 Univers 300 mg 3-10 capsule by ity of capsule 00:00: mouth (three) Medical times Branch daily. traMADOL 2019-0 Yes [id number] 50mg Take 1 Uni vers (ULTRAM) 50 3-10 tablet by ity of mg tablet 00:00: mouth [place] 00 every 6 Medical (six) Branch hours as needed for Pain (scale 7-10). clindamycin 2019-0 Yes [id number] 300mg Take 1 Univers 300 mg 3-10 capsule by ity of capsule 00:00: mouth (three) Medical times Branch daily. traMADOL 2019-0 Yes [id number] 50mg Take 1 Uni vers (ULTRAM) 50 3-10 tablet by ity of mg tablet 00:00: mouth [place] 00 every 6 Medical (six) Branch hours as needed for Pain (scale 7-10). clindamycin 2019-0 Yes [id number] 300mg Take 1 Univers 300 mg 3-10 capsule by ity of capsule 00:00: mouth 3 00 (three) Medical times Branch daily. traMADOL 2019-0 Yes [id number] 50mg Take 1 Uni vers (ULTRAM) 50 3-10 tablet by ity of mg tablet 00:00: mouth [place] 00 every 6 Medical (six) Branch hours as needed for Pain (scale 7-10). clindamycin 2019-0 Yes [id number] 300mg Take 1 Univers 300 mg 3-10 capsule by ity of capsule 00:00: mouth 3 (three) Medical times Branch daily. traMADOL 2019-0 Yes [id number] 50mg Take 1 Uni vers (ULTRAM) 50 3-10 tablet by ity of mg tablet 00:00: mouth [place] 00 every 6 Medical (six) Branch hours as needed for Pain (scale 7-10). clindamycin 2019-0 Yes [id number] 300mg Take 1 Univers 300 mg 3-10 capsule by ity of capsule 00:00: mouth 3 (three) Medical times Branch daily. traMADOL 2019-0 Yes [id number] 50mg Take 1 Uni vers (ULTRAM) 50 3-10 tablet by ity of mg tablet 00:00: mouth [place] 00 every 6 Medical (six) Branch hours as needed for Pain (scale 7-10). clindamycin 2019-0 Yes [id number] 300mg Take 1 Univers 300 mg 3-10 capsule by ity of capsule 00:00: mouth (three) Medical times Branch daily. traMADOL 2019-0 Yes [id number] 50mg Take 1 Uni vers (ULTRAM) 50 3-10 tablet by ity of mg tablet 00:00: mouth [place] 00 every 6 Medical (six) Branch hours as needed for Pain (scale 7-10). clindamycin 2019-0 Yes [id number] 300mg Take 1 Univers 300 mg 3-10 capsule by ity of capsule 00:00: mouth (three) Medical times Branch daily. traMADOL 2019-0 Yes [id number] 50mg Take 1 Uni vers (ULTRAM) 50 3-10 tablet by ity of mg tablet 00:00: mouth [place] 00 every 6 Medical (six) Branch hours as needed for Pain (scale 7-10). clindamycin 2019-0 Yes [id number] 300mg Take 1 Univers 300 mg 3-10 [...] 00:00: mouth [place] 00 every Medical morning. [place] Immunizations Ordered Filled Immunization Date Status Comments [facility] e Immunization Name Name TDAP (ADACEL) 2015-02-04 Completed University of VACCINE 00:00:00 [facility] TDAP (ADACEL) 2015-02-04 Completed University of VACCINE 00:00:00 [facility] TDAP (ADACEL) 2015-02-04 Completed University of VACCINE 00:00:00 [facility] TDAP (ADACEL) 2015-02-04 Completed University of VACCINE 00:00:00 [facility] TDAP (ADACEL) 2015-02-04 Completed University of VACCINE 00:00:00 [facility] TDAP (ADACEL) 2015-02-04 Completed University of VACCINE 00:00:00 [facility] TDAP (ADACEL) 2015-02-04 Completed University of VACCINE 00:00:00 [facility] TDAP (ADACEL) 2015-02-04 Completed University of VACCINE 00:00:00 [facility] TDAP (ADACEL) 2015-02-04 Completed University of VACCINE 00:00:00 [facility] TDAP (ADACEL) 2015-02-04 Completed University of VACCINE 00:00:00 [facility] TDAP (ADACEL) 2015-02-04 Completed University of VACCINE 00:00:00 [facility] Vital Signs Vital Name Observation Time Observation Value Comments Source Systolic blood 2020-01-27 15:55:00 126 mm[Hg] Univer sity of pressure [facility] Diastolic blood 2020-01-27 15:55:00 89 mm[Hg] Unive rsity of pressure [facility] Heart rate 2020-01-27 15:55:00 83 /min Universi ty of [facility] Body temperature 2020-01-27 15:55:00 36.33 Rossi Univ ersity of [facility] Body height 2020-01-27 15:55:00 165.1 cm Universi ty of [facility] Body weight 2020-01-27 15:55:00 87.907 kg Universi ty of [facility] BMI 2020-01-27 15:55:00 32.25 kg/m2 Universi ty of [facility] Systolic blood 2020-01-27 15:55:00 126 mm[Hg] Univer sity of pressure [facility] Diastolic blood 2020-01-27 15:55:00 89 mm[Hg] Unive rsity of pressure [facility] Heart rate 2020-01-27 15:55:00 83 /min Universi ty of [facility] Body temperature 2020-01-27 15:55:00 36.33 Rossi Univ ersity of [facility] Body height 2020-01-27 15:55:00 165.1 cm Universi ty of [facility] Body weight 2020-01-27 15:55:00 87.907 kg Universi ty of [place] [facility] BMI 2020-01-27 15:55:00 32.25 kg/m2 Universi ty of [facility] Branch Procedures Procedure Date / Time Performed Performing Clinician Abdon e EXTERNAL PROVIDER 2021-02-17 05:01:00 Doctor Unassigned, No Univ ersity of [place] RECORDS Name Medical Branch EXTERNAL PROVIDER 2020-03-02 05:01:00 Doctor Unassigned, No Univ ersity [facility] RECORDS Name Medical Branch ASSIGNMENT OF BENEFITS 2020-01-27 15:36:07 Doctor Unassigned, No [facility] Name Medical Branch Encounters Start End Encounter Admission Attending Care Care Encounter Source Date/Time Date/Time Type Type Clinicians Facility Department ID 2021-09-01 2021-09-01 Laboratory Only, Adc Pob2 Test [facility] [id number] .840.114 [id number] Univers 11:00:00 11:15:00 Only Gibran Pisano [id number] .10 ity [facility] [id number] PROF[place] [phone] Ma dical NAL [address] [place] [address] 2021-09-01 2021-09-01 Outpatient R SELENA [facility] [id number] Univers 11:00:00 11:05:11 GIBRAN ity [facility] 2021-09-01 2021-09-01 Outpatient R [facility] [id number] Univers 11:00:00 11:00:00 [id number] ity [facility] 2021-09-01 2021-09-01 Telephone ONESIMO Tineo [id number] Univers 00:00:00 00:00:00 Izabela DAWSON [id number] it [facility] [id number] Isaías as [phone] [address] 2021-08-30 2021-08-30 Outpatient R SELENA [facility] [id number] Univers 10:30:00 10:41:00 GIBRAN whitman [facility] 2021-08-30 2021-08-30 Laboratory Only, Adc Pob2 Test [facility] 1.2 .840.114 [id number] Univers 10:30:00 10:41:00 Only Gibran Pisano 350.1.13 .10 ity [facility] [id number] [phone] Ma dical NAL [address] [place] [address] 2021-08-30 2021-08-30 Outpatient R [facility] [id number] Univers 10:30:00 10:30:00 [id number] ity [facility] 2021-08-30 2021-08-30 Letter ONESIMO Garcia [id number] Univers 00:00:00 00:00:00 (Out) Elicia T EUNICE [id number] it y of HOSPITAL [id number] Isaías as [phone] [facility] 019 Branch 2021-02-17 2021-02-17 Orders Doctor ONESIMO 1.2.840.114 [id number] Univers 00:00:00 00:00:00 Only Unassigned, EUNICE [id number] ity of [place] [facility] [id number] Isaías as [phone] [facility] 009 Branch 2021-02-09 2021-02-09 Telephone Jarett, UNIVERSIT 1.2.840.114 [id number] Univers 00:00:00 00:00:00 Annmarie E Y HEALTH [id number] ity of [id number] [id number] [address] 2020-03-02 2020-03-02 Orders Doctor ONESIMO 1.2.840.114 [id number] 00:00:00 00:00:00 Only Unassigned, EUNICE [id number] [place] [facility] [phone] [facility] 2020-03-02 2020-03-02 Orders Doctor ONESIMO 1.2.840.114 [id number] Univers 00:00:00 00:00:00 Only Unassigned, EUNICE [id number] ity of [place] [facility] [id number] Isaías as [phone] [address] 2020-02-24 2020-02-24 Outpatient [place]ell [place] [id number] Univers 10:30:00 10:30:00 ANNMARIE ity o f [facility] 2020-02-24 2020-02-24 Outpatient R [place] [id number] Univers 10:30:00 10:30:00 ANNMARIE [id number] ity o f [facility] 2020-02-13 2020-02-13 Ancillary Elijah, UNIVERSIT 1.2.840.114 [id number] 11:00:12 11:30:12 Visit Gal Speech Y [id number] Modified NATIONAL [id number] [facility] BANK [id number] BLDG. 145 2020-02-13 2020-02-13 Ancillary Swallows, Gal Speech Modifie d Barium UNIVERSIT 1.2.840.114 [id number] Univers 11:00:12 11:30:12 Visit Mckeon, Yee Ross [id number] ity of [facility] [id number] Isaías as BANK [phone] [facility] BLDG. 145 Branch 2020-02-13 2020-02-13 [facility] [id number] Univers 09:00:00 09:00:00 ANNMARIE [id number] ity o f [facility] 2020-02-13 2020-02-13 Outpatient [place] [id number] Univers 09:00:00 09:00:00 YEE whitman of [facility] 2020-01-27 2020-01-27 Office [facility], [facility] [id number] 10:43:44 11:39:23 Visit Annmarie E Y HEALTH [id number] CLINICS [id number] [id number] [facility] 2020-01-27 2020-01-27 Office [facility] [id number] Univers 10:43:44 11:39:23 Visit Annmarie E Y HEALTH [id number] ity of [facility] [id number] [phone] [place] [address] Branch 2020-01-27 2020-01-27 Outpatient [place] [id number] Univers 10:30:00 10:30:00 ANNMARIE [id number] ity o f [facility] 2020-01-27 2020-01-27 Outpatient [place] [id number] Univers 10:30:00 10:30:00 ANNMARIE ity o f [facility] 2020-01-27 2020-01-27 Orders Doctor ECHOLS 1.2.840.114 [id number] Univers 00:00:00 00:00:00 Only Unassigned, EUNICE [id number] ity of [place] [facility] [id number] Isaías as [phone] Medi tuyet 009 Branch Results This patient has no known results.
[2021-11-14] MEDS ORDERED: dexAMETHasone 10 MG/ML VIAL ONE (23:01)
[2021-11-14] MEDS ORDERED: DIPHENHYDRAMINE 50 MG/ML VIAL ONE (23:01)
[2021-11-14] MEDS ORDERED: FAMOTIDINE 20 MG/2 ML VIAL IV ONE (23:01)
[2021-11-14] MEDS ORDERED: KETOROLAC 30 MG/ML INJ ONE (23:01)
--- NOTE | 2021-11-14 23:51 | EDPHYS ---
Physician Documentation [facility] Name: Mi Ortiz Age: 56 yrs Sex: Female : 1965 Arrival Date: 11/14/2021 Time: 22:16 Bed 11 Private MD: LEATHA Physician Robert Hargrove HPI: 11/14 23:46 This 56 yrs old Female presents to ER via Ambulatory with complaints of pm1 Possible allergic reaction, itchy all over. 23:46 Onset: The symptoms/episode began/occurred today. Associated signs and symptoms: pm1 Pertinent positives: rash and itching, Pertinent negatives: shortness of breath, sore throat. Modifying factors: The patient symptoms are alleviated by nothing, the patient symptoms are aggravated by unknown. The patient has not experienced similar symptoms in the past. The patient has not recently seen a physician. 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 - Social history:: Smoking status: Patient denies any tobacco usage or history of. ROS: 23:46 Constitutional: Negative for fever, chills, and weight loss, ENT: Negative for injury, pm1 pain, and discharge, Cardiovascular: Negative for chest pain, palpitations, and edema, Respiratory: Negative for shortness of breath, cough, wheezing, and pleuritic chest pain, Abdomen/GI: Negative for abdominal pain, nausea, vomiting, diarrhea, and constipation, MS/Extremity: Negative for injury and deformity. 23:46 Skin: Positive for rash, diffusely. 23:46 All other systems are negative. pm1 Exam: 23:46 Constitutional: This is a well developed, well nourished patient who is awake, alert, pm1 and in no acute distress. Head/Face: Normocephalic, atraumatic. 23:46 MS/ Extremity: Pulses equal, no cyanosis. Neurovascular intact. Full, normal range of motion. 23:46 ENT: Exam is negative for acute changes, Mouth: Lips: normal, Oral mucosa: normal, pink and intact, moist, Gums: normal with healthy appearance. 23:46 Cardiovascular: Exam negative for acute changes, Rate: normal, Rhythm: regular, Pulses: no pulse deficits are appreciated. 23:46 Respiratory: Exam negative for acute changes, respiratory distress, shortness of breath, Breath sounds: are clear throughout. 23:46 Skin: Appearance: normal except for affected area, consistent with urticaria, and is diffusely located. Vital Signs: 22:42 BP 141 / 91; Pulse 64; Resp 18; Temp 97.2(TE); Pulse Ox 100% on R/A; Weight 73.48 kg lp1 (R); Height 5 ft. 5 in. (165.10 cm); 23:21 BP 141 / 92; Pulse 64; Resp 16; Temp 98.8; Pulse Ox 100% ; Pain 8/10; eb1 22:42 Body Mass Index 26.96 (73.48 kg, 165.10 cm) lp1 MDM: 22:45 Patient medically screened. pm1 22:51 ED course: Patient asking for medications for her dental pain, will give Toradol along pm1 with medications for her allergic reaction. 23:46 Data reviewed: vital signs. Data interpreted: Pulse oximetry: on room air is 100 %. pm1 Interpretation: normal. 23:46 Counseling: I had a detailed discussion with the patient and/or guardian regarding: the pm1 historical points, exam findings, and any diagnostic results supporting the discharge/admit diagnosis, the need for outpatient follow up, an allergy/machine shop specialist, a family practitioner, to return to the emergency department if symptoms worsen or persist or if there are any questions or concerns that arise at home. 11/15 00:07 ED course: Patient is requesting medications for her dental pain. Will discharge pm1 patient with antibiotics for follow-up with dentist. 11/14 22:51 Order name: IV Saline Lock; Complete Time: 23:20 pm1 Administered Medications: 11/14 23:20 Drug: Ketorolac 30 mg Route: IVP; Site: left antecubital; eb1 23:57 Follow up: Response: No adverse reaction eb1 23:20 Drug: Benadryl (diphenhydrAMINE) 12.5 mg Route: IVP; Site: left antecubital; eb1 23:36 Drug: Pepcid (famotidine) 20 mg Route: IVP; Site: left antecubital; eb1 23:57 Follow up: Response: No adverse reaction eb1 23:37 Drug: Decadron - Dexamethasone 10 mg Route: IVP; Site: left antecubital; eb1 23:57 Follow up: Response: No adverse reaction; Pain is decreased eb1 Disposition: 11/15 03:35 Co-signature as Attending Physician, Robert Hargrove MD. 7 Disposition Summary: 11/14/21 23:50 Discharge Ordered Location: Home pm1 Problem: new pm1 Symptoms: have improved pm1 Condition: Stable pm1 Diagnosis - Urticaria, unspecified pm1 Followup: pm1 - With: Emergency Department - When: As needed - Reason: Worsening of condition Followup: pm1 - With: Private Physician - When: 2 - 3 days - Reason: Recheck today's complaints, Continuance of care, Re-evaluation by your physician Discharge Instructions: - Discharge Summary Sheet pm1 - Dental Caries, Adult pm1 - Hives pm1 - Rash, Adult pm1 Forms: - Medication Reconciliation Form pm1 - Thank You Letter pm1 - Antibiotic Education pm1 - Prescription Opioid Use pm1 Prescriptions: - Benadryl 25 mg Oral Capsule - take 1 capsule by ORAL route every 6 hours As needed; 30 tablet; Refills: 0, pm1 Product Selection Permitted - Clindamycin HCl 300 mg Oral Capsule - take 1 capsule by ORAL route every 6 hours for 10 days; 40 capsule; Refills: 0, pm1 Product Selection Permitted - Pepcid 20 mg Oral Tablet - take 1 tablet by ORAL route every 12 hours for 10 days; 20 tablet; Refills: 0, pm1 Product Selection Permitted - Medrol (Oleg) 4 mg Oral Tablets, Dose Pack - take 1 tablet by ORAL route as directed - follow package instructions; 1 pm1 packet; Refills: 0, Product Selection Permitted Signatures: Malka Godfrey RN RN 1 Tyson Momin NP LINE UP EXAMINER pm1 Maura Ulrich RN RN eb1 Robert Hargrove MD MD 7
--- NOTE | 2021-11-14 23:51 | ER ---
Nurse's Notes [facility] Name: Mi Ortiz Age: 56 yrs Sex: Female : 1965 Arrival Date: 11/14/2021 Time: 22:16 Bed 11 Private MD: Diagnosis: Urticaria, unspecified Presentation: 11/14 22:42 Chief complaint: Patient states: Rash to face that began this morning, states similar lp1 reaction with Amoxicillin, but has not taken any new meds or foods; States itching to general body, no relief with Benadryl ointment applied to face, itching significant to left ear. Coronavirus screen: At this time, the client does not indicate any symptoms associated with coronavirus-19. Ebola Screen: No symptoms or risks identified at this time. Initial Sepsis Screen: Does the patient meet any 2 criteria? No. Patient's initial sepsis screen is negative. Does the patient have a suspected source of infection? No. Patient's initial sepsis screen is negative. Risk Assessment: Do you want to hurt yourself or someone else? Patient reports no desire to harm self or others. Onset of symptoms was November 14, 2021. 22:42 Method Of Arrival: Ambulatory lp1 22:42 Acuity: CARMEN 4 lp1 22:45 Note Patient reports she does not know if this is related to her bad tooth, requesting lp1 antibiotics for tooth. Triage Assessment: 22:45 General: Appears in no apparent distress. Behavior is calm, cooperative. Neuro: Level lp1 of Consciousness is awake, alert, obeys commands. Cardiovascular: Patient's skin is warm and dry. Respiratory: Airway is patent Respiratory effort is even, unlabored. Derm: Rash noted that is papular, red, raised, on left gnosticism, left ear, left zygomatic area, left cheek, right gnosticism and right zygomatic area. 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 - Social history:: Smoking status: Patient denies any tobacco usage or history of. Screenin:46 Abuse screen: Denies threats or abuse. Denies injuries from another. Nutritional lp1 screening: No deficits noted. Tuberculosis screening: No symptoms or risk factors identified. Fall Risk None identified. Assessment: 23:20 General: Appears in no apparent distress. uncomfortable, Behavior is calm, cooperative, eb1 appropriate for age. Pain: Complains of pain in left ear Pain currently is 8 out of 10 on a pain scale. Neuro: No deficits noted. Cardiovascular: No deficits noted. Respiratory: No deficits noted. GI: No deficits noted. No signs and/or symptoms were reported involving the gastrointestinal system. : No deficits noted. No signs and/or symptoms were reported regarding the genitourinary system. EENT: No deficits noted. No signs and/or symptoms were reported regarding the EENT system. Derm: No deficits noted. No signs and/or symptoms reported regarding the dermatologic system. Musculoskeletal: No deficits noted. No signs and/or symptoms reported regarding the musculoskeletal system. 11/15 00:05 Reassessment: Patient appears in no apparent distress at this time. No changes from eb1 previously documented assessment. Patient and/or family updated on plan of care and expected duration. Pain level reassessed. Patient is alert, oriented x 3, equal unlabored respirations, skin warm/dry/pink. Patient states feeling better. Patient states symptoms have improved. Vital Signs: 04 22:42 BP 141 / 91; Pulse 64; Resp 18; Temp 97.2(TE); Pulse Ox 100% on R/A; Weight 73.48 kg lp1 (R); Height 5 ft. 5 in. (165.10 cm); 23:21 BP 141 / 92; Pulse 64; Resp 16; Temp 98.8; Pulse Ox 100% ; Pain 8/10; eb1 22:42 Body Mass Index 26.96 (73.48 kg, 165.10 cm) lp1 ED Course: 22:16 Patient arrived in ED. kz 22:45 Triage completed. lp1 22:45 Tyson Momin NP is PHCP. pm1 22:45 Robert Hargrove MD is Attending Physician. pm1 22:45 Arm band placed on. lp1 22:46 Patient has correct armband on for positive identification. lp1 22:46 No provider procedures requiring assistance completed. lp1 23:21 Inserted saline lock: 22 gauge in left antecubital area, using aseptic technique. eb1 11/15 00:05 No apparent distress. Awaiting disposition. eb1 00:05 IV discontinued, intact, bleeding controlled, No redness/swelling at site. Pressure eb1 dressing applied. Administered Medications: 11/14 23:20 Drug: Ketorolac 30 mg Route: IVP; Site: left antecubital; eb1 23:57 Follow up: Response: No adverse reaction eb1 23:20 Drug: Benadryl (diphenhydrAMINE) 12.5 mg Route: IVP; Site: left antecubital; eb1 23:36 Drug: Pepcid (famotidine) 20 mg Route: IVP; Site: left antecubital; eb1 23:57 Follow up: Response: No adverse reaction eb1 23:37 Drug: Decadron - Dexamethasone 10 mg Route: IVP; Site: left antecubital; eb1 23:57 Follow up: Response: No adverse reaction; Pain is decreased eb1 Outcome: 23:50 Discharge ordered by MD. pm1 23:58 Condition: improved eb1 11/15 00:05 Discharged to home ambulatory. eb1 Discharge instructions given to patient, Instructed on discharge instructions, follow up and referral plans. Demonstrated understanding of instructions, follow-up care, medications, Prescriptions given X 4. 00:19 Patient left the ED. eb1 Signatures: Malka Godfrey RN RN lp1 Tyson Momin NP ACID MAKER pm1 Maura Ulrich RN RN eb1 Gerda Vázquez
[2021-11-15 03:35] VITALS: O2SAT 100
[2021-11-15 03:37] VITALS: BP 141/92; TEMP 98.8
== END 2021-11-15 00:19 | disposition home or self-care (01) ==
LOC: ER 22:12
DX: L50.9 Urticaria, unspecified (principal); I10 Essential (primary) hypertension; Z88.1 Allergy status to other antibiotic agents
CPT/HCPCS: 96375; 96374; 99283; J1200; J1100

== ENCOUNTER 2022-01-05 04:45 | Emergency (ER) | payer BC ==
--- OUTSIDE RECORDS SUMMARY | 2022-01-05 04:48 | XMS REPORT | Continuity of Care Document ---
:1965 Author Organization [facility] t Address [address] [place] [address] Care Team Providers Name Role Phone PCP, [...] 1-10 it y of adult adult 00:00: [place] 00 Medical Branch Prolapse Prolapse Disease Active [...] ity of management [place] [facility] Branch Acute Acute Disease Active 2014-08 Univers cystitis cystitis 1-11 ity of without without 00:00: [place] hematuria hematuria 00 [facility] Allergies, Adverse Reactions, Alerts Allergy Allergy Status Severity Reaction(s) Onset Inactive Treating Comm ents Source Name Type Date Date Clinician NO KNOWN Drug Active Univers ALLERGIE Class ity of S [facility] Social History Social Habit Start Date Stop Date Quantity Comments Source Exposure to Not sure [facility] SARS-CoV-2 (event) Medica l Branch Alcohol intake 2020-01-27 2020-01-27 0 /d [facility] 00:00:00 00:00:00 [facility] Tobacco use and 2013-11-20 2013-11-20 Never used [facility] exposure 00:00:00 00:00:00 [facility] Sex [birth year] At [birth year] [facility] 00:00:00 00:00:00 [facility] Smoking Status Start Date Stop Date Source Never smoker [facility] Medications Ordered Filled Start Stop Current Ordering Indication Dosage Frequency Signature Comments Components Source Medication Medication Date Date Medication? Clinician (SIG) Name Name pantoprazol Yes [id number] 40mg Take 1 Univers e 40 mg EC 6-22 tablet by ity of tablet 00:00: [facility] 00 daily. Medical Branch pantoprazol Yes [id number] 40mg Take 1 Univers e 40 mg EC 6-22 tablet by ity of tablet 00:00: mouth [place] 00 daily. Medical Branch pantoprazol 2019-0 Yes [id number] 40mg Take 1 Univers e 40 mg EC 6-22 tablet by ity of tablet 00:00: mouth [place] 00 daily. Medical Branch pantoprazol 2019-0 Yes [id number] 40mg Take 1 Univers e 40 mg EC 6-22 tablet by ity of tablet 00:00: mouth [place] 00 daily. Medical Branch pantoprazol 2019-0 Yes [id number] 40mg Take 1 Univers e 40 mg EC 6-22 tablet by ity of tablet 00:00: mouth [place] 00 daily. Medical Branch pantoprazol 2019-0 Yes [id number] 40mg Take 1 Univers e 40 mg EC 6-22 tablet by ity of tablet 00:00: mouth [place] 00 daily. Medical Branch pantoprazol 2019-0 Yes [id number] 40mg Take 1 Univers e 40 mg EC 6-22 tablet by ity of tablet 00:00: mouth [place] 00 daily. Medical Branch pantoprazol 2019-0 Yes [id number] 40mg Take 1 Univers e 40 mg EC 6-22 tablet by ity of tablet 00:00: mouth [place] 00 daily. Medical Branch pantoprazol 2019-0 Yes [id number] 40mg Take 1 Univers e 40 mg EC 6-22 tablet by ity of tablet 00:00: mouth [place] 00 daily. Medical Branch pantoprazol 2019-0 Yes [id number] 40mg Take 1 Univers e 40 mg EC 6-22 tablet by ity of tablet 00:00: mouth [place] 00 daily. Medical Branch traMADOL 2019-0 Yes [id number] 50mg Take 1 Uni vers (ULTRAM) 50 3-10 tablet by ity of mg tablet 00:00: mouth [place] 00 every 6 Medical (six) Branch hours as needed for Pain (scale 7-10). clindamycin 2019-0 Yes [id number] 300mg Take 1 Univers 300 mg 3-10 capsule by ity of capsule 00:00: mouth 3 [place] 00 (three) Medical times Branch daily. traMADOL 2019-0 Yes [id number] 50mg Take 1 Uni vers (ULTRAM) 50 3-10 tablet by ity of mg tablet 00:00: mouth [place] 00 every 6 Medical (six) Branch hours as needed for Pain (scale 7-10). clindamycin 2019-0 Yes [id number] 300mg Take 1 Univers 300 mg 3-10 capsule by ity of capsule 00:00: mouth 3 00 (three) Medical times Branch daily. traMADOL 2019-0 Yes [id number] 50mg Take 1 Uni vers (ULTRAM) 50 3-10 tablet by ity of mg tablet 00:00: mouth [place] 00 every 6 Medical (six) Branch hours as needed for Pain (scale 7-10). clindamycin 2019-0 Yes [id number] 300mg Take 1 Univers 300 mg 3-10 capsule by ity of capsule 00:00: mouth 3 00 (three) Medical times Branch daily. traMADOL 2019-0 Yes [id number] 50mg Take 1 Uni vers (ULTRAM) 50 3-10 tablet by ity of mg tablet 00:00: mouth [place] 00 every 6 Medical (six) Branch hours as needed for Pain (scale 7-10). clindamycin 2019-0 Yes [id number] 300mg Take 1 Univers 300 mg 3-10 capsule by ity of capsule 00:00: mouth (three) Medical times Branch daily. traMADOL 2019-0 Yes [id number] 50mg Take 1 Uni vers (ULTRAM) 50 3-10 tablet by ity of mg tablet 00:00: mouth [place] 00 every 6 Medical (six) Branch hours as needed for Pain (scale 7-10). clindamycin 2019-0 Yes [id number] 300mg Take 1 Univers 300 mg 3-10 capsule by ity of capsule 00:00: mouth (three) Medical times Branch daily. traMADOL 2019-0 Yes [id number] 50mg Take 1 Uni vers (ULTRAM) 50 3-10 tablet by ity of mg tablet 00:00: mouth [place] 00 every 6 Medical (six) Branch hours as needed for Pain (scale 7-10). clindamycin 2019-0 Yes [id number] 300mg Take 1 Univers 300 mg 3-10 capsule by ity of capsule 00:00: mouth 3 00 (three) Medical times Branch daily. traMADOL 2019-0 Yes [id number] 50mg Take 1 Uni vers (ULTRAM) 50 3-10 tablet by ity of mg tablet 00:00: mouth [place] 00 every 6 Medical (six) Branch hours as needed for Pain (scale 7-10). clindamycin 2019-0 Yes [id number] 300mg Take 1 Univers 300 mg 3-10 capsule by ity of capsule 00:00: mouth 3 (three) Medical times Branch daily. traMADOL 2019-0 Yes [id number] 50mg Take 1 Uni vers (ULTRAM) 50 3-10 tablet by ity of mg tablet 00:00: mouth [place] 00 every 6 Medical (six) Branch hours as needed for Pain (scale 7-10). clindamycin 2019-0 Yes [id number] 300mg Take 1 Univers 300 mg 3-10 capsule by ity of capsule 00:00: mouth 3 (three) Medical times Branch daily. traMADOL 2019-0 Yes [id number] 50mg Take 1 Uni vers (ULTRAM) 50 3-10 tablet by ity of mg tablet 00:00: mouth [place] 00 every 6 Medical (six) Branch hours as needed for Pain (scale 7-10). clindamycin 2019-0 Yes [id number] 300mg Take 1 Univers 300 mg 3-10 capsule by ity of capsule 00:00: mouth (three) Medical times Branch daily. traMADOL 2019-0 Yes [id number] 50mg Take 1 Uni vers (ULTRAM) 50 3-10 tablet by ity of mg tablet 00:00: mouth [place] 00 every 6 Medical (six) Branch hours as needed for Pain (scale 7-10). clindamycin 2019-0 Yes [id number] 300mg Take 1 Univers 300 mg 3-10 capsule by ity of capsule 00:00: mouth (three) Medical times Branch daily. traMADOL 2019-0 Yes [id number] 50mg Take 1 Uni vers (ULTRAM) 50 3-10 tablet by ity of mg tablet 00:00: mouth [place] 00 every 6 Medical (six) Branch hours as needed for Pain (scale 7-10). clindamycin 2019-0 Yes [id number] 300mg Take 1 Univers 300 mg 3-10 [...] 00:00: mouth [place] 00 every Medical morning. [place] Immunizations Ordered Filled Immunization Date Status Comments [facility] e Immunization Name Name TDAP (ADACEL) 2015-02-04 Completed University of VACCINE 00:00:00 [facility] TDAP (ADACEL) 2015-02-04 Completed University of VACCINE 00:00:00 [facility] TDAP (ADACEL) 2015-02-04 Completed University of VACCINE 00:00:00 [facility] TDAP (ADACEL) 2015-02-04 Completed University of VACCINE 00:00:00 [facility] TDAP (ADACEL) 2015-02-04 Completed University of VACCINE 00:00:00 [facility] TDAP (ADACEL) 2015-02-04 Completed University of VACCINE 00:00:00 [facility] TDAP (ADACEL) 2015-02-04 Completed University of VACCINE 00:00:00 [facility] TDAP (ADACEL) 2015-02-04 Completed University of VACCINE 00:00:00 [facility] TDAP (ADACEL) 2015-02-04 Completed University of VACCINE 00:00:00 [facility] TDAP (ADACEL) 2015-02-04 Completed University of VACCINE 00:00:00 [facility] TDAP (ADACEL) 2015-02-04 Completed University of VACCINE 00:00:00 [facility] Vital Signs Vital Name Observation Time Observation Value Comments Source Systolic blood 2020-01-27 15:55:00 126 mm[Hg] Univer sity of pressure [facility] Diastolic blood 2020-01-27 15:55:00 89 mm[Hg] Unive rsity of pressure [facility] Heart rate 2020-01-27 15:55:00 83 /min Universi ty of [facility] Body temperature 2020-01-27 15:55:00 36.33 Rossi Univ ersity of [facility] Body height 2020-01-27 15:55:00 165.1 cm Universi ty of [facility] Body weight 2020-01-27 15:55:00 87.907 kg Universi ty of [facility] BMI 2020-01-27 15:55:00 32.25 kg/m2 Universi ty of [facility] Systolic blood 2020-01-27 15:55:00 126 mm[Hg] Univer sity of pressure [facility] Diastolic blood 2020-01-27 15:55:00 89 mm[Hg] Unive rsity of pressure [facility] Heart rate 2020-01-27 15:55:00 83 /min Universi ty of [facility] Body temperature 2020-01-27 15:55:00 36.33 Rossi Univ ersity of [facility] Body height 2020-01-27 15:55:00 165.1 cm Universi ty of [facility] Body weight 2020-01-27 15:55:00 87.907 kg Universi ty of [place] Medical Branch BMI 2020-01-27 15:55:00 32.25 kg/m2 Universi ty of [facility] Branch Procedures Procedure Date / Time Performed Performing Clinician Abdon e EXTERNAL PROVIDER 2021-02-17 05:01:00 Doctor Unassigned, No Univ ersity of [place] RECORDS Name Medical Branch EXTERNAL PROVIDER 2020-03-02 05:01:00 Doctor Unassigned, No Univ ersity [facility] RECORDS Name Medical Branch ASSIGNMENT OF BENEFITS 2020-01-27 15:36:07 Doctor Unassigned, No [facility] Name Medical Branch Encounters Start End Encounter Admission Attending Care Care Encounter Source Date/Time Date/Time Type Type Clinicians Facility Department ID 2021-09-01 2021-09-01 Laboratory Only, Adc Pob2 Test [facility] 1.2 .840.114 [id number] Univers 11:00:00 11:15:00 Only Gibran Pisano 350.1.13 .10 ity [facility] 4[place]2.7.2.[place] [id number] Hi dical NAL [address] [place] [address] 2021-09-01 2021-09-01 Outpatient R SELENA [facility] [id number] Univers 11:00:00 11:05:11 GIBRAN ity [facility] 2021-09-01 2021-09-01 Outpatient R [facility] [id number] Univers 11:00:00 11:00:00 [id number] ity [facility] 2021-09-01 2021-09-01 Telephone ONEISMO Tineo [id number] Univers 00:00:00 00:00:00 Izabela DAWSON 350.1.13.10 it [facility] [id number] Isaías as [id number] [address] 2021-08-30 2021-08-30 Outpatient R SELENA [facility] [id number] Univers 10:30:00 10:41:00 GIBRAN whitman [facility] 2021-08-30 2021-08-30 Laboratory Only, Adc Pob2 Test [facility] 1.2 .840.114 [id number] Univers 10:30:00 10:41:00 Only Gibran Pisano 350.1.13 .10 ity [facility] 4[place].2.[place] [id number] Hi dical NAL [address] [place] [address] 2021-08-30 2021-08-30 Outpatient R [facility] [id number] Univers 10:30:00 10:30:00 [id number] ity [facility] 2021-08-30 2021-08-30 Letter ONESIMO Garcia 1.2.840.114 [id number] Univers 00:00:00 00:00:00 (Out) Elicia T EUNICE 350.1.13.10 it y of HOSPITAL 4.2.7.2.686 Isaías as [phone] [facility] 019 Branch 2021-02-17 2021-02-17 Orders Doctor ONESIMO 1.2.840.114 [id number] Univers 00:00:00 00:00:00 Only Unassigned, EUNICE 350.1.13.10 ity of [place] [facility] 4.2.7.2.686 Isaías as [id number] [facility] 009 Branch 2021-02-09 2021-02-09 Telephone Jarett, UNIVERSIT 1.2.840.114 [id number] Univers 00:00:00 00:00:00 Annmarie E Y HEALTH 350.1.13.10 ity of [place] [id number] [address] 2020-03-02 2020-03-02 Orders Doctor ONESIMO 1.2.840.114 [id number] 00:00:00 00:00:00 Only Unassigned, EUNICE 350.1.13.10 [place] [facility] 4.2.7.2.686 [id number] [facility] 2020-03-02 2020-03-02 Orders Doctor ONESIMO 1.2.840.114 [id number] Univers 00:00:00 00:00:00 Only Unassigned, EUNICE 350.1.13.10 ity of [place] [facility] 4.2.7.2.686 Isaías as [id number] [address] 2020-02-24 2020-02-24 [facility] [id number] Univers 10:30:00 10:30:00 ANNMARIE ity o f [facility] 2020-02-24 2020-02-24 [facility] [id number] Univers 10:30:00 10:30:00 ANNMARIE [id number] ity o f [facility] 2020-02-13 2020-02-13 Ancillary Elijah, UNIVERSIT 1.2.840.114 [id number] 11:00:12 11:30:12 Visit Gal Speech Y 350.1.13.10 Modified NATIONAL 4.2.7.2.686 [facility] [id number] BLDG. 145 2020-02-13 2020-02-13 Ancillary Swallows, Gal Speech Modifie d Barium UNIVERSIT 1.2.840.114 [id number] Univers 11:00:12 11:30:12 Visit Mckeon, Yee Ross 350.1.13.10 ity of [facility] 4.2.7.2.686 Isaías as BANK [id number] [facility] BLDG. 145 Branch 2020-02-13 2020-02-13 [facility] [id number] Univers 09:00:00 09:00:00 ANNMARIE [id number] ity o f [facility] 2020-02-13 2020-02-13 [facility] [id number] Univers 09:00:00 09:00:00 YEE whitman of [facility] 2020-01-27 2020-01-27 Office [facility], [facility] [id number] 10:43:44 11:39:23 Visit Annmarie E Y HEALTH 350.1.13.10 CLINICS 4.2.7.2.686 [id number] [facility] 2020-01-27 2020-01-27 Office [facility] [id number] Univers 10:43:44 11:39:23 Visit Annmarie E Y HEALTH 350.1.13.10 ity of [facility] 4.2.7.2.[place] [id number] [place] [address] Branch 2020-01-27 2020-01-27 [facility] [id number] Univers 10:30:00 10:30:00 ANNMARIE [id number] ity o f [facility] 2020-01-27 2020-01-27 [facility] [id number] Univers 10:30:00 10:30:00 ANNMARIE ity o f [facility] 2020-01-27 2020-01-27 Orders Doctor ECHOLS 1.2.840.114 [id number] Univers 00:00:00 00:00:00 Only Unassigned, EUNICE 350.1.13.10 ity of [place] [facility] 4.2.7.2.686 Isaías as [phone] Medi tuyet 009 Branch Results This patient has no known results.
--- NOTE | 2022-01-05 06:58 | ER ---
Nurse's Notes [facility] Name: Mi Ortiz Age: 56 yrs Sex: Female : 1965 Arrival Date: 01/05/2022 Time: 04:49 Bed 26 Private MD: Diagnosis: Presentation: 01/05 05:50 Chief complaint: Patient states: States yesterday throat was hurting, then today the ll3 pain is also in right ear and right eye, c/o pain 05/16. Coronavirus screen: Vaccine status: Patient reports receiving the 2nd dose of the covid vaccine. At this time, the client does not indicate any symptoms associated with coronavirus-19. Ebola Screen: No symptoms or risks identified at this time. Initial Sepsis Screen: Does the patient meet any 2 criteria? No. Patient's initial sepsis screen is negative. Does the patient have a suspected source of infection? No. Patient's initial sepsis screen is negative. Risk Assessment: Do you want to hurt yourself or someone else? Patient reports no desire to harm self or others. Onset of symptoms was January 04, 2022. 05:50 Method Of Arrival: Ambulatory ll3 05:50 Acuity: CARMEN 3 ll3 Triage Assessment: 05:52 General: Appears comfortable, Behavior is cooperative, crying. Pain: Complains of pain ll3 in left aspect of posterior pharynx and right aspect of posterior pharynx, right ear, right eye Pain currently is 10 out of 10 on a pain scale. Pain began 1 day ago. Is continuous. EENT: Reports pain in left aspect of posterior pharynx and right aspect of posterior pharynx Right ear and right eye pain since this morning. Neuro: No deficits noted. Respiratory: Respiratory effort is even, unlabored, Respiratory pattern is regular, symmetrical. Derm: Skin is pink, warm \T\ dry. 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 - Social history:: Smoking status: Patient denies any tobacco usage or history of. Screenin:55 Abuse screen: Denies threats or abuse. Nutritional screening: No deficits noted. ll3 Tuberculosis screening: No symptoms or risk factors identified. Assessment: 05:55 General: See triage assessment. ll3 Vital Signs: 05:50 BP 154 / 103; Pulse 68; Resp 15; Temp 97.8(TE); Pulse Ox 100% on R/A; Weight 72.57 kg ll3 (R); Height 5 ft. 5 in. (165.10 cm) (R); Pain 10/10; 05:50 Body Mass Index 26.63 (72.57 kg, 165.10 cm) ll3 ED Course: 04:49 Patient arrived in ED. bp1 05:50 Padmini Thomson, RN is Primary Nurse. 3 05:52 Triage completed. 3 05:52 Arm band placed on Patient placed in an exam room, on a stretcher, on pulse oximetry. ll3 05:55 Patient has correct armband on for positive identification. Bed in low position. Call 3 light in reach. Side rails up X 1. 06:52 Robert Hargrove MD is Attending Physician. [facility] 06:56 No provider procedures requiring assistance completed. Patient did not have IV access ll3 during this emergency room visit. Administered Medications: No medications were administered Outcome: 06:56 Eloped from patient exam room, before seeing physician 3 06:56 Condition: stable 06:57 Patient left the ED. 3 Signatures: Ofelia Joel Maurice, MD MD [facility] Padmini Thomson, RN RN 3
[2022-01-05 07:17] VITALS: BP 154/103; TEMP 97.8; O2SAT 100
== END 2022-01-05 06:57 | disposition left against medical advice (07) ==
LOC: ER 04:45
DX: Z53.21 Procedure and treatment not carried out due to patient leaving prior to being seen by health care provider (principal)
CPT/HCPCS: 99282

== ENCOUNTER 2022-01-14 18:06 | Emergency (ER) | payer BC ==
--- OUTSIDE RECORDS SUMMARY | 2022-01-14 18:10 | XMS REPORT | Continuity of Care Document ---
:1965 Author Organization [facility] t Address [address] [place] [address] Care Team Providers Name Role Phone PCP, [...] 1-10 it y of adult adult 00:00: [place] 00 Medical Branch Prolapse Prolapse Disease Active [...] it[place] of management [place] [facility] Acute Acute Disease Active 2014-08 Univers cystitis cystitis 1-11 ity of without without 00:00: [place] hematuria hematuria 00 [facility] Allergies, Adverse Reactions, Alerts Allergy Allergy Status Severity Reaction(s) Onset Inactive Treating Comm ents Source Name Type Date Date Clinician NO KNOWN Drug Active Univers ALLERGIE Class ity of S [facility] Social History Social Habit Start Date Stop Date Quantity Comments Source Exposure to Not sure [facility] SARS-CoV-2 (event) Medica l Branch Alcohol intake 2020-01-27 2020-01-27 0 /d [facility] 00:00:00 00:00:00 [facility] Tobacco use and 2013-11-20 2013-11-20 Never used [facility] exposure 00:00:00 00:00:00 [facility] Sex [birth year] At [birth year] [facility] 00:00:00 00:00:00 [facility] Smoking Status Start Date Stop Date Source Never smoker [facility] Medications Ordered Filled Start Stop Current Ordering Indication Dosage Frequency Signature Comments Components Source Medication Medication Date Date Medication? Clinician (SIG) Name Name pantoprazol Yes [id number] 40mg Take 1 Univers e 40 mg EC 6-22 tablet by ity of tablet 00:00: [facility] 00 daily. Medical Branch pantoprazol Yes [id number] 40mg Take 1 Univers e 40 mg EC 6-22 tablet by ity of tablet 00:00: mouth [place] 00 daily. Medical Branch pantoprazol 2019-0 Yes [id number] 40mg Take 1 Univers e 40 mg EC 6-22 tablet by ity of tablet 00:00: mouth [place] 00 daily. Medical Branch pantoprazol 2019-0 Yes [id number] 40mg Take 1 Univers e 40 mg EC 6-22 tablet by ity of tablet 00:00: mouth [place] 00 daily. Medical Branch pantoprazol 2019-0 Yes [id number] 40mg Take 1 Univers e 40 mg EC 6-22 tablet by ity of tablet 00:00: mouth [place] 00 daily. Medical Branch pantoprazol 2019-0 Yes [id number] 40mg Take 1 Univers e 40 mg EC 6-22 tablet by ity of tablet 00:00: mouth [place] 00 daily. Medical Branch pantoprazol 2019-0 Yes [id number] 40mg Take 1 Univers e 40 mg EC 6-22 tablet by ity of tablet 00:00: mouth [place] 00 daily. Medical Branch pantoprazol 2019-0 Yes [id number] 40mg Take 1 Univers e 40 mg EC 6-22 tablet by ity of tablet 00:00: mouth [place] 00 daily. Medical Branch pantoprazol 2019-0 Yes [id number] 40mg Take 1 Univers e 40 mg EC 6-22 tablet by ity of tablet 00:00: mouth [place] 00 daily. Medical Branch pantoprazol 2019-0 Yes [id number] 40mg Take 1 Univers e 40 mg EC 6-22 tablet by ity of tablet 00:00: mouth [place] 00 daily. Medical Branch traMADOL 2019-0 Yes [id number] 50mg Take 1 Uni vers (ULTRAM) 50 3-10 tablet by ity of mg tablet 00:00: mouth [place] 00 every 6 Medical (six) Branch hours as needed for Pain (scale 7-10). clindamycin 2019-0 Yes [id number] 300mg Take 1 Univers 300 mg 3-10 capsule by ity of capsule 00:00: mouth 3 [place] 00 (three) Medical times Branch daily. traMADOL 2019-0 Yes [id number] 50mg Take 1 Uni vers (ULTRAM) 50 3-10 tablet by ity of mg tablet 00:00: mouth [place] 00 every 6 Medical (six) Branch hours as needed for Pain (scale 7-10). clindamycin 2019-0 Yes [id number] 300mg Take 1 Univers 300 mg 3-10 capsule by ity of capsule 00:00: mouth 3 00 (three) Medical times Branch daily. traMADOL 2019-0 Yes [id number] 50mg Take 1 Uni vers (ULTRAM) 50 3-10 tablet by ity of mg tablet 00:00: mouth [place] 00 every 6 Medical (six) Branch hours as needed for Pain (scale 7-10). clindamycin 2019-0 Yes [id number] 300mg Take 1 Univers 300 mg 3-10 capsule by ity of capsule 00:00: mouth 3 00 (three) Medical times Branch daily. traMADOL 2019-0 Yes [id number] 50mg Take 1 Uni vers (ULTRAM) 50 3-10 tablet by ity of mg tablet 00:00: mouth [place] 00 every 6 Medical (six) Branch hours as needed for Pain (scale 7-10). clindamycin 2019-0 Yes [id number] 300mg Take 1 Univers 300 mg 3-10 capsule by ity of capsule 00:00: mouth (three) Medical times Branch daily. traMADOL 2019-0 Yes [id number] 50mg Take 1 Uni vers (ULTRAM) 50 3-10 tablet by ity of mg tablet 00:00: mouth [place] 00 every 6 Medical (six) Branch hours as needed for Pain (scale 7-10). clindamycin 2019-0 Yes [id number] 300mg Take 1 Univers 300 mg 3-10 capsule by ity of capsule 00:00: mouth (three) Medical times Branch daily. traMADOL 2019-0 Yes [id number] 50mg Take 1 Uni vers (ULTRAM) 50 3-10 tablet by ity of mg tablet 00:00: mouth [place] 00 every 6 Medical (six) Branch hours as needed for Pain (scale 7-10). clindamycin 2019-0 Yes [id number] 300mg Take 1 Univers 300 mg 3-10 capsule by ity of capsule 00:00: mouth 3 00 (three) Medical times Branch daily. traMADOL 2019-0 Yes [id number] 50mg Take 1 Uni vers (ULTRAM) 50 3-10 tablet by ity of mg tablet 00:00: mouth [place] 00 every 6 Medical (six) Branch hours as needed for Pain (scale 7-10). clindamycin 2019-0 Yes [id number] 300mg Take 1 Univers 300 mg 3-10 capsule by ity of capsule 00:00: mouth 3 (three) Medical times Branch daily. traMADOL 2019-0 Yes [id number] 50mg Take 1 Uni vers (ULTRAM) 50 3-10 tablet by ity of mg tablet 00:00: mouth [place] 00 every 6 Medical (six) Branch hours as needed for Pain (scale 7-10). clindamycin 2019-0 Yes [id number] 300mg Take 1 Univers 300 mg 3-10 capsule by ity of capsule 00:00: mouth 3 (three) Medical times Branch daily. traMADOL 2019-0 Yes [id number] 50mg Take 1 Uni vers (ULTRAM) 50 3-10 tablet by ity of mg tablet 00:00: mouth [place] 00 every 6 Medical (six) Branch hours as needed for Pain (scale 7-10). clindamycin 2019-0 Yes [id number] 300mg Take 1 Univers 300 mg 3-10 capsule by ity of capsule 00:00: mouth (three) Medical times Branch daily. traMADOL 2019-0 Yes [id number] 50mg Take 1 Uni vers (ULTRAM) 50 3-10 tablet by ity of mg tablet 00:00: mouth [place] 00 every 6 Medical (six) Branch hours as needed for Pain (scale 7-10). clindamycin 2019-0 Yes [id number] 300mg Take 1 Univers 300 mg 3-10 capsule by ity of capsule 00:00: mouth (three) Medical times Branch daily. traMADOL 2019-0 Yes [id number] 50mg Take 1 Uni vers (ULTRAM) 50 3-10 tablet by ity of mg tablet 00:00: mouth [place] 00 every 6 Medical (six) Branch hours as needed for Pain (scale 7-10). clindamycin 2019-0 Yes [id number] 300mg Take 1 Univers 300 mg 3-10 [...] 00:00: mouth [place] 00 every Medical morning. [place] Immunizations Ordered Filled Immunization Date Status Comments [facility] Immunization Name Name TDAP (ADACEL) 2015-02-04 Completed University of VACCINE 00:00:00 [facility] TDAP (ADACEL) 2015-02-04 Completed University of VACCINE 00:00:00 [facility] TDAP (ADACEL) 2015-02-04 Completed University of VACCINE 00:00:00 [facility] TDAP (ADACEL) 2015-02-04 Completed University of VACCINE 00:00:00 [facility] TDAP (ADACEL) 2015-02-04 Completed University of VACCINE 00:00:00 [facility] TDAP (ADACEL) 2015-02-04 Completed University of VACCINE 00:00:00 [facility] TDAP (ADACEL) 2015-02-04 Completed University of VACCINE 00:00:00 [facility] TDAP (ADACEL) 2015-02-04 Completed University of VACCINE 00:00:00 [facility] TDAP (ADACEL) 2015-02-04 Completed University of VACCINE 00:00:00 [facility] TDAP (ADACEL) 2015-02-04 Completed University of VACCINE 00:00:00 [facility] TDAP (ADACEL) 2015-02-04 Completed University of VACCINE 00:00:00 [facility] Vital Signs Vital Name Observation Time Observation Value Comments Source Systolic blood 2020-01-27 15:55:00 126 mm[Hg] Univer sity of pressure [facility] Diastolic blood 2020-01-27 15:55:00 89 mm[Hg] Unive rsity of pressure [facility] Heart rate 2020-01-27 15:55:00 83 /min Universi ty of [facility] Body temperature 2020-01-27 15:55:00 36.33 Rossi Univ ersity of [facility] Body height 2020-01-27 15:55:00 165.1 cm Universi ty of [facility] Body weight 2020-01-27 15:55:00 87.907 kg Universi ty of [facility] BMI 2020-01-27 15:55:00 32.25 kg/m2 Universi ty of [facility] Systolic blood 2020-01-27 15:55:00 126 mm[Hg] Univer sity of pressure [facility] Diastolic blood 2020-01-27 15:55:00 89 mm[Hg] Unive rsity of pressure [facility] Heart rate 2020-01-27 15:55:00 83 /min Universi ty of [facility] Body temperature 2020-01-27 15:55:00 36.33 Rossi Univ ersity of [facility] Body height 2020-01-27 15:55:00 165.1 cm Universi ty of [facility] Body weight 2020-01-27 15:55:00 87.907 kg Universi ty of [place] Medical Branch BMI 2020-01-27 15:55:00 32.25 kg/m2 Universi ty of [facility] Branch Procedures Procedure Date / Time Performed Performing Clinician Abdon e EXTERNAL PROVIDER 2021-02-17 05:01:00 Doctor Unassigned, No Univ ersity of [place] RECORDS Name Medical Branch EXTERNAL PROVIDER 2020-03-02 05:01:00 Doctor Unassigned, No Univ ersity [facility] RECORDS Name Medical Branch ASSIGNMENT OF BENEFITS 2020-01-27 15:36:07 Doctor Unassigned, No [facility] Name Medical Branch Encounters Start End Encounter Admission Attending Care Care Encounter Source Date/Time Date/Time Type Type Clinicians Facility Department ID 2021-09-01 2021-09-01 Laboratory Only, Adc Pob2 Test [facility] 1.2 .840.114 [id number] Univers 11:00:00 11:15:00 Only Gibran Pisano 350.1.13 .10 ity [facility] [place].2.[place] [phone] Ne dical NAL [address] [place] [address] 2021-09-01 2021-09-01 Outpatient R SELENA [facility] [id number] Univers 11:00:00 11:05:11 GIBRAN ity [facility] 2021-09-01 2021-09-01 Outpatient R [facility] [id number] Univers 11:00:00 11:00:00 [id number] ity [facility] 2021-09-01 2021-09-01 Telephone ONESIMO Tineo [id number] Univers 00:00:00 00:00:00 Izabela DAWSON 350.1.13.10 it [facility] [id number] Isaías as [id number] [address] 2021-08-30 2021-08-30 Outpatient R SELENA [facility] [id number] Univers 10:30:00 10:41:00 GIBRAN whitman [facility] 2021-08-30 2021-08-30 Laboratory Only, Adc Pob2 Test [facility] 1.2 .840.114 [id number] Univers 10:30:00 10:41:00 Only Gibran Pisano 350.1.13 .10 ity [facility] 4[place] [id number] Ne dical NAL [address] [place] [address] 2021-08-30 2021-08-30 Outpatient R [facility] [id number] Univers 10:30:00 10:30:00 [id number] ity [facility] 2021-08-30 2021-08-30 Letter ONESIMO Garcia 1.2.840.114 [id number] Univers 00:00:00 00:00:00 (Out) Elicia T EUNICE [id number] it y of HOSPITAL 4.2.7.2.686 Isaías as [id number] [facility] 019 Branch 2021-02-17 2021-02-17 Orders Doctor ONESIMO 1.2.840.114 [id number] Univers 00:00:00 00:00:00 Only Unassigned, EUNICE [id number] ity of [facility] 4.2.7.2.686 Isaías as [phone] [facility] 009 Branch 2021-02-09 2021-02-09 Telephone Jarett, UNIVERSIT 1.2.840.114 [id number] Univers 00:00:00 00:00:00 Annmarie E Y HEALTH [id number] ity of CL[place] [id number] [address] 2020-03-02 2020-03-02 Orders Doctor ONESIMO 1.2.840.114 [id number] 00:00:00 00:00:00 Only Unassigned, EUNICE 350.1.13.10 [facility] 4.2.7.2.686 [id number] [facility] 2020-03-02 2020-03-02 Orders Doctor ONESIMO 1.2.840.114 [id number] Univers 00:00:00 00:00:00 Only Unassigned, EUNICE [id number] ity of [facility] 4.2.7.2.686 Isaías as [id number] [address] 2020-02-24 2020-02-24 [facility] [id number] Univers 10:30:00 10:30:00 ANNMARIE ity o f [facility] 2020-02-24 2020-02-24 [facility] [id number] Univers 10:30:00 10:30:00 ANNMARIE [id number] ity o f [facility] 2020-02-13 2020-02-13 Ancillary Elijah, UNIVERSIT 1.2.840.114 [id number] 11:00:12 11:30:12 Visit Gal Speech Y 350.1.13.10 Modified NATIONAL 4.2.7.2.686 [facility] BANK [phone] BLDG. 145 2020-02-13 2020-02-13 Ancillary Swallows, Gal Speech Modifie d Barium UNIVERSIT 1.2.840.114 [id number] Univers 11:00:12 11:30:12 Visit Mckeon, Yee Ross 350.1.13.10 ity of [facility] 4.2.7.2.686 Isaías as BANK [phone] [facility] BLDG. 145 Branch 2020-02-13 2020-02-13 [facility]patient [facility] [id number] Univers 09:00:00 09:00:00 ANNMARIE [id number] ity o f [facility] 2020-02-13 2020-02-13 [facility] [id number] Univers 09:00:00 09:00:00 YEE whitman of [facility] 2020-01-27 2020-01-27 Office [facility], [facility] [id number] 10:43:44 11:39:23 Visit Annmarie E Y HEALTH 350.1.13.10 CLINICS [id number] [facility] 2020-01-27 2020-01-27 Office [facility] [id number] Univers 10:43:44 11:39:23 Visit Annmarie E Y HEALTH 350.1.13.10 ity of [facility] 4.2.7.2.[place] [phone] [place] [address] Branch 2020-01-27 2020-01-27 [facility] [id number] Univers 10:30:00 10:30:00 ANNMARIE [id number] ity o f [facility] 2020-01-27 2020-01-27 [facility] [id number] Univers 10:30:00 10:30:00 ANNMARIE ity o f [facility] 2020-01-27 2020-01-27 Orders Doctor ECHOLS 1.2.840.114 [id number] Univers 00:00:00 00:00:00 Only Unassigned, EUNICE [id number] ity of [place] [facility] 4.2.7.2.686 Isaías as [phone] Medi tuyet 009 Branch Results This patient has no known results.
[2022-01-14] MEDS ORDERED: ONDANSETRON 4 MG/2 ML VIAL ONE (18:26)
[2022-01-14] MEDS ORDERED: NA CHLORIDE 0.9% 1,000 ML ONE (18:26)
[2022-01-14] MEDS ORDERED: MORPHINE 4 MG/ML SYR ONE (18:40)
[2022-01-14 18:57] LABS: Absolute Lymphocytes (CBC) 1.8 K/uL (0.7-4.9); Albumin 4.1 g/dL (3.4-5.0); Bilirubin Total 0.8 mg/dL (0.2-1.0); Hematocrit 40.4 % (36.0-45.0); Lymphocytes % 25.1 % (15.3-44.8); MPV 8.3 fL (7.6-11.3); Potassium 3.7 mmol/L (3.5-5.1); Protein, Total 8.8 g/dL (6.4-8.2); RBC Red Blood Cell Count 4.79 M/uL (3.86-4.86)
--- NOTE | 2022-01-14 19:51 | RAD REPORT ---
EXAM DESCRIPTION: CT - Abdomen Pelvis W Contrast - 01/14/2022 7:42 pm CLINICAL HISTORY: Rule out bowel obstruction COMPARISON: Abdomen Pelvis W Contrast dated 08/18/2020 TECHNIQUE: Biphasic, helical CT imaging of the abdomen and pelvis was performed following 100 ml non -ionic IV contrast. No oral contrast administered. All CT scans are performed using dose optimization technique as appropriate and may include automated exposure control or mA/KV adjustment according to patient size. FINDINGS: No suspicious findings in the lung bases. The liver, spleen, and pancreas show no suspicious findings. Gallbladder size is normal with no wall thickening or edema seen. Stones can be occult on CT imaging. There is mild biliary tree dilatation w ithout pancreatic or duodenal mass. Duct stones can be occult. Biliary tree size is increased compare d to the August 2020 study. Symmetric renal function is seen with no hydronephrosis or suspicious renal mass. No pyelonephritis o r acute parenchymal process. No bladder abnormalities. No adrenal abnormalities. Uterus is absent. Ov diamond are absent or atrophic. Food fills but does not dilate the stomach. No gastric wall thickening, mass or edema. No small bowel abnormality. There is fecalized bowel content in the terminal ileum. Large amount of stool is presen t distending the entirety of the colon. The colon wall mass or focal area of colon wall thickening is not identified. No free air, free fluid or inflammatory stranding. No hernia, mass or bulky lymphadenopathy. No suspicious bony findings. IMPRESSION: Constipation pattern with a large amount of stool distending the entirety of the rectum. Mild intrahepatic and extrahepatic biliary tree dilatation with no acute gallbladder finding. No obst ructing mass identified. Duct stones can be occult. Correlation is needed with any clinical or labora tory findings of biliary obstruction.
[2022-01-14] MEDS ORDERED: LACTULOSE 20 GM/30 ML UCUP ONE ×2 (21:12→21:16)
[2022-01-14] MEDS ORDERED: FLEET ENEMA ADULT PR ONE (21:13)
--- NOTE | 2022-01-14 21:48 | ER ---
Nurse's Notes [facility] Name: Mi Ortiz Age: 56 yrs Sex: Female : 1965 Arrival Date: 01/14/2022 Time: 18:08 Bed 2 Private MD: Diagnosis: Constipation Presentation: 01/14 18:13 Chief complaint: Patient states: Constipation X 2 weeks. Abdominal pain since noon ld1 today. C/O ABD pain, nausea. Coronavirus screen: At this time, the client does not indicate any symptoms associated with coronavirus-19. Ebola Screen: No symptoms or risks identified at this time. Initial Sepsis Screen: Does the patient meet any 2 criteria? No. Patient's initial sepsis screen is negative. Does the patient have a suspected source of infection? No. Patient's initial sepsis screen is negative. Risk Assessment: Do you want to hurt yourself or someone else? Patient reports no desire to harm self or others. Onset of symptoms was January 14, 2022 at 18:14. 18:13 Method Of Arrival: Ambulatory ld1 18:13 Acuity: CARMEN 3 ld1 Triage Assessment: 18:14 General: Appears in no apparent distress. uncomfortable, Behavior is cooperative, ld1 appropriate for age, anxious. Pain: Complains of pain in abdomen Pain does not radiate. Pain currently is 10 out of 10 on a pain scale. Quality of pain is described as sharp, shooting, throbbing. EENT: No signs and/or symptoms were reported regarding the EENT system. Neuro: Level of Consciousness is awake, alert, obeys commands, Oriented to person, place, time, situation. Cardiovascular: Capillary refill < 3 seconds Patient's skin is warm and dry. Respiratory: Airway is patent Respiratory effort is even, unlabored. GI: Abdomen is round non-distended, Reports constipation, nausea. : No signs and/or symptoms were reported regarding the genitourinary system. Derm: No signs and/or symptoms reported regarding the dermatologic system. Musculoskeletal: No signs and/or symptoms reported regarding the musculoskeletal system. 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 - Social history:: Smoking status: Patient denies any tobacco usage or history of. Patient/guardian denies using alcohol. Screenin:04 Abuse screen: Denies threats or abuse. Denies injuries from another. Nutritional sm5 screening: No deficits noted. Tuberculosis screening: No symptoms or risk factors identified. Fall Risk None identified. Assessment: 20:45 General: Appears in no apparent distress. Behavior is cooperative. Pain: Complains of sm5 pain in abdomen. Neuro: No deficits noted. Mayes Agitation-Sedation Scale (RASS): 0 - Alert and Calm Level of Consciousness is awake, alert, obeys commands, Oriented to person, place, time, situation. Cardiovascular: No deficits noted. Capillary refill < 3 seconds Patient's skin is warm and dry. Respiratory: No deficits noted. Airway is patent Trachea midline Respiratory effort is even, unlabored. GI: Abdomen is flat, Bowel sounds present X 4 quads. Abd is soft. 21:47 Reassessment: Pt had large bowel movement after administration of lactulose and enema, sm5 stating she feels much better. Provider made aware. Vital Signs: 18:13 BP 146 / 84; Pulse 74; Resp 18; Temp 98.7(TE); Pulse Ox 98% on R/A; Weight 72.57 kg; ld1 Height 5 ft. 4 in. (162.56 cm); Pain 10/10; 18:13 Body Mass Index 27.46 (72.57 kg, 162.56 cm) ld1 ED Course: 18:08 Patient arrived in ED. jj6 18:14 Triage completed. ld1 18:14 Arm band placed on right wrist. ld1 18:31 Inserted saline lock: 20 gauge in left antecubital area, using aseptic technique. Blood ld1 collected. 18:33 Bonita Zapata FNP is [facility]. 7 18:33 Marciano Olivas MD is Attending Physician. [facility] 19:44 CT Abd/Pelvis - IV Contrast Only In Process Unspecified. EDMS 20:34 Mary Ellen Youssef, LOGAN is Primary Nurse. 5 22:05 Patient has correct armband on for positive identification. Bed in low position. Call sm5 light in reach. Side rails up X2. 22:05 No provider procedures requiring assistance completed. IV discontinued, intact, sm5 bleeding controlled, No redness/swelling at site. Pressure dressing applied. Administered Medications: 18:30 Drug: NS 0.9% 1000 ml Route: IV; Rate: 1 bolus; Site: left femoral; ld1 22:06 Follow up: IV Status: Completed infusion; IV Intake: 1000ml 5 18:30 Drug: Zofran (Ondansetron) 4 mg Route: IVP; Site: left antecubital; ld1 22:06 Follow up: Response: No adverse reaction sm5 18:36 Drug: morphine 4 mg Route: IVP; Infused Over: 4 mins; Site: left antecubital; ld1 22:06 Follow up: Response: No adverse reaction 5 21:20 Drug: Lactulose 30 grams Volume: 45 ml; Route: PO; sm5 22:06 Follow up: Response: Marked relief of symptoms 5 21:23 Drug: Fleet Enema (sodium phosphate) 133 ml Route: PA; sm5 22:05 Follow up: Response: Marked relief of symptoms 5 Medication: 22:05 VIS not applicable for this client. sm5 Intake: 22:06 IV: 1000ml; Total: 1000ml. 5 Outcome: 21:48 Discharge ordered by . [facility] 22:05 Discharged to home ambulatory, with significant other. 5 22:05 Condition: stable 22:05 Discharge instructions given to patient, significant other, Instructed on discharge instructions, follow up and referral plans. medication usage, Demonstrated understanding of instructions, follow-up care, medications, Prescriptions given X 1. 22:06 Patient left the ED. 5 Signatures: Dispatcher [employer] EDMS Nahomi Ramos RN RN ld1 Bonita Olivares jj6 Mary Ellen Youssef RN RN sm5 Bonita Zapata, GRAPHIC DESIGN PROFESSOR GRAPHIC DESIGN PROFESSOR 7
--- NOTE | 2022-01-14 21:49 | EDPHYS ---
Physician Documentation [facility] Name: Mi Ortiz Age: 56 yrs Sex: Female : 1965 Arrival Date: 01/14/2022 Time: 18:08 Bed 2 Private MD: Marciano Harris HPI: 01/14 18:15 This 56 yrs old Female presents to ER via Ambulatory with complaints of jh7 Abdominal Pain, Abdominal Cramping, Constipation. 18:15 The patient presents with abdominal pain that is diffuse. Onset: The symptoms/episode jh7 began/occurred acutely. Patient presents with diffuse abdominal pain and nausea starting today. Reports that her last bowel movement was 2 weeks ago. States that she tried stool softeners yesterday with no relief.. 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 - Social history:: Smoking status: Patient denies any tobacco usage or history of. Patient/guardian denies using alcohol. ROS: 18:15 Constitutional: Negative for fever, chills, and weight loss, ENT: Negative for injury, jh7 pain, and discharge, Neck: Negative for injury, pain, and swelling, Cardiovascular: Negative for chest pain, palpitations, and edema, Respiratory: Negative for shortness of breath, cough, wheezing, and pleuritic chest pain, Back: Negative for injury and pain, Skin: Negative for injury, rash, and discoloration, Neuro: Negative for headache, weakness, numbness, tingling, and seizure. 18:15 Abdomen/GI: Positive for abdominal pain, nausea, constipation, Negative for vomiting, diarrhea. 18:15 All other systems are negative. Exam: 18:15 Constitutional: This is a well developed, well nourished patient who is awake, alert, jh7 and in no acute distress. 18:15 ENT: Nares patent. No nasal discharge, no septal abnormalities noted. Tympanic membranes are normal and external auditory canals are clear. Oropharynx with no redness, swelling, or masses, exudates, or evidence of obstruction, uvula midline. Mucous membranes moist. Neck: Trachea midline, no thyromegaly or masses palpated, and no cervical lymphadenopathy. Supple, full range of motion without nuchal rigidity, or vertebral point tenderness. No Meningismus. Cardiovascular: Regular rate and rhythm with a normal S1 and S2. No gallops, murmurs, or rubs. Normal PMI, no JVD. No pulse deficits. Respiratory: Lungs have equal breath sounds bilaterally, clear to auscultation and percussion. No rales, rhonchi or wheezes noted. No increased work of breathing, no retractions or nasal flaring. Back: No spinal tenderness. No costovertebral tenderness. Full range of motion. Skin: Warm, dry with normal turgor. Normal color with no rashes, no lesions, and no evidence of cellulitis. MS/ Extremity: Pulses equal, no cyanosis. Neurovascular intact. Full, normal range of motion. Neuro: Awake and alert, GCS 15, oriented to person, place, time, and situation. Motor strength 5/5 in all extremities. Sensory grossly intact. Normal gait. 18:15 Abdomen/GI: Inspection: abdomen appears normal, Bowel sounds: normal, Palpation: moderate abdominal tenderness, in all quadrants. Vital Signs: 18:13 BP 146 / 84; Pulse 74; Resp 18; Temp 98.7(TE); Pulse Ox 98% on R/A; Weight 72.57 kg; ld1 Height 5 ft. 4 in. (162.56 cm); Pain 10/10; 18:13 Body Mass Index 27.46 (72.57 kg, 162.56 cm) ld1 MDM: 18:15 Differential diagnosis: bowel obstruction, gastritis, non-specific abd pain. Data [facility] reviewed: vital signs, nurses notes, lab test result(s), EKG, radiologic studies, CT scan. Data interpreted: Pulse oximetry: is 98 %. Interpretation: normal. Counseling: I had a detailed discussion with the patient and/or guardian regarding: the historical points, exam findings, and any diagnostic results supporting the discharge/admit diagnosis, to return to the emergency department if symptoms worsen or persist or if there are any questions or concerns that arise at home. Response to treatment: the patient's symptoms have resolved after treatment, the patient's pain is gone, Patient produced a large bowel movement. ED course: Reviewed the patient's labs and CT scan findings. She was able to produce a large bowel movement after the lactulose and enema were administered. She stated that her pain was gone and she felt so much better. Advised her to increase her p.o. fluid intake at home, increase her fiber intake, and to take the stool softeners as needed. If she develops any new concerning symptoms, she should return to the ER for further eval.. 19:46 Patient medically screened. [facility] 01/14 18:17 Order name: CBC with Diff; Complete Time: 20:34 ld1 01/14 18:17 Order name: CMP; Complete Time: 20:34 ld1 01/14 18:17 Order name: Lipase; Complete Time: 20:34 ld1 01/14 18:32 Order name: CT Abd/Pelvis - IV Contrast Only; Complete Time: 20:34 ld1 01/14 18:17 Order name: IV Saline Lock; Complete Time: 18:30 ld1 01/14 18:17 Order name: Labs collected and sent; Complete Time: 18:30 ld1 Administered Medications: 18:30 Drug: NS 0.9% 1000 ml Route: IV; Rate: 1 bolus; Site: left femoral; ld1 22:06 Follow up: IV Status: Completed infusion; IV Intake: 1000ml sm5 18:30 Drug: Zofran (Ondansetron) 4 mg Route: IVP; Site: left antecubital; ld1 22:06 Follow up: Response: No adverse reaction sm5 18:36 Drug: morphine 4 mg Route: IVP; Infused Over: 4 mins; Site: left antecubital; ld1 22:06 Follow up: Response: No adverse reaction sm5 21:20 Drug: Lactulose 30 grams Volume: 45 ml; Route: PO; sm5 22:06 Follow up: Response: Marked relief of symptoms sm5 21:23 Drug: Fleet Enema (sodium phosphate) 133 ml Route: VA; sm5 22:05 Follow up: Response: Marked relief of symptoms sm5 Disposition Summary: 01/14/22 21:48 Discharge Ordered Location: Home [facility] Problem: new [facility] Symptoms: have improved [facility] Condition: Stable [facility] Diagnosis - Constipation 7 Followup: [facility] - With: Private Physician - When: 2 - 3 days - Reason: Continuance of care Discharge Instructions: - Discharge Summary Sheet jh7 - Constipation, Adult [facility] Forms: - Medication Reconciliation Form jh7 - Thank You Letter jh7 Prescriptions: - Colace 100 mg Oral Tablet - take 1 tablet by ORAL route every 12 hours; 14 tablet; Refills: 0, Product [facility] Selection Permitted Signatures: Dispatcher [employer] Nahomi Patel RN RN ld1 Mary Ellen Youssef RN RN sm5 Bonita Zapata FNP CMS EXPERT [facility]
[2022-01-14 22:13] VITALS: BP 146/84; TEMP 98.7; O2SAT 98
== END 2022-01-14 22:06 | disposition home or self-care (01) ==
LOC: ER 18:06
DX: K59.00 Constipation, unspecified (principal); R10.9 Unspecified abdominal pain
CPT/HCPCS: 96361; 85025; 36415; 83690; 80053; 74177; 96375; 96374; 99284; Q9967; J7030; J2405

== ENCOUNTER 2022-02-09 15:11 | Emergency (ER) | payer BC ==
[2022-02-09 16:21] LABS: Absolute Lymphocytes (CBC) 2.1 K/uL (0.7-4.9); Lymphocytes % 21.9 % (15.3-44.8); MCV 84.5 fL (80-100); MPV 8.2 fL (7.6-11.3)
[2022-02-09 16:38] LABS: Bilirubin Total 0.9 mg/dL (0.2-1.0); Potassium 3.7 mmol/L (3.5-5.1); Protein, Total 8.4 g/dL (6.4-8.2)
--- NOTE | 2022-02-09 17:04 | RAD REPORT ---
EXAM DESCRIPTION: CTAbdomen Pelvis W Contrast - 02/09/2022 4:53 pm CLINICAL HISTORY: Abdominal pain. LUQ abdominal pain COMPARISON: Abdomen Pelvis W Contrast dated 01/14/2022; Abdomen Pelvis W Contrast dated 08/18/2020 ; Abdomen Pelvis W Contrast dated 06/12/2020 TECHNIQUE: Biphasic CT imaging of the abdomen and pelvis was performed with 100 ml non-ionic IV cont rast. All CT scans are performed using dose optimization technique as appropriate and may include automated exposure control or mA/KV adjustment according to patient size. FINDINGS: The lung bases are clear. The liver, spleen, pancreas, adrenal glands and kidneys are within normal limits. No bowel obstruction, free air, free fluid or abscess. There is mild inflammation seen left lower qu adrant adjacent to the portion of the sigmoid colon where several diverticula are present. Nonvisuali zed appendix. Stool retention. No evidence of significant lymphadenopathy. No suspicious bony findings. IMPRESSION: Mild/ early acute sigmoid diverticulitis is suspected left lower quadrant.
[2022-02-09] MEDS ORDERED: ONDANSETRON 4 MG/2 ML VIAL ONE (18:23)
[2022-02-09] MEDS ORDERED: metroNIDAZOLE 500 MG TABLET ONE (18:23)
[2022-02-09] MEDS ORDERED: CIPROFLOXACIN HCL 500 MG TAB ONE (18:23)
[2022-02-09] MEDS ORDERED: DICYCLOMINE HCL 20 MG/2 ML AMP IM ONE (18:24)
[2022-02-09] MEDS ORDERED: NA CHLORIDE 0.9% 500 ML ONE (18:24)
[2022-02-09 18:28] LABS: Urine Blood Negative (Negative); Urine Glucose Negative (Negative); Urine Protein Negative (Negative); Urine pH 6.5 (5.0-7.0)
--- NOTE | 2022-02-09 18:39 | ER ---
Nurse's Notes [facility] Name: Mi Ortiz Age: 56 yrs Sex: Female : 1965 Arrival Date: 02/09/2022 Time: 15:13 Bed 11 Private MD: Diagnosis: Diverticulitis of large intestine without perforation or abscess without bleeding Presentation: 02/09 15:57 Chief complaint: Patient states: Left sided abdominal pain since last night. Denies ld1 N/V/D. Coronavirus screen: At this time, the client does not indicate any symptoms associated with coronavirus-19. Ebola Screen: No symptoms or risks identified at this time. Initial Sepsis Screen: Does the patient meet any 2 criteria? No. Patient's initial sepsis screen is negative. Does the patient have a suspected source of infection? No. Patient's initial sepsis screen is negative. Risk Assessment: Do you want to hurt yourself or someone else? Patient reports no desire to harm self or others. Onset of symptoms was February 09, 2022 at 15:58. 15:57 Method Of Arrival: Ambulatory ld1 15:57 Acuity: CARMEN 3 ld1 Triage Assessment: 15:58 General: Appears in no apparent distress. comfortable, Behavior is calm, cooperative, ld1 appropriate for age. Pain: Complains of pain in left upper quadrant and left lower quadrant Pain does not radiate. Pain currently is 9 out of 10 on a pain scale. Quality of pain is described as sharp, shooting. EENT: No signs and/or symptoms were reported regarding the EENT system. Neuro: Level of Consciousness is awake, alert, obeys commands, Oriented to person, place, time, situation. Cardiovascular: Capillary refill < 3 seconds Patient's skin is warm and dry. Respiratory: Airway is patent Respiratory effort is even, unlabored. GI: Abdomen is round non-distended, Reports lower abdominal pain, upper abdominal pain, nausea. : No signs and/or symptoms were reported regarding the genitourinary system. Derm: No signs and/or symptoms reported regarding the dermatologic system. Musculoskeletal: No signs and/or symptoms reported regarding the musculoskeletal system. 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 - Social history:: Smoking status: Patient denies any tobacco usage or history of. Patient/guardian denies using alcohol. Screenin:18 Abuse screen: Denies threats or abuse. Denies injuries from another. Nutritional ld1 screening: No deficits noted. Tuberculosis screening: No symptoms or risk factors identified. Fall Risk None identified. Vital Signs: 15:57 BP 125 / 81; Pulse 81; Resp 18; Temp 97.9(TE); Pulse Ox 99% on R/A; Weight 69.85 kg; ld1 Height 5 ft. 5 in. (165.10 cm); Pain 9/10; 15:57 Body Mass Index 25.63 (69.85 kg, 165.10 cm) ld1 ED Course: 15:13 Patient arrived in ED. rg4 15:19 Marciano Pearson PA is PHCP. cp 15:19 Pedro Pablo Ralph MD is Attending Physician. cp 15:58 Triage completed. ld1 15:58 Arm band placed on right wrist. ld1 16:04 Inserted saline lock: 20 gauge in right antecubital area, using aseptic technique. ld1 Blood collected. 16:55 CT Abd/Pelvis - IV Contrast Only In Process Unspecified. EDMS 18:12 Nahomi Ramos, LOGAN is Primary Nurse. ld1 18:38 Miguel Queen MD is Referral Physician. cp 19:18 Patient has correct armband on for positive identification. Placed in gown. Bed in low ld1 position. Call light in reach. Side rails up X2. Pulse ox on. NIBP on. Door closed. Noise minimized. Warm blanket given. 19:18 No provider procedures requiring assistance completed. IV discontinued, intact, ld1 bleeding controlled, No redness/swelling at site. Administered Medications: 18:23 Drug: NS 0.9% 500 ml Route: IV; Rate: bolus; Site: right antecubital; ld1 18:23 Drug: Cipro (ciprofloxacin) 500 mg Route: PO; ld1 18:23 Drug: metroNIDAZOLE 500 mg Route: PO; ld1 18:23 Drug: Bentyl (dicyclomine) 20 mg Route: IM; Site: right deltoid; ld1 18:23 Drug: Zofran (Ondansetron) 4 mg Route: IVP; Site: right antecubital; ld1 Medication: 19:18 VIS not applicable for this client. ld1 Outcome: 18:38 Discharge ordered by . jose 19:18 Discharged to home ambulatory. ld1 19:18 Condition: stable 19:18 Discharge instructions given to patient, Instructed on discharge instructions, follow up and referral plans. Demonstrated understanding of instructions, follow-up care. 19:18 Patient left the ED. ld1 Signatures: Dispatcher [employer] EDMS Marciano Pearson PA PA cp Garcia, Rubi rg4 Nahomi Ramos, RN RN ld1
--- NOTE | 2022-02-09 18:39 | EDPHYS ---
Physician Documentation 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 - Social history:: Smoking status: Patient denies any tobacco usage or history of. Patient/guardian denies using alcohol. Vital Signs: 15:57 BP 125 / 81; Pulse 81; Resp 18; Temp 97.9(TE); Pulse Ox 99% on R/A; Weight 69.85 kg; ld1 Height 5 ft. 5 in. (165.10 cm); Pain 9/10; 15:57 Body Mass Index 25.63 (69.85 kg, 165.10 cm) ld1 MDM: 18:06 Patient medically screened. 02/09 16:04 Order name: CBC with Diff; Complete Time: 17:56 [facility] 02/09 17:56 Interpretation: Reviewed. 02/09 16:04 Order name: CMP; Complete Time: 17:56 [facility] 02/09 17:56 Interpretation: Normal except: ALK 119; TP 8.4; GLOB 4.4; A/G 0.9. 02/09 16:04 Order name: Lipase; Complete Time: 17:56 [facility] 02/09 16:06 Order name: CT Abd/Pelvis - IV Contrast Only; Complete Time: 17:56 [facility] 02/09 18:29 Order name: Urine Dipstick-Ancillary [facility] 02/09 18:34 Order name: Urine --Ancillary (enter results) [facility] 02/09 16:04 Order name: IV Saline Lock; Complete Time: 16:04 ld1 02/09 16:04 Order name: Labs collected and sent; Complete Time: 16:04 1 07/06 16:04 Order name: Urine Dipstick-Ancillary (obtain specimen); Complete Time: 18:39 ld1 Administered Medications: 18:23 Drug: NS 0.9% 500 ml Route: IV; Rate: bolus; Site: right antecubital; ld1 18:23 Drug: Cipro (ciprofloxacin) 500 mg Route: PO; ld1 18:23 Drug: metroNIDAZOLE 500 mg Route: PO; ld1 18:23 Drug: Bentyl (dicyclomine) 20 mg Route: IM; Site: right deltoid; ld1 18:23 Drug: Zofran (Ondansetron) 4 mg Route: IVP; Site: right antecubital; ld1 Disposition Summary: 02/09/22 18:38 Discharge Ordered Location: Home cp Problem: new cp Symptoms: have improved cp Condition: Stable cp Diagnosis - Diverticulitis of large intestine without perforation or abscess without bleeding cp Followup: cp - With: Miguel Queen MD - When: 1 week - Reason: Recheck today's complaints Discharge Instructions: - Discharge Summary Sheet cp - High-Fiber Diet cp - Diverticulitis cp Forms: - Medication Reconciliation Form cp - Thank You Letter cp - Antibiotic Education cp - Prescription Opioid Use cp Prescriptions: - Zofran 4 mg Oral Tablet - take 1 tablet by ORAL route every 12 hours As needed; 20 tablet; Refills: 0, cp Product Selection Permitted - Cipro 500 mg Oral Tablet - take 1 tablet by ORAL route every 12 hours for 10 days; 20 tablet; Refills: 0, cp Product Selection Permitted - Metronidazole 500 mg Oral Tablet - take 1 tablet by ORAL route every 8 hours; 30 tablet; Refills: 0, Product cp Selection Permitted - dicyclomine 20 mg Oral Tablet - take 1 tablet by ORAL route 4 times per day; 20 tablet; Refills: 0, Product cp Selection Permitted Signatures: Dispatcher [employer] EDMS Marciano Pearson PA PA cp Nahomi Ramos RN RN ld1 Corrections: (The following items were deleted from the chart) 17:56 17:56 Normal except. cp cp
[2022-02-09 20:21] VITALS: BP 125/81; TEMP 97.9; O2SAT 99
== END 2022-02-09 19:18 | disposition home or self-care (01) ==
LOC: ER 15:11
DX: K57.32 Diverticulitis of large intestine without perforation or abscess without bleeding (principal); I10 Essential (primary) hypertension; Z88.1 Allergy status to other antibiotic agents
CPT/HCPCS: 85025; 36415; 81025; 81003; 83690; 80053; 74177; Q9967; J0500; J7040; J2405

== ENCOUNTER 2022-03-07 08:20 | Emergency (ER) | payer BC ==
[2022-03-07 10:02] VITALS: BP 123/87; TEMP 98.2; O2SAT 99
--- NOTE | 2022-03-09 09:19 | ER ---
Nurse's Notes [facility] Name: Mi Ortiz Age: 56 yrs Sex: Female : 1965 Arrival Date: 03/07/2022 Time: 08:26 Bed 14 Private MD: Diagnosis: Viral syndrome;Cough;Diarrhea, unspecified Presentation: 03/07 08:33 Chief complaint: Patient states: pt presented diarrhea and cough. Coronavirus screen: roque Vaccine status: Patient reports receiving the 2nd dose of the covid vaccine. Ebola Screen: Patient denies travel to an Ebola-affected area in the 21 days before illness onset. Initial Sepsis Screen: Does the patient meet any 2 criteria? No. Patient's initial sepsis screen is negative. Does the patient have a suspected source of infection? No. Patient's initial sepsis screen is negative. Risk Assessment: Do you want to hurt yourself or someone else? Patient reports no desire to harm self or others. Onset of symptoms was March 06, 2022. 08:33 Method Of Arrival: Ambulatory 08:33 Acuity: CARMEN 3 roque Triage Assessment: 08:37 General: Appears in no apparent distress. comfortable, Behavior is calm, cooperative, bp appropriate for age. Pain: Denies pain. EENT: No deficits noted. Neuro: No deficits noted. Cardiovascular: No deficits noted. Respiratory: No deficits noted. GI: Reports diarrhea. : No signs and/or symptoms were reported regarding the genitourinary system. Derm: No signs and/or symptoms reported regarding the dermatologic system. Musculoskeletal: No deficits noted. Historical: - Allergies: 08:34 amoxicillin-pot clavulanate; roque - Home Meds: 08:34 lisinopril 10 mg Oral tab 1 tab once daily [Active]; roque - PMHx: 08:34 Hypertensive disorder; roque - PSHx: 08:34 Cholecystectomy; roque - Immunization history:: Adult Immunizations up to date. - Social history:: Smoking status: Patient denies any tobacco usage or history of. - Family history:: not pertinent. - Hospitalizations: : No recent hospitalization is reported. Screenin:38 Abuse screen: Denies threats or abuse. Denies injuries from another. Nutritional bp screening: No deficits noted. Tuberculosis screening: No symptoms or risk factors identified. Fall Risk None identified. Assessment: 08:38 General: SEE TRIAGE NOTE. bp 09:04 Reassessment: PT D/C HOME AMBULATORY, TO BE CONTACTED IF RESULTS POSITIVE. [phone] Vital Signs: 08:33 BP 123 / 87; Pulse 71; Resp 17; Temp 98.2(T); Pulse Ox 99% ; Weight 75.75 kg; Height 5 roque ft. 5 in. (165.10 cm); 08:33 Body Mass Index 27.79 (75.75 kg, 165.10 cm) roque ED Course: 08:26 Patient arrived in ED. am2 08:28 Colt Gusman MD is Attending Physician. rn 08:34 Triage completed. roque 08:36 Juma Brown, LOGAN is Primary Nurse. bp 08:38 Arm band placed on. bp 08:38 Patient has correct armband on for positive identification. Bed in low position. Call bp light in reach. Side rails up X2. 09:05 No provider procedures requiring assistance completed. Patient did not have IV access bp during this emergency room visit. 09:05 SARS-COV-2 RT PCR (Document "Date of Onset" if Symptomatic) Sent. bp 09:06 Flu Sent. bp Administered Medications: No medications were administered Medication: 08:38 VIS not applicable for this client. bp Outcome: 08:53 Discharge ordered by . rn 09:05 Discharged to home ambulatory. bp 09:05 Condition: stable 09:05 Discharge instructions given to patient, Instructed on discharge instructions, follow up and referral plans. Demonstrated understanding of instructions, follow-up care. 09:06 Patient left the ED. bp Signatures: Colt Gusman MD MD rn Moreno, Amanda am2 Juma Brown, RN LOGAN bp Au-StagerNikki RN RN
--- NOTE | 2022-03-09 09:19 | EDPHYS ---
Physician Documentation [facility] Name: Mi Ortiz Age: 56 yrs Sex: Female : 1965 Arrival Date: 03/07/2022 Time: 08:26 Bed 14 Private MD: ED Physician Colt Gusman HPI: 03/07 08:49 This 56 yrs old Female presents to ER via Ambulatory with complaints of Cough, rn Diarrhea. 08:49 The patient or guardian reports cough. rn 08:49 Onset: The symptoms/episode began/occurred 2 day(s) ago. Severity of symptoms: At their rn worst the symptoms were mild, in the emergency department the symptoms have improved. Modifying factors: The symptoms are alleviated by nothing, the symptoms are aggravated by nothing. Associated signs and symptoms: Pertinent positives: diarrhea, rhinorrhea, Pertinent negatives: fever. The patient has not experienced similar symptoms in the past. The patient has not recently seen a physician. Pt reports cough and diarrhea for 2 days, now better, has appetite, no fever. Took 2 COVID tests at home, first was positive 4 days ago, then last night was negative. States feels fine now, but would like to know if she has COVID because is diabetic.. Historical: - Allergies: 08:34 amoxicillin-pot clavulanate; roque - Home Meds: 08:34 lisinopril 10 mg Oral tab 1 tab once daily [Active]; roque - PMHx: 08:34 Hypertensive disorder; roque - PSHx: 08:34 Cholecystectomy; roque - Immunization history:: Adult Immunizations up to date. - Social history:: Smoking status: Patient denies any tobacco usage or history of. - Family history:: not pertinent. - Hospitalizations: : No recent hospitalization is reported. ROS: 08:49 Constitutional: Negative for fever, chills, and weight loss, Eyes: Negative for injury, rn pain, redness, and discharge, ENT: Negative for injury, pain, and discharge, Neck: Negative for injury, pain, and swelling, Cardiovascular: Negative for chest pain, palpitations, and edema, Respiratory: + cough, neg for sob Abdomen/GI: + diarrhea yesterday, none today. Neg for abd pain/vomiting MS/Extremity: Negative for injury and deformity, Skin: Negative for injury, rash, and discoloration, Neuro: Negative for headache, weakness, numbness, tingling, and seizure. Exam: 08:49 Constitutional: This is a well developed, well nourished patient who is awake, alert, rn and in no acute distress. Head/Face: Normocephalic, atraumatic. Eyes: Periorbital areas with no swelling, redness, or edema. ENT: No stridor. No swelling. Mucous membranes moist. Neck: Trachea midline, no thyromegaly or masses palpated, and no cervical lymphadenopathy. Supple, full range of motion without nuchal rigidity, or vertebral point tenderness. No Meningismus. Cardiovascular: Regular rate and rhythm. No pulse deficits. Respiratory: No increased work of breathing, no retractions or nasal flaring. Abdomen/GI: Soft, non-tender Skin: Warm, dry MS/ Extremity: Pulses equal, no cyanosis. Neuro: Awake and alert, GCS 15 Vital Signs: 08:33 BP 123 / 87; Pulse 71; Resp 17; Temp 98.2(T); Pulse Ox 99% ; Weight 75.75 kg; Height 5 roque ft. 5 in. (165.10 cm); 08:33 Body Mass Index 27.79 (75.75 kg, 165.10 cm) roque MDM: 08:28 Patient medically screened. rn 08:49 Differential Diagnosis: Influenza Upper Respiratory Infection Viral Syndrome Other rn LEVAR. Data reviewed: vital signs, nurses notes, and as a result, I will discharge patient. Counseling: I had a detailed discussion with the patient and/or guardian regarding: the historical points, exam findings, and any diagnostic results supporting the discharge/admit diagnosis, the need for outpatient follow up, to return to the emergency department if symptoms worsen or persist or if there are any questions or concerns that arise at home. Special discussion: I discussed with the patient/guardian in detail that at this point there is no indication for admission to the hospital. It is understood, however, that if the symptoms persist or worsen the patient needs to return immediately for re-evaluation. ED course: Pt does not want to wait on results, requests that we call her with results. Already feeling better with normal vitals, so told her we could do that.. 12:12 ED course: Pt notified that COVID test +. rn 03/07 08:29 Order name: SARS-COV-2 RT PCR (Document "Date of Onset" if Symptomatic); Complete Time: rn 12:12 03/07 08:29 Order name: Flu; Complete Time: 12:12 rn Administered Medications: No medications were administered Disposition Summary: 03/07/22 08:53 Discharge Ordered Location: Home rn Problem: new rn Symptoms: have improved rn Condition: Stable rn Diagnosis - Viral syndrome rn - Cough rn - Diarrhea, unspecified rn Followup: rn - With: Private Physician - When: As needed - Reason: Recheck today's complaints, Re-evaluation by your physician Discharge Instructions: - Discharge Summary Sheet rn - Diarrhea, Adult rn - Cough, Adult rn Forms: - Medication Reconciliation Form rn - Thank You Letter rn - Work release form rn - Antibiotic rn clinical documentation - Prescription Opioid Use rn Signatures: Dispatcher [employer] Colt Bolivar MD MD rn Nikki Marrero RN RN roque
== END 2022-03-07 09:06 | disposition home or self-care (01) ==
LOC: ER 08:20
DX: U07.1 COVID-19 (principal); B34.9 Viral infection, unspecified; R19.7 Diarrhea, unspecified; I10 Essential (primary) hypertension; Z88.1 Allergy status to other antibiotic agents
CPT/HCPCS: 87804 ×2; U0003; 99283

== ENCOUNTER 2022-03-25 15:43 | Emergency (ER) | payer BC ==
--- OUTSIDE RECORDS SUMMARY | 2022-03-25 15:46 | XMS REPORT | Continuity of Care Document ---
:1965 Author Organization [facility] t Address [address] [place] [address] [address] [place] [address] Care Team Providers Name Role Phone PCP, PATIENT DOES NOT HAVE A Primary Care Physician Unavaila ble Only, Adc Pob2 Test Attending Clinician Unavailable Gibran Walters DO Attending Clinician GIBRAN WALTERS Attending Clinician Unavailable Rivka RN, Izabela Attending Clinician Unavailable Elicia Garcia RN Attending Clinician Unavailable Doctor Unassigned, [place] Attending Clinician Unavailable Annmarie Aparicio Attending Clinician ANNMARIE CYR Attending Clinician Unavailable Swallows, Gal Speech Modified Barium Attending Clinician Jeri vailaamanda [place] PHD, Yee Rosen Attending Clinician YEE DOVER Attending Clinician Unavailable Payers Payer Name Policy [...] n Depo-Prove Depo-Prove Disease Active 2014-08 [place] ra ra 1-20 [place]isa [place] 00 Ri dical Branch Essential Essential Disease Active 2014-08 Uni vers hypertensi hypertensi 1-20 [place], benign [place] 00 [place] Contracept Contracept Disease Active 2014-08 U oswaldo millere yulisa 1-13 [place] management [place] Acute Acute Disease Active 2014-08 [facility] cystitis cystitis 1-11 ity of without without 00:00: [place] hematuria hematuria 00 [facility] Branch Allergies, Adverse Reactions, Alerts Allergy Allergy Status Severity Reaction(s) Onset Inactive Treating Comm ents Source Name Type Date Date Clinician NO KNOWN Drug Active Univers ALLERGIE Class ity of S [facility] Social History Social Habit Start Date Stop Date Quantity Comments Source Exposure to Not sure [facility] SARS-CoV-2 (event) Medica l Branch Alcohol intake 2020-01-27 2020-01-27 0 /d [facility] 00:00:00 00:00:00 [facility] Tobacco use and 2013-11-20 2013-11-[address] [facility] exposure 00:00:00 00:00:00 [facility] Sex Assigned At [address] 1965 [facility] 00:00:00 00:00:00 [facility] Smoking Status Start Date Stop Date Source Never smoker [facility] Medications Ordered Filled Start Stop Current Ordering Indication Dosage Frequency Signature Comments Components Source Medication Medication Date Date Medication? Clinician (SIG) Name Name pantoprazol Yes [id number] 40mg Take 1 Univers e 40 mg EC 6-22 tablet by ity of tablet 00:00: mouth [place] 00 daily. Medical Branch pantoprazol 2019-0 Yes [id number] 40mg Take 1 Univers e 40 mg EC 6-22 tablet by ity of tablet 00:00: mouth [place] 00 daily. Medical Branch pantoprazol 2019-0 Yes [id number] 40mg Take 1 Univers e 40 mg EC 6-22 tablet by ity of tablet 00:00: mouth [place] 00 daily. Medical Branch pantoprazol 2019-0 Yes [id number] 40mg Take 1 Univers e 40 mg EC 6-22 tablet by ity of tablet 00:00: mouth [place] 00 daily. Medical Branch pantoprazol 2019-0 Yes [id number] 40mg Take 1 Univers e 40 mg EC 6-22 tablet by ity of tablet 00:00: mouth [place] 00 daily. Medical Branch pantoprazol 2019-0 Yes [id number] 40mg Take 1 Univers e 40 mg EC 6-22 tablet by ity of tablet 00:00: mouth [place] 00 daily. Medical Branch pantoprazol 2019-0 Yes [id number] 40mg Take 1 Univers e 40 mg EC 6-22 tablet by ity of tablet 00:00: mouth [place] 00 daily. Medical Branch pantoprazol 2019-0 Yes [id number] 40mg Take 1 Univers e 40 mg EC 6-22 tablet by ity of tablet 00:00: mouth [place] 00 daily. Medical Branch pantoprazol 2019-0 Yes [id number] 40mg Take 1 Univers e 40 mg EC 6-22 tablet by ity of tablet 00:00: mouth [place] 00 daily. Medical Branch pantoprazol 2019-0 Yes [id number] 40mg Take 1 Univers e 40 mg EC 6-22 tablet by ity of tablet 00:00: mouth [place] 00 daily. Medical Branch traMADOL 2018-0 Yes [id number] 50mg Take 1 Uni vers (ULTRAM) 50 3-10 tablet by ity of mg tablet 00:00: mouth [place] 00 every 6 Medical (six) Branch hours as needed for Pain (scale 7-10). clindamycin 2018- Yes [id number] 300mg Take 1 Univers 300 mg 3-10 capsule by ity of capsule 00:00: mouth 3 [place] 00 (three) Medical times Branch daily. traMADOL 2018-0 Yes [id number] 50mg Take 1 Uni vers (ULTRAM) 50 3-10 tablet by ity of mg tablet 00:00: mouth [place] 00 every 6 Medical (six) Branch hours as needed for Pain (scale 7-10). clindamycin 2019-0 Yes [id number] 300mg Take 1 Univers 300 mg 3-10 capsule by ity of capsule 00:00: mouth 3 (three) Medical times Branch daily. traMADOL 2019-0 Yes [id number] 50mg Take 1 Uni vers (ULTRAM) 50 3-10 tablet by ity of mg tablet 00:00: mouth [place] 00 every 6 Medical (six) Branch hours as needed for Pain (scale 7-10). clindamycin 2019-0 Yes [id number] 300mg Take 1 Univers 300 mg 3-10 capsule by ity of capsule 00:00: mouth (three) Medical times Branch daily. traMADOL 2019-0 Yes [id number] 50mg Take 1 Uni vers (ULTRAM) 50 3-10 tablet by ity of mg tablet 00:00: mouth 00 every 6 Medical (six) Branch hours as needed for Pain (scale 7-10). clindamycin 2019-0 Yes [id number] 300mg Take 1 Univers 300 mg 3-10 capsule by ity of capsule 00:00: mouth (three) Medical times Branch daily. traMADOL 2019-0 Yes [id number] 50mg Take 1 Uni vers (ULTRAM) 50 3-10 tablet by ity of mg tablet 00:00: mouth [place] 00 every 6 Medical (six) Branch hours as needed for Pain (scale 7-10). clindamycin 2019-0 Yes [id number] 300mg Take 1 Univers 300 mg 3-10 capsule by ity of capsule 00:00: mouth (three) Medical times Branch daily. traMADOL 2019-0 Yes [id number] 50mg Take 1 Uni vers (ULTRAM) 50 3-10 tablet by ity of mg tablet 00:00: mouth [place] 00 every 6 Medical (six) Branch hours as needed for Pain (scale 7-10). clindamycin 2019-0 Yes [id number] 300mg Take 1 Univers 300 mg 3-10 capsule by ity of capsule 00:00: mouth 3 00 (three) Medical times Branch daily. traMADOL 2019-0 Yes [id number] 50mg Take 1 Uni vers (ULTRAM) 50 3-10 tablet by ity of mg tablet 00:00: mouth [place] 00 every 6 Medical (six) Branch hours as needed for Pain (scale 7-10). clindamycin 2019-0 Yes [id number] 300mg Take 1 Univers 300 mg 3-10 capsule by ity of capsule 00:00: mouth 3 (three) Medical times Branch daily. traMADOL 2019-0 Yes [id number] 50mg Take 1 Uni vers (ULTRAM) 50 3-10 tablet by ity of mg tablet 00:00: mouth [place] 00 every 6 Medical (six) Branch hours as needed for Pain (scale 7-10). clindamycin 2019-0 Yes [id number] 300mg Take 1 Univers 300 mg 3-10 capsule by ity of capsule 00:00: mouth 00 (three) Medical times Branch daily. traMADOL 2019-0 Yes [id number] 50mg Take 1 Uni vers (ULTRAM) 50 3-10 tablet by ity of mg tablet 00:00: mouth [place] 00 every 6 Medical (six) Branch hours as needed for Pain (scale 7-10). clindamycin 2019-0 Yes [id number] 300mg Take 1 Univers 300 mg 3-10 capsule by ity of capsule 00:00: mouth (three) Medical times Branch daily. traMADOL 2019-0 Yes [id number] 50mg Take 1 Uni vers (ULTRAM) 50 3-10 tablet by ity of mg tablet 00:00: mouth [place] 00 every 6 Medical (six) Branch hours as needed for Pain (scale 7-10). clindamycin 2019-0 Yes [id number] 300mg Take 1 Univers 300 mg 3-10 capsule by ity of capsule 00:00: mouth (three) Medical times Branch daily. traMADOL 2019-0 Yes [id number] 50mg Take 1 Uni vers (ULTRAM) 50 3-10 tablet by ity of mg tablet 00:00: mouth [place] 00 every 6 Medical (six) Branch hours as needed for Pain (scale 7-10). clindamycin 2019-0 Yes [id number] 300mg Take 1 Univers 300 mg 3-10 capsule by ity of capsule 00:00: mouth (three) Medical times Branch daily. ibuprofen 2018-0 [...] 00:00: mouth [place] 00 every Medical morning. [place] Immunizations Ordered Filled Immunization Date Status Comments [facility] e Immunization Name Name TDAP (ADACEL) 2015-02-04 Completed University of VACCINE 00:00:00 [facility] TDAP (ADACEL) 2015-02-04 Completed University of VACCINE 00:00:00 [facility] TDAP (ADACEL) 2015-02-04 Completed University of VACCINE 00:00:00 [facility] TDAP (ADACEL) 2015-02-04 Completed University of VACCINE 00:00:00 [facility] TDAP (ADACEL) 2015-02-04 Completed University of VACCINE 00:00:00 [facility] TDAP (ADACEL) 2015-02-04 Completed University of VACCINE 00:00:00 [facility] TDAP (ADACEL) 2015-02-04 Completed University of VACCINE 00:00:00 [facility] TDAP (ADACEL) 2015-02-04 Completed University of VACCINE 00:00:00 [facility] TDAP (ADACEL) 2015-02-04 Completed University of VACCINE 00:00:00 [facility] TDAP (ADACEL) 2015-02-04 Completed University of VACCINE 00:00:00 [facility] TDAP (ADACEL) 2015-02-04 Completed University of VACCINE 00:00:00 [facility] Vital Signs Vital Name Observation Time Observation Value Comments Source Systolic blood 2020-01-27 15:55:00 126 mm[Hg] Univer sity of pressure [facility] Diastolic blood 2020-01-27 15:55:00 89 mm[Hg] Unive rsity of pressure [facility] Heart rate 2020-01-27 15:55:00 83 /min Universi ty of [facility] Body temperature 2020-01-27 15:55:00 36.33 Rossi Univ ersity of [facility] Body height 2020-01-27 15:55:00 165.1 cm Universi ty of [facility] Body weight 2020-01-27 15:55:00 87.907 kg Universi ty of [facility] Branch BMI 2020-01-27 15:55:00 32.25 kg/m2 Universi ty of [facility] Branch Systolic blood 2020-01-27 15:55:00 126 mm[Hg] Univer sity of pressure [facility] Branch Diastolic blood 2020-01-27 15:55:00 89 mm[Hg] Unive rsity of pressure [facility] Heart rate 2020-01-27 15:55:00 83 /min Universi ty of [facility] Body temperature 2020-01-27 15:55:00 36.33 Rossi Univ ersity of [facility] Body height 2020-01-27 15:55:00 165.1 cm Universi ty of [place] [facility] Body weight 2020-01-27 15:55:00 87.907 kg Universi ty of [place] [facility] BMI 2020-01-27 15:55:00 32.25 kg/m2 Universi ty of [facility] Branch Procedures Procedure Date / Time Performed Performing Clinician Abdon e EXTERNAL PROVIDER 2021-02-17 05:01:00 Doctor Unassigned, No Univ ersity of [place] RECORDS Name Medical Branch EXTERNAL PROVIDER 2020-03-02 05:01:00 Doctor Unassigned, No Univ [facility] [place] RECORDS Name Medical Branch ASSIGNMENT OF BENEFITS 2020-01-27 15:36:07 Doctor Unassigned, No [facility] Encounters Start End Encounter Admission Attending Care Care Encounter Source Date/Time Date/Time Type Type Clinicians Facility Department ID 2021-09-01 2021-09-01 Laboratory Only, Adc Pob2 Test [facility] 1.2 .840.114 [id number] Univers 11:00:00 11:15:00 Only Gibran Walters 350.1.13 .10 ity [facility] [place] PROF[place] [id number] Ri dic[address] 2021-09-01 2021-09-01 Outpatient R SELENA [facility] [id number] Univers 11:00:00 11:05:11 GIBRAN [facility] 2021-09-01 2021-09-01 Outpatient R [facility] [id number] Univers 11:00:00 11:00:00 [id number] ity [facility] 2021-09-01 2021-09-01 Telephone ONESIMO Tineo [id number] Univers 00:00:00 00:00:00 Izabela DAWSON [id number] it [facility] 4.2.7.2.686 Isaías as [id number] [address] 2021-08-30 2021-08-30 Outpatient R SELENA [facility] [id number] Univers 10:30:00 10:41:00 GIBRAN marley [facility] 2021-08-30 2021-08-30 Laboratory Only, Adc Pob2 Test [facility] 1.2 .840.114 [id number] Univers 10:30:00 10:41:00 Only Gibran Walters 350.1.13 .10 ity [facility] 4[place] [id number] Ri dical [address] 2021-08-30 2021-08-30 Outpatient R [facility] [id number] Univers 10:30:00 10:30:[id number] 2021-08-30 2021-08-30 Letter ONESIMO Garcia 1.2.840.114 [id number] Univers 00:00:00 00:00:00 (Out) Elicia Kolb EUNICE [id number] it y of HOSPITAL 4.2.7.2.686 Isaías as [id number] [facility] 019 Branch 2021-02-17 2021-02-17 Orders Doctor ONESIMO 1.2.840.114 [id number] Univers 00:00:00 00:00:00 Only Unassigned, EUNICE 350.1.13.10 ity of [place] [facility] 4.2.7.2.686 Isaías as [phone] [facility] 009 [place] 2021-02-09 2021-02-09 Telephone Jarett, UNIVERSIT 1.2.840.114 [id number] Univers 00:00:00 00:00:00 Annmariereinaldo Ross HEALTH [id number] ity of [place] [id number] [address] 2020-03-02 2020-03-02 Orders Doctor ONESIMO 1.2.840.114 [id number] 00:00:00 00:00:00 Only Unassigned, EUNICE 350.1.13.10 [place] [facility] 4.2.7.2.686 [id number] 2020-03-02 2020-03-02 Orders Doctor ONESIMO 1.2.840.114 [id number] Univers 00:00:00 00:00:00 Only Unassigned, EUNICE [id number] ity of [place] [facility] 4.2.7.2.686 Isaías as [id number] [address] 2020-02-24 2020-02-24 [facility] [id number] Univers 10:30:00 10:30:00 ANNMARIE whitman o f [facility] 2020-02-24 2020-02-24 Outpatient [facility] [id number] Univers 10:30:00 10:30:00 ANNMARIE [id number] ity o f [facility] 2020-02-13 2020-02-13 Ancillary Swallows, UNIVERSIT 1.2.840.114 [id number] 11:00:12 11:30:12 Visit Gal Speech Y 350.1.13.10 Modified NATIONAL 4.2.7.2.686 [place] BANK [id number] BLDG. 145 2020-02-13 2020-02-13 Ancillary Swallows, Gal Speech Modifie d Barium UNIVERSIT 1.2.840.114 [id number] Univers 11:00:12 11:30:12 Visit [place], Yeesanjuana Ross 350.1.13.10 ity of NATIONAL 4.2.7.2.686 Isaías as [id number] [facility] [place] 2020-02-13 2020-02-13 Outpatient [facility] [id number] [facility] 09:00:00 09:00:00 ANNMARIE [id number] ity o f [facility] 2020-02-13 2020-02-13 Outpatient [facility] [id number] Univers 09:00:00 09:00:00 YEE whitman of [facility] 2020-01-27 2020-01-27 Office [facility], [facility] [id number] 10:43:44 11:39:23 Visit Annmarie E Y HEALTH 350.1.13.10 CLINICS 4.2.7.2.686 [id number] [facility] 2020-01-27 2020-01-27 Office [facility] [id number] [facility] 10:43:44 11:39:23 Visit Annmarie E Y HEALTH [id number] ity of [place] [id number] [address] 2020-01-27 2020-01-27 [facility] [id number] Univers 10:30:00 10:30:00 ANNMARIE [id number] ity o f [facility] 2020-01-27 2020-01-27 [facility] [id number] Univers 10:30:00 10:30:00 ANNMARIE ity o f [facility] 2020-01-27 2020-01-27 Orders Doctor ECHOLS 1.2.840.114 [id number] Univers 00:00:00 00:00:00 Only Unassigned, EUNICE 350.1.13.10 ity of [place] [facility] 4.2.7.2.686 Isaías as [id number] [facility] 009 Branch Results This patient has no known results.
--- NOTE | 2022-03-25 16:58 | RAD REPORT ---
EXAM DESCRIPTION: RAD - Knee Right 3 View - 03/25/2022 4:32 pm CLINICAL HISTORY: Right knee pain status post injury FINDINGS: No fracture or dislocation is seen.
[2022-03-25] MEDS ORDERED: HYDROCODONE/APAP 10/325 TAB ONE (17:22)
--- NOTE | 2022-03-25 17:31 | ER ---
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 Coronavirus screen: At this time, the client does not indicate any symptoms associated with coronavirus-19. Ebola Screen: No symptoms or risks identified at this time. Initial Sepsis Screen: Does the patient meet any 2 criteria? No. Patient's initial sepsis screen is negative. Does the patient have a suspected source of infection? No. Patient's initial sepsis screen is negative. Risk Assessment: Do you want to hurt yourself or someone else? Patient reports no desire to harm self or others. Onset of symptoms was March 25, 2022. Care prior to arrival: Medication(s) given: Motrin, \T\ 1000 this morning. 15:50 Method Of Arrival: Ambulatory [facility] 15:50 Acuity: CARMEN 4 7 16:40 Mechanism of Injury: Fall from standing position. Trauma event details: Injury occurred kb in the [facility], Injury occurred: in a public building. Injury occurred: March 24, 2022 Injury occurred at: 13:00. 18:13 Care prior to arrival: None. [facility] Triage Assessment: 15:52 General: Appears in no apparent distress. uncomfortable, Behavior is calm, cooperative, bm7 appropriate for age. Pain: Complains of pain in right knee. EENT: No deficits noted. No signs and/or symptoms were reported regarding the EENT system. Neuro: No deficits noted. Cardiovascular: No deficits noted. Respiratory: No deficits noted. GI: No deficits noted. No signs and/or symptoms were reported involving the gastrointestinal system. : No deficits noted. No signs and/or symptoms were reported regarding the genitourinary system. Derm: No deficits noted. No signs and/or symptoms reported regarding the dermatologic system. Musculoskeletal: Reports weakness in right knee pain in right knee. 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 - Social history:: Patient/guardian denies using tobacco products, Smoking status: Patient denies any tobacco usage or history of. - Immunization history: Last tetanus immunization: - up to date. - Family history:: not pertinent. Screenin:42 Abuse screen: Denies threats or abuse. Denies injuries from another. Nutritional kb3 screening: No deficits noted. Tuberculosis screening: No symptoms or risk factors identified. Fall Risk Fall in past 12 months (25 points). No secondary diagnosis (0 pts). No IV (0 pts). Ambulatory Aid- None/Bed Rest/Nurse Assist (0 pts). Gait- Impaired (20 pts.). Mental Status- Oriented to own ability (0 pts). Total King Fall Scale indicates High Risk Score (45 or more points). Primary Survey: 16:49 NO uncontrolled hemorrhage observed. A: The client is awake and alert. The airway is kb3 patent. Breathing/Chest: Spontaneous respiratory effort, equal unlabored respirations, breath sounds clear bilaterally, regular pattern, symmetrical chest rise and fall. Circulation: No external hemorrhage present. Regular and strong central pulse, skin warm/dry/normal color. Disability Client is alert. Exposure/Environment: There is no evidence of uncontrolled external bleeding. Reassessment Alertness and Airway: Awake and alert. The airway is patent. Breathing: Spontaneous respiratory effort, equal unlabored respirations, breath sounds clear bilaterally, regular pattern with symmetrical chest rise and fall. Circulation: No external hemorrhage noted. Regular and strong central pulse, skin warm/dry/normal color. Disability: Alert. Secondary Survey: 16:49 Musculoskeletal: Reports pain in right knee. kb3 Assessment: 16:40 Reassessment: No changes from previously documented assessment. Patient and/or family kb3 updated on plan of care and expected duration. Pain level reassessed. General: Received care of pt from [facility]. Pt reports she fell from standing while at work yesterday and twisted her right knee. Pt was ambulatory at scene. States severe jimy-patellar pain and difficulty walking today.. Vital Signs: 15:50 BP 114 / 78; Pulse 72; Resp 16; Temp 97.7(TE); Pulse Ox 100% on R/A; Weight 72.12 kg bm7 (R); Height 5 ft. 5 in. (165.10 cm); Pain 10/10; 18:00 BP 117 / 75; Pulse 70; Resp 16; Pulse Ox 100% ; Pain 8/10; kb3 15:50 Body Mass Index 26.46 (72.12 kg, 165.10 cm) bm7 Zach Coma Score: 16:49 Eye Response: spontaneous(4). Verbal Response: oriented(5). Motor Response: obeys kb3 commands(6). Total: 15. Trauma Score (Adult): 16:49 Eye Response: spontaneous(1); Verbal Response: oriented(1); Motor Response: obeys kb3 commands(2); Systolic BP: > 89 mm Hg(4); Respiratory Rate: 10 to 29 per min(4); Zach Score: 15; Trauma Score: 12 ED Course: 15:44 Patient arrived in ED. am2 15:52 Triage completed. bm7 15:52 Arm band placed on right wrist. bm7 16:17 Marciano Olivas MD is Attending Physician. jay 16:23 Gerda Gonsales, RN is Primary Nurse. kb3 16:34 Knee Right 3 View In Process Unspecified. EDMS 16:49 Patient has correct armband on for positive identification. Bed in low position. Call kb3 light in reach. Side rails up X 1. Adult w/ patient. 16:49 Patient maintains SpO2 saturation greater than 95% on room air. kb3 17:30 Tiago Zimmerman MD is Referral Physician. jay 18:13 No provider procedures requiring assistance completed. Patient did not have IV access kb3 during this emergency room visit. Administered Medications: 17:25 Drug: [place] (HYDROcodone-acetaminophen) 10 mg-325 mg 1 tabs Route: PO; kb3 17:56 Follow up: Response: No adverse reaction; Pain is decreased kb3 Medication: 16:42 VIS not applicable for this client. kb3 Outcome: 17:30 Discharge ordered by . jay 18:14 Discharged to home via wheelchair. kb3 18:14 Condition: stable 18:14 Discharge instructions given to patient, Instructed on discharge instructions, follow up and referral plans. medication usage, crutch walking, Demonstrated understanding of instructions, follow-up care, medications, crutch walking, Prescriptions given X 2. 18:17 Patient left the ED. kb3 Signatures: Dispatcher [employer] EDMS Marciano Olivas MD MD cha Moreno, Amanda am2 Ofelia Maddox, RN RN 7 Gerda Gonsales, RN RN kb3 Corrections: (The following items were deleted from the chart) 16:47 16:40 Trauma event details: Injury occurred in the [facility], Injury occurred: kb3 in a public building. Injury occurred: March 25, 2022 Injury occurred at: 13:00 3 16:48 16:40 Reassessment: No changes from previously documented assessment. Patient and/or kb3 family updated on plan of care and expected duration. Pain level reassessed. 3 16:48 16:40 General: Received care of pt from [facility]. Pt reports she fell from standing while kb3 at work today and struck knee on hard tile floor. Pt was ambulatory at scene. States severe jimy-patellar pain and difficulty walking. kb3
--- NOTE | 2022-03-25 17:31 | EDPHYS ---
Physician Documentation [facility] Name: Mi Ortiz Age: 56 yrs Sex: Female : 1965 Arrival Date: 03/25/2022 Time: 15:44 Bed 9 Private MD: ED Physician Marciano Olivas HPI: 03/25 17:21 This 56 yrs old Female presents to ER via Ambulatory with complaints of Fall jay Injury, Leg Pain. 17:21 Details of fall: The patient fell from a height. jay 17:23 Onset: The symptoms/episode began/occurred just prior to arrival. Associated injuries: jay The patient sustained right knee, contusion, decreased range of motion, painful injury, swelling. 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 - Social history:: Patient/guardian denies using tobacco products, Smoking status: Patient denies any tobacco usage or history of. - Immunization history: Last tetanus immunization: - up to date. - Family history:: not pertinent. ROS: 17:23 Constitutional: Negative for fever, chills, and weight loss, Eyes: Negative for injury, jay pain, redness, and discharge, ENT: Negative for injury, pain, and discharge, Neck: Negative for injury, pain, and swelling, Cardiovascular: Negative for chest pain, palpitations, and edema, Respiratory: Negative for shortness of breath, cough, wheezing, and pleuritic chest pain, Abdomen/GI: Negative for abdominal pain, nausea, vomiting, diarrhea, and constipation, Back: Negative for injury and pain, : Negative for injury, bleeding, discharge, and swelling, Skin: Negative for injury, rash, and discoloration, Neuro: Negative for headache, weakness, numbness, tingling, and seizure, Psych: Negative for depression, anxiety, suicide ideation, homicidal ideation, and hallucinations, Allergy/Immunology: Negative for hives, rash, and allergies, Endocrine: Negative for neck swelling, polydipsia, polyuria, polyphagia, and marked weight changes, Hematologic/Lymphatic: Negative for swollen nodes, abnormal bleeding, and unusual bruising. 17:23 MS/extremity: Positive for decreased range of motion, pain, swelling, tenderness. Exam: 17:23 Constitutional: This is a well developed, well nourished patient who is awake, alert, jay and in no acute distress. Head/Face: Normocephalic, atraumatic. Eyes: Pupils equal round and reactive to light, extra-ocular motions intact. Lids and lashes normal. Conjunctiva and sclera are non-icteric and not injected. Cornea within normal limits. Periorbital areas with no swelling, redness, or edema. ENT: Nares patent. No nasal discharge, no septal abnormalities noted. Tympanic membranes are normal and external auditory canals are clear. Oropharynx with no redness, swelling, or masses, exudates, or evidence of obstruction, uvula midline. Mucous membranes moist. Neck: Trachea midline, no thyromegaly or masses palpated, and no cervical lymphadenopathy. Supple, full range of motion without nuchal rigidity, or vertebral point tenderness. No Meningismus. Chest/axilla: Normal chest wall appearance and motion. Nontender with no deformity. No lesions are appreciated. Cardiovascular: Regular rate and rhythm with a normal S1 and S2. No gallops, murmurs, or rubs. Normal PMI, no JVD. No pulse deficits. Respiratory: Lungs have equal breath sounds bilaterally, clear to auscultation and percussion. No rales, rhonchi or wheezes noted. No increased work of breathing, no retractions or nasal flaring. Abdomen/GI: Soft, non-tender, with normal bowel sounds. No distension or tympany. No guarding or rebound. No evidence of tenderness throughout. Back: No spinal tenderness. No costovertebral tenderness. Full range of motion. Skin: Warm, dry with normal turgor. Normal color with no rashes, no lesions, and no evidence of cellulitis. Neuro: Awake and alert, GCS 15, oriented to person, place, time, and situation. Cranial nerves II-XII grossly intact. Motor strength 5/5 in all extremities. Sensory grossly intact. Cerebellar exam normal. Normal gait. Psych: Awake, alert, with orientation to person, place and time. Behavior, mood, and affect are within normal limits. 17:23 Musculoskeletal/extremity: ROM: limited active range of motion, limited passive range of motion, limited active range of motion due to pain, limited passive range of motion due to pain, Circulation is intact in all extremities. Sensation intact. DVT Exam: negative Homans' sign noted on exam, no appreciated bluish discoloration, no erythema, no increased warmth, pain, swelling, tenderness. 17:31 Musculoskeletal/extremity: Joints: effusion, limited range of motion, pain at rest, jay painful range of motion, swelling, tenderness, NEGATIVE SANDRA. Vital Signs: 15:50 BP 114 / 78; Pulse 72; Resp 16; Temp 97.7(TE); Pulse Ox 100% on R/A; Weight 72.12 kg bm7 (R); Height 5 ft. 5 in. (165.10 cm); Pain 10/10; 18:00 BP 117 / 75; Pulse 70; Resp 16; Pulse Ox 100% ; Pain 8/10; kb3 15:50 Body Mass Index 26.46 (72.12 kg, 165.10 cm) bm7 [place] Coma Score: 16:49 Eye Response: spontaneous(4). Verbal Response: oriented(5). Motor Response: obeys kb3 commands(6). Total: 15. Trauma Score (Adult): 16:49 Eye Response: spontaneous(1); Verbal Response: oriented(1); Motor Response: obeys kb3 commands(2); Systolic BP: > 89 mm Hg(4); Respiratory Rate: 10 to 29 per min(4); Zach Score: 15; Trauma Score: 12 MDM: 16:17 Patient medically screened. jay 17:25 Differential diagnosis: contusion, fracture, sprain, strain. Data reviewed: vital jay signs, nurses notes, radiologic studies, plain films. 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 rate is 72 beats/min, rhythm is regular, Pulse oximetry: on room air is 100 %. Counseling: I had a detailed discussion with the patient and/or guardian regarding: the historical points, exam findings, and any diagnostic results supporting the discharge/admit diagnosis, radiology results, the need for outpatient follow up, for definitive care, a family practitioner, a orthopedic surgeon. 03/25 16:34 Order name: Knee Right 3 View EDMS 08/19 16:17 Order name: Ice pack; Complete Time: 16:28 jay 03/25 17:21 Order name: Knee Immobilizer; Complete Time: 17:56 jay 03/25 18:02 Order name: Crutches; Complete Time: 18:16 jay Administered Medications: 17:25 Drug: [place] (HYDROcodone-acetaminophen) 10 mg-325 mg 1 tabs Route: PO; kb3 17:56 Follow up: Response: No adverse reaction; Pain is decreased kb3 Disposition Summary: 03/25/22 17:30 Discharge Ordered Location: Home jay Problem: new jay Symptoms: have improved jay Condition: Stable jay Diagnosis - Fall on same level, unspecified jay - Pain in right knee jay - Effusion, right knee jay Followup: jay - With: Private Physician - When: 2 - 3 days - Reason: Recheck today's complaints, Continuance of care, Re-evaluation by your physician Followup: jay - With: Tiago Zimmerman MD - When: 2 - 3 days - Reason: Recheck today's complaints, Re-evaluation by your physician Discharge Instructions: - Discharge Summary Sheet jay - Joint Pain jay - Knee Effusion jay - Musculoskeletal Pain jay - Acute Knee Pain, Adult jay - Knee Effusion, [id number] jay - Joint Pain, [id number] jay Forms: - Medication Reconciliation Form jay - Thank You Letter jay - Antibiotic Education jay - Prescription Opioid Use jay Prescriptions: - Ibuprofen 600 mg Oral Tablet - take 1 tablet by ORAL route every 6 hours As needed take with food; 30 tablet; jay Refills: 0, Product Selection Permitted - Tylenol-Codeine #3 300 mg-30 mg Oral - take 2 tablet by ORAL route every 6 hours; 24 tablet; Refills: 0, Product [facility] Selection Permitted Signatures: Dispatcher [employer] EDMarciano Kevin MD MD cha McCarthy, Brittany RN RN bm7 Gerda Gonsales RN RN kb3 Corrections: (The following items were deleted from the chart) 16:33 15:56 Knee Left 3 View+RAD.RAD.[email or web address] ordered. EDCO EDMS
[2022-03-25 20:30] VITALS: TEMP 97.7; O2SAT 100
[2022-03-25 20:38] VITALS: BP 117/75
== END 2022-03-25 18:17 | disposition home or self-care (01) ==
LOC: ER 15:43
DX: M25.461 Effusion, right knee (principal); W18.30XA Fall on same level, unspecified, initial encounter; I10 Essential (primary) hypertension; Z88.1 Allergy status to other antibiotic agents
CPT/HCPCS: 99284

== ENCOUNTER 2022-04-11 07:37 | Emergency (ER) | payer BC ==
--- OUTSIDE RECORDS SUMMARY | 2022-04-11 07:42 | XMS REPORT | Continuity of Care Document ---
:1965 Author Organization [facility] [place] t Address [address] [place] [address] [address]. Os[address]. [address] [place] [address] Care Team Providers Name Role Phone PCP, PATIENT DOES NOT HAVE A Primary Care Physician Unavaila Rossi Carter Attending Clinician Unavailable Only, Adc Pob2 Test Attending Clinician Unavailable Gibran Walters DO Attending Clinician GIBRAN WALTERS Attending Clinician Unavailable Izabela Tineo RN Attending Clinician Unavailable Elicia Garcia RN Attending Clinician Unavailable Doctor Unassigned, [place] Attending Clinician Unavailable Annmarie Aparicio Attending Clinician ANNMARIE DENSON Attending Clinician Unavailable Swallows, Gal Speech Modified Barium Attending Clinician Jeri carol ann [place] PHD, Yee Rosen Attending Clinician YEE DOVER Attending Clinician Unavailable Payers Payer Name Policy Type Policy Number Effective Date Expiration Date S ource Problems Condition Condition Condition Status Onset Resolution Last Treating Co mments Source Name Details Category Date Date Treatment Clinician Date BMI BMI Disease Active 2016-08 Univers 29.0-29.9, 29.0-29.9, 1-10 it y of adult adult 00:00: [address] Branch Prolapse Prolapse Disease Active 2016-08 [place] status 00 Ne dical Branch Essential Essential Disease Active 2014-08 Uni vers hypertensi hypertensi 1-20 [place], benign [place] benign [place] Contracept Contracept Disease Active 2014-08 U oswaldo márquez yulisa 1-13 [place] management [place] Acute Acute Disease Active 2014-08 Univers cystitis cystitis 1-11 ity of without without 00:00: [place] hematuria hematuria 00 [facility] Allergies, Adverse Reactions, Alerts Allergy Allergy Status Severity Reaction(s) Onset Inactive Treating Comm ents Source Name Type Date Date Clinician NO KNOWN Drug Active Univers ALLERGIE Class ity of S [facility] Social History Social Habit Start Date Stop Date Quantity Comments Source Exposure to Not sure [facility] SARS-CoV-2 (event) Medica l Branch Alcohol intake 2020-01-27 2020-01-27 0 /d [facility] 00:00:00 00:00:00 Medical Branch Tobacco use and 2013-11-20 2013-11-20 Never used [facility] exposure 00:00:00 00:00:00 Medical Branch Sex [birth year] [facility] 00:00:00 00:00:00 Medical Branch Smoking Status Start Date Stop Date Source Never smoker [facility] Medications Ordered Filled Start Stop Current Ordering Indication Dosage Frequency Signature Comments Components Source Medication Medication Date Date Medication? Clinician (SIG) Name Name pantoprazol 2019-0 Yes [id number] 40mg Take 1 Univers e 40 mg EC 6-22 tablet by ity of tablet 00:00: mouth [place] 00 daily. Medical Branch pantoprazol 2019-0 Yes [id number] 40mg Take 1 Univers e 40 mg EC 6-22 tablet by ity of tablet 00:00: mouth [place] 00 daily. Medical Branch pantoprazol 2019-0 Yes [id number] 40mg Take 1 Univers e 40 mg EC 6-22 tablet by ity of tablet 00:00: mouth [place] 00 daily. Medical Branch pantoprazol 2019-0 Yes [id number] 40mg Take 1 Univers e 40 mg EC 6-22 tablet by ity of tablet 00:00: mouth [place] 00 daily. Medical Branch pantoprazol 0 Yes [id number] 40mg Take 1 Univers e 40 mg EC 6-22 tablet by ity of tablet 00:00: mouth [place] 00 daily. Medical Branch pantoprazol 2019-0 Yes [id number] 40mg Take 1 Univers e 40 mg EC 6-22 tablet by ity of tablet 00:00: mouth [place] 00 daily. Medical Branch pantoprazol 2019-0 Yes [id number] 40mg Take 1 Univers e 40 mg EC 6-22 tablet by ity of tablet 00:00: mouth [place] 00 daily. Medical Branch pantoprazol 2019-0 Yes [id number] 40mg Take 1 Univers e 40 mg EC 6-22 tablet by ity of tablet 00:00: mouth [place] 00 daily. Medical Branch pantoprazol 2019-0 Yes [id number] 40mg Take 1 Univers e 40 mg EC 6-22 tablet by ity of tablet 00:00: mouth [place] 00 daily. Medical Branch pantoprazol 2019-0 Yes [id number] 40mg Take 1 Univers e 40 mg EC 6-22 tablet by ity of tablet 00:00: mouth [place] 00 daily. Medical Branch clindamycin 2018- Yes [id number] 300mg Take 1 Univers 300 mg 3-10 capsule by ity of capsule 00:00: mouth 3 [place] 00 (three) Medical times Branch daily. traMADOL 2018- Yes [id number] 50mg Take 1 Uni vers (ULTRAM) 50 3-10 tablet by ity of mg tablet 00:00: mouth [place] 00 every 6 Medical (six) Branch hours as needed for Pain (scale 7-10). clindamycin 2019-0 Yes [id number] 300mg Take 1 Univers 300 mg 3-10 capsule by ity of capsule 00:00: mouth (three) Medical times Branch daily. traMADOL 2019-0 Yes [id number] 50mg Take 1 Uni vers (ULTRAM) 50 3-10 tablet by ity of mg tablet 00:00: mouth [place] 00 every 6 Medical (six) Branch hours as needed for Pain (scale 7-10). clindamycin 2019-0 Yes [id number] 300mg Take 1 Univers 300 mg 3-10 capsule by ity of capsule 00:00: mouth (three) Medical times Branch daily. traMADOL 2019-0 Yes [id number] 50mg Take 1 Uni vers (ULTRAM) 50 3-10 tablet by ity of mg tablet 00:00: mouth [place] 00 every 6 Medical (six) Branch hours as needed for Pain (scale 7-10). clindamycin 2019-0 Yes [id number] 300mg Take 1 Univers 300 mg 3-10 capsule by ity of capsule 00:00: mouth (three) Medical times Branch daily. traMADOL 2019-0 Yes [id number] 50mg Take 1 Uni vers (ULTRAM) 50 3-10 tablet by ity of mg tablet 00:00: mouth [place] 00 every 6 Medical (six) Branch hours as needed for Pain (scale 7-10). clindamycin 2019-0 Yes [id number] 300mg Take 1 Univers 300 mg 3-10 capsule by ity of capsule 00:00: mouth (three) Medical times Branch daily. traMADOL 2019-0 Yes [id number] 50mg Take 1 Uni vers (ULTRAM) 50 3-10 tablet by ity of mg tablet 00:00: mouth [place] 00 every 6 Medical (six) Branch hours as needed for Pain (scale 7-10). clindamycin 2019-0 Yes [id number] 300mg Take 1 Univers 300 mg 3-10 capsule by ity of capsule 00:00: mouth (three) Medical times Branch daily. traMADOL 2019-0 Yes [id number] 50mg Take 1 Uni vers (ULTRAM) 50 3-10 tablet by ity of mg tablet 00:00: mouth [place] 00 every 6 Medical (six) Branch hours as needed for Pain (scale 7-10). clindamycin 2019-0 Yes [id number] 300mg Take 1 Univers 300 mg 3-10 capsule by ity of capsule 00:00: mouth 3 (three) Medical times Branch daily. traMADOL 2019-0 Yes [id number] 50mg Take 1 Uni vers (ULTRAM) 50 3-10 tablet by ity of mg tablet 00:00: mouth [place] 00 every 6 Medical (six) Branch hours as needed for Pain (scale 7-10). clindamycin 2019-0 Yes [id number] 300mg Take 1 Univers 300 mg 3-10 capsule by ity of capsule 00:00: mouth (three) Medical times Branch daily. traMADOL 2019-0 Yes [id number] 50mg Take 1 Uni vers (ULTRAM) 50 3-10 tablet by ity of mg tablet 00:00: mouth [place] 00 every 6 Medical (six) Branch hours as needed for Pain (scale 7-10). clindamycin 2019-0 Yes [id number] 300mg Take 1 Univers 300 mg 3-10 capsule by ity of capsule 00:00: mouth (three) Medical times Branch daily. traMADOL 2019-0 Yes [id number] 50mg Take 1 Uni vers (ULTRAM) 50 3-10 tablet by ity of mg tablet 00:00: mouth [place] 00 every 6 Medical (six) Branch hours as needed for Pain (scale 7-10). clindamycin 2019-0 Yes [id number] 300mg Take 1 Univers 300 mg 3-10 capsule by ity of capsule 00:00: mouth (three) Medical times Branch daily. traMADOL 2019-0 Yes [id number] 50mg Take 1 Uni vers (ULTRAM) 50 3-10 tablet by ity of mg tablet 00:00: mouth [place] 00 every 6 Medical (six) Branch hours as needed for Pain (scale 7-10). clindamycin 2019-0 Yes [id number] 300mg Take 1 Univers 300 mg 3-10 capsule by ity of capsule 00:00: mouth (three) Medical times Branch daily. traMADOL 2019-0 Yes [id number] 50mg Take 1 Uni vers (ULTRAM) 50 3-10 tablet by ity of mg tablet 00:00: mouth [place] 00 every 6 Medical (six) Branch hours as needed for Pain (scale 7-10). ibuprofen 2018-0 Yes 800mg Take 1 Unive [...] 00:00: mouth [place] 00 every Medical morning. [facility] Immunizations Ordered Filled Immunization Date Status Comments [facility] e Immunization Name Name TDAP (ADACEL) 2015-02-04 Completed University of VACCINE 00:00:00 [facility] TDAP (ADACEL) 2015-02-04 Completed University of VACCINE 00:00:00 [facility] TDAP (ADACEL) 2015-02-04 Completed University of VACCINE 00:00:00 [facility] TDAP (ADACEL) 2015-02-04 Completed University of VACCINE 00:00:00 [facility] TDAP (ADACEL) 2015-02-04 Completed University of VACCINE 00:00:00 [facility] TDAP (ADACEL) 2015-02-04 Completed University of VACCINE 00:00:00 [facility] TDAP (ADACEL) 2015-02-04 Completed University of VACCINE 00:00:00 [facility] TDAP (ADACEL) 2015-02-04 Completed University of VACCINE 00:00:00 [facility] TDAP (ADACEL) 2015-02-04 Completed University of VACCINE 00:00:00 [facility] TDAP (ADACEL) 2015-02-04 Completed University of VACCINE 00:00:00 [facility] TDAP (ADACEL) 2015-02-04 Completed University of VACCINE 00:00:00 [facility] Vital Signs Vital Name Observation Time Observation Value Comments Source Systolic blood 2020-01-27 15:55:00 126 mm[Hg] Univer sity of pressure [facility] Diastolic blood 2020-01-27 15:55:00 89 mm[Hg] Unive rsity of pressure [facility] Heart rate 2020-01-27 15:55:00 83 /min Universi ty of [facility] Body temperature 2020-01-27 15:55:00 36.33 Rossi Univ ersity of [facility] Body height 2020-01-27 15:55:00 165.1 cm Universi ty of [facility] Body weight 2020-01-27 15:55:00 87.907 kg Universi ty of [facility] BMI 2020-01-27 15:55:00 32.25 kg/m2 Universi ty of [facility] Systolic blood 2020-01-27 15:55:00 126 mm[Hg] Univer sity of pressure [facility] Diastolic blood 2020-01-27 15:55:00 89 mm[Hg] Unive rsity of pressure [facility] Heart rate 2020-01-27 15:55:00 83 /min Universi ty of [facility] Body temperature 2020-01-27 15:55:00 36.33 Rossi Univ ersity of [facility] Body height 2020-01-27 15:55:00 165.1 cm Universi ty of [facility] Body weight 2020-01-27 15:55:00 87.907 kg Universi ty of [facility] BMI 2020-01-27 15:55:00 32.25 kg/m2 Universi ty of [facility] Procedures Procedure Date / Time Performed Performing Clinician Sour e EXTERNAL PROVIDER 2021-02-17 05:01:00 Doctor Unassigned, No Univ [facility] of [place] RECORDS Name Medical Branch EXTERNAL PROVIDER 2020-03-02 05:01:00 Doctor Unassigned, No [facility] RECORDS Name Medical Branch ASSIGNMENT OF BENEFITS 2020-01-27 15:36:07 Doctor Unassigned, No [facility] Name Medical Branch Encounters Start End Encounter Admission Attending Care Care Encounter Source Date/Time Date/Time Type Type Clinicians Facility Department ID 2022-04-05 Outpatient Timmy, STLMLC STLMLC [id number] Common 10:41:01 Rossi [facility] 2022-04-05 2022-04-05 ambulatory STLMLC STLC [id number] Common 00:00:00 00:00:00 [facility] 2021-09-01 2021-09-01 Laboratory Only, Adc Pob2 Test [facility] 1.2 .840.114 [id number] Univers 11:00:00 11:15:00 Only Gibran Walters 350.1.13 .10 [facility] 4[place]2.7.2.[place] PROF[place] [id number] Ne dical [address] 2021-09-01 2021-09-01 Outpatient R SELENA [facility] [id number] Univers 11:00:00 11:05:11 GIBRAN whitman [facility] 2021-09-01 2021-09-01 Outpatient R [facility] [id number] Univers 11:00:00 11:00:00 [id number] ity [facility] 2021-09-01 2021-09-01 Telephone ONESIMO Tineo [id number] Univers 00:00:00 00:00:00 Izabela DAWSON 350.1.13.10 it y [facility] 4.2.7.2.686 Isaías as [id number] [address] 2021-08-30 2021-08-30 Outpatient R SELENA [facility] [id number] Univers 10:30:00 10:41:00 GIBRAN whitman [facility] 2021-08-30 2021-08-30 Laboratory Only, Adc Pob2 Test [facility] 1.2 .840.114 [id number] Univers 10:30:00 10:41:00 Only Gibran Walters 350.1.13 .10 [facility] 4.2.7.2.686 [place] [id number] [address] 2021-08-30 2021-08-30 Outpatient R [facility] [id number] Univers 10:30:00 10:30:00 [id number] ity of [facility] 2021-08-30 2021-08-30 Letter ONESIMO Garcia 1.2.840.114 [id number] Univers 00:00:00 00:00:00 (Out) Elicia Kolb EUNICE 350.1.13.10 it y of HOSPITAL 4.2.7.2.686 Isaías as [id number] [facility] 019 Branch 2021-02-17 2021-02-17 Orders Doctor ONESIMO 1.2.840.114 [id number] Univers 00:00:00 00:00:00 Only Unassigned, EUNICE 350.1.13.10 ity of [place] [facility] 4.2.7.2.686 Isaías as [id number] [facility] 009 Branch 2021-02-09 2021-02-09 Telephone ANABELLA Denson 1.2.840.114 [id number] Univers 00:00:00 00:00:00 Annmarie Santiago HEALTH 350.1.13.10 ity of [place].2.[place] [id number] [place] [id number] Branch 2020-03-02 2020-03-02 Orders Doctor ONESIMO 1.2.840.114 [id number] 00:00:00 00:00:00 Only Unassigned, EUNICE 350.1.13.10 [place] [facility] 4.2.7.2.686 [id number] 2020-03-02 2020-03-02 Orders Doctor ONESIMO 1.2.840.114 [id number] Univers 00:00:00 00:00:00 Only Unassigned, EUNICE 350.1.13.10 ity of [place] [facility] 4.2.7.2.686 Isaías as [id number] [address] 2020-02-24 2020-02-24 [facility] [id number] Univers 10:30:00 10:30:00 ANNMARIE ity o f [facility] 2020-02-24 2020-02-24 [facility] [id number] [facility] 10:30:00 10:30:00 ANNMARIE ity o f [facility] 2020-02-13 2020-02-13 Ancillary Swallows, UNIVERSIT 1.2.840.114 [id number] 11:00:12 11:30:12 Visit Gal Speech Y 350.1.13.10 Modified NATIONAL 4.2.7.2.686 [facility] [id number] DG. 145 2020-02-13 2020-02-13 Ancillary Swallows, Gal Speech Modifie d Barium UNIVERSIT 1.2.840.114 [id number] Univers 11:00:12 11:30:12 Visit Yee Dover Y 350.1.13.10 ity of NATIONAL 4.2.7.2.686 Isaías as BANK [id number] [facility]. 145 [facility] 2020-02-13 2020-02-13 [facility] [id number] Univers 09:00:00 09:00:00 ANNMARIE [id number] itmarley garcia [facility] 2020-02-13 2020-02-13 [facility] [id number] Univers 09:00:00 09:00:00 YEE harriettmarley of [facility] 2020-01-27 2020-01-27 [facility] [id number] Univers 10:43:44 11:39:23 Visit Annmarie E Y HEALTH 350.1.13.10 ity of [place]2.[place] [id number] [address] 2020-01-27 2020-01-27 [facility] [id number] 10:43:44 11:39:23 Visit Annmarie E Y HEALTH 350.1.13.10 CLINICS 4.2.7.2.686 [id number] [facility] 2020-01-27 2020-01-27 [facility] [id number] Univers 10:30:00 10:30:00 ANNMARIE [id number] j carlos partida [facility] 2020-01-27 2020-01-27 Outpatient R JARETT [facility] [id number] Univers 10:30:00 10:30:00 ANNMARIE garcia f [facility] 2020-01-27 2020-01-27 Orders Doctor ONESIMO 1.2.840.114 [id number] Univers 00:00:00 00:00:00 Only Unassigned, EUNICE 350.1.13.10 ity of [place] [facility] 4.2.7.2.686 Isaías as [phone] [facility] 009 Branch Results This patient has no known results.
[2022-04-11] MEDS ORDERED: DIAZEPAM 5 MG TABLET ONE (08:26)
[2022-04-11] MEDS ORDERED: MECLIZINE HCL 12.5 MG TAB ONE (08:26)
--- NOTE | 2022-04-11 08:30 | RAD REPORT ---
EXAM DESCRIPTION: CT - Head Brain Wo Cont - 04/11/2022 8:16 am CLINICAL HISTORY: Dizziness COMPARISON: 2011 TECHNIQUE: Computed axial tomography of the head was obtained. IV contrast was not requested. All CT scans are performed using dose optimization technique as appropriate and may include automated exposure control or mA/KV adjustment according to patient size. FINDINGS: An intracranial bleed is not seen . The ventricles are normal in caliber. No significant hypodense areas within the brain visualized No extra-axial fluid collection is noted. Fluid within the sinuses/ mastoids is not seen. IMPRESSION: No acute intracranial abnormality is seen. If patient's symptoms persist MRI of the bra in would be recommended.
[2022-04-11 08:38] LABS: Absolute Lymphocytes (CBC) 2.3 K/uL (0.7-4.9); Lymphocytes % 34.2 % (15.3-44.8); MCV 85.1 fL (80-100); RBC Red Blood Cell Count 4.81 M/uL (3.86-4.86)
[2022-04-11 08:56] LABS: Potassium 3.9 mmol/L (3.5-5.1)
--- NOTE | 2022-04-11 09:18 | ER ---
Nurse's Notes [facility] Name: Mi Ortiz Age: 56 yrs Sex: Female : 1965 Arrival Date: 04/11/2022 Time: 07:40 Bed 6 Private MD: Diagnosis: Dizziness and giddiness Presentation: 04/11 07:41 Chief complaint: Spouse and/or significant other states: Feeling dizzy since yesterday 04/10. No nausea or vomiting. Eyes hurt. Coronavirus screen: Vaccine status: Patient reports receiving the 2nd dose of the covid vaccine. At this time, unable to obtain information related to travel outside the [place] At this time, the client does not indicate any symptoms associated with coronavirus-19. Ebola Screen: No symptoms or risks identified at this time. Initial Sepsis Screen: Does the patient meet any 2 criteria? No. Patient's initial sepsis screen is negative. Does the patient have a suspected source of infection? No. Patient's initial sepsis screen is negative. Risk Assessment: Do you want to hurt yourself or someone else? Patient reports no desire to harm self or others. Onset of symptoms was April 10, 2022. 07:41 Method Of Arrival: Ambulatory 07:41 Acuity: CARMEN 3 kl Triage Assessment: 07:45 General: Appears in no apparent distress. Behavior is calm, cooperative, appropriate kl for age, flat. Pain: Complains of pain in right eye and left eye. Historical: - Allergies: 07:44 amoxicillin-pot clavulanate; kl - Home Meds: 07:44 lisinopril 10 mg Oral tab 1 tab once daily [Active]; kl - PMHx: 07:44 Hypertensive disorder; kl - Immunization history:: Adult Immunizations up to date, Client reports receiving the 2nd dose of the Covid vaccine. - Social history:: Patient/guardian denies using Smoking status: Patient denies any tobacco usage or history of. Screenin:40 Abuse screen: Denies threats or abuse. Denies injuries from another. Nutritional tp1 screening: No deficits noted. Tuberculosis screening: No symptoms or risk factors identified. Fall Risk No fall in past 12 months (0 pts). No secondary diagnosis (0 pts). IV access (20 points). Ambulatory Aid- None/Bed Rest/Nurse Assist (0 pts). Gait- Normal/Bed Rest/Wheelchair (0 pts) Mental Status- Oriented to own ability (0 pts). Assessment: 08:05 General: Appears in no apparent distress. comfortable, Behavior is calm, cooperative. tp1 Pain: Denies pain. Neuro: Mayes Agitation-Sedation Scale (RASS): 0 - Alert and Calm Level of Consciousness is awake, alert, obeys commands, Oriented to person, place, time, situation, Speech is normal, Reports blurred vision dizziness. Cardiovascular: Capillary refill < 3 seconds in bilateral fingers Patient's skin is warm and dry. no peripheral edema noted. . Respiratory: Airway is patent Respiratory effort is even, unlabored. GI: Abdomen is round non-distended, Patient currently denies nausea, vomiting. : No signs and/or symptoms were reported regarding the genitourinary system. EENT: No signs and/or symptoms were reported regarding the EENT system. Derm: Skin is pink, warm \T\ dry. Musculoskeletal: Circulation, motion, and sensation intact. 08:11 Reassessment: escorted to CT via wheelchair by [employer]. tp1 08:18 Reassessment: returned from CT. tp1 08:55 Reassessment: Patient appears in no apparent distress at this time. Patient and/or tp1 family updated on plan of care and expected duration. Pain level reassessed. Patient is alert, oriented x 3, equal unlabored respirations, skin warm/dry/pink. resting in bed with eyes closed. denies dizziness at this time. 09:15 Reassessment: Received VO from DR. Ralph to ambulate PT to assess status of tp1 dizziness. PT reported dizziness when sitting at side of bed, orthostatics performed. PT reported dizziness when laying back in stretcher. provider notified. Vital Signs: 07:41 BP 126 / 99; Pulse 71; Resp 14; Temp 98.2; Pulse Ox 100% ; Weight 72.12 kg; Height 5 kl ft. 5 in. (165.10 cm); Pain 0/10; 08:08 BP 116 / 90; Pulse 74; Resp 12; Pulse Ox 99% on R/A; tp1 09:03 BP 114 / 89; Pulse 72; Resp 14; Pulse Ox 100% ; tp1 09:15 BP 114 / 88 Supine; tp1 09:15 BP 113 / 99 Sitting; tp1 09:15 BP 134 / 98 Standing; tp1 07:41 Body Mass Index 26.46 (72.12 kg, 165.10 cm) ED Course: 07:40 Patient arrived in ED. mr 07:44 Triage completed. 07:45 Arm band placed on right wrist. Patient placed in an exam room, Patient notified of wait time. 07:47 Pedro Pablo Ralph MD is Attending Physician. kdr 08:00 Placed in gown. Bed in low position. Call light in reach. Side rails up X 1. tp1 08:00 Client placed on continuous cardiac and pulse oximetry monitoring. NIBP monitoring tp1 applied. Warm blanket given. 08:05 Karen Banuelos, RN is Primary Nurse. tp1 08:17 CT Head Brain wo Cont In Process Unspecified. EDMS 08:26 Inserted saline lock: 20 gauge in right wrist, using aseptic technique. Blood collected.tp1 09:04 No provider procedures requiring assistance completed. tp1 09:48 IV discontinued, intact, bleeding controlled, No redness/swelling at site. Pressure tp1 dressing applied. Administered Medications: 08:21 Drug: Meclizine 25 mg Route: PO; tp1 09:07 Follow up: Response: Marked relief of symptoms tp1 08:21 Drug: Valium (diazepam) 5 mg Route: PO; tp1 09:07 Follow up: Response: Marked relief of symptoms tp1 Medication: 09:04 VIS not applicable for this client. tp1 Outcome: 09:17 Discharge ordered by . kdr 09:48 Discharged to home ambulatory. tp1 09:48 Condition: good 09:48 Discharge instructions given to patient, family, Instructed on discharge instructions, follow up and referral plans. medication usage, Demonstrated understanding of instructions, follow-up care, medications, Prescriptions given X 2. 09:49 Patient left the ED. tp1 Signatures: Dispatcher [employer] [place] RN RN kl Rittger, Kevin, MD MD kdr Rivera, Mary mr Karen Banuelos RN RN tp1 Corrections: (The following items were deleted from the chart) 07:45 07:44 PSHx: Cholecystectomy; [facility] 08:19 08:11 Reassessment: escorted to CT via stretcher by [employer] tp1 tp1
--- NOTE | 2022-04-11 09:18 | EDPHYS ---
Physician Documentation [facility] Name: Mi Ortiz Age: 56 yrs Sex: Female : 1965 Arrival Date: 04/11/2022 Time: 07:40 Bed 6 Private MD: ED Physician Pedro Pablo Ralph HPI: 04/11 08:06 This 56 yrs old Female presents to ER via Ambulatory with complaints of kdr Dizziness. 08:06 The patient presents with dizziness, lightheadedness, feeling off balance, vertigo. kdr Onset: The symptoms/episode began/occurred suddenly, yesterday. Context: occurred at home, occurred while the patient was at rest, just prior to the episode the patient experienced no apparent symptoms. Modifying factors: The symptoms are alleviated by closing eyes, holding head still, lying down, the symptoms are aggravated by movement of head, standing up, changing position. Associated signs and symptoms: Pertinent positives:. Severity of symptoms: At their worst the symptoms were mild moderate just prior to arrival, in the emergency department the symptoms are unchanged. Patient's baseline: Neuro: alert and fully oriented, Motor: no deficits, Ambulation: walks without assistance, Speech: normal, The patient has a previous history of None. The patient has not experienced similar symptoms in the past. The patient has not recently seen a physician. Historical: - Allergies: 07:44 amoxicillin-pot clavulanate; kl - Home Meds: 07:44 lisinopril 10 mg Oral tab 1 tab once daily [Active]; kl - PMHx: 07:44 Hypertensive disorder; kl - Immunization history:: Adult Immunizations up to date, Client reports receiving the 2nd dose of the Covid vaccine. - Social history:: Patient/guardian denies using Smoking status: Patient denies any tobacco usage or history of. ROS: 08:06 Constitutional: Negative for fever, chills, and weight loss, Eyes: Negative for injury, kdr pain, redness, and discharge, Neck: Negative for injury, pain, and swelling, Cardiovascular: Negative for chest pain, palpitations, and edema, Respiratory: Negative for shortness of breath, cough, wheezing, and pleuritic chest pain, Abdomen/GI: Negative for abdominal pain, nausea, vomiting, diarrhea, and constipation, Back: Negative for injury and pain, : Negative for injury, bleeding, discharge, and swelling, MS/Extremity: Negative for injury and deformity, Skin: Negative for injury, rash, and discoloration, Psych: Negative for depression, anxiety, suicide ideation, homicidal ideation, and hallucinations, Allergy/Immunology: Negative for hives, rash, and allergies, Endocrine: Negative for neck swelling, polydipsia, polyuria, polyphagia, and marked weight changes, Hematologic/Lymphatic: Negative for swollen nodes, abnormal bleeding, and unusual bruising. 08:06 Neuro: Positive for dizziness, gait disturbance, visual changes, Initially she was having some double vision but that is resolved, Negative for altered mental status, headache, hearing loss, loss of consciousness, numbness, seizure activity, speech changes, syncope, near syncope, tinnitus, tremor, weakness, acute changes. Exam: 08:06 Constitutional: This is a well developed, well nourished patient who is awake, alert, kdr and in no acute distress. Head/Face: Normocephalic, atraumatic. Eyes: Pupils equal round and reactive to light, extra-ocular motions intact. Lids and lashes normal. Conjunctiva and sclera are non-icteric and not injected. Cornea within normal limits. Periorbital areas with no swelling, redness, or edema. Neck: Trachea midline, no thyromegaly or masses palpated, and no cervical lymphadenopathy. Supple, full range of motion without nuchal rigidity, or vertebral point tenderness. No Meningismus. Chest/axilla: Normal chest wall appearance and motion. Nontender with no deformity. No lesions are appreciated. Cardiovascular: Regular rate and rhythm with a normal S1 and S2. No gallops, murmurs, or rubs. Normal PMI, no JVD. No pulse deficits. Respiratory: Lungs have equal breath sounds bilaterally, clear to auscultation and percussion. No rales, rhonchi or wheezes noted. No increased work of breathing, no retractions or nasal flaring. Abdomen/GI: Soft, non-tender, with normal bowel sounds. No distension or tympany. No guarding or rebound. No evidence of tenderness throughout. Back: No spinal tenderness. No costovertebral tenderness. Full range of motion. Skin: Warm, dry with normal turgor. Normal color with no rashes, no lesions, and no evidence of cellulitis. MS/ Extremity: Pulses equal, no cyanosis. Neurovascular intact. Full, normal range of motion. Psych: Awake, alert, with orientation to person, place and time. Behavior, mood, and affect are within normal limits. 08:06 Neuro: Orientation: is normal, Mentation: is normal, Memory: is normal, Cranial nerves: grossly normal, Cerebellar function: is grossly normal, is grossly normal based on the patient's age, Motor: is normal, Sensation: is normal, Gait: is unsteady, seizure activity, is not displayed by the patient, Abnormal movements: there are no abnormal movements. Vital Signs: 07:41 BP 126 / 99; Pulse 71; Resp 14; Temp 98.2; Pulse Ox 100% ; Weight 72.12 kg; Height 5 kl ft. 5 in. (165.10 cm); Pain 0/10; 08:08 BP 116 / 90; Pulse 74; Resp 12; Pulse Ox 99% on R/A; tp1 09:03 BP 114 / 89; Pulse 72; Resp 14; Pulse Ox 100% ; tp1 09:15 BP 114 / 88 Supine; tp1 09:15 BP 113 / 99 Sitting; tp1 09:15 BP 134 / 98 Standing; tp1 07:41 Body Mass Index 26.46 (72.12 kg, 165.10 cm) kl MDM: 09:17 Patient medically screened. kdr 09:34 Data reviewed: vital signs, nurses notes. ED course: HIINTS exam negative. kdr 04/11 08:05 Order name: CBC with Diff; Complete Time: 08:49 kdr 04/11 08:05 Order name: Chem 7; Complete Time: 09:34 kdr 04/11 08:04 Order name: CT Head Brain wo Cont; Complete Time: 08:49 kdr Administered Medications: 08:21 Drug: Meclizine 25 mg Route: PO; tp1 09:07 Follow up: Response: Marked relief of symptoms tp1 08:21 Drug: Valium (diazepam) 5 mg Route: PO; tp1 09:07 Follow up: Response: Marked relief of symptoms tp1 Disposition Summary: 04/11/22 09:17 Discharge Ordered Location: Home kdr Problem: new kdr Symptoms: have improved kdr Condition: Stable kdr Diagnosis - Dizziness and giddiness kdr Followup: kdr - With: Private Physician - When: 2 - 3 days - Reason: If symptoms return, Further diagnostic work-up, Recheck today's complaints, Continuance of care, Re-evaluation by your physician Discharge Instructions: - Discharge Summary Sheet kdr - Dizziness, [id number] kdr Forms: - Medication Reconciliation Form kdr - Thank You Letter kdr Prescriptions: - Meclizine 25 mg Oral Tablet - take 1 tablet by ORAL route every 8 hours As needed; 15 tablet; Refills: 0, kdr Product Selection Permitted - Benadryl 25 mg Oral Capsule - take 2 capsules by ORAL route At bedtime As needed Take as needed for sleep; 16 kdr tablet; Refills: 0, Product Selection Permitted Signatures: Dispatcher [employer] [place] RN RN kl Rittger, Kevin, MD MD kdr Parker, Tiffany, RN RN tp1 Corrections: (The following items were deleted from the chart) 07:45 07:44 PSHx: Cholecystectomy; leodan alcocer
[2022-04-11 10:20] VITALS: TEMP 98.2
[2022-04-11 10:24] VITALS: O2SAT 100
[2022-04-11 10:35] VITALS: BP 134/98
== END 2022-04-11 09:49 | disposition home or self-care (01) ==
LOC: ER 07:37
DX: R42 Dizziness and giddiness (principal); I10 Essential (primary) hypertension; Z88.1 Allergy status to other antibiotic agents
CPT/HCPCS: 85025; 80048; 36415; 70450; 99284; J8597

== ENCOUNTER 2022-10-11 16:38 | Emergency (ER) | payer BC ==
--- OUTSIDE RECORDS SUMMARY | 2022-10-11 16:41 | XMS REPORT | Continuity of Care Document ---
:1965 Author Organization [facility] t Address [address] [place] [address] [place] [id number] Care Team Providers Name Role Phone PCP, PATIENT DOES NOT HAVE A Primary Care Physician UnavailRossi Gentile Attending Clinician Unavailable Only, Adc Pob2 Test Attending Clinician Unavailable Gibran Walters DO Attending Clinician GIBRAN WALTERS Attending Clinician Unavailable Izabela Tineo RN Attending Clinician Unavailable Elicia Garcia RN Attending Clinician Unavailable Doctor Unassigned, [place] Attending Clinician Unavailable Annmarie Aparicio Attending Clinician [...] Treatment Clinician Date BMI BMI Disease Active 2017- Univers 29.0-29.9, 29.0-29.9, 1-10 it y of [...] Active 2015-08 Univers 0-06 ity of 00:00: [place] 00 Medical Branch Encounter Encounter Disease Active 2015-08 Uni vers for for 0-06 [place] breast 00 Medical examinatio examinatio Br anch n n Depo-Prove Depo-Prove Disease Active 2014-08 U oswaldo ra ra 1-20 [place] status 00 Mt dical Branch Essential Essential Disease Active 2014-08 Uni vers hypertensi hypertensi 1-20 [place], benign [place] Contracept Contracept Disease Active 2014-08 U oswaldo márquez yulisa 1-13 [place] management [place] Acute Acute Disease Active 2014-08 Univers cystitis cystitis 1-11 ity of without without 00:00: [place] hematuria hematuria 00 [facility] [id number] Primary Problem Comm on osteoarthr Spirit itis of - [facility] right knee [facility] Allergies, Adverse Reactions, Alerts Allergy Allergy Status Severity Reaction(s) Onset Inactive Treating Comm ents Source Name Type Date Date Clinician NO KNOWN Drug Active Univers ALLERGIE Class ity of S [facility] Social History Social Habit Start Date Stop Date Quantity Comments Source Exposure to Not sure [facility] SARS-CoV-2 (event) Medica l Branch Sex Assigned At Common Sp anamika - [facility] History of Tobacco [facility] - [facility] Use [facility] Alcohol intake 2020-01-27 2020-01-27 0 /d [facility] 00:00:00 00:00:00 Medical Branch Tobacco use and 2013-11-20 2013-11-20 Never used Universit y of [place] exposure 00:00:00 00:00:00 Medical Branch Smoking Status Start Date Stop Date Source Never Smoker [facility] - [facility] Medications Ordered Filled Start Stop Current Ordering Indication Dosage Frequency Signature Comments Components Source Medication Medication Date Date Medication? Clinician (SIG) Name Name Bupivicaine Bupivicaine 2021-0 No 5mg Common [place] 8-30 Spirit 00:00: - [facility] Kenalog Kenalog 2021-0 No 40mg Common (Triamcinol (Triamcinol 8-30 S pirit one) one) 00:00: - [facility] Bupivicaine Bupivicaine 2-0 No 5mg Common [place] 8-30 Spirit 00:00: - [facility] Kenalog Kenalog 2021-0 No 40mg Common (Triamcinol (Triamcinol 8-30 S pirit one) one) 00:00: - [facility] Bupivicaine Bupivicaine 2-0 No 5mg Common [place] 8-30 Spirit 00:00: - [facility] Kenalog Kenalog 2021-0 No 40mg Common (Triamcinol (Triamcinol 8-30 S pirit one) one) 00:00: - [facility] pantoprazol 2020-0 Yes [id number] 40mg Take 1 Univers e 40 mg EC 6-22 tablet by ity of tablet 00:00: mouth [place] 00 daily. Medical Branch pantoprazol 2020-0 Yes [id number] 40mg Take 1 Univers e 40 mg EC 6-22 tablet by ity of tablet 00:00: mouth [place] 00 daily. Medical Branch pantoprazol 2020-0 Yes [id number] 40mg Take 1 Univers e 40 mg EC 6-22 tablet by ity of tablet 00:00: mouth [place] 00 daily. Medical Branch pantoprazol 2020-0 Yes [id number] 40mg Take 1 Univers e 40 mg EC 6-22 tablet by ity of tablet 00:00: mouth [place] 00 daily. Medical Branch pantoprazol 2020-0 Yes [id number] 40mg Take 1 Univers e 40 mg EC 6-22 tablet by ity of tablet 00:00: mouth [place] 00 daily. Medical Branch pantoprazol 2019-0 Yes [id number] 40mg Take 1 Univers e 40 mg EC 6-22 tablet by ity of tablet 00:00: mouth [place] 00 daily. Medical Branch pantoprazol 2019-0 Yes [id number] 40mg Take 1 Univers e 40 mg EC 6-22 tablet by ity of tablet 00:00: mouth [place] 00 daily. Medical Branch pantoprazol 2019-0 Yes [id number] 40mg Take 1 Univers e 40 mg EC 6-22 tablet by ity of tablet 00:00: mouth [place] 00 daily. Medical Branch pantoprazol 2019-0 Yes [id number] 40mg Take 1 Univers e 40 mg EC 6-22 tablet by ity of tablet 00:00: mouth [place] 00 daily. Medical Branch pantoprazol 2019-0 Yes [id number] 40mg Take 1 Univers e 40 mg EC 6-22 tablet by ity of tablet 00:00: mouth [place] 00 daily. Medical Branch traMADOL 2018-0 Yes [id number] 50mg Take 1 Uni vers (ULTRAM) 50 3-10 tablet by ity of mg tablet 00:00: mouth [place] 00 every 6 Medical (six) Branch hours as needed for Pain (scale 7-10). clindamycin 2019-0 Yes [id number] 300mg Take 1 Univers 300 mg 3-10 capsule by ity of capsule 00:00: mouth 3 (three) Medical times Branch daily. traMADOL 2019-0 Yes [id number] 50mg Take 1 Uni vers (ULTRAM) 50 3-10 tablet by ity of mg tablet 00:00: mouth [place] 00 every 6 Medical (six) Branch hours as needed for Pain (scale 7-10). clindamycin 2019-0 Yes [id number] 300mg Take 1 Univers 300 mg 3-10 capsule by ity of capsule 00:00: mouth 3 [place] (three) Medical times Branch daily. traMADOL 2019-0 Yes [id number] 50mg Take 1 Uni vers (ULTRAM) 50 3-10 tablet by ity of mg tablet 00:00: mouth [place] 00 every 6 Medical (six) Branch hours as needed for Pain (scale 7-10). clindamycin 2019-0 Yes [id number] 300mg Take 1 Univers 300 mg 3-10 capsule by ity of capsule 00:00: mouth 3 (three) Medical times Branch daily. traMADOL 2019-0 Yes [id number] 50mg Take 1 Uni vers (ULTRAM) 50 3-10 tablet by ity of mg tablet 00:00: mouth [place] 00 every 6 Medical (six) Branch hours as needed for Pain (scale 7-10). clindamycin 2019-0 Yes [id number] 300mg Take 1 Univers 300 mg 3-10 capsule by ity of capsule 00:00: mouth 3 00 (three) Medical times Branch daily. traMADOL 2019-0 Yes [id number] 50mg Take 1 Uni vers (ULTRAM) 50 3-10 tablet by ity of mg tablet 00:00: mouth [place] 00 every 6 Medical (six) Branch hours as needed for Pain (scale 7-10). clindamycin 2019-0 Yes [id number] 300mg Take 1 Univers 300 mg 3-10 capsule by ity of capsule 00:00: mouth 3 (three) Medical times Branch daily. traMADOL 2019-0 Yes [id number] 50mg Take 1 Uni vers (ULTRAM) 50 3-10 tablet by ity of mg tablet 00:00: mouth [place] 00 every 6 Medical (six) Branch hours as needed for Pain (scale 7-10). clindamycin 2019-0 Yes [id number] 300mg Take 1 Univers 300 mg 3-10 capsule by ity of capsule 00:00: mouth (three) Medical times Branch daily. traMADOL 2019-0 Yes [id number] 50mg Take 1 Uni vers (ULTRAM) 50 3-10 tablet by ity of mg tablet 00:00: mouth [place] 00 every 6 Medical (six) Branch hours as needed for Pain (scale 7-10). clindamycin 2019-0 Yes [id number] 300mg Take 1 Univers 300 mg 3-10 capsule by ity of capsule 00:00: mouth 3 (three) Medical times Branch daily. traMADOL 2019-0 Yes [id number] 50mg Take 1 Uni vers (ULTRAM) 50 3-10 tablet by ity of mg tablet 00:00: mouth [place] 00 every 6 Medical (six) Branch hours as needed for Pain (scale 7-10). clindamycin 2019-0 Yes [id number] 300mg Take 1 Univers 300 mg 3-10 capsule by ity of capsule 00:00: mouth 3 00 (three) Medical times Branch daily. traMADOL 2019-0 Yes [id number] 50mg Take 1 Uni vers (ULTRAM) 50 3-10 tablet by ity of mg tablet 00:00: mouth [place] 00 every 6 Medical (six) Branch hours as needed for Pain (scale 7-10). clindamycin 2019-0 Yes [id number] 300mg Take 1 Univers 300 mg 3-10 capsule by ity of capsule 00:00: mouth 3 [place] 00 (three) Medical times Branch daily. traMADOL 2019-0 Yes [id number] 50mg Take 1 Uni vers (ULTRAM) 50 3-10 tablet by ity of mg tablet 00:00: mouth [place] 00 every 6 Medical (six) Branch hours as needed for Pain (scale 7-10). clindamycin 2019-0 Yes [id number] 300mg Take 1 Univers 300 mg 3-10 capsule by ity of capsule 00:00: mouth 3 00 (three) Medical times Branch daily. traMADOL 2019-0 Yes [id number] 50mg Take 1 Uni vers (ULTRAM) 50 3-10 tablet by ity of mg tablet 00:00: mouth [place] 00 every 6 Medical (six) Branch hours as needed for Pain (scale 7-10). clindamycin 2019-0 Yes [id number] 300mg Take 1 Univers 300 mg 3-10 [...] daily as needed for Muscle Spasms. hydroCHLORO 2016- Yes 25mg Take 1 Univ [...] mouth [place] 00 every Medical morning. Branch Lisinopril/ Lisinopril/ No Lisinopril HCTZ HCTZ /HCTZ Lisinopril/ Lisinopril/ No Lisinopril HCTZ HCTZ /HCTZ Lisinopril/ Lisinopril/ No Lisinopril HCTZ HCTZ /HCTZ Immunizations Ordered Filled Immunization Date Status Comments [facility] e Immunization Name Name TDAP (ADACEL) 2015-02-04 Completed University of VACCINE 00:00:00 [facility] TDAP (ADACEL) 2015-02-04 Completed University of VACCINE 00:00:00 [facility] TDAP (ADACEL) 2015-02-04 Completed University of VACCINE 00:00:00 [facility] TDAP (ADACEL) 2015-02-04 Completed University of VACCINE 00:00:00 [facility] TDAP (ADACEL) 2015-02-04 Completed University of VACCINE 00:00:00 [facility] TDAP (ADACEL) 2015-02-04 Completed University of VACCINE 00:00:00 [facility] TDAP (ADACEL) 2015-02-04 Completed University of VACCINE 00:00:00 [facility] [place] [facility] Branch TDAP (ADACEL) 2015-02-04 Completed University of VACCINE 00:00:00 [facility] TDAP (ADACEL) 2015-02-04 Completed University of VACCINE 00:00:00 [facility] [place] [facility] Branch TDAP (ADACEL) 2015-02-04 Completed University of VACCINE 00:00:00 [facility] TDAP (ADACEL) 2015-02-04 Completed University of VACCINE 00:00:00 [facility] Vital Signs Vital Name Observation Time Observation Value Comments Source height 2022-05-10 15:00:00 65 [in_i] Common S pirit - [facility] weight 2022-05-10 15:00:00 159 [lb_av] [facility] temperature 2022-05-10 15:00:00 98.1 [degF] [facility] bmi 2022-05-10 15:00:00 26.46 kg/m2 Common [facility] blood pressure 2022-05-10 15:00:00 114 mm[Hg] [facility] - systolic [facility] blood pressure 2022-05-10 15:00:00 70 mm[Hg] [facility] - diastolic [facility] height 2022-04-05 10:30:00 65 [in_i] [facility] weight 2022-04-05 10:30:00 159 [lb_av] [facility] temperature 2022-04-05 10:30:00 97.6 [degF] [facility] bmi 2022-04-05 10:30:00 26.46 kg/m2 [facility] blood pressure 2022-04-05 10:30:00 126 mm[Hg] [facility] - systolic [facility] blood pressure 2022-04-05 10:30:00 84 mm[Hg] [facility] - diastolic [facility] Systolic blood 2020-01-27 15:55:00 126 mm[Hg] Univer sity of pressure [facility] Diastolic blood 2020-01-27 15:55:00 89 mm[Hg] Unive rsity of pressure [facility] Heart rate 2020-01-27 15:55:00 83 /min [facility] Body temperature 2020-01-27 15:55:00 [facility].33 [facility] height 2020-01-27 15:55:00 165.1 cm [facility] Body weight 2020-01-27 15:55:00 87.907 kg [facility] BMI 2020-01-27 15:55:00 32.25 kg/m2 [facility] Systolic blood 2020-01-27 15:55:00 126 mm[Hg] Univer sity of pressure [facility] Diastolic blood 2020-01-27 15:55:00 89 mm[Hg] Unive rsity of [facility] Heart rate 2020-01-27 15:55:00 83 /min [facility] Body temperature 2020-01-27 15:55:00 36.33 [facility] Body height 2020-01-27 15:55:00 165.1 cm [facility] Body weight 2020-01-27 15:55:00 87.907 kg [facility] BMI 2020-01-27 15:55:00 32.25 kg/m2 [facility] Procedures Procedure Date / Time Performed Performing Clinician [facility] e EXTERNAL PROVIDER 2021-02-17 05:01:00 Doctor Unassigned, No [facility] RECORDS Name Medical Branch EXTERNAL PROVIDER 2020-03-02 05:01:00 Doctor Unassigned, No [facility] RECORDS Name [facility] ASSIGNMENT OF BENEFITS 2020-01-27 15:36:07 Doctor Unassigned, No [facility] Encounters Start End Encounter Admission Attending Care Care Encounter Source Date/Time Date/Time Type Type Clinicians Facility Department ID 2022-05-10 Outpatient Timmy, STITZELLC STLMLC [id number] Common 13:46:02 Rossi [facility] 2022-05-09 Outpatient Timmy, STITZELLC STLMLC [id number] Common 11:56:01 Rossi [facility] 2022-04-12 Outpatient [place], STITZELLC STLMLC [id number] Common 09:34:01 Rossi [address] [facility] 2022-04-05 Outpatient [place], STITZELLC STLMLC [id number] Common 10:41:01 Rossi [facility] 2022-05-10 2022-05-10 OFFICE STLMLC STLMLC [id number] Co mmon 00:00:00 00:00:00 VISIT EST Spir it PT LEVEL 3 [facility] 2022-04-05 2022-04-05 OFFICE STLMLC STLMLC [id number] Co mmon 00:00:00 00:00:00 VISIT NEW Spir it PT LEVEL 4 - [facility] 2021-09-01 2021-09-01 Laboratory Only, Adc Pob2 Test [facility] 1.2 .840.114 [id number] Univers 11:00:00 11:15:00 Only Gibran Walters 350.1.13 .10 ity [facility] [id number] [phone] Mt dic[address] 2021-09-01 2021-09-01 Outpatient R SELENA [facility] [id number] Univers 11:00:00 11:05:11 GIBRAN whitman [facility] 2021-09-01 2021-09-01 Telephone ONESIMO Tineo [id number] Univers 00:00:00 00:00:00 Izabela DAWSON [id number] it y [facility] 4...2.686 Isaías as [phone] [address] 2021-08-30 2021-08-30 Outpatient R SELENA [facility] [id number] Univers 10:30:00 10:41:00 GIBRAN whitman [facility] 2021-08-30 2021-08-30 Laboratory Only, Adc Pob2 Test [facility] 1.2 .840.114 [id number] Univers 10:30:00 10:41:00 Only Gibran Walters [id number] .10 ity [facility] [id number] [phone] Mt dic[address] 2021-08-30 2021-08-30 Letter ONESIMO Garcia 1.2.840.114 [id number] Univers 00:00:00 00:00:00 (Out) Elicia DAWSON [id number] it y [facility] 4.2.7.2.686 Isaías as [phone] [address] 2021-02-17 2021-02-17 Orders Doctor ECHOLS 1.2.840.114 [id number] Univers 00:00:00 00:00:00 Only Unassigned, EUNICE [id number] ity of [place] [facility] 4.2.7.2.686 Isaías as [id number] [address] 2021-02-09 2021-02-09 Tony Jarett [facility] 1.2.840.114 [id number] Univers 00:00:00 00:00:00 Annmarie Ross [facility] [id number] ity of [place] [id number] [address] 2020-03-02 2020-03-02 Orders Doctor ONESIMO 1.2.840.114 [id number] 00:00:00 00:00:00 Only Unassigned, EUNICE [id number] [place] [facility] 4.2.7.2.686 [id number] [facility] 2020-03-02 2020-03-02 Orders Doctor ONESIMO 1.2.840.114 [id number] Univers 00:00:00 00:00:00 Only Unassigned, EUNICE [id number] ity of [place] [facility] 4.2.7.2.686 Isaías as [id number] [address] 2020-02-24 2020-02-24 [facility] [id number] Univers 10:30:00 10:30:00 ANNMARIE garcia f [facility] 2020-02-13 2020-02-13 Ancillary Swallows, UNIVERSIT 1.2.840.114 [id number] 11:00:12 11:30:12 Visit Gal Speech Y [id number] Modified NATIONAL 4.2.7.2.686 [facility] [id number] DG. 145 2020-02-13 2020-02-13 Ancillary Swallows, Gal Speech Modifie d Barium UNIVERSIT 1.2.840.114 [id number] Univers 11:00:12 11:30:12 Visit Yee [place] 350.1.13.10 ity of NATIONAL 4.2.7.2.686 Isaías as BANK [phone] [facility] [place] 2020-02-13 2020-02-13 [facility] [id number] Univers 09:00:00 09:00:00 YEE j carlos of [facility] 2020-01-27 2020-01-27 Office ANABELLA Denson [id number] 10:43:44 11:39:23 Visit [facility] [id number] CLINICS 4.2.7.2.686 [phone] [facility] 2020-01-27 2020-01-27 Office ANABELLA Denson [id number] [facility] 10:43:44 11:39:23 Visit [facility] Tame [id number] ity of CL[place]ICS 4[place].2.[place] [phone] [place] [address] Branch 2020-01-27 2020-01-27 Outpatient R JARETT [facility] [id number] Univers 10:30:00 10:30:00 ANNMARIE whitman o f [facility] 2020-01-27 2020-01-27 Orders Doctor ONESIMO 1.2.840.114 [id number] [facility] 00:00:00 00:00:00 Only Unassigned, EUNICE [id number] ity of [place] [facility] 4.2.7.2.686 Isaías as [phone] [facility] 009 Branch Results This patient has no known results.
[2022-10-11] MEDS ORDERED: HYDROCODONE/APAP 5/325 MG TAB ONE (17:05)
[2022-10-11] MEDS ORDERED: DIAZEPAM 5 MG TABLET ONE (17:05)
--- NOTE | 2022-10-11 17:29 | RAD REPORT ---
EXAM DESCRIPTION: RAD - Chest Single View - 10/11/2022 5:10 pm CLINICAL HISTORY: right sided chest pain Chest pain. COMPARISON: Chest Single View dated 01/15/2018; Chest Pa And Lat (2 Views) dated 05/01/2017; Chest Pa And Lat (2 Views) dated 09/12/2016; Chest Single View dated 11/18/2015 FINDINGS: Portable technique limits examination quality. Mild interstitial pulmonary edema. The heart is upper limit normal in size. No displaced fractures. IMPRESSION: Mild CHF.
--- NOTE | 2022-10-28 14:20 | EDPHYS ---
Physician Documentation [facility] Name: Mi Ortiz Age: 57 yrs Sex: Female : 1965 Arrival Date: 10/11/2022 Time: 16:39 Bed DX3 Private MD: LEATHA Physician Marciano Olivas HPI: 10/11 16:53 This 57 yrs old Female presents to ER via Ambulatory with complaints of Neck [facility] Pain, <24hrs Old, right pectoral pain. 16:53 Is a 57-year-old female with history of hypertension the presents emerged department jm with complaints of right-sided neck pain, right pectoral pain which occurred after performing heavy lifting about a week ago. Patient was prescribed medications by PCP that have not relieved her pain. Denies any shortness of breath, fever, . Historical: - Allergies: 16:56 amoxicillin-pot clavulanate; iw - Home Meds: 16:56 lisinopril 10 mg Oral tab 1 tab once daily [Active]; iw - PMHx: 16:56 Hypertensive disorder; iw - Immunization history:: Adult Immunizations up to date, Client reports receiving the 2nd dose of the Covid vaccine. - Social history:: Smoking status: Patient denies any tobacco usage or history of. Patient/guardian denies using alcohol. ROS: 16:53 Constitutional: Negative for fever, chills, and weight loss. jmm 16:53 Neck: Positive for pain with movement. 16:53 Cardiovascular: Positive for chest pain. 16:53 All other systems are negative. Exam: 16:53 Constitutional: This is a well developed, well nourished patient who is awake, alert, jmm and in no acute distress. Head/Face: atraumatic. Eyes: EOMI, no conjunctival erythema appreciated ENT: Moist Mucus Membranes 16:53 Respiratory: Normal respirations, no respiratory distress appreciated Abdomen/GI: Non distended Back: Normal ROM Skin: General appearance color normal MS/ Extremity: Moves all extremities, no obvious deformities appreciated, no edema noted to the lower extremities Neuro: Awake and alert Psych: Behavior is normal, Mood is normal, Patient is cooperative and pleasant 16:53 Neck: Right-sided pain on palpation, full range of motion appreciated, no midline tenderness. 16:53 Chest/axilla: Inspection: normal, Palpation: tenderness, that is moderate, of the right supraclavicular area, right clavicle and anterior aspect of right upper chest. 16:53 Cardiovascular: Rate: normal, Rhythm: regular. Vital Signs: 16:55 BP 139 / 92; Pulse 66; Resp 18; Temp 97.8(O); Pulse Ox 98% on R/A; Weight 74.84 kg; iw Height 5 ft. 3 in. ; Pain 10/10; 20:03 BP 128 / 88; Pulse 76; Resp 17; Pulse Ox 99% ; mb9 16:55 Body Mass Index 29.23 (74.84 kg, 160.02 cm) iw 16:55 Pain Scale: Adult iw MDM: 16:53 Patient medically screened. [facility] 19:05 Differential diagnosis: Neck strain, chest wall strain. Data reviewed: vital signs, [facility] nurses notes, radiologic studies. I considered the following discharge prescriptions or medication management in the emergency department Medications were administered in the Emergency Department. See MAR. Independent interpretation of the following test(s) in the Emergency Department X-Ray: My interpretation is No infiltrate appreciated. Counseling: I had a detailed discussion with the patient and/or guardian regarding: the historical points, exam findings, and any diagnostic results supporting the discharge/admit diagnosis, radiology results, the need for outpatient follow up, to return to the emergency department if symptoms worsen or persist or if there are any questions or concerns that arise at home. ED course: Patient mildly relieved in the ED. Chest x-ray did not reveal an acute intrathoracic process. Patient vies follow-up PCP and otherwise given strict return precautions. Patient understood agrees to plan of care.. 10/11 16:56 Order name: Chest Single View XRAY [facility] 10/11 17:30 Order name: RAD; Complete Time: 17:38 EDMS Administered Medications: 17:02 Drug: Diazepam PO 5 mg Route: PO; iw 17:02 Drug: HYDROcodone-acetaminophen PO 5 mg-325 mg 1 tabs Route: PO; iw Disposition Summary: 10/11/22 19:07 Discharge Ordered Location: Home [facility] Condition: Stable [facility] Diagnosis - Chest wall strain [facility] Followup: [facility] - With: Private Physician - When: 2 - 3 days - Reason: Recheck today's complaints, Continuance of care, Re-evaluation by your physician Discharge Instructions: - Discharge Summary Sheet [facility] - Chest Wall Pain [facility] Forms: - Work release form jmm - Medication Reconciliation Form jm - Thank You Letter aletha - Antibiotic Education mala - Prescription Opioid Use [facility] Prescriptions: - Zanaflex 4 mg Oral Tablet - take 1 tablet by ORAL route every 8 hours As needed; 20 tablet; Refills: 0, [facility] Product Selection Permitted - Diclofenac Sodium 75 mg Oral Tablet Sustained Release - take 1 tablet by ORAL route 2 times per day; 30 tablet; Refills: 0, Product [facility] Selection Permitted Signatures: Dispatcher [employer] Adan Hodges PA PA jmm Williams, Irene, RN RN iw
--- NOTE | 2022-10-28 14:20 | ER ---
Nurse's Notes [facility] Name: Mi Ortiz Age: 57 yrs Sex: Female : 1965 Arrival Date: 10/11/2022 Time: 16:39 Bed DX3 Private MD: Diagnosis: Chest wall strain Presentation: 10/11 16:55 Chief complaint: Patient states: Injured right shoulder last week. Coronavirus screen: iw At this time, the client does not indicate any symptoms associated with coronavirus-19. Ebola Screen: No symptoms or risks identified at this time. Initial Sepsis Screen: Does the patient meet any 2 criteria? No. Patient's initial sepsis screen is negative. Does the patient have a suspected source of infection? No. Patient's initial sepsis screen is negative. Risk Assessment: Do you want to hurt yourself or someone else? Patient reports no desire to harm self or others. Onset of symptoms was October 11, 2022. 16:55 Method Of Arrival: Ambulatory iw 16:55 Acuity: CARMEN 4 iw Triage Assessment: 16:56 General: Appears in no apparent distress. comfortable, Behavior is calm, cooperative, iw appropriate for age. Pain: Complains of pain in right supraclavicular area, right clavicle and neck Pain does not radiate. Pain currently is 9 out of 10 on a pain scale. Quality of pain is described as throbbing. EENT: No signs and/or symptoms were reported regarding the EENT system. Neuro: Level of Consciousness is awake, alert, obeys commands, Oriented to person, place, time, situation. Cardiovascular: Capillary refill < 3 seconds Patient's skin is warm and dry. Respiratory: Airway is patent Respiratory effort is even, unlabored. GI: Abdomen is flat, non-distended. : No signs and/or symptoms were reported regarding the genitourinary system. Derm: No signs and/or symptoms reported regarding the dermatologic system. Musculoskeletal: No signs and/or symptoms reported regarding the musculoskeletal system. Historical: - Allergies: 16:56 amoxicillin-pot clavulanate; iw - Home Meds: 16:56 lisinopril 10 mg Oral tab 1 tab once daily [Active]; iw - PMHx: 16:56 Hypertensive disorder; iw - Immunization history:: Adult Immunizations up to date, Client reports receiving the 2nd dose of the Covid vaccine. - Social history:: Smoking status: Patient denies any tobacco usage or history of. Patient/guardian denies using alcohol. Assessment: 20:04 Reassessment: No changes from previously documented assessment. Patient and/or family mb9 updated on plan of care and expected duration. Pain level reassessed. Patient is alert, oriented x 3, equal unlabored respirations, skin warm/dry/pink. Patient denies pain at this time. Patient states feeling better. Derm: Skin is pink, warm \T\ dry. Musculoskeletal: Range of motion: intact in all extremities. Vital Signs: 16:55 BP 139 / 92; Pulse 66; Resp 18; Temp 97.8(O); Pulse Ox 98% on R/A; Weight 74.84 kg; iw Height 5 ft. 3 in. ; Pain 10/10; 20:03 BP 128 / 88; Pulse 76; Resp 17; Pulse Ox 99% ; mb9 16:55 Body Mass Index 29.23 (74.84 kg, 160.02 cm) iw 16:55 Pain Scale: Adult iw ED Course: 16:39 Patient arrived in ED. am2 16:43 Adan Ordonez PA is PHCP. [facility] 16:43 Marciano Olivas MD is Attending Physician. [facility] 16:56 Triage completed. iw 16:56 Arm band placed on right wrist. iw 20:04 No provider procedures requiring assistance completed. Patient did not have IV access mb9 during this emergency room visit. Administered Medications: 17:02 Drug: Diazepam PO 5 mg Route: PO; iw 17:02 Drug: HYDROcodone-acetaminophen PO 5 mg-325 mg 1 tabs Route: PO; iw Outcome: 19:07 Discharge ordered by . [facility] 19:57 Patient left the ED. ll3 20:04 Discharged to home ambulatory. mb9 20:04 Condition: stable 20:04 Discharge instructions given to patient, Instructed on discharge instructions, follow up and referral plans. Demonstrated understanding of instructions, follow-up care, medications, Prescriptions given X 2. Signatures: Adan Ordonez PA PA jmm Williams, Irene, RN RN iw Lolis Sánchez am2 Padmini Thomson RN RN ll3 Wendy Michael RN RN mb9
== END 2022-10-11 19:57 | disposition home or self-care (01) ==
LOC: ER 16:38
DX: S29.011A Strain of muscle and tendon of front wall of thorax, initial encounter (principal); I10 Essential (primary) hypertension; Z88.1 Allergy status to other antibiotic agents
CPT/HCPCS: 71045; 99283

== ENCOUNTER 2022-12-08 13:22 | Emergency (ER) | payer BC ==
--- OUTSIDE RECORDS SUMMARY | 2022-12-08 13:26 | XMS REPORT | Continuity of Care Document ---
:1965 Author Organization [facility] t Address [address] [place] [address] [place] [id number] Care Team Providers Name Role Phone PCP, PATIENT DOES NOT HAVE A Primary Care Physician Unavaila Rossi Carter Attending Clinician Unavailable TUNDE RDZ Attending Clinician Unavailable Tunde Rivas Attending Clinician Kodak Nicholson MD Attending Clinician Doctor Unassigned, [place] Attending Clinician Unavailable Only, Adc Pob2 Test Attending Clinician Unavailable Gibran Walters DO Attending Clinician GIBRAN WALTERS Attending Clinician Unavailable Izabela Tineo RN Attending Clinician Unavailable Elicia Garcia RN Attending Clinician Unavailable Annmarie Aparicio Attending Clinician [...] 1-10 it y of adult adult 00:00: [place] 00 Medical Branch BMI BMI Disease Active 2016-08 Univers 29.0-29.9, 29.0-29.9, 1-10 it y of adult adult 00:00: [place] 00 Medical Branch Prolapse Prolapse Disease Active 2016-08 Unive rs of female of female 1-10 ity of bladder, bladder, 00:00: [place] acquired acquired 00 Medica l Branch BMI BMI Disease Active 2016-08 Univers 29.0-29.9, 29.0-29.9, 1-10 it y of adult adult 00:00: [place] 00 Medical Branch Prolapse Prolapse Disease Active Unive rs of of 8-09 ity of anterior anterior 00:00: [place] vaginal vaginal 00 Medical wall wall Branch Obesity Obesity Disease Active 2015-08 Univers 0-06 ity of 00:00: [place] [facility] Encounter Encounter Disease Active 2015-08 Uni vers [...] on, benign on, benign [place] [facility] Contracept Contracept Disease Active 2014-08 U oswaldo márquez yulisa 1-13 ity of management management [place] [facility] Acute Acute Disease Active 2014-08 Univers cystitis cystitis 1-11 ity of without without 00:00: [place] hematuria hematuria 00 [facility] [id number] Primary Problem Comm on osteoarthr Spirit itis of - [facility] right knee [facility] Allergies, Adverse Reactions, Alerts Allergy Allergy Status Severity Reaction(s) Onset Inactive Treating Comm ents Source Name Type Date Date Clinician NO KNOWN Drug Active Univers ALLERGIE Class ity of S [facility] Social History Social Habit Start Date Stop Date Quantity Comments Source Sex Assigned At Common Sp anamika - [facility] History of [facility] - Tobacco Use [facility] Exposure to 2022-11-28 2022-12-08 Not sure University SARS-CoV-2 00:00:00 08:18:00 [facility] (event) Branch Alcohol intake 2022-12-08 2022-12-08 0 /d University 00:00:00 00:00:00 [facility] Tobacco use and 2022-11-08 2022-11-08 Smokeless tobacco Un iversity of exposure 00:00:00 00:00:00 non-user [facility] Smoking Status Start Date Stop Date Source Never smoked tobacco [facility] Medications Ordered Filled Start Stop Current Ordering Indication Dosage Frequency Signature Comments Components Source Medication Medication Date Date Medication? Clinician (SIG) Name Name diclofenac 2022- Yes [id number] 75mg Take 1 Univers 75 mg EC 4-04 05-05 tablet by ity o f tablet 00:00: 04:59 mouth 2 [place] 00 :00 (two) Medical times North daily with meals for 30 days. diclofenac 2022- Yes [id number] 75mg Take 1 Univers 75 mg EC 4-04 05-05 tablet by ity o f tablet 00:00: 04:59 mouth 2 [place] 00 :00 (two) Medical times North daily with meals for 30 days. diclofenac 2022- Yes [id number] 75mg Take 1 Univers 75 mg EC 4-04 05-05 tablet by ity o f tablet 00:00: 04:59 mouth 2 [place] 00 :00 (two) Medical times North daily with meals for 30 days. diclofenac 2022- Yes [id number] 75mg Take 1 Univers 75 mg EC 4-04 05-05 tablet by ity o f tablet 00:00: 04:59 mouth 2 [place] 00 :00 (two) Medical times North daily with meals for 30 days. diclofenac 2022- Yes [id number] 75mg Take 1 Univers 75 mg EC 4-04 05-05 tablet by ity o f tablet 00:00: 04:59 mouth 2 [place] 00 :00 (two) Medical times North daily with meals for 30 days. diclofenac 2022- Yes [id number] 75mg Take 1 Univers 75 mg EC 4-04 05-05 tablet by ity o f tablet 00:00: 04:59 mouth 2 [place] 00 :00 (two) Medical times Branch daily with meals for 30 days. diclofenac 0 2022- Yes [id number] 75mg Take 1 Univers 75 mg EC 4-04 05-05 tablet by ity o f tablet 00:00: 04:59 mouth 2 [place] 00 :00 (two) Medical times Branch daily with meals for 30 days. diclofenac 0 2022- Yes [id number] 75mg Take 1 Univers 75 mg EC 4-04 05-05 tablet by ity o f tablet 00:00: 04:59 mouth 2 [place] 00 :00 (two) Medical times Branch daily with meals for 30 days. diclofenac 0 2022- Yes [id number] 75mg Take 1 Univers 75 mg EC 4-04 05-05 tablet by ity o f tablet 00:00: 04:59 mouth 2 [place] 00 :00 (two) Medical times Branch daily with meals for 30 days. diclofenac 2022- Yes [id number] 75mg Take 1 Univers 75 mg EC 4- 05-05 tablet by ity o f tablet 00:00: 04:59 mouth 2 [place] 00 :00 (two) Medical times Branch daily with meals for 30 days. Bupivicaine Bupivicaine 2021-0 No 5mg [facility] [place] 8-30 Spirit 00:00: - [facility] Kenalog Kenalog 2021-0 No 40mg Common (Triamcinol (Triamcinol 8-30 S pirit one) one) 00:00: - [facility] Bupivicaine Bupivicaine 2-0 No 5mg [facility] [place] 8-30 Spirit 00:00: - [facility] 00 [facility] Kenalog Kenalog 2-0 No 40mg Common (Triamcinol (Triamcinol 8-30 S pirit one) one) 00:00: - [facility] 00 [facility] Bupivicaine Bupivicaine 2-0 No 5mg [facility] [place] 8-30 Spirit 00:00: - [facility] Kenalog Kenalog 2-0 No 40mg Common (Triamcinol (Triamcinol 8-30 S pirit one) one) 00:00: - [facility] 00 [facility] pantoprazol 2020-0 Yes [id number] 40mg Take 1 Univers e 40 mg EC 6-22 tablet by ity of tablet 00:00: mouth [place] 00 daily. Medical Branch pantoprazol 2020-0 Yes [id number] 40mg Take 1 Univers e 40 mg EC 6-22 tablet by ity of tablet 00:00: mouth [place] 00 daily. Medical Branch pantoprazol 2020-0 Yes [id number] 40mg Take 1 Univers e 40 mg EC 6-22 tablet by ity of tablet 00:00: mouth [place] 00 daily. Medical Branch pantoprazol 2020-0 Yes [id number] 40mg Take 1 Univers e 40 mg EC 6-22 tablet by ity of tablet 00:00: mouth [place] 00 daily. Medical Branch pantoprazol 2020-0 Yes [id number] 40mg Take 1 Univers e 40 mg EC 6-22 tablet by ity of tablet 00:00: mouth [place] 00 daily. Medical Branch pantoprazol 2020-0 Yes [id number] 40mg Take 1 Univers e 40 mg EC 6-22 tablet by ity of tablet 00:00: mouth [place] 00 daily. Medical Branch pantoprazol 2020-0 Yes [id number] 40mg Take 1 Univers e 40 mg EC 6-22 tablet by ity of tablet 00:00: mouth [place] 00 daily. Medical Branch pantoprazol 2020-0 Yes [id number] 40mg Take 1 Univers e 40 mg EC 6-22 tablet by ity of tablet 00:00: mouth [place] 00 daily. Medical Branch pantoprazol 2020-0 Yes [id number] 40mg Take 1 Univers e 40 mg EC 6-22 tablet by ity of tablet 00:00: mouth [place] 00 daily. Medical Branch pantoprazol 2020-0 Yes [id number] 40mg Take 1 Univers e 40 mg EC 6-22 tablet by ity of tablet 00:00: mouth [place] 00 daily. Medical Branch pantoprazol 2020-0 Yes [id number] 40mg Take 1 Univers e 40 mg EC 6-22 tablet by ity of tablet 00:00: mouth [place] 00 daily. Medical Branch pantoprazol 2020-0 Yes [id number] 40mg Take 1 Univers e 40 mg EC 6-22 tablet by ity of tablet 00:00: mouth [place] 00 daily. Medical Branch pantoprazol 2020-0 Yes [id number] 40mg Take 1 Univers e 40 mg EC 6-22 tablet by ity of tablet 00:00: mouth [place] 00 daily. Medical Branch pantoprazol 2019-0 Yes [id number] 40mg Take 1 Univers e 40 mg EC 6-22 tablet by ity of tablet 00:00: mouth [place] 00 daily. Medical Branch pantoprazol 2019-0 Yes [id number] 40mg Take 1 Univers e 40 mg EC 6-22 tablet by ity of tablet 00:00: mouth [place] 00 daily. Medical Branch pantoprazol 2019-0 Yes [id number] 40mg Take 1 Univers e 40 mg EC 6-22 tablet by ity of tablet 00:00: mouth [place] 00 daily. Medical Branch pantoprazol 2019-0 Yes [id number] 40mg Take 1 Univers e 40 mg EC 6-22 tablet by ity of tablet 00:00: mouth [place] 00 daily. Medical Branch pantoprazol 2019-0 Yes [id number] 40mg Take 1 Univers e 40 mg EC 6-22 tablet by ity of tablet 00:00: mouth [place] 00 daily. Medical Branch pantoprazol 2019-0 Yes [id number] 40mg Take 1 Univers e 40 mg EC 6-22 tablet by ity of tablet 00:00: mouth [place] 00 daily. Medical Branch pantoprazol 2019-0 Yes [id number] 40mg Take 1 Univers e 40 mg EC 6-22 tablet by ity of tablet 00:00: mouth [place] 00 daily. Medical Branch pantoprazol 2019-0 Yes [id number] 40mg Take 1 Univers e 40 mg EC 6-22 tablet by ity of tablet 00:00: mouth [place] 00 daily. Medical Branch pantoprazol 2019-0 Yes [id number] 40mg Take 1 Univers e 40 mg EC 6-22 tablet by ity of tablet 00:00: mouth [place] 00 daily. Medical Branch traMADOL 2018-0 Yes [id number] 50mg Take 1 Uni vers (ULTRAM) 50 3-10 tablet by ity of mg tablet 00:00: mouth [place] 00 every 6 Medical (six) Branch hours as needed for Pain (scale 7-10). clindamycin 2018- Yes [id number] 300mg Take 1 Univers 300 mg 3-10 capsule by ity of capsule 00:00: mouth 3 [place] 00 (three) Medical times Branch daily. traMADOL 2018-0 Yes [id number] 50mg Take 1 Uni vers (ULTRAM) 50 3-10 tablet by ity of mg tablet 00:00: mouth [place] 00 every 6 Medical (six) Branch hours as needed for Pain (scale 7-10). clindamycin 2019-0 Yes [id number] 300mg Take 1 Univers 300 mg 3-10 capsule by ity of capsule 00:00: mouth 3 [place] 00 (three) Medical times Branch daily. traMADOL 2019-0 Yes [id number] 50mg Take 1 Uni vers (ULTRAM) 50 3-10 tablet by ity of mg tablet 00:00: mouth [place] 00 every 6 Medical (six) Branch hours as needed for Pain (scale 7-10). clindamycin 2019-0 Yes [id number] 300mg Take 1 Univers 300 mg 3-10 capsule by ity of capsule 00:00: mouth 3 00 (three) Medical times Branch daily. traMADOL 2019-0 Yes [id number] 50mg Take 1 Uni vers (ULTRAM) 50 3-10 tablet by ity of mg tablet 00:00: mouth [place] 00 every 6 Medical (six) Branch hours as needed for Pain (scale 7-10). clindamycin 2019-0 Yes [id number] 300mg Take 1 Univers 300 mg 3-10 capsule by ity of capsule 00:00: mouth 3 00 (three) Medical times Branch daily. traMADOL 2019-0 Yes [id number] 50mg Take 1 Uni vers (ULTRAM) 50 3-10 tablet by ity of mg tablet 00:00: mouth [place] 00 every 6 Medical (six) Branch hours as needed for Pain (scale 7-10). clindamycin 2019-0 Yes [id number] 300mg Take 1 Univers 300 mg 3-10 capsule by ity of capsule 00:00: mouth 3 00 (three) Medical times Branch daily. traMADOL 2019-0 Yes [id number] 50mg Take 1 Uni vers (ULTRAM) 50 3-10 tablet by ity of mg tablet 00:00: mouth [place] 00 every 6 Medical (six) Branch hours as needed for Pain (scale 7-10). clindamycin 2019-0 Yes [id number] 300mg Take 1 Univers 300 mg 3-10 capsule by ity of capsule 00:00: mouth 3 [place] 00 (three) Medical times Branch daily. traMADOL 2019-0 Yes [id number] 50mg Take 1 Uni vers (ULTRAM) 50 3-10 tablet by ity of mg tablet 00:00: mouth [place] 00 every 6 Medical (six) Branch hours as needed for Pain (scale 7-10). clindamycin 2019-0 Yes [id number] 300mg Take 1 Univers 300 mg 3-10 capsule by ity of capsule 00:00: mouth 3 (three) Medical times Branch daily. traMADOL 2019-0 Yes [id number] 50mg Take 1 Uni vers (ULTRAM) 50 3-10 tablet by ity of mg tablet 00:00: mouth [place] 00 every 6 Medical (six) Branch hours as needed for Pain (scale 7-10). clindamycin 2019-0 Yes [id number] 300mg Take 1 Univers 300 mg 3-10 capsule by ity of capsule 00:00: mouth 00 (three) Medical times Branch daily. traMADOL 2019-0 Yes [id number] 50mg Take 1 Uni vers (ULTRAM) 50 3-10 tablet by ity of mg tablet 00:00: mouth [place] 00 every 6 Medical (six) Branch hours as needed for Pain (scale 7-10). traMADOL 2019-0 Yes [id number] 50mg Take 1 Uni vers (ULTRAM) 50 3-10 tablet by ity of mg tablet 00:00: mouth [place] 00 every 6 Medical (six) Branch hours as needed for Pain (scale 7-10). clindamycin 2019-0 Yes [id number] 300mg Take 1 Univers 300 mg 3-10 capsule by ity of capsule 00:00: mouth (three) Medical times Branch daily. clindamycin 2019-0 Yes [id number] 300mg Take 1 Univers 300 mg 3-10 capsule by ity of capsule 00:00: mouth (three) Medical times Branch daily. traMADOL 2019-0 Yes [id number] 50mg Take 1 Uni vers (ULTRAM) 50 3-10 tablet by ity of mg tablet 00:00: mouth [place] 00 every 6 Medical (six) Branch hours as needed for Pain (scale 7-10). clindamycin 2019-0 Yes [id number] 300mg Take 1 Univers 300 mg 3-10 capsule by ity of capsule 00:00: mouth 3 (three) Medical times Branch daily. traMADOL 2019-0 Yes [id number] 50mg Take 1 Uni vers (ULTRAM) 50 3-10 tablet by ity of mg tablet 00:00: mouth [place] 00 every 6 Medical (six) Branch hours as needed for Pain (scale 7-10). clindamycin 2019-0 Yes [id number] 300mg Take 1 Univers 300 mg 3-10 capsule by ity of capsule 00:00: mouth (three) Medical times Branch daily. traMADOL 2019-0 Yes [id number] 50mg Take 1 Uni vers (ULTRAM) 50 3-10 tablet by ity of mg tablet 00:00: mouth [place] 00 every 6 Medical (six) Branch hours as needed for Pain (scale 7-10). clindamycin 2019-0 Yes [id number] 300mg Take 1 Univers 300 mg 3-10 capsule by ity of capsule 00:00: mouth 00 (three) Medical times Branch daily. traMADOL 2019-0 Yes [id number] 50mg Take 1 Uni vers (ULTRAM) 50 3-10 tablet by ity of mg tablet 00:00: mouth [place] 00 every 6 Medical (six) Branch hours as needed for Pain (scale 7-10). clindamycin 2019-0 Yes [id number] 300mg Take 1 Univers 300 mg 3-10 capsule by ity of capsule 00:00: mouth (three) Medical times Branch daily. traMADOL 2019-0 Yes [id number] 50mg Take 1 Uni vers (ULTRAM) 50 3-10 tablet by ity of mg tablet 00:00: mouth [place] 00 every 6 Medical (six) Branch hours as needed for Pain (scale 7-10). clindamycin 2019-0 Yes [id number] 300mg Take 1 Univers 300 mg 3-10 capsule by ity of capsule 00:00: mouth (three) Medical times Branch daily. traMADOL 2019-0 Yes [id number] 50mg Take 1 Uni vers (ULTRAM) 50 3-10 tablet by ity of mg tablet 00:00: mouth [place] 00 every 6 Medical (six) Branch hours as needed for Pain (scale 7-10). clindamycin 2019-0 Yes [id number] 300mg Take 1 Univers 300 mg 3-10 capsule by ity of capsule 00:00: mouth 3 (three) Medical times Branch daily. traMADOL 2019-0 Yes [id number] 50mg Take 1 Uni vers (ULTRAM) 50 3-10 tablet by ity of mg tablet 00:00: mouth [place] 00 every 6 Medical (six) Branch hours as needed for Pain (scale 7-10). clindamycin 2019-0 Yes [id number] 300mg Take 1 Univers 300 mg 3-10 capsule by ity of capsule 00:00: mouth 3 00 (three) Medical times Branch daily. traMADOL 2019-0 Yes [id number] 50mg Take 1 Uni vers (ULTRAM) 50 3-10 tablet by ity of mg tablet 00:00: mouth [place] 00 every 6 Medical (six) Branch hours as needed for Pain (scale 7-10). clindamycin 2019-0 Yes [id number] 300mg Take 1 Univers 300 mg 3-10 capsule by ity of capsule 00:00: mouth 3 00 (three) Medical times Branch daily. traMADOL 2019-0 Yes [id number] 50mg Take 1 Uni vers (ULTRAM) 50 3-10 tablet by ity of mg tablet 00:00: mouth [place] 00 every 6 Medical (six) Branch hours as needed for Pain (scale 7-10). clindamycin 2019-0 Yes [id number] 300mg Take 1 Univers 300 mg 3-10 capsule by ity of capsule 00:00: mouth (three) Medical times Branch daily. traMADOL 2019-0 Yes [id number] 50mg Take 1 Uni vers (ULTRAM) 50 3-10 tablet by ity of mg tablet 00:00: mouth [place] 00 every 6 Medical (six) Branch hours as needed for Pain (scale 7-10). clindamycin 2019-0 Yes [id number] 300mg Take 1 Univers 300 mg 3-10 capsule by ity of capsule 00:00: mouth (three) Medical times Branch daily. traMADOL 2019-0 Yes [id number] 50mg Take 1 Uni vers (ULTRAM) 50 3-10 tablet by ity of mg tablet 00:00: mouth [place] 00 every 6 Medical (six) Branch hours as needed for Pain (scale 7-10). clindamycin 2019-0 Yes [id number] 300mg Take 1 Univers 300 mg 3-10 capsule by ity of capsule 00:00: mouth 3 00 (three) Medical times Branch daily. traMADOL 2019-0 Yes [id number] 50mg Take 1 Uni vers (ULTRAM) 50 3-10 tablet by ity of mg tablet 00:00: mouth [place] 00 every 6 Medical (six) Branch hours as needed for Pain (scale 7-10). clindamycin 2019-0 Yes [id number] 300mg Take 1 Univers 300 mg 3-10 capsule by ity of capsule 00:00: mouth 3 [place] 00 (three) Medical times Branch daily. traMADOL 2019-0 Yes [id number] 50mg Take 1 Uni vers (ULTRAM) 50 3-10 tablet by ity of mg tablet 00:00: mouth [place] 00 every 6 Medical (six) Branch hours as needed for Pain (scale 7-10). clindamycin 2019-0 Yes [id number] 300mg Take 1 Univers 300 mg 3-10 capsule by ity of capsule 00:00: mouth 3 [place] 00 (three) Medical times Branch daily. ibuprofen [...] 00 every 8 Medical (eight) Branch hours. ibuprofen 2018-0 Yes 800mg Take 1 Unive rs 800 mg 9-27 tablet by ity of tablet 00:00: mouth [place] 00 every 8 Medical (eight) Branch hours. diazePAM 2018-0 Yes 5mg Take 1 Univers (VALIUM) 5 9-27 tablet by ity of mg tablet 00:00: mouth 2 00 (two) Medical times Branch daily as needed for Muscle Spasms. diazePAM 2018-0 Yes 5mg Take 1 Univers [...] daily as needed for Muscle Spasms. hydroCHLORO 2016-08 Yes 25mg Take 1 Univ ers thiazide 25 1-07 tablet by ity of mg tablet 00:00: mouth [place] 00 every Medical morning. North hydroCHLORO 2016-08 Yes 25mg Take 1 Univ ers thiazide 25 1-07 tablet by ity of mg tablet 00:00: mouth [place] 00 every Medical morning. North hydroCHLORO 2016-08 Yes 25mg Take 1 Univ ers thiazide 25 1-07 tablet by ity of mg tablet 00:00: mouth [place] 00 every Medical morning. North hydroCHLORO 2016-08 Yes 25mg Take 1 Univ ers thiazide 25 1-07 tablet by ity of mg tablet 00:00: mouth [place] 00 every Medical morning. North hydroCHLORO 2016-08 Yes 25mg Take 1 Univ ers thiazide 25 1-07 tablet by ity of mg tablet 00:00: mouth [place] 00 every Medical morning. North hydroCHLORO 2016-08 Yes 25mg Take 1 Univ ers thiazide 25 1-07 tablet by ity of mg tablet 00:00: mouth [place] 00 every Medical morning. North hydroCHLORO 2016-08 Yes 25mg Take 1 Univ ers thiazide 25 1-07 tablet by ity of mg tablet 00:00: mouth [place] 00 every Medical morning. North hydroCHLORO 2016-08 Yes 25mg Take 1 Univ ers thiazide 25 1-07 tablet by ity of mg tablet 00:00: mouth [place] 00 every Medical morning. North hydroCHLORO 2016-08 Yes 25mg Take 1 Univ ers thiazide 25 1-07 tablet by ity of mg tablet 00:00: mouth [place] 00 every Medical morning. North hydroCHLORO 2016-08 Yes 25mg Take 1 Univ ers thiazide 25 1-07 tablet by ity of mg tablet 00:00: mouth [place] 00 every Medical morning. North hydroCHLORO 2016-08 Yes 25mg Take 1 Univ [...] Immunizations Ordered Filled Immunization Date Status Comments Sour e Immunization Name Name TDAP (ADACEL) 2015-02-04 Completed University of VACCINE 00:00:00 [place] [facility] TDAP (ADACEL) 2015-02-04 Completed University of VACCINE 00:00:00 [place] [facility] TDAP (ADACEL) 2015-02-04 Completed University of VACCINE 00:00:00 [place] [facility] TDAP (ADACEL) 2015-02-04 Completed University of VACCINE 00:00:00 [facility] Branch TDAP (ADACEL) 2015-02-04 Completed University of VACCINE 00:00:00 [facility] Branch TDAP (ADACEL) 2015-02-04 Completed University of VACCINE 00:00:00 [facility] Branch TDAP (ADACEL) 2015-02-04 Completed University of VACCINE 00:00:00 [facility] Branch TDAP (ADACEL) 2015-02-04 Completed University of VACCINE 00:00:00 [facility] Branch TDAP (ADACEL) 2015-02-04 Completed University of VACCINE 00:00:00 [facility] Branch TDAP (ADACEL) 2015-02-04 Completed University of VACCINE 00:00:00 [facility] Branch TDAP (ADACEL) 2015-02-04 Completed University of VACCINE 00:00:00 [facility] Branch TDAP (ADACEL) 2015-02-04 Completed University of VACCINE 00:00:00 [facility] Branch TDAP (ADACEL) 2015-02-04 Completed University of VACCINE 00:00:00 [facility] Branch TDAP (ADACEL) 2015-02-04 Completed University of VACCINE 00:00:00 [facility] Branch TDAP (ADACEL) 2015-02-04 Completed University of VACCINE 00:00:00 [place] [facility] TDAP (ADACEL) 2015-02-04 Completed University of VACCINE 00:00:00 [place] [facility] TDAP (ADACEL) 2015-02-04 Completed University of VACCINE 00:00:00 [facility] Branch TDAP (ADACEL) 2015-02-04 Completed University of VACCINE 00:00:00 [facility] Branch TDAP (ADACEL) 2015-02-04 Completed University of VACCINE 00:00:00 [facility] Branch TDAP (ADACEL) 2015-02-04 Completed University of VACCINE 00:00:00 [facility] TDAP (ADACEL) 2015-02-04 Completed University of VACCINE 00:00:00 [facility] TDAP (ADACEL) 2015-02-04 Completed University of VACCINE 00:00:00 [facility] TDAP (ADACEL) 2015-02-04 Completed University of VACCINE 00:00:00 [facility] Vital Signs Vital Name Observation Time Observation Value Comments Source Body height 2022-12-08 13:31:00 165.1 cm Universi ty [facility] Body weight 2022-12-08 13:31:00 75.297 kg Universi ty [facility] BMI 2022-12-08 13:31:00 27.62 kg/m2 Universi ty [facility] Systolic blood 2022-11-08 18:02:00 118 mm[Hg] Univer sity of pressure [facility] Diastolic blood 2022-11-08 18:02:00 77 mm[Hg] Unive rsity of [facility] Heart rate 2022-11-08 18:02:00 80 /min Universi ty [facility] Body height 2022-11-08 18:02:00 165.1 cm Universi ty [facility] Body weight 2022-11-08 18:02:00 75.479 kg Universi ty [facility] BMI 2022-11-08 18:02:00 27.69 [facility] height 2022-05-10 15:00:00 65 [in_i] Common S p[facility] weight 2022-05-10 15:00:00 159 [lb_av] Common S pirit - [facility] temperature 2022-05-10 15:00:00 98.1 [degF] Common S p[facility] bmi 2022-05-10 15:00:00 26.46 kg/m2 Common S pirit - [facility] blood pressure 2022-05-10 15:00:00 114 mm[Hg] [facility] - systolic [facility] blood pressure 2022-05-10 15:00:00 70 mm[Hg] [facility] - diastolic [facility] height 2022-04-05 10:30:00 65 [in_i] Common [facility] weight 2022-04-05 10:30:00 159 [lb_av] Common [facility] temperature 2022-04-05 10:30:00 97.6 [degF] [facility] bmi 2022-04-05 10:30:00 26.46 kg/m2 Common S pirit - [facility] blood pressure 2022-04-05 10:30:00 126 mm[Hg] [facility] - systolic [facility] blood pressure 2022-04-05 10:30:00 84 mm[Hg] [facility] - diastolic [facility] Systolic blood 2020-01-27 15:55:00 126 mm[Hg] Univer sity of [facility] Diastolic blood 2020-01-27 15:55:00 89 mm[Hg] Unive rsity of [facility] Heart rate 2020-01-27 15:55:00 83 /min Universi ty of [facility] Body temperature 2020-01-27 15:55:00 36.33 Rossi Univ ersity [facility] Body height 2020-01-27 15:55:00 165.1 cm Universi ty of [facility] Body weight 2020-01-27 15:55:00 87.907 kg Universi ty of [facility] BMI 2020-01-27 15:55:00 32.25 kg/m2 Universi ty [facility] Systolic blood 2020-01-27 15:55:00 126 mm[Hg] Univer sity of [facility] Diastolic blood 2020-01-27 15:55:00 89 mm[Hg] Unive rsity of [facility] Heart rate 2020-01-27 15:55:00 83 /min Universi ty of [facility] Body temperature 2020-01-27 15:55:00 36.33 [facility] Univ ersity [facility] Body height 2020-01-27 15:55:00 165.1 cm Universi ty of [facility] Body weight 2020-01-27 15:55:00 87.907 kg Universi ty [facility] BMI 2020-01-27 15:55:00 32.25 kg/m2 Universi ty [facility] Procedures Procedure Date / Time Performing Clinician Source Performed REFERRAL- 2022-11-02 05:01:00 [facility] Un[facility]igned, No [facility] Name Medical Branch WORKERS COMPENSATION 2022-10-14 06:01:00 Doctor Unassigned, No [facility] [place] Name Medical Branch EXTERNAL PROVIDER 2021-02-17 05:01:00 Doctor Unassigned, No [facility] [place] RECORDS Name Medical Branch EXTERNAL PROVIDER 2020-03-02 05:01:00 Doctor Unassigned, No [facility] Name Medical Branch ASSIGNMENT OF BENEFITS 2020-01-27 15:36:07 Doctor Unassigned, No [facility] Name Medical Branch Encounters Start End Encounter Admission Attending Care Care Encounter Source Date/Time Date/Time Type Type Clinicians Facility Department ID 2022-05-10 Outpatient YAEL [facility] [id number] Common 13:46:02 Rossi [id number] [facility] 2022-05-09 Outpatient YAEL Warner [facility] [id number] Common 11:56:01 Rossi [id number] [facility] 2022-04-12 Outpatient Timmy STCARA [facility] [id number] Common 09:34:01 Rossi [id number] [facility] 2022-04-05 Outpatient Timmy STCARA [facility] [id number] Common 10:41:01 Rossi [id number] [facility] 2022-12-08 2022-12-08 [facility] 1.2.840.114 [id number] Univers 08:45:00 09:00:00 Visit [facility] 350.1.13.10 it y [facility] 4.2.7.2.686 Isaías as MIREYA?BLEA [phone] [address] MEDICAL OFFICE BUILDING 2022-12-08 2022-12-08 Outpatient Maribell RDZ [facility] [id number] Univers 08:45:00 08:45:00 TUNDE whitman [facility] 2022-11-21 2022-11-21 Telephone [facility] 1.2.840.114 [id number] Univers 00:00:00 00:00:00 [employer] L HEALTH 350.1.13.10 it y of [place] 4.2.7.2.686 Isaías as MIREYA?BLEA [phone] Me annette ALCANTARA [address] [facility] OFFICE [facility] 2022-11-18 2022-11-18 Telephone [facility] [id number] Univers 00:00:00 00:00:00 Tunde S HEALTH 350.1.13.10 it y of [place] 4.2.7.2.686 Isaías as MIREYA?BLEA [phone] Ne annette ALCANTARA [address] [facility] OFFICE [facility] 2022-11-10 2022-11-10 Telephone [facility] [id number] Univers 00:00:00 00:00:00 Tunde S HEALTH 350.1.13.10 it y of [place] 4.2.7.2.686 Isaías as MIREYA?BLEA [phone] Ne annette ALCANTARA [address] [place] [address] 2022-11-08 2022-11-08 [facility] [id number] Univers 13:00:00 14:03:14 TUNDE ity of [facility] 2022-11-08 2022-11-08 Office [facility] 1.2.840.114 [id number] Univers 13:00:00 14:03:14 Visit [facility] HEALTH 350.1.13.10 it y of [place] 4.2.7.2.686 Isaías as MIREYA?BLEA [phone] Ne annette ALCANTARA [address] [place] [address] 2022-11-08 2022-11-08 Telephone [facility] [id number] Univers 00:00:00 00:00:00 Tunde S HEALTH 350.1.13.10 it y of [place] 4.2.7.2.686 Isaías as MIREYA?BLEA [id number] Ne annette ALCANTARA [address] [place] [address] 2022-11-02 2022-11-02 Orders Doctor ECHOLS 1.2.840.114 [id number] Univers 00:00:00 00:00:00 Only Unassigned, EUNICE 350.1.13.10 ity of [place] [facility] 4.2.7.2.686 Isaías as [phone] [facility] [address] 2022-10-14 2022-10-14 Orders Doctor ONESIMO 1.2.840.114 [id number] Univers 00:00:00 00:00:00 Only UnassEUNICE banks 350.1.13.10 ity of [facility] 4.2.7.2.686 Isaías as [id number] [facility] [address] 2022-05-10 2022-05-10 OFFICE STLMLC STLMLC [id number] Co mmon 00:00:00 00:00:00 VISIT EST Spir it PT LEVEL 3 - [facility] 2022-04-05 2022-04-05 OFFICE STLMLC STLMLC [id number] Co mmon 00:00:00 00:00:00 VISIT NEW Spir it PT LEVEL 4 - [facility] 2021-09-01 2021-09-01 Laboratory Only, Adc Pob2 Test [facility] 1.2 .840.114 [id number] Univers 11:00:00 11:15:00 Only Gibran Walters 350.1.13 .10 ity [facility] 4.2.7.2.[place] PROFESS[place] [phone] Ne dical [facility] [address] [facility] 2021-09-01 2021-09-01 Outpatient R SELENA [facility] [id number] Univers 11:00:00 11:05:11 GIBRAN whitman [facility] 2021-09-01 2021-09-01 Telephone ONESIMO Tineo [id number] Univers 00:00:00 00:00:00 Izabela DAWSON 350.1.13.10 it y of [facility] 4.2.7.2.686 Isaías as [phone] [facility] [address] 2021-08-30 2021-08-30 Outpatient R SELENA [facility] [id number] Univers 10:30:00 10:41:00 GIBRAN whitman [facility] 2021-08-30 2021-08-30 Laboratory Only, Adc Pob2 Test [facility] 1.2 .840.114 [id number] Univers 10:30:00 10:41:00 Only Gibran Walters 350.1.13 .10 ity of [place]2.7.2.[place] [phone] Ne dical [facility] [address] [facility] 2021-08-30 2021-08-30 Letter ONESIMO Garcia 1.2.840.114 [id number] Univers 00:00:00 00:00:00 (Out) Elicia Kolb EUNICE 350.1.13.10 it y of HOSPITAL 4.2.7.2.686 Isaías as [phone] [facility] [address] 2021-02-17 2021-02-17 Orders Doctor ONESIMO 1.2.840.114 [id number] Univers 00:00:00 00:00:00 Only Unassigned, EUNICE 350.1.13.10 ity of [place] [facility] 4.2.7.2.686 Isaías as [phone] [facility] [address] 2021-02-09 2021-02-09 JORDYN Liu 1.2.840.114 [id number] Univers 00:00:00 00:00:00 Annmarie E Y HEALTH 350.1.13.10 ity of [place].2.[place] [phone] [place] 353951 [place] 2020-03-02 2020-03-02 Orders Doctor ONESIMO 1.2.840.114 [id number] Univers 00:00:00 00:00:00 Only Unassigned, EUNICE 350.1.13.10 ity of [place] [facility] 4.2.7.2.686 Isaías as [phone] [address] 2020-03-02 2020-03-02 Orders Doctor ONESIMO 1.2.840.114 [id number] 00:00:00 00:00:00 Only Unassigned, EUNICE 350.1.13.10 [place] [facility] 4.2.7.2.686 [id number] [id number] 2020-02-24 2020-02-24 Outpatient R JARETT [facility] [id number] Univers 10:30:00 10:30:00 ANNMARIE lorenzanay o f [facility] 2020-02-13 2020-02-13 Ancillary Swallows, Gal Speech Modifie d Barium UNIVERSIT 1.2.840.114 [id number] Univers 11:00:12 11:30:12 Visit Yee [place] Y 350.1.13.10 ity of [place] 4.2.7.2.686 Isaías as [phone] [facility] [address] 2020-02-13 2020-02-13 Ancillary Swallows, UNIVERSIT 1.2.840.114 [id number] 11:00:12 11:30:12 Visit Gal Speech Y 350.1.13.10 Modified NATIONAL 4.2.7.2.686 Barium BANK [phone] DG. 145 2020-02-13 2020-02-13 [facility] [id number] Univers 09:00:00 09:00:00 YEE whitman [facility] 2020-01-27 2020-01-27 Office [facility] [id number] Univers 10:43:44 11:39:23 Visit Annmarie E Y HEALTH 350.1.13.10 ity of [facility] 4.2.7.2.[place] [phone] [address] 2020-01-27 2020-01-27 Office Jarett, UNIVERS [id number] 10:43:44 11:39:23 Visit Annmarie E Y HEALTH 350.1.13.10 [facility] 4.2.7.2.686 [id number] [facility] 2020-01-27 2020-01-27 [facility] [id number] Univers 10:30:00 10:30:00 ANNMARIE whitman o f [facility] 2020-01-27 2020-01-27 Orders Doctor ONESIMO 1.2.840.114 [id number] Univers 00:00:00 00:00:00 Only Unassigned, EUNICE 350.1.13.10 ity of [place] [facility] 4.2.7.2.686 Isaías as [phone] [place] [address] Branch Results This patient has no known results.
[2022-12-08] MEDS ORDERED: HYDROCODONE/APAP 7.5/325 MG TAB ONE (14:33)
--- NOTE | 2022-12-08 15:21 | RAD REPORT ---
EXAM DESCRIPTION: CT - Soft Tissue Neck W/Contr CLINICAL HISTORY: FEVER Neck pain fever COMPARISON: No comparisons TECHNIQUE All CT scans are performed using dose optimization technique as appropriate and may includ e automated exposure control or mA/KV adjustment according to patient size. FINDINGS: The right palatine tonsil is mildly enlarged. No peritonsillar abscess. No prevertebral ab scess. Small left thyroid nodule measuring 13 mm. Mild lower cervical degenerative changes. IMPRESSION: Mild enlargement of the right palatine tonsil. This could be inflammatory or infectious.
--- NOTE | 2022-12-08 15:26 | RAD REPORT ---
EXAM DESCRIPTION: US - Upper Ext Artery Uni Pietro - 12/08/2022 2:54 pm CLINICAL HISTORY: PAIN COMPARISON: Extremity Venous Uni Ltd dated 06/12/2020 FINDINGS: Left subclavian and left axillary artery were interrogated. No flow abnormality seen. IMPRESSION: Negative study.
[2022-12-08 15:41] LABS: Absolute Lymphocytes (CBC) 1.9 K/uL (0.7-4.9); Hematocrit 40.1 % (36.0-45.0); Lymphocytes % 28.9 % (15.3-44.8); MCV 84.8 fL (80-100); MPV 8.3 fL (7.6-11.3); Potassium 3.8 mEq/L (3.5-5.1); RBC Red Blood Cell Count 4.73 M/uL (3.86-4.86)
--- NOTE | 2022-12-08 16:09 | EDPHYS ---
Physician Documentation [facility] Name: Mi Ortiz Age: 57 yrs Sex: Female : 1965 Arrival Date: 12/08/2022 Time: 13:22 Bed 9 Private MD: ED Physician Colt Gusman HPI: 12/08 17:01 This 57 yrs old Female presents to ER via Ambulatory with complaints of left kb side pain. 17:01 The patient or guardian complains of pain, tenderness. The symptoms are located on the kb left lateral aspect of neck. Onset: The symptoms/episode began/occurred this morning. Context: The problem was sustained at home, The neck injury/problem resulted from from unknown cause. Associated signs and symptoms: The patient has no apparent associated signs or symptoms, The patient denies any alcohol use. The patient is not apparently intoxicated. No neurological symptoms were experienced by the patient prior to arrival in the emergency department. The pain radiates to the anterior aspect of left shoulder and left clavicle. Modifying factors: The symptoms are alleviated by nothing. the symptoms are aggravated by movement, pressure. Severity of symptoms: At their worst the symptoms were moderate, in the emergency department the symptoms are unchanged. The patient has not experienced similar symptoms in the past. The patient has not recently seen a physician. Historical: - Allergies: 14:21 amoxicillin-pot clavulanate; aa5 - PMHx: 14:21 Hypertensive disorder; aa5 ROS: 16:59 Constitutional: Negative for fever, chills, and weight loss. kb 16:59 Neck: Positive for pain with movement, pain at rest, tenderness. 16:59 All other systems are negative. Exam: 16:59 Constitutional: This is a well developed, well nourished patient who is awake, alert, kb and in no acute distress. Head/Face: Normocephalic, atraumatic. Cardiovascular: Regular rate and rhythm with a normal S1 and S2. No gallops, murmurs, or rubs. No pulse deficits. Respiratory: Respirations even and unlabored. No increased work of breathing. Talking in full sentences Skin: Warm, dry with normal turgor. Normal color. MS/ Extremity: Pulses equal, no cyanosis. Neurovascular intact. Full, normal range of motion. Neuro: Awake and alert, GCS 15, oriented to person, place, time, and situation. Moves all extremities. Normal gait. 16:59 Neck: External neck: tenderness, that is moderate, of the left lateral aspect of neck, C-spine: appears grossly normal, ROM/movement: pain, Lymph nodes: no appreciated lymphadenopathy. 17:00 Chest/axilla: Inspection: normal, Palpation: tenderness, that is moderate, of the left kb clavicle, that totally reproduces the patient's complaints. Vital Signs: 14:21 BP 114 / 97; Pulse 79; Resp 18 S; Temp 97.3(TE); Pulse Ox 100% on R/A; Weight 74.39 kg aa5 (R); Height 5 ft. 5 in. (R); 14:21 Body Mass Index 27.29 (74.39 kg, 165.1 cm) aa5 MDM: 14:23 Patient medically screened. kb 17:00 Differential diagnosis: abscess, arterial occlusion, muscle strain. Data reviewed: kb vital signs, nurses notes. I considered the following discharge prescriptions or medication management in the emergency department I discussed and recommended Over The Counter medications, Antibiotics: At this time antibiotics are not recommended. Counseling: I had a detailed discussion with the patient and/or guardian regarding: the historical points, exam findings, and any diagnostic results supporting the discharge/admit diagnosis, lab results, radiology results, the need for outpatient follow up, a family practitioner, to return to the emergency department if symptoms worsen or persist or if there are any questions or concerns that arise at home. 12/08 14:26 Order name: CBC with Diff; Complete Time: 15:43 kb 12/08 14:26 Order name: Basic Metabolic Panel; Complete Time: 15:43 kb 12/08 16:39 Order name: CREATININE WHOLE BLOOD EDMS 12/08 14:26 Order name: CT Soft Tissue Neck W/contr; Complete Time: 15:30 kb 12/08 14:56 Order name: Upper Ext Artery Uni Pietro; Complete Time: 15:30 EDMS 12/08 14:26 Order name: IV Start; Complete Time: 16:40 kb Administered Medications: 14:28 Drug: Hydrocodone-Acetaminophen PO (7.5 mg-325 mg) 1 tabs Route: PO; aa5 16:40 Follow up: Response: No adverse reaction aa5 Disposition Summary: 05/04/23 16:09 Discharge Ordered Location: Home kb Condition: Stable kb Diagnosis - Strain of muscle, fascia and tendon at neck level kb Followup: kb - With: Emergency Department - When: As needed - Reason: Worsening of condition Followup: kb - With: Private Physician - When: 2 - 3 days - Reason: Recheck today's complaints, Continuance of care, Re-evaluation by your physician Discharge Instructions: - Discharge Summary Sheet kb - Musculoskeletal Pain kb - Muscle Strain, [id number] kb Forms: - Medication Reconciliation Form kb - Thank You Letter kb - Antibiotic Education kb - Prescription Opioid Use kb Prescriptions: - orphenadrine citrate 100 mg Oral Tablet Sustained Release - take 1 tablet by ORAL route 2 times per day As needed; 20 tablet; Refills: 0, kb Product Selection Permitted Signatures: Dispatcher [employer] EDAZ Rhiannon Ramirez, FURNACE CLEANER-C FURNACE CLEANER-Tanya Parks RN RN aa5 Corrections: (The following items were deleted from the chart) 14:56 14:27 Lower Extremity Artery Uni Ltd+US.RAD.BRZ ordered. EDAZ EDAZ 17:00 16:59 Constitutional: This is a well developed, well nourished patient who is awake, kb alert, and in no acute distress. Head/Face: Normocephalic, atraumatic. Cardiovascular: Regular rate and rhythm with a normal S1 and S2. No gallops, murmurs, or rubs. No pulse deficits. Respiratory: Respirations even and unlabored. No increased work of breathing. Talking in full sentences Skin: Warm, dry with normal turgor. Normal color. MS/ Extremity: Pulses equal, no cyanosis. Neurovascular intact. Full, normal range of motion. Neuro: Awake and alert, GCS 15, oriented to person, place, time, and situation. Moves all extremities. Normal gait. kb
--- NOTE | 2022-12-08 16:09 | ER ---
Nurse's Notes [facility] Name: Mi Ortiz Age: 57 yrs Sex: Female : 1965 Arrival Date: 12/08/2022 Time: 13:22 Bed 9 Private MD: Diagnosis: Strain of muscle, fascia and tendon at neck level Presentation: 12/08 14:21 Chief complaint: Patient states: pain to left side of neck radiating down to left aa5 anterior shoulder and to left clavicle states she woke up with the pain. Denies injury. Coronavirus screen: At this time, the client does not indicate any symptoms associated with coronavirus-19. Ebola Screen: Patient denies travel to an Ebola-affected area in the 21 days before illness onset. Initial Sepsis Screen: Does the patient meet any 2 criteria? No. Patient's initial sepsis screen is negative. Does the patient have a suspected source of infection? No. Patient's initial sepsis screen is negative. Risk Assessment: Do you want to hurt yourself or someone else? Patient reports no desire to harm self or others. Onset of symptoms was December 2022. 14:21 Acuity: CARMEN 3 aa5 14:21 Method Of Arrival: Ambulatory aa5 Historical: - Allergies: 14:21 amoxicillin-pot clavulanate; aa5 - PMHx: 14:21 Hypertensive disorder; aa5 Assessment: 16:40 Reassessment: Patient is alert, oriented x 3, equal unlabored respirations, skin aa5 warm/dry/pink. Pt reports improvement of pain. Vital Signs: 14:21 BP 114 / 97; Pulse 79; Resp 18 S; Temp 97.3(TE); Pulse Ox 100% on R/A; Weight 74.39 kg aa5 (R); Height 5 ft. 5 in. (R); 14:21 Body Mass Index 27.29 (74.39 kg, 165.1 cm) aa5 ED Course: 13:28 Patient arrived in ED. am2 13:48 Rhiannon Ramirez FNP-C is PHCP. kb 13:48 Colt Gusman MD is Attending Physician. kb 14:19 Arm band placed on. aa5 14:22 Triage completed. aa5 14:56 Upper Ext Artery Uni Pietro In Process Unspecified. EDMS 15:10 CT Soft Tissue Neck W/contr In Process Unspecified. EDMS 15:23 Note: 22 g diffusic to rt ac and labs drawn and sent by melody in [place]. sj 15:23 CT completed. [facility] to [facility]. 16:40 No provider procedures requiring assistance completed. IV discontinued, intact, aa5 bleeding controlled, No redness/swelling at site. Pressure dressing applied, 22G to R AC d/c'd. Administered Medications: 14:28 Drug: Hydrocodone-Acetaminophen PO (7.5 mg-325 mg) 1 tabs Route: PO; aa5 16:40 Follow up: Response: No adverse reaction aa5 Outcome: 16:09 Discharge ordered by . kb 16:41 Discharged to home ambulatory, with significant other. aa5 16:41 Condition: improved 16:41 Discharge instructions given to patient, Instructed on discharge instructions, follow up and referral plans. medication usage, Demonstrated understanding of instructions, follow-up care, medications, Prescriptions given X 1. 16:41 Patient left the ED. aa5 Signatures: Dispatcher [employer] EDWI Rhiannon Ramirez, LARYNGOLOGIST-C LARYNGOLOGIST-Melody Ruiz Audri, RN RN aa5 Lolis Sánchez am2 Corrections: (The following items were deleted from the chart) 16:41 16:40 IV discontinued, intact, bleeding controlled, No redness/swelling at site. aa5 Pressure dressing applied, aa5
[2022-12-08 16:52] VITALS: BP 114/97; TEMP 97.3; O2SAT 100
== END 2022-12-08 16:41 | disposition home or self-care (01) ==
LOC: ER 13:22
DX: S16.1XXA Strain of muscle, fascia and tendon at neck level, initial encounter (principal); I10 Essential (primary) hypertension; Z88.1 Allergy status to other antibiotic agents
CPT/HCPCS: 85025; 80048; 36415; 82565; 70491; 93931; 99283; Q9967

== ENCOUNTER 2023-01-22 18:50 | Emergency (ER) | payer BC ==
--- OUTSIDE RECORDS SUMMARY | 2023-01-22 18:55 | XMS REPORT | Continuity of Care Document ---
:[address] [facility] [place], [place] Address [address] [place] [address] [place] [id number] Care Team Providers Name Role Phone Pcp, Patient Does Not Have A Primary Care Physician [id number] Rossi Warner Attending Clinician Unavailable TUNDE RDZ Attending Clinician Unavailable Doctor Unassigned, [place] Attending Clinician Unavailable Tunde Rivas Attending Clinician Kodak Nicholson MD Attending Clinician Only, Adc Pob2 Test Attending Clinician Unavailable [...] Policy Number Effective Date Expiration Date S adan Problems Condition Condition Condition Status Onset Resolution Last Treating Co mments Source Name Details Category Date Date Treatment Clinician Date BMI BMI Disease Active 2016-08 Univers 29.0-29.9, 29.0-29.9, 1-10 it y of adult adult 00:00: [place] 00 Medical Branch BMI BMI Disease Active 2016-08 Univers 29.0-29.9, 29.0-29.9, 1-10 it y of adult adult 00:00: [place] 00 Medical Branch Prolapse Prolapse Disease Active 2016-08 Unive rs of female of female 1-10 ity of bladder, bladder, 00:00: [place] acquired acquired 00 Medica l Branch BMI BMI Disease Active 2016-08 Univers 29.0-29.9, 29.0-29.9, 1-10 it y of adult adult 00:00: [place] 00 Medical Branch Prolapse Prolapse Disease Active Unive rs of of 8-09 ity of anterior anterior 00:00: [place] vaginal vaginal 00 Medical wall wall Branch Obesity Obesity Disease Active 2015-08 Univers 0-06 ity of 00:00: [address] Encounter Encounter Disease Active 2015-08 Uni vers for for 0-06 [place] screening [place] examin[place] examinatio Br anch n n Depo-Prove Depo-Prove Disease Active 2014-08 U oswaldo ra ra 1-20 [place] contrace[place]pt [place]isa status 00 Pa dical Branch Essential Essential Disease Active 2014-08 Uni vers hypertensi hypertensi 1-20 [place], benign [place], benign [place] [facility] Contracept Contracept Disease Active 2014-08 U oswaldo márquez yulisa 1-13 [place] management [place] [facility] Acute Acute Disease Active 2014-08 Univers cystitis cystitis 1-11 ity of without without 00:00: [place] hematuria hematuria 00 [facility] [id number] Primary Problem Comm on osteoarthr Spirit itis of - [facility] right knee [facility] Allergies, Adverse Reactions, Alerts Allergy Allergy Status Severity Reaction(s) Onset Inactive Treating Comm ents Source Name Type Date Date Clinician NO KNOWN Drug Active Univers ALLERGIE Class ity of S [place] [facility] Social History Social Habit Start Date Stop Date Quantity Comments Source Sex Assigned At [facility] anamika - [facility] History of [facility] - Tobacco Use [facility] Exposure to 2022-11-28 2022-12-08 Not sure University SARS-CoV-2 00:00:00 08:18:00 [facility] (event) [place] Alcohol intake 2022-12-08 2022-12-08 0 /d [facility] 00:00:00 00:00:00 [facility] Tobacco use and 2022-11-08 2022-11-08 Smokeless tobacco Un iversity of exposure 00:00:00 00:00:00 non-user [facility] Smoking Status Start Date Stop Date Source Never smoked tobacco [facility] Medications Ordered Filled Start Stop Current Ordering Indication Dosage Frequency Signature Comments Components Source Medication Medication Date Date Medication? Clinician (SIG) Name Name diclofenac 2022- Yes [id number] 75mg Take 1 Univers 75 mg EC 4-04 05-05 tablet by ity o f tablet 00:00: 04:59 mouth 2 [place] 00 :00 (two) Medical times Branch daily with meals for 30 days. diclofenac 2022- Yes [id number] 75mg Take 1 Univers 75 mg EC 4-04 05-05 tablet by ity o f tablet 00:00: 04:59 mouth 2 [place] 00 :00 (two) Medical times Branch daily with meals for 30 days. diclofenac 2022- Yes [id number] 75mg Take 1 Univers 75 mg EC 4-04 05-05 tablet by ity o f tablet 00:00: 04:59 mouth 2 [place] 00 :00 (two) Medical times Branch daily with meals for 30 days. diclofenac 2022- Yes [id number] 75mg Take 1 Univers 75 mg EC 4-04 05-05 tablet by ity o f tablet 00:00: 04:59 mouth 2 [place] 00 :00 (two) Medical times Branch daily with meals for 30 days. diclofenac 2022- Yes [id number] 75mg Take 1 Univers 75 mg EC 4-04 05-05 tablet by ity o f tablet 00:00: 04:59 mouth 2 [place] 00 :00 (two) Medical times Branch daily with meals for 30 days. diclofenac 2022- Yes [id number] 75mg Take 1 Univers 75 mg EC 4-04 05-05 tablet by ity o f tablet 00:00: 04:59 mouth 2 [place] 00 :00 (two) Medical times Branch daily with meals for 30 days. diclofenac 2022- Yes [id number] 75mg Take 1 Univers 75 mg EC 4-04 05-05 tablet by ity o f tablet 00:00: 04:59 mouth 2 [place] 00 :00 (two) Medical times Branch daily with meals for 30 days. diclofenac 2022- Yes [id number] 75mg Take 1 Univers 75 mg EC 4-04 05-05 tablet by ity o f tablet 00:00: 04:59 mouth 2 [place] 00 :00 (two) Medical times Branch daily with meals for 30 days. diclofenac 2022- Yes [id number] 75mg Take 1 Univers 75 mg EC 4-04 05-05 tablet by ity o f tablet 00:00: 04:59 mouth 2 [place] 00 :00 (two) Medical times Branch daily with meals for 30 days. diclofenac 2022- Yes [id number] 75mg Take 1 Univers 75 mg EC 4-04 05-05 tablet by ity o f tablet 00:00: 04:59 mouth 2 [place] 00 :00 (two) Medical times Branch daily with meals for 30 days. Bupivicaine Bupivicaine 0 No 5mg [facility] [place] 8-30 Spirit 00:00: - [facility] 00 [facility] Kenalog Kenalog 2021-0 No 40mg Common (Triamcinol (Triamcinol 8-30 S pirit one) one) 00:00: - [facility] Bupivicaine Bupivicaine 2021-0 No 5mg [facility] [place] 8-30 Spirit 00:00: - [facility] 00 [facility] Kenalog Kenalog 2021-0 No 40mg Common (Triamcinol (Triamcinol 8-30 S pirit one) one) 00:00: - [facility] 00 [facility] Bupivicaine Bupivicaine 2021-0 No 5mg [facility] [place] 8-30 Spirit 00:00: - [facility] 00 [facility] Kenalog Kenalog 2021-0 No 40mg Common (Triamcinol (Triamcinol 8-30 S pirit one) one) 00:00: - [facility] 00 [facility] pantoprazol 2020-0 Yes [id number] 40mg Take 1 Univers e 40 mg EC 6-22 tablet by ity of tablet 00:00: mouth [place] 00 daily. Medical Branch pantoprazol 2020-0 Yes [id number] 40mg Take 1 Univers e 40 mg EC 6-22 tablet by ity of tablet 00:00: mouth [place] 00 daily. Medical Branch pantoprazol 2020-0 Yes [id number] 40mg Take 1 Univers e 40 mg EC 6-22 tablet by ity of tablet 00:00: mouth [place] 00 daily. Medical Branch pantoprazol 2020-0 Yes [id number] 40mg Take 1 Univers e 40 mg EC 6-22 tablet by ity of tablet 00:00: mouth [place] 00 daily. Medical Branch pantoprazol 2020-0 Yes [id number] 40mg Take 1 Univers e 40 mg EC 6-22 tablet by ity of tablet 00:00: mouth [place] 00 daily. Medical Branch pantoprazol 2020-0 Yes [id number] 40mg Take 1 Univers e 40 mg EC 6-22 tablet by ity of tablet 00:00: mouth [place] 00 daily. Medical Branch pantoprazol 2020-0 Yes [id number] 40mg Take 1 Univers e 40 mg EC 6-22 tablet by ity of tablet 00:00: mouth [place] 00 daily. Medical Branch pantoprazol 2020-0 Yes [id number] 40mg Take 1 Univers e 40 mg EC 6-22 tablet by ity of tablet 00:00: mouth [place] 00 daily. Medical Branch pantoprazol 2020-0 Yes [id number] 40mg Take 1 Univers e 40 mg EC 6-22 tablet by ity of tablet 00:00: mouth [place] 00 daily. Medical Branch pantoprazol 2020-0 Yes [id number] 40mg Take 1 Univers e 40 mg EC 6-22 tablet by ity of tablet 00:00: mouth [place] 00 daily. Medical Branch pantoprazol 2020-0 Yes [id number] 40mg Take 1 Univers e 40 mg EC 6-22 tablet by ity of tablet 00:00: mouth [place] 00 daily. Medical Branch pantoprazol 2020-0 Yes [id number] 40mg Take 1 Univers e 40 mg EC 6-22 tablet by ity of tablet 00:00: mouth [place] 00 daily. Medical Branch pantoprazol 2020-0 Yes [id number] 40mg Take 1 Univers e 40 mg EC 6-22 tablet by ity of tablet 00:00: mouth [place] 00 daily. Medical Branch pantoprazol 2019-0 Yes [id number] 40mg Take 1 Univers e 40 mg EC 6-22 tablet by ity of tablet 00:00: mouth [place] 00 daily. Medical Branch pantoprazol 2019-0 Yes [id number] 40mg Take 1 Univers e 40 mg EC 6-22 tablet by ity of tablet 00:00: mouth [place] 00 daily. Medical Branch pantoprazol 2019-0 Yes [id number] 40mg Take 1 Univers e 40 mg EC 6-22 tablet by ity of tablet 00:00: mouth [place] 00 daily. Medical Branch pantoprazol 2019-0 Yes [id number] 40mg Take 1 Univers e 40 mg EC 6-22 tablet by ity of tablet 00:00: mouth [place] 00 daily. Medical Branch pantoprazol 2019-0 Yes [id number] 40mg Take 1 Univers e 40 mg EC 6-22 tablet by ity of tablet 00:00: mouth [place] 00 daily. Medical Branch pantoprazol 2019-0 Yes [id number] 40mg Take 1 Univers e 40 mg EC 6-22 tablet by ity of tablet 00:00: mouth [place] 00 daily. Medical Branch pantoprazol 2019-0 Yes [id number] 40mg Take 1 Univers e 40 mg EC 6-22 tablet by ity of tablet 00:00: mouth [place] 00 daily. Medical Branch pantoprazol 2019-0 Yes [id number] 40mg Take 1 Univers e 40 mg EC 6-22 tablet by ity of tablet 00:00: mouth [place] 00 daily. Medical Branch pantoprazol 2019-0 Yes [id number] 40mg Take 1 Univers e 40 mg EC 6-22 tablet by ity of tablet 00:00: mouth [place] 00 daily. Medical Branch pantoprazol 2019-0 Yes [id number] 40mg Take 1 Univers e 40 mg EC 6-22 tablet by ity of tablet 00:00: mouth [place] 00 daily. Medical Branch traMADOL 2018-0 Yes [id number] 50mg Take 1 Uni vers (ULTRAM) 50 3-10 tablet by ity of mg tablet 00:00: mouth [place] 00 every 6 Medical (six) Branch hours as needed for Pain (scale 7-10). clindamycin 2018- Yes [id number] 300mg Take 1 Univers 300 mg 3-10 capsule by ity of capsule 00:00: mouth 3 (three) Medical times Branch daily. traMADOL 2019-0 Yes [id number] 50mg Take 1 Uni vers (ULTRAM) 50 3-10 tablet by ity of mg tablet 00:00: mouth [place] 00 every 6 Medical (six) Branch hours as needed for Pain (scale 7-10). clindamycin 2019-0 Yes [id number] 300mg Take 1 Univers 300 mg 3-10 capsule by ity of capsule 00:00: mouth 3 (three) Medical times Branch daily. traMADOL 2019-0 Yes [id number] 50mg Take 1 Uni vers (ULTRAM) 50 3-10 tablet by ity of mg tablet 00:00: mouth [place] 00 every 6 Medical (six) Branch hours as needed for Pain (scale 7-10). clindamycin 2019-0 Yes [id number] 300mg Take 1 Univers 300 mg 3-10 capsule by ity of capsule 00:00: mouth (three) Medical times Branch daily. traMADOL 2019-0 Yes [id number] 50mg Take 1 Uni vers (ULTRAM) 50 3-10 tablet by ity of mg tablet 00:00: mouth [place] 00 every 6 Medical (six) Branch hours as needed for Pain (scale 7-10). clindamycin 2019-0 Yes [id number] 300mg Take 1 Univers 300 mg 3-10 capsule by ity of capsule 00:00: mouth (three) Medical times Branch daily. traMADOL 2019-0 Yes [id number] 50mg Take 1 Uni vers (ULTRAM) 50 3-10 tablet by ity of mg tablet 00:00: mouth [place] 00 every 6 Medical (six) Branch hours as needed for Pain (scale 7-10). clindamycin 2019-0 Yes [id number] 300mg Take 1 Univers 300 mg 3-10 capsule by ity of capsule 00:00: mouth 3 (three) Medical times Branch daily. traMADOL 2019-0 Yes [id number] 50mg Take 1 Uni vers (ULTRAM) 50 3-10 tablet by ity of mg tablet 00:00: mouth [place] 00 every 6 Medical (six) Branch hours as needed for Pain (scale 7-10). clindamycin 2019-0 Yes [id number] 300mg Take 1 Univers 300 mg 3-10 capsule by ity of capsule 00:00: mouth 3 (three) Medical times Branch daily. traMADOL 2019-0 Yes [id number] 50mg Take 1 Uni vers (ULTRAM) 50 3-10 tablet by ity of mg tablet 00:00: mouth [place] 00 every 6 Medical (six) Branch hours as needed for Pain (scale 7-10). clindamycin 2019-0 Yes [id number] 300mg Take 1 Univers 300 mg 3-10 capsule by ity of capsule 00:00: mouth (three) Medical times Branch daily. traMADOL 2019-0 Yes [id number] 50mg Take 1 Uni vers (ULTRAM) 50 3-10 tablet by ity of mg tablet 00:00: mouth [place] 00 every 6 Medical (six) Branch hours as needed for Pain (scale 7-10). clindamycin 2019-0 Yes [id number] 300mg Take 1 Univers 300 mg 3-10 capsule by ity of capsule 00:00: mouth (three) Medical times Branch daily. traMADOL 2019-0 Yes [id number] 50mg Take 1 Uni vers (ULTRAM) 50 3-10 tablet by ity of mg tablet 00:00: mouth [place] 00 every 6 Medical (six) Branch hours as needed for Pain (scale 7-10). traMADOL 2019-0 Yes [id number] 50mg Take 1 Uni vers (ULTRAM) 50 3-10 tablet by ity of mg tablet 00:00: mouth [place] 00 every 6 Medical (six) Branch hours as needed for Pain (scale 7-10). clindamycin 2019-0 Yes [id number] 300mg Take 1 Univers 300 mg 3-10 capsule by ity of capsule 00:00: mouth (three) Medical times Branch daily. clindamycin 2019-0 Yes [id number] 300mg Take 1 Univers 300 mg 3-10 capsule by ity of capsule 00:00: mouth (three) Medical times Branch daily. traMADOL 2019-0 Yes [id number] 50mg Take 1 Uni vers (ULTRAM) 50 3-10 tablet by ity of mg tablet 00:00: mouth [place] 00 every 6 Medical (six) Branch hours as needed for Pain (scale 7-10). clindamycin 2019-0 Yes [id number] 300mg Take 1 Univers 300 mg 3-10 capsule by ity of capsule 00:00: mouth (three) Medical times Branch daily. traMADOL 2019-0 Yes [id number] 50mg Take 1 Uni vers (ULTRAM) 50 3-10 tablet by ity of mg tablet 00:00: mouth [place] 00 every 6 Medical (six) Branch hours as needed for Pain (scale 7-10). clindamycin 2019-0 Yes [id number] 300mg Take 1 Univers 300 mg 3-10 capsule by ity of capsule 00:00: mouth (three) Medical times Branch daily. traMADOL 2019-0 Yes [id number] 50mg Take 1 Uni vers (ULTRAM) 50 3-10 tablet by ity of mg tablet 00:00: mouth [place] 00 every 6 Medical (six) Branch hours as needed for Pain (scale 7-10). clindamycin 2019-0 Yes [id number] 300mg Take 1 Univers 300 mg 3-10 capsule by ity of capsule 00:00: mouth (three) Medical times Branch daily. traMADOL 2019-0 Yes [id number] 50mg Take 1 Uni vers (ULTRAM) 50 3-10 tablet by ity of mg tablet 00:00: mouth [place] 00 every 6 Medical (six) Branch hours as needed for Pain (scale 7-10). clindamycin 2019-0 Yes [id number] 300mg Take 1 Univers 300 mg 3-10 capsule by ity of capsule 00:00: mouth (three) Medical times Branch daily. traMADOL 2019-0 Yes [id number] 50mg Take 1 Uni vers (ULTRAM) 50 3-10 tablet by ity of mg tablet 00:00: mouth 00 every 6 Medical (six) Branch hours as needed for Pain (scale 7-10). clindamycin 2019-0 Yes [id number] 300mg Take 1 Univers 300 mg 3-10 capsule by ity of capsule 00:00: mouth (three) Medical times Branch daily. traMADOL 2019-0 Yes [id number] 50mg Take 1 Uni vers (ULTRAM) 50 3-10 tablet by ity of mg tablet 00:00: mouth [place] 00 every 6 Medical (six) Branch hours as needed for Pain (scale 7-10). clindamycin 2019-0 Yes [id number] 300mg Take 1 Univers 300 mg 3-10 capsule by ity of capsule 00:00: mouth (three) Medical times Branch daily. traMADOL 2019-0 Yes [id number] 50mg Take 1 Uni vers (ULTRAM) 50 3-10 tablet by ity of mg tablet 00:00: mouth [place] 00 every 6 Medical (six) Branch hours as needed for Pain (scale 7-10). clindamycin 2019-0 Yes [id number] 300mg Take 1 Univers 300 mg 3-10 capsule by ity of capsule 00:00: mouth 3 00 (three) Medical times Branch daily. traMADOL 2019-0 Yes [id number] 50mg Take 1 Uni vers (ULTRAM) 50 3-10 tablet by ity of mg tablet 00:00: mouth [place] 00 every 6 Medical (six) Branch hours as needed for Pain (scale 7-10). clindamycin 2019-0 Yes [id number] 300mg Take 1 Univers 300 mg 3-10 capsule by ity of capsule 00:00: mouth (three) Medical times Branch daily. traMADOL 2019-0 Yes [id number] 50mg Take 1 Uni vers (ULTRAM) 50 3-10 tablet by ity of mg tablet 00:00: mouth [place] 00 every 6 Medical (six) Branch hours as needed for Pain (scale 7-10). clindamycin 2019-0 Yes [id number] 300mg Take 1 Univers 300 mg 3-10 capsule by ity of capsule 00:00: mouth (three) Medical times Branch daily. traMADOL 2019-0 Yes [id number] 50mg Take 1 Uni vers (ULTRAM) 50 3-10 tablet by ity of mg tablet 00:00: mouth [place] 00 every 6 Medical (six) Branch hours as needed for Pain (scale 7-10). clindamycin 2019-0 Yes [id number] 300mg Take 1 Univers 300 mg 3-10 capsule by ity of capsule 00:00: mouth (three) Medical times Branch daily. traMADOL 2019-0 Yes [id number] 50mg Take 1 Uni vers (ULTRAM) 50 3-10 tablet by ity of mg tablet 00:00: mouth [place] 00 every 6 Medical (six) Branch hours as needed for Pain (scale 7-10). clindamycin 2019-0 Yes [id number] 300mg Take 1 Univers 300 mg 3-10 capsule by ity of capsule 00:00: mouth 00 (three) Medical times Branch daily. traMADOL 2019-0 Yes [id number] 50mg Take 1 Uni vers (ULTRAM) 50 3-10 tablet by ity of mg tablet 00:00: mouth [place] 00 every 6 Medical (six) Branch hours as needed for Pain (scale 7-10). clindamycin 2019-0 Yes [id number] 300mg Take 1 Univers 300 mg 3-10 capsule by ity of capsule 00:00: mouth 3 [place] 00 (three) Medical times Branch daily. traMADOL 2019-0 Yes [id number] 50mg Take 1 Uni vers (ULTRAM) 50 3-10 tablet by ity of mg tablet 00:00: mouth [place] 00 every 6 Medical (six) Branch hours as needed for Pain (scale 7-10). clindamycin 2019-0 Yes [id number] 300mg Take 1 Univers 300 mg 3-10 capsule by ity of capsule 00:00: mouth 3 00 (three) Medical times Branch daily. traMADOL 2019-0 Yes [id number] 50mg Take 1 Uni vers (ULTRAM) 50 3-10 tablet by ity of mg tablet 00:00: mouth [place] 00 every 6 Medical (six) Branch hours as needed for Pain (scale 7-10). clindamycin 2019-0 Yes [id number] 300mg Take 1 Univers 300 mg 3-10 [...] [place] 00 every Medical morning. Branch hydroCHLORO 2017- Yes 25mg Take 1 Univ [...] [place] 00 every Medical morning. Branch hydroCHLORO 2017- Yes 25mg Take 1 Univ [...] Filled Immunization Date Status Comments [facility] e Immunization Name Name TDAP (ADACEL) 2015-02-04 Completed University of VACCINE 00:00:00 [facility] TDAP (ADACEL) 2015-02-04 Completed University of VACCINE 00:00:00 [facility] TDAP (ADACEL) 2015-02-04 Completed University of VACCINE 00:00:00 [facility] TDAP (ADACEL) 2015-02-04 Completed University of VACCINE 00:00:00 [facility] TDAP (ADACEL) 2015-02-04 Completed University of VACCINE 00:00:00 [facility] TDAP (ADACEL) 2015-02-04 Completed University of VACCINE 00:00:00 [facility] TDAP (ADACEL) 2015-02-04 Completed University of VACCINE 00:00:00 [facility] TDAP (ADACEL) 2015-02-04 Completed University of VACCINE 00:00:00 [place] [facility] TDAP (ADACEL) 2015-02-04 Completed University of VACCINE 00:00:00 [place] [facility] TDAP (ADACEL) 2015-02-04 Completed University of VACCINE 00:00:00 [place] [facility] TDAP (ADACEL) 2015-02-04 Completed University of VACCINE 00:00:00 [place] [facility] Branch TDAP (ADACEL) 2015-02-04 Completed University of VACCINE 00:00:00 [facility] Branch TDAP (ADACEL) 2015-02-04 Completed University of VACCINE 00:00:00 [place] [facility] TDAP (ADACEL) 2015-02-04 Completed University of VACCINE 00:00:00 [place] [facility] Branch TDAP (ADACEL) 2015-02-04 Completed University of VACCINE 00:00:00 [facility] Branch TDAP (ADACEL) 2015-02-04 Completed University of VACCINE 00:00:00 [facility] Branch TDAP (ADACEL) 2015-02-04 Completed University of VACCINE 00:00:00 [facility] Branch TDAP (ADACEL) 2015-02-04 Completed University of VACCINE 00:00:00 [facility] Branch TDAP (ADACEL) 2015-02-04 Completed University of VACCINE 00:00:00 [place] [facility] Branch TDAP (ADACEL) 2015-02-04 Completed University of VACCINE 00:00:00 [facility] Branch TDAP (ADACEL) 2015-02-04 Completed University of VACCINE 00:00:00 [facility] Branch TDAP (ADACEL) 2015-02-04 Completed University of VACCINE 00:00:00 [facility] TDAP (ADACEL) 2015-02-04 Completed University of VACCINE 00:00:00 [facility] TDAP (ADACEL) 2015-02-04 Completed University of VACCINE 00:00:00 [facility] Vital Signs Vital Name Observation Time Observation Value Comments Source Body height 2022-12-08 13:31:00 165.1 cm [facility] Body weight 2022-12-08 13:31:00 75.297 kg [facility] BMI 2022-12-08 13:31:00 27.62 kg/m2 [facility] Systolic blood 2022-11-08 18:02:00 118 mm[Hg] Univer sity of pressure [facility] Diastolic blood 2022-11-08 18:02:00 77 mm[Hg] Unive rsity of pressure [facility] Heart rate 2022-11-08 18:02:00 80 /min Universi ty [facility] [place] [place] Body height 2022-11-08 18:02:00 165.1 cm [facility]i ty [facility] [place] [place] Body weight 2022-11-08 18:02:00 75.479 [address] [facility] [place] [place] BMI 2022-11-08 18:02:00 27.69 kg/m2 Universi ty [facility] [place] [place] height 2022-05-10 15:00:00 65 [in_i] [facility] weight 2022-05-10 15:00:00 159 [lb_av] [facility] temperature 2022-05-10 15:00:00 98.1 [degF] [facility] bmi 2022-05-10 15:00:00 26.46 kg/m2 [facility] blood pressure 2022-05-10 15:00:00 114 mm[Hg] [facility] - systolic [facility] blood pressure 2022-05-10 15:00:00 70 mm[Hg] [facility] - diastolic [facility] height 2022-04-05 10:30:00 65 [in_i] [facility] weight 2022-04-05 10:30:00 159 [lb_av] [facility] temperature 2022-04-05 10:30:00 97.6 [degF] [facility] bmi 2022-04-05 10:30:00 26.46 kg/m2 [facility] blood pressure 2022-04-05 10:30:00 126 mm[Hg] [facility] - systolic [facility] blood pressure 2022-04-05 10:30:00 84 mm[Hg] [facility] - diastolic [facility] Systolic blood 2020-01-27 15:55:00 126 mm[Hg] Univer sity of [facility] Diastolic blood 2020-01-27 15:55:00 89 mm[Hg] Unive rsity of pressure [place] [facility] Heart rate 2020-01-27 15:55:00 83 /min Universi ty of [place] [facility] Body temperature 2020-01-27 15:55:00 36.33 Rossi Univ ers[facility] [place] [facility] Body height 2020-01-27 15:55:00 165.1 cm Universi ty of [place] [facility] Body weight 2020-01-27 15:55:00 87.907 kg Universi ty of [place] [facility] BMI 2020-01-27 15:55:00 32.25 kg/m2 Universi ty of [place] [facility] Systolic blood 2020-01-27 15:55:00 126 mm[Hg] Univer sity of pressure [place] [facility] Diastolic blood 2020-01-27 15:55:00 89 mm[Hg] Unive rsity of pressure [place] [facility] Heart rate 2020-01-27 15:55:00 83 /min Universi ty of [place] [facility] Body temperature 2020-01-27 15:55:00 36.33 Rossi [facility] [place] [facility] Body height 2020-01-27 15:55:00 165.1 cm [facility] [place] [facility] Body weight 2020-01-27 15:55:00 87.907 kg [facility] [place] [facility] BMI 2020-01-27 15:55:00 32.25 kg/m2 [facility] [place] [facility] Procedures Procedure Date / Time Performing Clinician Source Performed AUTHORIZATION FOR 2022-12-19 05:01:00 Doctor Unassigned, No [facility] [place] RELEASE OF PHI Name Medical Branch REFERRAL- 2022-11-02 05:01:00 Doctor Unassigned, No [facility] [place] REQUEST/RESPONSE Name Medical Branch WORKERS COMPENSATION 2022-10-14 06:01:00 Doctor Unassigned, No [facility] [place] Name Medical Branch EXTERNAL PROVIDER 2021-02-17 05:01:00 Doctor Unassigned, No [facility] [place] RECORDS Name Medical Branch EXTERNAL PROVIDER 2020-03-02 05:01:00 Doctor Unassigned, No [facility] [place] RECORDS Name Medical Branch ASSIGNMENT OF BENEFITS 2020-01-27 15:36:07 Doctor Unassigned, No [facility] [place] Name Medical Branch Encounters Start End Encounter Admission Attending Care Care Encounter Source Date/Time Date/Time Type Type Clinicians Facility Department ID 2022-05-10 Outpatient YAEL Warner [facility] [id number] Common 13:46:02 Rossi [facility] 2022-05-09 Outpatient Timmy STCARA [facility] [id number] Common 11:56:01 [facility] 2022-04-12 Outpatient YAEL Warner [facility] [id number] Common 09:34:01 [facility]i [facility] 2022-04-05 Outpatient YAEL Warner [facility] [id number] Common 10:41:01 Rossi [facility] 2022-12-19 2022-12-19 Orders Doctor ONESIMO 1.2.840.114 [id number] Univers 00:00:00 00:00:00 Only Unassigned, EUNICE 350.1.13.10 ity of [place] [facility] 4.2.7.2.686 Isaías as [phone] [address] 2022-12-08 2022-12-08 Office [facility] 1.2.840.114 [id number] [facility] 08:45:00 09:00:00 Visit [facility] [employer]SP 350.1.13.10 it [facility] 4.2.7.2.686 Isaías as MIREYA?BLEA [phone] Pa [address] OFFICE [facility] 2022-12-08 2022-12-08 Outpatient R KAJAL [facility] [id number] Univers 08:45:00 08:45:00 TUNDE ity of [facility] 2022-11-21 2022-11-21 Telephone [facility] 1.2.840.114 [id number] Univers 00:00:00 00:00:00 [employer] 350.1.13.10 it y of [place] 4.2.7.2.686 Isaías as MIREYA?BLEA [phone] Pa mylene[address] OFFICE [facility] 2022-11-18 2022-11-18 Telephone [facility] [id number] Univers 00:00:00 00:00:00 Tunde S HEALTH 350.1.13.10 it y of [place] 4.2.7.2.686 Isaísa as MIREYA?BLEA [phone] Pa annette ALCANTARA 198 [facility] 2022-11-10 2022-11-10 Telephone [facility] [id number] Univers 00:00:00 00:00:00 Tunde S HEALTH 350.1.13.10 it y of [place] 4.2.7.2.686 Isaías as MIREYA?BLEA [phone] Pa annette ALCANTARA [address] [place] [address] 2022-11-08 2022-11-08 [facility] [id number] Univers 13:00:00 14:03:14 TUNDE ity of [facility] 2022-11-08 2022-11-08 Office [facility] 1.2.840.114 [id number] Univers 13:00:00 14:03:14 Visit [facility] 350.1.13.10 it y of [place] 4.2.7.2.686 Isaías as MIREYA?BLEA [phone] Pa annette ALCANTARA [address] [place] [address] 2022-11-08 2022-11-08 Telephone [facility] [id number] Univers 00:00:00 00:00:00 Tunde S HEALTH 350.1.13.10 it y of [place] 4.2.7.2.686 Isaías as MIREYA?BLEA [phone] Pa annette ALCANTARA [address] [place] [address] 2022-11-02 2022-11-02 Orders Doctor ECHOLS 1.2.840.114 [id number] Univers 00:00:00 00:00:00 Only Unassigned, EUNICE 350.1.13.10 ity of [place] [facility] 4.2.7.2.686 Isaías as [phone] [address] 2022-10-14 2022-10-14 Orders Doctor ONESIMO 1.2.840.114 [id number] Univers 00:00:00 00:00:00 Only Unassigned, EUNICE 350.1.13.10 ity of [place] [facility] 4.2.7.2.686 Isaías as [phone] [address] 2022-05-10 2022-05-10 OFFICE STL[facility] [id number] Co mmon 00:00:00 00:00:00 VISIT EST Spir it PT LEVEL 3 - [facility] 2022-04-05 2022-04-05 OFFICE STLMLC ST[facility] [id number] Co mmon 00:00:00 00:00:00 VISIT NEW Spir it PT LEVEL 4 - [facility] 2021-09-01 2021-09-01 Laboratory Only, Adc Pob2 Test [facility] 1.2 .840.114 [id number] Univers 11:00:00 11:15:00 Only Gibran Walters [facility].13 .[facility] [place] [phone] [address] 2021-09-01 2021-09-01 Outpatient R SELENA [facility] [id number] Univers 11:00:00 11:05:[address] [facility] [place] [place] 2021-09-01 2021-09-01 Telephone ONESIMO Tineo [id number] Univers 00:00:00 00:00:00 Izabela DAWSON 350.1.13.10 it [facility] 4.2.7.2.686 Isaías as [phone] [address] 2021-08-30 2021-08-30 Outpatient R SELENA [facility] [id number] Univers 10:30:00 10:41:[address] [facility] [place] 2021-08-30 2021-08-30 Laboratory Only, Adc Pob2 Test [facility] 1.2 .840.114 [id number] Univers 10:30:00 10:41:00 Only Gibran Walters 350.1.13 .10 [facility] [place] [phone] Pa dic[address] 2021-08-30 2021-08-30 Letter ONESIMO Garcia 1.2.840.114 [id number] Univers 00:00:00 00:00:00 (Out) Elicia DAWSON 350.1.13.10 it y of HOSPITAL 4.2.7.2.686 Isaías as [phone] [facility] [address] 2021-02-17 2021-02-17 Orders Doctor ONESIMO 1.2.840.114 [id number] Univers 00:00:00 00:00:00 Only Unassigned, EUNICE 350.1.13.10 ity of [place] [facility] 4.2.7.2.686 Isaías as [phone] [facility] [address]9 [address] 2021-02-09 2021-02-09 Telephone JORDYN Denson 1.2.840.114 [id number] Univers 00:00:00 00:00:00 Annmarie E Y HEALTH 350.1.13.10 ity of [place] [phone] [facility] [address] 2020-03-02 2020-03-02 Orders Doctor ONESIMO 1.2.840.114 [id number] Univers 00:00:00 00:00:00 Only Unassigned, EUNICE 350.1.13.10 ity of [place] [facility] 4.2.7.2.686 Isaías as [phone] [facility] [address] [place] 2020-03-02 2020-03-02 Orders Doctor ONESIMO 1.2.840.114 [id number] 00:00:00 00:00:00 Only Unassigned, EUNICE 350.1.13.10 [place] [facility] 4.2.7.2.686 [id number] 009 2020-02-24 2020-02-24 Outpatient [facility] [id number] [facility] 10:30:00 10:30:00 ANNMARIE whitman o f [facility] 2020-02-13 2020-02-13 Ancillary Swallows, Gal Speech Modifie d Barium UNIVERSIT 1.2.840.114 [id number] Univers 11:00:12 11:30:12 Visit Yee [place] Y 350.1.13.10 ity of [place] 4.2.7.2.686 Isaías as BANK [phone] [facility] BLDG. 145 Branch 2020-02-13 2020-02-13 Ancillary Swallows, UNIVERSIT 1.2.840.114 [id number] 11:00:12 11:30:12 Visit Gal Speech Y 350.1.13.10 Modified [facility] 4.2.7.2.686 formerly [facility] [phone] BLDG. 145 2020-02-13 2020-02-13 Outpatient [facility] [id number] Univers 09:00:00 09:00:00 YEE j carlos of [facility] 2020-01-27 2020-01-27 Office [facility] [id number] Univers 10:43:44 11:39:23 Visit Annmarie E Y HEALTH 350.1.13.10 ity of [place] [phone] [place] [address] Branch 2020-01-27 2020-01-27 Office [facility] [id number] 10:43:44 11:39:23 Visit Annmarie E Y HEALTH 350.1.13.10 [facility] [phone] [facility] 2020-01-27 2020-01-27 Outpatient R [facility] [id number] Univers 10:30:00 10:30:00 ANNMARIE ity o f [facility] 2020-01-27 2020-01-27 Orders Doctor ONESIMO 1.2.840.114 [id number] Univers 00:00:00 00:00:00 Only Unassigned, EUNICE 350.1.13.10 ity of [place] [facility] 4.2.7.2.686 Isaías as [phone] [place] [address] Branch Results This patient has no known results.
[2023-01-22] MEDS ORDERED: HYDROCODONE/APAP 7.5/325 MG TAB ONE (19:38)
--- NOTE | 2023-01-22 19:57 | RAD REPORT ---
EXAM DESCRIPTION: CT - Stone Protocol - 01/22/2023 7:43 pm CLINICAL HISTORY: FLANK PAIN COMPARISON: Abdomen Pelvis W Contrast dated 02/09/2022; Abdomen Pelvis W Contrast dated 01/14/2022; Stone Protocol dated 06/25/2021; Abdomen Pelvis W Contrast dated 08/18/2020 TECHNIQUE: Thin cut axial CT imaging of the abdomen and pelvis was performed without IV contrast. Mu ltiplanar reformats were generated and reviewed. All CT scans are performed using dose optimization technique as appropriate and may include automated exposure control or mA/KV adjustment according to patient size. FINDINGS: No suspicious findings in the lung bases. The liver, spleen, and pancreas show no suspicious findings. Gallbladder and biliary tree are also wi thout suspicious finding. Symmetric renal contour, without suspicious parenchymal findings within limits of noncontrast techniq ue. No evidence of radiopaque calculi or hydroureteronephrosis. No dilated bowel loops or bowel wall thickening. Few colonic diverticula. Appendix is unremarkable. N o free air, free fluid or inflammatory stranding. No hernia, mass or bulky lymphadenopathy. The urina ry bladder is suboptimally distended, limiting evaluation. No suspicious bony findings. Small lucent lesions along the iliac bones are stable dating back to , and may suggest small bone cysts or hemangiomas, nevertheless there appear to be benign. IMPRESSION: No acute intra-abdominal process.
[2023-01-22 20:24] LABS: Specific Gravity 1.007 (1.005-1.030); Urine Bacteria None Seen /HPF (<20); Urine Bilirubin NEGATIVE (Negative); Urine Blood Negative (Negative); Urine Clarity Turbid (Clear); Urine Color Dark-Yellow (Yellow); Urine Glucose NEGATIVE (Negative); Urine Protein NEGATIVE (Negative); Urine Urobilinogen Normal (Normal); Urine WBC Clump Few /HPF (None Seen)
--- NOTE | 2023-01-22 20:48 | ER ---
Nurse's Notes [facility] Name: Mi Ortiz Age: 57 yrs Sex: Female : 1965 Arrival Date: 01/22/2023 Time: 18:50 Bed 8 Private MD: Diagnosis: UTI/ Urinary tract infection, site not specified Presentation: 01/22 19:20 Chief complaint: Chief complaint: Patient states: It has been hard for me to urinate kd3 and it almeida when i do since yesterday. I have no lower abdominal pain and i have no back pain or nausea. I have been taking azo to try and help. 19:22 Coronavirus screen: Vaccine status: Patient reports receiving the 2nd dose of the covid kd3 vaccine. Ebola Screen: No symptoms or risks identified at this time. Initial Sepsis Screen: Does the patient meet any 2 criteria? No. Patient's initial sepsis screen is negative. Does the patient have a suspected source of infection? Yes: Dysuria/Frequency/Urgency/UTI. Risk Assessment: Do you want to hurt yourself or someone else? Patient reports no desire to harm self or others. Onset of symptoms was January 21, 2023. 19:22 Method Of Arrival: Ambulatory kd3 19:22 Acuity: CARMEN 3 kd3 Triage Assessment: 19:24 General: Appears uncomfortable, Behavior is calm, cooperative. Pain: Complains of pain kd3 in pelvis. Historical: - Allergies: 19:24 amoxicillin-pot clavulanate; kd3 - Home Meds: 19:24 lisinopril 10 mg Oral tab 1 tab once daily [Active]; kd3 - PMHx: 19:24 Hypertensive disorder; kd3 - Immunization history:: Adult Immunizations up to date. - Social history:: Smoking status: Patient denies any tobacco usage or history of. Screenin:16 [facility] ED Fall Risk Assessment (Adult) History of falling in the last 3 months, ha1 including since admission No falls in past 3 months (0 pts) Confusion or Disorientation No (0 pts) Intoxicated or Sedated No (0 pts) Impaired Gait No (0 pts) Score/Fall Risk Level 0 - 2 = Low Risk Oriented to surroundings, Maintained a safe environment, Educated pt \T\ family on fall prevention, incl call for assistance when getting out of bed, Hourly rounding (assess needs \T\ fall precautionary measures) done. Abuse screen: Denies threats or abuse. Denies injuries from another. Nutritional screening: No deficits noted. Tuberculosis screening: No symptoms or risk factors identified. Assessment: 19:36 General: Appears comfortable, Behavior is calm, cooperative. Pain: Complains of pain in ha1 vaginal area Pain does not radiate. Pain currently is 7 out of 10 on a pain scale. Neuro: Level of Consciousness is awake, alert, obeys commands, Oriented to person, place, time, situation. Cardiovascular: Patient's skin is warm and dry. Respiratory: Airway is patent Respiratory effort is even, unlabored, Respiratory pattern is regular, symmetrical. GI: Abdomen is flat, non-distended. : Reports pain in suprapubic area urinary frequency. 20:35 Reassessment: Patient and/or family updated on plan of care and expected duration. Pain ha1 level reassessed. Patient is alert, oriented x 3, equal unlabored respirations, skin warm/dry/pink. 21:14 Reassessment: Patient and/or family updated on plan of care and expected duration. Pain ha1 level reassessed. Patient is alert, oriented x 3, equal unlabored respirations, skin warm/dry/pink. Vital Signs: 19:22 BP 130 / 97; Pulse 68; Resp 16; Temp 98.2(O); Pulse Ox 100% on R/A; Weight 77.56 kg; kd3 Height 5 ft. 5 in. ; 19:42 BP 136 / 85; Pulse 69; Resp 16; Pulse Ox 99% on R/A; ha1 20:35 BP 132 / 93; Pulse 65; Resp 16; Pulse Ox 98% on R/A; ha1 19:22 Body Mass Index 28.46 (77.56 kg, 165.1 cm) kd3 ED Course: 18:51 Patient arrived in ED. ts1 18:55 Marciano Pearson PA is PHCP. cp 18:55 Tameka Johns MD is Attending Physician. cp 19:09 Patient has correct armband on for positive identification. Bed in low position. Call ha1 light in reach. Side rails up X 1. 19:24 Triage completed. kd3 19:24 Arm band placed on right wrist. kd3 19:44 CT Stone Protocol In Process Unspecified. EDMS 21:14 Urine Culture Sent. ha1 21:16 No provider procedures requiring assistance completed. Patient did not have IV access ha1 during this emergency room visit. Administered Medications: 19:35 Drug: Hydrocodone-Acetaminophen PO (7.5 mg-325 mg) 1 tabs Route: PO; ha1 20:35 Follow up: Response: No adverse reaction; Pain is decreased; RASS: Alert and Calm (0) ha1 21:00 Drug: Rocephin (cefTRIAXone) IM 1 grams Route: IM; Site: left ventrogluteal; ha1 21:14 Follow up: Response: No adverse reaction ha1 Medication: 21:17 VIS not applicable for this client. ha1 Outcome: 20:48 Discharge ordered by . jose 21:16 Discharged to home ambulatory. ha1 21:16 Condition: stable 21:16 Discharge instructions given to patient, Instructed on discharge instructions, follow up and referral plans. medication usage, Demonstrated understanding of instructions, follow-up care, medications, Prescriptions given X 3. 21:17 Patient left the ED. ha1 Signatures: Dispatcher [employer] EDMI Marciano Pearson PA PA cp Doucette, Kyli, RN RN kd3 Dari Carter RN RN ha1 Dasia Lopez PAS PAS ts1 Corrections: (The following items were deleted from the chart) 19:24 19:20 Chief complaint: kd3 kd3
--- NOTE | 2023-01-22 20:48 | EDPHYS ---
Physician Documentation [facility] Name: Mi Ortiz Age: 57 yrs Sex: Female : 1965 Arrival Date: 01/22/2023 Time: 18:50 Bed 8 Private MD: ED Physician Tameka Johns HPI: 01/22 19:25 This 57 yrs old Female presents to ER via Ambulatory with complaints of cp Urinary Problem. 19:25 The patient presents with urinary symptoms, dysuria, frequency, urgency. Onset: The cp symptoms/episode began/occurred yesterday. 19:25 Associated signs and symptoms: Pertinent negatives: diarrhea, fever, vaginal bleeding, cp vomiting. Severity of symptoms: in the emergency department the symptoms are unchanged, despite home interventions. Historical: - Allergies: 19:24 amoxicillin-pot clavulanate; kd3 - Home Meds: 19:24 lisinopril 10 mg Oral tab 1 tab once daily [Active]; kd3 - PMHx: 19:24 Hypertensive disorder; kd3 - Immunization history:: Adult Immunizations up to date. - Social history:: Smoking status: Patient denies any tobacco usage or history of. ROS: 19:30 Constitutional: Negative for body aches, chills, fever, poor PO intake. cp 19:30 Eyes: Negative for injury, pain, redness, and discharge. cp 19:30 Cardiovascular: Negative for chest pain. 19:30 Respiratory: Negative for cough, shortness of breath, wheezing. 19:30 Abdomen/GI: Positive for abdominal pain, of the suprapubic area, Negative for vomiting, diarrhea, constipation. 19:30 Back: Positive for flank pain. 19:30 : Positive for urinary symptoms, Negative for vaginal bleeding, vaginal discharge. 19:30 Neuro: Negative for altered mental status, dizziness, headache, weakness. 19:30 All other systems are negative. Exam: 19:40 Constitutional: The patient appears in no acute distress, alert, awake, non-toxic, well cp developed, well nourished, uncomfortable. 19:40 Head/Face: Normocephalic, atraumatic. cp 19:40 Eyes: Periorbital structures: appear normal, Conjunctiva: normal, no exudate, no injection, Sclera: no appreciated abnormality, Lids and lashes: appear normal, bilaterally. 19:40 ENT: External ear(s): are unremarkable, Nose: is normal, Mouth: Lips: moist, Oral mucosa: pink and intact, moist, Posterior pharynx: is normal, airway is patent, no erythema, no exudate. 19:40 Neck: ROM/movement: is normal, is supple, without pain, no range of motions limitations. 19:40 Chest/axilla: Inspection: normal. 19:40 Cardiovascular: Rate: normal, Rhythm: regular. 19:40 Respiratory: the patient does not display signs of respiratory distress, Respirations: normal, no use of accessory muscles, no retractions, labored breathing, is not present, Breath sounds: are clear throughout, no decreased breath sounds, no stridor, no wheezing. 19:40 Abdomen/GI: Inspection: abdomen appears normal, Palpation: soft, in all quadrants, moderate abdominal tenderness, in the suprapubic area, rebound tenderness, is not appreciated. 19:40 Back: pain, that is moderate, of the mid back area, ROM is normal. 19:40 Neuro: Orientation: to person, place \T\ time. Mentation: is normal, Gait: is steady. Vital Signs: 19:22 BP 130 / 97; Pulse 68; Resp 16; Temp 98.2(O); Pulse Ox 100% on R/A; Weight 77.56 kg; kd3 Height 5 ft. 5 in. ; 19:42 BP 136 / 85; Pulse 69; Resp 16; Pulse Ox 99% on R/A; ha1 20:35 BP 132 / 93; Pulse 65; Resp 16; Pulse Ox 98% on R/A; ha1 19:22 Body Mass Index 28.46 (77.56 kg, 165.1 cm) kd3 MDM: 19:11 Patient medically screened. cp 20:00 Differential diagnosis: kidney stone, urinary tract infection, sepsis. cp 20:47 Data reviewed: vital signs, nurses notes, lab test result(s), radiologic studies, CT cp scan. 20:47 Consideration of Admission/Observation Escalation of care including cp admission/observation considered. I considered the following discharge prescriptions or medication management in the emergency department Medications were administered in the Emergency Department. See MAR. Counseling: I had a detailed discussion with the patient and/or guardian regarding: the historical points, exam findings, and any diagnostic results supporting the discharge/admit diagnosis, lab results, radiology results, to return to the emergency department if symptoms worsen or persist or if there are any questions or concerns that arise at home. Response to treatment: the patient's symptoms have markedly improved after treatment, and as a result, I will discharge patient. 01/22 19:21 Order name: Urinalysis W/Microscopic; Complete Time: 20:47 01/22 20:48 Order name: Urine Culture [facility] 01/22 19:23 Order name: CT Stone Protocol; Complete Time: 20:06 01/22 20:07 Interpretation: Report reviewed. cp Administered Medications: 19:35 Drug: Hydrocodone-Acetaminophen PO (7.5 mg-325 mg) 1 tabs Route: PO; ha1 20:35 Follow up: Response: No adverse reaction; Pain is decreased; RASS: Alert and Calm (0) ha1 21:00 Drug: Rocephin (cefTRIAXone) IM 1 grams Route: IM; Site: left ventrogluteal; ha1 21:14 Follow up: Response: No adverse reaction ha1 Disposition Summary: 01/22/23 20:48 Discharge Ordered Location: Home cp Problem: new cp Symptoms: have improved cp Condition: Stable cp Diagnosis - UTI/ Urinary tract infection, site not specified cp Followup: cp - With: Private Physician - When: 1 - 2 days - Reason: Worsening of condition Discharge Instructions: - Discharge Summary Sheet cp - Urinary Tract Infection, Adult cp Forms: - Medication Reconciliation Form cp - Thank You Letter cp - Antibiotic Education cp - Prescription Opioid Use cp Prescriptions: - Pyridium 200 mg Oral Tablet - take 1 tablet by ORAL route every 8 hours for 2 days; 6 tablet; Refills: 0, cp Product Selection Permitted - Zofran 4 mg Oral Tablet - take 1 tablet by ORAL route every 12 hours As needed; 20 tablet; Refills: 0, cp Product Selection Permitted - cefpodoxime 200 mg Oral Tablet - take 1 tablet by ORAL route every 12 hours for 7 days with food; 14 tablet; cp Refills: 0, Product Selection Permitted Signatures: Dispatcher [employer] [facility] Marciano Pearson PA PA cp Doucette, Kyli, RN RN kd3 Dari Carter RN RN ha1
[2023-01-22] MEDS ORDERED: LIDOCAINE 1% MPF 2 ML AMPULE ONE (21:03)
[2023-01-22] MEDS ORDERED: CEFTRIAXONE 1000 MG/VIAL ONE (21:03)
[2023-01-22 21:22] VITALS: TEMP 98.2
[2023-01-22 21:24] VITALS: BP 132/93; O2SAT 98
== END 2023-01-22 21:17 | disposition home or self-care (01) ==
LOC: ER 18:50
DX: N39.0 Urinary tract infection, site not specified (principal); I10 Essential (primary) hypertension; Z88.1 Allergy status to other antibiotic agents
CPT/HCPCS: 87088; 81001; 87086; 76377; 74176; 96372; 99284; J0696

== ENCOUNTER 2023-04-06 10:32 | Emergency (ER) | payer BC ==
--- OUTSIDE RECORDS SUMMARY | 2023-04-06 10:36 | XMS REPORT | Continuity of Care Document ---
:1965 Author Organization [facility] t Address [address] [place] [address] Care Team Providers Name Role Phone Pcp, Patient Does Not Have A Primary Care Physician +[id number] Rossi Warner Attending Clinician Unavailable KARY RUEDA Attending Clinician Unavailable KARY THOMAS Attending Clinician Unavailable TUNDE RDZ Attending Clinician Unavailable Doctor Unassigned, [place] Attending Clinician Unavailable Tunde Rivas Attending Clinician Kodak Nicholson MD Attending Clinician Only, Adc Pob2 Test Attending Clinician Unavailable Gibran Walters DO Attending Clinician GIBRAN WALTERS Attending Clinician Unavailable Rivka RN, Izabela Attending Clinician Unavailable Jose FORD, Elicia Kolb Attending Clinician Unavailable Annmarie Aparicio Attending Clinician ANNMARIE DENSON Attending Clinician Unavailable Swallows, Gal Speech Modified Barium Attending Clinician Jeri carol ann Dover PHD, Yee Rosen Attending Clinician YEE DOVER Attending Clinician Unavailable RODOLFO CARTY Admitting Clinician Unavailable Payers Payer Name Policy Type Policy Number Effective Date Expiration Date S ource Problems Condition Condition Condition Status Onset Resolution Last Treating Co mments Source Name Details Category Date Date Treatment Clinician Date BMI BMI Disease Active 2016-08 Univers 29.0-29.9, 29.0-29.9, 1-10 it y of adult adult 00:00: [place] 00 Medical Branch BMI BMI Disease Active 2016-08 Univers 29.0-29.9, 29.0-29.9, 1-10 it y of adult adult 00:00: [place] 00 Medical Branch Prolapse Prolapse Disease Active 2016-08 Unive rs of female of female 1-10 ity of bladder, bladder, 00:00: [place] acquired acquired 00 Medica l Branch BMI BMI Disease Active 2016-08 Univers 29.0-29.9, 29.0-29.9, 1-10 it y of adult adult 00:00: [place] 00 Medical Branch Prolapse Prolapse Disease Active [place] status 00 Mo dical Branch Essential Essential Disease Active 2014-08 Uni vers hypertensi hypertensi -20 [place] [facility] Contracept Contracept Disease Active 2014-08 U oswaldo márquez yulisa 1-13 [place] management [place] [facility] Acute Acute Disease Active 2014-08 Univers cystitis cystitis -11 ity of without without 00:00: [place] hematuria hematuria [address] [place] [address] [phone] Primary Problem Comm on osteoarthr Spirit itis of - [facility] right knee [facility] Allergies, Adverse Reactions, Alerts Allergy Allergy Status Severity Reaction(s) Onset Inactive Treating Comm ents Source Name Type Date Date Clinician NO KNOWN Drug Active Univers ALLERGIE Class ity of S [facility] Social History Social Habit Start Date Stop Date Quantity Comments Source Sex Assigned At Common Sp anamika - [facility] History of [facility] - Tobacco Use [facility] Exposure to 2022-11-28 2022-12-08 Not sure [facility] SARS-CoV-2 00:00:00 08:18:00 [facility] (event) [place] Alcohol intake 2022-12-08 2022-12-08 0 /d University 00:00:00 00:00:00 [facility] Tobacco use and 2022-11-08 2022-11-08 Smokeless tobacco Un iversity of exposure 00:00:00 00:00:00 non-user [facility] Smoking Status Start Date Stop Date Source Never smoked tobacco [facility] Medications Ordered Filled Start Stop Current Ordering Indication Dosage Frequency Signature Comments Components Source Medication Medication Date Date Medication? Clinician (SIG) Name Name diclofenac 2022- No [id number] 75mg Take 1 Univers 75 mg EC 4- 05-05 tablet by ity o f tablet 00:00: 04:59 mouth 2 [place] 00 :00 (two) Medical times [place] daily with meals for 30 days. diclofenac 2022- No [id number] 75mg Take 1 Univers 75 mg EC 4-04 05-05 tablet by ity o f tablet 00:00: 04:59 mouth 2 [place] 00 :00 (two) Medical times [place] daily with meals for 30 days. diclofenac 2022- No [id number] 75mg Take 1 Univers 75 mg EC 4- 05-05 tablet by ity o f tablet 00:00: 04:59 mouth 2 [place] 00 :00 (two) Medical times Branch daily with meals for 30 days. diclofenac 2022-0 3- No [id number] 75mg Take 1 Univers 75 mg EC 4-04 05-05 tablet by ity o f tablet 00:00: 04:59 mouth 2 [place] 00 :00 (two) Medical times Branch daily with meals for 30 days. diclofenac 2022-0 2023- No [id number] 75mg Take 1 Univers 75 mg EC 4-04 05-05 tablet by ity o f tablet 00:00: 04:59 mouth 2 [place] 00 :00 (two) Medical times Branch daily with meals for 30 days. diclofenac 2022-0 3- No [id number] 75mg Take 1 Univers 75 mg EC 4-04 05-05 tablet by ity o f tablet 00:00: 04:59 mouth 2 [place] 00 :00 (two) Medical times Branch daily with meals for 30 days. diclofenac 2022-0 3- No [id number] 75mg Take 1 Univers 75 mg EC 4-04 05-05 tablet by ity o f tablet 00:00: 04:59 mouth 2 [place] 00 :00 (two) Medical times Branch daily with meals for 30 days. diclofenac 2022-0 3- No [id number] 75mg Take 1 Univers 75 mg EC 4-04 05-05 tablet by ity o f tablet 00:00: 04:59 mouth 2 [place] 00 :00 (two) Medical times Branch daily with meals for 30 days. diclofenac 2022-0 3- No [id number] 75mg Take 1 Univers 75 mg EC 4-04 05-05 tablet by ity o f tablet 00:00: 04:59 mouth 2 [place] 00 :00 (two) Medical times Branch daily with meals for 30 days. diclofenac 2022-0 3- No [id number] 75mg Take 1 Univers 75 mg EC 4-04 05-05 tablet by ity o f tablet 00:00: 04:59 mouth 2 [place] 00 :00 (two) Medical times Branch daily with meals for 30 days. Bupivicaine Bupivicaine 2021-0 No 5mg Common [place] 8-30 Spirit 00:00: - [facility] Kenalog Kenalog 2021-0 No 40mg Common (Triamcinol (Triamcinol 8-30 S pirit one) one) 00:00: - [facility] Bupivicaine Bupivicaine 2021-0 No 5mg Common [place] 8-30 Spirit 00:00: - CHI 00 [facility] Kenalog Kenalog 2021-0 No 40mg Common (Triamcinol (Triamcinol 8-30 S pirit one) one) 00:00: - CHI 00 [facility] Bupivicaine Bupivicaine 2021-0 No 5mg Common [place] 8-30 Spirit 00:00: - [facility]I 00 [facility] Kenalog Kenalog 2021-0 No 40mg Common (Triamcinol (Triamcinol 8-30 S pirit one) one) 00:00: - [facility]I 00 [facility] pantoprazol 2020-0 Yes [id number] 40mg Take 1 Univers e 40 mg EC 6-22 tablet by ity of tablet 00:00: mouth [place] 00 daily. Medical Branch pantoprazol 2020-0 Yes [id number] 40mg Take 1 Univers e 40 mg EC 6-22 tablet by ity of tablet 00:00: mouth [place] 00 daily. Medical Branch pantoprazol 2020-0 Yes [id number] 40mg Take 1 Univers e 40 mg EC 6-22 tablet by ity of tablet 00:00: mouth [place] 00 daily. Medical Branch pantoprazol 2020-0 Yes [id number] 40mg Take 1 Univers e 40 mg EC 6-22 tablet by ity of tablet 00:00: mouth [place] 00 daily. Medical Branch pantoprazol 2020-0 Yes [id number] 40mg Take 1 Univers e 40 mg EC 6-22 tablet by ity of tablet 00:00: mouth [place] 00 daily. Medical Branch pantoprazol 2020-0 Yes [id number] 40mg Take 1 Univers e 40 mg EC 6-22 tablet by ity of tablet 00:00: mouth [place] 00 daily. Medical Branch pantoprazol 2020-0 Yes [id number] 40mg Take 1 Univers e 40 mg EC 6-22 tablet by ity of tablet 00:00: mouth [place] 00 daily. Medical Branch pantoprazol 2020-0 Yes [id number] 40mg Take 1 Univers e 40 mg EC 6-22 tablet by ity of tablet 00:00: mouth [place] 00 daily. Medical Branch pantoprazol 2020-0 Yes [id number] 40mg Take 1 Univers e 40 mg EC 6-22 tablet by ity of tablet 00:00: mouth [place] 00 daily. Medical Branch pantoprazol 2020-0 Yes [id number] 40mg Take 1 Univers e 40 mg EC 6-22 tablet by ity of tablet 00:00: mouth [place] 00 daily. Medical Branch pantoprazol 2020-0 Yes [id number] 40mg Take 1 Univers e 40 mg EC 6-22 tablet by ity of tablet 00:00: mouth [place] 00 daily. Medical Branch pantoprazol 2020-0 Yes [id number] 40mg Take 1 Univers e 40 mg EC 6-22 tablet by ity of tablet 00:00: mouth [place] 00 daily. Medical Branch pantoprazol 2020-0 Yes [id number] 40mg Take 1 Univers e 40 mg EC 6-22 tablet by ity of tablet 00:00: mouth [place] 00 daily. Medical Branch pantoprazol 2020-0 Yes [id number] 40mg Take 1 Univers e 40 mg EC 6-22 tablet by ity of tablet 00:00: mouth [place] 00 daily. Medical Branch pantoprazol 2020-0 Yes [id number] 40mg Take 1 Univers e 40 mg EC 6-22 tablet by ity of tablet 00:00: mouth [place] 00 daily. Medical Branch pantoprazol 2020-0 Yes [id number] 40mg Take 1 Univers e 40 mg EC 6-22 tablet by ity of tablet 00:00: mouth [place] 00 daily. Medical Branch pantoprazol 2020-0 Yes [id number] 40mg Take 1 Univers e 40 mg EC 6-22 tablet by ity of tablet 00:00: mouth [place] 00 daily. Medical Branch pantoprazol 2020-0 Yes [id number] 40mg Take 1 Univers e 40 mg EC 6-22 tablet by ity of tablet 00:00: mouth [place] 00 daily. Medical Branch pantoprazol 2020-0 Yes [id number] 40mg Take 1 Univers e 40 mg EC 6-22 tablet by ity of tablet 00:00: mouth [place] 00 daily. Medical Branch pantoprazol 2020-0 Yes [id number] 40mg Take 1 Univers e 40 mg EC 6-22 tablet by ity of tablet 00:00: mouth [place] 00 daily. Medical Branch pantoprazol 2020-0 Yes [id number] 40mg Take 1 Univers e 40 mg EC 6-22 tablet by ity of tablet 00:00: mouth [place] 00 daily. Medical Branch pantoprazol 2020-0 Yes [id number] 40mg Take 1 Univers e 40 mg EC 6-22 tablet by ity of tablet 00:00: mouth [place] 00 daily. Medical Branch pantoprazol 2019-0 Yes [id number] 40mg Take 1 Univers e 40 mg EC 6-22 tablet by ity of tablet 00:00: mouth [place] 00 daily. Medical Branch traMADOL 2018-0 Yes [id number] 50mg Take 1 Uni vers (ULTRAM) 50 3-10 tablet by ity of mg tablet 00:00: mouth [place] 00 every 6 Medical (six) Branch hours as needed for Pain (scale 7-10). clindamycin 2018-0 Yes [id number] 300mg Take 1 Univers 300 mg 3-10 capsule by ity of capsule 00:00: mouth (three) Medical times Branch daily. traMADOL 2018-0 Yes [id number] 50mg Take 1 Uni vers (ULTRAM) 50 3-10 tablet by ity of mg tablet 00:00: mouth 00 every 6 Medical (six) Branch hours as needed for Pain (scale 7-10). clindamycin 2018-0 Yes [id number] 300mg Take 1 Univers 300 mg 3-10 capsule by ity of capsule 00:00: mouth (three) Medical times Branch daily. traMADOL 2018-0 Yes [id number] 50mg Take 1 Uni vers (ULTRAM) 50 3-10 tablet by ity of mg tablet 00:00: mouth [place] 00 every 6 Medical (six) Branch hours as needed for Pain (scale 7-10). clindamycin 2019-0 Yes [id number] 300mg Take 1 Univers 300 mg 3-10 capsule by ity of capsule 00:00: mouth (three) Medical times Branch daily. traMADOL 2018-0 Yes [id number] 50mg Take 1 Uni vers (ULTRAM) 50 3-10 tablet by ity of mg tablet 00:00: mouth [place] 00 every 6 Medical (six) Branch hours as needed for Pain (scale 7-10). clindamycin 2019-0 Yes [id number] 300mg Take 1 Univers 300 mg 3-10 capsule by ity of capsule 00:00: mouth 3 (three) Medical times Branch daily. traMADOL 2019-0 Yes [id number] 50mg Take 1 Uni vers (ULTRAM) 50 3-10 tablet by ity of mg tablet 00:00: mouth [place] 00 every 6 Medical (six) Branch hours as needed for Pain (scale 7-10). clindamycin 2019-0 Yes [id number] 300mg Take 1 Univers 300 mg 3-10 capsule by ity of capsule 00:00: mouth (three) Medical times Branch daily. traMADOL 2019-0 Yes [id number] 50mg Take 1 Uni vers (ULTRAM) 50 3-10 tablet by ity of mg tablet 00:00: mouth [place] 00 every 6 Medical (six) Branch hours as needed for Pain (scale 7-10). clindamycin 2019-0 Yes [id number] 300mg Take 1 Univers 300 mg 3-10 capsule by ity of capsule 00:00: mouth (three) Medical times Branch daily. traMADOL 2019-0 Yes [id number] 50mg Take 1 Uni vers (ULTRAM) 50 3-10 tablet by ity of mg tablet 00:00: mouth 00 every 6 Medical (six) Branch hours as needed for Pain (scale 7-10). clindamycin 2019-0 Yes [id number] 300mg Take 1 Univers 300 mg 3-10 capsule by ity of capsule 00:00: mouth (three) Medical times Branch daily. traMADOL 2019-0 Yes [id number] 50mg Take 1 Uni vers (ULTRAM) 50 3-10 tablet by ity of mg tablet 00:00: mouth 00 every 6 Medical (six) Branch hours as needed for Pain (scale 7-10). clindamycin 2019-0 Yes [id number] 300mg Take 1 Univers 300 mg 3-10 capsule by ity of capsule 00:00: mouth (three) Medical times Branch daily. traMADOL 2019-0 Yes [id number] 50mg Take 1 Uni vers (ULTRAM) 50 3-10 tablet by ity of mg tablet 00:00: mouth [place] 00 every 6 Medical (six) Branch hours as needed for Pain (scale 7-10). traMADOL 2019-0 Yes [id number] 50mg Take 1 Uni vers (ULTRAM) 50 3-10 tablet by ity of mg tablet 00:00: mouth [place] 00 every 6 Medical (six) Branch hours as needed for Pain (scale 7-10). clindamycin 2019-0 Yes [id number] 300mg Take 1 Univers 300 mg 3-10 capsule by ity of capsule 00:00: mouth (three) Medical times Branch daily. clindamycin 2019-0 Yes [id number] 300mg Take 1 Univers 300 mg 3-10 capsule by ity of capsule 00:00: mouth (three) Medical times Branch daily. traMADOL 2019-0 Yes [id number] 50mg Take 1 Uni vers (ULTRAM) 50 3-10 tablet by ity of mg tablet 00:00: mouth [place] 00 every 6 Medical (six) Branch hours as needed for Pain (scale 7-10). clindamycin 2019-0 Yes [id number] 300mg Take 1 Univers 300 mg 3-10 capsule by ity of capsule 00:00: mouth (three) Medical times Branch daily. traMADOL 2019-0 Yes [id number] 50mg Take 1 Uni vers (ULTRAM) 50 3-10 tablet by ity of mg tablet 00:00: mouth 00 every 6 Medical (six) Branch hours as needed for Pain (scale 7-10). clindamycin 2019-0 Yes [id number] 300mg Take 1 Univers 300 mg 3-10 capsule by ity of capsule 00:00: mouth (three) Medical times Branch daily. traMADOL 2019-0 Yes [id number] 50mg Take 1 Uni vers (ULTRAM) 50 3-10 tablet by ity of mg tablet 00:00: mouth 00 every 6 Medical (six) Branch hours as needed for Pain (scale 7-10). clindamycin 2019-0 Yes [id number] 300mg Take 1 Univers 300 mg 3-10 capsule by ity of capsule 00:00: mouth (three) Medical times Branch daily. traMADOL 2019-0 Yes [id number] 50mg Take 1 Uni vers (ULTRAM) 50 3-10 tablet by ity of mg tablet 00:00: mouth [place] 00 every 6 Medical (six) Branch hours as needed for Pain (scale 7-10). clindamycin 2019-0 Yes [id number] 300mg Take 1 Univers 300 mg 3-10 capsule by ity of capsule 00:00: mouth (three) Medical times Branch daily. traMADOL 2019-0 Yes [id number] 50mg Take 1 Uni vers (ULTRAM) 50 3-10 tablet by ity of mg tablet 00:00: mouth [place] 00 every 6 Medical (six) Branch hours as needed for Pain (scale 7-10). clindamycin 2019-0 Yes [id number] 300mg Take 1 Univers 300 mg 3-10 capsule by ity of capsule 00:00: mouth 3 (three) Medical times Branch daily. traMADOL 2019-0 Yes [id number] 50mg Take 1 Uni vers (ULTRAM) 50 3-10 tablet by ity of mg tablet 00:00: mouth [place] 00 every 6 Medical (six) Branch hours as needed for Pain (scale 7-10). clindamycin 2019-0 Yes [id number] 300mg Take 1 Univers 300 mg 3-10 capsule by ity of capsule 00:00: mouth 3 00 (three) Medical times Branch daily. traMADOL 2019-0 Yes [id number] 50mg Take 1 Uni vers (ULTRAM) 50 3-10 tablet by ity of mg tablet 00:00: mouth [place] 00 every 6 Medical (six) Branch hours as needed for Pain (scale 7-10). clindamycin 2019-0 Yes [id number] 300mg Take 1 Univers 300 mg 3-10 capsule by ity of capsule 00:00: mouth (three) Medical times Branch daily. traMADOL 2019-0 Yes [id number] 50mg Take 1 Uni vers (ULTRAM) 50 3-10 tablet by ity of mg tablet 00:00: mouth [place] 00 every 6 Medical (six) Branch hours as needed for Pain (scale 7-10). clindamycin 2019-0 Yes [id number] 300mg Take 1 Univers 300 mg 3-10 capsule by ity of capsule 00:00: mouth (three) Medical times Branch daily. traMADOL 2019-0 Yes [id number] 50mg Take 1 Uni vers (ULTRAM) 50 3-10 tablet by ity of mg tablet 00:00: mouth [place] 00 every 6 Medical (six) Branch hours as needed for Pain (scale 7-10). clindamycin 2019-0 Yes [id number] 300mg Take 1 Univers 300 mg 3-10 capsule by ity of capsule 00:00: mouth (three) Medical times Branch daily. traMADOL 2019-0 Yes [id number] 50mg Take 1 Uni vers (ULTRAM) 50 3-10 tablet by ity of mg tablet 00:00: mouth [place] 00 every 6 Medical (six) Branch hours as needed for Pain (scale 7-10). clindamycin 2019-0 Yes [id number] 300mg Take 1 Univers 300 mg 3-10 capsule by ity of capsule 00:00: mouth 3 00 (three) Medical times Branch daily. traMADOL 2019-0 Yes [id number] 50mg Take 1 Uni vers (ULTRAM) 50 3-10 tablet by ity of mg tablet 00:00: mouth [place] 00 every 6 Medical (six) Branch hours as needed for Pain (scale 7-10). clindamycin 2019-0 Yes [id number] 300mg Take 1 Univers 300 mg 3-10 capsule by ity of capsule 00:00: mouth 3 00 (three) Medical times Branch daily. traMADOL 2019-0 Yes [id number] 50mg Take 1 Uni vers (ULTRAM) 50 3-10 tablet by ity of mg tablet 00:00: mouth [place] 00 every 6 Medical (six) Branch hours as needed for Pain (scale 7-10). clindamycin 2019-0 Yes [id number] 300mg Take 1 Univers 300 mg 3-10 capsule by ity of capsule 00:00: mouth 3 00 (three) Medical times Branch daily. traMADOL 2019-0 Yes [id number] 50mg Take 1 Uni vers (ULTRAM) 50 3-10 tablet by ity of mg tablet 00:00: mouth [place] 00 every 6 Medical (six) Branch hours as needed for Pain (scale 7-10). clindamycin 2019-0 Yes [id number] 300mg Take 1 Univers 300 mg 3-10 capsule by ity of capsule 00:00: mouth 3 00 (three) Medical times Branch daily. traMADOL 2019-0 Yes [id number] 50mg Take 1 Uni vers (ULTRAM) 50 3-10 tablet by ity of mg tablet 00:00: mouth [place] 00 every 6 Medical (six) Branch hours as needed for Pain (scale 7-10). clindamycin 2019-0 Yes [id number] 300mg Take 1 Univers 300 mg 3-10 [...] 00:00: mouth [place] 00 every Medical morning. [place] hydroCHLORO 2016-08 Yes 25mg Take 1 Univ [...] 00:00: mouth [place] 00 every Medical morning. [place] Lisinopril/ Lisinopril/ No Lisinopril HCTZ HCTZ /HCTZ Lisinopril/ Lisinopril/ No Lisinopril HCTZ HCTZ /HCTZ Lisinopril/ Lisinopril/ No Lisinopril HCTZ HCTZ /HCTZ Immunizations Ordered Filled Immunization Date Status Comments [facility] e Immunization Name Name TDAP (ADACEL) 2015-02-04 Completed [place] of VACCINE 00:00:00 [facility] TDAP (ADACEL) 2015-02-04 Completed University of VACCINE 00:00:00 [place] [facility] TDAP (ADACEL) 2015-02-04 Completed University of VACCINE 00:00:00 [place] [facility] TDAP (ADACEL) 2015-02-04 Completed University of VACCINE 00:00:00 [place] [facility] TDAP (ADACEL) 2015-02-04 Completed University of VACCINE 00:00:00 [place] [facility] TDAP (ADACEL) 2015-02-04 Completed University of VACCINE 00:00:00 [place] [facility] TDAP (ADACEL) 2015-02-04 Completed University of VACCINE 00:00:00 [place] [facility] TDAP (ADACEL) 2015-02-04 Completed University of VACCINE 00:00:00 [facility] Branch TDAP (ADACEL) 2015-02-04 Completed University of VACCINE 00:00:00 [facility] Branch TDAP (ADACEL) 2015-02-04 Completed University of VACCINE 00:00:00 [facility] Branch TDAP (ADACEL) 2015-02-04 Completed University of VACCINE 00:00:00 [facility] Branch TDAP (ADACEL) 2015-02-04 Completed University of VACCINE 00:00:00 [facility] Branch TDAP (ADACEL) 2015-02-04 Completed University of VACCINE 00:00:00 [facility] Branch TDAP (ADACEL) 2015-02-04 Completed University of VACCINE 00:00:00 [facility] Branch TDAP (ADACEL) 2015-02-04 Completed University of VACCINE 00:00:00 [facility] Branch TDAP (ADACEL) 2015-02-04 Completed University of VACCINE 00:00:00 [facility] Branch TDAP (ADACEL) 2015-02-04 Completed University of VACCINE 00:00:00 [facility] Branch TDAP (ADACEL) 2015-02-04 Completed University of VACCINE 00:00:00 [facility] Branch TDAP (ADACEL) 2015-02-04 Completed University of VACCINE 00:00:00 [facility] Branch TDAP (ADACEL) 2015-02-04 Completed University of VACCINE 00:00:00 [place] [facility] TDAP (ADACEL) 2015-02-04 Completed University of VACCINE 00:00:00 [place] [facility] TDAP (ADACEL) 2015-02-04 Completed University of VACCINE 00:00:00 [place] [facility] TDAP (ADACEL) 2015-02-04 Completed University of VACCINE 00:00:00 [place] [facility] TDAP (ADACEL) 2015-02-04 Completed University of VACCINE 00:00:00 [facility] Vital Signs Vital Name Observation Time Observation Value Comments Source Body height 2022-12-08 13:31:00 165.1 cm [facility] Body weight 2022-12-08 13:31:00 75.297 kg Universi ty [facility] BMI 2022-12-08 13:31:00 27.62 kg/m2 Universi [facility] [place] [facility] Systolic blood 2022-11-08 18:02:00 118 mm[Hg] Univer sity of [facility] Diastolic blood 2022-11-08 18:02:00 77 mm[Hg] Unive rsity of [facility] Heart rate 2022-11-08 18:02:00 80 /min Universi [facility] Body height 2022-11-08 18:02:00 165.1 cm Universi [facility] [place] [facility] Body weight 2022-11-08 18:02:00 75.479 kg [facility] BMI 2022-11-08 18:02:00 27.69 kg/m2 [facility] height 2022-05-10 15:00:00 65 [in_i] Common [facility] weight 2022-05-10 15:00:00 159 [lb_av] [facility] temperature 2022-05-10 15:00:00 98.1 [degF] Common [facility] bmi 2022-05-10 15:00:00 26.46 kg/m2 Common S pirit [facility] blood pressure 2022-05-10 15:00:00 114 mm[Hg] [facility] - systolic [facility] blood pressure 2022-05-10 15:00:00 70 mm[Hg] [facility] - diastolic [facility] height 2022-04-05 10:30:00 65 [in_i[facility] weight 2022-04-05 10:30:00 159 [lb_av] [facility] temperature 2022-04-05 10:30:00 97.6 [degF] [facility] bmi 2022-04-05 10:30:00 26.46 kg/m2 Common S pirit - [facility] blood pressure 2022-04-05 10:30:00 126 mm[Hg] [facility] - systolic [facility] blood pressure 2022-04-05 10:30:00 84 mm[Hg] [facility] - diastolic [facility] Systolic blood 2020-01-27 15:55:00 126 mm[Hg] Univer sity of pressure [facility] Diastolic blood 2020-01-27 15:55:00 89 mm[Hg] Unive rsity of pressure [facility] Heart rate 2020-01-27 15:55:00 83 /min Universi ty of [facility] Body temperature 2020-01-27 15:55:00 36.33 Rossi Univ ersity of [facility] Body height 2020-01-27 15:55:00 165.1 cm Universi ty of [facility] Body weight 2020-01-27 15:55:00 87.907 kg Universi ty of [facility] BMI 2020-01-27 15:55:00 32.25 kg/m2 Universi ty of [facility] Branch Systolic blood 2020-01-27 15:55:00 126 mm[Hg] Univer sity of pressure [facility] Diastolic blood 2020-01-27 15:55:00 89 mm[Hg] Unive rsity of pressure [facility] Heart rate 2020-01-27 15:55:00 83 /min Universi ty of [facility] Body temperature 2020-01-27 15:55:00 36.33 Rossi Univ ersity of [facility] Body height 2020-01-27 15:55:00 165.1 cm Universi ty of [place] [facility] [place] Body weight 2020-01-27 15:55:00 87.907 kg Universi ty of [place] [facility] BMI 2020-01-27 15:55:00 32.25 kg/m2 [facility]i ty of [place] [facility] Procedures Procedure Date / Time Performing Clinician Source Performed AUTHORIZATION FOR 2022-12-19 05:01:00 Doctor Unassigned, No [facility] [place] RELEASE OF PHI Name Medical Branch REFERRAL- 2022-11-02 05:01:00 Doctor Unassigned, No [facility] [place] REQUEST/RESPONSE Name Medical Branch WORKERS COMPENSATION 2022-10-14 06:01:00 [facility]igned, No [facility] [place] Name Medical Branch EXTERNAL PROVIDER 2021-02-17 05:01:00 Doctor Unassigned, No Univ ersity [facility] RECORDS Name Medical Branch EXTERNAL PROVIDER 2020-03-02 05:01:00 Doctor Unassigned, No [facility] Branch ASSIGNMENT OF BENEFITS 2020-01-27 15:36:07 Doctor Unassigned, No [facility] Name Medical Branch Encounters Start End Encounter Admission Attending Care Care Encounter Source Date/Time Date/Time Type Type Clinicians Facility Department ID 2022-05-10 Outpatient YAEL Warner [facility] [id number] Common 13:46:02 [facility] 2022-05-[address] [facility] [id number] Common 11:56:01 [facility] 2022-04-[address] [facility] [id number] Common 09:34:01 Rossi [address] [facility] 2022-04-05 [facility] [id number] Common 10:41:01 [facility] 2023-01-29 2023-01-29 Outpatient MARYBETH, [facility] JAVIER [address] [facility] 01:50:00 23:59:00 KARY 2023-01-28 2023-01-29 Emergency E MARTHA, [facility] [id number] [facility] 23:32:00 08:12:00 KARY 2022-12-19 2022-12-19 Orders Doctor ECHOLS 1.2.840.114 [id number] Univers 00:00:00 00:00:00 Only Unassigned, EUNICE 350.1.13.10 [facility] 4.2.7.2.686 Isaías as [phone] [place] [address] [address] 2022-12-08 2022-12-08 Office KEYSHAWN Rdz 1.2.840.114 [id number] Univers 08:45:00 09:00:00 Visit [facility] 350.1.13.10 it y of [place] 4.2.7.2.686 Isaías as MIREYA?BLEA [phone] Me annette ALCANTARA 198 [facility] OFFICE [facility] 2022-12-08 2022-12-08 Outpatient R KAJAL [facility] [id number] Univers 08:45:00 08:45:00 [facility]-21 2022-11-21 Telephone [facility] 1.2.840.114 [id number] Univers 00:00:00 00:00:00 Kodak L HEALTH 350.1.13.10 it y of [place] 4.2.7.2.686 Isaías as MIREYA?BLEA [phone] Mo annette ALCANTARA 198 [facility] OFFICE [facility] 2022-11-18 2022-11-18 Telephone [facility] [id number] Univers 00:00:00 00:00:00 Tunde S HEALTH 350.1.13.10 it y of [place] 4.2.7.2.686 Isaías as MIREYA?BLEA [phone] Mo annette ALCANTARA [address] [place] [address] 2022-11-10 2022-11-10 Telephone [facility] [id number] Univers 00:00:00 00:00:00 Tunde S HEALTH 350.1.13.10 it y of [place] 4.2.7.2.686 Isaías as MIREYA?BLEA [phone] Mo annette ALCANTARA 198 [facility] 2022-11-08 2022-11-08 Outpatient Maribell RDZ [facility] [id number] Univers 13:00:00 14:03:14 [facility] 2022-11-08 2022-11-08 Office [facility] 1.2.840.114 [id number] Univers 13:00:00 14:03:14 Visit Tunde S HEALTH 350.1.13.10 it y of [place] 4.2.7.2.686 Isaías as MIREYA?BLEA [phone] Mo annette ALCANTARA 198 [facility] OFFICE [facility] 2022-11-08 2022-11-08 Telephone [facility] [id number] Univers 00:00:00 00:00:00 [facility] 350.1.13.10 it y of [place] 4.2.7.2.686 Isaías as MIREYA?BLEA [phone] Mo dical KNEY [address] [facility] 2022-11-02 2022-11-02 Orders Doctor ONESIMO 1.2.840.114 [id number] Univers 00:00:00 00:00:00 Only Unassigned, EUNICE 350.1.13.10 [place] of [place] [facility] 4.2.7.2.686 Isaías as [phone] [address] 2022-10-14 2022-10-14 Orders Doctor ONESIMO 1.2.840.114 [id number] Univers 00:00:00 00:00:00 Only Unassigned, EUNICE 350.1.13.10 ity of [place] [facility] 4.2.7.2.686 Isaías as [phone] [address] 2022-05-10 2022-05-10 OFFICE STLMLC STLMLC [id number] Co mmon 00:00:00 00:00:00 VISIT EST Spir it PT LEVEL 3 - [facility] 2022-04-05 2022-04-05 OFFICE STLMLC STLMLC [id number] Co mmon 00:00:00 00:00:00 VISIT NEW Spir it PT LEVEL 4 - [facility] 2021-09-01 2021-09-01 Laboratory Only, Adc Pob2 Test [facility] 1.2 .840.114 [id number] Univers 11:00:00 11:15:00 Only Gibran Walters 350.1.13 .10 ity of [place]2.7.2.[place] PROF[place] [phone] Mo dical NAL 225 [facility] 2021-09-01 2021-09-01 Outpatient R SELENA [facility] [id number] Univers 11:00:00 11:05:11 GIBRAN [facility] 2021-09-01 2021-09-01 Telephone ONESIMO Tineo 1.2.413.625 [id number] Univers 00:00:00 00:00:00 Izabela DAWSON 350.1.13.10 it y of HOSPITAL 4.2.7.2.686 Isaías as [phone] [facility] [address] 2021-08-30 2021-08-30 Outpatient R SELENA [facility] [id number] Univers 10:30:00 10:41:00 GIBRAN itmarley of [facility] 2021-08-30 2021-08-30 Laboratory Only, Adc Pob2 Test [facility] 1.2 .840.114 [id number] Univers 10:30:00 10:41:00 Only Gibran Walters 350.1.13 .10 ity of [place].2.[place] [phone] Mo dic[address] 2021-08-30 2021-08-30 Letter ONESIMO Garcia 1.2.840.114 [id number] Univers 00:00:00 00:00:00 (Out) Elicia DAWSON 350.1.13.10 it y of HOSPITAL 4.2.7.2.686 Isaías as [phone] [facility] [address] 2021-02-17 2021-02-17 Orders Doctor ONESIMO 1.2.840.114 [id number] Univers 00:00:00 00:00:00 Only Unassigned, EUNICE 350.1.13.10 [place] of [place] [facility] 4.2.7.2.686 Isaías as [phone] [facility] [address] 2021-02-09 2021-02-09 Telephone ANABELLA Denson 1.2.840.114 [id number] Univers 00:00:00 00:00:00 Annmarie Santiago Y HEALTH 350.1.13.10 ity of [place].2.[place] [phone] [facility] [address] 2020-03-02 2020-03-02 Orders Doctor ONESIMO 1.2.840.114 [id number] Univers 00:00:00 00:00:00 Only Unassigned, EUNICE 350.1.13.10 [place]y of [place] [facility] 4.2.7.2.686 Isaías as [phone] [address] 2020-03-02 2020-03-02 Orders Doctor ONESIMO 1.2.840.114 [id number] 00:00:00 00:00:00 Only Unassigned, EUNICE 350.1.13.10 [place] [facility] [id number] 009 2020-02-24 2020-02-24 [facility] [id number] Univers 10:30:00 10:30:00 ANNMARIE whitman o f [facility] 2020-02-13 2020-02-13 Ancillary Swallows, Gal Speech Modifie d Barium UNIVERSIT 1.2.840.114 [id number] Univers 11:00:12 11:30:12 Visit DoverYee 350.1.13.10 ity of NATIONAL 4.2.7.2.686 Isaías as BANK [phone] [address] 2020-02-13 2020-02-13 Ancillary Swallows, UNIVERSIT 1.2.840.114 [id number] 11:00:12 11:30:12 Visit Gal Speech Y 350.1.13.10 Modified NATIONAL 4.2.7.2.686 Barium BANK [phone] [facility] 145 2020-02-13 2020-02-13 Out[facility] [id number] Univers 09:00:00 09:00:00 YEE [facility] 2020-01-27 2020-01-27 [facility] [id number] [facility] 10:43:44 11:39:23 Visit Annmarie E Y HEALTH 350.1.13.10 ity of [place]2.[place] [phone] [address] 2020-01-27 2020-01-27 Office Jarett, [facility] [id number] [id number] 10:43:44 11:39:23 Visit Annmarie E Y HEALTH 350.1.13.10 CLINICS 4.2.7.2.686 [phone] [facility] 2020-01-27 2020-01-27 Outpatient Maribell [facility] [id number] Univers 10:30:00 10:30:00 ANNMARIE whitman o f [facility] 2020-01-27 2020-01-27 Orders Doctor ONESIMO 1.2.840.114 [id number] Univers 00:00:00 00:00:00 Only Unassigned, EUNICE 350.1.13.10 ity of [place] [facility] 4.2.7.2.686 Isaías as [phone] [facility] [address] Results This patient has no known results.
[2023-04-06] MEDS ORDERED: IBUPROFEN 200 MG TAB PO ONE (11:00)
[2023-04-06] MEDS ORDERED: IBUPROFEN 400 MG TAB ONE (11:00)
--- NOTE | 2023-04-06 12:19 | RAD REPORT ---
EXAM DESCRIPTION: Kitty Johnson And Lat (2 Views)04/06/2023 12:00 pm CLINICAL HISTORY: Cough COMPARISON: October 2022 FINDINGS: The lungs appear clear of acute infiltrate. The heart is normal size IMPRESSION: No acute abnormalities displayed
--- NOTE | 2023-04-06 13:34 | ER ---
Nurse's Notes [facility] Name: Mi Ortiz Age: 57 yrs Sex: Female : 1965 Arrival Date: 04/06/2023 Time: 10:32 Bed 10 Private MD: Diagnosis: Acute upper respiratory infection, unspecified;Elevated blood-pressure reading, without diagnosis of hypertension Presentation: 04/06 10:43 Chief complaint: Patient states: Cough, body aches, QUINN, facial pain for 2 days. ll1 Coronavirus screen: Client denies travel out of the [place] in the last 14 days. cough unrelated to allergies, fatigue, fever, headache, muscle pain, Client presents with at least one sign or symptom that may indicate coronavirus-19. Standard/surgical mask placed on the client. Ebola Screen: Patient denies travel to an Ebola-affected area in the 21 days before illness onset. Initial Sepsis Screen: Does the patient meet any 2 criteria? No. Patient's initial sepsis screen is negative. Does the patient have a suspected source of infection? Yes: Productive cough/pneumonia. Risk Assessment: Do you want to hurt yourself or someone else? Patient reports no desire to harm self or others. Onset of symptoms was April 05, 2023. 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 - Social history:: Smoking status: Patient denies any tobacco usage or history of. Screenin:34 [facility] ED Fall Risk Assessment (Adult) History of falling in the last 3 months, mb9 including since admission No falls in past 3 months (0 pts) Confusion or Disorientation No (0 pts) Intoxicated or Sedated No (0 pts) Impaired Gait No (0 pts) Mobility Assist Device Used No (0 pt) Altered Elimination No (0 pt) Score/Fall Risk Level 0 - 2 = Low Risk Oriented to surroundings, Maintained a safe environment, Educated pt \T\ family on fall prevention, incl call for assistance when getting out of bed. Abuse screen: Denies threats or abuse. Nutritional screening: No deficits noted. Tuberculosis screening: No symptoms or risk factors identified. Assessment: 10:53 Reassessment: No changes from previously documented assessment. Patient and/or family ll1 updated on plan of care and expected duration. Pain level reassessed. Patient is alert, oriented x 3, equal unlabored respirations, skin warm/dry/pink. 13:37 Reassessment: Patient and/or family updated on plan of care and expected duration. Pain mb9 level reassessed. Patient is alert, oriented x 3, equal unlabored respirations, skin warm/dry/pink. Patient states feeling better. Patient states symptoms have improved. Vital Signs: 10:43 BP 156 / 91; Pulse 84; Resp 17; Temp 99.7; Pulse Ox 97% on R/A; Weight 77.11 kg; Height ll1 5 ft. 5 in. ; Pain 10/10; 13:34 BP 142 / 84; Pulse 88; Resp 18; Pulse Ox 100% on R/A; mb9 10:43 Body Mass Index 28.29 (77.11 kg, 165.1 cm) ll1 10:43 Pain Scale: Adult ll1 ED Course: 10:34 Patient arrived in ED. rg4 10:36 Alphonso Wray DO is Attending Physician. ms3 10:45 Triage completed. ll1 10:46 Arm band placed on. ll1 10:46 Patient placed in an exam room, on a stretcher. ll1 10:53 Lala Kim, LOGAN is Primary Nurse. ll1 10:53 COVID-19 SARS RT PCR Sent. ll1 12:02 Chest Pa And Lat (2 Views) XRAY In Process Unspecified. EDMS 13:34 Placed in gown. Bed in low position. Call light in reach. Side rails up X 1. Client mb9 placed on continuous cardiac and pulse oximetry monitoring. NIBP monitoring applied. 13:34 No provider procedures requiring assistance completed. Patient did not have IV access mb9 during this emergency room visit. Administered Medications: 10:53 Drug: Ibuprofen PO 600 mg Route: PO; ll1 12:11 Follow up: Response: No adverse reaction mb9 Medication: 13:34 VIS not applicable for this client. mb9 Outcome: 13:33 Discharge ordered by . ms3 13:37 Discharged to home ambulatory. mb9 13:37 Condition: stable 13:37 Discharge instructions given to patient, Instructed on discharge instructions, follow up and referral plans. Demonstrated understanding of instructions, follow-up care. 13:37 Patient left the ED. mb9 Signatures: Dispatcher [employer] Supriya Rm4 Lala Kim RN RN ll1 Alphonso Wray DO DO ms3 Wendy Michael RN RN mb9 Corrections: (The following items were deleted from the chart) 10:46 10:45 PSHx: None; ll1 ll1
--- NOTE | 2023-04-06 13:34 | EDPHYS ---
Physician Documentation [facility] Name: Mi Ortiz Age: 57 yrs Sex: Female : 1965 Arrival Date: 04/06/2023 Time: 10:32 Bed 10 Private MD: ED Physician Alphonso Wray HPI: 04/06 10:52 This 57 yrs old Female presents to ER via Ambulatory with complaints of Body ms3 Aches. 10:52 57-year-old female with past medical history of hypertension presents for cough, body ms3 aches, headache that is been ongoing for 2 days. 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 Patient rates her pain 10/10 described as aching pain throughout her body. Patient states she took ibuprofen last night. Patient endorses fevers, chills, cough. Patient denies nausea or vomiting. Patient denies alleviating or inciting factors. 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 - Social history:: Smoking status: Patient denies any tobacco usage or history of. ROS: 10:52 Cardiovascular: Negative for chest pain, and palpitations. ms3 10:52 Abdomen/GI: Negative for abdominal pain, nausea, vomiting, diarrhea, and constipation, Skin: Negative for injury, rash, and discoloration. 10:52 Constitutional: Positive for body aches, chills. 10:52 Respiratory: Positive for cough. Exam: 10:52 Constitutional: This is a well developed, well nourished patient who is awake, alert, ms3 and in no acute distress. Head/Face: Normocephalic, atraumatic. Chest/axilla: Normal chest wall appearance and motion. Nontender with no deformity. Cardiovascular: Regular rate and rhythm with a normal S1 and S2. No gallops, murmurs, or rubs. Normal PMI, no JVD. No pulse deficits. Respiratory: Lungs have equal breath sounds bilaterally, clear to auscultation and percussion. No rales, rhonchi or wheezes noted. No increased work of breathing, no retractions or nasal flaring. Abdomen/GI: Soft, non-tender, with normal bowel sounds. No distension or tympany. No guarding or rebound. No evidence of tenderness throughout. Skin: Warm, dry with normal turgor. Normal color with no rashes, no lesions, and no evidence of cellulitis. MS/ Extremity: Pulses equal, no cyanosis. Neurovascular intact. Full, normal range of motion. Vital Signs: 10:43 BP 156 / 91; Pulse 84; Resp 17; Temp 99.7; Pulse Ox 97% on R/A; Weight 77.11 kg; Height ll1 5 ft. 5 in. ; Pain 10/10; 13:34 BP 142 / 84; Pulse 88; Resp 18; Pulse Ox 100% on R/A; mb9 10:43 Body Mass Index 28.29 (77.11 kg, 165.1 cm) ll1 10:43 Pain Scale: Adult ll1 MDM: 10:52 Patient medically screened. ms3 10:52 Differential Diagnosis: Bronchitis Influenza Other COVID. ms3 13:33 Data reviewed: vital signs, nurses notes, lab test result(s), radiologic studies, plain ms3 films, and as a result, I will discharge patient. I considered the following discharge prescriptions or medication management in the emergency department Medications were administered in the Emergency Department. See MAR. Independent interpretation of the following test(s) in the Emergency Department X-Ray: My interpretation is Chest x-ray images reviewed by me do not reveal pneumonia. Care significantly affected by the following chronic conditions: Hypertension. Counseling: I had a detailed discussion with the patient and/or guardian regarding the historical points, exam findings, and any diagnostic results supporting the discharge/admit diagnosis, lab results, radiology results, the need for outpatient follow up, to return to the emergency department if symptoms worsen or persist or if there are any questions or concerns that arise at home. Special discussion: I discussed with the patient/guardian in detail that at this point there is no indication for admission to the hospital. It is understood, however, that if the symptoms persist or worsen the patient needs to return immediately for re-evaluation. ED course: Discussed labs and x-ray findings with patient. Patient to follow-up with primary care physician in 2 to 3 days. Patient understands and agrees with plan. All questions were answered. Return precautions discussed include worsening symptoms, or any other concerns. On reevaluation patient is alert and oriented x4, no apparent distress, nontoxic-appearing, ambulatory number department, speaking full sentences. 04/06 10:46 Order name: COVID-19 SARS RT PCR; Complete Time: 12:28 ll1 04/06 11:23 Order name: Flu; Complete Time: 13:22 ms3 04/06 11:23 Order name: Chest Pa And Lat (2 Views) XRAY; Complete Time: 12:28 ms3 Administered Medications: 10:53 Drug: Ibuprofen PO 600 mg Route: PO; 1 12:11 Follow up: Response: No adverse reaction mb9 Disposition Summary: 04/06/23 13:33 Discharge Ordered Location: Home ms3 Condition: Stable ms3 Diagnosis - Acute upper respiratory infection, unspecified ms3 - Elevated blood-pressure reading, without diagnosis of hypertension ms3 Discharge Instructions: - Discharge Summary Sheet ms3 - Upper Respiratory Infection, Adult ms3 Forms: - Medication Reconciliation Form ms3 - Thank You Letter ms3 - Antibiotic Education ms3 - Prescription Opioid Use ms3 - Patient Portal Instructions ms3 - Leadership Thank You Letter ms3 Signatures: Dispatcher [employer] Lala [place] RN RN ll1 Alphonso Wray DO DO ms3 Wendy Michael RN mb9 Corrections: (The following items were deleted from the chart) 10:46 10:45 PSHx: None; ll1 ll1
[2023-04-06 14:10] VITALS: TEMP 99.7
[2023-04-06 14:17] VITALS: BP 142/84; O2SAT 100
== END 2023-04-06 13:37 | disposition home or self-care (01) ==
LOC: ER 10:32
DX: J06.9 Acute upper respiratory infection, unspecified (principal); I10 Essential (primary) hypertension; Z20.822 Contact with and (suspected) exposure to COVID-19; Z88.1 Allergy status to other antibiotic agents
CPT/HCPCS: 71046; 87635; 87804; 99284

== ENCOUNTER 2023-05-17 18:18 | Emergency (ER) | payer BC ==
--- OUTSIDE RECORDS SUMMARY | 2023-05-17 18:22 | XMS REPORT | Continuity of Care Document ---
:1965 Author Organization [facility] t Address [address] [facility] [address] [place] [address] Care Team Providers Name Role Phone Pcp, Patient Does Not Have A Primary Care Physician [id number] Rossi Warner Attending Clinician Unavailable KARY RUEDA Attending Clinician Unavailable KARY THOMAS Attending Clinician Unavailable TUNDE RDZ Attending Clinician Unavailable Doctor Unassigned, Commodore Attending Clinician Unavailable Tunde Rivas Attending Clinician [...] 1-10 it y of adult adult 00:00: [place] 00 Medical Branch BMI BMI Disease Active 2016-08 Univers 29.0-29.9, 29.0-29.9, 1-10 it y of adult adult 00:00: [place] 00 Medical Branch Prolapse Prolapse Disease Active 2016-08 Unive rs of female of female 1-10 ity of bladder, bladder, 00:00: [place] acquired acquired 00 Medica l Branch BMI BMI Disease Active 2016-08 Univers 29.0-29.9, 29.0-29.9, 1-10 it y of adult adult 00:00: [place] 00 Medical Branch Prolapse Prolapse Disease Active [...] [place] y[place]isa status 00 Nd dical Branch Essential Essential Disease Active 2014-08 Uni vers hypertensi hypertensi -20 it y [place], benign [place], benign [place] [facility] Contracept Contracept Disease Active 2014-08 U oswaldo márquez yulisa 1-13 ity of management management [place] [facility] Acute Acute Disease Active 2014-08 Univers cystitis cystitis -11 ity of without without 00:00: [place] hematuria hematuria [address] [place] [address] [id number] Primary Problem Comm on osteoarthr Spirit itis of - [facility] right knee [facility] Allergies, Adverse Reactions, Alerts Allergy Allergy Status Severity Reaction(s) Onset Inactive Treating Comm ents Source Name Type Date Date Clinician NO KNOWN Drug Active Univers ALLERGIE Class ity of S [facility] Social History Social Habit Start Date Stop Date Quantity Comments Source Sex Assigned At Common Sp anamika - [facility] History of [facility] - Tobacco Use [facility] Exposure to 2022-11-28 2022-12-08 Not sure [facility] SARS-CoV-2 00:00:00 08:18:00 [facility] (event) [place] Alcohol intake 2022-12-08 2022-12-08 0 /d University 00:00:00 00:00:00 [facility] Tobacco use and 2022-11-08 2022-11-08 Smokeless tobacco Un iversity of exposure 00:00:00 00:00:00 non-user [facility] Smoking Status Start Date Stop Date Source Never smoked tobacco [facility] Medications Ordered Filled Start Stop Current Ordering Indication Dosage Frequency Signature Comments Components Source Medication Medication Date Date Medication? Clinician (SIG) Name Name diclofenac 2022- No [id number] 75mg Take 1 Univers 75 mg EC 4- 05-05 tablet by ity o f tablet 00:00: 04:59 mouth 2 [place] 00 :00 (two) Medical times [place] daily with meals for 30 days. diclofenac 2022- No [id number] 75mg Take 1 Univers 75 mg EC 4-04 05-05 tablet by ity o f tablet 00:00: 04:59 mouth 2 [place] 00 :00 (two) Medical times [place] daily with meals for 30 days. diclofenac 2022- No [id number] 75mg Take 1 Univers 75 mg EC 4- 05-05 tablet by ity o f tablet 00:00: 04:59 mouth 2 [place] 00 :00 (two) Medical times Branch daily with meals for 30 days. diclofenac 2022-0 3- No [id number] 75mg Take 1 Univers 75 mg EC 4-04 05-05 tablet by ity o f tablet 00:00: 04:59 mouth 2 [place] 00 :00 (two) Medical times Branch daily with meals for 30 days. diclofenac 2022-0 2023- No [id number] 75mg Take 1 Univers 75 mg EC 4-04 05-05 tablet by ity o f tablet 00:00: 04:59 mouth 2 [place] 00 :00 (two) Medical times Branch daily with meals for 30 days. diclofenac 2022-0 3- No [id number] 75mg Take 1 Univers 75 mg EC 4-04 05-05 tablet by ity o f tablet 00:00: 04:59 mouth 2 [place] 00 :00 (two) Medical times Branch daily with meals for 30 days. diclofenac 2022-0 3- No [id number] 75mg Take 1 Univers 75 mg EC 4-04 05-05 tablet by ity o f tablet 00:00: 04:59 mouth 2 [place] 00 :00 (two) Medical times Branch daily with meals for 30 days. diclofenac 2022-0 3- No [id number] 75mg Take 1 Univers 75 mg EC 4-04 05-05 tablet by ity o f tablet 00:00: 04:59 mouth 2 [place] 00 :00 (two) Medical times Branch daily with meals for 30 days. diclofenac 2022-0 3- No [id number] 75mg Take 1 Univers 75 mg EC 4-04 05-05 tablet by ity o f tablet 00:00: 04:59 mouth 2 [place] 00 :00 (two) Medical times Branch daily with meals for 30 days. diclofenac 2022-0 3- No [id number] 75mg Take 1 Univers 75 mg EC 4-04 05-05 tablet by ity o f tablet 00:00: 04:59 mouth 2 [place] 00 :00 (two) Medical times Branch daily with meals for 30 days. Bupivicaine Bupivicaine 2021-0 No 5mg Common Gilbert Gilbert 8-30 Spirit 00:00: - [facility] Kenalog Kenalog 2021-0 No 40mg Common (Triamcinol (Triamcinol 8-30 S pirit one) one) 00:00: - [facility] Bupivicaine Bupivicaine 2021-0 No 5mg Common Gilbert Gilbert 8-30 Spirit 00:00: - [facility]I 00 [facility] Kenalog Kenalog 2021-0 No 40mg Common (Triamcinol (Triamcinol 8-30 S pirit one) one) 00:00: - [facility]I 00 [facility] Bupivicaine Bupivicaine 2021-0 No 5mg Common Gilbert Gilbert 8-30 Spirit 00:00: - [facility]I 00 [facility] Kenalog Kenalog 2021-0 No 40mg Common (Triamcinol (Triamcinol 8-30 S pirit one) one) 00:00: - [facility] 00 [facility] pantoprazol 2020-0 Yes [id number] 40mg Take 1 Univers e 40 mg EC 6-22 tablet by ity of tablet 00:00: mouth [place] 00 daily. Medical Branch pantoprazol 2020-0 Yes [id number] 40mg Take 1 Univers e 40 mg EC 6-22 tablet by ity of tablet 00:00: mouth [place] 00 daily. Medical Branch pantoprazol 2020-0 Yes [id number] 40mg Take 1 Univers e 40 mg EC 6-22 tablet by ity of tablet 00:00: mouth [place] 00 daily. Medical Branch pantoprazol 2020-0 Yes [id number] 40mg Take 1 Univers e 40 mg EC 6-22 tablet by ity of tablet 00:00: mouth [place] 00 daily. Medical Branch pantoprazol 2020-0 Yes [id number] 40mg Take 1 Univers e 40 mg EC 6-22 tablet by ity of tablet 00:00: mouth [place] 00 daily. Medical Branch pantoprazol 2020-0 Yes [id number] 40mg Take 1 Univers e 40 mg EC 6-22 tablet by ity of tablet 00:00: mouth [place] 00 daily. Medical Branch pantoprazol 2020-0 Yes [id number] 40mg Take 1 Univers e 40 mg EC 6-22 tablet by ity of tablet 00:00: mouth [place] 00 daily. Medical Branch pantoprazol 2020-0 Yes [id number] 40mg Take 1 Univers e 40 mg EC 6-22 tablet by ity of tablet 00:00: mouth [place] 00 daily. Medical Branch pantoprazol 2020-0 Yes [id number] 40mg Take 1 Univers e 40 mg EC 6-22 tablet by ity of tablet 00:00: mouth [place] 00 daily. Medical Branch pantoprazol 2020-0 Yes [id number] 40mg Take 1 Univers e 40 mg EC 6-22 tablet by ity of tablet 00:00: mouth [place] 00 daily. Medical Branch pantoprazol 2020-0 Yes [id number] 40mg Take 1 Univers e 40 mg EC 6-22 tablet by ity of tablet 00:00: mouth [place] 00 daily. Medical Branch pantoprazol 2020-0 Yes [id number] 40mg Take 1 Univers e 40 mg EC 6-22 tablet by ity of tablet 00:00: mouth [place] 00 daily. Medical Branch pantoprazol 2020-0 Yes [id number] 40mg Take 1 Univers e 40 mg EC 6-22 tablet by ity of tablet 00:00: mouth [place] 00 daily. Medical Branch pantoprazol 2020-0 Yes [id number] 40mg Take 1 Univers e 40 mg EC 6-22 tablet by ity of tablet 00:00: mouth [place] 00 daily. Medical Branch pantoprazol 2020-0 Yes [id number] 40mg Take 1 Univers e 40 mg EC 6-22 tablet by ity of tablet 00:00: mouth [place] 00 daily. Medical Branch pantoprazol 2020-0 Yes [id number] 40mg Take 1 Univers e 40 mg EC 6-22 tablet by ity of tablet 00:00: mouth [place] 00 daily. Medical Branch pantoprazol 2020-0 Yes [id number] 40mg Take 1 Univers e 40 mg EC 6-22 tablet by ity of tablet 00:00: mouth [place] 00 daily. Medical Branch pantoprazol 2020-0 Yes [id number] 40mg Take 1 Univers e 40 mg EC 6-22 tablet by ity of tablet 00:00: mouth [place] 00 daily. Medical Branch pantoprazol 2020-0 Yes [id number] 40mg Take 1 Univers e 40 mg EC 6-22 tablet by ity of tablet 00:00: mouth [place] 00 daily. Medical Branch pantoprazol 2020-0 Yes [id number] 40mg Take 1 Univers e 40 mg EC 6-22 tablet by ity of tablet 00:00: mouth [place] 00 daily. Medical Branch pantoprazol 2020-0 Yes [id number] 40mg Take 1 Univers e 40 mg EC 6-22 tablet by ity of tablet 00:00: mouth [place] 00 daily. Medical Branch pantoprazol 2020-0 Yes [id number] 40mg Take 1 Univers e 40 mg EC 6-22 tablet by ity of tablet 00:00: mouth [place] 00 daily. Medical Branch pantoprazol 2019-0 Yes [id number] 40mg Take 1 Univers e 40 mg EC 6-22 tablet by ity of tablet 00:00: mouth [place] 00 daily. Medical Branch traMADOL 2018-0 Yes [id number] 50mg Take 1 Uni vers (ULTRAM) 50 3-10 tablet by ity of mg tablet 00:00: mouth [place] 00 every 6 Medical (six) Branch hours as needed for Pain (scale 7-10). clindamycin 2018-0 Yes [id number] 300mg Take 1 Univers 300 mg 3-10 capsule by ity of capsule 00:00: mouth (three) Medical times Branch daily. traMADOL 2018-0 Yes [id number] 50mg Take 1 Uni vers (ULTRAM) 50 3-10 tablet by ity of mg tablet 00:00: mouth 00 every 6 Medical (six) Branch hours as needed for Pain (scale 7-10). clindamycin 2018-0 Yes [id number] 300mg Take 1 Univers 300 mg 3-10 capsule by ity of capsule 00:00: mouth (three) Medical times Branch daily. traMADOL 2018-0 Yes [id number] 50mg Take 1 Uni vers (ULTRAM) 50 3-10 tablet by ity of mg tablet 00:00: mouth [place] 00 every 6 Medical (six) Branch hours as needed for Pain (scale 7-10). clindamycin 2019-0 Yes [id number] 300mg Take 1 Univers 300 mg 3-10 capsule by ity of capsule 00:00: mouth (three) Medical times Branch daily. traMADOL 2018-0 Yes [id number] 50mg Take 1 Uni vers (ULTRAM) 50 3-10 tablet by ity of mg tablet 00:00: mouth [place] 00 every 6 Medical (six) Branch hours as needed for Pain (scale 7-10). clindamycin 2019-0 Yes [id number] 300mg Take 1 Univers 300 mg 3-10 capsule by ity of capsule 00:00: mouth 3 (three) Medical times Branch daily. traMADOL 2019-0 Yes [id number] 50mg Take 1 Uni vers (ULTRAM) 50 3-10 tablet by ity of mg tablet 00:00: mouth [place] 00 every 6 Medical (six) Branch hours as needed for Pain (scale 7-10). clindamycin 2019-0 Yes [id number] 300mg Take 1 Univers 300 mg 3-10 capsule by ity of capsule 00:00: mouth (three) Medical times Branch daily. traMADOL 2019-0 Yes [id number] 50mg Take 1 Uni vers (ULTRAM) 50 3-10 tablet by ity of mg tablet 00:00: mouth [place] 00 every 6 Medical (six) Branch hours as needed for Pain (scale 7-10). clindamycin 2019-0 Yes [id number] 300mg Take 1 Univers 300 mg 3-10 capsule by ity of capsule 00:00: mouth (three) Medical times Branch daily. traMADOL 2019-0 Yes [id number] 50mg Take 1 Uni vers (ULTRAM) 50 3-10 tablet by ity of mg tablet 00:00: mouth 00 every 6 Medical (six) Branch hours as needed for Pain (scale 7-10). clindamycin 2019-0 Yes [id number] 300mg Take 1 Univers 300 mg 3-10 capsule by ity of capsule 00:00: mouth (three) Medical times Branch daily. traMADOL 2019-0 Yes [id number] 50mg Take 1 Uni vers (ULTRAM) 50 3-10 tablet by ity of mg tablet 00:00: mouth 00 every 6 Medical (six) Branch hours as needed for Pain (scale 7-10). clindamycin 2019-0 Yes [id number] 300mg Take 1 Univers 300 mg 3-10 capsule by ity of capsule 00:00: mouth (three) Medical times Branch daily. traMADOL 2019-0 Yes [id number] 50mg Take 1 Uni vers (ULTRAM) 50 3-10 tablet by ity of mg tablet 00:00: mouth [place] 00 every 6 Medical (six) Branch hours as needed for Pain (scale 7-10). traMADOL 2019-0 Yes [id number] 50mg Take 1 Uni vers (ULTRAM) 50 3-10 tablet by ity of mg tablet 00:00: mouth [place] 00 every 6 Medical (six) Branch hours as needed for Pain (scale 7-10). clindamycin 2019-0 Yes [id number] 300mg Take 1 Univers 300 mg 3-10 capsule by ity of capsule 00:00: mouth (three) Medical times Branch daily. clindamycin 2019-0 Yes [id number] 300mg Take 1 Univers 300 mg 3-10 capsule by ity of capsule 00:00: mouth (three) Medical times Branch daily. traMADOL 2019-0 Yes [id number] 50mg Take 1 Uni vers (ULTRAM) 50 3-10 tablet by ity of mg tablet 00:00: mouth [place] 00 every 6 Medical (six) Branch hours as needed for Pain (scale 7-10). clindamycin 2019-0 Yes [id number] 300mg Take 1 Univers 300 mg 3-10 capsule by ity of capsule 00:00: mouth (three) Medical times Branch daily. traMADOL 2019-0 Yes [id number] 50mg Take 1 Uni vers (ULTRAM) 50 3-10 tablet by ity of mg tablet 00:00: mouth 00 every 6 Medical (six) Branch hours as needed for Pain (scale 7-10). clindamycin 2019-0 Yes [id number] 300mg Take 1 Univers 300 mg 3-10 capsule by ity of capsule 00:00: mouth (three) Medical times Branch daily. traMADOL 2019-0 Yes [id number] 50mg Take 1 Uni vers (ULTRAM) 50 3-10 tablet by ity of mg tablet 00:00: mouth 00 every 6 Medical (six) Branch hours as needed for Pain (scale 7-10). clindamycin 2019-0 Yes [id number] 300mg Take 1 Univers 300 mg 3-10 capsule by ity of capsule 00:00: mouth (three) Medical times Branch daily. traMADOL 2019-0 Yes [id number] 50mg Take 1 Uni vers (ULTRAM) 50 3-10 tablet by ity of mg tablet 00:00: mouth [place] 00 every 6 Medical (six) Branch hours as needed for Pain (scale 7-10). clindamycin 2019-0 Yes [id number] 300mg Take 1 Univers 300 mg 3-10 capsule by ity of capsule 00:00: mouth (three) Medical times Branch daily. traMADOL 2019-0 Yes [id number] 50mg Take 1 Uni vers (ULTRAM) 50 3-10 tablet by ity of mg tablet 00:00: mouth [place] 00 every 6 Medical (six) Branch hours as needed for Pain (scale 7-10). clindamycin 2019-0 Yes [id number] 300mg Take 1 Univers 300 mg 3-10 capsule by ity of capsule 00:00: mouth 3 (three) Medical times Branch daily. traMADOL 2019-0 Yes [id number] 50mg Take 1 Uni vers (ULTRAM) 50 3-10 tablet by ity of mg tablet 00:00: mouth [place] 00 every 6 Medical (six) Branch hours as needed for Pain (scale 7-10). clindamycin 2019-0 Yes [id number] 300mg Take 1 Univers 300 mg 3-10 capsule by ity of capsule 00:00: mouth 3 00 (three) Medical times Branch daily. traMADOL 2019-0 Yes [id number] 50mg Take 1 Uni vers (ULTRAM) 50 3-10 tablet by ity of mg tablet 00:00: mouth [place] 00 every 6 Medical (six) Branch hours as needed for Pain (scale 7-10). clindamycin 2019-0 Yes [id number] 300mg Take 1 Univers 300 mg 3-10 capsule by ity of capsule 00:00: mouth (three) Medical times Branch daily. traMADOL 2019-0 Yes [id number] 50mg Take 1 Uni vers (ULTRAM) 50 3-10 tablet by ity of mg tablet 00:00: mouth [place] 00 every 6 Medical (six) Branch hours as needed for Pain (scale 7-10). clindamycin 2019-0 Yes [id number] 300mg Take 1 Univers 300 mg 3-10 capsule by ity of capsule 00:00: mouth (three) Medical times Branch daily. traMADOL 2019-0 Yes [id number] 50mg Take 1 Uni vers (ULTRAM) 50 3-10 tablet by ity of mg tablet 00:00: mouth [place] 00 every 6 Medical (six) Branch hours as needed for Pain (scale 7-10). clindamycin 2019-0 Yes [id number] 300mg Take 1 Univers 300 mg 3-10 capsule by ity of capsule 00:00: mouth (three) Medical times Branch daily. traMADOL 2019-0 Yes [id number] 50mg Take 1 Uni vers (ULTRAM) 50 3-10 tablet by ity of mg tablet 00:00: mouth [place] 00 every 6 Medical (six) Branch hours as needed for Pain (scale 7-10). clindamycin 2019-0 Yes [id number] 300mg Take 1 Univers 300 mg 3-10 capsule by ity of capsule 00:00: mouth 3 00 (three) Medical times Branch daily. traMADOL 2019-0 Yes [id number] 50mg Take 1 Uni vers (ULTRAM) 50 3-10 tablet by ity of mg tablet 00:00: mouth [place] 00 every 6 Medical (six) Branch hours as needed for Pain (scale 7-10). clindamycin 2019-0 Yes [id number] 300mg Take 1 Univers 300 mg 3-10 capsule by ity of capsule 00:00: mouth 3 00 (three) Medical times Branch daily. traMADOL 2019-0 Yes [id number] 50mg Take 1 Uni vers (ULTRAM) 50 3-10 tablet by ity of mg tablet 00:00: mouth [place] 00 every 6 Medical (six) Branch hours as needed for Pain (scale 7-10). clindamycin 2019-0 Yes [id number] 300mg Take 1 Univers 300 mg 3-10 capsule by ity of capsule 00:00: mouth 3 00 (three) Medical times Branch daily. traMADOL 2019-0 Yes [id number] 50mg Take 1 Uni vers (ULTRAM) 50 3-10 tablet by ity of mg tablet 00:00: mouth [place] 00 every 6 Medical (six) Branch hours as needed for Pain (scale 7-10). clindamycin 2019-0 Yes [id number] 300mg Take 1 Univers 300 mg 3-10 capsule by ity of capsule 00:00: mouth 3 00 (three) Medical times Branch daily. traMADOL 2019-0 Yes [id number] 50mg Take 1 Uni vers (ULTRAM) 50 3-10 tablet by ity of mg tablet 00:00: mouth [place] 00 every 6 Medical (six) Branch hours as needed for Pain (scale 7-10). clindamycin 2019-0 Yes [id number] 300mg Take 1 Univers 300 mg 3-10 [...] 00:00: mouth [place] 00 every Medical morning. [place] hydroCHLORO 2016-08 Yes 25mg Take 1 Univ ers thiazide 25 1-07 tablet by ity of mg tablet 00:00: mouth [place] 00 every Medical morning. [place] hydroCHLORO 2016-08 Yes 25mg Take 1 Univ ers thiazide 25 1-07 tablet by ity of mg tablet 00:00: mouth [place] 00 every Medical morning. [place] hydroCHLORO 2016-08 Yes 25mg Take 1 Univ ers thiazide 25 1-07 tablet by ity of mg tablet 00:00: mouth [place] 00 every Medical morning. [place] hydroCHLORO 2016-08 Yes 25mg Take 1 Univ ers thiazide 25 1-07 tablet by ity of mg tablet 00:00: mouth [place] 00 every Medical morning. [place] hydroCHLORO 2016-08 Yes 25mg Take 1 Univ ers thiazide 25 1-07 tablet by ity of mg tablet 00:00: mouth [place] 00 every Medical morning. [place] hydroCHLORO 2016-08 Yes 25mg Take 1 Univ ers thiazide 25 1-07 tablet by ity of mg tablet 00:00: mouth [place] 00 every Medical morning. [place] hydroCHLORO 2016-08 Yes 25mg Take 1 Univ ers thiazide 25 1-07 tablet by ity of mg tablet 00:00: mouth [place] 00 every Medical morning. [place] hydroCHLORO 2016-08 Yes 25mg Take 1 Univ ers thiazide 25 1-07 tablet by ity of mg tablet 00:00: mouth [place] 00 every Medical morning. [place] hydroCHLORO 2016-08 Yes 25mg Take 1 Univ ers thiazide 25 1-07 tablet by ity of mg tablet 00:00: mouth [place] 00 every Medical morning. [place] hydroCHLORO 2016-08 Yes 25mg Take 1 Univ ers thiazide 25 1-07 tablet by ity of mg tablet 00:00: mouth [place] 00 every Medical morning. [place] Lisinopril/ Lisinopril/ No Lisinopril HCTZ HCTZ /HCTZ Lisinopril/ Lisinopril/ No Lisinopril HCTZ HCTZ /HCTZ Lisinopril/ Lisinopril/ No Lisinopril HCTZ HCTZ /HCTZ Vital Signs Vital Name Observation Time Observation Value Comments Source Body height 2022-12-08 13:31:00 165.1 cm [facility] Body weight 2022-12-08 13:31:00 75.297 kg [facility] BMI 2022-12-08 13:31:00 27.62 kg/m2 Universi ty [facility] Systolic blood 2022-11-08 18:02:00 118 mm[Hg] Univer sity of pressure [facility] Diastolic blood 2022-11-08 18:02:00 77 mm[Hg] Unive rsity of [facility] Heart rate 2022-11-08 18:02:00 80 /min Universi [facility] Body height 2022-11-08 18:02:00 165.1 cm Universi [facility] Body weight 2022-11-08 18:02:[facility] [place] [facility] 2022-11-08 18:02:00 27.69 kg/m2 [facility] height 2022-05-10 15:00:00 65 [in_i] [facility] weight 2022-05-10 15:00:00 159 [lb_av] [facility] temperature 2022-05-10 15:00:00 98.1 [degF] Common [facility] bmi 2022-05-10 15:00:00 26.46 kg/m2 Common [facility] blood pressure 2022-05-10 15:00:00 114 mm[Hg] [facility] - systolic [facility] blood pressure 2022-05-10 15:00:00 70 mm[Hg] [facility] - diastolic [facility] height 2022-04-05 10:30:00 65 [in_i] Common [facility] weight 2022-04-05 10:30:00 159 [lb_av] Common [facility] temperature 2022-04-05 10:30:00 97.6 [degF] Common [facility] bmi 2022-04-05 10:30:00 26.46 kg/m2 [facility] blood pressure 2022-04-05 10:30:00 126 mm[Hg] [facility] - systolic [facility] blood pressure 2022-04-05 10:30:00 84 mm[Hg] [facility] - diastolic [facility] Systolic blood 2020-01-27 15:55:00 126 mm[Hg] Univer sity of pressure [place] [facility] Diastolic blood 2020-01-27 15:55:00 89 mm[Hg] Unive rsity of pressure [place] [facility] Heart rate 2020-01-27 15:55:00 83 /min Universi ty of [place] [facility] Body temperature 2020-01-27 15:55:00 36.33 Rossi Univ ers[facility] [place] [facility] Body height 2020-01-27 15:55:00 165.1 cm [facility]i ty of [place] [facility] Body weight 2020-01-27 15:55:00 87.907 kg [facility]i ty of [place] [facility] BMI 2020-01-27 15:55:00 32.25 kg/m2 Universi ty of [place] [facility] Systolic blood 2020-01-27 15:55:00 126 mm[Hg] Univer sity of pressure [place] [facility] Diastolic blood 2020-01-27 15:55:00 89 mm[Hg] Unive rsity of pressure [place] [facility] Heart rate 2020-01-27 15:55:00 83 /min Universi ty [facility] [place] [facility] Body temperature 2020-01-27 15:55:00 36.33 Rossi [facility] [place] [facility] Body height 2020-01-27 15:55:00 165.1 cm [facility] [place] [facility] Body weight 2020-01-27 15:55:00 87.907 kg [facility] [place] [facility] BMI 2020-01-27 15:55:00 32.25 kg/m2 [facility] [place] [facility] Procedures Procedure Date / Time Performing Clinician Source Performed AUTHORIZATION FOR 2022-12-19 05:01:00 Doctor Unassigned, No [facility] [place] RELEASE OF PHI Name Medical Branch REFERRAL- 2022-11-02 05:01:00 Doctor Unassigned, No [facility] [place] REQUEST/RESPONSE Name Medical Branch WORKERS COMPENSATION 2022-10-14 06:01:00 Doctor Unassigned, No [facility] [place] Name Medical Branch EXTERNAL PROVIDER 2021-02-17 05:01:00 Doctor Unassigned, No [facility] [place] RECORDS Name Medical Branch EXTERNAL PROVIDER 2020-03-02 05:01:00 Doctor Unassigned, No [facility] RECORDS Name Medical Branch ASSIGNMENT OF BENEFITS 2020-01-27 15:36:07 Doctor Unassigned, No [facility] Name [facility] Branch Encounters Start End Encounter Admission Attending Care Care Encounter Source Date/Time Date/Time Type Type Clinicians Facility Department ID 2022-05-10 Outpatient YAEL Warner [facility] [id number] Common 13:46:02 [facility] 2022-05-09 Outpatient YAEL Warner [facility] [id number] Common 11:56:01 [facility] 2022-04-12 Outpatient YAEL Warner [facility] [id number] Common 09:34:01 [facility] 2022-04-05 Outpatient YAEL Warner [facility] [id number] Common 10:41:01 [facility] 2023-01-29 2023-01-[address] [facility] JAVIER [address] [facility] 01:50:00 23:59:00 KARY 2023-01-28 2023-01-29 Emergency E MARTHA [facility] [id number] [facility] 23:32:00 08:12:00 KARY 2022-12-19 2022-12-19 Orders Doctor ECHOLS [id number] Univers 00:00:00 00:00:00 Only Unassigned, EUNICE [id number] ity of [place] [facility] [id number] Isaías as [id number] [address] 2022-12-08 2022-12-08 Office Kajal [facility] [id number] Univers 08:45:00 09:00:00 Visit [facility] [id number] it y of [place] [id number] Isaías as MIREYA?BLEA [id number] Nd annette [address] MEDICAL OFFICE BUILDING 2022-12-08 2022-12-08 [facility]patient [facility] [id number] Univers 08:45:00 08:45:00 [facility] 2022-11-21 2022-11-21 [facility] [id number] Univers 00:00:00 00:00:00 [employer] [facility] [id number] it y of [place] [id number] Isaías as MIREYA?BLEA [id number] Me annette [place] [address] [facility] OFFICE [facility] 2022-11-18 2022-11-18 Telephone [facility] [id number] Univers 00:00:00 00:00:00 Tunde S HEALTH [id number] it y of [place] [id number] Isaías as MIREYA?BLEA [phone] Nd annette ALCANTARA [address] [place] [address] 2022-11-10 2022-11-10 [facility]phone [facility] [id number] Univers 00:00:00 00:00:00 Tunde S HEALTH 350.1.13.10 it y of [place] [id number] Isaías as MIREYA?BLEA [phone] Nd annette ALCANTARA [address] [place] [address] 2022-11-08 2022-11-08 [facility] [id number] Univers 13:00:00 14:03:14 [facility] 2022-11-08 2022-11-08 Office [facility] 1.2.840.114 [id number] Univers 13:00:00 14:03:14 Visit [facility] [id number] it y of [place] [id number] Isaías as MIREYA?BLEA [phone] Nd annette ALCANTARA [address] [place] [address] 2022-11-08 2022-11-08 Telephone [facility] [id number] Univers 00:00:00 00:00:00 Tunde S HEALTH [id number] it y of [place] [id number] Isaías as MIREYA?BLEA [phone] Nd annette ALCANTARA [address] [place] [address] 2022-11-02 2022-11-02 Orders Doctor ONESIMO 1.2.840.114 [id number] Univers 00:00:00 00:00:00 Only Unassigned, EUNICE 350.1.13.10 ity of [place] [facility] [id number] Isaías as [id number] [facility] [address] 2022-10-14 2022-10-14 Orders Doctor ONESIMO 1.2.840.114 [id number] Univers 00:00:00 00:00:00 Only Unassigned, EUNICE 350.1.13.10 ity of [place] [facility] [id number] Isaías as [phone] [facility] [address] 2022-05-10 2022-05-10 OFFICE STLMLC STLMLC [id number] Co mmon 00:00:00 00:00:00 VISIT EST Spir it PT LEVEL 3 - [facility] 2022-04-05 2022-04-05 OFFICE STLMLC STLMLC [id number] Co mmon 00:00:00 00:00:00 VISIT NEW Spir it PT LEVEL 4 - [facility] 2021-09-01 2021-09-01 Laboratory Only, Adc Pob2 Test [facility] 1.2 .840.114 [id number] Univers 11:00:00 11:15:00 Only Gibran Walters 350.1.13 .10 it[place] [id number] [phone] [address] 2021-09-01 2021-09-01 Outpatient Maribell WALTERS [facility] [id number] Univers 11:00:00 11:05:11 GIBRAN whitman [facility] 2021-09-01 2021-09-01 Telephone RivkaONESIMO [id number] Univers 00:00:00 00:00:00 Izabela DAWSON 350.1.13.10 it y of [facility] [id number] Isaías as [phone] [facility] [address] 2021-08-30 2021-08-30 Outpatient Maribell [facility] [id number] Univers 10:30:00 10:41:00 GIBRAN whitman [facility] 2021-08-30 2021-08-30 Laboratory Only, Adc Pob2 Test [facility] 1.2 .840.114 [id number] Univers 10:30:00 10:41:00 Only Gibran Walters 350.1.13 .10 ity of [place] [phone] Nd dical [facility] [address] [facility] 2021-08-30 2021-08-30 Letter ONESIMO Garcia 1.2.840.114 [id number] Univers 00:00:00 00:00:00 (Out) Elicia Kolb EUNICE 350.1.13.10 it y of HOSPITAL 4.2.7.2.686 Isaías as [phone] [facility] [address] 2021-02-17 2021-02-17 Orders Doctor ONESIMO 1.2.840.114 [id number] Univers 00:00:00 00:00:00 Only Unassigned, EUNICE 350.1.13.10 ity of [place] [facility]OSPITAL 4.2.7.2.686 Isaías as [phone] [facility] [address] [place] 2021-02-09 2021-02-09 ANABELLA Liu 1.2.840.114 [id number] Univers 00:00:00 00:00:00 Annmarie E Y HEALTH 350.1.13.10 ity of CL[place].2.[place] [id number] [facility] [address] [place] 2020-03-02 2020-03-02 Orders Doctor ONESIMO 1.2.840.114 [id number] Univers 00:00:00 00:00:00 Only Unassigned, EUNICE 350.1.13.10 ity of [place] HOSPITAL 4.2.7.2.686 Isaías as [phone] [facility] [address] 2020-03-02 2020-03-02 Orders Doctor ONESIMO 1.2.840.114 [id number] 00:00:00 00:00:00 Only Unassigned, EUNICE 350.1.13.10 [place] [facility] 4.2.7.2.686 [phone] 009 2020-02-24 2020-02-24 Outpatient R JARETT [facility] [id number] Univers 10:30:00 10:30:00 ANNMARIE whitman o f [facility] 2020-02-13 2020-02-13 Ancillary Swallows, Gal Speech Modifie d Barium UNIVERSIT 1.2.840.114 [id number] Univers 11:00:12 11:30:12 Visit Stanislaw Yee Ross 350.1.13.10 ity of NATIONAL 4.2.7.2.686 Isaías as BANK [phone] [facility]. [address] [place] [address] 2020-02-13 2020-02-13 Ancillary Swallows, UNIVERSIT 1.2.840.114 [id number] 11:00:12 11:30:12 Visit Gal Speech Y 350.1.13.10 Modified NATIONAL 4.2.7.2.686 Barium BANK [phone] [facility]. [facility] 2020-02-13 2020-02-13 [facility] [id number] [facility] 09:00:00 09:00:00 YEE whitman of [facility] 2020-01-27 2020-01-27 [facility] [id number] [facility] 10:43:44 11:39:23 Visit Annmarie E Y HEALTH 350.1.13.10 ity of [facility] 4.2.7.2.[place] [phone] [address] 2020-01-27 2020-01-27 Office Jarett, [facility] [id number] 10:43:44 11:39:23 Visit Annmarie E Y HEALTH 350.1.13.10 CLINICS 4.2.7.2.686 [id number] [facility] 2020-01-27 2020-01-27 Outpatient [facility] [id number] Univers 10:30:00 10:30:00 ANNMARIE garcia f [facility] 2020-01-27 2020-01-27 Orders Doctor ECHOLS 1.2.840.114 [id number] Univers 00:00:00 00:00:00 Only Unassigned, EUNICE 350.1.13.10 ity of [place] [facility] 4.2.7.2.686 Isaías as [phone] [address] Results This patient has no known results.
--- NOTE | 2023-05-17 19:37 | RAD REPORT ---
EXAM DESCRIPTION: RAD - Foot Left 3 View - 05/17/2023 7:27 pm CLINICAL HISTORY: PAIN COMPARISON: Foot Left 3 View dated 03/23/2020; Foot Left 3 View dated 06/09/2019 FINDINGS: Lucency noted in the proximal phalanx of the second toe likely representing nondisplaced f racture. Mild soft tissue swelling is seen. Moderate posterior calcaneal spur is seen.
--- NOTE | 2023-05-17 19:53 | ER ---
Nurse's Notes [facility] Name: Mi Ortiz Age: 57 yrs Sex: Female : 1965 Arrival Date: 05/17/2023 Time: 18:18 Bed 12 Private MD: Diagnosis: Nondisplaced fracture of proximal phalanx of left lesser toe(s) Presentation: 05/17 18:29 Chief complaint: Patient states: she tripped and fell yesterday and is now having left ap3 pain of her second toe on her left foot and on the top of her left foot. Coronavirus screen: At this time, the client does not indicate any symptoms associated with coronavirus-19. Ebola Screen: No symptoms or risks identified at this time. Initial Sepsis Screen: Does the patient meet any 2 criteria? No. Patient's initial sepsis screen is negative. Does the patient have a suspected source of infection? No. Patient's initial sepsis screen is negative. Risk Assessment: Do you want to hurt yourself or someone else? Patient reports no desire to harm self or others. Onset of symptoms was May 16, 2023. 18:29 Method Of Arrival: Ambulatory ap3 18:29 Acuity: CARMEN 4 ap3 Triage Assessment: 18:30 General: Appears in no apparent distress. Behavior is calm, cooperative, appropriate ap3 for age. Pain: Complains of pain in left foot Pain began suddenly, 1 day ago. Neuro: Level of Consciousness is awake, alert, obeys commands, Oriented to person, place, time, situation. Cardiovascular: Patient's skin is warm and dry. Respiratory: Airway is patent Respiratory effort is even, unlabored, Respiratory pattern is regular, symmetrical. 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 - Social history:: Smoking status: Patient denies any tobacco usage or history of. Screenin:30 [facility] ED Fall Risk Assessment (Adult) History of falling in the last 3 months, ap3 including since admission Yes- single mechanical fall (1 pt) Confusion or Disorientation No (0 pts) Intoxicated or Sedated No (0 pts) Impaired Gait No (0 pts) Mobility Assist Device Used No (0 pt). Abuse screen: Denies threats or abuse. Nutritional screening: No deficits noted. Tuberculosis screening: No symptoms or risk factors identified. Assessment: 19:26 General: Appears comfortable, well groomed, well developed, well nourished, Behavior is iw calm, cooperative, appropriate for age, Reports trip and fall yesterday and now she has pain to top of left foot and to left toes. Pain: Complains of pain in left foot Pain does not radiate. Pain currently is 7 out of 10 on a pain scale. at worst was 10 out of 10 on a pain scale. Quality of pain is described as sharp, shooting, Pain began gradually, Is continuous, Alleviated by rest, Aggravated by increased activity, weight bearing. Neuro: Level of Consciousness is awake, alert, obeys commands, Oriented to person, place, time, situation, Appropriate for age. Cardiovascular: Capillary refill < 3 seconds Patient's skin is warm and dry. Respiratory: Airway is patent Respiratory effort is even, unlabored, Respiratory pattern is regular, symmetrical. Musculoskeletal: Swelling present in left foot. Vital Signs: 18:29 BP 117 / 78; Pulse 78; Resp 78; Temp 97.7; Pulse Ox 100% ; Weight 81.65 kg; ap3 20:02 BP 122 / 81; Pulse 74; Resp 16; Pulse Ox 99% on R/A; iw ED Course: 18:21 Patient arrived in ED. mr 18:30 Triage completed. ap3 18:31 Pedro Pablo Ralph MD is Attending Physician. kdr 18:31 Arm band placed on right wrist. ap3 19:22 Mirela Vang, RN is Primary Nurse. iw 19:26 Patient has correct armband on for positive identification. Bed in low position. Call iw light in reach. Side rails up X 1. Provided Education on: POC. Verbalized understanding. . 19:26 No provider procedures requiring assistance completed. iw 19:26 Patient did not have IV access during this emergency room visit. iw 19:29 Foot Left 3 View XRAY In Process Unspecified. EDMS Administered Medications: No medications were administered Medication: 19:26 VIS not applicable for this client. iw Outcome: 19:53 Discharge ordered by . uyen 20:02 Discharged to home ambulatory, iw 20:02 Condition: stable 20:02 Discharge instructions given to patient, Instructed on discharge instructions, follow up and referral plans. Demonstrated understanding of instructions, follow-up care, 20:03 Patient left the ED. iw Signatures: Dispatcher [employer] EDMS Pedro Pablo Ralph MD MD kdr Rivera, Wendy, Reg Reg mr Mirela Vang RN RN iw Lolis Kim RN RN ap3
--- NOTE | 2023-05-17 19:53 | EDPHYS ---
Physician Documentation [facility] Name: Mi Ortiz Age: 57 yrs Sex: Female : 1965 Arrival Date: 05/17/2023 Time: 18:18 Bed 12 Private MD: ED Physician Pedro Pablo Ralph HPI: 05/17 19:59 This 57 yrs old Female presents to ER via Ambulatory with complaints of Fall kdr Injury. 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 - Social history:: Smoking status: Patient denies any tobacco usage or history of. ROS: 20:25 Constitutional: Negative for fever, chills, and weight loss, Eyes: Negative for injury, kdr pain, redness, and discharge, Neck: Negative for injury, pain, and swelling, Cardiovascular: Negative for chest pain, palpitations, and edema, Respiratory: Negative for shortness of breath, cough, wheezing, and pleuritic chest pain, Abdomen/GI: Negative for abdominal pain, nausea, vomiting, diarrhea, and constipation, Back: Negative for injury and pain, : Negative for injury, bleeding, discharge, and swelling, Skin: Negative for injury, rash, and discoloration, Neuro: Negative for headache, weakness, numbness, tingling, and seizure activity. Psych: Negative for depression, anxiety, suicide ideation, homicidal ideation, and hallucinations, Allergy/Immunology: Negative for hives, rash, and allergies, Endocrine: Negative for neck swelling, polydipsia, polyuria, polyphagia, and marked weight changes, Hematologic/Lymphatic: Negative for swollen nodes, abnormal bleeding, and unusual bruising, 20:25 MS/extremity: Positive for injury or acute deformity, decreased range of motion, pain, swelling, of the left second toe, Exam: 20:25 Constitutional: This is a well developed, well nourished patient who is awake, alert, kdr and in no acute distress. Head/Face: Normocephalic, atraumatic. Eyes: Pupils equal round and reactive to light, extra-ocular motions intact. Lids and lashes normal. Conjunctiva and sclera are non-icteric and not injected. Cornea within normal limits. Periorbital areas with no swelling, redness, or edema. Neck: Trachea midline, no thyromegaly or masses palpated, and no cervical lymphadenopathy. Supple, full range of motion without nuchal rigidity, or vertebral point tenderness. No Meningismus. Chest/axilla: Normal chest wall appearance and motion. Nontender with no deformity. No lesions are appreciated. Cardiovascular: Regular rate and rhythm with a normal S1 and S2. No gallops, murmurs, or rubs. Normal PMI, no JVD. No pulse deficits. 20:25 Musculoskeletal/extremity: Extremities: grossly normal except: noted in the left second toe: decreased ROM, pain, swelling, tenderness, Vital Signs: 18:29 BP 117 / 78; Pulse 78; Resp 78; Temp 97.7; Pulse Ox 100% ; Weight 81.65 kg; ap3 20:02 BP 122 / 81; Pulse 74; Resp 16; Pulse Ox 99% on R/A; iw MDM: 19:53 Patient medically screened. kdr 20:26 Data reviewed: vital signs, nurses notes, radiologic studies. kdr 05/17 18:45 Order name: Foot Left 3 View XRAY; Complete Time: 19:49 kdr 05/17 19:50 Order name: Misc. Order: Julius tape second and third toe together; Complete Time: 19:58 kdr Administered Medications: No medications were administered Disposition Summary: 05/17/23 19:53 Discharge Ordered Notes: Location: Home kdr Problem: new kdr Symptoms: have improved kdr Condition: Stable kdr Diagnosis - Nondisplaced fracture of proximal phalanx of left lesser toe(s) kdr Followup: kdr - With: Private Physician - When: 2 - 3 days - Reason: If symptoms return, Further diagnostic work-up, Recheck today's complaints, Continuance of care, Re-evaluation by your physician Discharge Instructions: - Discharge Summary Sheet kdr - How to Julius Tape kdr - Toe Fracture, [id number] kdr Forms: - Medication Reconciliation Form kdr - Thank You Letter kdr - Patient Portal Instructions kdr - Leadership Thank You Letter kdr Signatures: Dispatcher [employer] EDAZ Pedro Pablo Ralph MD MD kdr Lolis Kim, RN RN ap3
[2023-05-17 20:30] VITALS: TEMP 97.7
[2023-05-17 20:38] VITALS: BP 122/81; O2SAT 99
== END 2023-05-17 20:03 | disposition home or self-care (01) ==
LOC: ER 18:18
DX: S92.515A Nondisplaced fracture of proximal phalanx of left lesser toe(s), initial encounter for closed fracture (principal)

== ENCOUNTER → 2023-09-10 | Emergency (ER) | payer BC ==
[~2023-09-10] MED LIST: CEFTRIAXONE 1000 MG/VIAL ONE; FAMOTIDINE 20 MG/2 ML VIAL IV ONE; KETOROLAC 30 MG/ML INJ ONE; MORPHINE 4 MG/ML SYR ONE; NA CHLORIDE 0.9% 1,000 ML ONE; NA CHLORIDE 0.9% 50 ML ONE
[2023-09-10 15:21] LABS: Specific Gravity 1.022 (1.005-1.030); Urine Bacteria <20 /HPF (<20); Urine Bilirubin 1+ (Negative); Urine Blood Negative (Negative); Urine Clarity Extremely Turbid (Clear); Urine Color Dark-Orange (Yellow); Urine Glucose NEGATIVE (Negative); Urine Mucus Slight /HPF (None Seen); Urine Protein TRACE (Negative); Urine Urobilinogen 2+ (Normal); Urine WBC Clump Rare /HPF (None Seen); Urine pH 5.5 (5.0-7.0)
--- NOTE | 2023-09-10 17:03 | RAD REPORT ---
EXAM DESCRIPTION: CT - Stone Protocol - 09/10/2023 4:32 pm CLINICAL HISTORY: Abdominal pain. Left flank pain COMPARISON: January 2023 TECHNIQUE: Computed axial tomography of the abdomen pelvis was obtained without oral or IV contrast. Lack of IV and oral contrast limits evaluation of solid organs, appendix, bowel, and vessels. Araiza l reformatted images were obtained and reviewed. All CT scans are performed using dose optimization technique as appropriate and may include automated exposure control or mA/KV adjustment according to patient size. FINDINGS: A renal calculus is not seen. An ureteral calculus is not noted. A bladder calculus is not present. No hydronephrosis The liver, spleen, pancreas and adrenals appear grossly normal There is no evidence of diverticulitis. The appendix appears normal No adnexal mass IMPRESSION: Negative for a genitourinary calculus
[2023-09-10 17:24] LABS: Absolute Lymphocytes (CBC) 1.9 K/uL (0.7-4.9); Hematocrit 38.2 % (36.0-45.0); Lymphocytes % 32.1 % (15.3-44.8); MCV 80.2 fL (80-100); MPV 8.4 fL (7.6-11.3); Platelets 281 thou/uL (152-406); RBC Red Blood Cell Count 4.76 M/uL (3.86-4.86)
[2023-09-10 17:41] LABS: Albumin 3.7 g/dL (3.4-5.0); Bilirubin Total 0.5 mg/dL (0.2-1.0); Protein, Total 8.6 g/dL (6.4-8.2)
--- NOTE | 2023-09-10 17:53 | EDPHYS ---
Physician Documentation [facility] Name: Mi Ortiz Age: 58 yrs Sex: Female : 1965 Arrival Date: 09/10/2023 Time: 13:55 Bed 18 Private MD: ED Physician Tameka Johns HPI: 09/10 16:26 This 58 yrs old Female presents to ER via Ambulatory with complaints of Pain snw With Urination, Flank Pain. 16:26 Onset: The symptoms/episode began/occurred acutely, 4 day(s) ago, and became snw persistent. Associated signs and symptoms: Pertinent positives: dysuria. It is unknown whether or not the patient has had similar symptoms in the past. The patient has not recently seen a physician. Historical: - Allergies: 14:19 amoxicillin-pot clavulanate; hb - Home Meds: 14:19 lisinopril 5 mg oral tablet daily [Active]; unknown antidepressant [Active]; hb - PMHx: 14:19 Hypertension; Depression; hb - PSHx: 14:19 Bladder Lift; hb - Immunization history:: Client reports receiving the 2nd dose of the Covid vaccine, Flu vaccine is up to date. - Social history:: Smoking status: Patient denies any tobacco usage or history of. ROS: 16:25 Constitutional: Negative for fever, chills, and weight loss, Eyes: Negative for injury, snw pain, redness, and discharge, ENT: Negative for injury, pain, and discharge, Neck: Negative for injury, pain, and swelling, Cardiovascular: Negative for chest pain, palpitations, and edema, Respiratory: Negative for shortness of breath, cough, wheezing, and pleuritic chest pain, Abdomen/GI: Negative for abdominal pain, nausea, vomiting, diarrhea, and constipation, 16:25 MS/Extremity: Negative for injury and deformity, Skin: Negative for injury, rash, and discoloration, Psych: Negative for depression, anxiety, suicide ideation, homicidal ideation, and hallucinations, 16:25 Back: Positive for flank pain, on the left, 16:25 : Positive for urinary symptoms, flank pain, urinary frequency, small amounts, burning with urination, 16:25 Neuro: Positive for headache, Exam: 16:24 Constitutional: This is a well developed, well nourished patient who is awake, alert, snw and in no acute distress. Head/Face: Normocephalic, atraumatic. Eyes: Pupils equal round and reactive to light, extra-ocular motions intact. Lids and lashes normal. Conjunctiva and sclera are non-icteric and not injected. Cornea within normal limits. Periorbital areas with no swelling, redness, or edema. ENT: Nares patent. No nasal discharge, no septal abnormalities noted. Tympanic membranes are normal and external auditory canals are clear. Oropharynx with no redness, swelling, or masses, exudates, or evidence of obstruction, uvula midline. Mucous membranes moist. Neck: Trachea midline, no thyromegaly or masses palpated, and no cervical lymphadenopathy. Supple, full range of motion without nuchal rigidity, or vertebral point tenderness. No Meningismus. Chest/axilla: Normal chest wall appearance and motion. Nontender with no deformity. No lesions are appreciated. Cardiovascular: Regular rate and rhythm with a normal S1 and S2. No gallops, murmurs, or rubs. Normal PMI, no JVD. No pulse deficits. Respiratory: Lungs have equal breath sounds bilaterally, clear to auscultation and percussion. No rales, rhonchi or wheezes noted. No increased work of breathing, no retractions or nasal flaring. Abdomen/GI: Soft, non-tender, with normal bowel sounds. No distension or tympany. No guarding or rebound. No evidence of tenderness throughout. 16:24 Skin: Warm, dry with normal turgor. Normal color with no rashes, no lesions, and no evidence of cellulitis. MS/ Extremity: Pulses equal, no cyanosis. Neurovascular intact. Full, normal range of motion. Neuro: Awake and alert, GCS 15, oriented to person, place, time, and situation. Cranial nerves II-XII grossly intact. Motor strength 5/5 in all extremities. Sensory grossly intact. Cerebellar exam normal. Normal gait. Psych: Awake, alert, with orientation to person, place and time. Behavior, mood, and affect are within normal limits. 16:24 Back: CVA tenderness, that is moderate, is noted on the left, Vital Signs: 14:17 BP 128 / 80; Pulse 77; Resp 16; Temp 98.9(O); Pulse Ox 99% on R/A; Weight 88 kg; Height hb 5 ft. 5 in. ; Pain 7/10; 16:30 BP 121 / 71; Pulse 66; Resp 18; Pulse Ox 95% on R/A; db 17:00 BP 121 / 79; Pulse 67; Resp 18; Pulse Ox 96% on R/A; db 18:00 BP 116 / 77; Pulse 61; Resp 18; Pulse Ox 98% on R/A; db 14:17 Body Mass Index 32.28 (88.00 kg, 165.1 cm) hb 14:17 Pain Scale: Adult hb MDM: 15:59 Patient medically screened. snw 16:26 Differential diagnosis: bacterial infection, UTI, pyelo, kidney stone. Data reviewed: snw vital signs, nurses notes, lab test result(s), radiologic studies. I considered the following discharge prescriptions or medication management in the emergency department Medications were administered in the Emergency Department. See MAR. Counseling: I had a detailed discussion with the patient and/or guardian regarding the historical points, exam findings, and any diagnostic results supporting the discharge/admit diagnosis, lab results, radiology results, the need for outpatient follow up, for definitive care. 09/10 14:06 Order name: Urine W/Microscopic (UAM); Complete Time: 15:28 snw 09/10 15:25 Order name: Urine Culture EDMS 09/10 16:07 Order name: CBC with Diff; Complete Time: 17:42 snw 09/10 16:07 Order name: CMP; Complete Time: 17:52 snw 09/10 16:07 Order name: Lipase; Complete Time: 17:52 snw 09/10 16:07 Order name: Blood Culture Adult (2) snw 09/10 16:07 Order name: Stone Protocol CT; Complete Time: 17:04 snw 09/10 16:07 Order name: IV Saline Lock; Complete Time: 17:15 snw 09/10 16:07 Order name: Labs collected and sent; Complete Time: 17:16 snw Administered Medications: 17:00 Drug: NS 0.9% IV 1000 ml IV at 1 bolus Per protocol; 1000 mL bolus Route: IV; Rate: 1 db bolus; Site: right antecubital; 18:20 Follow up: Response: No adverse reaction; IV Status: Completed infusion; IV Intake: db 1000ml 17:00 Drug: Famotidine IVP 20 mg IVP once; dilute with 10 mL 0.9% NaCl; give over 2 minutes db Route: IVP; Site: right antecubital; 18:20 Follow up: Response: No adverse reaction db 17:00 Drug: TORadol - Ketorolac IVP 15 mg IVP once Route: IVP; Site: right antecubital; db 18:20 Follow up: Response: No adverse reaction db 17:00 Drug: morphine IVP or IV 4 mg IVP once over 4 mins Route: IVP; Infused Over: 4 mins; db Site: right antecubital; 18:20 Follow up: Response: No adverse reaction db 17:16 Drug: Rocephin IV 1 grams IV at calculated rate once; Given slow IV push per pharmacy db instructions Route: IV; Rate: calculated rate; Site: right antecubital; 17:50 Follow up: Response: No adverse reaction; IV Status: Completed infusion; IV Intake: 50mldb Disposition Summary: 09/10/23 17:53 Discharge Ordered Notes: Location: Home snw Condition: Stable snw Diagnosis - UTI/ Urinary tract infection, site not specified snw Followup: snw - With: Emergency Department - When: As needed - Reason: Worsening of condition Followup: snw - With: Private Physician - When: 2 - 3 days - Reason: Recheck today's complaints, Continuance of care, Re-evaluation by your physician Discharge Instructions: - Discharge Summary Sheet snw - Urinary Tract Infection, Adult snw - Rehydration, Adult snw Forms: - Work release form snw - Medication Reconciliation Form snw - Thank You Letter snw - Antibiotic Education snw - Prescription Opioid Use snw - Patient Portal Instructions snw - Leadership Thank You Letter snw Prescriptions: - cefdinir 300 mg Oral capsule - take 2 capsule ORAL route daily for 10 days; 20 capsule; Refills: 0, Product snw Selection Permitted - Mobic 7.5 mg Oral Tablet - take 1 tablet ORAL route once daily take with food; 20 tablet; Refills: 0, snw Product Selection Permitted - promethazine 25 mg Oral Tablet - take 1 tablet ORAL route every 6 hours As needed; 20 tablet; Refills: 0, snw Product Selection Permitted Signatures: Dispatcher [employer] Dominique Richard FNP-C ASSEMBLER TRUCK TRAILER-Csnw Nikki Obando RN RN hb Deisy Strange RN RN db Corrections: (The following items were deleted from the chart) 14: 14:19 PMHx: Hypertensive disorder; hb hb 14:20 14:19 PMHx: Depression (vaginal SX); hb hb 14:20 14:19 PMHx: Myocardial infarction; hb hb 14:20 14:19 PSHx: vaginal SX; hb hb 14: 14:19 PSHx: Bladder Lift (vaginal SX); hb hb
--- NOTE | 2023-09-10 17:53 | ER ---
Nurse's Notes [facility] Name: Mi Ortiz Age: 58 yrs Sex: Female : 1965 Arrival Date: 09/10/2023 Time: 13:55 Bed 18 Private MD: Diagnosis: UTI/ Urinary tract infection, site not specified Presentation: 09/10 14:17 Chief complaint: Left flank pain and pain with urination x 2 days. Reports she feels hb like "something is trying to come out.". Coronavirus screen: At this time, the client does not indicate any symptoms associated with coronavirus-19. Ebola Screen: No symptoms or risks identified at this time. Initial Sepsis Screen: Does the patient meet any 2 criteria? No. Patient's initial sepsis screen is negative. Does the patient have a suspected source of infection? No. Patient's initial sepsis screen is negative. Risk Assessment: Do you want to hurt yourself or someone else? Patient reports no desire to harm self or others. Onset of symptoms was September 09, 2023. 14:17 Method Of Arrival: Ambulatory hb 14:17 Acuity: CARMEN 3 hb Historical: - Allergies: 14:19 amoxicillin-pot clavulanate; hb - Home Meds: 14:19 lisinopril 5 mg oral tablet daily [Active]; unknown antidepressant [Active]; hb - PMHx: 14:19 Hypertension; Depression; hb - PSHx: 14:19 Bladder Lift; hb - Immunization history:: Client reports receiving the 2nd dose of the Covid vaccine, Flu vaccine is up to date. - Social history:: Smoking status: Patient denies any tobacco usage or history of. Screenin:24 [facility] ED Fall Risk Assessment (Adult) History of falling in the last 3 months, db including since admission No falls in past 3 months (0 pts) Confusion or Disorientation No (0 pts) Intoxicated or Sedated No (0 pts) Impaired Gait No (0 pts) Mobility Assist Device Used No (0 pt) Altered Elimination No (0 pt) Score/Fall Risk Level 0 - 2 = Low Risk Oriented to surroundings, Maintained a safe environment. Abuse screen: Denies threats or abuse. Denies injuries from another. Nutritional screening: No deficits noted. Tuberculosis screening: No symptoms or risk factors identified. Assessment: 17:20 Reassessment: Patient appears in no apparent distress at this time. Patient and/or db family updated on plan of care and expected duration. Pain level reassessed. Patient is alert, oriented x 3, equal unlabored respirations, skin warm/dry/pink. General: Appears in no apparent distress. comfortable, Behavior is calm, cooperative. Pain: Complains of pain in back and abdomen. Neuro: Level of Consciousness is awake, alert, obeys commands, Oriented to person, place, time, situation, Speech is normal. Respiratory: Airway is patent Respiratory effort is even, unlabored, Respiratory pattern is regular, symmetrical. 18:00 Reassessment: Patient appears in no apparent distress at this time. Patient and/or db family updated on plan of care and expected duration. Pain level reassessed. Patient is alert, oriented x 3, equal unlabored respirations, skin warm/dry/pink. General: Appears in no apparent distress. comfortable, Behavior is calm, cooperative. Neuro: Level of Consciousness is awake, alert, obeys commands, Oriented to person, place, time, situation. Vital Signs: 14:17 BP 128 / 80; Pulse 77; Resp 16; Temp 98.9(O); Pulse Ox 99% on R/A; Weight 88 kg; Height hb 5 ft. 5 in. ; Pain 7/10; 16:30 BP 121 / 71; Pulse 66; Resp 18; Pulse Ox 95% on R/A; db 17:00 BP 121 / 79; Pulse 67; Resp 18; Pulse Ox 96% on R/A; db 18:00 BP 116 / 77; Pulse 61; Resp 18; Pulse Ox 98% on R/A; db 14:17 Body Mass Index 32.28 (88.00 kg, 165.1 cm) hb 14:17 Pain Scale: Adult hb ED Course: 13:58 Patient arrived in ED. im 14:06 Dominique Issa FNP-C [facility]. snw 14:06 Tameka Johns MD is Attending Physician. snw 14:18 Triage completed. hb 14:20 Arm band placed on. hb 15:24 Deisy Strange, RN is Primary Nurse. db 16:[address] In Process Unspecified. EDMS 17:00 Inserted saline lock: 24 gauge in right antecubital area, using aseptic technique. db Blood collected. 17:24 Patient has correct armband on for positive identification. Bed in low position. Call db light in reach. Side rails up X 1. Pulse ox on. NIBP on. Warm blanket given. 18:15 Provided Education on: DISCHARGE. db 18:15 No provider procedures requiring assistance completed. IV discontinued, intact, db bleeding controlled, No redness/swelling at site. Administered Medications: 17:00 Drug: NS 0.9% IV 1000 ml IV at 1 bolus Per protocol; 1000 mL bolus Route: IV; Rate: 1 db bolus; Site: right antecubital; 18:20 Follow up: Response: No adverse reaction; IV Status: Completed infusion; IV Intake: db 1000ml 17:00 Drug: Famotidine IVP 20 mg IVP once; dilute with 10 mL 0.9% NaCl; give over 2 minutes db Route: IVP; Site: right antecubital; 18:20 Follow up: Response: No adverse reaction db 17:00 Drug: TORadol - Ketorolac IVP 15 mg IVP once Route: IVP; Site: right antecubital; db 18:20 Follow up: Response: No adverse reaction db 17:00 Drug: morphine IVP or IV 4 mg IVP once over 4 mins Route: IVP; Infused Over: 4 mins; db Site: right antecubital; 18:20 Follow up: Response: No adverse reaction db 17:16 Drug: Rocephin IV 1 grams IV at calculated rate once; Given slow IV push per pharmacy db instructions Route: IV; Rate: calculated rate; Site: right antecubital; 17:50 Follow up: Response: No adverse reaction; IV Status: Completed infusion; IV Intake: 50mldb Medication: 18:15 VIS not applicable for this client. db Intake: 17:50 IV: 50ml; Total: 50ml. db 18:20 IV: 1000ml; Total: 1050ml. db Outcome: 17:53 Discharge ordered by . snoswaldo 18:15 Discharged to home ambulatory, db 18:15 Condition: stable 18:15 Discharge instructions given to patient, Instructed on discharge instructions, follow up and referral plans. Prescriptions given X 3, 18:20 Patient left the ED. db Signatures: Dispatcher [employer] EDUT Dominique Issa, ENVELOPE FOLDING MACHINE OPERATOR-C ENVELOPE FOLDING MACHINE OPERATOR-Csnw Obando, Nikki, RN Deisy Loya RN Tory Wiseman Corrections: (The following items were deleted from the chart) 14: 14:19 PMHx: Hypertensive disorder; hb hb 14: 14:19 PMHx: Depression (vaginal SX); hb hb 14: 14:19 PMHx: Myocardial infarction; hb hb 14: 14:19 PSHx: vaginal SX; hb hb 14: 14:19 PSHx: Bladder Lift (vaginal SX); hb hb
[2023-09-10 22:02] VITALS: TEMP 98.9
[2023-09-10 22:25] VITALS: BP 116/77; O2SAT 98
== END ==
LOC: ER 13:55
DX: N39.0 Urinary tract infection, site not specified (principal); I10 Essential (primary) hypertension; Z88.1 Allergy status to other antibiotic agents
CPT/HCPCS: 87040 ×2; 87088; 85025; 81001; 87086; 36415; 83690; 80053; 76377; 74176; J7030; J0696

== ENCOUNTER → 2023-10-16 | Emergency (ER) | payer BC ==
[~2023-10-16] MED LIST changes: -CEFTRIAXONE 1000 MG/VIAL ONE; -FAMOTIDINE 20 MG/2 ML VIAL IV ONE; -MORPHINE 4 MG/ML SYR ONE; -NA CHLORIDE 0.9% 1,000 ML ONE; -NA CHLORIDE 0.9% 50 ML ONE; +ONDANSETRON 4 MG/2 ML VIAL ONE
[2023-10-16 21:28] LABS: Specific Gravity 1.009 (1.005-1.030); Urine Bilirubin NEGATIVE (Negative); Urine Blood Negative (Negative); Urine Clarity Clear (Clear); Urine Color Colorless (Yellow); Urine Glucose NEGATIVE (Negative); Urine Protein NEGATIVE (Negative); Urine Urobilinogen Normal (Normal); Urine pH 5.5 (5.0-7.0)
[2023-10-16 21:35] LABS: Absolute Eosinophils 0.4 K/uL (0-0.5); Absolute Lymphocytes (CBC) 2.3 K/uL (0.7-4.9); Basophils % 0.7 % (0-1.3); Eosinophils % 6.5 % (0-4.4); Hematocrit 36.2 % (36.0-45.0); Hemoglobin 11.7 g/dL (12.0-15.0); Lymphocytes % 35.7 % (15.3-44.8); MCV 80.2 fL (80-100); MPV 8.2 fL (7.6-11.3); Platelets 263 thou/uL (152-406); RBC Red Blood Cell Count 4.51 M/uL (3.86-4.86)
[2023-10-16 21:44] LABS: Albumin 3.8 g/dL (3.4-5.0); Albumin/Globulin Ratio 0.8 (1.1-1.8); Bilirubin Total 0.6 mg/dL (0.2-1.0); Globulin 4.5 g/dL (2.3-3.5); Protein, Total 8.3 g/dL (6.4-8.2)
--- NOTE | 2023-10-16 22:19 | RAD REPORT ---
EXAM DESCRIPTION: CT - Abdomen Pelvis W Contrast - 10/16/2023 9:59 pm CLINICAL HISTORY: Abdominal pain COMPARISON: September 2023 TECHNIQUE: Computed axial tomography of the abdomen pelvis was obtained. 100 cc Isovue-300 was admin istered intravenously. Oral contrast was not requested which limits evaluation of bowel and appendix All CT scans are performed using dose optimization technique as appropriate and may include automated exposure control or mA/KV adjustment according to patient size. FINDINGS: The liver, spleen, pancreas, adrenal and kidneys appear unremarkable. There is no evidence of diverticulitis. A moderate amount of stool within the colon Normal appendix. Hysterectomy. No adnexal mass IMPRESSION: Moderate amount stool within the colon
--- NOTE | 2023-10-16 22:47 | EDPHYS ---
Physician Documentation [facility] Name: Mi Ortiz Age: 58 yrs Sex: Female : 1965 Arrival Date: 10/16/2023 Time: 19:13 Bed 11 Private MD: None, None ED Physician Zeke Puckett HPI: 10/15 19:58 This 58 yrs old Female presents to ER via Ambulatory with complaints of ec2 Abdominal Pain. 19:58 Patient arrives today for evaluation of left-sided abdominal pain. Patient reports ec2 approximately 2 weeks of symptoms, intermittent, worsened with positional movements. Patient reports no issues with p.o. intake, no vomiting, no diarrhea, no issues with urinary problems. Patient reports history of hysterectomy.. Historical: - Allergies: 19:54 amoxicillin-pot clavulanate; kd3 - PMHx: 19:54 Depression; Hypertension; kd3 - PSHx: 19:54 Bladder lift; kd3 - Immunization history:: Adult Immunizations up to date. - Social history:: Smoking status: unknown Smoking status: Patient denies any tobacco usage or history of. ROS: 19:58 Constitutional: as per hpi ec2 Exam: 19:58 Constitutional: GEN: NAD Head: atraumatic Eyes: EOMI Ears: External ears are ec2 normal. CV: regular rate LUNGS: no respiratory distress ABD: non-distended, soft, left lower quadrant TTP, no guarding, not rigid, negative flank bilaterally. SKIN: no evidence of rashes MSK: no evidence of trauma NEURO: moves all extremities equally Vital Signs: 19:51 Pulse 59; Resp 17; Temp 98.6(O); Pulse Ox 100% on R/A; kd3 19:51 Pulse 84; kd3 19:55 BP 155 / 97; kd3 23:00 BP 149 / 91; Pulse 81; Resp 16 S; Temp 98.1(TE); Pulse Ox 100% on R/A; lg3 MDM: 19:58 Data reviewed: vital signs. ED course: Patient arrives today for evaluation of ec2 abdominal pain. Examination remarkable for well-appearing nontoxic dividual with abdominal findings as noted above. Will obtain lab work, CT imaging and reassess the patient. Currently evaluating for process such as pancreatitis, diverticulitis, lower suspicion for pathology.. 19:59 Patient medically screened. ec2 20:30 Transition of care: After a detail discussion of the patient's case, care is ec2 transferred to Zeke Puckett MD. ED course: Patient signed out with pending labs and CT imaging.. 22:43 Differential diagnosis: nephrolithiasis, pyelonephritis, UTI, diverticulitis, sp4 pancreatitis. ED course: EXAM DESCRIPTION: CT - Abdomen Pelvis W Contrast - 10/16/2023 9:59 pm CLINICAL HISTORY: Abdominal pain COMPARISON: September 2023 TECHNIQUE: Computed axial tomography of the abdomen pelvis was obtained. 100 cc Isovue-300 was administered intravenously. Oral contrast was not requested which limits evaluation of bowel and appendix All CT scans are performed using dose optimization technique as appropriate and may include automated exposure control or mA/KV adjustment according to patient size. FINDINGS: The liver, spleen, pancreas, adrenal and kidneys appear unremarkable. There is no evidence of diverticulitis. A moderate amount of stool within the colon Normal appendix. Hysterectomy. No adnexal mass IMPRESSION: Moderate amount stool within the colon. 22:43 ED course: EXAM DESCRIPTION: CT - Stone Protocol - 09/10/2023 4:32 pm Prior Record review sp4 CLINICAL HISTORY: Abdominal pain. Left flank pain COMPARISON: January 2023 TECHNIQUE: Computed axial tomography of the abdomen pelvis was obtained without oral or IV contrast. Lack of IV and oral contrast limits evaluation of solid organs, appendix, bowel, and vessels. Coronal reformatted images were obtained and reviewed. All CT scans are performed using dose optimization technique as appropriate and may include automated exposure control or mA/KV adjustment according to patient size. FINDINGS: A renal calculus is not seen. An ureteral calculus is not noted. A bladder calculus is not present. No hydronephrosis The liver, spleen, pancreas and adrenals appear grossly normal There is no evidence of diverticulitis. The appendix appears normal No adnexal mass IMPRESSION: Negative for a genitourinary calculus. 10/15 19:58 Order name: CBC with Diff; Complete Time: 22:05 ec2 10/15 19:58 Order name: CMP; Complete Time: 22:05 ec2 10/15 19:58 Order name: Lipase; Complete Time: 22:05 ec2 10/15 19:58 Order name: Urinalysis w/ reflexes; Complete Time: 22:05 ec2 10/15 19:58 Order name: CT Abd/Pelvis - IV Contrast Only; Complete Time: 22:26 ec2 10/15 19:58 Order name: IV Saline Lock; Complete Time: 21:09 ec2 10/15 19:58 Order name: Labs collected and sent; Complete Time: 21:09 ec2 Administered Medications: 21:13 Drug: TORadol - Ketorolac IVP 15 mg IVP once Route: IVP; Site: left forearm; lg3 23:01 Follow up: Response: No adverse reaction; Marked relief of symptoms lg3 21:13 Drug: Ondansetron IVP 4 mg IVP once; over 2 minutes Route: IVP; Site: left forearm; lg3 23:01 Follow up: Response: No adverse reaction lg3 Disposition Summary: 10/16/23 22:46 Discharge Ordered Notes: Location: Home sp4 Problem: new sp4 Symptoms: have improved sp4 Condition: Stable sp4 Diagnosis - Constipation, unspecified sp4 - Lower abdominal pain, unspecified sp4 Followup: sp4 - With: Daniel Bautista MD - When: 10 - 14 days - Reason: Recheck today's complaints Discharge Instructions: - Discharge Summary Sheet sp4 - Constipation, Adult, [id number] sp4 Forms: - Patient Portal Instructions sp4 Prescriptions: - Senokot-S 8.6-50 mg Oral tablet - take 1 tablet ORAL route 2 times per day PRN constipation; 60 tablet; Refills: sp4 0, Product Selection Permitted - dicyclomine 20 mg Oral tablet - take 1 tablet ORAL route every 8 hours PRN abdominal discomfort; 30 tablet; sp4 Refills: 0, Product Selection Permitted Signatures: Dispatcher [employer] Veronica Maria RN RN lg3 Zoë Holly RN RN essie3 Zeke Puckett MD MD sp4 Jesus Palm MD MD ec2
--- NOTE | 2023-10-16 22:47 | ER ---
Nurse's Notes [facility] Name: Mi Ortiz Age: 58 yrs Sex: Female : 1965 Arrival Date: 10/16/2023 Time: 19:13 Bed 11 Private MD: None, None Diagnosis: Constipation, unspecified;Lower abdominal pain, unspecified Presentation: 10/15 19:51 Chief complaint:. Chief complaint: Patient states: I am having some from the left lower kd3 stomach up to the left upper stomach. I am having a lot of cramping. I have not had N/V/D. It is painful when i lay down. I sometimes have left sided pelvic pain. I have had an umbilical therapy. Coronavirus screen: unknown. Ebola Screen: No symptoms or risks identified at this time. Initial Sepsis Screen: Does the patient meet any 2 criteria? No. Patient's initial sepsis screen is negative. Does the patient have a suspected source of infection? No. Patient's initial sepsis screen is negative. Risk Assessment: Do you want to hurt yourself or someone else? Patient reports no desire to harm self or others. 19:51 Method Of Arrival: Ambulatory kd3 19:55 Coronavirus screen: Vaccine status: Patient reports receiving the 2nd dose of the covid kd3 vaccine. Onset of symptoms was October 16, 2023. 19:55 Acuity: CARMEN 3 kd3 Triage Assessment: 19:54 General: Appears in no apparent distress. Behavior is calm, cooperative. Pain: kd3 Complains of pain in abdomen. Historical: - Allergies: 19:54 amoxicillin-pot clavulanate; kd3 - PMHx: 19:54 Depression; Hypertension; kd3 - PSHx: 19:54 Bladder lift; kd3 - Immunization history:: Adult Immunizations up to date. - Social history:: Smoking status: unknown Smoking status: Patient denies any tobacco usage or history of. Screenin:14 [facility] ED Fall Risk Assessment (Adult) History of falling in the last 3 months, lg3 including since admission No falls in past 3 months (0 pts). Abuse screen: Denies threats or abuse. Denies injuries from another. Nutritional screening: No deficits noted. Tuberculosis screening: No symptoms or risk factors identified. Assessment: 21:14 General: Appears in no apparent distress. comfortable, Behavior is calm, cooperative. lg3 Pain: Complains of pain in abdomen. Neuro: No deficits noted. Mayes Agitation-Sedation Scale (RASS): 0 - Alert and Calm Level of Consciousness is awake, alert, obeys commands, Oriented to person, place, time, situation. Cardiovascular: No deficits noted. Denies chest pain, shortness of breath, Capillary refill < 3 seconds Clubbing of nail beds is absent JVD is absent Patient's skin is warm and dry. Respiratory: No deficits noted. Airway is patent Respiratory effort is even, unlabored, Respiratory pattern is regular, symmetrical, Breath sounds are clear bilaterally. GI: Abdomen is round non-distended, Reports lower abdominal pain, upper abdominal pain, cramping, diarrhea, nausea, vomiting. : No deficits noted. No signs and/or symptoms were reported regarding the genitourinary system. EENT: No deficits noted. No signs and/or symptoms were reported regarding the EENT system. Derm: No deficits noted. No signs and/or symptoms reported regarding the dermatologic system. Skin is intact, is healthy with good turgor, Skin is dry, Skin is normal, Skin temperature is warm. Musculoskeletal: No deficits noted. No signs and/or symptoms reported regarding the musculoskeletal system. Circulation, motion, and sensation intact. Range of motion: intact in all extremities. 22:44 Reassessment: Patient appears in no apparent distress at this time. No changes from lg3 previously documented assessment. Patient and/or family updated on plan of care and expected duration. Pain level reassessed. Patient is alert, oriented x 3, equal unlabored respirations, skin warm/dry/pink. Vital Signs: 19:51 Pulse 59; Resp 17; Temp 98.6(O); Pulse Ox 100% on R/A; kd3 19:51 Pulse 84; kd3 19:55 BP 155 / 97; kd3 23:00 BP 149 / 91; Pulse 81; Resp 16 S; Temp 98.1(TE); Pulse Ox 100% on R/A; lg3 ED Course: 19:18 Patient arrived in ED. es 19:18 None, None is Private Physician. es 19:22 Jesus Palm MD is Attending Physician. ec2 19:55 Triage completed. kd3 19:55 Arm band placed on right wrist. kd3 20:31 Attending Physician role handed off by Jesus Palm MD ec2 20:31 Zeke Puckett MD is Attending Physician. ec2 21:04 Urinalysis w/ reflexes Sent. lg3 21:09 Initial lab(s) drawn, by me, sent to lab. Inserted saline lock: 22 gauge in left kd3 forearm, using aseptic technique. Blood collected. 21:12 Veronica Lopez, RN is Primary Nurse. lg3 21:13 CBC with Diff Sent. lg3 21:13 CMP Sent. lg3 21:13 Lipase Sent. lg3 21:14 Patient has correct armband on for positive identification. Placed in gown. Bed in low lg3 position. Call light in reach. Side rails up X 1. Client placed on continuous cardiac and pulse oximetry monitoring. NIBP monitoring applied. Door closed. Noise minimized. Warm blanket given. Family accompanied patient. 21:14 Patient maintains SpO2 saturation greater than 95% on room air. lg3 22:01 CT Abd/Pelvis - IV Contrast Only In Process Unspecified. EDMS 22:44 Daniel Bautista MD is Referral Physician. sp4 23:02 No provider procedures requiring assistance completed. IV discontinued, intact, lg3 bleeding controlled, No redness/swelling at site. Pressure dressing applied. Administered Medications: 21:13 Drug: TORadol - Ketorolac IVP 15 mg IVP once Route: IVP; Site: left forearm; lg3 23:01 Follow up: Response: No adverse reaction; Marked relief of symptoms lg3 21:13 Drug: Ondansetron IVP 4 mg IVP once; over 2 minutes Route: IVP; Site: left forearm; lg3 23:01 Follow up: Response: No adverse reaction lg3 Medication: 21:16 VIS not applicable for this client. kd3 Outcome: 22:46 Discharge ordered by . sp4 23:02 Discharged to home ambulatory, with significant other, lg3 23:02 Condition: stable 23:02 Discharge instructions given to patient, Instructed on discharge instructions, follow up and referral plans. medication usage, Demonstrated understanding of instructions, follow-up care, medications, Prescriptions given X 2, 23:02 Patient left the ED. lg3 Signatures: Dispatcher [employer] EDID Crista Gutierrez Veronica Lopez RN RN 3 Zoë Holly RN RN kd3 Zeke Puckett MD MD sp4 Jesus Palm MD MD ec2 Corrections: (The following items were deleted from the chart) 19:54 19:51 Chief complaint: Patient states: I am having some from the left lower stomach up kd3 to the left upper stomach. I am having a lot of cramping. I have not had N/V/D. It is painful when i lay down. I sometimes have left sided pelvic pain. kd3
[2023-10-17 00:01] VITALS: BP 149/91; TEMP 98.1; O2SAT 100
== END ==
LOC: ER 19:13
DX: K59.00 Constipation, unspecified (principal); Z88.1 Allergy status to other antibiotic agents
CPT/HCPCS: 85025; 36415; 81003; 83690; 80053; 74177; 96375; 96374; 99285; Q9967; J2405

== ENCOUNTER → 2023-10-27 | Emergency (ER) | payer BC ==
[~2023-10-27] MED LIST changes: +BISACODYL 10 MG RECTAL SUPP ONE; +FAMOTIDINE 20 MG/2 ML VIAL IV ONE; -KETOROLAC 30 MG/ML INJ ONE; +LACTULOSE 20 GM/30 ML UCUP ONE; +NA CHLORIDE 0.9% 1,000 ML ONE
[2023-10-27 09:56] LABS: Absolute Eosinophils 0.2 K/uL (0-0.5); Absolute Lymphocytes (CBC) 1.4 K/uL (0.7-4.9); Absolute Monocytes 0.3 K/uL (0.1-1.3); Absolute Neutrophil 1.8 K/uL (1.8-8.0); Basophils % 0.8 % (0-1.3); Eosinophils % 6.6 % (0-4.4); Hematocrit 35.9 % (36.0-45.0); Hemoglobin 11.7 g/dL (12.0-15.0); Lymphocytes % 36.6 % (15.3-44.8); MCH 25.8 pg (27.0-35.0); MCHC 32.6 g/dL (32.0-36.0); Monocytes % 8.3 % (3.3-12.3); Neutrophils % 47.7 % (41.7-73.7); Nucleated Red Blood Cells % 0.1 % (0-0); Platelets 267 thou/uL (152-406); RBC Red Blood Cell Count 4.54 M/uL (3.86-4.86); Red Cell Distribution Width 15.5 % (12.1-15.2)
[2023-10-27 10:15] LABS: Albumin 3.5 g/dL (3.4-5.0); Albumin/Globulin Ratio 0.8 (1.1-1.8); Anion Gap 6.8 mEq/L (5.0-15.0); Bilirubin Total 0.7 mg/dL (0.2-1.0); Globulin 4.4 g/dL (2.3-3.5); Potassium 3.8 mEq/L (3.5-5.1); Protein, Total 7.9 g/dL (6.4-8.2)
--- NOTE | 2023-10-27 10:35 | RAD REPORT ---
EXAM DESCRIPTION: CT - Abdomen Pelvis W Contrast - 10/27/2023 9:56 am CLINICAL HISTORY: Abdominal pain COMPARISON: October 16, 2023 TECHNIQUE: Computed axial tomography of the abdomen pelvis was obtained. 100 cc Isovue-300 was admin istered intravenously. Oral contrast was not requested which limits evaluation of bowel and appendix All CT scans are performed using dose optimization technique as appropriate and may include automated exposure control or mA/KV adjustment according to patient size. FINDINGS: The liver, spleen, pancreas, adrenal and kidneys appear unremarkable. There is no evidence of diverticulitis. A moderate amount of stool within the colon Normal appendix. Hysterectomy. No adnexal mass IMPRESSION: No acute abnormality is displayed.
[2023-10-27 11:24] LABS: Specific Gravity > 1.030 (1.005-1.030); Urine Bilirubin NEGATIVE (Negative); Urine Blood Negative (Negative); Urine Clarity Clear (Clear); Urine Color Colorless (Yellow); Urine Glucose NEGATIVE (Negative); Urine Ketones NEGATIVE (Negative); Urine Microscopic Reflex YN NO UMIC; Urine Nitrite NEGATIVE (Negative); Urine Protein NEGATIVE (Negative); Urine Urobilinogen Normal (Normal)
--- NOTE | 2023-10-27 11:53 | ER ---
Nurse's Notes [facility] Name: Mi Ortiz Age: 58 yrs Sex: Female : 1965 Arrival Date: 10/27/2023 Time: 09:09 Bed 14 Private MD: Diagnosis: Abdominal tenderness;Constipation;Obesity, unspecified Presentation: 10/26 09:14 Chief complaint: Patient states: left sided abd pain, reports being seen here for same aa5 complaint recently and was DX with constipation. 09:14 Onset of symptoms was October 2023. aa5 09:14 Acuity: CARMEN 3 aa5 09:14 Method Of Arrival: Ambulatory aa5 09:14 Coronavirus screen: At this time, the client does not indicate any symptoms associated aa5 with coronavirus-19. Ebola Screen: Patient denies travel to an Ebola-affected area in the 21 days before illness onset. Initial Sepsis Screen: Does the patient meet any 2 criteria? No. Patient's initial sepsis screen is negative. Does the patient have a suspected source of infection? No. Patient's initial sepsis screen is negative. Risk Assessment: Do you want to hurt yourself or someone else? Patient reports no desire to harm self or others. Historical: - Allergies: 09:23 amoxicillin-pot clavulanate; aa5 - PMHx: 09:23 Depression; Hypertension; aa5 - PSHx: 09:23 Bladder lift; aa5 - Immunization history:: Adult Immunizations unknown. - Social history:: Smoking status: Patient denies any tobacco usage or history of. - Family history:: not pertinent. Screenin:40 [facility] ED Fall Risk Assessment (Adult) History of falling in the last 3 months, ko1 including since admission No falls in past 3 months (0 pts). Abuse screen: Denies threats or abuse. Denies injuries from another. Nutritional screening: No deficits noted. Tuberculosis screening: No symptoms or risk factors identified. Assessment: 10:04 General: Appears in no apparent distress. uncomfortable, Behavior is calm, cooperative, ko1 appropriate for age. Pain: Complains of pain in posterior aspect of left lateral abdomen and anterior aspect of left lateral abdomen. Neuro: No deficits noted. Cardiovascular: No deficits noted. Respiratory: No deficits noted. GI: Bowel sounds present X 4 quads. Abd is soft X 4 quads Reports lower abdominal pain. : No deficits noted. EENT: No deficits noted. Derm: No deficits noted. Musculoskeletal: No deficits noted. 12:31 General: Appears uncomfortable, Behavior is calm, cooperative, appropriate for age. me1 Pain: Complains of pain in anterior aspect of left lateral abdomen and posterior aspect of left lateral abdomen. Neuro: Level of Consciousness is awake, alert, obeys commands, Oriented to person, place, time, situation, Appropriate for age. Cardiovascular: Patient's skin is warm and dry. Respiratory: Respiratory effort is even, unlabored, Respiratory pattern is regular, symmetrical. GI: Bowel sounds present X 4 quads. Abd is soft X 4 quads. : No deficits noted. Derm: Skin is pink, warm \T\ dry. Musculoskeletal: No deficits noted. Vital Signs: 09:14 BP 119 / 79; Pulse 70; Resp 16 S; Temp 98(O); Pulse Ox 99% on R/A; Weight 134.26 kg aa5 (R); Height 5 ft. 5 in. (R); 10:12 BP 133 / 80; Pulse 58; Resp 14; Pulse Ox 99% ; ko1 11:43 BP 117 / 81; Pulse 62; Resp 15; Pulse Ox 99% ; ko1 12:30 BP 136 / 88; Pulse 63; Resp 16; Temp 98.4(O); Pulse Ox 99% on R/A; me1 09:14 Body Mass Index 49.26 (134.26 kg, 165.1 cm) aa5 Vitals: 10:04 Cardiac Rhythm Assessment Regular Sinus rhythm. ko1 ED Course: 09:11 Patient arrived in ED. mr 09:14 Arm band placed on. aa5 09:15 Marciano Olivas MD is Attending Physician. [facility] 09:17 Kelsy Samayoa, RN is Primary Nurse. ko1 09:25 Triage completed. aa5 09:40 Patient has correct armband on for positive identification. Allergy band placed. Placed ko1 in gown. Bed in low position. Call light in reach. Side rails up X2. Client placed on continuous cardiac and pulse oximetry monitoring. NIBP monitoring applied. ekg monitor tech on. Door closed. Noise minimized. Lights dimmed. Warm blanket given. 09:40 CBC with Diff Sent. ko1 09:40 CMP Sent. ko1 09:40 Lipase Sent. ko1 09:40 Inserted saline lock: 20 gauge in right forearm, using aseptic technique. Blood ko1 collected. 09:40 Initial lab(s) drawn, by me, sent to lab. EKG done, by ED staff, reviewed by Marciano Olivas MD. 09:58 CT Abd/Pelvis - IV Contrast Only In Process Unspecified. EDMS 11:00 Assisted to bathroom. ko1 11:00 Urine collected: clean catch specimen, clear. ko1 11:20 Urinalysis w/ reflexes Sent. ko1 11:53 Amanda Araiza MD is Referral Physician. jay 11:53 Referral Physician role handed off by Amanda Araiza MD jay 11:53 Miguel Queen MD is Referral Physician. jay 12:32 No provider procedures requiring assistance completed. IV discontinued, intact, me1 bleeding controlled, No redness/swelling at site. Pressure dressing applied. 12:33 Provided Education on: POC. Verbalized understanding. . me1 Administered Medications: 09:40 Drug: NS 0.9% IV 1000 ml IV at 1 bolus Per protocol; 1000 mL bolus Route: IV; Rate: 1 ko1 bolus; Site: right forearm; 11:51 Follow up: Response: No adverse reaction; IV Status: Completed infusion; IV Intake: ko1 1000ml 09:40 Drug: Famotidine IVP 20 mg IVP once; dilute with 10 mL 0.9% NaCl; give over 2 minutes ko1 Route: IVP; Site: right forearm; 11:52 Follow up: Response: No adverse reaction ko1 09:40 Drug: Ondansetron IVP 4 mg IVP once; over 2 minutes Route: IVP; Site: right forearm; ko1 11:51 Follow up: Response: No adverse reaction ko1 12:19 Drug: Lactulose PO 30 grams 45 ml PO once Volume: 45 ml; Route: PO; me1 12:30 Follow up: Response: No adverse reaction me1 12:19 Drug: Dulcolax SD Suppository 10 mg SD once Route: SD; me1 12:30 Follow up: Response: No adverse reaction me1 Medication: 12:33 VIS not applicable for this client. me1 Intake: 11:51 IV: 1000ml; Total: 1000ml. ko1 Outcome: 11:52 Discharge ordered by . jay 12:33 Discharged to home ambulatory, with significant other, me1 12:33 Condition: stable 12:33 Discharge instructions given to patient, significant other, Instructed on discharge instructions, follow up and referral plans. medication usage, Demonstrated understanding of instructions, follow-up care, medications, Prescriptions given X 4, 12:34 Patient left the ED. me1 Signatures: Dispatcher [employer] EDMarciano Kevin MD MD cha Rivera, Wendy, Reg Reg mr Tanya Chong, RN RN aa5 Kelsy Samayoa RN RN ko1 Ada Liang RN RN me1 Corrections: (The following items were deleted from the chart) 09: 09:23 PSHx: Bladder lift; aa5 aa5 09:27 09:14 Chief complaint: Patient states: left sided abd pain, reports being seen here for aa5 same complaint recently and was DX with constipation. aa5
--- NOTE | 2023-10-27 11:53 | EDPHYS ---
Physician Documentation [facility] Name: Mi Ortiz Age: 58 yrs Sex: Female : 1965 Arrival Date: 10/27/2023 Time: 09:09 Bed 14 Private MD: LEATHA Physician Marciano Olivas HPI: 10/26 10:06 This 58 yrs old Female presents to ER via Ambulatory with complaints of jay Abdominal Pain. 10:06 The patient presents with abdominal pain abdominal distention in the left upper jay quadrant, in the left lower quadrant. Onset: The symptoms/episode began/occurred 14 day(s) ago. The symptoms do not radiate. Associated signs and symptoms: none. Modifying factors: The symptoms are alleviated by nothing, the symptoms are aggravated by movement, pressure. Severity of pain: At its worst the pain was moderate in the emergency department the pain is unchanged. The patient has experienced similar episodes in the past, a few times. Historical: - Allergies: 09:23 amoxicillin-pot clavulanate; aa5 - PMHx: 09:23 Depression; Hypertension; aa5 - PSHx: 09:23 Bladder lift; aa5 - Immunization history:: Adult Immunizations unknown. - Social history:: Smoking status: Patient denies any tobacco usage or history of. - Family history:: not pertinent. ROS: 10:06 Constitutional: Negative for fever, chills, and weight loss, Eyes: Negative for injury, jay pain, redness, and discharge, ENT: Negative for injury, pain, and discharge, Neck: Negative for injury, pain, and swelling, Cardiovascular: Negative for chest pain, palpitations, and edema, Respiratory: Negative for shortness of breath, cough, wheezing, and pleuritic chest pain, Back: Negative for injury and pain, : Negative for injury, bleeding, discharge, and swelling, MS/Extremity: Negative for injury and deformity, Skin: Negative for injury, rash, and discoloration, Neuro: Negative for headache, weakness, numbness, tingling, and seizure, Psych: Negative for depression, anxiety, suicide ideation, homicidal ideation, and hallucinations, Allergy/Immunology: Negative for hives, rash, and allergies, Endocrine: Negative for neck swelling, polydipsia, polyuria, polyphagia, and marked weight changes, Hematologic/Lymphatic: Negative for swollen nodes, abnormal bleeding, and unusual bruising, 10:06 Abdomen/GI: Positive for abdominal pain, of the posterior aspect of left lateral abdomen, anterior aspect of left lateral abdomen, left upper quadrant and left lower quadrant, Exam: 10:06 Constitutional: This is a well developed, well nourished patient who is awake, alert, jay and in no acute distress. Head/Face: Normocephalic, atraumatic. Eyes: Pupils equal round and reactive to light, extra-ocular motions intact. Lids and lashes normal. Conjunctiva and sclera are non-icteric and not injected. Cornea within normal limits. Periorbital areas with no swelling, redness, or edema. ENT: Nares patent. No nasal discharge, no septal abnormalities noted. Tympanic membranes are normal and external auditory canals are clear. Oropharynx with no redness, swelling, or masses, exudates, or evidence of obstruction, uvula midline. Mucous membranes moist. Neck: Trachea midline, no thyromegaly or masses palpated, and no cervical lymphadenopathy. Supple, full range of motion without nuchal rigidity, or vertebral point tenderness. No Meningismus. Chest/axilla: Normal chest wall appearance and motion. Nontender with no deformity. No lesions are appreciated. Cardiovascular: Regular rate and rhythm with a normal S1 and S2. No gallops, murmurs, or rubs. Normal PMI, no JVD. No pulse deficits. Respiratory: Lungs have equal breath sounds bilaterally, clear to auscultation and percussion. No rales, rhonchi or wheezes noted. No increased work of breathing, no retractions or nasal flaring. Abdomen/GI: Soft, non-tender, with normal bowel sounds. No distension or tympany. No guarding or rebound. No evidence of tenderness throughout. Back: No spinal tenderness. No costovertebral tenderness. Full range of motion. Skin: Warm, dry with normal turgor. Normal color with no rashes, no lesions, and no evidence of cellulitis. MS/ Extremity: Pulses equal, no cyanosis. Neurovascular intact. Full, normal range of motion. Neuro: Awake and alert, GCS 15, oriented to person, place, time, and situation. Cranial nerves II-XII grossly intact. Motor strength 5/5 in all extremities. Sensory grossly intact. Cerebellar exam normal. Normal gait. Psych: Awake, alert, with orientation to person, place and time. Behavior, mood, and affect are within normal limits. 10:06 Abdomen/GI: Inspection: abdomen appears normal, Bowel sounds: normal, Palpation: mild abdominal tenderness, moderate abdominal tenderness, in the posterior aspect of left lateral abdomen, left upper quadrant and left lower quadrant, 12:00 ECG was reviewed by the Attending Physician. jay Vital Signs: 09:14 BP 119 / 79; Pulse 70; Resp 16 S; Temp 98(O); Pulse Ox 99% on R/A; Weight 134.26 kg aa5 (R); Height 5 ft. 5 in. (R); 10:12 BP 133 / 80; Pulse 58; Resp 14; Pulse Ox 99% ; ko1 11:43 BP 117 / 81; Pulse 62; Resp 15; Pulse Ox 99% ; ko1 12:30 BP 136 / 88; Pulse 63; Resp 16; Temp 98.4(O); Pulse Ox 99% on R/A; me1 09:14 Body Mass Index 49.26 (134.26 kg, 165.1 cm) aa5 MDM: 09:15 Patient medically screened. [facility] 10:10 Differential diagnosis: diverticulitis, gastritis, Mesenteric ischemia or infarction, jay non-specific abd pain, pancreatitis, Peptic Ulcer Disease, Perf. Duodenal Ulcer, Pyelonephritis, Ureterolithiasis, urinary tract infection. Data reviewed: vital signs, nurses notes. Consideration of Admission/Observation Escalation of care including admission/observation considered. I considered the following discharge prescriptions or medication management in the emergency department Medications were administered in the Emergency Department. See MAR. Test considered but Not performed: MRI: no mrcp. Care significantly affected by the following chronic conditions: Hypertension, Obesity, depression. Counseling: I had a detailed discussion with the patient and/or guardian regarding the historical points, exam findings, and any diagnostic results supporting the discharge/admit diagnosis, lab results, radiology results. 10/26 09:24 Order name: CBC with Diff; Complete Time: 11:48 [facility] 10/26 09:24 Order name: CMP; Complete Time: 11:48 [facility] 10/26 09:24 Order name: Lipase; Complete Time: 11:48 [facility] 10/26 09:24 Order name: Urinalysis w/ reflexes; Complete Time: 11:48 [facility] 10/26 09:24 Order name: CT Abd/Pelvis - IV Contrast Only; Complete Time: 11:48 [facility] 10/26 09:24 Order name: EKG; Complete Time: 09:25 [facility] 10/26 09:24 Order name: IV Saline Lock; Complete Time: 09:40 [facility] 10/26 09:24 Order name: Labs collected and sent; Complete Time: 09:40 [facility] 10/26 09:24 Order name: EKG - Nurse/Tech; Complete Time: 09:52 [facility] EC:00 Rate is 60 beats/min. Rhythm is regular. QRS [place] is Normal. SC interval is normal. QRS jay interval is normal. QT interval is normal. No Q waves. T waves are Normal. No ST changes noted. Clinical impression: Normal ECG and No evidence of ischemia. Interpreted by me. Reviewed by me. Administered Medications: 09:40 Drug: NS 0.9% IV 1000 ml IV at 1 bolus Per protocol; 1000 mL bolus Route: IV; Rate: 1 ko1 bolus; Site: right forearm; 11:51 Follow up: Response: No adverse reaction; IV Status: Completed infusion; IV Intake: ko1 1000ml 09:40 Drug: Famotidine IVP 20 mg IVP once; dilute with 10 mL 0.9% NaCl; give over 2 minutes ko1 Route: IVP; Site: right forearm; 11:52 Follow up: Response: No adverse reaction ko1 09:40 Drug: Ondansetron IVP 4 mg IVP once; over 2 minutes Route: IVP; Site: right forearm; ko1 11:51 Follow up: Response: No adverse reaction ko1 12:19 Drug: Lactulose PO 30 grams 45 ml PO once Volume: 45 ml; Route: PO; me1 12:30 Follow up: Response: No adverse reaction me1 12:19 Drug: Dulcolax SC Suppository 10 mg SC once Route: SC; me1 12:30 Follow up: Response: No adverse reaction me1 Disposition Summary: 10/27/23 11:52 Discharge Ordered Notes: Location: Home jay Problem: new jay Symptoms: have improved jay Condition: Stable jay Diagnosis - Abdominal tenderness jay - Constipation jay - Obesity, unspecified jay Followup: jay - With: Private Physician - When: 2 - 3 days - Reason: Recheck today's complaints, Continuance of care, Re-evaluation by your physician Followup: jay - With: Miguel Queen MD - When: 2 - 3 days - Reason: Recheck today's complaints, Continuance of care, Re-evaluation by your physician Discharge Instructions: - Discharge Summary Sheet [facility] - Abdominal Pain, Adult jay - Constipation, Adult jay - Obesity, Adult jay - Constipation, Adult, [id number] jay - Abdominal Pain, Adult, [id number] jay - Obesity, Adult, [id number] [facility] Forms: - Medication Reconciliation Form [facility] - Thank You Letter [facility] - Antibiotic Education [facility] - Prescription Opioid Use [facility] - Patient Portal Instructions [facility] - Leadership Thank You Letter [facility] Prescriptions: - Dulcolax (bisacodyl) 10 mg Rectal suppository - insert 1 suppository RECTAL route daily for 5 days; 5 suppository; Refills: 0, [facility] Product Selection Permitted - Zofran 4 mg Oral Tablet - take 1 tablet ORAL route every 12 hours As needed; 20 tablet; Refills: 0, [facility] Product Selection Permitted - Lactulose 10 gram/15 mL Oral solution - take 30 milliliters ORAL route once daily; 200 milliliter; Refills: 0, Product [facility] Selection Permitted - dicyclomine 20 mg Oral tablet - take 1 tablet ORAL route 4 times per day; 28 tablet; Refills: 0, Product [facility] Selection Permitted Signatures: Dispatcher [employer] Marciano Vallejo MD MD cha Calderon, Audri RN RN aa5 Kelsy Samayoa RN RN ko1 Ada Liang RN RN me1 Corrections: (The following items were deleted from the chart) 09:23 09:23 PSHx: Bladder lift; aaElena aa5
[2023-10-27 12:58] VITALS: BP 136/88; TEMP 98.4; O2SAT 99
--- NOTE | 2023-10-30 14:27 | EKG ---
Test Date: 2023-10-27 Test Time: 09:39:07 Sports Statistician: JEFF MEASUREMENT RESULTS: Intervals: Rate: 60 CO: 176 QRSD: 74 QT: 436 QTc: 436 [employer]: P: 74 CO: 176 QRS: 82 T: 75 INTERPRETIVE STATEMENTS: Normal sinus rhythm Normal ECG Compared to ECG 01/28/2020 02:11:06 No significant changes Electronically Signed On 10-30-23 14:17:05 CDT by Matt Green
== END ==
LOC: ER 09:09
DX: K59.00 Constipation, unspecified (principal); E66.9 Obesity, unspecified; Z68.42 Body mass index [BMI] 45.0-49.9, adult; Z88.1 Allergy status to other antibiotic agents
CPT/HCPCS: 96361; 93005; 85025; 36415; 81003; 83690; 80053; 74177; 96375; 96374; 99285; Q9967; J2405; J7030

== ENCOUNTER 2024-02-09 08:14 | Emergency (ER) | payer BC ==
[2024-02-09 09:13] LABS: Absolute Eosinophils 0.2 K/uL (0-0.5); Absolute Lymphocytes (CBC) 1.5 K/uL (0.7-4.9); Absolute Monocytes 0.4 K/uL (0.1-1.3); Absolute Neutrophil 2.3 K/uL (1.8-8.0); Basophils % 0.6 % (0-1.3); Hematocrit 36.9 % (36.0-45.0); Hemoglobin 11.4 g/dL (12.0-15.0); Lymphocytes % 33.6 % (15.3-44.8); MCH 24.9 pg (27.0-35.0); MCV 80.3 fL (80-100); MPV 8.1 fL (7.6-11.3); Monocytes % 9.9 % (3.3-12.3); Neutrophils % 51.9 % (41.7-73.7); Platelets 248 thou/uL (152-406); Red Cell Distribution Width 16.5 % (12.1-15.2)
[2024-02-09 09:21] LABS: PT Prothrombin Time 12.5 SECONDS (9.4-12.5); PTT, Activated Partial Thromb 36.2 SECONDS (24.3-36.9); Protime INR 1.14
[2024-02-09 09:43] LABS: Anion Gap 5.7 mEq/L (5.0-15.0); Potassium 3.7 mEq/L (3.5-5.1)
--- NOTE | 2024-02-09 10:13 | RAD REPORT ---
EXAM DESCRIPTION: CTAbdomen Pelvis W Contrast - 02/09/2024 9:56 am CLINICAL HISTORY: Abdominal pain. fall, LLQ pain ;Blunt trauma COMPARISON: Abdomen Pelvis W Contrast dated 12/26/2023; Abdomen Pelvis W Contrast dated 10/27/2023 ; Abdomen Pelvis W Contrast dated 10/16/2023; Abdomen Pelvis W Contrast dated 02/09/2022; Pelvis W/W o Cont dated 02/07/2024 TECHNIQUE: Biphasic CT imaging of the abdomen and pelvis was performed with 100 ml non-ionic IV cont rast. All CT scans are performed using dose optimization technique as appropriate and may include automated exposure control or mA/KV adjustment according to patient size. FINDINGS: The lung bases are clear.Small hiatal hernia. The liver, spleen, pancreas, adrenal glands and kidneys are within normal limits. No bowel obstruction, free air, free fluid or abscess. The appendix is normal. No evidence of signi ficant lymphadenopathy. No suspicious bony findings. Mild lower lumbar spondylosis. IMPRESSION: No acute intra-abdominal or pelvic finding.
--- NOTE | 2024-02-09 10:17 | ER ---
Nurse's Notes [facility] Name: Mi Ortiz Age: 58 yrs Sex: Female : 1965 Arrival Date: 02/09/2024 Time: 08:14 Bed 2 Private MD: Diagnosis: Abdominal tenderness, unspecified site;Contusion of abdominal wall, initial encounter Presentation: 02/08 08:24 Chief complaint: Patient states: LLQ abdominal pain after falling yesterday. States she ll1 has chronic abdominal pain for over 6 months. Coronavirus screen: Client denies travel out of the [place] in the last 14 days. At this time, the client does not indicate any symptoms associated with coronavirus-19. Ebola Screen: Patient denies travel to an Ebola-affected area in the 21 days before illness onset. Initial Sepsis Screen: Does the patient meet any 2 criteria? No. Patient's initial sepsis screen is negative. Does the patient have a suspected source of infection? No. Patient's initial sepsis screen is negative. Risk Assessment: Do you want to hurt yourself or someone else? Patient reports no desire to harm self or others. Onset of symptoms was February 08, 2024. 08:24 Method Of Arrival: Ambulatory ll1 08:24 Acuity: CARMEN 3 ll1 Triage Assessment: 08:25 General: Appears uncomfortable, Behavior is calm, cooperative, appropriate for age. ll1 Pain: Complains of pain in abdomen Pain currently is 8 out of 10 on a pain scale. Quality of pain is described as aching, crampy. GI: Reports lower abdominal pain. Historical: - Allergies: 08:24 amoxicillin-pot clavulanate; ll1 - PMHx: 08:24 Depression; Hypertension; ll1 - PSHx: 08:24 Bladder lift; ll1 - Immunization history:: Adult Immunizations up to date. - Infectious Disease History:: Denies. - Social history:: Smoking status: Patient denies any tobacco usage or history of. - Family history:: not pertinent. - Hospitalizations: : No recent hospitalization is reported. Screenin:24 [facility] ED Fall Risk Assessment (Adult) History of falling in the last 3 months, ph including since admission No falls in past 3 months (0 pts) Confusion or Disorientation No (0 pts) Intoxicated or Sedated No (0 pts) Impaired Gait No (0 pts) Mobility Assist Device Used No (0 pt) Altered Elimination No (0 pt) Score/Fall Risk Level 0 - 2 = Low Risk Oriented to surroundings, Maintained a safe environment, Hourly rounding (assess needs \T\ fall precautionary measures) done. Abuse screen: Denies threats or abuse. Denies injuries from another. Nutritional screening: No deficits noted. Tuberculosis screening: No symptoms or risk factors identified. Assessment: 08:30 General: Appears comfortable, Behavior is calm, cooperative. Pain: Complains of pain in aa5 right lower quadrant and left lower quadrant Pain radiates to anterior aspect of left lateral abdomen Pain currently is 7 out of 10 on a pain scale. Quality of pain is described as sharp, Pain began 6 months ago and got worse after fall yesterday. Is continuous, Aggravated by repositioning. Neuro: Level of Consciousness is awake, alert, obeys commands, Oriented to person, place, time, situation. Cardiovascular: Patient's skin is warm and dry. Respiratory: Airway is patent Respiratory effort is even, unlabored, Respiratory pattern is regular, symmetrical. GI: Abdomen is round non-distended, Bowel sounds present X 4 quads. Abd is soft X 4 quads Patient currently denies nausea, vomiting. : No signs and/or symptoms were reported regarding the genitourinary system. EENT: No signs and/or symptoms were reported regarding the EENT system. Derm: Skin is pink, warm \T\ dry. Musculoskeletal: Range of motion: intact in all extremities. Injury Description: Pt reports fall yesterday, reports she tripped and fell onto a [employer]orox bleach bottle. 10:14 Reassessment: Patient is alert, oriented x 3, equal unlabored respirations, skin aa5 warm/dry/pink. Pt ambulatory to restroom . 10:20 Reassessment: Patient is alert, oriented x 3, equal unlabored respirations, skin aa5 warm/dry/pink. 10:43 Reassessment: Patient is alert, oriented x 3, equal unlabored respirations, skin aa5 warm/dry/pink. Vital Signs: 08:24 BP 121 / 81; Pulse 63; Resp 16; Temp 98.3(O); Pulse Ox 97% on R/A; Weight 88.9 kg; ll1 Height 5 ft. 5 in. ; Pain 8/10; 09:30 BP 137 / 84; Pulse 60; Resp 18 S; Pulse Ox 98% on R/A; aa5 10:20 BP 127 / 82; Pulse 61; Resp 18 S; Pulse Ox 98% on R/A; aa5 08:24 Body Mass Index 32.62 (88.90 kg, 165.1 cm) ll1 08:24 Pain Scale: Adult ll1 ED Course: 08:17 Patient arrived in ED. mg5 08:20 Colt Gusman MD is Attending Physician. rn 08:21 Arm band placed on Patient placed in an exam room, on a stretcher. ph 08:23 Tanya Chong, LOGAN is Primary Nurse. aa5 08:24 Patient has correct armband on for positive identification. Bed in low position. Call ph light in reach. Side rails up X 1. Pulse ox on. NIBP on. Door closed. Noise minimized. 08:25 Triage completed. ll1 08:26 Warm blanket given. ll1 08:50 Initial lab(s) drawn, by sd, sent to lab. Inserted saline lock: 22 gauge in right aa5 forearm, using aseptic technique. Blood collected. 09:58 CT Abd/Pelvis - IV Contrast Only In Process Unspecified. EDMS 10:43 No provider procedures requiring assistance completed. IV discontinued, intact, aa5 bleeding controlled, No redness/swelling at site. Pressure dressing applied. Administered Medications: 10:38 Drug: Ketorolac IVP 15 mg IVP once Route: IVP; Site: right forearm; aa5 10:43 Follow up: Response: No adverse reaction aa5 Medication: 08:24 VIS not applicable for this client. ph Outcome: 10:17 Discharge ordered by . rn 10:43 Discharged to home ambulatory, aa5 10:43 Condition: stable 10:43 Discharge instructions given to patient, Instructed on discharge instructions, follow up and referral plans. medication usage, Demonstrated understanding of instructions, follow-up care, medications, Prescriptions given X 1, 10:43 Patient left the ED. aa5 Signatures: Dispatcher [employer] EDMS Colt Gusman MD MD rn Calderon, Audri, RN RN aa5 Deepika Calvillo RN RN Lala Kim RN RN [facility] Rashmi Estrella mg5
--- NOTE | 2024-02-09 10:17 | EDPHYS ---
Physician Documentation [facility] Name: Mi Ortiz Age: 58 yrs Sex: Female : 1965 Arrival Date: 02/09/2024 Time: 08:14 Bed 2 Private MD: ED Physician Colt Gusman HPI: 02/08 08:32 This 58 yrs old Female presents to ER via Ambulatory with complaints of Pain. rn 08:32 The patient presents with abdominal pain in the left lower quadrant. Onset: The rn symptoms/episode began/occurred yesterday. Associated signs and symptoms: Pertinent negatives: nausea and vomiting, blood in stools, chest pain, constipation, fever. Modifying factors: The symptoms are alleviated by nothing, the symptoms are aggravated by movement, touching the area. Severity of pain: At its worst the pain was moderate in the emergency department the pain is unchanged. The patient has experienced similar episodes in the past. Patient reports has had chronic abdominal pain for at least 6 months, worse across lower abdomen, no etiology found at this time despite multiple ER visits and specialist follow-up. Patient returns today because she fell yesterday and landed on bottle of cleaning liquid. Patient reports worsening of the left lower quadrant abdominal pain. Does not take blood thinners.. Historical: - Allergies: 08:24 amoxicillin-pot clavulanate; ll1 - PMHx: 08:24 Depression; Hypertension; ll1 - PSHx: 08:24 Bladder lift; ll1 - Immunization history:: Adult Immunizations up to date. - Infectious Disease History:: Denies. - Social history:: Smoking status: Patient denies any tobacco usage or history of. - Family history:: not pertinent. - Hospitalizations: : No recent hospitalization is reported. ROS: 08:32 Constitutional: Negative for fever, chills, and weight loss, Cardiovascular: Negative rn for chest pain, palpitations, and edema, Respiratory: Negative for shortness of breath, cough, wheezing, and pleuritic chest pain, Abdomen/GI: Positive for abdominal pain MS/Extremity: Negative for injury and deformity, Skin: Negative for injury, rash, and discoloration, Neuro: Negative for headache, weakness, numbness, tingling, and seizure, Exam: 08:32 Constitutional: This is a well developed, well nourished patient who is awake, alert, rn and in no acute distress. Cardiovascular: Regular rate and rhythm. No pulse deficits. Respiratory: No increased work of breathing, no retractions or nasal flaring. Abdomen/GI: Soft, mild left lower quadrant tenderness, no ecchymosis or hematoma, no peritoneal signs Vital Signs: 08:24 BP 121 / 81; Pulse 63; Resp 16; Temp 98.3(O); Pulse Ox 97% on R/A; Weight 88.9 kg; ll1 Height 5 ft. 5 in. ; Pain 8/10; 09:30 BP 137 / 84; Pulse 60; Resp 18 S; Pulse Ox 98% on R/A; aa5 10:20 BP 127 / 82; Pulse 61; Resp 18 S; Pulse Ox 98% on R/A; aa5 08:24 Body Mass Index 32.62 (88.90 kg, 165.1 cm) ll1 08:24 Pain Scale: Adult ll1 MDM: 08:20 Patient medically screened. rn 10:15 Differential diagnosis: non-specific abd pain, Blunt abdominal trauma, intraperitoneal rn hematoma, subcutaneous hematoma. Data reviewed: vital signs, nurses notes, lab test result(s), radiologic studies, CT scan, and as a result, I will discharge patient. Counseling: I had a detailed discussion with the patient and/or guardian regarding the historical points, exam findings, and any diagnostic results supporting the discharge/admit diagnosis, lab results, radiology results, the need for outpatient follow up, to return to the emergency department if symptoms worsen or persist or if there are any questions or concerns that arise at home. Special discussion: I discussed with the patient/guardian in detail that at this point there is no indication for admission to the hospital. It is understood, however, that if the symptoms persist or worsen the patient needs to return immediately for re-evaluation. ED course: No acute findings and workup, specifically negative for traumatic findings. MRI of pelvis obtained 2 days ago at this facility reviewed and also negative for any acute pathology. I have personally reviewed all of the results, including but not limited to blood tests and imaging deemed necessary to safely discharge this patient at this time. All results given to and printed out for patient. I personally went over all the results with the patient and answered all questions. Patient will follow-up with PCP and or specialist as discussed. Return precautions given and understood.. 02/08 08:28 Order name: CBC with Diff; Complete Time: 09:46 rn 02/08 08:28 Order name: Basic Metabolic Panel; Complete Time: 09:46 rn 02/08 08:28 Order name: Lipase; Complete Time: 09:46 rn 02/08 08:28 Order name: Protime (+inr); Complete Time: 09:46 rn 02/08 08:28 Order name: Ptt, Activated; Complete Time: 09:46 rn 02/08 08:28 Order name: CT Abd/Pelvis - IV Contrast Only; Complete Time: 10:14 rn 02/08 08:28 Order name: IV Start; Complete Time: 09:05 rn Administered Medications: 10:38 Drug: Ketorolac IVP 15 mg IVP once Route: IVP; Site: right forearm; aa5 10:43 Follow up: Response: No adverse reaction aa5 Disposition Summary: 02/09/24 10:17 Discharge Ordered Notes: Location: Home rn Problem: new rn Symptoms: have improved rn Condition: Stable rn Diagnosis - Abdominal tenderness, unspecified site rn - Contusion of abdominal wall, initial encounter rn Followup: rn - With: Private Physician - When: As needed - Reason: Recheck today's complaints, Re-evaluation by your physician Discharge Instructions: - Discharge Summary Sheet rn - Abdominal Pain, Adult rn - Contusion rn Forms: - Medication Reconciliation Form rn - Antibiotic precision grinder external - Prescription Opioid Use rn - Patient Portal Instructions rn - Leadership Thank You Letter rn Prescriptions: - Tramadol 50 mg Oral Tablet - take 1 tablet ORAL route every 8 hours as needed; 12 tablet; Refills: 0, rn Product Selection Permitted Signatures: Dispatcher [employer] EDGA Colt Gusman MD MD rn Calderon, Audri RN RN aa5 Lala Kim RN RN ll1 Corrections: (The following items were deleted from the chart) 08:28 08:28 CBC+H.LAB.BRZ ordered. EDMS EDMS 08:28 08:28 BASIC METABOLIC PANEL+C.LAB.BRZ ordered. EDMS EDMS 08:28 08:28 LIPASE+C.LAB.BRZ ordered. EDMS EDMS 08:28 08:28 PROTIME (+INR)+COAG.LAB.BRZ ordered. EDMS EDMS 08:28 08:28 PTT, ACTIVATED+COAG.LAB.BRZ ordered. EDMS EDMS 08:28 08:28 Abdomen Pelvis W Con+CT.RAD.BRZ ordered. EDMS EDMS
[2024-02-09] MEDS ORDERED: KETOROLAC 30 MG/ML INJ ONE (10:28)
[2024-02-09 10:56] VITALS: BP 121/81; TEMP 98.3; O2SAT 97
== END 2024-02-09 10:43 | disposition home or self-care (01) ==
LOC: ER 08:14
DX: S30.1XXA Contusion of abdominal wall, initial encounter (principal)
CPT/HCPCS: 85025; 80048; 36415; 85610; 85730; 83690; 74177; 96374; 99284; Q9967

== ENCOUNTER 2024-03-29 16:04 | Emergency (ER) | payer BC ==
[2024-03-29] MEDS ORDERED: HYDROCODONE/APAP 7.5/325 MG TAB ONE (16:30)
--- NOTE | 2024-03-29 17:03 | RAD REPORT ---
EXAM DESCRIPTION: RAD - Knee Right 3 View - 03/29/2024 4:54 pm CLINICAL HISTORY: PAIN COMPARISON: <Comparisons> FINDINGS: No fracture, dislocation or joint effusion.
--- NOTE | 2024-03-29 17:04 | RAD REPORT ---
EXAM DESCRIPTION: RAD - Foot Left 3 View - 03/29/2024 4:54 pm CLINICAL HISTORY: PAIN COMPARISON: <Comparisons> FINDINGS: Large posterior calcaneal spur. No fracture or dislocation is seen.
--- NOTE | 2024-03-29 17:21 | ER ---
Nurse's Notes [facility] Name: Mi Ortiz Age: 58 yrs Sex: Female : 1965 Arrival Date: 03/29/2024 Time: 16:04 Bed IW1 Private MD: Diagnosis: Contusion of left foot;Sprain of medial collateral ligament of right knee Presentation: 03/29 16:26 Chief complaint: Patient states: she fell in her house on Monday. reports right knee kc6 and left foot pain. Coronavirus screen: At this time, the client does not indicate any symptoms associated with coronavirus-19. Ebola Screen: No symptoms or risks identified at this time. Initial Sepsis Screen: Does the patient meet any 2 criteria? No. Patient's initial sepsis screen is negative. Does the patient have a suspected source of infection? No. Patient's initial sepsis screen is negative. Risk Assessment: Do you want to hurt yourself or someone else? Patient reports no desire to harm self or others. Onset of symptoms was March 29, 2024. 16:26 Method Of Arrival: Ambulatory 6 16:26 Acuity: CARMEN 4 kc6 Triage Assessment: 16:27 General: Appears in no apparent distress. comfortable, well groomed, well developed, kc6 Behavior is calm, cooperative, appropriate for age. Pain: Complains of pain in left foot and right knee Pain currently is 10 out of 10 on a pain scale. EENT: No signs and/or symptoms were reported regarding the EENT system. Neuro: Level of Consciousness is awake, alert, obeys commands, Oriented to person, place, time, situation, Appropriate for age. Cardiovascular: Capillary refill < 3 seconds. Respiratory: Airway is patent Trachea midline Respiratory effort is even, unlabored, Respiratory pattern is regular, symmetrical. GI: No signs and/or symptoms were reported involving the gastrointestinal system. : No signs and/or symptoms were reported regarding the genitourinary system. Derm: No signs and/or symptoms reported regarding the dermatologic system. Skin is intact, is healthy with good turgor, Skin is pink, warm \T\ dry. Musculoskeletal: Circulation, motion, and sensation intact. Capillary refill < 3 seconds, Range of motion: intact in all extremities. Historical: - Allergies: 16:27 amoxicillin-pot clavulanate; kc6 - PMHx: 16:27 Depression; Hypertension; kc6 - PSHx: 16:27 Bladder lift; kc6 - Immunization history:: Adult Immunizations up to date. - Infectious Disease History:: Denies. - Social history:: Smoking status: Patient denies any tobacco usage or history of. Screenin:07 [facility] ED Fall Risk Assessment (Adult) History of falling in the last 3 months, kc6 including since admission Yes- single mechanical fall (1 pt) Confusion or Disorientation No (0 pts) Intoxicated or Sedated No (0 pts) Impaired Gait No (0 pts) Mobility Assist Device Used No (0 pt) Altered Elimination No (0 pt) Score/Fall Risk Level 0 - 2 = Low Risk. Abuse screen: Denies threats or abuse. Denies injuries from another. Nutritional screening: No deficits noted. Tuberculosis screening: No symptoms or risk factors identified. Assessment: 16:27 Reassessment: please see triage. kc6 Vital Signs: 16:26 BP 130 / 92; Pulse 67; Resp 16 S; Temp 98.2(O); Pulse Ox 100% on R/A; Weight 88.45 kg kc6 (R); Height 5 ft. 5 in. (R); Pain 10/10; 16:26 Body Mass Index 32.45 (88.45 kg, 165.1 cm) kc6 16:26 Pain Scale: Adult kc6 ED Course: 16:06 Patient arrived in ED. ra3 16:21 Amber Delgado [facility] sb4 16:21 Colt Gusman MD is Attending Physician. sb4 16:27 Triage completed. kc6 16:27 Arm band placed on. kc6 16:56 Knee Right 3 View XRAY In Process Unspecified. EDMS 16:56 Foot Left 3 View XRAY In Process Unspecified. EDMS 17:08 Patient has correct armband on for positive identification. kc6 17:20 Kodak Bennett MD is Referral Physician. sb4 17:29 No provider procedures requiring assistance completed. Patient did not have IV access kc6 during this emergency room visit. Administered Medications: 16:34 Drug: Hydrocodone-Acetaminophen PO (7.5 mg-325 mg) 1 tabs PO once Route: PO; kc6 17:08 Follow up: Response: No adverse reaction; Pain is decreased; RASS: Alert and Calm (0) kc6 Medication: 17:29 VIS not applicable for this client. kc6 Outcome: 17:20 Discharge ordered by . sb4 17:29 Discharged to home ambulatory, kc6 17:29 Condition: good 17:29 Discharge instructions given to patient, Instructed on discharge instructions, follow up and referral plans. no drinking with medication, no driving heavy equipment, medication usage, Demonstrated understanding of instructions, follow-up care, medications, Prescriptions given X 2, 17:29 Patient left the ED. kc6 Signatures: Dispatcher [employer] Ange Hdz RN RN kc6 Amber Delgado, PA-C PA-C sb4 Marcella Cuellar ra3
--- NOTE | 2024-03-29 17:21 | EDPHYS ---
Physician Documentation [facility] Name: Mi Ortiz Age: 58 yrs Sex: Female : 1965 Arrival Date: 03/29/2024 Time: 16:04 Bed IW1 Private MD: ED Physician Colt Gusman HPI: 03/29 16:31 This 58 yrs old Female presents to ER via Ambulatory with complaints of Fall sb4 Injury, Knee Injury. 16:31 Details of fall: The patient fell from an upright position, while walking. Onset: The sb4 symptoms/episode began/occurred 5 day(s) ago. Associated injuries: The patient sustained left foot and right knee. The patient has not experienced similar symptoms in the past. The patient has not recently seen a physician. Historical: - Allergies: 16:27 amoxicillin-pot clavulanate; kc6 - PMHx: 16:27 Depression; Hypertension; kc6 - PSHx: 16:27 Bladder lift; kc6 - Immunization history:: Adult Immunizations up to date. - Infectious Disease History:: Denies. - Social history:: Smoking status: Patient denies any tobacco usage or history of. ROS: 16:31 Constitutional: Negative for fever, chills, and weight loss, sb4 16:31 MS/extremity: Positive for injury or acute deformity, pain, swelling, tenderness, of the left foot and right knee, 16:31 All other systems are negative, Exam: 17:28 Constitutional: This is a well developed, well nourished patient who is awake, alert, sb4 and in no acute distress. Head/Face: Normocephalic, atraumatic. Eyes: Extra-ocular motions intact. Periorbital areas with no swelling, redness, or edema. ENT: Mucous membranes moist. Skin: Warm, dry with normal turgor. Normal color with no rashes, no lesions, and no evidence of cellulitis. 17:28 Musculoskeletal/extremity: Joints: the right knee displays painful range of motion, Weight bearing: able to fully bear weight, 17:47 Musculoskeletal/extremity: Circulation is intact in all extremities. Pulses: are normal sb4 with no appreciated deficits, Perfusion: the extremity is normally perfused throughout, Sensation intact. tenderness left foot, medial aspect of distal first metatarsal. Vital Signs: 16:26 BP 130 / 92; Pulse 67; Resp 16 S; Temp 98.2(O); Pulse Ox 100% on R/A; Weight 88.45 kg kc6 (R); Height 5 ft. 5 in. (R); Pain 10/10; 16:26 Body Mass Index 32.45 (88.45 kg, 165.1 cm) kc6 16:26 Pain Scale: Adult kc6 MDM: 16:22 Patient medically screened. sb4 17:47 Data reviewed: vital signs, nurses notes, radiologic studies, and as a result, I will sb4 discharge patient. Counseling: I had a detailed discussion with the patient and/or guardian regarding the historical points, exam findings, and any diagnostic results supporting the discharge/admit diagnosis, radiology results, to return to the emergency department if symptoms worsen or persist or if there are any questions or concerns that arise at home. 03/29 16:30 Order name: Knee Right 3 View XRAY; Complete Time: 17:05 sb4 03/29 16:30 Order name: Foot Left 3 View XRAY; Complete Time: 17:05 sb4 Administered Medications: 16:34 Drug: Hydrocodone-Acetaminophen PO (7.5 mg-325 mg) 1 tabs PO once Route: PO; kc6 17:08 Follow up: Response: No adverse reaction; Pain is decreased; RASS: Alert and Calm (0) kc6 Disposition: 17:32 Co-signature as Attending Physician, Colt Gusman MD I reviewed the patient's care rn provided by the Advanced Practice Provider and agree with the diagnosis and treatment plan. Disposition Summary: 03/29/24 17:20 Discharge Ordered Notes: Location: Home sb4 Problem: an ongoing problem sb4 Symptoms: have improved sb4 Condition: Stable sb4 Diagnosis - Contusion of left foot sb4 - Sprain of medial collateral ligament of right knee sb4 Followup: sb4 - With: Kodak Bennett MD - When: 1 week - Reason: Further diagnostic work-up, Recheck today's complaints, Re-evaluation by your physician Discharge Instructions: - Discharge Summary Sheet sb4 - Foot Contusion, [id number] sb4 - Knee Sprain, Adult, [id number] sb4 Forms: - Patient Portal Instructions sb4 - Leadership Thank You Letter sb4 Prescriptions: - meloxicam 7.5 mg Oral tablet - take 1 tablet ORAL route daily; 14 tablet; Refills: 0, Product Selection sb4 Permitted - Cyclobenzaprine 5 mg Oral Tablet - take 1 tablet ORAL route 3 times per day As needed; 15 tablet; Refills: 0, sb4 Product Selection Permitted Signatures: Dispatcher [employer] Colt Bolivar MD MD rn Campbell, Kaitlyn, RN RN kc6 Amber Delgado PA-C PA-C sb4
[2024-03-29 17:33] VITALS: BP 130/92; TEMP 98.2; O2SAT 100
== END 2024-03-29 17:29 | disposition home or self-care (01) ==
LOC: ER 16:04
DX: S83.411A Sprain of medial collateral ligament of right knee, initial encounter (principal); S90.32XA Contusion of left foot, initial encounter; W18.30XA Fall on same level, unspecified, initial encounter
CPT/HCPCS: 99283

== ENCOUNTER 2024-05-22 16:04 | Emergency (ER) | payer BC ==
[2024-05-22] MEDS ORDERED: IBUPROFEN 400 MG TAB ONE (16:26)
[2024-05-22] MEDS ORDERED: HYDROCODONE/APAP 7.5/325 MG TAB ONE (16:26)
--- NOTE | 2024-05-22 17:21 | RAD REPORT ---
EXAMINATION: XR RIGHT ANKLE CLINICAL INDICATION: . PAIN TECHNIQUE:Two view radiograph of the right ankle were obtained. COMPARISON: No prior exam. FINDINGS: No bone or joint abnormality detected. Small posterior calcaneal spur.
--- NOTE | 2024-05-22 17:21 | RAD REPORT ---
EXAMINATION: XR LEFT ANKLE CLINICAL INDICATION: Female, 58 years old. PAIN TECHNIQUE: 3 view radiograph of the left ankle were obtained. COMPARISON: No prior exam. FINDINGS: Lucency is seen at the base of the fifth metatarsal which could represent a Peters fracture. Dedicated left foot radiographs may be helpful. Prominent posterior calcaneal spur and distal Achilles tendon calcification.
--- NOTE | 2024-05-22 17:22 | RAD REPORT ---
EXAMINATION: XR RIGHT FOOT CLINICAL INDICATION: Female, 58 years old. PAIN TECHNIQUE: Multiple views of the right foot were obtained. COMPARISON: No prior exam. FINDINGS: Subtle cortical irregularity is seen at the base of the proximal phalanx of the fifth toe. Subtle fracture in this location is a possibility. Advise correlation with clinical point tenderness. Elsewhere no fracture is suspected. Small posterior calcaneal spur.
--- NOTE | 2024-05-22 17:23 | RAD REPORT ---
EXAMINATION: XR RIGHT KNEE CLINICAL INDICATION: Female, 58 years old. PAIN TECHNIQUE: Multiple views of the right knee were obtained. COMPARISON: No prior exam. FINDINGS: No bone or joint abnormality seen.
--- NOTE | 2024-05-22 18:42 | RAD REPORT ---
EXAMINATION: XR LEFT FOOT CLINICAL INDICATION: fall TECHNIQUE: Multiple projections of the left foot were obtained. COMPARISON: No prior exam. FINDINGS: No fracture seen specifically at the base of the fifth metatarsal or elsewhere. Moderate po sterior calcaneal spur. Mild area of calcification distal Achilles tendon.
--- NOTE | 2024-05-22 18:48 | EDPHYS ---
Physician Documentation [facility] Name: Mi Ortiz Age: 58 yrs Sex: Female : 1965 Arrival Date: 05/22/2024 Time: 16:04 Bed 12 Private MD: ED Physician Marciano Olivas HPI: 05/22 16:23 This 58 yrs old Female presents to ER via Wheelchair with complaints of Fall cp Injury. 16:23 Details of fall: The patient fell from an upright position, while walking, and struck a cp tile surface. Onset: The symptoms/episode began/occurred just prior to arrival. Associated injuries: The patient sustained right knee and right ankle and right foot, left ankle. 16:23 Severity of symptoms: in the emergency department the symptoms are unchanged, despite cp home interventions. Historical: - Allergies: 16:15 amoxicillin-pot clavulanate; ll1 - PMHx: 16:15 Depression; Hypertension; ll1 - PSHx: 16:15 Bladder lift; ll1 - Immunization history:: Adult Immunizations up to date. - Infectious Disease History:: Denies. - Social history:: Smoking status: Patient denies any tobacco usage or history of. ROS: 16:30 Constitutional: Negative for body aches, chills, fever, poor PO intake, cp 16:30 Eyes: Negative for injury, pain, redness, and discharge, cp 16:30 Neck: Negative for pain with movement, pain at rest, stiffness, 16:30 Cardiovascular: Negative for chest pain, 16:30 Respiratory: Negative for cough, shortness of breath, wheezing, 16:30 Abdomen/GI: Negative for abdominal pain, 16:30 Back: Negative for pain at rest, pain with movement, 16:30 MS/extremity: Positive for pain, tenderness, of the right knee and right ankle and right foot and left ankle, 16:30 Neuro: Negative for altered mental status, headache, loss of consciousness, numbness, syncope, near syncope, 16:30 All other systems are negative, Exam: 16:35 Constitutional: The patient appears in no acute distress, alert, awake, non-toxic, well cp developed, well nourished, uncomfortable, 16:35 Head/Face: Normocephalic, atraumatic. cp 16:35 Neck: ROM/movement: is normal, is supple, without pain, no range of motions limitations, 16:35 Chest/axilla: Inspection: normal, 16:35 Cardiovascular: Rate: normal, 16:35 Respiratory: the patient does not display signs of respiratory distress, Respirations: normal, no use of accessory muscles, no retractions, labored breathing, is not present, Breath sounds: are clear throughout, no decreased breath sounds, no stridor, no wheezing, 16:35 Abdomen/GI: Exam negative for discomfort, distension, guarding, Inspection: abdomen appears normal, 16:35 Back: pain, is absent, ROM is normal, 16:35 Musculoskeletal/extremity: Extremities: noted in the right knee: pain, tenderness, There is no evidence of decreased ROM, deformity, noted in the right ankle: pain, tenderness, no evidence of decreased ROM, deformity, noted in the right foot: pain, tenderness, no evidence of decreased ROM, deformity, Noted in left ankle: pain, tenderness, no evidence of decreased ROM, deformity, Pulses: noted to be 2+ in the right dorsalis pedis artery and left dorsalis pedis artery, 16:35 Neuro: Orientation: to person, place \T\ time. Mentation: is normal, Motor: moves all fours, strength is normal, Sensation: is normal, Vital Signs: 16:16 BP 143 / 89; Pulse 71; Resp 16; Temp 97.6; Pulse Ox 100% ; Weight 86.18 kg; Height 5 ll1 ft. 5 in. ; Pain 9/10; 16:16 Body Mass Index 31.62 (86.18 kg, 165.1 cm) ll1 16:16 Pain Scale: Adult ll1 MDM: 16:11 Medical Screening Exam initiated cp 17:00 Differential diagnosis: closed head injury, contusion, fracture, laceration, multiple cp trauma. 18:47 Data reviewed: vital signs, nurses notes, radiologic studies, plain films, and as a cp result, I will discharge patient. 18:47 I considered the following discharge prescriptions or medication management in the cp emergency department Medications were administered in the Emergency Department. See MAR. Counseling: I had a detailed discussion with the patient and/or guardian regarding the historical points, exam findings, and any diagnostic results supporting the discharge/admit diagnosis, radiology results, to return to the emergency department if symptoms worsen or persist or if there are any questions or concerns that arise at home. Response to treatment: the patient's symptoms have markedly improved after treatment, and as a result, I will discharge patient. 05/22 16:25 Order name: XRAY Knee RIGHT 3 view; Complete Time: 18:26 cp 05/22 18:26 Interpretation: Report reviewed. cp 05/22 16:25 Order name: XRAY Ankle RIGHT 3 view; Complete Time: 18:26 cp 05/22 18:26 Interpretation: Report reviewed. cp 05/22 16:25 Order name: XRAY Foot RIGHT 3 View; Complete Time: 18:26 cp 05/22 18:27 Interpretation: Report reviewed. cp 05/22 16:25 Order name: XRAY Ankle LEFT 3 view; Complete Time: 18:26 cp 05/22 18:27 Interpretation: Report reviewed. cp 05/22 17:50 Order name: XRAY Foot LEFT 3 View; Complete Time: 18:45 cp 05/22 18:45 Interpretation: Reviewed report. cp 05/22 16:25 Order name: Ice pack; Complete Time: 16:32 cp 05/22 18:30 Order name: Walking boot: right foot; Complete Time: 19:21 cp 05/22 18:30 Order name: Misc. Order: narayan tape right fourth and fifth toes; Complete Time: 19:21 cp Administered Medications: 16:32 Drug: Ibuprofen PO 800 mg PO once Route: PO; mb9 17:30 Follow up: Response: No adverse reaction cm10 16:32 Drug: Hydrocodone-Acetaminophen PO (7.5 mg-325 mg) 1 tabs PO once; RASS on ADMIN: mb9 Combtv4, Very Agttd3, Agttd2, Rstlss1, AlertClm0, Drwsy-1, Lt Sdtn-2, Mod Sdtn-3, Dp Sdtn-4, UnArsble-5 Route: PO; 17:30 Follow up: Response: No adverse reaction; RASS: Alert and Calm (0) cm10 Disposition Summary: 05/22/24 18:48 Discharge Ordered Notes: Location: Home cp Problem: new cp Symptoms: have improved cp Condition: Stable cp Diagnosis - Fracture of proximal phalanx of lesser toe(s) - right small toe cp - Pain in right knee cp - Pain in ankle and joints of foot - bilateral cp - Fall on same level, unspecified cp Followup: cp - With: Kodak Bennett MD - When: 1 week - Reason: pain continues Discharge Instructions: - Discharge Summary Sheet cp - How to Use a Knee Brace cp - Toe Fracture cp - Acute Knee Pain, Adult cp - Ankle Pain cp Forms: - Medication Reconciliation Form cp - Antibiotic Education cp - Prescription Opioid Use cp - Patient Portal Instructions cp - Leadership Thank You Letter cp Prescriptions: - Anaprox DS 550 mg Oral Tablet - take 1 tablet ORAL route every 12 hours As needed; 20 tablet; Refills: 0, cp Product Selection Permitted Signatures: Dispatcher [employer] EDMS Marciano Pearson PA PA cp Lala Kim RN RN ll1 Wendy Shields RN RN mb9 Carolyn Sparks RN RN cm10
--- NOTE | 2024-05-22 18:48 | ER ---
Nurse's Notes [facility] Name: Mi Ortiz Age: 58 yrs Sex: Female : 1965 Arrival Date: 05/22/2024 Time: 16:04 Bed 12 Private MD: Diagnosis: Fracture of proximal phalanx of lesser toe(s)-right small toe;Pain in right knee;Pain in ankle and joints of foot-bilateral;Fall on same level, unspecified Presentation: 05/22 16:16 Chief complaint: Patient states: Slipped on wet surface while cleaning 2 hours [employer]. L ll1 ankle pain, and R knee pain, R ankle, and R toe pain since. Coronavirus screen: Client denies travel out of the [place] in the last 14 days. At this time, the client does not indicate any symptoms associated with coronavirus-19. Ebola Screen: Patient denies travel to an Ebola-affected area in the 21 days before illness onset. Initial Sepsis Screen: Does the patient meet any 2 criteria? No. Patient's initial sepsis screen is negative. Does the patient have a suspected source of infection? No. Patient's initial sepsis screen is negative. Risk Assessment: Do you want to hurt yourself or someone else? Patient reports no desire to harm self or others. Onset of symptoms was May 22, 2024. 16:16 Method Of Arrival: Wheelchair ll1 16:16 Acuity: CARMEN 4 ll1 Triage Assessment: 16:16 General: Appears uncomfortable, Behavior is calm, cooperative, appropriate for age. ll1 Pain: Complains of pain in right leg and left leg. Musculoskeletal: Reports pain in right leg and left leg. Historical: - Allergies: 16:15 amoxicillin-pot clavulanate; ll1 - PMHx: 16:15 Depression; Hypertension; ll1 - PSHx: 16:15 Bladder lift; ll1 - Immunization history:: Adult Immunizations up to date. - Infectious Disease History:: Denies. - Social history:: Smoking status: Patient denies any tobacco usage or history of. Screenin:36 [facility] ED Fall Risk Assessment (Adult) History of falling in the last 3 months, mb9 including since admission Yes- single mechanical fall (1 pt) Confusion or Disorientation No (0 pts) Intoxicated or Sedated No (0 pts) Impaired Gait No (0 pts) Mobility Assist Device Used No (0 pt) Altered Elimination No (0 pt) Score/Fall Risk Level 0 - 2 = Low Risk Oriented to surroundings, Maintained a safe environment, Hourly rounding (assess needs \T\ fall precautionary measures) done. Abuse screen: Denies threats or abuse. Denies injuries from another. Nutritional screening: No deficits noted. Tuberculosis screening: No symptoms or risk factors identified. Assessment: 16:34 General: Appears in no apparent distress. uncomfortable, Behavior is calm, cooperative. mb9 Pain: Complains of pain in right ankle, right knee and left medial ankle Pain currently is 9 out of 10 on a pain scale. Neuro: No deficits noted. Level of Consciousness is awake, alert, obeys commands, Oriented to person, place, time, situation, Appropriate for age. Respiratory: No deficits noted. Airway is patent Respiratory effort is even, unlabored, Respiratory pattern is regular, symmetrical. Musculoskeletal: Reports pain in right ankle, right knee and left lateral ankle. Vital Signs: 16:16 BP 143 / 89; Pulse 71; Resp 16; Temp 97.6; Pulse Ox 100% ; Weight 86.18 kg; Height 5 ll1 ft. 5 in. ; Pain 9/10; 16:16 Body Mass Index 31.62 (86.18 kg, 165.1 cm) ll1 16:16 Pain Scale: Adult ll1 ED Course: 16:07 Patient arrived in ED. ra3 16:11 Marciano Pearson PA is PHCP. cp 16:11 Marciano Olivas MD is Attending Physician. cp 16:16 Arm band placed on. ll1 16:19 Triage completed. ll1 16:20 Wendy Shields, RN is Primary Nurse. mb9 16:36 Patient has correct armband on for positive identification. Bed in low position. Call mb9 light in reach. Side rails up X2. Provided Education on: ER process and procedures.. 16:36 Ice pack applied to right foot and right knee. mb9 16:55 Primary Nurse role handed off by Wendy Shields, RN cm10 16:55 Carolyn Sparks, RN is Primary Nurse. cm10 17:18 XRAY Knee RIGHT 3 view In Process Unspecified. EDMS 17:18 XRAY Ankle RIGHT 3 view In Process Unspecified. EDMS 17:18 XRAY Foot RIGHT 3 View In Process Unspecified. EDMS 17:18 XRAY Ankle LEFT 3 view In Process Unspecified. EDMS 18:38 XRAY Foot LEFT 3 View In Process Unspecified. EDMS 18:46 Kodak Bennett MD is Referral Physician. cp 19:20 No provider procedures requiring assistance completed. Patient did not have IV access cm10 during this emergency room visit. Julius tape right fourth toe and right fifth toe 3D boot applied to right foot. Administered Medications: 16:32 Drug: Ibuprofen PO 800 mg PO once Route: PO; mb9 17:30 Follow up: Response: No adverse reaction cm10 16:32 Drug: Hydrocodone-Acetaminophen PO (7.5 mg-325 mg) 1 tabs PO once; RASS on ADMIN: mb9 Combtv4, Very Agttd3, Agttd2, Rstlss1, AlertClm0, Drwsy-1, Lt Sdtn-2, Mod Sdtn-3, Dp Sdtn-4, UnArsble-5 Route: PO; 17:30 Follow up: Response: No adverse reaction; RASS: Alert and Calm (0) cm10 Medication: 16:36 VIS not applicable for this client. mb9 Outcome: 18:48 Discharge ordered by MD. cp 19:21 Discharged to home via wheelchair, with family, 10 19:21 Condition: good 19:21 Discharge instructions given to patient, Instructed on discharge instructions, follow up and referral plans. medication usage, Demonstrated understanding of instructions, follow-up care, medications, Prescriptions given X 1, 19:21 Patient left the ED. cm10 Signatures: Dispatcher [employer] EDMS Marciano Pearson PA PA cp Lala Kim, RN RN ll1 Wendy Shields, RN RN mb9 Carolyn Sparks RN RN cm10 Marcella Cuellar ra3
[2024-05-22 21:31] VITALS: BP 143/89; TEMP 97.6; O2SAT 100
== END 2024-05-22 19:21 | disposition home or self-care (01) ==
LOC: ER 16:04
DX: S92.511A Displaced fracture of proximal phalanx of right lesser toe(s), initial encounter for closed fracture (principal); M25.561 Pain in right knee; M25.572 Pain in left ankle and joints of left foot; M25.571 Pain in right ankle and joints of right foot; W18.30XA Fall on same level, unspecified, initial encounter
CPT/HCPCS: 99283

== ENCOUNTER 2024-07-18 23:03 | Emergency (ER) | payer BC ==
[2024-07-19] MEDS ORDERED: ACETAMINOPHEN 500 MG TAB ONE (00:49)
[2024-07-19] MEDS ORDERED: KETOROLAC 30 MG/ML INJ ONE (01:18)
[2024-07-19 01:40] LABS: Specific Gravity 1.007 (1.005-1.030); Sqamous Epithelial <5 /HPF (None Seen); Urine Bacteria None Seen /HPF (<20); Urine Bilirubin NEGATIVE (Negative); Urine Blood Negative (Negative); Urine Clarity Clear (Clear); Urine Color Colorless (Yellow); Urine Culture Reflex Order NOT NEEDED; Urine Glucose NEGATIVE (Negative); Urine Ketones NEGATIVE (Negative); Urine Micro Reflex YN NO BILL MICROSCOPIC; Urine Nitrite NEGATIVE (Negative); Urine Protein NEGATIVE (Negative); Urine RBC None Seen /HPF (None Seen); Urine Urobilinogen Normal (Normal); Urine WBC <5 /HPF (<5); Urine pH 6.5 (5.0-7.0)
[2024-07-19 01:50] LABS: SARS-CoV-2 Antigen CONTROL BLUE LINE VIS/BG OK; SARS-CoV-2 Antigen Rapid Res Negative (Negative)
--- NOTE | 2024-07-19 01:53 | ER ---
Nurse's Notes [facility] Name: Mi Ortiz Age: 58 yrs Sex: Female : 1965 Arrival Date: 07/18/2024 Time: 23:03 Bed 13 Private MD: Diagnosis: Headache;Hypertensive heart disease without heart failure Presentation: 07/18 23:16 Chief complaint: Patient states: sinus pressure and high blood pressure. Coronavirus vc1 screen: Vaccine status: Patient reports receiving the 2nd dose of the covid vaccine. Client denies travel out of the [place] in the last 14 days. At this time, the client does not indicate any symptoms associated with coronavirus-19. Ebola Screen: Patient negative for fever greater than or equal to 101.5 degrees Fahrenheit, and additional compatible Ebola Virus Disease symptoms Patient denies exposure to infectious person. Patient denies travel to an Ebola-affected area in the 21 days before illness onset. No symptoms or risks identified at this time. Initial Sepsis Screen: Does the patient meet any 2 criteria? No. Patient's initial sepsis screen is negative. Does the patient have a suspected source of infection? No. Patient's initial sepsis screen is negative. Risk Assessment: Do you want to hurt yourself or someone else? Patient reports no desire to harm self or others. Onset of symptoms was July 18, 2024. 23:16 Method Of Arrival: Ambulatory vc1 23:16 Acuity: CARMEN 4 vc1 Triage Assessment: 07/19 00:10 General: Appears uncomfortable, Behavior is calm, cooperative. Pain: Complains of pain kl in face. Neuro: No deficits noted. Historical: - Allergies: 07/18 23:18 amoxicillin-pot clavulanate; vc1 - Home Meds: 07/19 00:11 losartan 25 mg oral tablet daily [Active]; hydrochlorothiazide 25 mg Oral tablet daily kl [Active]; - PMHx: 07/18 23:18 Depression; Hypertension; vc1 - PSHx: 23:18 Bladder lift; vc1 - Immunization history:: Client reports receiving the 2nd dose of the Covid vaccine, Flu vaccine is not up to date. - Infectious Disease History:: Denies. - Social history:: Smoking status: Patient denies any tobacco usage or history of. Screenin:18 Abuse screen: Denies threats or abuse. Nutritional screening: No deficits noted. vc1 Tuberculosis screening: No symptoms or risk factors identified. 07/19 02:03 [facility] ED Fall Risk Assessment (Adult) History of falling in the last 3 months, rg5 including since admission No falls in past 3 months (0 pts) Confusion or Disorientation No (0 pts) Intoxicated or Sedated No (0 pts) Impaired Gait No (0 pts) Mobility Assist Device Used No (0 pt) Altered Elimination No (0 pt) Score/Fall Risk Level 0 - 2 = Low Risk. Assessment: 01:30 Reassessment: No changes from previously documented assessment. Patient and/or family rg5 updated on plan of care and expected duration. Pain level reassessed. Vital Signs: 07/18 23:16 BP 161 / 90; Pulse 60; Resp 16; Temp 97.1; Pulse Ox 100% ; Weight 86.18 kg; Height 5 vc1 ft. 5 in. ; Pain 10/10; 07/19 00:58 BP 147 / 89; Pulse 60; Resp 18; Temp 97.9(O); Pulse Ox 100% ; Pain 5/10; rg5 01:45 BP 118 / 73; Pulse 63; Resp 17; Temp 98(O); Pulse Ox 99% on R/A; Pain 0/10; rg5 07/18 23:16 Body Mass Index 31.62 (86.18 kg, 165.1 cm) vc1 07/18 23:16 Pain Scale: Adult vc1 07/19 00:58 Pain Scale: Adult rg5 01:45 Pain Scale: Adult rg5 ED Course: 07/18 23:05 Patient arrived in ED. ra3 23:18 Triage completed. vc1 23:18 Arm band placed on right wrist. vc1 23:24 Marciano Pearson PA is PHCP. cp 23:24 Zeke Puckett MD is Attending Physician. cp 07/19 00:43 Hilario Toth, LOGAN is Primary Nurse. rg5 02:03 Patient has correct armband on for positive identification. Provided Education on: POST rg5 ER CARE. 02:03 No provider procedures requiring assistance completed. Patient did not have IV access rg5 during this emergency room visit. Administered Medications: 00:59 Drug: Acetaminophen PO 1000 mg PO once Route: PO; rg5 01:08 Follow up: Response: No adverse reaction; Pain is decreased rg5 01:23 Drug: Ketorolac IM 30 mg IM once; for headache Route: IM; Site: left gluteus; rg5 01:30 Follow up: Response: No adverse reaction; Pain is decreased rg5 Medication: 02:03 VIS not applicable for this client. rg5 Outcome: 01:53 Discharge ordered by . jose 02:03 Discharged to home ambulatory, rg5 02:03 Condition: stable 02:03 Discharge instructions given to patient, Instructed on discharge instructions, follow up and referral plans. Demonstrated understanding of instructions, follow-up care, 02:04 Patient left the ED. rg5 Signatures: Cherry Kim RN RN Marciano Mendoza PA PA cp Calcote, Vanessa, RN RN vc1 Marcella Cuellar ra3 Hilario Toth RN RN rg5
--- NOTE | 2024-07-19 01:53 | EDPHYS ---
Physician Documentation [facility] Name: Mi Ortiz Age: 58 yrs Sex: Female : 1965 Arrival Date: 07/18/2024 Time: 23:03 Bed 13 Private MD: ED Physician Zeke Puckett HPI: 07/18 23:34 This 58 yrs old Female presents to ER via Ambulatory with complaints of High cp Blood Pressure. 23:34 The patient has elevated blood pressure and discovered this at home, with a home device.cp 23:34 Onset: The symptoms/episode began/occurred today. Associated signs and symptoms: cp Pertinent positives: sinus pressure, sore throat, headache. Severity of symptoms: in the emergency department the blood pressure is improved, moderately. Historical: - Allergies: 23:18 amoxicillin-pot clavulanate; vc1 - Home Meds: 07/19 00:11 losartan 25 mg oral tablet daily [Active]; hydrochlorothiazide 25 mg Oral tablet daily kl [Active]; - PMHx: 07/18 23:18 Depression; Hypertension; vc1 - PSHx: 23:18 Bladder lift; vc1 - Immunization history:: Client reports receiving the 2nd dose of the Covid vaccine, Flu vaccine is not up to date. - Infectious Disease History:: Denies. - Social history:: Smoking status: Patient denies any tobacco usage or history of. ROS: 23:40 Constitutional: Negative for body aches, chills, fever, poor PO intake, cp 23:40 Eyes: Negative for injury, pain, redness, and discharge, cp 23:40 ENT: Positive for sore throat, 23:40 Respiratory: Negative for shortness of breath, wheezing, 23:40 Abdomen/GI: Negative for abdominal pain, vomiting, diarrhea, constipation, 23:40 : Negative for hematuria, burning with urination, 23:40 Neuro: Positive for headache, Negative for altered mental status, dizziness, weakness, 23:40 Cardiovascular: Negative for chest pain, edema, palpitations, cp 23:40 All other systems are negative, cp Exam: 23:45 Constitutional: The patient appears in no acute distress, alert, awake, non-toxic, well cp developed, well nourished, 23:45 Head/Face: Normocephalic, atraumatic. cp 23:45 Eyes: Periorbital structures: appear normal, Conjunctiva: normal, no exudate, no injection, Sclera: no appreciated abnormality, Lids and lashes: appear normal, bilaterally, 23:45 ENT: External ear(s): are unremarkable, Nose: is normal, Mouth: Lips: moist, Oral mucosa: pink and intact, moist, Posterior pharynx: Airway: no evidence of obstruction, patent, 23:45 Chest/axilla: Inspection: normal, 23:45 Cardiovascular: Rate: normal, Rhythm: regular, 23:45 Respiratory: the patient does not display signs of respiratory distress, Respirations: normal, no use of accessory muscles, no retractions, labored breathing, is not present, Breath sounds: are clear throughout, no decreased breath sounds, no stridor, no wheezing, 23:45 Abdomen/GI: Inspection: abdomen appears normal, Palpation: abdomen is soft and non-tender, in all quadrants, 23:45 Neuro: Orientation: to person, place \T\ time. Mentation: is normal, Motor: moves all fours, strength is normal, Gait: is steady, at a normal pace, without difficulty, Vital Signs: 23:16 BP 161 / 90; Pulse 60; Resp 16; Temp 97.1; Pulse Ox 100% ; Weight 86.18 kg; Height 5 vc1 ft. 5 in. ; Pain 10/10; / 00:58 BP 147 / 89; Pulse 60; Resp 18; Temp 97.9(O); Pulse Ox 100% ; Pain 5/10; rg5 01:45 BP 118 / 73; Pulse 63; Resp 17; Temp 98(O); Pulse Ox 99% on R/A; Pain 0/10; rg5 07/18 23:16 Body Mass Index 31.62 (86.18 kg, 165.1 cm) vc1 07/18 23:16 Pain Scale: Adult vc1 07/19 00:58 Pain Scale: Adult rg5 01:45 Pain Scale: Adult rg5 MDM: 07/18 23:24 Medical Screening Exam initiated 07/19 00:00 Differential diagnosis: hypertensive crisis, Malignant HTN, CVA, intracerebral cp hemorrhage, COVID, strep, influenza. 01:53 Data reviewed: vital signs, nurses notes, lab test result(s), and as a result, I will cp discharge patient. 01:53 I considered the following discharge prescriptions or medication management in the cp emergency department Medications were administered in the Emergency Department. See MAR. Counseling: I had a detailed discussion with the patient and/or guardian regarding the historical points, exam findings, and any diagnostic results supporting the discharge/admit diagnosis, lab results, to return to the emergency department if symptoms worsen or persist or if there are any questions or concerns that arise at home. Response to treatment: the patient's symptoms have markedly improved after treatment, and as a result, I will discharge patient. 07/18 23:34 Order name: Influenza Screen (a \T\ B) 07/18 23:34 Order name: Strep; Complete Time: 01:51 07/19 01:52 Interpretation: Reviewed. 07/18 23:34 Order name: SARS RAPID; Complete Time: 01:51 07/19 01:52 Interpretation: Reviewed. 07/18 23:34 Order name: Urinalysis W/Microscopic; Complete Time: 01:44 07/19 01:44 Interpretation: Reviewed. 07/19 01:53 Order name: Throat Culture [facility] 07/19 00:51 Order name: Vital Signs: blood pressure update; Complete Time: 00:59 cp Administered Medications: 00:59 Drug: Acetaminophen PO 1000 mg PO once Route: PO; rg5 01:08 Follow up: Response: No adverse reaction; Pain is decreased rg5 01:23 Drug: Ketorolac IM 30 mg IM once; for headache Route: IM; Site: left gluteus; rg5 01:30 Follow up: Response: No adverse reaction; Pain is decreased rg5 Disposition: 20:05 Co-signature as Attending Physician, Zeke Puckett MD I agree with the assessment sp4 and plan of care. I reviewed the patient's care provided by the Advanced Practice Provider and agree with the diagnosis and treatment plan. Disposition Summary: 07/19/24 01:53 Discharge Ordered Notes: Location: Home cp Problem: new cp Symptoms: have improved cp Condition: Stable cp Diagnosis - Headache cp - Hypertensive heart disease without heart failure cp Followup: cp - With: Private Physician - When: 2 - 3 days - Reason: Worsening of condition Discharge Instructions: - Discharge Summary Sheet cp - General Headache Without Cause cp - Hypertension, Adult cp - Aspirin and Your Heart cp - Form - Blood Pressure Record Sheet cp - How to Take Your Blood Pressure cp Forms: - Medication Reconciliation Form cp - Antibiotic Education cp - Prescription Opioid Use cp - Patient Portal Instructions cp - Leadership Thank You Letter cp Prescriptions: - Ibuprofen 800 mg Oral tablet - take 1 tablet ORAL route every 8-12 hours As needed take with food; 30 tablet; cp Refills: 0, Product Selection Permitted Signatures: Dispatcher [employer] EDMS Cherry Kim RN RN Marciano Mendoza PA PA cp Angela Rothman RN RN vc1 Zeke Puckett MD MD sp4 Hilario Toth RN RN rg5 Corrections: (The following items were deleted from the chart) 07/18 23:34 23:34 Influenza Screen (A \T\ B)+BA.LAB.BRZ ordered. EDMS EDMS 23:34 23:34 Group A Streptococcus Rapid Sc+BA.LAB.BRZ ordered. EDMS EDMS 23:34 23:34 SARS-COV-2 Antigen Rapid+I.LAB.BRZ ordered. EDMS EDMS 23:34 23:34 Urinalysis W/Microscopic+U.LAB.BRZ ordered. EDMS EDMS
[2024-07-19 02:50] VITALS: BP 118/73; TEMP 98; O2SAT 99
== END 2024-07-19 02:04 | disposition home or self-care (01) ==
LOC: ER 23:03
DX: I11.9 Hypertensive heart disease without heart failure (principal); I10 Essential (primary) hypertension; Z11.52 Encounter for screening for COVID-19
CPT/HCPCS: 36415; 81001; 87070; 87081; 87804; 87811; 96372; 99284

== ENCOUNTER 2024-07-20 05:16 | Emergency (ER) | payer BC ==
--- NOTE | 2024-07-20 05:31 | ER ---
Nurse's Notes [facility] Name: Mi Ortiz Age: 58 yrs Sex: Female : 1965 Arrival Date: 07/20/2024 Time: 05:16 Bed 7 Private MD: Diagnosis: Dental Pain Presentation: 07/20 05:24 Chief complaint: Patient states: went to dentist yesterday, started antibiotics, still vc1 hurts to left ear and left eye. Coronavirus screen: Client denies travel out of the [place] in the last 14 days. At this time, the client does not indicate any symptoms associated with coronavirus-19. Ebola Screen: Patient negative for fever greater than or equal to 101.5 degrees Fahrenheit, and additional compatible Ebola Virus Disease symptoms Patient denies exposure to infectious person. Patient denies travel to an Ebola-affected area in the 21 days before illness onset. No symptoms or risks identified at this time. Initial Sepsis Screen: Does the patient meet any 2 criteria? No. Patient's initial sepsis screen is negative. Does the patient have a suspected source of infection? No. Patient's initial sepsis screen is negative. Risk Assessment: Do you want to hurt yourself or someone else?. Onset of symptoms was July 19, 2024. 05:24 Method Of Arrival: Ambulatory vc1 05:24 Acuity: CARMEN 4 vc1 Triage Assessment: 05:28 General: Appears in no apparent distress. uncomfortable, Behavior is calm, cooperative, vc1 appropriate for age. Pain: Complains of pain in left upper tooth Pain radiates to left ear and left eye Pain currently is 10 out of 10 on a pain scale. EENT: Reports pain Pain is 10 out of 10 on a pain scale. Neuro: Level of Consciousness is awake, alert, obeys commands, Oriented to person, place, time, situation, Appropriate for age. Cardiovascular: Capillary refill < 3 seconds Patient's skin is warm and dry. Respiratory: Airway is patent Respiratory effort is even, unlabored, Respiratory pattern is regular, symmetrical. GI: No deficits noted. No signs and/or symptoms were reported involving the gastrointestinal system. : No deficits noted. No signs and/or symptoms were reported regarding the genitourinary system. Derm: Skin is intact, is healthy with good turgor, Skin is dry, Skin is normal, Skin temperature is warm. Musculoskeletal: Circulation, motion, and sensation intact. Range of motion: intact in all extremities. Historical: - Allergies: 05:26 amoxicillin-pot clavulanate; vc1 - Home Meds: 05:26 hydrochlorothiazide 25 mg Oral tablet daily [Active]; losartan 25 mg Oral tablet daily vc1 [Active]; - PMHx: 05:26 Depression; Hypertension; vc1 - PSHx: 05:26 Bladder lift; vc1 - Immunization history:: Client reports receiving the 2nd dose of the Covid vaccine, Flu vaccine is not up to date. - Infectious Disease History:: Denies. - Social history:: Smoking status: Patient denies any tobacco usage or history of. Screenin:27 [facility] ED Fall Risk Assessment (Adult) History of falling in the last 3 months, vc1 including since admission No falls in past 3 months (0 pts) Confusion or Disorientation No (0 pts) Intoxicated or Sedated No (0 pts) Impaired Gait No (0 pts) Mobility Assist Device Used No (0 pt) Altered Elimination No (0 pt) Score/Fall Risk Level 0 - 2 = Low Risk Oriented to surroundings, Maintained a safe environment, Educated pt \T\ family on fall prevention, incl call for assistance when getting out of bed. Abuse screen: Denies threats or abuse. Nutritional screening: No deficits noted. Tuberculosis screening: No symptoms or risk factors identified. Vital Signs: 05:24 Weight 86.18 kg; Height 5 ft. 5 in. ; Pain 10/10; vc1 05:30 BP 146 / 95; Pulse 72; Resp 20; Temp 97.3; Pulse Ox 99% ; vc1 05:24 Body Mass Index 31.62 (86.18 kg, 165.1 cm) vc1 05:24 Pain Scale: Adult vc1 ED Course: 05:17 Patient arrived in ED. ra3 05:19 Alphonso Wray DO is Attending Physician. ms3 05:26 Triage completed. vc1 05:28 Arm band placed on right wrist. vc1 05:28 Patient has correct armband on for positive identification. Bed in low position. Call vc1 light in reach. Pulse ox on. NIBP on. 05:29 Chela Alatorre RN is Primary Nurse. br2 05:30 Maciej De La Garza DDS is Referral Physician. ms3 05:48 Provided Education on: plan of care , D/C instructions. ay 05:48 No provider procedures requiring assistance completed. Patient did not have IV access ay during this emergency room visit. Administered Medications: 05:37 Drug: Clindamycin PO 300 mg PO once Route: PO; ay 05:51 Follow up: Response: No adverse reaction ay 05:37 Drug: HYDROcodone-acetaminophen PO 5 mg-325 mg 1 tabs PO once Route: PO; ay 05:51 Follow up: Response: No adverse reaction ay Medication: 05:30 VIS not applicable for this client. vc1 Outcome: 05:30 Discharge ordered by MD. ms3 05:48 Discharged to home ambulatory, ay 05:48 Condition: stable 05:48 Discharge instructions given to patient, Instructed on discharge instructions, follow up and referral plans. 05:50 Patient left the ED. ay Signatures: Alphonso Wray, DO ms3 Angela Rothman RN RN vc1 Marcella Cuellar ra3 Chela Alatorre RN RN br2 Bruce Bryant RN RN ay
--- NOTE | 2024-07-20 05:31 | EDPHYS ---
Physician Documentation [facility] Name: Mi Gutiérrez Age: 58 yrs Sex: Female : 1965 Arrival Date: 07/20/2024 Time: 05:16 Bed 7 Private MD: ED Physician Alphonso Wray HPI: 07/20 08:08 This 58 yrs old Female presents to ER via Ambulatory with complaints of ms3 Toothache. 08:08 Mi Gutiérrez is a 58-year-old female who presents to the emergency ms3 department with tooth pain. She reports seeing a dentist but continues to experience significant discomfort, affecting her ability to sleep. She describes associated pain involving her eyes, ears, nose, and mouth. She has been taking ibuprofen for two days, but it has not provided relief. She states she took the 2 pills of Azithromycin that she was prescribed and the pain continues.. Historical: - Allergies: 05:26 amoxicillin-pot clavulanate; vc1 - Home Meds: 05:26 hydrochlorothiazide 25 mg Oral tablet daily [Active]; losartan 25 mg Oral tablet daily vc1 [Active]; - PMHx: 05:26 Depression; Hypertension; vc1 - PSHx: 05:26 Bladder lift; vc1 - Immunization history:: Client reports receiving the 2nd dose of the Covid vaccine, Flu vaccine is not up to date. - Infectious Disease History:: Denies. - Social history:: Smoking status: Patient denies any tobacco usage or history of. ROS: 08:08 Constitutional: Negative for fever, and chills. Cardiovascular: Negative for chest ms3 pain, and palpitations. Respiratory: Negative for shortness of breath, cough, wheezing, and pleuritic chest pain, Abdomen/GI: Negative for abdominal pain, nausea, vomiting, diarrhea, and constipation, 08:08 MS/Extremity: Negative for injury and deformity, Skin: Negative for injury, rash, and discoloration, 08:08 ENT: Positive for dental pain, Exam: 08:08 Constitutional: This is a well developed, well nourished patient who is awake, alert, ms3 and in no acute distress. Chest/axilla: Normal chest wall appearance and motion. Nontender with no deformity. Cardiovascular: Regular rate and rhythm with a normal S1 and S2. No gallops, murmurs, or rubs. Normal PMI, no JVD. No pulse deficits. Respiratory: Lungs have equal breath sounds bilaterally, clear to auscultation and percussion. No rales, rhonchi or wheezes noted. No increased work of breathing, no retractions or nasal flaring. Abdomen/GI: Soft, non-tender, with normal bowel sounds. No distension or tympany. No guarding or rebound. No evidence of tenderness throughout. 08:08 ENT: Dental exam: pain, that is severe, specifically in the upper left lateral incisor (#10), Vital Signs: 05:24 Weight 86.18 kg; Height 5 ft. 5 in. ; Pain 10/10; vc1 05:30 BP 146 / 95; Pulse 72; Resp 20; Temp 97.3; Pulse Ox 99% ; vc1 05:24 Body Mass Index 31.62 (86.18 kg, 165.1 cm) vc1 05:24 Pain Scale: Adult vc1 MDM: 05:29 Medical Screening Exam initiated ms3 08:08 Differential diagnosis: dental caries, gingivitis, dental abscess. Data reviewed: vital ms3 signs, nurses notes, and as a result, I will discharge patient. I considered the following discharge prescriptions or medication management in the emergency department Medications were administered in the Emergency Department. See MAR. Care significantly affected by the following chronic conditions: Hypertension. Counseling: I had a detailed discussion with the patient and/or guardian regarding the historical points, exam findings, and any diagnostic results supporting the discharge/admit diagnosis, the need for outpatient follow up, to return to the emergency department if symptoms worsen or persist or if there are any questions or concerns that arise at home. Special discussion: I discussed with the patient/guardian in detail that at this point there is no indication for admission to the hospital. It is understood, however, that if the symptoms persist or worsen the patient needs to return immediately for re-evaluation. ED course: Discussed physical exam findings with patient. Patient to follow-up with dentistry in 2 to 3 days. Patient understands agrees with plan. All questions were answered. Return precautions discussed include worsening symptoms, or any other concerns. On exam patient without signs/symptoms of [place] angina. Administered Medications: 05:37 Drug: Clindamycin PO 300 mg PO once Route: PO; ay 05:51 Follow up: Response: No adverse reaction ay 05:37 Drug: HYDROcodone-acetaminophen PO 5 mg-325 mg 1 tabs PO once Route: PO; ay 05:51 Follow up: Response: No adverse reaction ay Disposition Summary: 07/20/24 05:30 Discharge Ordered Notes: Location: Home ms3 Condition: Stable ms3 Diagnosis - Dental Pain ms3 Followup: ms3 - With: Maciej De La Garza DDS - When: 2 - 3 days - Reason: Recheck today's complaints Discharge Instructions: - Discharge Summary Sheet ms3 - Dental Pain, [id number] ms3 Forms: - Medication Reconciliation Form ms3 - Antibiotic Education ms3 - Prescription Opioid Use ms3 - Patient Portal Instructions ms3 - Leadership Thank You Letter ms3 Prescriptions: - Clindamycin HCl 300 mg Oral capsule - take 1 capsule ORAL route every 8 hours for 7 days; 21 capsule; Refills: 0, ms3 Product Selection Permitted - Ibuprofen 600 mg Oral Tablet - take 1 tablet ORAL route every 6 hours As needed take with food; 30 tablet; ms3 Refills: 0, Product Selection Permitted Signatures: Alphonso Wray DO DO ms3 Angela Rothman RN RN vc1 Bruce Bryant, RN RN ay
[2024-07-20] MEDS ORDERED: HYDROCODONE/APAP 5/325 MG TAB ONE (05:34)
[2024-07-20 05:55] VITALS: BP 146/95; TEMP 97.3; O2SAT 99
== END 2024-07-20 05:50 | disposition home or self-care (01) ==
LOC: ER 05:16
DX: K08.89 Other specified disorders of teeth and supporting structures (principal)
CPT/HCPCS: 99283

== ENCOUNTER 2024-09-18 14:28 | Emergency (ER) | payer BC ==
--- NOTE | 2024-09-18 15:08 | RAD REPORT ---
EXAMINATION: XR RIGHT KNEE CLINICAL INDICATION: Female, 59 years old. PAIN TECHNIQUE: Multiple views of the right knee were obtained. COMPARISON: 05/22/2024 FINDINGS: Mild osteoarthritis affects the medial joint compartment. No fracture, dislocation seen. Mi ld chondrocalcinosis is seen. Small moderate suprapatellar joint effusion. If clinical symptomology persists, nonemergent MRI follow-up may be useful.
--- NOTE | 2024-09-18 15:13 | ER ---
Nurse's Notes [facility] Name: Mi Ortiz Age: 59 yrs Sex: Female : 1965 Arrival Date: 09/18/2024 Time: 14:28 Bed IW2 Private MD: Diagnosis: Pain in right knee Presentation: 09/18 14:38 Chief complaint: Patient states: Fell onto R knee 2 weeks ago. Pain and swelling since. ll1 Coronavirus screen: Client denies travel out of the [place] in the last 14 days. At this time, the client does not indicate any symptoms associated with coronavirus-19. Ebola Screen: Patient denies travel to an Ebola-affected area in the 21 days before illness onset. Initial Sepsis Screen: Does the patient meet any 2 criteria? No. Patient's initial sepsis screen is negative. Does the patient have a suspected source of infection? No. Patient's initial sepsis screen is negative. Risk Assessment: Do you want to hurt yourself or someone else? Patient reports no desire to harm self or others. Onset of symptoms was September 03, 2024. 14:38 Method Of Arrival: Ambulatory ll1 14:38 Acuity: CARMEN 4 ll1 Triage Assessment: 14:40 General: Appears uncomfortable, Behavior is calm, cooperative, appropriate for age. ll1 Pain: Complains of pain in R knee Quality of pain is described as aching. Musculoskeletal: Reports pain in R knee. Injury Description: Bruise. Historical: - Allergies: 14:40 amoxicillin-pot clavulanate; ll1 - PMHx: 14:40 Depression; Hypertension; ll1 - PSHx: 14:40 Bladder lift; ll1 - Immunization history:: Adult Immunizations up to date. - Infectious Disease History:: Denies. - Social history:: Smoking status: Patient denies any tobacco usage or history of. Screenin:17 [facility] ED Fall Risk Assessment (Adult) History of falling in the last 3 months, ll1 including since admission Yes- single mechanical fall (1 pt) Confusion or Disorientation No (0 pts) Intoxicated or Sedated No (0 pts) Impaired Gait No (0 pts) Mobility Assist Device Used No (0 pt) Altered Elimination No (0 pt) Score/Fall Risk Level 0 - 2 = Low Risk Maintained a safe environment, Hourly rounding (assess needs \T\ fall precautionary measures) done. Abuse screen: Denies threats or abuse. Nutritional screening: No deficits noted. Tuberculosis screening: No symptoms or risk factors identified. Assessment: 15:16 Reassessment: No changes from previously documented assessment. Patient and/or family ll1 updated on plan of care and expected duration. Pain level reassessed. Patient is alert, oriented x 3, equal unlabored respirations, skin warm/dry/pink. Vital Signs: 14:38 BP 130 / 89; Pulse 71; Resp 17; Temp 97.9; Pulse Ox 100% on R/A; Weight 87.09 kg; ll1 Height 5 ft. 5 in. ; Pain 10/10; 14:38 Body Mass Index 31.95 (87.09 kg, 165.1 cm) ll1 14:38 Pain Scale: Adult ll1 ED Course: 14:31 Patient arrived in ED. im 14:36 Pete Davies MD is Attending Physician. rt 14:36 Rhiannon Ramirez FNP-C is [facility]. kb 14:40 Triage completed. ll1 14:44 Arm band placed on. ll1 15:03 Knee Right 3 View XRAY In Process Unspecified. EDMS 15:17 Patient has correct armband on for positive identification. Provided Education on: ll1 return to ED for worsening symptoms. 15:17 No provider procedures requiring assistance completed. Patient did not have IV access ll1 during this emergency room visit. Administered Medications: No medications were administered Medication: 15:37 VIS not applicable for this client. ll1 Outcome: 15:12 Discharge ordered by . kb 15:17 Patient left the ED. ll1 15:17 Discharged to home ambulatory, ll1 15:17 Condition: stable 15:17 Discharge instructions given to patient, Instructed on discharge instructions, follow up and referral plans. medication usage, Demonstrated understanding of instructions, follow-up care, medications, Prescriptions given X 1, Signatures: Dispatcher [employer] EDMS Rhiannon Ramirez FNP-C FNP-Ckb Lewis, Lynsay, RN RN ll1 Pete Davies MD MD rt Tory Mcknight im
--- NOTE | 2024-09-18 15:13 | EDPHYS ---
Physician Documentation [facility] Name: Mi Ortiz Age: 59 yrs Sex: Female : 1965 Arrival Date: 09/18/2024 Time: 14:28 Bed IW2 Private MD: ED Physician Pete Davies HPI: 09/18 14:51 This 59 yrs old Female presents to ER via Ambulatory with complaints of Knee kb Pain - Right. 14:52 Pt is a 59 year old female who presents for right knee pain that started 2 weeks ago kb after falling directly onto it. Denies any other injury. States it isn't getting any better so she came in today to have it evaluated. . Historical: - Allergies: 14:40 amoxicillin-pot clavulanate; ll1 - PMHx: 14:40 Depression; Hypertension; ll1 - PSHx: 14:40 Bladder lift; ll1 - Immunization history:: Adult Immunizations up to date. - Infectious Disease History:: Denies. - Social history:: Smoking status: Patient denies any tobacco usage or history of. ROS: 14:51 Constitutional: As per HPI kb Exam: 14:51 Constitutional: This is a well developed, well nourished patient who is awake, alert, kb and in no acute distress. Head/Face: Normocephalic, atraumatic. ENT: Moist Mucous membranes Cardiovascular: Regular rate Respiratory: Respirations even and unlabored. No increased work of breathing. Talking in full sentences Skin: Warm, dry with normal turgor. Normal color. Neuro: Awake and alert, GCS 15, oriented to person, place, time, and situation. 14:51 Musculoskeletal/extremity: Extremities: grossly normal except: noted in the right knee: pain, ROM: intact in all extremities, Circulation is intact in all extremities. Sensation intact. Weight bearing: able to fully bear weight, Vital Signs: 14:38 BP 130 / 89; Pulse 71; Resp 17; Temp 97.9; Pulse Ox 100% on R/A; Weight 87.09 kg; ll1 Height 5 ft. 5 in. ; Pain 10/10; 14:38 Body Mass Index 31.95 (87.09 kg, 165.1 cm) ll1 14:38 Pain Scale: Adult ll1 MDM: 14:37 Medical Screening Exam initiated kb 14:51 Data reviewed: vital signs, nurses notes. kb 14:53 Differential diagnosis: dislocation, closed fracture, contusion, tendonitis. kb 15:12 Counseling: I had a detailed discussion with the patient and/or guardian regarding the kb historical points, exam findings, and any diagnostic results supporting the discharge/admit diagnosis, radiology results, the need for outpatient follow up, a orthopedic surgeon, to return to the emergency department if symptoms worsen or persist or if there are any questions or concerns that arise at home. 09/18 14:37 Order name: Knee Right 3 View XRAY; Complete Time: 15:12 kb Administered Medications: No medications were administered Disposition: 16:16 Co-signature as Attending Physician, Pete Davies MD I reviewed the patient's care rt provided by the Advanced Practice Provider and agree with the diagnosis and treatment plan. Disposition Summary: 09/18/24 15:12 Discharge Ordered Notes: Location: Home kb Condition: Stable kb Diagnosis - Pain in right knee kb Followup: kb - With: Emergency Department - When: As needed - Reason: Worsening of condition Followup: kb - With: Private Physician - When: 2 - 3 days - Reason: Recheck today's complaints, Continuance of care, Re-evaluation by your physician Discharge Instructions: - Discharge Summary Sheet kb - Musculoskeletal Pain kb - Acute Knee Pain, Adult, [id number] kb Forms: - Medication Reconciliation Form kb - Antibiotic Education kb - Prescription Opioid Use kb - Patient Portal Instructions kb - Leadership Thank You Letter kb Prescriptions: - Diclofenac Sodium 75 mg Oral tablet, delayed release (enteric coated) - take 1 tablet ORAL route 2 times per day As needed; 30 tablet; Refills: 0, kb Product Selection Permitted Signatures: Dispatcher [employer] EDRhiannon Chavira, FILM FLAT INSPECTOR-C FILM FLAT INSPECTOR-Lala Max, RN RN ll1 Pete Davies MD MD rt Corrections: (The following items were deleted from the chart) 14:37 14:37 Knee Right 3 View+[email or web address] ordered. EDOK RISA
[2024-09-18 15:51] VITALS: BP 130/89; TEMP 97.9; O2SAT 100
== END 2024-09-18 15:17 | disposition home or self-care (01) ==
LOC: ER 14:28
DX: M25.561 Pain in right knee (principal)